=== PATIENT | male | born 1935 | race Caucasian/White ===

== ENCOUNTER 2021-12-13 14:00 | Outpatient (RCR) | payer MEDICARE, OTHER, SELFPAY | END 2022-04-29 15:07 | disposition home or self-care (01) | PROVIDERS: PCP Surgery; Visit Provider Surgery | DX: M54.2 Cervicalgia (principal); Z51.89 Encounter for other specified aftercare | CPT/HCPCS: 97116; 97140; 97162; 97535 ==

== ENCOUNTER 2022-01-16 15:20 | Emergency (ER) | payer MEDICARE, OTHER, SELFPAY ==
[2022-01-16 15:34] VITALS: BP 127/57; PULSE 87; RESP 16; TEMP 36.8; O2SAT 96; BMI 27.9
--- NOTE | 2022-01-16 15:45 | CRLHL7_ITS ---
For Patients: As a result of the Cures Act, medical imaging exams and procedure reports are released immediately into your electronic medical record. You may view this report before your referring provider. If you have questions, please contact your health care provider. INDICATION: RIGHT CALF PAIN, CURRENTLY ON BLOOD THINNERS INDICATION: Calf pain. Currently on blood thinners. TECHNIQUE: Ultrasound venous duplex lower right extremity. Compression venous exam was performed using galvan-scale, color Doppler, and spectral Doppler imaging. COMPARISON: None. FINDINGS: Sonographic imaging demonstrates the right common femoral, deep femoral, superficial femoral, popliteal, posterior tibial and greater saphenous and the contralateral left common femoral veins to be fully compressible with normal color Doppler blood flow. IMPRESSION: No DVT identified in the right lower extremity. Dictated by Augusto Mendez MD @ 01/16/2022 4:39:45 PM Dictated by: Augusto Mendez MD @ 01/16/2022 16:39:54 (Electronically Signed)
--- OUTSIDE RECORDS SUMMARY | 2022-01-16 15:53 | XMS_ITS | Encounter Summary ---
:1935 Author Organization [facility] Address [address] [place] [address] Care Team Providers Name Role Phone Elsewhere, Pcp Primary Care Provider Unavailable Reason for Visit Reason Comments Follow-up Status update after holding the Torsemide dose Encounter Details Date Type Department Care Team Description 10/07/2021 Clinical Department of Zulma Kurtz Follow-up ( Status Communication Cardiovascular Bud Anderson update after Medicine in [phone] holding the [place], [place] (Work) Torsemide dose) [address] [place] [address] Social History Tobacco Use Types Packs/Day Years Used Date Smoking Tobacco: Never Smokeless Tobacco: Never Alcohol Use Standard Drinks/Week Comments No 0 (1 standard drink = 0.6 oz pure alcoho l) Alcohol Habits Answer Date Recorded How often do you have a drink containing alcohol? Never 09/25/2021 How many drinks containing alcohol do you have on a typical Not asked day when you are drinking? How often do you have six or more drinks on one occasion? No t asked Social Isolation Answer Date Recorded In a typical week, how many times do you More than three alex es a week 09/25/2021 talk on the phone with family, friends, or neighbors? How often do you get together with friends Twice a week 09/25/2021 or relatives? How often do you attend presybeterian or More than 4 times per year 09/25/2021 spiritism services? Do you belong to any clubs or Yes 09/25/2021 organizations such as presybeterian groups, unions, fraternal or athletic groups, or school groups? How often do you attend meetings of the More than 4 times pe r year 09/25/2021 clubs or organizations you belong to? Are you now , , , 09/25/2021 , never or living with a partner? Physical Activity Answer Date Recorded On average, how many days per week do you engage in moderate to 0 days 09/25/2021 strenuous exercise (like walking fast, running, jogging, dancing, swimming, biking, or other activities that cause a light or heavy sweat)? On average, how many minutes do you engage in exercise at th is 0 min 09/25/2021 level? Stress Answer Date Recorded Do you feel stress - tense, restless, nervous, or anxious, R ather much 09/25/2021 or unable to sleep at night because your mind is troubled all the time - these days? Financial Resource Strain Answer Date Recorded How hard is it for you to pay for the very basics like Not v erica hard 09/25/2021 food, housing, medical care, and heating? Intimate Partner Violence Answer Date Recorded Within the last year, have you been afraid of your partner o r No 09/25/2021 ex-partner? Within the last year, have you been humiliated or emotionall y No 09/25/2021 abused in other ways by your partner or ex-partner? Within the last year, have you been kicked, hit, slapped, or No 09/25/2021 otherwise physically hurt by your partner or ex-partner? Within the last year, have you been raped or forced to have any No 09/25/2021 kind of sexual activity by your partner or ex-partner? Food Insecurity Answer Date Recorded Within the past 12 months, you worried that your food would Never true 09/25/2021 run out before you got money to buy more. Within the past 12 months, the food you bought just didn't N ever true 09/25/2021 last and you didn't have money to get more. Transportation Needs Answer Date Recorded In the past 12 months, has lack of transportation kept you f rom No 09/25/2021 medical appointments or from getting medications? In the past 12 months, has lack of transportation kept you f rom No 09/25/2021 meetings, work, or getting things needed for daily living? Housing Stability Answer Date Recorded In the last 12 months, was there a time when you were not ab le No 09/25/2021 to pay the mortgage or rent on time? In the last 12 months, how many places have you lived? 1 09/25/2021 In the last 12 months, was there a time when you did not hav e a No 09/25/[address] or slept in a alf (including now)? Education Answer Date Recorded What is the highest level of school Bachelor's degree (e.g., BA, AB, 05/16/2019 you have completed or the highest BS) degree you have received? Sex Assigned at Date Recorded Male 08/14/2017 2:01 PM CDT documented as of this encounter Miscellaneous Notes Telephone Encounter - Zulma Kurtz R.N. - 10/08/2021 11:46 AM CDT Pt contacted and recommendation relayed Addendum Note - Zulma Kurtz R.N. - 10/08/2021 11:46 AM CDT Addended by: ZULMA KURTZ on: 10/08/2021 11:46 AM Modules accepted: Orders Telephone Encounter - Zulma Kurtz R.N. - 10/08/2021 11:28 AM CDT SUBJECTIVE CHIEF COMPLAINT / REASON FOR CALL Follow-up (Status update after holding the Torsemide dose) Information Discussed Mr and Mrs Franz were contacted to relay Dr. Romelia Chavarria's recommendation regarding the Torsemide dose. The recommendation to make the Torsemide as needed and when to take it 3 lbs /24 hours or 5 lbs /one week was reviewed. The medication list will be updated to reflect this change. PLAN Disposition/Recommendation: Patient verbalized an understanding of the plan of care and will contactus in the interim should questions or problems arise. Information/Education: patient/caller able to teach back Caller agreeable to plan of care: yes The following references were used: provider Sae Chavarria MD Telephone Encounter - Zulma Kurtz R.N. - 10/07/2021 4:08 PM CDT SUBJECTIVE CHIEF COMPLAINT / REASON FOR CALL Follow-up (Status update after holding the Torsemide dose) Information Discussed Spoke with Mr. Nii Franz who was instructed not to take his daily Torsemide, 10 mg, for about a week. He took the last dose on 09/29/21. He reports zero headrushes the stopped the next day and feelsmuch better. Vital signs in the last week: BP: 105/58, 110/61, 115/61, 117/66,118/61, 116/61, 115/62, 121/62 HR: 69, 77, 69, 76,67, 66, 68, 70 bpm Weight has ranged: 179.1 to 180.3 [address] Mrs. Franz does an excellent job at helping Nii manage his diet and fluid intake which keeps his weight very stable in the 179 to 180 pound range. PLAN The patient was advised to continue holding the Torsemide dose until Dr. Romelia Chavarria is able to see this message and send a recommendation. The patient will be contacted with the provider's recommendation. Disposition/Recommendation: notified provider and awaiting recommendations Information/Education: patient/caller able to teach back Caller agreeable to plan of care: yes The following references were used: nursing clinical judgement and provider Sae Chavarria MD documented in this encounter Plan of Treatment Not on filedocumented as of this encounter Visit Diagnoses Not on filedocumented in this encounter Care Teams Science Liaison Relationship Specialty Start Date End Date Elsewhere, Pcp PCP - General Internal Medicine 05/29/19 documented as of this encounter
--- OUTSIDE RECORDS SUMMARY | 2022-01-16 15:53 | XMS_ITS | Clinical Summary ---
:[address] [facility] Address [address] [place] [address] Care Team Providers Name Role Phone Elsewhere, Pcp Primary Care Provider Unavailable Source Comments Patient records contain information from all sites at [facility]. For routine questions regarding patient records, call [phone] during business hours, M-F 8:00 AM - 5:00 PM Central Time. Record requests for emergency care only can be directed to [phone] at any time.[facility] Allergies Active Allergy Reactions Severity Noted Date Comments Codeine Other (see comments), High 06/09/2016 vaso-v agal episode Shortness of breath Fentanyl Nausea Only, Other (see Low 10/11/2011 Slig ht nausea after eye comments) surgery and men neeta status changes. Midazolam Other (see comments) Low 04/12/2018 Memory loss Medications Medication Sig Dispensed Refills Start Date End Date Status loratadine (CLARITIN) Take 1 tablet by 0 09/30/2013 Active 10 mg tablet mouth daily as needed for allergies. pantoprazole Take 1 tablet by 0 08/08/2016 Active (PROTONIX) 40 mg EC mouth 2 (two) tablet times a day. One tablet 30 minutes prior to morning and evening meals vit Take 1 tablet by 0 03/10/2015 Ac tive C/E/Zn/coppr/lutein/ze mouth 2 (two) axan (PRESERVISION times a day. AREDS 2 ORAL) simvastatin (ZOCOR) 20 Take 1 tablet by 0 04/09/2013 Active mg tablet mouth daily. tamsulosin (FLOMAX) Take 0.4 mg by 0 12/14/2016 Active 0.4 mg 24 hr capsule mouth daily. melatonin 3 mg tablet Take 3 mg by mouth 0 Active at bedtime. peg 400-propylene Administer 1 drop 0 12/31/2013 Active glycol (SYSTANE) into both eyes 4 0.4-0.3 % ophthalmic (four) times a day solution as needed. fluticasone (FLONASE) Administer 1 spray 0 8 Active 50 mcg/actuation nasal into each nostril spray daily as needed for rhinitis. venlafaxine XR Take 150 mg by 0 10/31/2017 Active (EFFEXOR-XR) 150 mg 24 mouth daily with hr capsule breakfast. miscellaneous medical CPAP machine for 0 04/11/2019 Active supply misc home use at pressure: 4-12 cm/H2O, Heated humidifier x 1, Humidifier chamber x 1, nasal pillow mask with pillow cushion x 1, Heated tubing x 1, Headgear x 1, Filters: Disposable x 1pk & Reusable x 1pk, Length of Need: 99 months, Frequency of use: Daily levothyroxine Take 1 tablet (100 0 05/29/2019 Active (SYNTHROID, mcg total) by LEVOTHROID) 100 mcg mouth every tablet morning. apixaban (ELIQUIS) 5 Take 1 tablet (5 30 tablet 2 06/26/2019 Active mg tablet mg total) by mouth 2 (two) times a day. Additional Information Patient taking differently: 2.5 mg oral 2 times daily, Reported on 09/28/2021 loperamide (IMODIUM A-D) 2 Take 4 mg by mouth. Take 4 0 07/08/2019 Active mg capsule mg by mouth with 1st loose stool, then 2nd with each subsequent loose stool. Max of 16 mg in 24 hours. Take every other day. acetaminophen (TYLENOL) 500 Take 1,000 mg by mouth as 0 07/08/2019 Active mg tablet needed. Carafate 100 mg/mL TAKE 2 TEASPOONSFUL (10 ML) 900 mL 11 08/2020 Active suspension THREE TIMES A DAY AFTER MEALS Additional Information Patient taking differently: As needed, Reported on 09/28/2021 cyanocobalamin (VITAMIN Take 1,000 mcg by 0 Active B12) 1,000 mcg tablet mouth daily. Entresto 97-103 mg per TAKE 1 TABLET TWICE 180 tablet 3 2021 Active tablet A DAY famotidine (PEPCID) 40 mg Take 40 mg by mouth 0 04/28 Active tablet daily. metoprolol succinate Take 1 tablet (50 mg 180 tablet 3 022 07/06/2022 Active (TOPROL-XL) 50 mg 24 hr total) by mouth 2 tablet (two) times a day. Do not crush or chew. diclofenac sodium APPLY 2 GRAMS 0 08/06/2021 Active (VOLTAREN) 1 % gel TOPICALLY TO THE AFFECTED AREA FOUR TIMES DAILY torsemide (DEMADEX) 10 mg Take 1 tablet (10 mg 90 tablet 3 Active tablet total) by mouth as needed (take a dose if you have gain 3 lbs /24 hours or 5 lbs /1 week). Active Problems Patient Care Coordination Note Formatting of this note is different fro m the original. Interdisciplinary plan of care: Work together to start Entresto and incr ease it to the target dose identified by the provider. Improve heart failure self management th rough education including use of a sick day plan when appropriate. ? ? Follow a low sodium diet 2,000 mg or less per day ? ? Weigh daily ? ? Increase awareness of symptoms indicating worsening heart failure and/or fluid retention ? ? Optimize medications Entresto, spironolactone, Toprol XL as ordered by prescriber ? ? Contact RN healthcare administrative assistant for sudden weight gain or worsening symptoms ? ? 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 They have a mind of their own. 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 Stable. Was on iron but was stopped as this did not help. 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 Polyp Colon 05/18/2011 Overview: Overview: Colonoscopy 04/2011 polyp,Colonoscopy in 5 years Colonoscopy 02/2018 polyps, normal colon biopsies, repeat in 3 years depending upon health Dysfunction Erectile 05/09/2011 Varicose Vein Lower Extremity 05/09/2011 PreDiabetes 12/29/2009 Restless Leg Syndrome 12/29/2009 Hyperlipidemia Mixed 05/29/2009 Rhinitis Allergic 05/29/2009 Hypothyroidism 11/12/2006 Immunizations Name Administration Dates Next Due DT, Pediatric 09/13/1991 H1N1 All Forms 03/23/2009 H1N1 Inj 03/23/2009 HZV (ZOSTAVAX) 01/17/2011 Influenza (IM) Preservative Free 12/15/2009 Influenza Split 11/26/2012 Influenza TIV (IM) 11/27/2018, 12/06/2012, 12/23/2011, 12/15/2009, 12/02/2008, 01/06/2004 Influenza, Seasonal, Injectable 12/06/2012, 12/23/2011, 0910/2008, 01/06/2004 Influenza, Unspecified 11/27/2018, 12/28/2015 PCV13 10/17/2014 PPSV23 09/19/2018, 12/25/2000 RZV (SHINGRIX) 10/16/2018, 08/13/2018 Td (Adult), adsorbed 11/08/2002 Tdap 01/31/2013, 12/31/2012 influenza high dose (65 years or 11/17/2017, 11/14/2016, 05/2015, older) (PF) 12/03/2014, 12/02/2014, 11/26/2012, 11/28/2010 Family History Medical History Relation Name Comments Colon cancer Brother Sher Leonard Dementia Brother Sher Leonard FTD Breast cancer Daughter 1 Regine Jasmine Colon polyps Daughter 1 Regine Kenroy Breast cancer Daughter 2 Isis Shravan Migraines Daughter 2 Isis Shravan Coronary artery disease Father Paul Leonard Stroke Maternal Grandfather [place] Diabetes Maternal Grandmother Megan Soto Breast cancer Mother Qi Leonard Depression Mother Qi Leonard Diabetes Mother Qi Leonard Diabetes Mother's Sister Ludy Delcid Coronary artery disease Paternal Grandfather Sher leonard Ovarian cancer Paternal Grandmother Georgette Leonard Other cancer Sister Mirtha Castillo Colorectal Rectal cancer Sister Mirtha Castillo Relation Name Status Comments Brother Sher Leonard Daughter 1 Regine Jasmine Daughter 2 Isis Shravan Father Paul Leonard Maternal Grandfather [place] Maternal Grandmother Megan [place]oto Mother Qi Leonard Mother's Sister Ludy Delcid Paternal Grandfather Sher leonard Paternal Grandmother Georgette Leonard Sister Mirtha Castillo Social History Tobacco Use Types Packs/Day Years Used Date Smoking Tobacco: Never Smokeless Tobacco: Never Tobacco Cessation: Counseling Given: No Alcohol Use Standard Drinks/Week Comments No 0 [...] or relatives? How often do you attend temple or More than 4 times per year 09/25/2021 restorationist services? Do you belong to any clubs or Yes 09/25/2021 organizations such as temple groups, unions, fraternal or athletic groups, or [...] place to sleep or slept in a prison (including now)? Education Answer Date Recorded What is the highest level of school Bachelor's degree (e.g., BA, AB, 05/16/2019 you have completed or the highest BS) degree you have received? Sex Assigned at Date Recorded Male 08/14/2017 2:01 PM CDT Last Filed Vital Signs Vital Sign Reading Time Taken Comments Blood Pressure 125/66 09/29/2021 12:59 PM CDT Pulse 79 09/29/2021 12:59 PM CDT Temperature 36.4 ??C (97.5 ??F) 05/29/2019 3:56 AM CHIEF METEOROLOGIST Respiratory Rate 14 05/29/2019 7:00 AM CHIEF METEOROLOGIST Oxygen Saturation 94% 05/29/2019 4:00 AM CHIEF METEOROLOGIST Inhaled Oxygen Concentration - - Weight 84.2 kg (185 lb 10 oz) 09/29/2021 12:59 PM CDT Height 167.7 cm (5' 6.02) 09/29/2021 12:59 PM CDT Body Mass Index 29.94 09/29/2021 12:59 PM CDT Plan of Treatment Health Maintenance Due Date Last Done Comments CT Colonography 1935 Cologuard 1935 Colonoscopy 05/09/2016 05/09/2011 (Performed elsewhere) Colorectal Cancer Surveillance 05/09/2016 Depression Screening (Annual 03/27/2021 PHQ-2) Fall Risk Screen (Annual) 03/27/2021 Creatinine Level 09/29/2022 09/29/2021, 07/06/2021, 04/06/2021, Additional history exists Fasting Glucose for Diabetes 09/29/2022 09/29/2021, 022, Screening 04/06/2021, Additional history exists Potassium Level 09/29/2022 09/29/2021, 07/06/2021, 04/06/2021, Additional history exists Sodium Level 09/29/2022 09/29/2021, 07/06/2021, 04/06/2021, Additional history exists DTaP,Tdap,and Td Vaccines (5 - Td 01/31/2023 01/31/2013, , or Tdap) 11/08/2002, Additional history exists Pneumococcal vaccine (65+ years) Completed 09/19/2018, , 12/25/2000 Zoster Vaccines Completed 10/16/2018, 08/13/2018, 01/17/2011 COVID-19 Vaccine Completed 12/03/2021, 06/26/2021, 12/22/2020, Additional history exists Influenza Vaccine Completed 12/03/2021, 11/09/2020, 11/09/2020, Additional history exists Medical Devices Implanted Type Area Log Hooker Device Shelf Model / Identifier Expiration Date Ser ial / Lot Ocular Lens Ocular Lens Right: Eye Insurance Payer Benefit Plan Subscriber ID Effective Phone Address Typ e / Group Dates MEDICARE MEDICARE A [id number] 2000-Prese [address] Medicare [place] [facility] [place] [address] FOR FOR [id number] 2017-Prese [phone] [address] Indemnity LIFE LIFE [address] [place] [address] [phone] (Home) [place] [address] Advance Directives For more information, please contact: [phone] Documents on File Type Date Recorded 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 See document viewer. Latest Code Status on File Code Status Date Activated Date Inactivated Comments Full Code 05/26/2019 9:33 PM 05/29/2019 5:55 PM Question Answer Comments Full Code: Discussed Care Teams Wallpaper Installer Relationship Specialty Start Date End Date Elsewhere, Pcp PCP - General Internal Medicine 05/29/19
--- OUTSIDE RECORDS SUMMARY | 2022-01-16 15:53 | XMS_ITS | Encounter Summary ---
:1935 Author Organization [facility] Address [address] [place] [id number] Care Team Providers Name Role Phone Elsewhere, Pcp Primary Care Provider Unavailable Encounter Details Date Type Department Care Team Description 09/29/2021 Hospital Encounter Department of Chago Acosta Atrial (HCC); Laboratory Medicine Bryan Cortes Cardiomyopathy Dilated (HCC) and Pathology, [address] [place] [address], in [facility] [address] [place] [phone] [place] [address] (Work) [place], [place] [phone] [phone] (Fax) [phone] Social History Tobacco Use Types Packs/Day Years [...] many times do you More than three aelx es a week 09/25/2021 talk on the phone with family, friends, or neighbors? How often do you get together with friends Twice a week 09/25/2021 or relatives? How often do you attend hinduism or More than 4 times per year 09/25/2021 orthodox services? Do you belong to any clubs or Yes 09/25/2021 organizations such as hinduism groups, unions, fraternal or athletic groups, or [...] place to sleep or slept in a snf (including now)? Education Answer Date Recorded What is the highest level of school Bachelor's degree (e.g., BA, AB, 05/16/2019 you have completed or the highest BS) degree you have received? Sex Assigned at Date Recorded Male 08/14/2017 2:01 PM CDT documented as of this encounter Medications at Time of Discharge Medication Sig Dispensed Refills Start Date End Date acetaminophen (TYLENOL) Take 1,000 mg by 0 2019 500 mg tablet mouth as needed. apixaban (ELIQUIS) 5 mg Take 1 tablet (5 mg 30 tablet 2 03/2019 tablet total) by mouth 2 (two) times a day. Carafate 100 mg/mL TAKE 2 TEASPOONSFUL 900 mL 11 09/30/19 21 suspension (10 ML) THREE TIMES A DAY AFTER MEALS cyanocobalamin (VITAMIN Take 1,000 mcg by 0 B12) 1,000 mcg tablet mouth daily. diclofenac sodium APPLY 2 GRAMS 0 08/06/2021 (VOLTAREN) 1 % gel TOPICALLY TO THE AFFECTED AREA FOUR TIMES DAILY Entresto 97-103 mg per TAKE 1 TABLET TWICE A 180 tablet 3 tablet DAY famotidine (PEPCID) 40 Take 40 mg by mouth 0 04/28 mg tablet daily. fluticasone (FLONASE) Administer 1 spray 0 2017 50 mcg/actuation nasal into each nostril spray daily as needed for rhinitis. levothyroxine Take 1 tablet (100 0 05/29/2019 (SYNTHROID, LEVOTHROID) mcg total) by mouth 100 mcg tablet every morning. loperamide (IMODIUM Take 4 mg by mouth. 0 020 A-D) 2 mg capsule Take 4 mg by mouth with 1st loose stool, then 2nd with each subsequent loose stool. Max of 16 mg in 24 hours. Take every other day. loratadine (CLARITIN) Take 1 tablet by 0 10/01/19 14 10 mg tablet mouth daily as needed for allergies. melatonin 3 mg tablet Take 3 mg by mouth at 0 bedtime. metoprolol succinate Take 1 tablet (50 mg 180 tablet 3 07/0607/06/2022 (TOPROL-XL) 50 mg 24 hr total) by mouth 2 tablet (two) times a day. Do not crush or chew. miscellaneous medical CPAP machine for home 0 supply misc use at pressure: 4-12 cm/H2O, Heated humidifier x 1, Humidifier chamber x 1, nasal pillow mask with pillow cushion x 1, Heated tubing x 1, Headgear x 1, Filters: Disposable x 1pk & Reusable x 1pk, Length of Need: 99 months, Frequency of use: Daily pantoprazole (PROTONIX) Take 1 tablet by 0 2016 40 mg EC tablet mouth 2 (two) times a day. One tablet 30 minutes prior to morning and evening meals peg 400-propylene Administer 1 drop 0 12/31/2013 glycol (SYSTANE) into both eyes 4 0.4-0.3 % ophthalmic (four) times a day as solution needed. simvastatin (ZOCOR) 20 Take 1 tablet by 0 014 mg tablet mouth daily. tamsulosin (FLOMAX) 0.4 Take 0.4 mg by mouth 0 mg 24 hr capsule daily. venlafaxine XR Take 150 mg by mouth 0 10/31/2017 (EFFEXOR-XR) 150 mg 24 daily with breakfast. hr capsule vit Take 1 tablet by 0 03/10/2015 C/E/Zn/coppr/lutein/benja mouth 2 (two) times a joe (PRESERVISION AREDS day. 2 ORAL) torsemide (DEMADEX) 10 Take 1 tablet (10 mg 60 tablet 3 10/08/2021 mg tablet total) by mouth every other day. Weigh yourself daily. Take an extra 10 mg if you gain 2 lbs in 1 day or 5 lbs in 1 week documented as of this encounter Plan of Treatment Not on filedocumented as of this encounter Procedures Procedure Name Priority Date/Time Associated Diagnosis Comme nts THYROID FUNCTION Routine 09/29/2021 12:03 PM Flutter Atr ial (HCC) Results for this CASCADE, S CDT Cardiomyopathy procedure are in Dilated (HCC) the results section. CBC WITH Routine 09/29/2021 12:03 PM Flutter Atri al ([facility]) Results for this DIFFERENTIAL, B CDT Cardiomyopathy procedure are in Dilated (HCC) the results section. BASIC METABOLIC Routine 09/29/2021 12:03 PM Flutter Atri al (HCC) Results for this PANEL, S/P CDT Cardiomyopathy procedure are in Dilated (HCC) the results section. documented in this encounter Results Thyroid Function [place] (09/29/2021 12:03 PM CDT) P athologist Signature TSH, Sensitive 4.0 0.3 - 4.2 09/29/2021 DTL mIU/L 1:21 PM CDT Specimen Anatomical Collection Method Collection Time Receive d Time (Source) Location / / Volume Laterality Blood (Blood, 09/29/2021 12:03 09/29/2021 Venous) PM CDT 12:42 PM CDT Chago Acosta M.D. LAB BLOOD ADD-ON Performing Organization Address City/State/ZIP Code Phon e Number [facility] - [address] [place], [place] [address] [facility] [place] [address] Laboratories-[facility] [address] [facility] (ABNORMAL) CBC with Differential, Blood (09/29/2021 12:03 PM CDT) Patholo gist Method Time Signature Hemoglobin 10.7 (L) 13.2 - 09/29/2021 DTL 16.6 g/dL 1:16 PM CDT Hematocrit 34.9 (L) 38.3 - 09/29/2021 DTL 48.6 % 1:16 PM CDT Erythrocytes 3.73 (L) 4.35 - 09/29/2021 DTL 5.65 1:16 PM CDT x10(12)/L MCV 93.6 78.2 - 09/29/2021 DTL 97.9 fL 1:16 PM CDT RBC Distrib Width 13.2 11.8 - 09/29/2021 DTL 14.5 % 1:16 PM CDT Platelet Count 291 135 - 317 09/29/2021 DTL x10(9)/L 1:16 PM CDT Leukocytes 6.9 3.4 - 9.6 09/29/2021 DTL x10(9)/L 1:16 PM CDT Neutrophils 4.81 1.56 - 09/29/2021 DTL 6.45 1:16 PM CDT x10(9)/L Lymphocytes 1.13 0.95 - 09/29/2021 DTL 3.07 1:16 PM CDT x10(9)/L Monocytes 0.75 0.26 - 09/29/2021 DTL 0.81 1:16 PM CDT x10(9)/L Eosinophils 0.13 0.03 - 09/29/2021 DTL 0.48 1:16 PM CDT x10(9)/L Basophils 0.03 0.01 - 09/29/2021 DTL 0.08 1:16 PM CDT x10(9)/L Specimen Anatomical Collection Method Collection Time Receive d Time (Source) Location / / Volume Laterality Blood (Blood, 09/29/2021 12:03 09/29/2021 Venous) PM CDT 12:22 PM CDT Chago Acosta M.D. LAB BLOOD ADD-ON Performing Organization Address City/State/ZIP Code Phon e Number [facility] - [address] [place] [phone] [facility] [place] [address] [facility] [address] [facility] (ABNORMAL) Basic Metabolic Panel (09/29/2021 12:03 PM CDT) Analysis Performed At Patho logist Time Signature Potassium, S 4.7 3.6 - 5.2 09/29/2021 DTL mmol/L 1:21 PM CDT Sodium, S 140 135 - 145 09/29/2021 DTL mmol/L 1:21 PM CDT Chloride, S 103 98 - 107 09/29/2021 DTL mmol/L 1:21 PM CDT Bicarbonate, S 27 22 - 29 09/29/2021 DTL mmol/L 1:21 PM CDT Anion Gap 10 7 - 15 09/29/2021 DTL 1:21 PM CDT BUN (Blood Urea 27 (H) 8 - 24 09/29/2021 DTL Nitrogen), S mg/dL 1:21 PM CDT Creatinine 1.48 (H) 0.74 - 09/29/2021 DTL 1.35 mg/dL 1:21 PM CDT eGFR-Non 42 (L) >=60 09/29/2021 DTL Black/ mL/min/BSA 1:21 PM CDT Monegasque Comment: ----ADDITIONAL INFORMATION---- Estimated GFR calculated using the 2009 CKD_EPI creatinine equation. eGFR-Black/ 49 (L) >=60 mL/min/BSA 2021 1:21 PM CDT DTL Comment: ----ADDITIONAL INFORMATION---- Estimated GFR calculated using the 2009 CKD_EPI creatinine equation. Calcium, Total, S 9.4 8.8 - 10.2 mg/dL 09/29/2021 1:21 PM CDT DTL Glucose, S 103 70 - 140 mg/dL 09/29/2021 1:21 PM CDT D TL Specimen Anatomical Collection Method Collection Time Receive d Time (Source) Location / / Volume Laterality Blood (Blood, 09/29/2021 12:03 09/29/2021 Venous) PM CDT 12:42 PM CDT Chago Acosta M.D. LAB BLOOD ADD-ON Performing Organization Address City/State/ZIP Code Phon e Number [facility] - [address] [place], [place] [address] [facility] [place] [address] [facility] [address] documented in this encounter Visit Diagnoses Diagnosis Flutter Atrial (HCC) Cardiomyopathy Dilated (HCC) documented in this encounter Care Teams Eyeglass Cutter Relationship Specialty Start Date End Date Elsewhere, Pcp PCP - General Internal Medicine 05/29/19 documented as of this encounter
--- OUTSIDE RECORDS SUMMARY | 2022-01-16 15:53 | XMS_ITS | Clinical Summary ---
:1935 Author Organization [facility] [place] [address] Care Team Providers Name Role Phone Valentino Thomas MD Primary Care Provider Allergies Active Allergy Reactions Severity Noted Date Comments Codeine Other - Describe In 11/17/2015 Was unab le to walk Comment Field Other reaction (s): Other (see comm ents) vaso-vagal epis ode Fentanyl Nausea Only 10/11/2011 Slight nausea a fter eye surgery and mental status changes. Slight nausea a fter eye surgery and mental status changes. Unlisted Allergen 11/10/2006 seasonal (Include Detail In allergies -head and Comments) nasal congestio n Midazolam Sedation 10/11/2011 Other reaction( s): Other (see comm ents) Memory loss Medications Medication Sig Dispensed Refills Start Date End Date Status artificial tears, Place 1 Drop into 0.1 mL 0 12/31/2013 Active peg 400-propylene both eyes every 2 glycol, (SYSTANE) hours if needed for 0.4-0.3 % drop Dry Eyes. ophthalmic melatonin 3 mg 0 Activ e tablet vit Take 1 capsule by 0 06/06/2019 A ctive C,Y-Jt-dwaag-lutein- mouth 2 times zeaxan capsule daily. acetaminophen Take 2 tablets by 0 07/08/2019 Active (TYLENOL EXTRA mouth 3 times daily STRGTH) 500 mg if needed. Max tablet acetaminophen dose: 4000mg in 24 hrs. loperamide (IMODIUM) Take 4mg by mouth with 1st l oose stool, then 2mg with each subsequent loose stool. Max 16 mg in 24 hrs 48 capsule 1 07/08/2019 Active 2 mg capsule Take every other day fluticasone (50 mcg USE 1 SPRAY IN EACH 48 g 0 02/20/2020 Active per actuation) nasal NOSTRIL DAILY solution (FLONASE)Indications : Allergic rhinitis, unspecified seasonality, unspecified trigger ENTRESTO 97 MG-103 0 04/29/2020 Active MG TABLET 97-103 mg tablet CPAPIndications: JESSE CPAP machine for 1 Each 9 11/25/2020 Active (obstructive sleep home use at apnea) pressure 10cmw, nasal mask x1/3month with nasal pillows x 2/mo levothyroxine Take 1 Tablet (100 90 Tablet 3 06/04/2021 Active (SYNTHROID) 100 mcg mcg) by mouth once tabletIndications: daily. Best if Acquired taken on empty hypothyroidism stomach. cyanocobalamin Take 1 Tablet 90 Tablet 3 06/04/2021 Active (Vitamin B-12) 1,000 (1,000 mcg) by mcg mouth once daily. tabletIndications: B12 deficiency famotidine (PEPCID) Take 1 Tablet (40 90 tablet. 3 06/04/2021 Active 40 mg mg) by mouth once tabletIndications: daily. 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 Dysthymia simvastatin (ZOCOR) Take 1 Tablet (20 90 Tablet 3 06/04/2021 Active 20 mg mg) by mouth once tabletIndications: daily. 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 3 08/07/19 Active 0.4 mg mg) by mouth once capsuleIndications: daily after a meal. Enlarged prostate metoprolol succinate Take 1 Tablet (50 180 Tablet 3 08/06/2021 Active (TOPROL XL) 50 mg mg) by mouth 2 sustained-release times daily. tabletIndications: Systolic heart failure, unspecified HF chronicity (HC) torsemide (DEMADEX) One tablet by mouth 45 Tablet 3 08/06/2021 Active 10 mg every third or tabletIndications: fourth day Systolic heart failure, unspecified HF chronicity (HC) apixaban (ELIQUIS) 5 Take 0.5 Tablets 180 tablet. 3 08/06/2021 Active mg (2.5 mg) by mouth 2 tabletIndications: times daily. Atrial flutter, unspecified type (HC) diclofenac topical Apply 2 g topically 100 g 0 08/06/2021 Active (VOLTAREN) 1 % to affected area(s) gelIndications: Neck 4 times daily. pain on right side sucralfate Take 10 mL three 414 mL 3 11/07/2021 A ctive (Carafate) 100 mg/mL times daily after suspensionIndication meals as needed for s: Vicente's stomach discomfort. 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 They have a mind of their own. Benign prostatic hyperplasia without lower urinary tra ct symptoms 12/31/2015 Anemia 05/02/2014 Overview: Chronically 12-13 since at least 2009, p robably longer. Stable. Was on iron but was stopped as this did not help. JESSE 01/12/2015 AHI- 40 04/14/2014 Knee pain, right 09/23/2013 Meningioma 08/22/2013 Overview: Monitored at [facility], not removed Esophageal cancer 04/04/2013 Overview: EGD 03/2013 Vicente's with small esophage al cancer, refer to [facility] Colon polyp 05/18/2011 Overview: Colonoscopy 04/2011 polyp,Colonoscopy in 5 years Colonoscopy 02/2018 polyps, normal colon biopsies, repeat in 3 years depending upon health Erectile dysfunction 05/09/2011 Asymptomatic varicose veins 05/09/2011 Restless leg syndrome 12/29/2009 Prediabetes 12/29/2009 Allergic rhinitis, cause unspecified 05/29/2009 Mixed hyperlipidemia 05/29/2009 Unspecified hypothyroidism 11/12/2006 Dysthymic disorder Resolved Problems Problem Noted Date Resolved Date Controlled type 2 diabetes mellitus without complication, 01/24/2018 without long-term current use of insulin Overweight (BMI 25.0-29.9) 09/23/2013 10/17/2014 Parkinson disease 09/23/2013 07/23/2015 Intracranial meningioma 04/11/2013 08/06/2021 JESSE (obstructive sleep apnea) 03/25/2013 05/02/2014 Shoulder pain, left 12/30/2011 06/22/2012 Obesity, unspecified 10/11/2011 09/23/2013 BMI 32.0-32.9,adult 07/25/2011 10/11/2011 Unspecified anemia 12/29/2009 05/02/2014 Psychosexual dysfunction with inhibited sexual excitement 05/09/2011 Dysthymic disorder 11/22/2006 07/28/2008 Other and unspecified hyperlipidemia Encounters Date Type Specialty Care Team Description 11/06/2021 Refill Valentino Thomas MD Refi ll Request (sucralfate (Carafate) 100 mg/mL suspension) from Last 3 Months Immunizations Name Administration Dates Next Due COVID-19 vaccine ([facility] 05/30/2020, 05/09/2020 30mcg/0.3mL) PF, V DT (Age < 7 years) 09/13/1991 Influenza A (H1N1), Inactivated (Age 1203/23/2009 >=3 Years) Influenza Virus, Unspecified 12/28/2015, 12/15/2009 Influenza, High-dose Inactivated 11/17/2017, 11/14/2016, 11/2014, 12/02/2014, 11/28/2010 Influenza, High-dose Quadrivalent 11/09/2020, 11/16/2019 Inactivated Influenza, IIV3 (Age >=3 years) 12/06/2012, 12/23/2011, 11/26, 12/02/2008, 01/06/2004 Influenza, Inactivated AIIV4 (Age 65+ 11/09/2020, 11/16/2019 Years) Preserv Free Influenza, Inactivated IIV3 (Age 65+ 11/27/2018 Years) Preserv Free Pneumococcal Poly,23-Valent 09/19/2018, 12/25/2000 (Pneumovax) Pneumococcal conj 13-Valent (Prevnar 10/17/2014 13) Td (Age >=7 Years) 11/08/2002 Tdap 01/31/2013 Zoster (Shingrix-RZV, recombinant) 10/16/2018, 08/13/2018 Zoster (Zostavax-ZVL, live) 01/17/2011 Family History Medical History Relation Name Comments Cancer-colon Brother 2 colon cancer 69 Cancer-breast Daughter 1 Cancer-breast Daughter 2 Other Father d79, heart Cancer-breast Maternal Aunt Stroke Maternal Grandfather Cancer-breast Mother Other Mother [id number] unknown canc er, ? colon Heart attack Paternal Grandfather Relation Name Status Comments Brother 1 Alive Brother 2 Daughter 1 Daughter 2 Father Maternal Aunt Maternal Grandfather Mother Paternal Grandfather Sister Alive Social History Tobacco Use Types Packs/Day Years Used Date Never Smoker Smokeless Tobacco: Never Used Tobacco Cessation: Counseling Given: Yes Alcohol Use Standard Drinks/Week Comments No 0 (1 standard drink = 0.6 oz pure alcoho l) Sex Assigned at Date Recorded Male 10/30/2019 2:52 PM CDT Obstetrics History Last Filed Vital Signs Vital Sign Reading Time Taken Comments Blood Pressure 85/45 08/06/2021 1:24 PM CDT Pulse 76 08/06/2021 1:24 PM CDT Temperature 36.7 ??C (98 ??F) 07/15/2021 4:34 PM CDT Respiratory Rate 18 11/16/2017 4:01 PM CDT Oxygen Saturation 97% 08/06/2021 1:24 PM CDT Inhaled Oxygen Concentration - - Weight 86.4 kg (190 lb 8 oz) 08/06/2021 1:24 PM CDT Height 168.2 cm (5' 6.22) 08/06/2021 1:24 PM CDT Body Mass Index 30.54 08/06/2021 1:24 PM CDT Plan of Treatment Upcoming Encounters Date Type Specialty Care Team Description 02/08/2022 Office Visit Valentino Thomas MD [address] [place], [place] [address] (Wo rk) Health Maintenance Due Date Last Done Comments COVID-19 vaccine series (5 - 08/21/2021 06/26/2021, 021, Booster for Pfizer series) 05/30/2020, Additiona l history exists Influenza for age 65+ 11/25/2021 11/09/2020, 11/09/2020, 11/16/2019, Additional history exists BMI (ht and wt on same day) for 08/06/2022 08/06/2021, 06/26, age 18+ 06/04/2021, Additional history exists Medicare Wellness for age 65+ 08/06/2022 08/06/2021, 2020, 05/24/2018, Additional history exists Depression screening for age 12+ 09/06/2022 09/06/2021, , 08/06/2021, Additional history exists Tetanus booster 01/31/2023 01/31/2013, 11/08/2002 Tdap Completed 01/31/2013 Pneumococcal series for age 65+ Completed 09/19/2018, 09/25, 12/25/2000 Zoster (shingles) series for age Completed 10/16/2018, , 50+ 01/17/2011 Results Not on filefrom Last 3 Months Insurance Payer Benefit Plan / Subscriber ID Effective Dates Phone Addre ss Type Group MEDICARE PART B MEDICARE PART B [id number] 2000-Present ATTN: CLAIMS - HB USE ONLY HB ONLY [address] [place] [address] MEDICARE - PB MEDICARE PB [id number] 2000-Present ATT N: CLAIMS USE ONLY ONLY [address] [place] [address] FOR [id number] 2014-Prese [address] [place] [address] Advance Directives Documents on File Type Date Recorded Patient P D Driver Explanati on Healthcare Directive 06/13/2014 12:10 PM ROSA TRUJILLO, 06/08/2014 Care Teams Supervisor Front Relationship Specialty Start Date End Date Valentino Thomas MD PCP - General Family Practice 01/18/[address] [place] [address]
--- OUTSIDE RECORDS SUMMARY | 2022-01-16 15:54 | XMS_ITS | Encounter Summary ---
:1935 Author Organization [facility] Address [address] [place] [address] Care Team Providers Name Role Phone Elsewhere, Pcp Primary Care Provider Unavailable Reason for Referral Outpatient (Routine) - Closed Specialty Diagnoses / Procedures Referred By Contact Refer red To Contact Diagnoses Regurgitation Aortic [facility] Procedures Echo Transthoracic (TTE) Kam Adams, M.S. [address] [place] [address] Referral ID Status Reason Start Date Expiration Date Visits Requ ested Visits Authorized [id number] Closed 12/02/2020 12/02/2021 1 1 Reason for Visit Outpatient (Routine) - Closed Specialty Diagnoses / Procedures Referred By Contact Refer red To Contact Diagnoses Regurgitation Aortic [facility] Procedures Echo Transthoracic (TTE) Barbara AdamsM., M.S. [address] [place] [address] Referral ID Status Reason Start Date Expiration Date Visits Requ ested Visits Authorized [id number] Closed 12/02/2020 12/02/2021 1 1 Encounter Details Date Type Department Care Team Description 12/09/2020 Hospital Encounter Department of Abou Regurgit ation Aortic Cardiovascular Diseases Aura, in [facility] lizett Quevedo F, [address] C[address] [place] [phone] 200 [place] [address] Social History Tobacco Use Types Packs/Day Years [...] or relatives? How often do you attend adventist or More than 4 times per year 09/25/2021 scientology services? Do you belong to any clubs or Yes 09/25/2021 organizations such as adventist groups, unions, fraternal or athletic groups, or [...] minutes do you engage in exercise at is 0 min 09/25/2021 level? Stress Answer [...] place to sleep or slept in a correction (including now)? Education Answer Date Recorded What [...] 0 B12) 1,000 mcg tablet mouth daily. fluticasone (FLONASE) Administer 1 spray 0 [...] 3 mg by mouth at 0 bedtime. miscellaneous medical CPAP machine for home 0 supply [facility] use at pressure: 4-12 cm/H2O, Heated humidifier [...] a joe (PRESERVISION AREDS day. 2 ORAL) ferrous sulfate 220 mg Take 220 mg by mouth 0 07/06/2021 (44 mg iron)/5 mL daily. elixir metoprolol succinate Take 1.5 tablets (75 270 tablet 3 07/1307/06/2021 (TOPROL-XL) 50 mg 24 hr mg total) by mouth 2 tablet (two) times a day. Do not crush or chew. sacubitriL-valsartan Take 1 tablet by 180 tablet 3 1 06/10/2021 (ENTRESTO) 97-103 mg mouth 2 (two) times a per tablet day. torsemide (DEMADEX) 10 Take 1 tablet (10 [...] Name Priority Date/Time Associated Diagnosis Comme nts (TTE) 2D ECHO Routine 12/09/2020 12:33 Regurgitation Aortic Re sults for this DOPPLER COLOR PM CDT procedure are in the results section. documented in this encounter Results (TTE) 2D ECHO DOPPLER COLOR (12/09/2020 12:33 PM CDT) [facility] Method Time Signature Ejection Fraction 38 MC CV EIMS Sinus of Valsalva 45 MC CV EIMS Sinotubular Junction 36 MC CV EIM S Proximal Ascending 44 MC CV EIMS Aorta Mid-Ascending Aorta 45 MC CV EIMS LV Mass Index 124 MC CV EIMS LV End-Diastolic 61 MC CV EIMS Diameter LV End-Systolic 49 MC CV EIMS Diameter MV E Velocity 0.5 MC CV EIMS MV A Velocity 0.9 MC CV EIMS MV E/A 0.56 MC CV EIMS MV e' Velocity 0.04 MC CV EIMS Medial MV e' Velocity 0.05 MC CV EIMS Lateral MV E/e' Medial 12.5 MC CV EIMS MV E/e' Lateral 10.0 MC CV EIMS Left ventricular 51 MC CV EIMS stroke volume index Cardiac Output 5.98 MC CV EIMS Cardiac Index 2.93 MC CV EIMS LV Interventricular 10 MC CV EIMS Septal Wall Thickness LV Posterior Wall 10 MC CV EIMS Thickness LV Relative Wall 33 MC CV EIMS Thickness Tricuspid Annular S? 0.14 MC CV EIMS TR Vmax 2.30 MC CV EIMS RA Pressure 5 MC CV EIMS RV Systolic Pressure 26 MC CV EIM S AV mean gradient 6 MC CV EIMS Aortic valve area 3.02 MC CV EIMS Aortic Valve 0.67 MC CV EIMS Dimensionless Index AV regurgitant 37 MC CV EIMS volume LA Volume Index 36 MC CV EIMS Anatomical Region Laterality Modality Echocardiography Specimen (Source) Anatomical Collection Method Collection Time Re ceived Time Location / / Volume Laterality 12/09/2020 10:09 AM CDT Impressions 12/09/2020 12:25 PM CDT Last full echocardiogram performed 05/27/2019. ??Echocardiogram performed per left ventricular function protocol for aortic regurgitati on assessment. ??LEFT VENTRICLE: ??Severely enlarged left ventricular chamber size. ??Abnormal lef t ventricular geometry with mild- moderate eccentric left ventricular hypertrophy. ??Left ventricu lar mass index by 2D 124 g/m^2. ??Calculated 3-D volumetric left ventricular ejection fra ction 38 %. ??Moderate generalized left ventricular hypokinesis with regional variability. ? ?Abnormal ventricular septal motion due to conduction. Grade 1/3 left ventricular diastolic dys function, consistent with low to normal left ventricular filling pressure at rest. ?? RIGHT VENTRICLE: ??Normal right ventricular chamber size. Normal right ventricular systolic funct ion. ??Estimated right ventricular systolic pressure 26 mmHg (systolic blood pressure 142 mmHg). ??ATRIA: ??Mildly enlarged left atrial size. ??Left atrial volume index 36 ml/m^2. ??Normal right atrial size by visual estimate. ??CARDIAC VALVES: Trileaflet aortic valve. ??Sclerotic aor tic valve. ??Moderate aortic valve regurgitation. ??Aortic regurgitation ERO (PISA) 0.17 cm^2. ??Ao rtic regurgitant volume (PISA) 37 ml. ??Thickened mitral valve. ??Trivial mitral valve regurgitat ion. ??Normal tricuspid valve. ??Trivial tricuspid valve regurgitation. ??OTHER ECHO FINDINGS: ?? Normal inferior vena cava size with normal inspiratory collapse (>50%). ??Mildly enlarged mid a scending aorta diameter (diameter 45 mm at mid level). Upper limit of normal for this patient i s 44 mm. ??Mildly enlarged sinus of Valsalva diameter (diameter 45 mm). ??Upper limit of teofilo l for this patient is 44 mm. ??Suboptimal suprasternal notch view. ??Lipomatous atrial septum. ??Redundant atrial septal flap. ??No atrial level shunt by color flow imaging. ??No intracardiac ma ss or thrombus, but the left atrial appendage cannot be visualized adequately with transthoracic echo to exclude thrombus in this location. ??No pericardial effusion. For the complete report, see the [facility] Documents. Narrative 12/09/2020 12:25 PM CDT For the complete report, see the [facility] Documents. Final Impressions 1. Moderate aortic valve regurgitation. ??Sclerotic aortic valve. 2. Severely enlarged left ventricular ch batool size, moderate generalized hypokinesis (with abnormal septal motion due to conduction ), calculated 3-D volumetric ejection fraction 38 %. 3. Grade 1/3 left ventricular diastolic dysfunction, consistent with low to normal left ventricular filling pressure at rest. 4. Normal right ventricular chamber size , normal systolic function, estimated right ventricular systolic pressure 26 mmHg (systolic bloo d pressure 142 mmHg). 5. Mildly enlarged mid ascending aorta d iameter (diameter 45 mm at mid level). 6. Mildly enlarged sinus of Valsalva alesia meter (diameter 45 mm). 7. No pericardial effusion. 8. Compared to the report of 11/05/2020 no significant change has occurred. Side by side comparison of images performed. Procedure Note Chago Dorsey M.D. - 12/09/2020Format ting of this note might be different from the original. For the complete report, see the [facility] Documents. Final Impressions 1. Moderate aortic valve regurgitation. Sclerotic aortic valve. 2. Severely enlarged left ventricular ch batool size, moderate generalized hypokinesis (with abnormal septal motion due to conduction ), calculated 3-D volumetric ejection fraction 38 %. 3. Grade 1/3 left ventricular diastolic dysfunction, consistent with low to normal left ventricular filling pressure at rest. 4. Normal right ventricular chamber size , normal systolic function, estimated right ventricular systolic pressure 26 mmHg (systolic bloo d pressure 142 mmHg). 5. Mildly enlarged mid ascending aorta d iameter (diameter 45 mm at mid level). 6. Mildly enlarged sinus of Valsalva alesia meter (diameter 45 mm). 7. No pericardial effusion. 8. Compared to the report of 11/05/2020 no significant change has occurred. Side by side comparison of images performed. Findings Last full echocardiogram performed 05/26. Echocardiogram performed per left ventricular function protocol for aortic regurgitati on assessment. LEFT VENTRICLE: Severely enlarged left ventricular chamber size. Abnormal left ventricular geometry with mild-moderate eccentric left ventricular hypertrophy. Left ventricula r mass index by 2D 124 g/m^2. Calculated 3-D volumetric left ventricular ejection fra ction 38 %. Moderate generalized left ventricular hypokinesis with regional variability. A bnormal ventricular septal motion due to conduction. Grade 1/3 left ventricular diastolic dys function, consistent with low to normal left ventricular filling pressure at rest. RI GHT VENTRICLE: Normal right ventricular chamber size. Normal right ventricular systolic funct ion. Estimated right ventricular systolic pressure 26 mmHg (systolic blood pressure 142 mmHg). ATRIA: Mildly enlarged left atrial size. Left atrial volume index 36 ml/m^2. Normal ri ght atrial size by visual estimate. CARDIAC VALVES: Trileaflet aortic valve. Sclerotic aorti c valve. Moderate aortic valve regurgitation. Aortic regurgitation ERO (PISA) 0.17 cm^2. Aort ic regurgitant volume (PISA) 37 ml. Thickened mitral valve. Trivial mitral valve regurgitatio n. Normal tricuspid valve. Trivial tricuspid valve regurgitation. OTHER ECHO FINDINGS: Norm al inferior vena cava size with normal inspiratory collapse (>50%). Mildly enlarged mid asc ending aorta diameter (diameter 45 mm at mid level). Upper limit of normal for this patient i s 44 mm. Mildly enlarged sinus of Valsalva diameter (diameter 45 mm). Upper limit of normal for this patient is 44 mm. Suboptimal suprasternal notch view. Lipomatous atrial septum. Re dundant atrial septal flap. No atrial level shunt by color flow imaging. No intracardiac mass or thrombus, but the left atrial appendage cannot be visualized adequately with transthoracic echo to exclude thrombus in this location. No pericardial effusion. For the complete report, see the [facility] Documents. Sae Amy Romelia Chavarria M.D., C.Sebastian., M.S. CV ECHO PROCEDU RES documented in this encounter Visit Diagnoses Diagnosis Regurgitation Aortic documented in this encounter Care Teams Cardiology Consultants Relationship Specialty Start Date End Date Elsewhere, Pcp PCP - General Internal Medicine 05/29/19 documented as of this encounter
--- OUTSIDE RECORDS SUMMARY | 2022-01-16 15:54 | XMS_ITS | Encounter Summary ---
:1935 Author Organization [facility] Address [address] [place] [address] Care Team Providers Name Role Phone Elsewhere, Pcp Primary Care Provider Unavailable Reason for Referral Outpatient (Routine) - Closed Specialty Diagnoses / Procedures Referred By Contact Refer red To Contact Diagnoses Flutter Atrial (HCC) Cardiomyopathy Dilated (HCC) Chago Acosta M.D. 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 Do you belong to any clubs or Yes 09/25/2021 organizations such as temple groups, unions, fra[employer]ula or athletic groups, or school groups? How [...] place to sleep or slept in a assisted (including now)? Education Answer Date Recorded What is the highest level of school Bachelor's degree (e.g., BA, AB, 05/16/2019 you have completed or the highest BS) degree you have received? Sex Assigned at Date Recorded Male 08/14/2017 2:01 PM CDT documented as of this encounter Plan of Treatment Not on filedocumented as of this encounter Results ECG 12 Lead (09/29/2021 12:35 PM CDT) P athologist Signature Ventricular Rate 75 BPM MUSE ECG/Min MI Interval 170 ms MUSE QRSD Interval 166 ms MUSE QT Interval 444 ms MUSE QTC Interval 495 ms MUSE P [place] 48 degrees MUSE R [place] 43 degrees MUSE T Wave [place] 240 degrees MUSE Specimen Anatomical Collection Method Collection Time Receive d Time (Source) Location / / Volume Laterality 09/29/2021 12:35 09/29/2021 3:59 PM CDT PM CDT Impressions MUSE - 09/29/2021 12:42 PM CDT Normal sinus rhythm Premature atrial complexes singly and pa ired Left bundle branch block with secondary ST-T abnormalities When compared with ECG of 06-JUL-2021 11 :15, Premature atrial complexes are now prese nt MI interval has decreased T wave inversion more evident in Inferio r leads Revised Report Narrative This result has an attachment that is no t available. Procedure Note Mal Can M.D. - 09/29/2021Formatt ing of this note might be different from the original. IMPRESSION: Normal sinus rhythm Premature atrial complexes singly and pa ired Left bundle branch block with secondary ST-T abnormalities When compared with ECG of 06-JUL-2021 11 :15, Premature atrial complexes are now prese nt MI interval has decreased T wave inversion more evident in Inferio r leads Revised Report Chago Aocsta M.D. ECG ORDERABLES Performing Organization Address City/State/ZIP Code Phon e Number MUSE MUSE NA Thyroid Function [place] (09/29/2021 12:03 PM CDT) athologist Signature TSH, Sensitive 4.0 0.3 - 4.2 09/29/2021 DTL mIU/L 1:21 PM CDT Specimen Anatomical Collection Method Collection Time Receive d Time (Source) Location / / Volume Laterality Blood (Blood, 09/29/2021 12:03 09/29/2021 Venous) PM CDT 12:42 PM CDT Chago Acosta M.D. LAB BLOOD ADD-ON Performing Organization Address City/State/ZIP Code Phon e Number [facility] - [address] [place], [place] [address] [facility] [place] [address] [facility] 200 [facility] (ABNORMAL) CBC with Differential, Blood (09/29/2021 12:03 [...] Organization Address City/State/ZIP Code Phon e Number [facility] - [address] [place], [place] [address] [facility] [address] [facility] 200 [facility] (ABNORMAL) Basic Metabolic Panel (09/29/2021 12:03 PM [...] 09/29/2021 DTL [place]/ mL/min/BSA 1:21 PM CDT [place] Comment: ----ADDITIONAL INFORMATION---- Estimated GFR calculated using [...] Organization Address City/State/ZIP Code Phon e Number [facility] - [address] [place], [place] [address] [place] [address] [facility] [address] documented in this encounter Visit Diagnoses Diagnosis Flutter Atrial (HCC) - Primary Cardiomyopathy Dilated (HCC) documented in this encounter Care Teams Radiologic Therapist Relationship Specialty Start Date End Date Elsewhere, Pcp PCP - General Internal Medicine 05/29/19 documented as of this encounter
--- OUTSIDE RECORDS SUMMARY | 2022-01-16 15:54 | XMS_ITS | Encounter Summary ---
:1935 Author Organization [facility] Address [address] [place] [address] Care Team Providers Name Role Phone Elsewhere, Pcp Primary Care Provider Unavailable Encounter Details Date Type Department Care Team Description 12/16/2020 Documentation Department of Cardiovascular BarreraShakira Jr., Medicine in [facility] [address] [place] [address] [place] [phone] (Wo rk) Social History Tobacco Use Types Packs/Day Years [...] or relatives? How often do you attend restoration or More than 4 times per year 09/25/2021 hoahaoism services? Do you belong to any clubs or Yes 09/25/2021 organizations such as restoration groups, unions, fraternal or athletic groups, or [...] PM CDT documented as of this encounter Progress Notes Abisai Barrera Jr., M.D. - 12/16/2020 10:13 AM CDT Please see previous note. documented in this encounter Plan of Treatment Not on filedocumented as of this encounter Visit Diagnoses Not on filedocumented in this encounter Care Teams Can Reconditioner Relationship Specialty Start Date End Date Elsewhere, Pcp PCP - General Internal Medicine 05/29/19 documented as of this encounter
--- OUTSIDE RECORDS SUMMARY | 2022-01-16 15:54 | XMS_ITS | Encounter Summary ---
:1935 Author Organization [facility] Address [address] [place] [id number] Care Team Providers Name Role Phone Elsewhere, Pcp Primary Care Provider Unavailable Reason for Visit Outpatient (Routine) - Closed Specialty Diagnoses / Referred By Contact Referred To Contact Procedures Cardiovascular Diseases / Diagnoses Cardiomyopathy Dilated (HCC) Bundle Branch Block [facility] Cardiovascular Disease Sae Reyes M.D., CZahida., M.S. [address] [place] [phone] Referral ID Status Reason Start Date Expiration Date Visits Requ ested Visits Authorized [id number] Closed 07/06/2021 07/06/2022 1 1 Encounter Details Date Type Department Care Team Description 09/29/2021 Comprehensive Visit Department of Dave, Flutter Atrial (HCC) (Primary Dx); Cardiovascular Chago Cortes, Cardiomyopath y Dilated (HCC); Medicine in M.D. Bundle Branch Block Left [place], [place] [address] [facility] [address] [place] [phone] Social History Tobacco Use Types Packs/Day Years [...] or relatives? How often do you attend religious or More than 4 times per year 09/25/2021 evangelical services? Do you belong to any clubs or Yes 09/25/2021 organizations such as religious groups, unions, fraternal or athletic groups, or [...] PM CDT documented as of this encounter Last Filed Vital Signs Vital Sign Reading Time Taken Comments Blood Pressure 125/66 09/29/2021 12:59 PM CDT Pulse 79 09/29/2021 12:59 PM CDT Temperature - - Respiratory Rate - - Oxygen Saturation - - Inhaled Oxygen Concentration - - Weight 84.2 kg (185 lb 10 oz) 09/29/2021 12:59 PM CDT Height 167.7 cm (5' 6.02) 09/29/2021 12:59 PM CDT Body Mass Index 29.94 09/29/2021 12:59 PM CDT documented in this encounter Consult Notes Chago Acosta M.D. - 09/29/2021 1:00 PM CDT OUTPATIENT ELECTROPHYSIOLOGY CONSULT SUBJECTIVE CHIEF COMPLAINT / REASON FOR VISIT ? SALES REPRESENTATIVE RURAL POWER implant candidacy. HISTORY OF PRESENT ILLNESS Mr. Franz is an 86 years old man referred from Dr. Da Silva for consideration of SALES REPRESENTATIVE RURAL POWER-P to complement his CHF treatment as GDMT has been maximized and there is very little BP left to work with. He has DCM with CKD III, moderate AR and LBBB. METO and Entresto have been given. TTE in November was 38% and is now 45% on echo; it has been suggested another modality could be used to assess EF. He is NYHA III. The ECG shows LBBB with QRSD 166 ms with ME 170 ms. He is to have a Holter in October at [facility]. Patient Active Problem List Diagnosis Meningioma Brain (HCC) Gastroesophageal Reflux Disease NOS Dysplasia Esophagus Dysthymic disorder Malignant Neoplasm Of Esophagus (HCC) Apnea Sleep Obstructive Other Secondary Parkinsonism (HCC) PreDiabetes Malignant Neoplasm Of Bladder (HCC) Anemia Benign Neoplasm Of Meninges Unspecified (HCC) Dysfunction Erectile History Of Falling Hyperlipidemia Mixed Hyperreflexia Hypothyroidism Nodule Prostate Polyp Colon Pain Knee Right Restless Leg Syndrome Rhinitis Allergic Varicose Vein Lower Extremity Flutter Atrial (HCC) Cardiomyopathy Dilated (HCC) Acute Systolic (Congestive) Heart Failure (HCC) Past Medical History: Diagnosis Date Anemia pt states that iron levels normally low Anxiety Generalized Disorder 2010 Apnea Sleep Obstructive Vicente's Esophagus BenignProstatic Hyperplasia Localized 5 yrs. ago Cancer In Situ Bladder Cataract 5 yrs. ago Constipation Depressive Disorder 2010 Diarrhea Dysfunction Thyroid Gastroesophageal Reflux Disease NOS Heart Failure NOS 05/16/2019 Hyperlipidemia Hypothyroidism Malignant Neoplasm Of Colon Adenocarcinoma (HCC) Malignant Neoplasm Of Esophagus (HCC) Meningioma Brain (HCC) Osteopenia 2014 Other Specified Health Status 2013 Parkinsonism HC 2014 Meningioma HC Parkinson Disease (HCC) Parkinson Disease (HCC) Polyp Colon Shortness Of Breath Sleep Apnea ST Elevation Myocardial Infarction Of Unspecified Site (HCC) 05/16/2019 Ulcer Peptic Past Surgical History: Procedure Laterality Date APPENDECTOMY CATARACT EXTRACTION CATH ANGIOGRAM N/A 05/28/2019 Procedure: Coronary Angiography; Surgeon: Rosalba Crowe M.D.; Location: [facility] CATH ANGIOGRAM N/A 05/28/2019 Procedure: Left Heart Catheterization; Surgeon: Rosalba Crowe M.D.; Location: [facility] CATHETERIZATION BLADDER N/A 04/12/2018 Procedure: CATHETERIZATION BLADDER; Surgeon: Virgil Francisco M.D.; Location: [place] [address] OR CYSTOSCOPY WITH TRANSURETHRAL RESECTION LESION BLADDER N/A 04/12/2018 Procedure: CYSTOSCOPY, TRANSURETHRAL RESECTION LESION BLADDER// PARALYSIS, PYRIDIUM.; Surgeon: Virgil Francisco M.D.; Location: [place] [address] OR SINUS SURGERY 1996 TONSILLECTOMY TONSILLECTOMY Allergies Allergen Reactions Codeine Other (see comments) and Shortness of breath vaso-vagal episode Fentanyl Nausea Only and Other (see comments) Slight nausea after eye surgery and mental status changes. Midazolam Other (see comments) Memory loss Current Medications: acetaminophen (TYLENOL) 500 mg tablet, Take 1,000 mg by mouth as needed. apixaban (ELIQUIS) 5 mg tablet, Take 1 tablet (5 mg total) by mouth 2 (two) times a day. (Patient taking differently: Take 2.5 mg by mouth 2 (two) times a day.) Carafate 100 mg/mL suspension, TAKE 2 TEASPOONSFUL (10 ML) THREE TIMES A DAY AFTER MEALS (Patient taking differently: as needed.) cyanocobalamin (VITAMIN B12) 1,000 mcg tablet, Take 1,000 mcg by mouth daily. diclofenac sodium (VOLTAREN) 1 % gel, APPLY 2 GRAMS TOPICALLY TO THE AFFECTED AREA FOUR TIMES DAILY Entresto 97-103 mg per tablet, TAKE 1 TABLET TWICE A DAY famotidine (PEPCID) 40 mg tablet, Take 40 mg by mouth daily. fluticasone (FLONASE) 50 mcg/actuation nasal spray, Administer 1 spray into each nostril daily as needed for rhinitis. levothyroxine (SYNTHROID, LEVOTHROID) 100 mcg tablet, Take 1 tablet (100 mcg total) by mouth every morning. loperamide (IMODIUM A-D) 2 mg capsule, Take 4 mg by mouth. Take 4 mg by mouth with 1st loose stool,then 2nd with each subsequent loose stool. Max of 16 mg in 24 hours. Take every other day. loratadine (CLARITIN) 10 mg tablet, Take 1 tablet by mouth daily as needed for allergies. melatonin 3 mg tablet, Take 3 mg by mouth at bedtime. metoprolol succinate (TOPROL-XL) 50 mg 24 hr tablet, Take 1 tablet (50 mg total) by mouth 2 (two) times a day. Do not crush or chew. miscellaneous medical supply [facility], CPAP machine for home use at pressure: 4-12 cm/H2O, Heated humidifier x 1, Humidifier chamber x 1, nasal pillow mask with pillow cushion x 1, Heated tubing x 1, Headgear x 1, Filters: Disposable x 1pk & Reusable x 1pk, Length of Need: 99 months, Frequency of use: Daily pantoprazole (PROTONIX) 40 mg EC tablet, Take 1 tablet by mouth 2 (two) times a day. One tablet 30 minutes prior to morning and evening meals peg 400-propylene glycol (SYSTANE) 0.4-0.3 % ophthalmic solution, Administer 1 drop into both eyes 4 (four) times a day as needed. simvastatin (ZOCOR) 20 mg tablet, Take 1 tablet by mouth daily. tamsulosin (FLOMAX) 0.4 mg 24 hr capsule, Take 0.4 mg by mouth daily. torsemide (DEMADEX) 10 mg tablet, Take 1 tablet (10 mg total) by mouth as needed (take a dose if you have gain 3 lbs /24 hours or 5 lbs /1 week). venlafaxine XR (EFFEXOR-XR) 150 mg 24 hr capsule, Take 150 mg by mouth daily with breakfast. vit C/E/Zn/coppr/lutein/zeaxan (PRESERVISION AREDS 2 ORAL), Take 1 tablet by mouth 2 (two) times a day. OBJECTIVE VITALS BP 125/66 (BP Location: Left arm, Patient Position: Sitting, Cuff Size: Regular) Pulse 79 Ht 167.7 cm Wt 84.2 kg BMI 29.94 kg/m?? PHYSICAL EXAMINATION General: NAD. DIAGNOSTIC REVIEW All labs and diagnostic studies were reviewed. Hb 10.7; WBC 6,900; PLTs 291 K; K 4.7; Creat 1.48. BNP 878. ASSESSMENT / PLAN #1 Cardiomyopathy Dilated (HCC) #2 Bundle Branch Block Left #3 Flutter Atrial (HCC) The patient would be a candidate for SALES REPRESENTATIVE RURAL POWER-P; however with the EF in the 40s after Entresto he may notmeet criteria. He will have his Holter in October. I would suggest another EF assessment, likely by MUGA and if < 36% then proceed. I will let Dr. Romelia Chavarria know my thoughts. Discussed. Questions answered. Cahgo Acosta M.D. documented in this encounter Plan of Treatment Not on filedocumented as of this encounter Visit Diagnoses Diagnosis Flutter Atrial (HCC) - Primary Cardiomyopathy Dilated (HCC) Bundle Branch Block Left documented in this encounter Care Teams Train Dispatcher Relationship Specialty Start Date End Date Elsewhere, Pcp PCP - General Internal Medicine 05/29/19 documented as of this encounter
--- OUTSIDE RECORDS SUMMARY | 2022-01-16 15:54 | XMS_ITS | Encounter Summary ---
:1935 Author Organization [facility] Address [address] [place] [address] Care Team Providers Name Role Phone Elsewhere, Pcp Primary Care Provider Unavailable Reason for Visit Reason Comments Triage Internal CV / Device consult Encounter Details Date Type Department Care Team Description 07/06/2021 Clinical Department of Supervisor Vacuum Metalizing Triage (Online Media Buyer al CV Communication Cardiovascular , Bryan Mondragon / Device ruddy magaña) Medicine in [place], [place] [address] [place] [phone] Social History Tobacco Use Types Packs/Day Years [...] or relatives? How often do you attend jain or More than 4 times per year 09/25/2021 faith services? Do you belong to any clubs or Yes 09/25/2021 organizations such as jain groups, unions, fraternal or athletic groups, or [...] place to sleep or slept in a intermediate (including now)? Education Answer Date Recorded What is the highest level of school Bachelor's degree (e.g., BA, AB, 05/16/2019 you have completed or the highest BS) degree you have received? Sex Assigned at Date Recorded Male 08/14/2017 2:01 PM CDT documented as of this encounter Miscellaneous Notes Telephone Encounter - Mary Carmen Stewart - 07/07/2021 10:47 AM CDT Scheduled Telephone Encounter - Tiffanie Mosley R.N. - 07/07/2021 7:38 AM CDT Images from the original note were not included. [facility] Heart Rhythm Services' Nurse Chart Review: REFERRING PROVIDER: Dr. Romelia Chavarria INDICATION: Device consult/ DATA MANAGEMENT ASSOCIATE for left bundle SYMPTOMS & DURATION: Consult from Dr. Romelia Chavarria 07/06/21: intolerant of spironolactone and hemodynamics/symptoms preclude the use of SGLT2 inhibitors. He endorses NYHA class III symptoms. Denies any orthopnea, PND, lower extremity edema. He is on as needed torsemide. BRIEF HISTORY: H&P Dr. Barrera 12/16/20 The most recent ECG is from November 04 of this year. I interpreted to show sinus rhythm at 67 beats per minute a slight sinus arrhythmia, first-degree AV delay, left bundle branch block, and a QTC of 500 milliseconds I reviewed the report of the transthoracic echocardiogram of December 09, 2020. It describes moderate aortic regurgitation and a sclerotic aortic valve with severe left ventricular enlargement and moderate generalized hypokinesis with abnormal septal motion due to conduction (left bundle branch block). The ejection fraction is 38% (this is in the presence of some aortic insufficiency). There is onlygrade 1/3 diastolic dysfunction consistent with normal filling pressure. Right ventricular chamber size is normal and the right ventricular pressure is normal at 26 mm of mercury. There is mild enlargement of the mid ascending aorta with a 45 mm diameter and there is mild enlargement of the sinus of Valsalva with a 45 mm diameter. There is no effusion. There is a lipomatous atrial septum and redundant atrial septal flap but no interatrial shunt. There is no intracardiac mass or thrombus. When compared with the study of November 05, 2020 from an outside echocardiogram there has been no significant change. The left ventricular diameters are 49 mm in systole and 61 mm in diastole CARDIAC TESTING COMPLETED: ECG 07/07/21 TTE 12/09/20 CXR- 07/06/21 Labs: 07/06/21 HRS TESTING NEEDED: Repeat TTE, ECG, labs Telephone Encounter - Anyi Gamez - 07/06/2021 4:06 PM CDT Other ?? Goal or summary: Device Consult ?? Dr. Romelia Chavarria order documented in this encounter Plan of Treatment Not on filedocumented as of this encounter Visit Diagnoses Not on filedocumented in this encounter Care Teams Tape Editor Relationship Specialty Start Date End Date Elsewhere, Pcp PCP - General Internal Medicine 05/29/19 documented as of this encounter
--- OUTSIDE RECORDS SUMMARY | 2022-01-16 15:54 | XMS_ITS | Encounter Summary ---
:1935 Author Organization [facility] Address [address] [place] [id number] Care Team Providers Name Role Phone Elsewhere, Pcp Primary Care Provider Unavailable Reason for Referral Outpatient (Routine) - Closed Specialty Diagnoses / Referred By Contact Referred To Contact Procedures Cardiovascular Diseases / Diagnoses Regurgitation Aortic Romelia Chavarria [facility] Cardiovascular Disease Sae Reyes M.D., Kam, M.S. [address] [place] [phone] Referral ID Status Reason Start Date Expiration Date Visits Requ ested Visits Authorized [id number] Closed 12/02/2020 12/02/2021 1 1 utpatient (Routine) - Closed Specialty Diagnoses / Procedures Referred By Contact Refer red To Contact Diagnoses Regurgitation Aortic Sae Espinal [facility] Procedures Echo Transthoracic (TTE) Bryan, BarbaraM., M.S. [address] [place] [phone] Referral ID Status Reason Start Date Expiration Date Visits Requ ested Visits Authorized [id number] Closed 12/02/2020 12/02/2021 1 1 Encounter Details Date Type Department Care Team Description 12/02/2020 Orders Only Department of Abou Regurgitation Aortic Cardiovascular Medicine Aura (Amira Duff) in [facility] lizett Reyes M.D., [address] [facility] [place] [phone] [facility] [phone] [place] [phone] Social History Tobacco Use Types Packs/Day Years [...] or relatives? How often do you attend cheondoism or More than 4 times per year 09/25/2021 adventist services? Do you belong to any clubs or Yes 09/25/2021 organizations such as cheondoism groups, unions, fraternal or athletic groups, or [...] place to sleep or slept in a halfway (including now)? Education Answer Date Recorded What is the highest level of school Bachelor's degree (e.g., BA, AB, 05/16/2019 you have completed or the highest BS) degree you have received? Sex Assigned at Date Recorded Male 08/14/2017 2:01 PM CDT documented as of this encounter Plan of Treatment Scheduled Referrals Name Type Priority Associated Diagnoses [facility] Disease Outpatient Routine Regurgitation Aort ic Expected: - Valvular heart Referral 12/02/2020 disease (VHD) consult (Appro ximate), (clinic) Expires: 12/03/2023 documented as of this encounter Results (TTE) 2D ECHO DOPPLER COLOR (12/09/2020 12:33 PM CDT) [facility] Method Time Signature Ejection Fraction 38 [...] effusion. For the complete report, see the [employer] Documents. Narrative 12/09/2020 12:25 PM CDT For the complete report, see the [employer] Documents. Final Impressions 1. Moderate aortic valve [...] original. For the complete report, see the [employer] Documents. Final Impressions 1. Moderate aortic valve [...] report, see the [employer] Documents. Sae Chavarria M.D., C.M., M.S. CV ECHO PROCEDU RES documented in this encounter Visit Diagnoses Diagnosis Regurgitation Aortic - Primary Regurgitation Aortic documented in this encounter Care Teams Rotary Soil Stabilizer Relationship Specialty Start Date End Date Elsewhere, Pcp PCP - General Internal Medicine 05/29/19 documented as of this encounter
--- OUTSIDE RECORDS SUMMARY | 2022-01-16 15:54 | XMS_ITS | Encounter Summary ---
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 How often do you attend buddhist or More than 4 times per year 09/25/2021 worship services? Do you belong to any clubs or Yes 09/25/2021 organizations such as buddhist groups, unions, fraternal or athletic groups, or [...] on filedocumented as of this encounter Results DX Chest AP or PA and Lateral 2 Views (12/09/2020 9:33 AM CDT) Anatomical Region Laterality Modality Chest, Thoracic RST LOS, Thoracic ARZ LOS, Thoracic N/A Digital Radiography FLA LOS Specimen (Source) Anatomical Collection Method Collection Time Re ceived Time Location / / Volume Laterality 12/09/2020 10:44 AM CDT Impressions 12/09/2020 10:49 AM CDT Comparison with outside chest radiograph from 05/26/2019. Tiny pleural effusions have resolved. Similar gas-filled loop of bowel beneath the left hemidiaphragm with mild elevation o f the left hemidiaphragm. Mild atelectasis in the adjacent left lower l mando. Improved atelectasis in the right lung base. Similar borderline enlarged c ardiac silhouette. Atherosclerotic aortic calcification. Patulous esophagus . Thoracic curvature. Narrative 12/09/2020 10:49 AM CDT EXAM: ??DX CHEST AP OR PA AND LATERAL 2 VIEWS Procedure Note Laura Mackenzie M.D. - 12/09/2020Format ting of this note might be different from the original. EXAM: DX CHEST AP OR PA AND LATERAL 2 EWS IMPRESSION: Comparison with outside chest radiograph from 05/26/2019. Tiny pleural effusions have resolved. Similar gas-filled loop of bowel beneath the left hemidiaphragm with mild elevation o f the left hemidiaphragm. Mild atelectasis in the adjacent left lower l mando. Improved atelectasis in the right lung base. Similar borderline enlarged c ardiac silhouette. Atherosclerotic aortic calcification. Patulous esophagus . Thoracic curvature. Abisai Barrera Jr., M.D. IMG DIAGNOSTIC IMAGING PROCE DURES (ABNORMAL) NT-Pro B-Type Natriuretic Peptide (BNP) (12/09/2020 8:56 AM CDT) athologist Signature NT-Pro BNP 591 (H) <=138 pg/mL 12/09/2020 DTL 10:09 AM CDT Comment: NT-proBNP values less than 300 pg/mL hav e a 99% negative predictive value for excluding acute congestive heart dustin lure. A cutoff of 1200 pg/mL for patients with an eGFR<60 yields a diagno stic sensitivity and specificity of 89% and 72% for acute congestive heart f ailure. ??A diagnostic NT-proBNP cutoff of 1800 pg/mL has been suggested in adults over 75 years of age in the absence of renal failure. Specimen Anatomical Collection Method Collection Time Receive d Time (Source) Location / / Volume Laterality Blood (Blood, 12/09/2020 8:56 AM 12/10/19 9:32 Venous) CDT AM CDT Abisai Barrera Jr., M.D. LAB BLOOD ADD-ON Performing Organization Address City/State/ZIP Code Phon e Number [facility] - [address] [place] [address] [address] [facility] [place] [address] Laboratories-[facility] 200 [facility] Lipid Panel (12/09/2020 8:56 AM CDT) athologist Signature Cholesterol, 187 mg/dL 12/09/2020 DTL Total 10:28 AM CDT Comment: ----REFERENCE VALUE---- Desirable: < 200 Borderline high: 200 - 239 High: > or = 240 Triglycerides 104 mg/dL 12/09/2020 10:28 AM CDT DT L Comment: ----REFERENCE VALUE---- Normal: <150 Borderline high: 150-199 High: 200-499 Very high: > or =500 Cholesterol, HDL, S 61 >=40 mg/dL 12/09/2020 10:28 AM CDT DTL Calculated LDL 105 mg/dL 12/09/2020 10:28 AM CDT D TL Comment: ----REFERENCE VALUE---- Desirable: <100 mg/dL Above Desirable: 100-129 mg/dL Borderline High: 130-159 mg/dL High: 160-189 mg/dL Very High: >=190 mg/dL Cholesterol, Non-HDL, Calculated 126 mg/dL 021 10:28 AM CDT DTL Comment: ----REFERENCE VALUE---- Desirable: <130 Above Desirable: 130-159 Borderline high: 160-189 High: 190-219 Very high: > or =220 Specimen Anatomical Collection Method Collection Time Receive d Time (Source) Location / / Volume Laterality Blood (Blood, 12/09/2020 8:56 AM 12/10/19 21 9:37 Venous) CDT AM CDT Abisai Barrera Jr., M.D. LAB BLOOD ADD-ON Performing Organization Address City/State/ZIP Code Phon e Number [facility] - [address] [place], [place] [address] [facility] [place] [address] Laboratories-[facility] 200 [facility] (ABNORMAL) CBC with Differential, Blood (12/09/2020 8:56 AM CDT) [facility] gist Method Time Signature Hemoglobin 10.7 (L) 13.2 - 12/09/2020 DTL 16.6 g/dL 9:48 AM CDT Hematocrit 34.3 (L) 38.3 - 12/09/2020 DTL 48.6 % 9:48 AM CDT Erythrocytes 3.78 (L) 4.35 - 12/09/2020 DTL 5.65 9:48 AM CDT x10(12)/L MCV 90.7 78.2 - 12/09/2020 DTL 97.9 fL 9:48 AM CDT RBC Distrib Width 13.6 11.8 - 12/09/2020 DTL 14.5 % 9:48 AM CDT Platelet Count 222 135 - 317 12/09/2020 DTL x10(9)/L 9:48 AM CDT Leukocytes 6.5 3.4 - 9.6 12/09/2020 DTL x10(9)/L 9:48 AM CDT Neutrophils 3.95 1.56 - 12/09/2020 DTL 6.45 9:48 AM CDT x10(9)/L Lymphocytes 1.51 0.95 - 12/09/2020 DTL 3.07 9:48 AM CDT x10(9)/L Monocytes 0.76 0.26 - 12/09/2020 DTL 0.81 9:48 AM CDT x10(9)/L Eosinophils 0.20 0.03 - 12/09/2020 DTL 0.48 9:48 AM CDT x10(9)/L Basophils 0.03 0.01 - 12/09/2020 DTL 0.08 9:48 AM CDT x10(9)/L Specimen Anatomical Collection Method Collection Time Receive d Time (Source) Location / / Volume Laterality Blood (Blood, 12/09/2020 8:56 AM 12/10/19 21 9:28 Venous) CDT AM CDT Abisai Barrera Jr., M.D. LAB BLOOD ADD-ON Performing Organization Address City/[facility] Phon e Number [facility] - [address] (ABNORMAL) S-TSH (Thyroid-Stimulating Hormone - Sensitive) (12/09/2020 8:56 AM CDT) P athologist Signature TSH, Sensitive 5.7 (H) 0.3 - 4.2 12/09/2020 DTL mIU/L 10:28 AM CDT Specimen Anatomical Collection Method Collection Time Receive d Time (Source) Location / / Volume Laterality Blood (Blood, 12/09/2020 8:56 AM 12/10/19 21 9:37 Venous) CDT AM CDT Abisai Barrera Jr., M.D. LAB BLOOD ADD-ON Performing Organization Address [facility] Phon e Number [facility] - [address] (ABNORMAL) Prothrombin Time (PT) (12/09/2020 8:56 AM CDT) Patholo gist Method Time Signature Prothrombin 13.8 (H) 9.4 - 12.5 12/09/2020 DTL Time, P sec 9:55 AM CDT INR 1.2 0.9 - 1.1 12/09/2020 DTL 9:55 AM CDT Comment: ----ADDITIONAL INFORMATION---- Standard intensity warfarin therapeutic range: 2.0 to 3.0 ?? High intensity warfarin therapeutic rang e: 2.5 to 3.5 Specimen Anatomical Collection Method Collection Time Receive d Time (Source) Location / / Volume Laterality Blood (Blood, 12/09/2020 8:56 AM 12/10/19 21 9:28 Venous) CDT AM CDT Abisai Barrera Jr., M.D. LAB BLOOD ADD-ON Performing Organization Address City/[facility] Phon e Number [facility] - [address] [place] [address] Sodium (12/09/2020 8:56 AM CDT) P athologist Signature Sodium, S 141 135 - 145 12/09/2020 DTL mmol/L 10:09 AM CDT Specimen Anatomical Collection Method Collection Time Receive d Time (Source) Location / / Volume Laterality Blood (Blood, 12/09/2020 8:56 AM 12/10/19 21 9:32 Venous) CDT AM CDT Abisai Barrera Jr., M.D. LAB BLOOD ADD-ON Performing Organization Address City/[facility] Phon e Number [facility] - [address] [place], [place] [id number] [place] [address] Potassium (12/09/2020 8:56 AM CDT) P athologist Signature Potassium, S 4.2 3.6 - 5.2 12/09/2020 DTL mmol/L 10:09 AM CDT Specimen Anatomical Collection Method Collection Time Receive d Time (Source) Location / / Volume Laterality Blood (Blood, 12/09/2020 8:56 AM 12/10/19 9:32 Venous) CDT AM CDT Abisai Barrera Jr., M.D. LAB BLOOD ADD-ON Performing Organization Address City/[facility] Phon e Number [facility] - [address] [place], [place] [address] [facility] [place] [address] Laboratories-[address] (ABNORMAL) Glucose, Fasting (12/09/2020 8:56 AM CDT) P athologist Signature Glucose, P 111 (H) 70 - 100 12/09/2020 DTL mg/dL 9:43 AM CDT Last Intake 15 hr 12/09/2020 DTL 9:27 AM CDT Specimen Anatomical Collection Method Collection Time Receive d Time (Source) Location / / Volume Laterality Blood (Blood, 12/09/2020 8:56 AM 12/10/19 9:27 Venous) CDT AM CDT Abisai Barrera Jr., M.D. LAB BLOOD NON ADD-ON Performing Organization Address City/[facility] Code Phon e Number [facility] - [address] [place] [address] Laboratories-[address] (ABNORMAL) Creatinine with Estimated GFR (12/09/2020 8:56 AM CDT) Analysis Performed At Patho logist Time Signature Creatinine 1.74 (H) 0.74 - 12/09/2020 DTL 1.35 mg/dL 10:28 AM CDT eGFR-Non 35 (L) >=60 12/09/2020 DTL Black/ mL/min/BSA 10:28 AM CDT Burmese Comment: ----ADDITIONAL INFORMATION---- Estimated GFR calculated using the 2009 CKD_EPI creatinine equation. eGFR-Black/ 40 (L) >=60 mL/min/BSA 2020 10:28 AM CDT DTL Comment: ----ADDITIONAL INFORMATION---- Estimated GFR calculated using the 2009 CKD_EPI creatinine equation. Specimen Anatomical Collection Method Collection Time Receive d Time (Source) Location / / Volume Laterality Blood (Blood, 12/09/2020 8:56 AM 12/10/19 9:37 Venous) CDT AM CDT Abisai Barrera Jr., M.D. LAB BLOOD ADD-ON Performing Organization Address City/[facility]/ZIP Code Phon e Number [facility] - [address] Albumin (12/09/2020 8:56 AM CDT) P athologist Signature Albumin, S 4.3 3.5 - 5.0 12/09/2020 DTL g/dL 10:09 AM CDT Specimen Anatomical Collection Method Collection Time Receive d Time (Source) Location / / Volume Laterality Blood (Blood, 12/09/2020 8:56 AM 12/10/19 9:32 Venous) CDT AM CDT Abisai Barrera Jr., M.D. LAB BLOOD ADD-ON Performing Organization Address [facility] Phon e Number [facility] - [address] documented in this encounter Visit Diagnoses Diagnosis Regurgitation Mitral - Primary Regurgitation Mitral documented in this encounter Care Teams Government Affairs Specialist Relationship Specialty Start Date End Date Elsewhere, Pcp PCP - General Internal Medicine 05/29/19 documented as of this encounter
--- OUTSIDE RECORDS SUMMARY | 2022-01-16 15:54 | XMS_ITS | Encounter Summary ---
:1935 Author Organization [facility] Address [address] [place] [address] Care Team Providers Name Role Phone Elsewhere, Pcp Primary Care Provider Unavailable Encounter Details Date Type Department Care Team Description 07/06/2021 Hospital Encounter Department of Abou Sindy chavezthy Dilated Radiology, [place], in Sae Reyes M.D., Kam Ramirez, M.S. [place] [address] [facility] [address] [place] [phone] Social History Tobacco Use Types Packs/Day Years [...] or relatives? How often do you attend sabianism or More than 4 times per year 09/25/2021 nondenominational services? Do you belong to any clubs or Yes 09/25/2021 organizations such as sabianism groups, unions, fraternal or athletic groups, or [...] place to sleep or slept in a detention (including now)? Education Answer Date Recorded What [...] 0 B12) 1,000 mcg tablet mouth daily. Entresto [...] (ZOCOR) 20 Take 1 tablet by 0 04/09/ 014 mg tablet mouth daily. tamsulosin (FLOMAX) [...] Name Priority Date/Time Associated Diagnosis Comme nts DX CHEST AP OR RAD - Routine 07/06/2021 1:08 Cardiomyopathy Results for PA AND LATERAL 2 (most inpatients PM CDT Dilated (HCC) this p rocedure VIEWS and all are in the outpatients) results section. documented in this encounter Results DX Chest AP or PA and Lateral 2 Views (07/06/2021 1:08 PM CDT) Anatomical Region Laterality Modality Chest, Thoracic RST LOS, Thoracic ARZ LOS, Thoracic N/A Digital Radiography FLA LOS Specimen (Source) Anatomical Collection Method Collection Time Re ceived Time Location / / Volume Laterality 07/06/2021 1:24 PM CDT Impressions 07/06/2021 1:26 PM CDT Indentation left hemidiaphragm with gaseous distention of colon and stomach. This is increased slightly from prior study of 0 12/09/2020. Mild basilar atelectasis or scarring. Borderline enlarged cardiac silhouette. Calcified a aamir. Degenerative changes thoracic spine. Narrative 07/06/2021 1:26 PM CDT EXAM: ??DX CHEST AP OR PA AND LATERAL 2 VIEWS Procedure Note Virgil Brown M.D., Ph.D. - 07/06/2021 EXAM: DX CHEST AP OR PA AND LATERAL 2 EWS IMPRESSION: Indentation left hemidiaphragm with gase ous distention of colon and stomach. This is increased slightly from prior study of 0 12/09/2020. Mild basilar atelectasis or scarring. Borderline enlarged cardiac silhouette. Calcified a aamir. Degenerative changes thoracic spine. Sae Chavarria M.D., C.M., M.S. IMG DIAGNOSTIC IMAGING PROCEDURES documented in this encounter Visit Diagnoses Diagnosis Cardiomyopathy Dilated (HCC) documented in this encounter Care Teams Yeast Stacker Relationship Specialty Start Date End Date Elsewhere, Pcp PCP - General Internal Medicine 05/29/19 documented as of this encounter
--- OUTSIDE RECORDS SUMMARY | 2022-01-16 15:54 | XMS_ITS | Encounter Summary ---
:1935 Author Organization [facility] Address [address] [place] [address] Care Team Providers Name Role Phone Elsewhere, Pcp Primary Care Provider Unavailable Encounter Details Date Type Department Care Team Description 07/06/2021 Hospital Encounter Department of Abou Sindy opathy Dilated Laboratory Medicine [place], ([facility]) and Pathology, Sae Reyes M.D., [place], in [place], [facility], [address] [place], [place] [address] [place] [phone] [place], [place] [phone] (Work) [phone] Social History Tobacco Use Types Packs/Day Years [...] More than 4 times per year 09/25/2021 episcopal services? Do you belong to any clubs [...] place to sleep or slept in a senior living (including now)? Education Answer Date Recorded What [...] Name Priority Date/Time Associated Diagnosis Comme nts NT-PRO B-TYPE Routine 07/06/2021 9:35 Cardiomyopathy Results f or this NATRIURETIC PEPTIDE AM CDT Dilated (HCC) procedu re are in (BNP), S the results section. CBC WITH DIFFERENTIAL, Routine 07/06/2021 9:35 Cardiomyopathy Results for this B AM CDT Dilated (HCC) procedure are in the results section. BUN (BLOOD UREA Routine 07/06/2021 9:35 Cardiomyopathy Results for this NITROGEN), S/P AM CDT Dilated (HCC) procedure ar e in the results section. ASPARTATE Routine 07/06/2021 9:35 Cardiomyopathy Results fo r this AMINOTRANSFERASE (AST), AM CDT Dilated (HCC) pro cedure are in S/P the results section. SODIUM, S/P Routine 07/06/2021 9:35 Cardiomyopathy Results fo r this AM CDT Dilated (HCC) procedure are in the results section. POTASSIUM, S/P Routine 07/06/2021 9:35 Cardiomyopathy Results for this AM CDT Dilated (HCC) procedure are in the results section. GLUCOSE, FASTING, S/P Routine 07/06/2021 9:35 Cardiomyopathy R esults for this AM CDT Dilated (HCC) procedure are in the results section. BICARBONATE, B/S/P Routine 07/06/2021 9:35 Cardiomyopathy Resu lts for this AM CDT Dilated (HCC) procedure are in the results section. LIPID PANEL, S Routine 07/06/2021 9:34 Cardiomyopathy Results for this AM CDT Dilated (HCC) procedure are in the results section. THYROID-STIMULATING Routine 07/06/2021 9:34 Cardiomyopathy Res ults for this HORMONE-SENSITIVE AM CDT Dilated (HCC) procedure are in (S-TSH) the results section. CREATININE WITH EGFR, Routine 07/06/2021 9:34 Cardiomyopathy R esults for this S/P AM CDT Dilated (HCC) procedure are in the results section. documented in this encounter Results (ABNORMAL) NT-Pro B-Type Natriuretic Peptide (BNP) (07/06/2021 9:35 AM CDT) P athologist Signature NT-Pro BNP 878 (H) <=138 pg/mL 07/06/2021 DTL 10:49 AM CDT Comment: NT-proBNP values less than [...] Location / / Volume Laterality Blood (Blood, 07/06/2021 9:35 AM 07/07/19 22 Venous) CDT 10:17 AM CDT Sae Chavarria M.D., [place], M.S. LAB BLOOD ADD-O N Performing Organization Address City/[facility] Phon e Number [facility] 200 [place], [place] [address] [place] [id number] [place] [address] Potassium (07/06/2021 9:35 AM CDT) P athologist Signature Potassium, S 4.8 3.6 - 5.2 07/06/2021 DTL mmol/L 10:49 AM CDT Specimen Anatomical Collection Method Collection Time Receive d Time (Source) Location / / Volume Laterality Blood (Blood, 07/06/2021 9:35 AM 07/07/19 22 Venous) CDT 10:17 AM CDT Sae Chavarria M.D., BarbaraM., M.S. LAB BLOOD ADD-O N Performing Organization Address [facility] Phon e Number [facility] 200 [place], [place] [address] [place] [phone] Bicarbonate (07/06/2021 9:35 AM CDT) P athologist Signature Bicarbonate, S 26 22 - 29 07/06/2021 DTL mmol/L 10:49 AM CDT Specimen Anatomical Collection Method Collection Time Receive d Time (Source) Location / / Volume Laterality Blood (Blood, 07/06/2021 9:35 AM 07/07/19 22 Venous) CDT 10:17 AM CDT Sae Chavarria M.D., BarbaraM., M.S. LAB BLOOD ADD-O N Performing Organization Address City/[facility]/ZIP Code Phon e Number [facility] - 200 [place], [place] [address] [facility] [place] [address] Laboratories-[facility] [address] [facility] (ABNORMAL) CBC with Differential, Blood (07/06/2021 9:35 AM CDT) [facility] Method Time Signature Hemoglobin 11.2 (L) 13.2 - 07/06/2021 DTL 16.6 g/dL 10:10 AM CDT Hematocrit 36.0 (L) 38.3 - 07/06/2021 DTL 48.6 % 10:10 AM CDT Erythrocytes 3.88 (L) 4.35 - 07/06/2021 DTL 5.65 10:10 AM CDT x10(12)/L MCV 92.8 78.2 - 07/06/2021 DTL 97.9 fL 10:10 AM CDT RBC Distrib Width 14.0 11.8 - 07/06/2021 DTL 14.5 % 10:10 AM CDT Platelet Count 234 135 - 317 07/06/2021 DTL x10(9)/L 10:10 AM CDT Leukocytes 7.5 3.4 - 9.6 07/06/2021 DTL x10(9)/L 10:10 AM CDT Neutrophils 5.32 1.56 - 07/06/2021 DTL 6.45 10:10 AM CDT x10(9)/L Lymphocytes 1.20 0.95 - 07/06/2021 DTL 3.07 10:10 AM CDT x10(9)/L Monocytes 0.75 0.26 - 07/06/2021 DTL 0.81 10:10 AM CDT x10(9)/L Eosinophils 0.20 0.03 - 07/06/2021 DTL 0.48 10:10 AM CDT x10(9)/L Basophils 0.06 0.01 - 07/06/2021 DTL 0.08 10:10 AM CDT x10(9)/L Specimen Anatomical Collection Method Collection Time Receive d Time (Source) Location / / Volume Laterality Blood (Blood, 07/06/2021 9:35 AM 07/07/19 22 Venous) CDT 10:00 AM CDT Sae Chavarria M.D., [place], M.S. LAB BLOOD ADD-O N Performing Organization Address [facility] Phon e Number [facility] - [address] (ABNORMAL) BUN (Blood Urea Nitrogen) (07/06/2021 9:35 AM CDT) P athologist Signature BUN (Blood Urea 33 (H) 8 - 24 07/06/2021 DTL Nitrogen), S mg/dL 10:49 AM CDT Specimen Anatomical Collection Method Collection Time Receive d Time (Source) Location / / Volume Laterality Blood (Blood, 07/06/2021 9:35 AM 07/07/19 22 Venous) CDT 10:17 AM CDT Sae Amy Romelia Chavarria M.D., [place], M.S. LAB BLOOD ADD-O N Performing Organization Address [facility] Phon e Number [facility] - [address] AST (Aspartate Aminotransferase) (07/06/2021 9:35 AM CDT) Patholo gist Method Time Signature Aspartate 16 8 - 48 07/06/2021 DTL Aminotransferase U/L 10:49 AM CDT (AST), S Specimen Anatomical Collection Method Collection Time Receive d Time (Source) Location / / Volume Laterality Blood (Blood, 07/06/2021 9:35 AM 07/07/19 22 Venous) CDT 10:17 AM CDT Sae Chavarria M.D., Asael., M.S. LAB BLOOD ADD-O N Performing Organization Address City/[facility] Phon e Number [facility] - [address] Glucose, Fasting (07/06/2021 9:35 AM CDT) P athologist Signature Glucose, P 99 70 - 100 07/06/2021 DTL mg/dL 10:34 AM CDT Last Intake 15 hr 07/06/2021 DTL 10:17 AM CDT Comment: REVISED RESULTS Specimen Anatomical Collection Method Collection Time Receive d Time (Source) Location / / Volume Laterality Blood (Blood, 07/06/2021 9:35 AM 07/07/19 Venous) CDT 10:17 AM CDT Sae Chavarria M.D., [place], M.S. LAB BLOOD NON A DD-ON Performing Organization Address City/[facility] Phon e Number [facility] - 200 [place], [place] [address] [place] [address] [place] [address] [address] Sodium (07/06/2021 9:35 AM CDT) athologist Signature Sodium, S 140 135 - 145 07/06/2021 DTL mmol/L 10:49 AM CDT Specimen Anatomical Collection Method Collection Time Receive d Time (Source) Location / / Volume Laterality Blood (Blood, 07/06/2021 9:35 AM 07/07/19 Venous) CDT 10:17 AM CDT Sae Chavarria M.D., BarbaraM., M.S. LAB BLOOD ADD-O N Performing Organization Address [facility] [email or web address]] Code Phon e Number [facility] - 200 [place], [place] [address] [place] [address] [place], [place] [phone] [place] [address] (ABNORMAL) S-TSH (Thyroid-Stimulating Hormone - Sensitive) (07/06/2021 9:34 AM CDT) P athologist Signature TSH, Sensitive 4.4 (H) 0.3 - 4.2 07/06/2021 DTL mIU/L 10:47 AM CDT Specimen Anatomical Collection Method Collection Time Receive d Time (Source) Location / / Volume Laterality Blood (Blood, 07/06/2021 9:34 AM 07/07/19 Venous) CDT 10:17 AM CDT Sae Chavarria M.D., Asael., M.S. LAB BLOOD ADD-O N Performing Organization Address City/[facility]/ZIP Code Phon e Number [facility] - [address] [place], [place] [address] [facility] [place] [place] [address] Laboratories-[address] Lipid Panel (07/06/2021 9:34 AM CDT) P athologist Signature Cholesterol, 191 mg/dL 07/06/2021 DTL Total 10:47 AM CDT Comment: ----REFERENCE VALUE---- Desirable: < 200 Borderline high: 200 - 239 High: > or = 240 Triglycerides 99 mg/dL 07/06/2021 10:47 AM CDT DT L Comment: ----REFERENCE VALUE---- Normal: <150 Borderline high: 150-199 High: 200-499 Very high: > or =500 Cholesterol, HDL, S 61 >=40 mg/dL 07/06/2021 10:47 AM CDT DTL Calculated LDL 110 mg/dL 07/06/2021 10:47 AM CDT D TL Comment: ----REFERENCE VALUE---- Desirable: <100 mg/dL Above Desirable: 100-129 mg/dL Borderline High: 130-159 mg/dL High: 160-189 mg/dL Very High: >=190 mg/dL Cholesterol, Non-HDL, Calculated 130 mg/dL 022 10:47 AM CDT DTL Comment: ----REFERENCE VALUE---- Desirable: <130 Above Desirable: 130-159 Borderline high: 160-189 High: 190-219 Very high: > or =220 Specimen Anatomical Collection Method Collection Time Receive d Time (Source) Location / / Volume Laterality Blood (Blood, 07/06/2021 9:34 AM 07/07/19 22 Venous) CDT 10:17 AM CDT Sae Chavarria M.D., C.M., M.S. LAB BLOOD ADD-O N Performing Organization Address City/[facility] Phon e Number [facility] - 200 [place], [place] [address] [address] [facility] [place] [address] [address] (ABNORMAL) Creatinine with Estimated GFR (07/06/2021 9:34 AM CDT) Analysis Performed At Patho logist Time Signature Creatinine 1.70 (H) 0.74 - 07/06/2021 DTL 1.35 mg/dL 10:47 AM CDT eGFR-Non 36 (L) >=60 07/06/2021 DTL Black/ mL/min/BSA 10:47 AM CDT [place] Comment: ----ADDITIONAL INFORMATION---- Estimated GFR calculated using the 2009 CKD_EPI creatinine equation. eGFR-Black/ 41 (L) >=60 mL/min/BSA 2021 10:47 AM CDT DTL Comment: ----ADDITIONAL INFORMATION---- Estimated GFR calculated using the 2009 CKD_EPI creatinine equation. Specimen Anatomical Collection Method Collection Time Receive d Time (Source) Location / / Volume Laterality Blood (Blood, 07/06/2021 9:34 AM 07/07/19 22 Venous) CDT 10:17 AM CDT Sae Chavarria M.D., C.M., M.S. LAB BLOOD ADD-O N Performing Organization Address City/State/ZIP Code Phon e Number [facility] - [address] [place], [place] [address] [facility] [place] [address] Laboratories-[facility] [address] documented in this encounter Visit Diagnoses Diagnosis Cardiomyopathy Dilated (HCC) documented in this encounter Care Teams Teacher Private Relationship Specialty Start Date End Date Elsewhere, Pcp PCP - General Internal Medicine 05/29/19 documented as of this encounter
--- OUTSIDE RECORDS SUMMARY | 2022-01-16 15:54 | XMS_ITS | Encounter Summary ---
:1935 Author Organization [facility] Address [address] [place] [address] Care Team Providers Name Role Phone Elsewhere, Pcp Primary Care Provider Unavailable Reason for Visit Reason Comments Med Refill Encounter Details Date Type Department Care Team Description 06/09/2021 Refill Department of Cardiovascular Johnu Aidee diez, Sae Med Refill Medicine in [place], [place] Bryan Reyes, C.M., M.S. [address] [place] [address] [address] [place] [address] [place], [place] [phone] (Wo rk) Social History Tobacco Use Types [...] or relatives? How often do you attend orthodoxy or More than 4 times per year 09/25/2021 church services? Do you belong to any clubs or Yes 09/25/2021 organizations such as orthodoxy groups, unions, fraternal or athletic groups, or [...] on filedocumented in this encounter Care Teams Film Library Clerk Relationship Specialty Start Date End Date Elsewhere, Pcp PCP - General Internal Medicine 05/29/19 documented as of this encounter
--- OUTSIDE RECORDS SUMMARY | 2022-01-16 15:54 | XMS_ITS | Encounter Summary ---
:1935 Author Organization [facility] Address [address] [place] [address] Care Team Providers Name Role Phone Elsewhere, Pcp Primary Care Provider Unavailable Reason for Referral Outpatient (Routine) - Closed Specialty Diagnoses / Procedures Referred By Contact Refer red To Contact Diagnoses Cardiomyopathy Dilated (HCC) Bundle Branch Block Left [facility]ae [facility] Procedures Echo Transthoracic (TTE) Kam Adams, M.S. [address] [place] [phone] Referral ID Status Reason Start Date Expiration Date Visits Requ ested Visits Authorized [id number] Closed 07/06/2021 07/06/2022 1 1 Reason for Visit Outpatient (Routine) - Closed Specialty Diagnoses / Procedures Referred By Contact Refer red To Contact Diagnoses Cardiomyopathy Dilated (HCC) Bundle Branch Block Left [facility]ae [facility] Procedures Echo Transthoracic (TTE) Asael Adams., M.S. [address] [place] [phone] Referral ID Status Reason Start Date Expiration Date Visits Requ ested Visits Authorized [id number] Closed 07/06/2021 07/06/2022 1 1 Encounter Details Date Type Department Care Team Description 09/29/2021 Hospital Encounter Department of Abou Cardiomy opathy Dilated (HCC); Cardiovascular Ezzeddine, Bundle Branch Block Left [facility] M[facility] CDomen[facility], [address] [facility].[place], [place] [address] [phone] [place] [phone] Social History Tobacco Use Types Packs/Day Years [...] or relatives? How often do you attend evangelical or More than 4 times per year 09/25/2021 yazidism services? Do you belong to any clubs or Yes 09/25/2021 organizations such as evangelical groups, unions, fraternal or athletic groups, or [...] pay for the very basics like Not adriana maldonado hard 09/25/2021 food, housing, medical care, and [...] place to sleep or slept in a longterm (including now)? Education Answer Date Recorded What [...] medical CPAP machine for home 0 supply mis use at pressure: 4-12 cm/H2O, Heated humidifier [...] Diagnosis Comme nts (TTE) 2D ECHO Routine 09/29/2021 11:48 Cardiomyopathy Dilated Results for this DOPPLER COLOR AM CDT (HCC) procedure are in Bundle Branch Block the resu lts Left section. documented in this encounter Results (TTE) 2D ECHO DOPPLER COLOR (09/29/2021 11:48 AM CDT) P athologist Signature Ejection 45 MC CV EIMS Fraction Sinus of 45 MC CV EIMS Valsalva Proximal 45 MC CV EIMS Ascending Aorta Mid-Ascending 45 MC CV EIMS Aorta LV 62 MC CV EIMS End-Diastolic Diameter MV E Velocity 0.40 MC CV EIMS MV A Velocity 0.90 MC CV EIMS MV E/A 0.44 MC CV EIMS MV e' Velocity 0.04 MC CV EIMS Medial MV e' Velocity 0.06 MC CV EIMS Lateral MV E/e' Medial 10 MC CV EIMS MV E/e' Lateral 6.70 MC CV EIMS Tricuspid 0.17 MC CV EIMS Annular S? TR Vmax 2.60 MC CV EIMS RA Pressure 5 MC CV EIMS RV Systolic 32 MC CV EIMS Pressure Estimated 10 MC CV EIMS diastolic pulmonary artery pressure AV mean 2 MC CV EIMS gradient LA Volume Index 44 MC CV EIMS Aortic Valve 1.10 MC CV EIMS Systolic Peak Velocity Anatomical Region Laterality Modality Echocardiography Specimen (Source) Anatomical Collection Method Collection Time Re ceived Time Location / / Volume Laterality 09/29/2021 10:22 AM CDT Impressions 09/29/2021 1:00 PM CDT Last full echocardiogram performed 05/27/2019. Echocardiogram performed per left ventricular function protocol for aortic regurgitation assessment. LEFT VENTRICLE:Enlarged left ventricular chamber size. Left ventricular volumes were performed but not reported based on event sales representative's judgment. Estimated left ventricular ejection fraction 45%. Abnormal ventricular septal motion due to conduction. Normal left ventricular filling pressure . RIGHT VENTRICLE:Normal right ventricular chamber size. Normal right ventricular systolic function. Estimated right ventricular systolic pressure 32 mmHg (right atrial pressure of 5 mmHg). ATRIA:Moderately enlarged left atrial si ze. Left atrial volume index 44 ml/m2. Normal right atrial size. CARDIAC VALVES:Trileaflet aortic valve. Sclerotic aortic valve. Eccentric aortic valve regurgitant jet. Moderate aortic valve regurgitation. Thickened mitral valve. Redundant mitral valve chordae. Trivial mitral valve regurgitation. Normal tricuspid valve. Trivial tricuspid valve regurgita tion. OTHER ECHO FINDINGS:Normal inferior vena cava size with normal inspiratory collapse (>50%). Enlarged sinus of Valsalva diameter of 45 mm. Upper limit of normal of the sinus of Valsalva for age, sex a nd BSA is 43 mm. Enlarged mid ascending aorta diameter of 45 mm. Upper limit of normal of the m id ascending aorta, for age, sex and BSA is 44 mm. Lipomatous atrial septum. Redundant atrial septum. No ??pericardial effusion. No intracardiac mass or thrombus, but the left atrial appendage cannot be visualized adequately with transthoracic echo to ex clude thrombus in this location. For the complete report, see the Order-L evel Documents. Narrative 09/29/2021 1:00 PM CDT For the complete report, see the Order-Level Documents. Final Impressions 1. Quantitation of the left ventricular size and ejection fraction does not lend itself to echocardiographic measures. ??There is significant ventricular asynchrony and apical/ apical septal wall motion abnormalities rendering linear measurements inaccurate. ??Biplane measurements were done multiple times and the results were not reproducible. ??The biplane measurements excludes the long axis imaging plane which is affected by the asynchrony to the greatest degree. ??The heart did not fit into the sector for echo 3D volume assessment. ?? For ejection fraction decision making for PRIMING MIXTURE CARRIER, suggest alternative technique. 2. Moderate aortic valve regurgitation. 3. Enlarged left ventricular chamber siz e ??, estimated ejection fraction 45%. 4. Normal left ventricular filling press ure. 5. Normal right ventricular chamber size , normal systolic function, estimated right ventricular systolic pressure 32 mmHg (right atrial pressure of 5 mmHg). 6. Enlarged aortic root and ascending ao rta, see Aorta Graphics. ??Trileaflet sclerotic aortic valve, moderate eccentric regurgitation. 7. Compared to the report of 12/09/2020 no significant change has occurred. Side by side comparison of images performed. I am not confident that the 3-D software tracked all of the myocardial ruby on the last study and suspect it under- reported the ejection fraction. Procedure Note Killian Olivares M.D. - 09/29/2021Formatt ing of this note might be different from the original. For the complete report, see the Order-L evel Documents. Final Impressions 1. Quantitation of the left ventricular size and ejection fraction does not lend itself to echocardiographic measures. There is significant ventricular asynchrony and apical/ apical septal wall motion abnormalities rendering linear measurements inaccurate . Biplane measurements were done multiple times and the results were not reproducible. The biplane measurements excludes the long axis imaging plane which is affected by the asynchrony to the greatest degree. The h eart did not fit into the sector for echo 3D volume assessment. For ejection fraction decision making for PRIMING MIXTURE CARRIER, suggest alternative technique. 2. Moderate aortic valve regurgitation. 3. Enlarged left ventricular chamber siz e , estimated ejection fraction 45%. 4. Normal left ventricular filling press ure. 5. Normal right ventricular chamber size , normal systolic function, estimated right ventricular systolic pressure 32 mmHg (right atrial pressure of 5 mmHg). 6. Enlarged aortic root and ascending ao rta, see Aorta Graphics. Trileaflet sclerotic aortic valve, moderate eccentric regurgitation. 7. Compared to the report of 12/09/2020 no significant change has occurred. Side by side comparison of images performed. I am not confident that the 3-D software tracked all of the myocardial ruby on the last study and suspect it under-reported the ejection fraction. Findings Last full echocardiogram performed 05/26. Echocardiogram performed per left ventricular function protocol for aortic regurgitation assessment. LEFT VENTRICLE:Enlarged left ventricular chamber size. Left ventricular volumes were performed but not reported based on event sales representative's judgment. Estimated left ventricular ejection fraction 45%. Abnormal ventricular septal motion due to conduction. Normal left ventricular filling pressure. RIGHT VENTRICLE:Normal right ventricular chamber size. Normal right ventricular systolic function. Estimated right ventricular systolic pressure 32 mmHg (right atrial pressure of 5 mmHg). ATRIA:Moderately enlarged left atrial si ze. Left atrial volume index 44 ml/m2. Normal right atrial size. CARDIAC VALVES:Trileaflet aortic valve. Sclerotic aortic valve. Eccentric aortic valve regurgitant jet. Moderate aortic valve regurgitation. Thickened mitral valve. Redundant mitral valve chordae. Trivial mitral valve regurgitation. Normal tricuspid va lve. Trivial tricuspid valve regurgitation. OTHER ECHO FINDINGS:Normal inferior vena cava size with normal inspiratory collapse (>50%). Enlarged sinus of Valsalva diameter of 45 mm. Upper limit of normal of the sinus of Valsalva for age, sex and BSA is 43 mm. Enlarged mid ascending aorta diameter of 45 mm. U pper limit of normal of the mid ascending aorta, for age, sex and BSA is 44 mm. Lipomatous atrial septum. Redundant atrial septum. No pericardial effusion. No intracardiac mass or thrombus, but the left atrial appendage cannot be visualized adequately with transthoracic echo to exclude thrombus in this location. For the complete report, see the Order-L evel Documents. Sae Chavarria M.D., C.M., M.S. CV ECHO PROCEDU RES documented in this encounter Visit Diagnoses Diagnosis Cardiomyopathy Dilated (HCC) Bundle Branch Block Left documented in this encounter Care Teams Financial Planning Adviser Relationship Specialty Start Date End Date Elsewhere, Pcp PCP - General Internal Medicine 05/29/19 documented as of this encounter
--- OUTSIDE RECORDS SUMMARY | 2022-01-16 15:54 | XMS_ITS | Encounter Summary ---
:1935 Author Organization [facility] Address [address] [place] [address] Care Team Providers Name Role Phone Elsewhere, Pcp Primary Care Provider Unavailable Encounter Details Date Type Department Care Team Description 12/09/2020 Hospital Encounter Department of Abisai Barrera Mitral Radiology, Best Daugherty M.D. Building, in [address] [place] [id number] [place], [place] [phone] (Work) [phone] Social History Tobacco Use Types Packs/Day Years [...] or relatives? How often do you attend tenriism or More than 4 times per year 09/25/2021 baptist services? Do you belong to any clubs or Yes 09/25/2021 organizations such as tenriism groups, unions, fraternal or athletic groups, or [...] medical CP[place] machine for home 0 [place] [facility] [place] at pressure: 4-12 cm/H2O, Heated humidifier [...] DX CHEST AP OR RAD - Routine 12/09/2020 9:33 Regurgitation Mitral R esults for this PA AND LATERAL 2 (most inpatients AM CDT procedu re are in VIEWS and all the results outpatients) section. documented in this encounter Results DX [...] Barrera Jr., M.D. IMG DIAGNOSTIC IMAGING PROCE KALLI documented in this encounter Visit Diagnoses Diagnosis Regurgitation Mitral documented in this encounter Care Teams Corsage Maker Relationship Specialty Start Date End Date Elsewhere, Pcp PCP - General Internal Medicine 05/29/19 documented as of this encounter
--- OUTSIDE RECORDS SUMMARY | 2022-01-16 15:54 | XMS_ITS | Encounter Summary ---
:1935 Author Organization [facility] Address [address] [place] [address] Care Team Providers Name Role Phone Elsewhere, Pcp Primary Care Provider Unavailable Reason for Visit Reason Comments Extreme nose bleed Encounter Details Date Type Department Care Team Description 07/01/2021 [facility] Communication Cardiovascular [facility], Medicine in [place], [place] Bryan, C.M., [address] [place], [place] 200 [facility] [address] [place] [id number] Social History Tobacco Use Types Packs/Day Years [...] or relatives? How often do you attend religion or More than 4 times per year 09/25/2021 church services? Do you belong to any clubs or Yes 09/25/2021 organizations such as religion groups, unions, fraternal or athletic groups, or [...] place to sleep or slept in a skilled nursing (including now)? Education Answer Date Recorded What is the highest level of school Bachelor's degree (e.g., BA, AB, 05/16/2019 you have completed or the highest BS) degree you have received? Sex Assigned at Date Recorded Male 08/14/2017 2:01 PM CDT documented as of this encounter Miscellaneous Notes Telephone Encounter - Pauline Aguila R.N. - 07/02/2021 9:39 AM CDT PLAN The following information was provided: RN called , Shira, to relay provider recommendations. They will hold the Eliquis until appointment with Dr. Sae Da Silva on 07/06. Information/Education: patient/caller able to teach back The following references were used: nursing clinical judgement and provider Dr. Sae Da Silva Telephone Encounter - Chinyere Nascimento - 07/01/2021 10:33 AM CDT SUBJECTIVE CHIEF COMPLAINT / REASON FOR CALL Extreme nose bleed Name of caller/relationship to the patient: Shira Franz, patient's . Patient expects communication via portal: No Phone number: [phone] Request topic and what needs to be addressed? Symptoms ?? Goal or summary: Patient had an extremely heavy nosebleed last Monday, June 27. Local provider has suggested that the patient's Eliquis dose be lowered or stopped. Patient is seeking the advice of Dr. Romelia Chavarria. Please call to discuss. ? Recent change/new symptom/duration: Patient developed severe nosebleed on Monday. Because he was unable to get the nosebleed to stop, he presented to his local ED. A Rhino Rocket was placed in his nose for three days (ED doctor said that patient would not have been able to stop the nosebleed on hisown). Patient presented to local clinic yesterday, June 30, and had the Rhino Rocket removed. A Rothsay AF Assessment was completed; the results revealed that it would possibly be safe for the patientto stop Eliquis (minimal risk for blood clot; reduce potential for serious blood loss due to bleed).Patient has skipped a total of 4 Eliquis doses in the past 4 days. At this point, patient has not sweta en the Eliquis dose today. ? Additional comments: Patient is very concerned that he will continue to have severe nosebleeds ifhe stays on the Eliquis. documented in this encounter Plan of Treatment Not on filedocumented as of this encounter Visit Diagnoses Not on filedocumented in this encounter Care Teams Legal Summer Intern Relationship Specialty Start Date End Date Elsewhere, Pcp PCP - General Internal Medicine 05/29/19 documented as of this encounter
--- OUTSIDE RECORDS SUMMARY | 2022-01-16 15:54 | XMS_ITS | Encounter Summary ---
:1935 Author Organization [facility] Address [address] [place] [address] Care Team Providers Name Role Phone Elsewhere, Pcp Primary Care Provider Unavailable Reason for Visit Reason Comments Pre-visit Intake Encounter Details Date Type Department Care Team Description 09/28/2021 Clinical Communication Visit Review in Pr e-visit Intake [place], [place] 200 [place], [place] [id number] Social History Tobacco Use Types Packs/Day Years [...] or relatives? How often do you attend muslim or More than 4 times per year 09/25/2021 alevism services? Do you belong to any clubs or Yes 09/25/2021 organizations such as muslim groups, unions, fraternal or athletic groups, or [...] on filedocumented in this encounter Care Teams Assembler Bicycle Relationship Specialty Start Date End Date Elsewhere, Pcp PCP - General Internal Medicine 05/29/19 documented as of this encounter
--- OUTSIDE RECORDS SUMMARY | 2022-01-16 15:54 | XMS_ITS | Encounter Summary ---
:1935 Author Organization [facility] Address [address] [place] [address] Care Team Providers Name Role Phone Elsewhere, Pcp Primary Care Provider Unavailable Reason for Visit Outpatient (Routine) - Closed Specialty Diagnoses / Referred By Contact Referred To Contact Procedures Cardiovascular Diseases / Diagnoses [facility]itation [facility] Sae Reyes M.D., CDomenica, M.S. [address] [place] [phone] Referral ID Status Reason Start Date Expiration Date Visits Requ ested Visits Authorized [id number] Closed 12/02/2020 12/02/2021 1 1 Encounter Details Date Type Department Care Team Description 12/16/2020 Comprehensive Visit Department of Abisai Barrera yowiley Dilated (HCC) (Primary Dx); Cardiovascular Monica Daugherty M.D. Regurgitation Aortic; Medicine in [address] [place] [address] [facility] [place]; [facility] Malignant Neoplasm Of Esophagus (HCC); [address] [place] [address], Malignant Neoplasm Of Bladde r (HCC); [facility] Hypothyroidism ; [id number] Anemia; [phone] Apnea Sleep Obs tructive (Work) Social History Tobacco Use Types Packs/Day Years [...] or relatives? How often do you attend buddhism or More than 4 times per year 09/25/2021 islam services? Do you belong to any clubs or Yes 09/25/2021 organizations such as buddhism groups, unions, fraternal or athletic groups, or [...] Sign Reading Time Taken Comments Blood Pressure 111/47 12/16/2020 9:40 AM CDT Pulse 59 12/16/2020 9:40 AM CDT Temperature - - Respiratory Rate - - Oxygen Saturation - - Inhaled Oxygen Concentration - - Weight - - Height - - Body Mass Index - - documented in this encounter H&P Notes Abisai Barrera Jr., M.D. - 12/16/2020 10:00 AM CDT REFERRAL SOURCE Sae Chavarria, Bettina MORRIS CHIEF COMPLAINT / REASON FOR VISIT Dilated cardiomyopathy, aortic valve disease HISTORY OF PRESENT ILLNESS Mr. Frnaz is now 85 years of age. He is here with his and daughter. I reviewed the previous extensive notes from his heart failure consultations. He has been followed for a dilated cardiomyopathy of unknown cause. He has clean health habits and does not use alcohol or stimulants. It is possible he has had prolonged atrial fibrillation at rapid rate or atrial flutter rapid rate as part of the cause. He is being treated appropriately now in his ejection fraction has improved. There is there is a discrepancy regarding the interpretation of previous echocardiograms but the most recent one suggest that he does not have thickened ruby and that there is no evidence of an infiltrative cardiomyopathy. His coronary disease is felt to be noncontributory. The last echocardiogram here suggest some aortic insufficiency and stenosis. On review this does notappear to be major. If he does not over exert he does fairly well. He can walk at a fairly slow pace although he is somewhat short of breath according the family members. There is no major history of fainting although he has had low blood pressure in the past which has improved. Laboratory data are reviewed from December 09, 2020. I gave him a copy. Values include hemoglobin 10.7, MCV 90.7 FL, white count 6, 500, platelet count 222, 000, INR 1.2, sodium 141, potassium 4.2, creatinine 1.74, glucose 111, NT proBNP 591, cholesterol 187, HDL 61, LDL 105, triglycerides 104 and sensitive TSH 5.7. I reviewed the PA and lateral chest x-ray images from December 09, 2020, and showed them to him. The overall CT ratio is about 0.55. The pulmonary veins and pulmonary arteries are both prominent. The left diaphragm is elevated by both the stomach contents and a large colonic loop. There is kyphosis of the spine. The radiologist reports that the prior tiny pleural effusions have resolved. The most recent ECG is from November 04 of this year. I interpreted to show sinus rhythm at 67 beats per minute a slight sinus arrhythmia, first-degree AV delay, left bundle branch block, and a QTC of 500 milliseconds. I reviewed the report of the transthoracic [...] in systole and 61 mm in diastole The following portions of the patient's history were reviewed and updated as appropriate: allergies,current medications, family history, medical history, social history, surgical history, psychiatric history, substance abuse history, problem list, labs, diagnostics tests.. I also reviewed pertinent clinical notes in the electronic health record. REVIEW OF SYSTEMS Patient provided responses to questionnaire: Constitutional: Positive for fatigue. Respiratory: Positive for dyspnea and sleep disturbances due to breathing. Gastrointestinal: Positive for heartburn. Genitourinary: Positive for incontinence, urgency and frequent urination. Hematologic: Positive for bruises or bleeds easily. Musculoskeletal: Positive for back pain. Neurological: Positive for light-headedness, excessive daytime sleepiness and loss of balance or tendency to fall easily. Psychiatric/Behavioral: Positive for excessive daytime sleepiness/tiredness, stop breathing, choking, or gasping while asleep, little interest or pleasure in doing things over past two weeks and feeling down, depressed, or hopeless over past two weeks. All other systems reviewed and are negative. The following systems were negative: Skin, Eyes, ENT, CV MEDICATIONS Current Medications: ??? acetaminophen (TYLENOL) 500 mg tablet, Take 1,000 mg by mouth as needed. ??? apixaban (ELIQUIS) 5 mg tablet, Take 1 tablet (5 mg total) by mouth 2 (two) times a day. ??? Carafate 100 mg/mL suspension, TAKE 2 TEASPOONSFUL (10 ML) THREE TIMES A DAY AFTER MEALS (Patient taking differently: as needed. ) ??? cyanocobalamin (vitamin B-12) 1,000 mcg tablet, Take 1,000 mcg by mouth daily. ??? ferrous sulfate 220 mg (44 mg iron)/5 mL elixir, Take 220 mg by mouth daily. ??? fluticasone (FLONASE) 50 mcg/actuation nasal spray, Administer 1 spray into each nostril daily as needed for rhinitis. ??? levothyroxine (SYNTHROID, LEVOTHROID) 100 mcg tablet, Take 1 tablet (100 mcg total) by mouth every morning. ??? loperamide (IMODIUM A-D) 2 mg capsule, Take 4 mg by mouth. Take 4 mg by mouth with 1st loose stool, then 2nd with each subsequent loose stool. Max of 16 mg in 24 hours. Take every other day. ??? loratadine (CLARITIN) 10 mg tablet, Take 1 tablet by mouth daily as needed for allergies. ??? melatonin 3 mg tablet, Take 3 mg by mouth at bedtime. ??? metoprolol succinate (TOPROL-XL) 50 mg 24 hr tablet, Take 1.5 tablets (75 mg total) by mouth 2 (two) times a day. Do not crush or chew. ??? miscellaneous medical [place] [facility] [place] CPAP machine for home use at pressure: 4- 12 cm/H2O, Heated humidifier x 1, Humidifier chamber x 1, nasal pillow mask with pillow cushion x 1, Heated tubing x 1, Headgear x 1, Filters: Disposable x 1pk & Reusable x 1pk, Length of Need: 99 months, Frequency of use: Daily ??? pantoprazole (PROTONIX) 40 mg EC tablet, Take 1 tablet by mouth 2 (two) times a day. One tablet 30 minutes prior to morning and evening meals ??? peg 400-propylene glycol (SYSTANE, PROPYLENE GLYCOL,) 0.4-0.3 % ophthalmic solution, Administer 1 drop into both eyes 4 (four) times a day as needed. ??? sacubitriL-valsartan (ENTRESTO) 97-103 mg per tablet, Take 1 tablet by mouth 2 (two) times a day. ??? simvastatin (ZOCOR) 20 mg tablet, Take 1 tablet by mouth daily. ??? tamsulosin (FLOMAX) 0.4 mg 24 hr capsule, Take 0.4 mg by mouth daily. ??? torsemide (DEMADEX) 10 mg tablet, Take 1 tablet (10 mg total) by mouth every other day. Weigh yourself daily. Take an extra 10 mg if you gain 2 lbs in 1 day or 5 lbs in 1 week (Patient taking differently: Take 10 mg by mouth as directed. Weigh yourself daily. Take an extra 10 mg if you gain 2 lbs in 1 day or 5 lbs in 1 week ) ??? venlafaxine XR (EFFEXOR-XR) 150 mg 24 hr capsule, Take 150 mg by mouth daily with breakfast. ??? vit C/E/Zn/coppr/lutein/zeaxan (PRESERVISION AREDS 2 ORAL), Take 1 tablet by mouth 2 (two) timesa day. VITALS Blood Pressure: 111/47 Pulse 50 beats per minute, regular Height 179 cm Weight 84.8 kg BMI 26.47 PHYSICAL EXAMINATION General: Appears deconditioned. He is a bit forgetful. He does require mild assistance to get up anddown from the examination table. He answers questions appropriately.. Alert and articulate. Skin: No cyanosis, icterus, pallor, ecchymoses or petechiae. No stasis dermatitis or ulceration. Vessels: Carotid contour normal. The carotids are not bounding or tardus.. No carotid or subclavian bruits. Jugular venous pressure normal. No abnormal venous waves. Hepatojugular reflux negative on liver compression. Heart: Regular rhythm. The heart is not overactive. Mitral 1st sound normal. Aortic and pulmonic closure sounds normal. I do not appreciate paradoxic splitting of the 2nd sound with inspiration. No 3rdor 4th sound. No click from aortic valve or mitral valve. No rub, ectopy, dyskinesis, abnormal lift, vibration or rapid filling wave. There is no significant murmur. I hear nothing for aortic insufficiency or aortic stenosis. Lungs: Clear to auscultation and percussion. No dyspnea. Abdomen: No liver tenderness or swelling. No abdominal aortic aneurysm. Extremities: Ankle edema minimal trace only. This is not significant. No phlebitis. Eyes: No xanthelasma, icterus or conjunctivitis. ENT: Hearing and balance are satisfactory. Musculoskeletal:Normal musculature, gait and coordination. No atrophy. Psychiatry: Cheerful and not depressed. ASSESSMENT / PLAN #1 Dilated cardiomyopathy #2 Chronic left bundle branch block #3 Trivial aortic insufficiency By clinical examination this is not significant. I do not believe this will need to be followed intensively. #4 Chronic left ventricular congestive failure He is on very appropriate medication and is doing relatively well. He avoids stimulants. He does nothave evidence of congestive failure due to any ischemic problem. It is possible he had tachycardia related cardiomyopathy in the past. #5 Sleep apnea #6 Thyroid deficiency He takes thyroid replacement medication appropriately. I believe his current dose is appropriate forhis condition. The sensitive TSH is borderline upper limit. #7 Deconditioning He may be in the frail category. He is at fall risk. He has a cane. What to do? I do not believe he needs to have any further cardiac evaluation at this time. The increased pulmonary artery markings suggest a possible atrial septal defect or anomalous pulmonary venous return but this is not apparent by echocardiography. If there is a question in the future, he might benefit from my congenital echocardiogram. The increased pulmonary venous markings are consistent withhis congestive cardiomyopathy. I do not believe he would have anything done structurally even if he were to have a partial anomalous pulmonary venous return. He tells me he has had his two COVID vaccination shots. Because he is a senior person and is deconditioned he should not be exposed to patients who might be caring COVID. It is well-known that on vaccinated people may be asymptomatic in still carry the virus to others. Abisai Barrera Jr., M.D. 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
--- OUTSIDE RECORDS SUMMARY | 2022-01-16 15:54 | XMS_ITS | Encounter Summary ---
:1935 Author Organization [facility] Address [address] [place] [address] Care Team Providers Name Role Phone Elsewhere, Pcp Primary Care Provider Unavailable Encounter Details Date Type Department Care Team Description 03/15/2021 Clinical Communication Department of [facility] Cardiovascular Medicine [facility] in [facility] lizett Reyes M.D., [address] [place] [address] [place] [phone] [place] [address] [place] [phone] Social History Tobacco Use Types Packs/Day Years [...] place to sleep or slept in a long-term (including now)? Education Answer Date Recorded What is the highest level of school Bachelor's degree (e.g., BA, AB, 05/16/2019 you have completed or the highest BS) degree you have received? Sex Assigned at Date Recorded Male 08/14/2017 2:01 PM CDT documented as of this encounter Miscellaneous Notes Telephone Encounter - Mary Rodriguez - 03/15/2021 2:[address] Romelia Chavarria, Mr. Franz is scheduled to see you on 05/11. I sent you HF est panel for testing. Thank you, Mary AN TEACHER documented in this encounter Plan of Treatment Not on filedocumented as of this encounter Visit Diagnoses Not on filedocumented in this encounter Care Teams Interior Paneler Relationship Specialty Start Date End Date Elsewhere, Pcp PCP - General Internal Medicine 05/29/19 documented as of this encounter
--- OUTSIDE RECORDS SUMMARY | 2022-01-16 15:54 | XMS_ITS | Encounter Summary ---
:1935 Author Organization [facility] Address [address] [place] [address] Care Team Providers Name Role Phone Elsewhere, Pcp Primary Care Provider Unavailable Reason for Visit Reason Onset Date Comments Internal Referral 12/04/2020 Encounter Details Date Type Department Care Team Description 12/04/2020 Clinical Department of Damon Fisher Refer ral Communication Cardiovascular Seema Cortes, Medicine in [facility] [address] [place] [address] [address] [place] [phone] Social History Tobacco Use Types Packs/Day Years [...] or relatives? How often do you attend islam or More than 4 times per year 09/25/2021 confucianism services? Do you belong to any clubs or Yes 09/25/2021 organizations such as islam groups, unions, fraternal or athletic groups, or [...] place to sleep or slept in a mcc (including now)? Education Answer Date Recorded What is the highest level of school Bachelor's degree (e.g., BA, AB, 05/16/2019 you have completed or the highest BS) degree you have received? Sex Assigned at Date Recorded Male 08/14/2017 2:01 PM CDT documented as of this encounter Miscellaneous Notes Telephone Encounter - Seema Fisher R.N. - 12/04/2020 9:31 AM CDT CV Valve Clinic pet handler REFERRAL SOURCE: Sae Espinal M.D., C.M., M.S. Physician CVD Congestive Heart Failure CHIEF COMPLAINT / REASON FOR VISIT Regurgitation Aortic HISTORY OF PRESENT ILLNESS This is pleasant 85-year-old gentleman with a history of nonischemic dilated cardiomyopathy, known to Dr. Hickey and Dr. Hooper. Please refer to their notes for full details of his history. ?? Reportedly, coronary angiography showed 30% disease, EF, and A-Fib. RVR was in the 20% range. Enrolled in the Heart Failure Clinic remotely after a virtual consultation with Dr. Hickey and Dr. Hooper initiated on guideline-directed medical therapy. He is currently on Entresto 97-103 mg twice daily, metoprolol succinate 25 mg twice daily. Did not tolerate Aldactone with renal insufficiency. He anabel torsemide 10 mg on Mondays, Wednesdays, and Fridays. He does complete most of his testing up in [place] at the [facility], and an echocardiogram obtained late September showed improvement in his ejection fraction to the 30% range and reported normalization of the left ventricle, although comment is made of severe increased wall thickness of 15 to 22 mm that was not previously commented upon. In fact, his echo from 2019 here shows wall thickness of 10 to 11 mm. His NT-proBNP drawn there showed improvement from 4000 back in June of 2020 during A-Fib RVR down to 600 range. He does have CKD stage 3 with a creatinine in the 1.6 range with an element of prerenal insufficiency. ?? From a symptom standpoint today he feels wobbly and does admit orthostatic lightheadedness. Blood pressures typically run in the 100s to 124 systolic over 50s to 60s, however, yesterday was in the 90s systolic and today is 89/46 mmHg. His pulse is in the 50s to 60s. His tells me that he has not been keeping enough oral intake and does not drink well. He has also had some anemia that is being worked up by local Hematology and is currently being iron supplemented. He also has a history of Vicente's esophagus, and there have been plans for an upper endoscopy that were deferred due to his cardiac condition. ?? Symptomatically, he endorses NYHA class II to III, at most, symptoms. No orthopnea, PND, or lower extremity edema. No palpitations, presyncope, or joel syncope; only orthostatic lightheadedness. Review of outside echocardiogram does not show findings concerning for amyloidosis and ventricular ruby are not particularly thick. He may have significant Aortic Insufficiency however. I will requestour on echo be performed here to better assess that and have it formally reviewed in the valve clinic. PAST MEDICAL HISTORY AND SURGICAL HISTORY (EMR UPDATED) Past Medical History: Diagnosis Date ??? Anemia pt states that iron levels normally low ??? Anxiety Generalized Disorder 2009 ??? Apnea Sleep Obstructive ??? Vicente's Esophagus ??? BenignProstatic Hyperplasia Localized 5 yrs. ago ??? Cancer In Situ Bladder ??? Cataract 5 yrs. ago ??? Constipation ??? Depressive Disorder 2009 ??? Diarrhea ??? Dysfunction Thyroid ??? Gastroesophageal Reflux Disease NOS ??? Heart Failure NOS 05/16/2019 ??? Hyperlipidemia ??? Hypothyroidism ??? Malignant Neoplasm Of Colon Adenocarcinoma (HCC) ??? Malignant Neoplasm Of Esophagus (HCC) ??? Meningioma Brain (HCC) ??? Osteopenia 2013 ??? Other Specified Health Status 2013 Parkinsonism HC 2013 Meningioma HC ??? Parkinson Disease (HCC) ??? Parkinson Disease (HCC) ??? Polyp Colon ??? Shortness Of Breath ??? Sleep Apnea ??? ST Elevation Myocardial Infarction Of Unspecified Site (HCC) 05/16/2019 ??? Ulcer Peptic Past Surgical History: Procedure Laterality Date ??? APPENDECTOMY ??? CATARACT EXTRACTION ??? CATH ANGIOGRAM N/A 05/28/2019 Procedure: Coronary Angiography; Surgeon: Rosalba Crowe M.D.; Location: [facility] ??? CATH ANGIOGRAM N/A 05/28/2019 Procedure: Left Heart Catheterization; Surgeon: Rosalba Crowe M.D.; Location: [facility] ??? CATHETERIZATION BLADDER N/A 04/12/2018 Procedure: CATHETERIZATION BLADDER; Surgeon: Virgil Francisco M.D.; Location: [facility] OR ??? CYSTOSCOPY WITH TRANSURETHRAL RESECTION LESION BLADDER N/A 04/12/2018 Procedure: CYSTOSCOPY, TRANSURETHRAL RESECTION LESION BLADDER// PARALYSIS, PYRIDIUM.; Surgeon: Virgil Francisco M.D.; Location: [facility] OR ??? SINUS SURGERY 1996 ??? TONSILLECTOMY ??? TONSILLECTOMY MEDICATIONS Current Outpatient Medications: ??? acetaminophen (TYLENOL) 500 mg tablet, Take 1,000 mg by mouth as needed. , Disp: , Rfl: ??? apixaban (ELIQUIS) 5 mg tablet, Take 1 tablet (5 mg total) by mouth 2 (two) times a day., Disp: 30 tablet, Rfl: 2 ??? Carafate 100 mg/mL suspension, TAKE 2 TEASPOONSFUL (10 ML) THREE TIMES A DAY AFTER MEALS (Patient taking differently: as needed. ), Disp: 900 mL, Rfl: 11 ??? cyanocobalamin (vitamin B-12) 1,000 mcg tablet, Take 1,000 mcg by mouth daily., Disp: , Rfl: ??? ferrous sulfate 220 mg (44 mg iron)/5 mL elixir, Take 220 mg by mouth daily., Disp: , Rfl: ??? fluticasone (FLONASE) 50 mcg/actuation nasal spray, Administer 1 spray into each nostril daily as needed for rhinitis. , Disp: , Rfl: ??? levothyroxine (SYNTHROID, LEVOTHROID) 100 mcg tablet, Take 1 tablet (100 mcg total) by mouth every morning., Disp: , Rfl: ??? loperamide (IMODIUM A-D) 2 mg capsule, Take 4 mg by mouth. Take 4 mg by mouth with 1st loose stool, then 2nd with each subsequent loose stool. Max of 16 mg in 24 hours. Take every other day., Disp:, Rfl: ??? loratadine (CLARITIN) 10 mg tablet, Take 1 tablet by mouth daily as needed for allergies. , Disp: , Rfl: ??? melatonin 3 mg tablet, Take 3 mg by mouth at bedtime., Disp: , Rfl: ??? metoprolol succinate (TOPROL-XL) 50 mg 24 hr tablet, Take 1.5 tablets (75 mg total) by mouth 2 (two) times a day. Do not crush or chew., Disp: 270 tablet, Rfl: 3 ??? miscellaneous medical supply [facility] [place] CP[place] machine for home use at pressure: 4- 12 cm/H2O, Heated humidifier x 1, Humidifier chamber x 1, nasal pillow mask with pillow cushion x 1, Heated tubing x 1, Headgear x 1, Filters: Disposable x 1pk & Reusable x 1pk, Length of Need: 99 months, Frequency of use: Daily, Disp: , Rfl: ??? pantoprazole (PROTONIX) 40 mg EC tablet, Take 1 tablet by mouth 2 (two) times a day. One tablet 30 minutes prior to morning and evening meals, Disp: , Rfl: ??? peg 400-propylene glycol (SYSTANE, PROPYLENE GLYCOL,) 0.4-0.3 % ophthalmic solution, Administer 1 drop into both eyes 4 (four) times a day as needed. , Disp: , Rfl: ??? sacubitriL-valsartan (ENTRESTO) 97-103 mg per tablet, Take 1 tablet by mouth 2 (two) times a day., Disp: 180 tablet, Rfl: 3 ??? simvastatin (ZOCOR) 20 mg tablet, Take 1 tablet by mouth daily., Disp: , Rfl: ??? tamsulosin (FLOMAX) 0.4 mg 24 hr capsule, Take 0.4 mg by mouth daily. , Disp: , Rfl: ??? torsemide (DEMADEX) 10 mg tablet, Take 1 tablet (10 mg total) by mouth every other day. Weigh yourself daily. Take an extra 10 mg if you gain 2 lbs in 1 day or 5 lbs in 1 week, Disp: 60 tablet, Rfl: 3 ??? venlafaxine XR (EFFEXOR-XR) 150 mg 24 hr capsule, Take 150 mg by mouth daily with breakfast. , Disp: , Rfl: ??? vit C/E/Zn/coppr/lutein/zeaxan (PRESERVISION AREDS 2 ORAL), Take 1 tablet by mouth 2 (two) timesa day. , Disp: , Rfl: IMAGING DIAGNOSTIC REVIEW Transesophageal Echocardiogram 11/05/2020 Final Impressions 1. Outside echo performed at [facility] on 10/16/2020. 2. Severely enlarged left ventricular chamber size. Calculated EF 36%. 3. Regional wall motion abnormalities were present (see wall motion graphics). 4. Normal right ventricular chamber size and systolic function. Estimated RVSP 28 mmHg. 5. Calcified aortic valve with at least mild stenosis and at least moderate-severe regurgitation. 6. Enlarged mid ascending aorta diameter (diameter 45 mm at mid level). 7. Normal inferior vena cava size with normal inspiratory collapse (>50%). 8. No pericardial effusion. RECOMMENDATIONS TO APPOINTMENT OFFICE Regular Valve testing / Consult documented in this encounter Plan of Treatment Not on filedocumented as of this encounter Visit Diagnoses Not on filedocumented in this encounter Care Teams Track Announcer Relationship Specialty Start Date End Date Elsewhere, Pcp PCP - General Internal Medicine 05/29/19 documented as of this encounter
--- OUTSIDE RECORDS SUMMARY | 2022-01-16 15:54 | XMS_ITS | Encounter Summary ---
:1935 Author Organization [facility] Address [address] [place] [address] Care Team Providers Name Role Phone Elsewhere, Pcp Primary Care Provider Unavailable Reason for Referral Outpatient (Routine) - Closed Specialty Diagnoses / Referred By Contact Referred To Contact Procedures Cardiovascular Diseases / Diagnoses Cardiomyopathy Dilated (HCC) Bundle Branch [facility] Disease Sae Reyes M.D., Kam, M.S. [address] [place] [phone] Referral ID Status Reason Start Date Expiration Date Visits Requ ested Visits Authorized [id number] Closed 07/06/2021 07/06/2022 1 1 utpatient (Routine) - Closed Specialty Diagnoses / Procedures Referred By Contact Refer red To Contact Diagnoses Cardiomyopathy Dilated (HCC) Bundle Branch Block Left Sae Espinal [facility] Procedures Echo Transthoracic (TTE) Asael Adams., M.S. [address] [place] [phone] Referral ID Status Reason Start Date Expiration Date Visits Requ ested Visits Authorized [id number] Closed 07/06/2021 07/06/2022 1 1 Reason for Visit Outpatient (Routine) - Closed Specialty Diagnoses / Procedures Referred By Contact Refer red To Contact Cardiovascular Disease Sae Espinal [facility] Mirta Reyes M.D., CDomenica, M.S. [address] [place] [address] Referral ID Status Reason Start Date Expiration Date Visits Requ ested Visits Authorized [id number] Closed 11/04/2020 11/04/2021 1 1 Encounter Details Date Type Department Care Team Description 07/06/2021 Office Visit Department of Romelia Cardiomyopathy Dilated (HCC) (Primary Dx); Cardiovascular Medicine Raquel Chavarria [facility] Block Left in [facility] Sae Reyes M.D., [address] [facility] [place] [address] [phone] [place] [address] [place] [address] Social History Tobacco Use Types [...] or relatives? How often do you attend taoism or More than 4 times per year 09/25/2021 jehovah's witness services? Do you belong to any clubs or Yes 09/25/2021 organizations such as taoism groups, unions, fraternal or athletic groups, or [...] place to sleep or slept in a half-way (including now)? Education Answer Date Recorded What is the highest level of school Bachelor's degree (e.g., BA, AB, 05/16/2019 you have completed or the highest BS) degree you have received? Sex Assigned at Date Recorded Male 08/14/2017 2:01 PM CDT documented as of this encounter Last Filed Vital Signs Vital Sign Reading Time Taken Comments Blood Pressure 124/71 07/06/2021 2:54 PM CDT Pulse 78 07/06/2021 2:54 PM CDT Temperature - - Respiratory Rate - - Oxygen Saturation - - Inhaled Oxygen Concentration - - Weight 86.4 kg (190 lb 5.9 oz) 07/06/2021 2:54 PM CDT Height 166.7 cm (5' 5.63) 07/06/2021 2:54 PM CDT Body Mass Index 31.07 07/06/2021 2:54 PM CDT documented in this encounter Progress Notes Sae Espinal M.D., C.M., M.S. - 07/06/2021 3:00 PM CDT SUBJECTIVE HISTORY OF PRESENT ILLNESS Mr. Franz is a very pleasant 86-year-old gentleman very well known to me with a history of nonischemic dilated cardiomyopathy, atrial arrhythmias, CKD stage 3, left bundle branch block, and moderate aortic insufficiency. He is on maximally tolerated medical therapy with maximal dose Entresto, metoprolol succinate 50 mg b.i.d., intolerant of spironolactone and hemodynamics/symptoms preclude the use of SGLT2 inhibitors. He endorses NYHA class III symptoms. Denies any orthopnea, PND, lower extremity edema. He is on as needed torsemide. OBJECTIVE PHYSICAL EXAMINATION BP 124/71 (BP Location: Right arm, Patient Position: Sitting, Cuff Size: Regular) Pulse 78 Ht 166.7 cm Wt 86.4 kg BMI 31.07 kg/m?? Lungs: Clear. Heart: PMI displaced laterally. Regular. Normal 1st and 2nd. No diastolic murmur. Abdomen: Soft. Extremities: No edema and warm. 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 Franz today. His recent episode of epistaxis was while he was on 5 mg b.i.d. of apixaban at the age of 86 with a creatinine of 1.7. I have asked him to cut down his apixaban to 2.5 mg twice daily. Not much room to go with advancement of guideline-directed medical therapy, unfortunately, due to his symptoms/hemodynamics. As such, I have recommended that he be seen by our Device Group for consideration of PRECISION AGRICULTURE SPECIALIST therapy given his left bundle. Appreciate their input in this regard. Otherwise, I will plan to see him back in 6 months' time in followup. An LVEF-onlyecho is to be ordered prior to the device consult. It was a pleasure being involved in the patient's care. Sae Chavarria M.D., C.M., M.S. documented in this encounter Plan of Treatment Scheduled Referrals Name Type Priority Associated Diagnoses Order S [facility] Cardiovascular Disease Outpatient Routine Cardiomyopathy Exp ected: - Device consult Referral Dilated (HCC) 07/06/2021 (clinic) Bundle Branch Block (Approxi mate), Left Expires: 10/05/2022 documented as of this encounter Results (TTE) [...] were performed but not reported based on per diem interpreter's judgment. Estimated left ventricular ejection fraction 45%. [...] For the complete report, see the [employer] Documents. Narrative 09/29/2021 1:00 PM CDT For [...] ?? For ejection fraction decision making for PRECISION AGRICULTURE SPECIALIST, suggest alternative technique. 2. Moderate aortic valve [...] assessment. For ejection fraction decision making for PRECISION AGRICULTURE SPECIALIST, suggest alternative technique. 2. Moderate aortic valve [...] were performed but not reported based on per diem interpreter's judgment. Estimated left ventricular ejection fraction 45%. [...] the Order-L [employer] Documents. Sae Chavarria M.D., C.MCarey, M.S. CV ECHO PROCEDU RES documented in this encounter Visit Diagnoses Diagnosis Cardiomyopathy Dilated (HCC) - Primary Bundle Branch Block Left Cardiomyopathy Dilated (HCC) Bundle Branch Block Left documented in this encounter Care Teams Portfolio Accountant Relationship Specialty Start Date End Date Elsewhere, Pcp PCP - General Internal Medicine 05/29/19 documented as of this encounter
--- OUTSIDE RECORDS SUMMARY | 2022-01-16 15:54 | XMS_ITS | Encounter Summary ---
:1935 Author Organization [facility] Address [address] [place] [address] Care Team Providers Name Role Phone Elsewhere, Pcp Primary Care Provider Unavailable Reason for Referral Outpatient (Routine) - Closed Specialty Diagnoses / Procedures Referred By Contact Refer red To Contact Diagnoses [facility]omy[facility]) [facility] Procedures ECG 12 Lead Kam Adams, M.S. [address] [place] [phone] Referral ID Status Reason Start Date Expiration Date Visits Requ ested Visits Authorized [id number] Closed 03/15/2021 03/15/2022 1 1 IVING ASSOCIATE Encounter Details Date Type Department Care Team Description 03/15/2021 Orders Only Department of Romelia Cardiomyopathy Dilated Cardiovascular Medicine Aura, (HCC ) (Primary Dx) in [facility] Sae Reyes M.D., [address] [facility] CDomenica, M.S. [place], [place] [phone] [place] [address] [place] [address] Social History Tobacco Use Types [...] or relatives? How often do you attend mormonism or More than 4 times per year 09/25/2021 orthodoxy services? Do you belong to any clubs or Yes 09/25/2021 organizations such as mormonism groups, unions, fraternal or athletic groups, or [...] place to sleep or slept in a fci (including now)? Education Answer Date Recorded What [...] Degenerative changes thoracic spine. Sae Chavarria M.D., C.Yareli, M.S. IMG DIAGNOSTIC IMAGING PROCEDURES ECG 12 Lead (07/06/2021 11:15 AM CDT) P athologist Signature Ventricular Rate 71 BPM MUSE ECG/Min IA Interval 220 ms MUSE QRSD Interval 174 ms MUSE QT Interval 454 ms MUSE QTC Interval 493 ms MUSE P [place] 62 degrees MUSE R [place] 12 degrees MUSE T Wave [place] 162 degrees MUSE Specimen Anatomical Collection Method Collection Time Receive d Time (Source) Location / / Volume Laterality 07/06/2021 11:15 07/06/2021 AM CDT 11:17 AM CDT Impressions MUSE - 07/06/2021 11:17 AM CDT Sinus rhythm with sinus arrhythmia with 1st degree A-V block Left bundle branch block with secondary ST-T abnormalities When compared with ECG of 04-NOV-2020 13 :33, No significant change was found Reviewed by LUBNA Mcguire Narrative This result has an attachment that is no t available. Procedure Note Abisai Barrera Jr., M.D. - 07/06/2021For matting of this note might be different from the original. IMPRESSION: Sinus rhythm with sinus arrhythmia with 1st degree A-V block Left bundle branch block with secondary ST-T abnormalities When compared with ECG of 04-NOV-2020 13 :33, No significant change was found Reviewed by LUBNA Mcguire Sae Chavarria M.D., Kam, M.S. ECG ORDERABLES Performing Organization Address City/State/ZIP Code Phon e Number MICHAEL RODRIGUEZ NA (ABNORMAL) NT-Pro B-Type Natriuretic Peptide (BNP) (07/06/2021 [...] LAB BLOOD ADD-O N Performing Organization Address City/[facility] Phon e Number [facility] - [address] [address] Laboratories-[facility] [address] [facility] Potassium (07/06/2021 9:35 AM CDT) athologist Signature Potassium, S 4.8 3.6 - 5.2 07/06/2021 DTL mmol/L 10:49 AM CDT Specimen Anatomical Collection Method Collection Time Receive d Time (Source) Location / / Volume Laterality Blood (Blood, 07/06/2021 9:35 AM 07/07/19 22 Venous) CDT 10:17 AM CDT Sae Chavarria M.D., BarbaraM., M.S. LAB BLOOD ADD-O N Performing Organization Address City/[facility]/ZIP Code Phon e Number [facility] - [address] [address] Laboratories-[facility] 200 [facility] Bicarbonate (07/06/2021 9:35 AM CDT) P athologist [...] City/State/ZIP Code Phon e Number [facility] - [address] [place] [address] 05 [place] [address] Laboratories-[address] (ABNORMAL) CBC with Differential, Blood (07/06/2021 9:35 AM CDT) Patholo gist Method Time Signature Hemoglobin 11.2 (L) 13.2 [...] LAB BLOOD ADD-O N Performing Organization Address [facility] Phon e Number [facility] [address] (ABNORMAL) BUN (Blood Urea Nitrogen) (07/06/2021 [...] LAB BLOOD ADD-O N Performing Organization Address City/[facility] Phon e Number [facility] 200 [place], [place] [address] [place] [address] AST (Aspartate Aminotransferase) (07/06/2021 9:35 AM CDT) [...] City/State/ZIP Code Phon e Number [facility] - [address] [place] [address] [facility] [address] Glucose, Fasting (07/06/2021 9:35 AM CDT) [...] BLOOD NON A DD-ON Performing Organization Address City/[facility] Phon e Number [facility] - [address] Sodium (07/06/2021 9:35 AM CDT) athologist Signature Sodium, S 140 135 - 145 07/06/2021 DTL mmol/L 10:49 AM CDT Specimen Anatomical Collection Method Collection Time Receive d Time (Source) Location / / Volume Laterality Blood (Blood, 07/06/2021 9:35 AM 07/07/19 22 Venous) CDT 10:17 AM CDT Sae Chavarria M.D., Kam, M.S. LAB BLOOD ADD-O N Performing Organization Address City/[facility]/ZIP [facility] Phon e Number [facility] - [address] [place], [place] [address] [facility] [place] [address] [facility] [address] (ABNORMAL) S-TSH (Thyroid-Stimulating Hormone - Sensitive) (07/06/2021 9:34 AM CDT) athologist Signature TSH, Sensitive 4.4 (H) 0.3 - 4.2 07/06/2021 DTL mIU/L 10:47 AM CDT Specimen Anatomical Collection Method Collection Time Receive d Time (Source) Location / / Volume Laterality Blood (Blood, 07/06/2021 9:34 AM 07/07/19 22 Venous) CDT 10:17 AM CDT Sae Chavarria M.D., C.M., M.S. LAB BLOOD ADD-O N Performing Organization Address City/State/ZIP Code Phon e Number [facility] - [address] [place] [address] [facility] [place] [address] Laboratories-[address] Lipid Panel (07/06/2021 9:34 AM CDT) athologist Signature Cholesterol, 191 mg/dL 07/06/2021 DTL [...] LAB BLOOD ADD-O N Performing Organization Address [facility] Phon e Number [facility] - [address] (ABNORMAL) Creatinine with Estimated GFR (07/06/2021 9:34 AM CDT) Analysis Performed At [facility] Time Signature Creatinine 1.70 (H) 0.74 - 07/06/2021 DTL 1.35 mg/dL 10:47 AM CDT eGFR-Non 36 (L) >=60 07/06/2021 DTL Black/ mL/min/BSA 10:47 AM CDT German Comment: ----ADDITIONAL INFORMATION---- Estimated GFR calculated using [...] LAB BLOOD ADD-O N Performing Organization Address [facility] Phon e Number [facility] - [address] documented in this encounter Visit Diagnoses Diagnosis Cardiomyopathy Dilated (HCC) - Primary Cardiomyopathy Dilated (HCC) documented in this encounter Care Teams Dry Box Tender Relationship Specialty Start Date End Date Elsewhere, Pcp PCP - General Internal Medicine 05/29/19 documented as of this encounter
--- OUTSIDE RECORDS SUMMARY | 2022-01-16 15:54 | XMS_ITS | Encounter Summary ---
:1935 Author Organization [facility] Address [address] [place] [address] Care Team Providers Name Role Phone Elsewhere, Pcp Primary Care Provider Unavailable Reason for Visit Outpatient (Routine) - Closed Specialty Diagnoses / Procedures Referred By Contact Refer red To Contact Hematology Diagnoses Gammopathy Monoclonal Johnu Sae Chavarria, [facility] Procedures Hematology - Monoclonal Gammopathy (MGUS)/ Multiple Myeloma/Amyloidosis eConsult Bryan, CZahida., M.S. [address] [place] [phone] Referral ID Status Reason Start Date Expiration Date Visits Requ ested Visits Authorized [id number] Closed 12/08/2020 12/08/2021 1 1 Encounter Details Date Type Department Care Team Description 12/15/2020 Internal E-Consult Division of Diana Vivar Gammop athy Hematology in M.D. [place], [place] [address] [place] [address] [place] [phone] Social History Tobacco Use Types Packs/Day Years [...] or relatives? How often do you attend christian or More than 4 times per year 09/25/2021 confucianism services? Do you belong to any clubs or Yes 09/25/2021 organizations such as christian groups, unions, fraternal or athletic groups, or [...] PM CDT documented as of this encounter Consult Notes Diana Vivar M.D. - 12/16/2020 11:30 AM CDT SUBJECTIVE Ordering Physician: Sae Chavarria M.D., C.M., M.S. The patient was not personally interviewed or examined. The history and examination findings are based on the clinical documentation provided and/or discussed with a physician or provider who had personally interviewed and examined the patient. Time spent: Five minutes or more of medical review. Chief Complaint / Reason for Visit A consult was placed regarding Nii Franz, a 85 y.o. male. 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 History of Present Illness This is an 85-year-old male who is being worked up in Cardiology for dilated cardiomyopathy. His ejection fraction is 38%. 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 The Mproteins are too small to measure. [place] free light chain 1.88; lambda 2.91; kappa/lambda free lightchain ratio 0.6460. Other labs of note include: Hemoglobin 10.7 with MCV 90.7, platelets and white count are normal. Creatinine 1.74. Looking back, the hemoglobin dropped from 11.9-10.7 over the same interval that the creatinine fermín from 1.20 to 1.74. The following portions of the patient's history were reviewed and updated as appropriate: allergies, current medications, family history, medical history, social history, surgical history and problem list. OBJECTIVE ASSESSMENT / PLAN #1 Gammopathy Biclonal The M protein is tiny and is unlikely to be associated with multiple myeloma, Waldenstrom's macroglobulinemia or another hematologic malignancy. It is difficult to rule out amyloidosis. In reading [facility] Cardiology notes, I get the impression that suspicion of cardiac amyloidosis is low and they areawaiting the echo images before they decide if they want to pursue further workup to rule out amyloid. A fat aspirate would probably be reasonable. At this juncture, I do not think he needs a bone marrow biopsy unless further workup increases there index of suspicion for amyloidosis. #2 Anemia He had some mild anemia at baseline that has worsened over the last 6 months. Over the same timeframe his creatinine has increased significantly. This is almost certainly anemia of renal insufficiency.However would be reasonable to check ferritin, B12 and a peripheral smear to ensure that we are not missing any other cause. This is unlikely to be related to his small monoclonal protein. documented in this encounter Plan of Treatment Not on filedocumented as of this encounter Visit Diagnoses Diagnosis Gammopathy Monoclonal documented in this encounter Care Teams Plant Changer Relationship Specialty Start Date End Date Elsewhere, Pcp PCP - General Internal Medicine 05/29/19 documented as of this encounter
--- OUTSIDE RECORDS SUMMARY | 2022-01-16 15:55 | XMS_ITS | Encounter Summary ---
:1935 Author Organization [facility] Address [address] [place] [address] Care Team Providers Name Role Phone Elsewhere, Pcp Primary Care Provider Unavailable Reason for Visit Reason Comments Med Refill Encounter Details Date Type Department Care Team Description 02/19/2020 Refill Department of Cardiovascular Min er, Brittny Andreson R.N. Med Refill Medicine in [place], (Work ) [place] [address] [place] [phone] Social History Tobacco Use Types Packs/Day [...] or relatives? How often do you attend zoroastrianism or More than 4 times per year 09/25/2021 caodaism services? Do you belong to any clubs or Yes 09/25/2021 organizations such as zoroastrianism groups, unions, fraternal or athletic groups, or school groups? How often do you attend meetings of the More than 4 times fausto olivares year 09/25/2021 clubs or organizations you belong [...] place to sleep or slept in a [place] [facility] [place] (including now)? Education Answer Date Recorded What [...] on filedocumented in this encounter Care Teams Screw Cutter Relationship Specialty Start Date End Date Elsewhere, Pcp PCP - General Internal Medicine 05/29/19 documented as of this encounter
--- OUTSIDE RECORDS SUMMARY | 2022-01-16 15:55 | XMS_ITS | Encounter Summary ---
:1935 Author Organization [facility] Address [address] [place] [address] Care Team Providers Name Role Phone Elsewhere, Pcp Primary Care Provider Unavailable Reason for Visit Reason Comments Question about labs Phone Contact Encounter Details Date Type Department Care Team Description 06/16/2020 Clinical Daria Pedraza on about Communication Center for teresa Faria; Phone Transplantation and M.D. Contact Clinical Regeneration [address] [facility] in [facility] [phone] [place] [address] [place], [place] (Work) [phone] Social History Tobacco Use Types Packs/Day Years [...] or relatives? How often do you attend sabianist or More than 4 times per year 09/25/2021 voodoo services? Do you belong to any clubs or Yes 09/25/2021 organizations such as sabianist groups, unions, fraternal or athletic groups, or [...] this encounter Miscellaneous Notes Telephone Encounter - Brittny Barrett R.N. - 06/16/2020 4:30 PM CDT SUBJECTIVE CHIEF COMPLAINT / REASON FOR CALL Question about labs and Phone Contact Information Discussed and Mrs. Franz were contacted. It appears when Mr. Franz went into the [facility] labs on Monday, 06/15, he had other labs drawn and they did not realize he hadn't had the [facility] labs collected. They are calling to inform the nurse of that issue. A lab order was re-faxed to [facility],and Mr. Franz will go in on 06/17 to have labs collected. They were reminded that [facility] will not have results most likely for 24 hours after the labs were drawn. PLAN Patient advised he is able to have labs drawn on 06/17. Next phone call: 06/18/20 Disposition/Recommendation: recommended continue engagement in self-management activities Information/Education: patient/caller able to teach back Caller agreeable to plan of care: yes The following references were used: nursing clinical judgement Telephone Encounter - Araceli Armenta - 06/16/2020 1:41 PM CDT SUBJECTIVE CHIEF COMPLAINT / REASON FOR CALL Question about labs Name of caller/relationship to the patient: - Shira Patient expects communication via portal: No. Phone number: [phone] Request topic and what needs to be addressed? Mrs. Franz would like to discuss labs with Zarina Barrett. She is having trouble accessing them on the [employer] site. documented in this encounter Plan of Treatment Not on filedocumented as of this encounter Visit Diagnoses Not on filedocumented in this encounter Care Teams Assistant Produce Manager Relationship Specialty Start Date End Date Elsewhere, Pcp PCP - General Internal Medicine 05/29/19 documented as of this encounter
--- OUTSIDE RECORDS SUMMARY | 2022-01-16 15:55 | XMS_ITS | Encounter Summary ---
:1935 Author Organization [facility] Address [address] [place] [address] Care Team Providers Name Role Phone Elsewhere, Pcp Primary Care Provider Unavailable Reason for Visit Reason Comments Care Coordination Medication Titration Encounter Details Date Type Department Care Team Description 04/14/2020 Patient Outreach Department of Zulma Kurtz [facility] Co ordination Cardiovascular C, R.NCarey (Medication Medicine in [place], Titra tion ) [place] (Work) [address] [place] [phone] Social History Tobacco Use Types Packs/Day Years [...] or relatives? How often do you attend mandaen or More than 4 times per year 09/25/2021 congregation services? Do you belong to any clubs or Yes 09/25/2021 organizations such as mandaen groups, unions, fraternal or athletic groups, or [...] place to sleep or slept in a jail (including now)? Education Answer Date Recorded What is the highest level of school Bachelor's degree (e.g., BA, AB, 05/16/2019 you have completed or the highest BS) degree you have received? Sex Assigned at Date Recorded Male 08/14/2017 2:01 PM CDT documented as of this encounter Progress Notes Zulma Kurtz R.N. - 04/14/2020 10:06 AM CST CHIEF COMPLAINT / REASON FOR CALL Care Coordination (Medication Titration ) INFORMATION DISCUSSED Mr and Mrs Nii Franz contacted today for Heart Failure Medication Titration. Provider: Paul Car MD Patient is currently taking Entresto at 49-51 mg twice a day. Vital signs reviewed. BP: 131/58, 102/55, HR: 55-60 bpm Weight: 180 pounds Current lab testing completed at [facility] in [place], [place] on 04/13/20 Results: sodium 137; potassium 4.4, creatinine 1.37, BUN 20. Previous lab testing completed at [facility] in [place], [place] on 03/16/20 Results: sodium 139; potassium 4.4, creatinine 1.35, BUN 17. Previous lab testing completed at [place], [place] on 02/04/20 Results: sodium 142; potassium 4.6, creatinine 1.34, BUN 25. Current symptoms reported by patient include None. Mr. Franz reports he is feeling better since increasing the dose of Entresto to the current dose. Based on reported patient vital signs and patient symptoms, recommend patient does titrate medication(s) per protocol. Patient is willing to implement recommended plan. Heart Failure Medication Titration Plan Patient instructed to continue Entresto at 73-77 mg, (one 24-26 mg tab and one 49-51 mg tab) twice aday. Pharmacy not updated with medication dosing change. Next Lab Due 04/28/20 Next Call Due 04/29/20 Disposition/Recommendation: protocol orders and recommended continue engagement in self-management activities Education: patient/caller able to teach back Caller agreeable to plan of care: yes The following references were used: Nursing clinical judgement, [facility] Protocols-Heart Failure Medication Titration Order Set ([id number]) and Heart Failure: Medication Dosing Adjustment Protocol Reference Document, ([id number]). /[employer] documented in this encounter Miscellaneous Notes Addendum Note - Zulma Kurtz, R.N. - 04/14/2020 10:06 AM GM/[employer] Addended by: ZULMA KURTZ on: 04/14/2020 02:28 PM Modules accepted: Orders, SmartSet /[employer] documented in this encounter Plan of Treatment Not on filedocumented as of this encounter Visit Diagnoses Not on filedocumented in this encounter Care Teams Fisher Gill Net Relationship Specialty Start Date End Date Elsewhere, Pcp PCP - General Internal Medicine 05/29/19 documented as of this encounter
--- OUTSIDE RECORDS SUMMARY | 2022-01-16 15:55 | XMS_ITS | Encounter Summary ---
:1935 Author Organization [facility] Address [address] [place] [address] Care Team Providers Name Role Phone Elsewhere, Pcp Primary Care Provider Unavailable Reason for Visit Reason Comments Care Coordination Medication titration Encounter Details Date Type Department Care Team Description 03/31/2020 Patient Outreach Department of Brittny Barrett [facility] Co ordination Cardiovascular C, R.NCarey (Medication Medicine in [place], titra tion ) [place] (Work) [address] [place] [phone] Social History Tobacco Use Types Packs/Day Years [...] or relatives? How often do you attend hoahaoism or More than 4 times per year 09/25/2021 sikh services? Do you belong to any clubs or Yes 09/25/2021 organizations such as hoahaoism groups, unions, fraternal or athletic groups, or [...] documented as of this encounter Progress Notes Brittny Barrett R.N. - 03/31/2020 10:41 AM CST CHIEF COMPLAINT / REASON FOR CALL Care Coordination (Medication titration ) INFORMATION DISCUSSED Mr and Mrs Nii Franz contacted today for Heart Failure Medication Titration. Provider: Paul Car MD Patient is currently taking Entresto at 24-26 mg twice a day. Vital signs reviewed. BP: 123/62, 79/40 HR: 55-67 bpm Weight: 179.9 pounds Current lab testing completed at [facility] in [place], [place] on 03/16/20 Results: sodium 139; potassium 4.4, creatinine 1.35, BUN 17. Previous lab testing completed at [facility] in [place], [place] on 02/04/20 Results: sodium 142; potassium 4.6, creatinine 1.34, BUN 25. Current symptoms reported by patient include Dizziness with quick position changes. Mr. Franz was instructed to make position changes slowly. Based on reported patient vital signs and patient symptoms, recommend patient does titrate medication(s) per protocol. Patient is willing to implement recommended plan. Heart Failure Medication Titration Plan Patient instructed to continue Entresto at 49-51 mg, (two 24-26 mg tabs) twice a day. Pharmacy updated with medication dosing change. Next Lab Due 04/14/20 Next Call Due 04/15/20 Disposition/Recommendation: protocol orders and recommended continue engagement in self-management activities Education: patient/caller able to teach back Caller agreeable to plan of care: yes The following references were used: Nursing clinical judgement, [facility] Protocols-Heart Failure Medication Titration Order Set ([id number]) and Heart Failure: Medication Dosing Adjustment Protocol Reference Document, ([id number]). L EQUIPMENT MECHANIC documented in this encounter Plan of Treatment Not on filedocumented as of this encounter Visit Diagnoses Not on filedocumented in this encounter Care Teams Value Analysis Coordinator Relationship Specialty Start Date End Date Elsewhere, Pcp PCP - General Internal Medicine 05/29/19 documented as of this encounter
--- OUTSIDE RECORDS SUMMARY | 2022-01-16 15:55 | XMS_ITS | Encounter Summary ---
:[address] [facility] Address [address] [place] [address] Care Team Providers Name Role Phone Elsewhere, Pcp Primary Care Provider Unavailable Reason for Visit Reason Comments Medication Titration spironolactone lab surveilla nce Encounter Details Date Type Department Care Team Description 06/11/2020 Patient Outreach Department of Brittny Barrett ion Cardiovascular C, R.N. Titration Medicine in [place], (spir onolactone lab [place] ([facility]) surveillance) [address] [place] [address] Social History Tobacco Use Types Packs/Day Years [...] or relatives? How often do you attend oriental orthodox or More than 4 times per year 09/25/2021 faith services? Do you belong to any clubs or Yes 09/25/2021 organizations such as oriental orthodox groups, unions, fraternal or athletic groups, or [...] place to sleep or slept in a [facility] (including now)? Education Answer Date Recorded What is the highest level of school Bachelor's degree (e.g., BA, AB, 05/16/2019 you have completed or the highest BS) degree you have received? Sex Assigned at Date Recorded Male 08/14/2017 2:01 PM CDT documented as of this encounter Progress Notes Brittny Barrett R.N. - 06/11/2020 3:06 PM CDT CHIEF COMPLAINT / REASON FOR CALL Medication Titration (spironolactone lab surveillance) INFORMATION DISCUSSED Mr and Mrs Nii rFanz contacted today for Heart Failure spironolactone lab surveillance. Provider: Paul Car MD Patient is currently taking 12.5 mg spironolactone once a day. Vital signs reviewed. BP: 130/57 HR: 57 bpm Weight: 181 pounds Current lab testing completed at [facility] in [place], [place] on 06/09/20 Results: sodium 141; potassium 4.4, creatinine 1.64, BUN 25. It is noted that the creatinine result bumped up greater than 20% and a provider will be contacted for a recommendation. Previous lab testing completed on 05/20/20 Results: sodium 141; potassium 4.4, creatinine 1.31, BUN 23. Previous lab testing completed on 04/28/20 Results: sodium 139; potassium 4.1, creatinine 1.34, BUN 23. Previous lab testing completed on 04/13/20 Results: sodium 137; potassium 4.4, creatinine 1.37, BUN 20. Previous lab testing completed on 03/16/20 Results: sodium 139; potassium 4.4, creatinine 1.35, BUN 17. Previous lab testing completed on 02/04/20 Results: sodium 142; potassium 4.6, creatinine 1.34, BUN 25. Current symptoms reported by patient include None. Based on reported patient vital signs and patient symptoms, recommend patient does not titrate medication(s) per protocol. Patient is willing to implement recommended plan. Heart Failure Medication Titration Plan Sae Chavarria MD was contacted in the absence of Dr. Hickey, Patient instructed to hold the dose of spironolactone, effective 06/12/20.and repeat labs early next week Pharmacy previously updated with medication dosing change. Next Lab Due 06/15/20 Next Call Due 06/16/20 Disposition/Recommendation: protocol orders and recommended continue engagement in self-management activities Education: patient/caller able to teach back Caller agreeable to plan of care: yes The following references were used: Nursing clinical judgement, [facility] Protocols-Heart Failure Medication Titration Order Set ([id number]) and Heart Failure: Medication Dosing Adjustment Protocol Reference Document, ([id number]). documented in this encounter Plan of Treatment Not on filedocumented as of this encounter Visit Diagnoses Not on filedocumented in this encounter Care Teams Debt Management Counselor Relationship Specialty Start Date End Date Elsewhere, Pcp PCP - General Internal Medicine 05/29/19 documented as of this encounter
--- OUTSIDE RECORDS SUMMARY | 2022-01-16 15:55 | XMS_ITS | Encounter Summary ---
:1935 Author Organization [facility] Address [address] [place] [address] Care Team Providers Name Role Phone Elsewhere, Pcp Primary Care Provider Unavailable Encounter Details Date Type Department Care Team Description 11/04/2020 Hospital Encounter Department of [place]ou Cardiomy opathy Dilated (HCC); Laboratory Medicine [place], Flutter Atrial (HCC) and Pathology, Sae Reyes M.D., [place], in [place], [place], [address] [place], [place] [address] [place] [phone] [place], [place] [phone] (Work) [phone] Social History Tobacco Use Types Packs/Day Years [...] or relatives? How often do you attend shinto or More than 4 times per year 09/25/2021 denominational services? Do you belong to any clubs or Yes 09/25/2021 organizations such as shinto groups, unions, fraternal or athletic groups, or [...] Name Priority Date/Time Associated Diagnosis Comme nts MONOCLONAL Routine 11/04/2020 12:55 Cardiomyopathy Dilated R esults for this GAMMOPATHY PM CDT (HCC) procedure are in DIAGNOSTIC, S Flutter Atrial (HCC) the re sults section. TROPONIN T, 5TH Routine 11/04/2020 12:55 Cardiomyopathy Dilate d Results for this GEN, P PM CDT (HCC) procedure are in Flutter Atrial (HCC) the res ults section. documented in this encounter Results (ABNORMAL) Troponin T, 5th Generation (11/04/2020 12:55 PM CDT) P athologist Signature Troponin T, 5th 16 (H) <=15 ng/L 11/04/2020 DTL gen 3:34 PM CDT Specimen Anatomical Collection Method Collection Time Receive d Time (Source) Location / / Volume Laterality Blood (Blood, 11/04/2020 12:55 11/04/2020 2:13 Venous) PM CDT PM CDT Sae Chavarria M.D., C.M., M.S. LAB BLOOD ADD-O N Performing Organization Address City/State/ZIP Code Phon e Number [facility] - [address] [place], [place] [address] [facility] [place] [place] [address] Laboratories-[facility] [address] (ABNORMAL) Monoclonal Gammopathy Diagnostic (11/04/2020 12:55 PM CDT) Patholo gist Method Time Signature Therapeutic No 11/05/2020 [facility] Antibody 6:09 AM CDT Administered? Total Protein, 6.0 (L) 6.3 - 7.9 11/05/2020 [facility] S g/dL 7:25 AM CDT [place] Free 1.88 0.3300 - 11/04/2020 [facility] Light Chain, S 1.94 mg/dL 7:22 PM CDT Lambda Free 2.91 (H) 0.5700 - 11/04/2020 [facility] Light Chain, S 2.63 mg/dL 7:22 PM CDT [place]/Lambda 0.6460 0.2600 - 11/04/2020 [facility] FLC Ratio 1.65 7:22 PM CDT Albumin 3.2 (L) 3.4 - 4.7 11/05/2020 [facility] g/dL 4:32 PM CDT Alpha-1 0.2 0.1 - 0.3 11/05/2020 [facility] Globulin g/dL 4:32 PM CDT Alpha-2 0.9 0.6 - 1.0 11/05/2020 [facility] Globulin g/dL 4:32 PM CDT Beta-Globulin 0.8 0.7 - 1.2 11/05/2020 [facility] g/dL 4:32 PM CDT Gamma-Globulin 0.9 0.6 - 1.6 11/05/2020 [facility] g/dL 4:32 PM CDT A/G Ratio 1.15 11/05/2020 [facility] 4:32 PM CDT Impression 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 [facility] 4:32 PM CDT See Isotype. Flag, Positive (A) Negative 11/06/2020 [facility] M-protein 3:59 PM CDT Isotype M-protein Biclonal 11/06/2020 [facility] Isotype Gammopathy 3:59 PM CDT MALDI-TOF MS (small monoclonal IgG lambda plus small monoclonal IgM lambda). ~Suggest repeat testing in 6-12 months if clinically indicated. Comment: ----ADDITIONAL INFORMATION---- The submitted sample was assayed by five separate immunopurifications for IgG, IgA, IgM, kappa and lambda. ??The r esult reflects the findings of either no monoclonal protein detected or those monoclonal immunoglobulins that were detected. This test was developed and its performa nce characteristics determined by [facility] in a manner consistent with CLIA requirements. This test has not been cleared or approved by the [place] d and Drug Administration. Specimen Anatomical Collection Method Collection Time Receive d Time (Source) Location / / Volume Laterality Blood (Blood, 11/04/2020 12:55 11/04/2020 6:08 Venous) PM CDT PM CDT Narrative [facility] - 11/06/2020 3:59 PM CDT Specimen Information: Specimen ID: [id number] Specimen Type: Blood Specimen Collection Start Date: 11/05/19 12:55 PM Specimen Received Date: 11/04/2020 ??6:0 8 PM Specimen ID: [id number] Specimen Type: Blood Specimen Collection Start Date: 11/05/19 12:55 PM Specimen Received Date: 11/05/2020 ??6:0 9 AM Sae Chavarria M.D., C.M., M.S. LAB BLOOD ADD-O N Performing Organization Address City/State/ZIP Code Phon e Number [facility] [address] [place] [address] SUPPORT CENTER [facility] [place] [address] Laboratory Medicine and Pathology [address] [place] documented in this encounter Visit Diagnoses Diagnosis Cardiomyopathy Dilated (HCC) Flutter Atrial (HCC) documented in this encounter Care Teams Human Geography Instructor Relationship Specialty Start Date End Date Elsewhere, Pcp PCP - General Internal Medicine 05/29/19 documented as of this encounter
--- OUTSIDE RECORDS SUMMARY | 2022-01-16 15:55 | XMS_ITS | Encounter Summary ---
:1935 Author Organization [facility] Address [address] [place] [address] Care Team Providers Name Role Phone Elsewhere, Pcp Primary Care Provider Unavailable Encounter Details Date Type Department Care Team Description 02/18/2020 Orders Only Pharmacy Prior Auth Roslyn Burris I. [phone] Social History Tobacco Use Types Packs/Day Years [...] or relatives? How often do you attend confucianist or More than 4 times per year 09/25/2021 christianity services? Do you belong to any clubs or Yes 09/25/2021 organizations such as confucianist groups, unions, fraternal or athletic groups, or [...] on filedocumented in this encounter Care Teams Carbide Die Maker Relationship Specialty Start Date End Date Elsewhere, Pcp PCP - General Internal Medicine 05/29/19 documented as of this encounter
--- OUTSIDE RECORDS SUMMARY | 2022-01-16 15:55 | XMS_ITS | Encounter Summary ---
:1935 Author Organization [facility] Address [address] [place] [address] Care Team Providers Name Role Phone Elsewhere, Pcp Primary Care Provider Unavailable Encounter Details Date Type Department Care Team Description 02/17/2020 Orders Only Pharmacy Prior Auth RO Elsewhere, Pcp [phone] Social History Tobacco Use Types Packs/Day Years [...] or relatives? How often do you attend rastafari or More than 4 times per year 09/25/2021 anglican services? Do you belong to any clubs or Yes 09/25/2021 organizations such as rastafari groups, unions, fraternal or athletic groups, or [...] on filedocumented in this encounter Care Teams Foreign Broadcast Specialist Relationship Specialty Start Date End Date Elsewhere, Pcp PCP - General Internal Medicine 05/29/19 documented as of this encounter
--- OUTSIDE RECORDS SUMMARY | 2022-01-16 15:55 | XMS_ITS | Encounter Summary ---
:1935 Author Organization [facility] Address [address] [place] [address] Care Team Providers Name Role Phone Elsewhere, Pcp Primary Care Provider Unavailable Reason for Visit Reason Comments Med Management Encounter Details Date Type Department Care Team Description 02/12/2020 Documentation Department of Cardiovascular Aby Hooper, Med Management Medicine in [facility] [address] [place] [phone] Social History Tobacco Use Types Packs/Day [...] or relatives? How often do you attend baptist or More than 4 times per year 09/25/2021 catholic services? Do you belong to any clubs or Yes 09/25/2021 organizations such as baptist groups, unions, fraternal or athletic groups, or [...] place to sleep or slept in a nursing home (including now)? Education Answer Date Recorded What is the highest level of school Bachelor's degree (e.g., BA, AB, 05/16/2019 you have completed or the highest BS) degree you have received? Sex Assigned at Date Recorded Male 08/14/2017 2:01 PM CDT documented as of this encounter Progress Notes Bia Hooper M.B.B.S. - 02/12/2020 8:34 AM CST Heart Failure Medication Titration Orders Heart Failure Medication Titration Orders To be managed by: Nurse via protocol BP Titration Parameter: Less than 200/110 and greater than 80/40 mmHg HR Titration Parameter: Greater than or equal to 50 beats/minute 1st Medication to Titrate Type of Medication: Neprilysin Inhibitor/ARB Neprilysin Inhibitor / ARB: Sacrubitril/Valsartan (Entresto) Neprilysin Inhibitor/ARB (Entresto) Starting Dose: 24-26 mg PO twice daily Titrate/Increase Dose by: 24-26 mg PO twice daily every 2 weeks Neprilysin Inhibitor/ARB (Entresto) Target Dose: 97-103 mg PO twice daily Neprilysin Inhibitor/ARB (Entresto) Labs to Monitor: Sodium, Potassium, Creatinine and BUN Neprilysin Inhibitor/ARB (Entresto) # of days to order after initiation or change in medication dosin week 2nd Medication to Titrate Type of Medication: Aldosterone Antagonists Aldosterone Inhibitors: Spironolactone (Aldactone) Aldosterone Inhibitor (Aldactone/Inspra) Starting Dose: 25 mg PO daily Titrate/Increase dose by: 12.5 mg PO daily in 2 weeks Aldosterone Inhibitor (Aldactone/Inspra) Target Dose: 50 mg PO daily 3rd Medication to Titrate Type of Medication: Beta Blockers Beta Yulisa: Metoprolol succinate (Toprol XL) Metoprolol Succinate (Toprol XL) Starting Dose: Other 150 Titrate/Increase dose by: 12.5 mg PO daily in 2 weeks, then 25 mg PO daily every 2 weeks Metoprolol Succinate (Toprol XL) Target Dose: 200 mg PO daily Metoprolol Succinate (Toprol XL) Labs to Monitor: None NICAL ENGINEER documented in this encounter Plan of Treatment Not on filedocumented as of this encounter Visit Diagnoses Not on filedocumented in this encounter Care Teams [employer] Teacher Relationship Specialty Start Date End Date Elsewhere, Pcp PCP - General Internal Medicine 05/29/19 documented as of this encounter
--- OUTSIDE RECORDS SUMMARY | 2022-01-16 15:55 | XMS_ITS | Encounter Summary ---
:1935 Author Organization [facility] Address [address] [place] [address] Care Team Providers Name Role Phone Elsewhere, Pcp Primary Care Provider Unavailable Encounter Details Date Type Department Care Team Description 02/12/2020 Episode Changes Department of Highland HolidayBrittny, Cardiovascular Medicine in [place], [place] [address] [place] [phone] Social History Tobacco Use Types Packs/Day [...] place to sleep or slept in a care home (including now)? Education Answer Date Recorded [...] on filedocumented in this encounter Care Teams Computer Support Technician Relationship Specialty Start Date End Date Elsewhere, Pcp PCP - General Internal Medicine 05/29/19 documented as of this encounter
--- OUTSIDE RECORDS SUMMARY | 2022-01-16 15:55 | XMS_ITS | Encounter Summary ---
:1935 Author Organization [facility] Address [address] [place] [address] Care Team Providers Name Role Phone Elsewhere, Pcp Primary Care Provider Unavailable Reason for Visit Reason Comments Medication Titration Toprol XL Encounter Details Date Type Department Care Team Description 06/25/2020 Patient Outreach Department of Brittny Barrett ion Cardiovascular C, R.N. Titration (Toprol Medicine in [place], XL) [place] ([facility]) [address] [place] [address] Social History Tobacco Use Types Packs/Day Years [...] or relatives? How often do you attend anglican or More than 4 times per year 09/25/2021 temple services? Do you belong to any clubs or Yes 09/25/2021 organizations such as anglican groups, unions, fraternal or athletic groups, or [...] encounter Progress Notes Brittny Barrett R.N. - 06/25/2020 2:39 PM CDT CHIEF COMPLAINT / REASON FOR CALL Medication Titration (Toprol XL) INFORMATION DISCUSSED Mr and Mrs Nii Franz contacted today for Heart Failure Medication Titration with spironolactone. Provider: Paul Car MD Patient is not currently taking spironolactone and taking Toprol XL at 75 mg, twice a day. Vital signs reviewed. BP: 121/59, 122/63, 114/60 HR: 61, 54 bpm Weight: 181 pounds Lab testing completed at [facility] in [place], [place] on 06/17/2020 - Results: sodium 139; potassium 4.1, creatinine 1.55, BUN 28. As previously noted, the patients creatinine came down after stopping the spironolactone, but it is not back to baseline. Current symptoms reported by patient include Dizziness or orthostatic hypotension, the sensation clears after several seconds. The patient finds the sensation tolerable. Based on reported patient vital signs and patient symptoms, recommend patient does titrate medication(s) per protocol. Patient is willing to implement recommended plan. Heart Failure Medication Titration Plan Patient instructed to increase Toprol XL to 175 mg, effective this evening. The patient takes the Toprol XL as a twice a day medication. He will continue taking Toprol XL at 75 mg in the AM and 100 mg in the PM. Pharmacy updated with medication dosing change. Next Lab Due No labs with this medication Next Call Due 07/10/20 Disposition/Recommendation: protocol orders and recommended continue engagement in self-management activities Education: patient/caller able to teach back Caller agreeable to plan of care: yes The following references were used: Nursing clinical judgement, [facility] Protocols-Heart Failure Medication Titration Order Set ([id number]) and Heart Failure: Medication Dosing Adjustment Protocol Reference Document, ([id number]). documented in this encounter Plan of Treatment Not on filedocumented as of this encounter Visit Diagnoses Not on filedocumented in this encounter Care Teams Lugger Relationship Specialty Start Date End Date Elsewhere, Pcp PCP - General Internal Medicine 05/29/19 documented as of this encounter
--- OUTSIDE RECORDS SUMMARY | 2022-01-16 15:55 | XMS_ITS | Encounter Summary ---
:1935 Author Organization [facility] Address [address] [place] [address] Care Team Providers Name Role Phone Elsewhere, Pcp Primary Care Provider Unavailable Reason for Visit Reason Comments Care Coordination Lab Monitoring 06/17 labs completed Medication Titration Spironolactone Encounter Details Date Type Department Care Team Description 06/18/2020 Patient Outreach Department of Louisa Ahumada Coor dination; Cardiovascular Medicine M, RCareyNCarey Lab Monitoring in [facility] lizett [phone] (06/[address] (Work) completed); [place], [place] Medication [id number] Titration [phone] (Spironolactone ) Social History Tobacco Use Types Packs/Day Years [...] or relatives? How often do you attend amish or More than 4 times per year 09/25/2021 evangelical services? Do you belong to any clubs or Yes 09/25/2021 organizations such as amish groups, unions, fraternal or athletic groups, or [...] place to sleep or slept in a custodial (including now)? Education Answer Date Recorded What is the highest level of school Bachelor's degree (e.g., BA, AB, 05/16/2019 you have completed or the highest BS) degree you have received? Sex Assigned at Date Recorded Male 08/14/2017 2:01 PM CDT documented as of this encounter Progress Notes Louisa Ahumada R.N. - 06/18/2020 2:53 PM CDT CHIEF COMPLAINT / REASON FOR CALL Care Coordination, Lab Monitoring (06/17 labs completed), and Medication Titration (Spironolactone) INFORMATION DISCUSSED Nii Paul Franz contacted today for Heart Failure Medication Titration. Provider: Paul Hickey M.D. Patient is currently taking no spironolactone since -- 06/12, stopped due to rise in creatinine Vital signs reviewed. 06/12 to 06/18- Blood pressure: high: 125/66 Low 100/56 Pulse: range: 55-58 bpm Weight: 181 pounds Lab testing completed at [facility] in [place], [place] on 06/17/2020 - Results: sodium 139; potassium 4.1, creatinine 1.55, BUN 28. Compared to prior results on 06/09/20 - sodium 141; potassium 4.4, creatinine 1.64, BUN 25. Creatinine has improved, but has not returned to baseline 1.31-1.37 range that was maintained duringEntresto titration. ?? Current symptoms reported by patient include Orthostatic hypotension - tolerable at this time. Lightheadedness upon arising was present on target dose Entresto, but worsened when he started spironolactone. He feels the amount of lightheadedness present now is improved off of spironolactone and feels it is tolerable. Heart Failure Medication Titration Plan Patient instructed to continue all medications at current doses. Remain off of spironolactone at this time. Reviewed the plan of care for titration of metoprolol succinate and verified his current dosing is 75 mg twice daily. Mr. Franz has been on this amount since fall 2019. Reviewed the purpose of metoprolol succinate and the slow dose increase process to Next Call Due: 06/24/2020 Disposition/Recommendation: notified provider and awaiting recommendations and recommended continue engagement in self-management activities Education: patient/caller able to teach back Caller agreeable to plan of care: yes The following references were used: Nursing clinical judgement, [facility] Protocols-Heart Failure Medication Titration Order Set ([id number]) and Heart Failure: Medication Dosing Adjustment Protocol Reference Document, ([id number]). Louisa Ahumada R.N. - 06/18/2020 2:53 PM CDT Medication Management ?? Goal or summary: Review labs and obtain approval for below plan in the absence of Paul Hickey M.D. ?? Medication/dose: Spironolactone 12.5 mg daily was stopped due to significant rise in Creatinine. Last dose was 06/11. ?? Recent change: Labs repeated 06/17: Results: sodium 139; potassium 4.1, creatinine 1.55, BUN 28. Compared to prior results on 06/09/20 - sodium 141; potassium 4.4, creatinine 1.64, BUN 25. Creatinine has improved, but has not returned to baseline 1.31- 1.37 range that was maintained during Entresto titration. ? New symptom: He feels better, specifically feels less orthostatic lightheadedness off of spironolactone, no new issues present. ?? Additional comments: Recommend he remains off of spironolactone. Discussed moving forward with Toprol XL titration and he would like to visit with his primary care provider on Monday prior to makingmore changes. Then follow up by phone with Zarina next week to discuss next steps. >> Agree or anything different you would advise doing at this time? Christopher Santiago M.D. - 06/18/2020 2:53 PM CDT I agree with holding the aldactone for now Thanks documented in this encounter Plan of Treatment Not on filedocumented as of this encounter Visit Diagnoses Not on filedocumented in this encounter Care Teams Water Gas Operator Relationship Specialty Start Date End Date Elsewhere, Pcp PCP - General Internal Medicine 05/29/19 documented as of this encounter
--- OUTSIDE RECORDS SUMMARY | 2022-01-16 15:55 | XMS_ITS | Encounter Summary ---
:1935 Author Organization [facility] Address [address] [place] [address] Care Team Providers Name Role Phone Elsewhere, Pcp Primary Care Provider Unavailable Reason for Visit Reason Comments Med Titration Call Encounter Details Date Type Department Care Team Description 04/29/2020 Clinical Orlando Guzman, Med Ti tration Call Communication Center for Petey Faria Clinical Regeneration [address] [facility] in [facility] [phone] [address] [facility] [phone] [place], [place] (Work) [phone] Social History Tobacco Use [...] or relatives? How often do you attend uatsdin or More than 4 times per year 09/25/2021 hindu services? Do you belong to any clubs or Yes 09/25/2021 organizations such as uatsdin groups, unions, fraternal or athletic groups, or [...] Telephone Encounter - Brittny Barrett R.N. - 04/29/2020 9:20 AM CST Patient contacted ANESTHESIA NURSE Telephone Encounter - Araceli Armenta - 04/29/2020 8:41 AM CST Mr. Franz calls for his usual med titration call with Zarina Barrett. Please call him back at [phone]. Thanks! ANESTHESIA NURSE documented in this encounter Plan of Treatment Not on filedocumented as of this encounter Visit Diagnoses Not on filedocumented in this encounter Care Teams Graduation Coach Relationship Specialty Start Date End Date Elsewhere, Pcp PCP - General Internal Medicine 05/29/19 documented as of this encounter
--- OUTSIDE RECORDS SUMMARY | 2022-01-16 15:55 | XMS_ITS | Encounter Summary ---
:1935 Author Organization [facility] Address [address] [place] [address] Care Team Providers Name Role Phone Elsewhere, Pcp Primary Care Provider Unavailable Reason for Referral Outpatient (Routine) - Closed Specialty Diagnoses / Procedures Referred By Contact Refer red To Contact Diagnoses Cardiomyopathy Dilated (HCC) Flutter Atrial (HCC) Sae [facility] Procedures [place] Outside Study Review Kam Adams, M.S. [address] [place] [address] Referral ID Status Reason Start Date Expiration Date Visits Requ ested Visits Authorized [id number] Closed 11/04/2020 11/04/2021 1 1 Reason for Visit Outpatient (Routine) - Closed Specialty Diagnoses / Procedures Referred By Contact Refer red To Contact Diagnoses Cardiomyopathy Dilated (HCC) Flutter Atrial (HCC) [facility] Procedures [place] Outside Study Review Asael Adams., M.S. [address] [place] [phone] Referral ID Status Reason Start Date Expiration Date Visits Requ ested Visits Authorized [id number] Closed 11/04/2020 11/04/2021 1 1 Encounter Details Date Type Department Care Team Description 11/05/2020 Hospital Encounter Department of Abou Cardiomy opathy Dilated (HCC); Cardiovascular Ezzeddine, Flutter Atria l (HCC) Diseases in [facility] Rosmery Adams C.M., [address] [facility] [place], [place] [address] [address] [place] [address] Social History Tobacco Use Types [...] More than 4 times per year 09/25/2021 protestant services? Do you belong to any clubs [...] Name Priority Date/Time Associated Diagnosis Comme nts ECHO OUTSIDE STUDY Routine 11/05/2020 2:11 PM Cardiomyopathy D ilated Results for this REVIEW CDT (HCC) procedure are in Flutter Atrial (HCC) the res ults section. documented in this encounter Results [place] Outside Study Review (11/05/2020 2:11 PM CDT) Analysis Performed At Patho logist Time Signature Ejection Fraction 36 MC CV EIMS Mid-Ascending 45 MC CV EIMS Aorta Wall Motion Score 2.44 MC CV EIMS Index LV End-Diastolic 57 MC CV EIMS Diameter LV End-Systolic 47 MC CV EIMS Diameter LV End-Diastolic 254 MC CV EIMS Volume LV End-Systolic 162 MC CV EIMS Volume MV E Velocity 0.6 MC CV EIMS MV A Velocity 0.9 MC CV EIMS MV E/A 0.67 MC CV EIMS MV e' Velocity 0.06 MC CV EIMS Medial MV E/e' Medial 10.0 MC CV EIMS Left ventricular 61 MC CV EIMS stroke volume index Cardiac Output 6.70 MC CV EIMS Cardiac Index 3.38 MC CV EIM[facility] TR Vmax 2.38 MC CV EIM[facility] RA Pressure 5 MC CV EIMS RV Systolic 28 MC CV EIMS Pressure AV mean gradient 8 MC CV EIM[facility] Aortic valve area 2.59 MC CV EIMS Aortic Valve 0.53 MC CV EIMS Dimensionless Index WMSI At Rest 2.44 MC CV EIMS WMSI At Peak 2.44 MC CV EIMS Stress Anatomical Region Laterality Modality Echocardiography Specimen (Source) Anatomical Collection Method Collection Time Re ceived Time Location / / Volume Laterality 11/05/2020 2:11 PM CDT Impressions 11/05/2020 5:09 PM CDT Outside echo interpretation from images dated: 16-OCT-2020. ??LEFT VENTRICLE: ??Severely enlarged left ventricular chamber size. ??Calcula radha 2-D biplane volumetric left ventricular ejection fraction 36 %. ??Regional wall motion ab normalities were present (see wall motion graphics). Acute ventriculo-aortic angle with flow acceleration across the basal septum. ??RIGHT VENTRICLE: Normal right ventricular chamber size. ??Normal right ventricular systolic function. ??Estimated right ventricular systolic pressure 28 m mHg (systolic blood pressure 94 mmHg). ??ATRIA: Enlarged left atrial size by visual irena mate. ??Normal right atrial size. ??CARDIAC VALVES: Indeterminate number of cusps of the aor tic valve. ??Calcified aortic valve. ??Aortic valve stenosis is present, at least mild. ??Mo derate-severe aortic valve regurgitation at least. Thickened mitral valve. ??Restricted ant erior leaflet opening due to aortic regurgitation jet. Trivial mitral valve regurgitation. ??Th ickened pulmonary valve. ??Mild-moderate pulmonary valve regurgitation. ??Thickened tricuspid dotty ve. ??Mild tricuspid valve regurgitation. ??OTHER ECHO FINDINGS: ??Normal inferior vena cava si ze with normal inspiratory collapse (>50%). ??Enlarged mid ascending aorta diameter (diameter 4 5 mm at mid level). ??No pericardial effusion. For the complete report, see the Order-L evel Documents. Narrative 11/05/2020 5:09 PM CDT For the complete report, see the [employer] Documents. Final Impressions 1. Outside echo performed at [facility] on 10/16/2020. 2. Severely enlarged left ventricular ch batool size. ??Calculated EF 36%. 3. Regional wall motion abnormalities we re present (see wall motion graphics). 4. Normal right ventricular chamber size and systolic function. Estimated RVSP 28 mmHg. 5. Calcified aortic valve with at least mild stenosis and at least moderate-severe regurgitation. 6. Enlarged mid ascending aorta diameter (diameter 45 mm at mid level). 7. Normal inferior vena cava size with n ormal inspiratory collapse (>50%). 8. No pericardial effusion. Procedure Note Jaja Cotton M.B.B.S., Ph.D. - 02/2021 For the complete report, see the [employer] Documents. Final Impressions 1. Outside echo performed at [facility] on 10/16/2020. 2. Severely enlarged left ventricular ch batool size. Calculated EF 36%. 3. Regional wall motion abnormalities we re present (see wall motion graphics). 4. Normal right ventricular chamber size and systolic function. Estimated RVSP 28 mmHg. 5. Calcified aortic valve with at least mild stenosis and at least moderate-severe regurgitation. 6. Enlarged mid ascending aorta diameter (diameter 45 mm at mid level). 7. Normal inferior vena cava size with n ormal inspiratory collapse (>50%). 8. No pericardial effusion. Findings Outside echo interpretation from images dated: 16-OCT-2020. LEFT VENTRICLE: Severely enlarged left ventricular chamber size. Calculate d 2-D biplane volumetric left ventricular ejection fraction 36 %. Regional wall motion abno rmalities were present (see wall motion graphics). Acute ventriculo-aortic angle with flow acceleration across the basal septum. RIGHT VENTRICLE: Normal right ventricular chamber size. Normal right ventricular systolic function. Estimated right ventricular systolic pressure 28 m mHg (systolic blood pressure 94 mmHg). ATRIA: Enlarged left atrial size by visual irena mate. Normal right atrial size. CARDIAC VALVES: Indeterminate number of cusps of the aor tic valve. Calcified aortic valve. Aortic valve stenosis is present, at least mild. Mode rate-severe aortic valve regurgitation at least. Thickened mitral valve. Restricted anter ior leaflet opening due to aortic regurgitation jet. Trivial mitral valve regurgitation. Thic kened pulmonary valve. Mild-moderate pulmonary valve regurgitation. Thickened tricuspid valve . Mild tricuspid valve regurgitation. OTHER ECHO FINDINGS: Normal inferior vena cava size with normal inspiratory collapse (>50%). Enlarged mid ascending aorta diameter (diameter 4 5 mm at mid level). No pericardial effusion. For the complete report, see the Order-L evel Documents. Sae Reyes Romelia Chavarria M.D., C.M., M.S. CV ECHO PROCEDU RES documented in this encounter Visit Diagnoses Diagnosis Cardiomyopathy Dilated (HCC) Flutter Atrial (HCC) documented in this encounter Care Teams Butcher All Round Relationship Specialty Start Date End Date Elsewhere, Pcp PCP - General Internal Medicine 05/29/19 documented as of this encounter
--- OUTSIDE RECORDS SUMMARY | 2022-01-16 15:55 | XMS_ITS | Encounter Summary ---
:1935 Author Organization [facility] Address [address] [place] [address] Care Team Providers Name Role Phone Elsewhere, Pcp Primary Care Provider Unavailable Reason for Visit Reason Comments Care Coordination Education on medication titr ation Encounter Details Date Type Department Care Team Description 02/13/2020 Patient Outreach Department of Zulma Kurtz Care Co ordination Cardiovascular C, R.NCarey (Education on Medicine in [place], medic ation titration [place] ([facility]) ) [address] [place] [phone] Social History Tobacco Use Types Packs/Day Years [...] or relatives? How often do you attend confucianism or More than 4 times per year 09/25/2021 pentecostal services? Do you belong to any clubs or Yes 09/25/2021 organizations such as confucianism groups, unions, fraternal or athletic groups, or [...] encounter Progress Notes Zulma Kurtz R.N. - 02/13/2020 11:01 AM CST HISTORY OF PRESENT ILLNESS Patient seen at the request of Paul Hickey MD to set up RN Care Coordination for Education on heart failure medication titration process in care coordination. Prescriber has completed the Heart Failure Medication Titration Order Set ([id number]). ASSESSMENT / PLAN Patient has not participated in a medication titration program before. Nii Miller Maria M was provided the option to enroll in care coordination. Consent for care coordination services was obtained. Advised a monthly bill will be submitted to the patient's insurance company and only one provider cansubmit a bill for their care. Encouraged them to reach out to the RN foster care worker or the financial counseling contact center for questions or concerns regarding this service. Provided brochure Cardiovascular Diseases Care Coordination [id number]. Reviewed with patient the need for daily heart failure self-care measures: Daily weights, required vital sign monitoring, symptom reporting, and when to call health care provider. Reviewed the purpose of Entresto, Spironolactone and Toprol XL and recommended dose adjustments. Possible side effects of medication and guidelines for when to contact the office were discussed. Required lab testing will be completed at [facility] , , Attn Lab Patient will obtain labs on: Two weeks after starting Entresto First Call Due: the next day after labs were drawn or once the results are available Teaching methods included printed material and discussion. Resources provided: Heart Failure Self Care Plan [id number], Cardiovascular Diseases Care Coordination [phone] RN contact information provided to patient. Opportunity for questions provided and all questions answered. Patient verbalized an understanding of the plan of care and will contact us in the interim should questions or problems arise. Evaluation of learning: able to demonstrate teach-back. IVIST MILITARY HISTORY documented in this encounter Miscellaneous Notes Addendum Note - Zulma Kurtz R.N. - 02/13/2020 11:01 AM ARCHIVIST MILITARY HISTORY Addended by: ZULMA KURTZ on: 02/14/2020 11:37 AM Modules accepted: Orders IVIST MILITARY HISTORY documented in this encounter Plan of Treatment Not on filedocumented as of this encounter Visit Diagnoses Diagnosis Cardiomyopathy Dilated (HCC) documented in this encounter Care Teams Boil Off Machine Operator Cloth Relationship Specialty Start Date End Date Elsewhere, Pcp PCP - General Internal Medicine 05/29/19 documented as of this encounter
--- OUTSIDE RECORDS SUMMARY | 2022-01-16 15:55 | XMS_ITS | Encounter Summary ---
:1935 Author Organization [facility] Address [address] [place] [address] Care Team Providers Name Role Phone Elsewhere, Pcp Primary Care Provider Unavailable Encounter Details Date Type Department Care Team Description 10/21/2020 Orders Only Department of Dina Maria trial ([facility]) Cardiovascular Medicine L, R.N. (Primary Dx) in [facility] [phone] 200 [facility] [place] ([place]) [place] [phone] Social History Tobacco Use Types Packs/Day [...] or relatives? How often do you attend yarsanism or More than 4 times per year 09/25/2021 jainism services? Do you belong to any clubs or Yes 09/25/2021 organizations such as yarsanism groups, unions, fraternal or athletic groups, or [...] place to sleep or slept in a chcf (including now)? Education Answer Date Recorded What is the highest level of school Bachelor's degree (e.g., BA, AB, 05/16/2019 you have completed or the highest BS) degree you have received? Sex Assigned at Date Recorded Male 08/14/2017 2:01 PM CDT documented as of this encounter Plan of Treatment Not on filedocumented as of this encounter Visit Diagnoses Diagnosis Flutter Atrial (HCC) - Primary documented in this encounter Care Teams Bus Escort Relationship Specialty Start Date End Date Elsewhere, Pcp PCP - General Internal Medicine 05/29/19 documented as of this encounter
--- OUTSIDE RECORDS SUMMARY | 2022-01-16 15:55 | XMS_ITS | Encounter Summary ---
:1935 Author Organization [facility] Address [address] [place] [address] Care Team Providers Name Role Phone Elsewhere, Pcp Primary Care Provider Unavailable Reason for Visit Reason Comments Medication Question Encounter Details Date Type Department Care Team Description 02/17/2020 Clinical Department of Brittny Barrett Medication Communication Cardiovascular C, R.N. Question Medicine in [phone] [place], [place] (Work) [address] [place] [phone] Social History Tobacco Use Types Packs/Day Years [...] or relatives? How often do you attend voodoo or More than 4 times per year 09/25/2021 scientologist services? Do you belong to any clubs or Yes 09/25/2021 organizations such as voodoo groups, unions, fraternal or athletic groups, or [...] Telephone Encounter - Brittny Barrett R.N. - 02/19/2020 10:27 AM SEAMSTRESS FITTER Patient's , Shira contacted. She was advised that [place] has received notification yesterday from [employer] that a PA was necessary for Entresto and that a separate area ([facility]) will work through it as soon as they can. Mr and Mrs Franz were asked to call the [facility] Clinic once they received the medication in the mail and Mr. Franz should continue taking the lisinopril in the interim. STRESS FITTER Telephone Encounter - Corin Crain - 02/17/2020 11:17 AM CST [place], Patient's Shira called stating that [employer] needs a coverage review for his Entresto.I asked for a phone or fax number, but she said you would know where to fax the information to. If you have any questions, they can be reached at [phone]. Corin Mahajan STRESS FITTER documented in this encounter Plan of Treatment Not on filedocumented as of this encounter Visit Diagnoses Not on filedocumented in this encounter Care Teams Neon Tube Bender Relationship Specialty Start Date End Date Elsewhere, Pcp PCP - General Internal Medicine 05/29/19 documented as of this encounter
--- OUTSIDE RECORDS SUMMARY | 2022-01-16 15:55 | XMS_ITS | Encounter Summary ---
:1935 Author Organization [facility] Address [address] [place] [address] Care Team Providers Name Role Phone Elsewhere, Pcp Primary Care Provider Unavailable Reason for Visit Reason Comments Esophageal Medication Question Encounter Details Date Type Department Care Team Description 10/01/2020 Clinical Division of Edy, Esophageal; Communication Gastroenterology in [place], [place] SENIOR MICROSOFT CONSULTANT, Question [address] [facility] [place], [place] [address] [phone] [place] [phone] Social History Tobacco Use Types Packs/Day Years [...] or relatives? How often do you attend worship or More than 4 times per year 09/25/2021 christian services? Do you belong to any clubs or Yes 09/25/2021 organizations such as worship groups, unions, fraternal or athletic groups, or [...] place to sleep or slept in a penitentiary (including now)? Education Answer Date Recorded What [...] on filedocumented in this encounter Care Teams Forest Economics Professor Relationship Specialty Start Date End Date Elsewhere, Pcp PCP - General Internal Medicine 05/29/19 documented as of this encounter
--- OUTSIDE RECORDS SUMMARY | 2022-01-16 15:55 | XMS_ITS | Encounter Summary ---
:1935 Author Organization [facility] Address [address] [place] [address] Care Team Providers Name Role Phone Elsewhere, Pcp Primary Care Provider Unavailable Reason for Visit Reason Comments Medication Titration Entresto Encounter Details Date Type Department Care Team Description 05/21/2020 Patient Outreach Department of Brittny Barrett ion Cardiovascular C, R.N. Titration Medicine in [place], (Entr esto) [place] (Work) [address] [place] [phone] Social History Tobacco Use Types Packs/Day Years [...] or relatives? How often do you attend alevism or More than 4 times per year 09/25/2021 religion services? Do you belong to any clubs or Yes 09/25/2021 organizations such as alevism groups, unions, fraternal or athletic groups, or [...] place to sleep or slept in a mcfp (including now)? Education Answer Date Recorded What is the highest level of school Bachelor's degree (e.g., BA, AB, 05/16/2019 you have completed or the highest BS) degree you have received? Sex Assigned at Date Recorded Male 08/14/2017 2:01 PM CDT documented as of this encounter Progress Notes Brittny Barrett R.N. - 05/21/2020 3:27 PM CST CHIEF COMPLAINT / REASON FOR CALL Medication Titration (Entresto) INFORMATION DISCUSSED Mr and Mrs Nii Miller Maria M contacted today for Heart Failure Medication Titration. Provider: Paul Car MD Patient is currently taking Entresto at 97-103 mg twice a day. Vital signs reviewed. BP: 134/61, 103/57, 129/62 HR: 53-68 bpm Weight: 182 pounds Current lab testing completed at [facility] in [place], [place] on 05/20/20 Results: sodium 141; potassium 4.4, [...] Plan Patient instructed to continue Entresto at 97-103 mg, twice a day and begin taking spironolactone at25 mg once a day. The patient gets his medications through a mail order pharmacy and they will call me once he receives the medication in the mail Pharmacy updated with medication dosing change. Next Lab Due TBD Next Call Due TBD Disposition/Recommendation: protocol orders and recommended continue engagement in self-management activities Education: patient/caller able to teach back Caller agreeable to plan of care: yes The following references were used: Nursing clinical judgement, [facility] Protocols-Heart Failure Medication Titration Order Set ([id number]) and Heart Failure: Medication Dosing Adjustment Protocol Reference Document, ([id number]). E SALES SPECIALIST documented in this encounter Plan of Treatment Not on filedocumented as of this encounter Visit Diagnoses Not on filedocumented in this encounter Care Teams Quality Internship Relationship Specialty Start Date End Date Elsewhere, Pcp PCP - General Internal Medicine 05/29/19 documented as of this encounter
--- OUTSIDE RECORDS SUMMARY | 2022-01-16 15:55 | XMS_ITS | Encounter Summary ---
:1935 Author Organization [facility] Address [address] [place] [address] Care Team Providers Name Role Phone Elsewhere, Pcp Primary Care Provider Unavailable Reason for Visit Reason Comments HF med titration Encounter Details Date Type Department Care Team Description 02/14/2020 Clinical Department of Brittny Barrett HF med titr ation Communication Cardiovascular C, R.N. Medicine in [phone] [place], [place] (Work) [address] [place] [phone] Social History Tobacco Use Types Packs/Day Years [...] or relatives? How often do you attend jewish or More than 4 times per year 09/25/2021 latter-day services? Do you belong to any clubs or Yes 09/25/2021 organizations such as jewish groups, unions, fraternal or athletic groups, or [...] Telephone Encounter - Brittny Barrett R.N. - 02/14/2020 10:58 AM CUSTOMER SERVICE SALES ASSOCIATE Patient contacted OMER SERVICE SALES ASSOCIATE Telephone Encounter - Chinyere Nascimento - 02/14/2020 9:12 AM CST Call received from Shira Franz ([phone]) regarding her . She said they had received a phone call and an email from you yesterday about a need to change/titrate medications for HF. Nii is a patient of Dr. Hickey. She mentioned that she thought this meeting may take 45-60 minutes. OMER SERVICE SALES ASSOCIATE documented in this encounter Plan of Treatment Not on filedocumented as of this encounter Visit Diagnoses Not on filedocumented in this encounter Care Teams Campground Manager Relationship Specialty Start Date End Date Elsewhere, Pcp PCP - General Internal Medicine 05/29/19 documented as of this encounter
--- OUTSIDE RECORDS SUMMARY | 2022-01-16 15:55 | XMS_ITS | Encounter Summary ---
:[address] [facility] Address [address] [place] [address] Care Team Providers Name Role Phone Elsewhere, Pcp Primary Care Provider Unavailable Encounter Details Date Type Department Care Team Description 10/19/2020 Clinical Communication Department of [facility] Cardiovascular Medicine [facility] in [facility] lizett Reyes M.D., [address] [place] [address] [place] [phone] [phone] [place] [address] [place] [phone] Social History Tobacco Use Types [...] More than 4 times per year 09/25/2021 holiness services? Do you belong to any clubs [...] this encounter Miscellaneous Notes Telephone Encounter - Malathi Lenz R.N. - 10/22/2020 10:19 AM CDT [facility] as patient will have this done locally. Addendum Note - Malathi Lenz RIsidra. - 10/22/2020 10:13 AM CDT Addended by: MALATHI LENZ on: 10/22/2020 10:13 AM Modules accepted: Orders Telephone Encounter - Jefferson Noel - 10/22/2020 9:23 AM CDT I received this earlier yesterday AM. If you sent orders, no worries. Thank you! Telephone Encounter - Dina Maria R.N. - 10/21/2020 4:22 PM CDT I sent new orders this morning. Did you get something again? Telephone Encounter - Jefferson Noel - 10/21/2020 2:46 PM CDT I received faxed orders from the our appt. office for this patient. These orders need to be done as outside orders and apparently the patient is going to have these drawn at [facility]. All orders are listed below. Labs AST (Aspartate Aminotransferase) Bicarbonate BUN (Blood Urea Nitrogen) CBC with Differential, Blood Creatinine with Estimated GFR Glucose, Fasting Lipid Panel NT-Pro B-Type Natriuretic Peptide (BNP) Potassium S-TSH (Thyroid-Stimulating Hormone - Sensitive) Sodium Other Orders ECG 12 Lead Once ordered as outside orders, I certainly can fax them if you can share the fax number. Thank you, Jefferson (for Chinyere) Telephone Encounter - Mary Rodriguez - 10/19/2020 11:[address] Romelia Chavarria, Mr. Franz is scheduled with you on 11/04. He usually sees Dr. Hickey, but unfortunately his first available isn't until November and the is concerned about Nii's health. He recently had anecho done on 10/16 locally at [facility]. I sent you lab orders and ecg, please let me know if anything additional is needed. Thank you, Mary documented in this encounter Plan of Treatment Not on filedocumented as of this encounter Visit Diagnoses Diagnosis Cardiomyopathy Dilated (HCC) - Primary documented in this encounter Care Teams Bank Compliance Officer Relationship Specialty Start Date End Date Elsewhere, Pcp PCP - General Internal Medicine 05/29/19 documented as of this encounter
--- OUTSIDE RECORDS SUMMARY | 2022-01-16 15:55 | XMS_ITS | Encounter Summary ---
:1935 Author Organization [facility] Address [address] [place] [address] Care Team Providers Name Role Phone Elsewhere, Pcp Primary Care Provider Unavailable Reason for Visit Reason Comments Care Coordination Medication titration Encounter Details Date Type Department Care Team Description 04/29/2020 Patient Outreach Department of Brittny Barrett [facility] Co ordination Cardiovascular C, R.NCarey (Medication Medicine in [place], titra tion ) [place] (Work) [address] [place] [phone] Social History Tobacco Use Types Packs/Day Years [...] or relatives? How often do you attend methodist or More than 4 times per year 09/25/2021 shinto services? Do you belong to any clubs or Yes 09/25/2021 organizations such as methodist groups, unions, fraternal or athletic groups, or [...] place to sleep or slept in a long term (including now)? Education Answer Date Recorded What is the highest level of school Bachelor's degree (e.g., BA, AB, 05/16/2019 you have completed or the highest BS) degree you have received? Sex Assigned at Date Recorded Male 08/14/2017 2:01 PM CDT documented as of this encounter Progress Notes Brittny Barrett R.N. - 04/29/2020 9:22 AM CST CHIEF COMPLAINT / REASON FOR CALL No chief complaint on file. INFORMATION DISCUSSED Mr and Mrs Nii Franz contacted today for Heart Failure Medication Titration. Provider: Paul Car MD Patient is currently taking Entresto at 73-77 mg twice a day. Vital signs reviewed. BP: 136/63, 88/46 HR: 55-66 bpm Weight: 181.8 pounds Current lab testing completed at [facility] in [place], [place] on 04/28/20 Results: sodium 139; potassium 4.1, creatinine 1.34, BUN 23. Previous lab testing completed at [facility] in [place], [place] on 04/13/20 Results: sodium 137; potassium 4.4, creatinine 1.37, BUN 20. Previous lab testing completed at [facility] in [place], [place] on 03/16/20 Results: sodium 139; potassium 4.4, creatinine 1.35, BUN 17. Previous lab testing completed at [facility] in [place], [place] on 02/04/20 Results: sodium 142; potassium 4.6, creatinine 1.34, BUN 25. Current symptoms reported by patient include None. We discussed the fact his weight has slowly increased from mid-170's to his current weight today. Mr and Mrs. Franz do a good job of tracking his daily fluid and sodium intake. Mr. Franz admits he has a sweet tooth and does not do much aerobic exercise to burn off calories. He offered that he could walk a path through his house to increase his exercise. Based on reported patient vital signs and patient symptoms, recommend patient does titrate medication(s) per protocol. Patient is willing to implement recommended plan. Heart Failure Medication Titration Plan Patient instructed to increase Entresto to 97-103 mg, (two 49-51 mg tabs) twice a day effective 05/04/20. Pharmacy updated with medication dosing change. Next Lab Due 05/20/20 Next Call Due 05/21 or 05/22/20 Disposition/Recommendation: protocol orders and recommended continue engagement in self-management activities Education: patient/caller able to teach back Caller agreeable to plan of care: yes The following references were used: Nursing clinical judgement, [facility] Protocols-Heart Failure Medication Titration Order Set ([id number]) and Heart Failure: Medication Dosing Adjustment Protocol Reference Document, ([id number]). BED STITCHER documented in this encounter Plan of Treatment Not on filedocumented as of this encounter Visit Diagnoses Not on filedocumented in this encounter Care Teams Marketing Account Executive Relationship Specialty Start Date End Date Elsewhere, Pcp PCP - General Internal Medicine 05/29/19 documented as of this encounter
--- OUTSIDE RECORDS SUMMARY | 2022-01-16 15:55 | XMS_ITS | Encounter Summary ---
:1935 Author Organization [facility] Address [address] [place] [address] Care Team Providers Name Role Phone Elsewhere, Pcp Primary Care Provider Unavailable Encounter Details Date Type Department Care Team Description 11/04/2020 Hospital Encounter Department of [place] Cardiomy opathy Dilated (HCC); Laboratory Medicine [place], Flutter Atrial (HCC) and Pathology, Sae Reyes M.D., [place], in [place], M.S. [place], [address] [place], [place] [address] [place] [phone] [place], [place] [phone] (Work) [phone] Social History Tobacco Use Types Packs/Day Years [...] Priority Date/Time Associated Diagnosis Comme nts MONOCLONAL PROTEIN Routine 11/04/2020 1:06 PM Cardiomyopathy D ilated Results for this STUDY, RANDOM, U CDT (HCC) procedure are in Flutter Atrial (HCC) the res ults section. documented in this encounter Results Monoclonal Protein Study, Random, Urine (11/04/2020 1:06 PM CDT) [facility] Method Time Signature Protein, Total, 8 mg/dL 11/04/2020 [facility] Random, U 2:50 PM CDT Albumin, mg/dL 1.6 mg/dL 11/10/2020 [facility] 7:07 AM CDT Alpha-1 globulin, 1.3 mg/dL 11/10/2020 [facility] mg/dL 7:07 AM CDT Alpha-2 globulin, 1.1 mg/dL 11/10/2020 [facility] mg/dL 7:07 AM CDT Beta globulin, 1.4 mg/dL 11/10/2020 [facility] mg/dL 7:07 AM CDT Gamma globulin, 2.5 mg/dL 11/10/2020 [facility] mg/dL 7:07 AM CDT A/G Ratio 0.25 11/10/2020 [facility] 7:07 AM CDT Impression All fractions present, no apparent M-spike. 11/10/2020 [facility] 7:07 AM CDT See Immunofixation. Immunofixation Negative Negative 11/10/2020 [facility] Flag, Random, U 2:30 PM CDT Immunofixation, No monoclonal 11/10/2020 [facility] Random, U protein 2:30 PM CDT detected. Comment: ----ADDITIONAL INFORMATION---- This test has been modified from the man ufacturer's instructions. Its performance characteristics were determi joshua by [facility] in a manner consistent with CLIA requirements. This test has not been cleared or approved by the U.S. Food and Drug Administration . Specimen Anatomical Collection Method Collection Time Receive d Time (Source) Location / / Volume Laterality Urine (Urine, 11/04/2020 1:06 PM 11/05/19 21 1:36 Clean Catch) CDT PM CDT Sae F Romelia Chavarria M.D., C.M., M.S. LAB URINE ORDER EHSAN Performing Organization Address City/State/ZIP Code Phon e Number [facility] [address] [place], [place] [address] [place] [address] [facility] [address] [facility] [place] [address] Laboratory Medicine and Pathology [address] [place] documented in this encounter Visit Diagnoses Diagnosis Cardiomyopathy Dilated (HCC) Flutter Atrial (HCC) documented in this encounter Care Teams Flame Brazing Machine Operator Relationship Specialty Start Date End Date Elsewhere, Pcp PCP - General Internal Medicine 05/29/19 documented as of this encounter
--- OUTSIDE RECORDS SUMMARY | 2022-01-16 15:55 | XMS_ITS | Encounter Summary ---
:1935 Author Organization [facility] Address [address] [place] [phone] Care Team Providers Name Role Phone Elsewhere, Pcp Primary Care Provider Unavailable Reason for Visit Reason Comments Symptom Assessment Encounter Details Date Type Department Care Team Description 11/25/2020 Clinical Department of Louisa Ahumada Communication Cardiovascular M, R.N. Medicine in [phone] [place], [place] (Work) [address] [place] [phone] Social History Tobacco Use Types Packs/Day Years [...] or relatives? How often do you attend hindu or More than 4 times per year 09/25/2021 scientology services? Do you belong to any clubs or Yes 09/25/2021 organizations such as hindu groups, unions, fraternal or athletic groups, or [...] this encounter Miscellaneous Notes Telephone Encounter - Louisa Ahumada R.N. - 12/02/2020 10:54 AM CDT SUBJECTIVE CHIEF COMPLAINT / REASON FOR CALL Symptom Assessment INFORMATION DISCUSSED RN collaborated with provider and the recommendations from Sae Chavarria M.D. were provided to the patient. PLAN RN advised the wall thickness was not concerning and does not require further investigation at this time. Advised there is a valve in the heart that seems to be leaking and Dr. Quevedo has recommended a visit with the valve experts. Schedulers will contact them to make these arrangements. Disposition/Recommendation: recommended continue engagement in self-management activities Education: patient/caller able to teach back Caller agreeable to plan of care: yes The following references were used: nursing clinical judgement Telephone Encounter - Louisa Ahumada R.N. - 11/25/2020 3:40 PM CDT SUBJECTIVE CHIEF COMPLAINT / REASON FOR CALL Symptom Assessment Information Discussed RN contacted Mrs. Franz who reports the torsemide 10 mg on Monday, Monday and Fridays has been working well for them. He now has flexibility with when to take the diuretic dosing. He has not had a5 pounds weight gain in quite some time. He has not experienced a 3 pounds weight gain over night either. Mr. Franz has some trouble with taking in enough fluid. His sodium intake is on track and they target intake of 48-54 ounces of fluid daily. Blood pressure: Highest for October 120/67 Lowest for October was the reading measured in the office Another low measured at an appointment 93/58 Pulse: 50-69 bpm consistently. One reading of 72 bpm was the outlier. Today 11/25- 119/61; 53 bpm They have successfully metered out medications throughout the day to follow the various dosing directions. Mrs. Franz notes he gets droopy sometimes and his lips turn a little blue. They check the blood pressure again when this occurs. They have not checked oxygen level due to limitations of equipment with his Raynaud's disease. She gives him a dish of ice cream which seems to help as this is both fluid and a calorie boost. PLAN RN will share the update with Sae Chavarria M.D. The echocardiogram was being over read here and RN awaits a report from the prescriber about this todetermine next steps in follow up care. Disposition/Recommendation: notified provider and awaiting recommendations and recommended continue engagement in self-management activities Information/Education: patient/caller able to teach back Caller agreeable to plan of care: yes The following references were used: nursing clinical judgement documented in this encounter Plan of Treatment Not on filedocumented as of this encounter Visit Diagnoses Not on filedocumented in this encounter Care Teams Biochemistry Technician Relationship Specialty Start Date End Date Elsewhere, Pcp PCP - General Internal Medicine 05/29/19 documented as of this encounter
--- OUTSIDE RECORDS SUMMARY | 2022-01-16 15:55 | XMS_ITS | Encounter Summary ---
:1935 Author Organization [facility] Address [address] [place] [address] Care Team Providers Name Role Phone Elsewhere, Pcp Primary Care Provider Unavailable Reason for Visit Reason Comments Medication Titration Toprol XL Encounter Details Date Type Department Care Team Description 07/10/2020 Patient Outreach Department of Brittny Barrett ion Cardiovascular C, R.N. Titration (Toprol Medicine in [place], XL) [place] ([facility]) [address] [place] [phone] Social History Tobacco Use Types Packs/Day Years [...] More than 4 times per year 09/25/2021 uatsdin services? Do you belong to any clubs [...] encounter Progress Notes Brittny Barrett R.N. - 07/10/2020 3:53 PM CDT CHIEF COMPLAINT / REASON FOR CALL Medication Titration (Toprol XL) INFORMATION DISCUSSED Mr and Mrs Nii Franz contacted today for Heart Failure Medication Titration regarding Toprol XL Provider: Paul Car MD Patient is taking Toprol XL at 75 mg in the AM and 100 mg in PM, for daily total of 175 mg Vital signs reviewed. BP: 118/58, 128/57, 71/42 HR: ranged 53 -70 bpm Weight: 184 pounds Current symptoms reported by patient include Dizziness or sensations of orthostatic hypotension, thesensation clears after a brief period. The patient finds the sensation intolerable and would like todecrease the Toprol XL dose. Based on reported patient vital signs and patient symptoms, recommend patient does not titrate medication(s) per protocol. Patient is willing to implement recommended plan. Heart Failure Medication Titration Plan Patient instructed to decrease Toprol XL to 150 mg, daily. The patient takes the Toprol XL as a twice a day medication. He will resume taking Toprol XL at 75 mg twice a day. The patient and his wish to keep the dose of Toprol at 150 mg daily. Pharmacy updated with medication dosing change. Next Call Due No further phone calls are necessary. Disposition/Recommendation: protocol orders and recommended continue engagement in self-management activities Education: patient/caller able to teach back Caller agreeable to plan of care: yes The following references were used: Nursing clinical judgement, [facility] Protocols-Heart Failure Medication Titration Order Set ([id number]) and Heart Failure: Medication Dosing Adjustment Protocol Reference Document, ([id number]). documented in this encounter Plan of Treatment Not on filedocumented as of this encounter Visit Diagnoses Not on filedocumented in this encounter Care Teams Catalyst Plant Supervisor Relationship Specialty Start Date End Date Elsewhere, Pcp PCP - General Internal Medicine 05/29/19 documented as of this encounter
--- OUTSIDE RECORDS SUMMARY | 2022-01-16 15:55 | XMS_ITS | Encounter Summary ---
:1935 Author Organization [facility] Address [address] [place] [address] Care Team Providers Name Role Phone Elsewhere, Pcp Primary Care Provider Unavailable Reason for Visit Reason Comments Care Coordination Medication titration Encounter Details Date Type Department Care Team Description 02/28/2020 Patient Outreach Department of Brittny Barrett [facility] Co ordination Cardiovascular C, R.NCarey (Medication Medicine in [place], titra tion ) [place] (Work) [address] [place] [phone] Social History Tobacco Use Types Packs/Day Years [...] or relatives? How often do you attend gnosticist or More than 4 times per year 09/25/2021 latter day services? Do you belong to any clubs or Yes 09/25/2021 organizations such as gnosticist groups, unions, fraternal or athletic groups, or [...] encounter Progress Notes Brittny Barrett R.N. - 02/28/2020 11:50 AM CST CHIEF COMPLAINT / REASON FOR CALL Care Coordination (Medication titration ) INFORMATION DISCUSSED Mr and Mrs Nii Franz called today for Heart Failure Medication Titration. Provider: Paul Car MD Patient is currently taking Lisinopril at 10 mg once a day. Vital signs reviewed. BP: 133/63, 146/65, 96/57 HR:56-59 bpm Weight: 176.4 pounds Lab testing completed at [facility] in [place], [place] on 02/04/20 Results: sodium 142; potassium 4.6, creatinine 1.34, BUN 25. Current symptoms reported by patient include None Based on reported patient vital signs and patient symptoms, recommend patient does titrate medication(s) per protocol. Patient is willing to implement recommended plan. Heart Failure Medication Titration Plan Patient instructed to take last dose of Lisinopril today, 02/28/20. On Monday, 03/02 begin taking Entresto at 24-26 mg, twice a day. Pharmacy updated with medication dosing change. Next Lab Due 03/16/20 Next Call Due 03/17 or 03/18/20 Disposition/Recommendation: protocol orders and recommended continue engagement in self-management activities Education: patient/caller able to teach back Caller agreeable to plan of care: yes The following references were used: Nursing clinical judgement, [facility] Protocols-Heart Failure Medication Titration Order Set ([id number]) and Heart Failure: Medication Dosing Adjustment Protocol Reference Document, ([id number]). NIGHT CAREGIVER documented in this encounter Plan of Treatment Not on filedocumented as of this encounter Visit Diagnoses Diagnosis Cardiomyopathy Dilated (HCC) - Primary documented in this encounter Care Teams Car Installations Supervisor Relationship Specialty Start Date End Date Elsewhere, Pcp PCP - General Internal Medicine 05/29/19 documented as of this encounter
--- OUTSIDE RECORDS SUMMARY | 2022-01-16 15:55 | XMS_ITS | Encounter Summary ---
:1935 Author Organization [facility] Address [address] [place] [address] Care Team Providers Name Role Phone Elsewhere, Pcp Primary Care Provider Unavailable Reason for Visit Reason Comments Med Refill Encounter Details Date Type Department Care Team Description 09/27/2020 Refill Division of Gastroenterology in Alyx Villafana Med Refill [place], [place] EAR NOSE AND THROAT SPECIALIST, C.N.P. [address] [facility] [address] [place] [phone] [place], [place] [phone] (Wo rk) Social History Tobacco Use Types [...] or relatives? How often do you attend druze or More than 4 times per year 09/25/2021 mormonism services? Do you belong to any clubs or Yes 09/25/2021 organizations such as druze groups, unions, fraternal or athletic groups, or [...] on filedocumented in this encounter Care Teams Stave Cutting Supervisor Relationship Specialty Start Date End Date Elsewhere, Pcp PCP - General Internal Medicine 05/29/19 documented as of this encounter
--- OUTSIDE RECORDS SUMMARY | 2022-01-16 15:55 | XMS_ITS | Encounter Summary ---
:1935 Author Organization [facility] Address [address] [place] [address] Care Team Providers Name Role Phone Elsewhere, Pcp Primary Care Provider Unavailable Reason for Visit Reason Comments Medication Titration Spironolactone Encounter Details Date Type Department Care Team Description 06/02/2020 Patient Outreach Department of Brittny Barrett ion Cardiovascular C, R.N. Titration Medicine in [place], (Spir onolactone) [place] (Work) [address] [place] [phone] Social History Tobacco Use Types Packs/Day Years [...] or relatives? How often do you attend mu-ism or More than 4 times per year 09/25/2021 shinto services? Do you belong to any clubs or Yes 09/25/2021 organizations such as mu-ism groups, unions, fraternal or athletic groups, or [...] encounter Progress Notes Brittny Barrett R.N. - 06/02/2020 11:23 AM CST CHIEF COMPLAINT / REASON FOR CALL Medication Titration (Spironolactone) INFORMATION DISCUSSED Mr and Mrs Nii Franz contacted today for Heart Failure Medication Titration with spironolactone. Provider: Paul Car MD Patient is not currently taking spironolactone. Vital signs reviewed. BP: 123/60 HR: 66 bpm Weight: 181.5 pounds Current lab testing completed at [facility] in [place], [place] on 05/20/20 Results: sodium 141; potassium [...] twice a day and begin taking spironolactone at12.5 mg once a day, effective 06/03/20. Pharmacy previously updated with medication dosing change. Next Lab Due 06/09/20 Next Call Due 06/10/20 Disposition/Recommendation: protocol orders and recommended continue engagement in self-management activities Education: patient/caller able to teach back Caller agreeable to plan of care: yes The following references were used: Nursing clinical judgement, [facility] Protocols-Heart Failure Medication Titration Order Set ([id number]) and Heart Failure: Medication Dosing Adjustment Protocol Reference Document, ([id number]). GER ADVANCED documented in this encounter Plan of Treatment Not on filedocumented as of this encounter Visit Diagnoses Diagnosis Cardiomyopathy Dilated (HCC) - Primary documented in this encounter Care Teams Bursar Relationship Specialty Start Date End Date Elsewhere, Pcp PCP - General Internal Medicine 05/29/19 documented as of this encounter
--- OUTSIDE RECORDS SUMMARY | 2022-01-16 15:55 | XMS_ITS | Encounter Summary ---
:1935 Author Organization [facility] Address [address] [place] [address] Care Team Providers Name Role Phone Elsewhere, Pcp Primary Care Provider Unavailable Encounter Details Date Type Department Care Team Description 10/19/2020 Orders Only Department of Abou Cardiomyopathy Dilated Cardiovascular Medicine [place] ([facility] ) (Primary Dx) in [facility] lizett Reyes M.D., [address] [facility] [place] [phone] [place] [address] [place] [phone] Social History Tobacco Use Types Packs/Day Years [...] or relatives? How often do you attend jainism or More than 4 times per year 09/25/2021 yarsani services? Do you belong to any clubs or Yes 09/25/2021 organizations such as jainism groups, unions, fraternal or athletic groups, or [...] Primary documented in this encounter Care Teams Forensic Sergeant Relationship Specialty Start Date End Date Elsewhere, Pcp PCP - General Internal Medicine 05/29/19 documented as of this encounter
--- OUTSIDE RECORDS SUMMARY | 2022-01-16 15:55 | XMS_ITS | Encounter Summary ---
:1935 Author Organization [facility] Address [address] [place] [address] Care Team Providers Name Role Phone Elsewhere, Pcp Primary Care Provider Unavailable Reason for Visit Reason Comments Care Coordination medication titration Encounter Details Date Type Department Care Team Description 03/17/2020 Patient Outreach Department of Brittny Barrett [facility] Co ordination Cardiovascular C, R.NCarey (medication Medicine in [place], titra tion) [place] (Work) [address] [place] [phone] Social History Tobacco Use Types Packs/Day Years [...] More than 4 times per year 09/25/2021 presybeterian services? Do you belong to any clubs [...] encounter Progress Notes Brittny Barrett R.N. - 03/17/2020 2:18 PM CST CHIEF COMPLAINT / REASON FOR CALL Care Coordination (medication titration) INFORMATION DISCUSSED Mr and Mrs Nii Franz contacted today for Heart Failure Medication Titration. Provider: Paul Car MD Patient is currently taking Entresto at 24-26 mg twice a day. Vital signs reviewed. BP: 112/56, 122/63, 96/47 HR:55-67 bpm Weight: 175.9 pounds Current lab testing completed at [facility] in [place], [place] on 03/16/20 Results: sodium 139; potassium 4.4, creatinine 1.35, BUN 17. Previous lab testing completed at [facility] in [place], [place] on 02/04/20 Results: sodium 142; potassium 4.6, creatinine 1.34, BUN 25. Current symptoms reported by patient include Dizziness with quick position changes. Mr. Franz seemed hesitant to increase the Entresto dose and was interested in staying at the current Entresto dose for another 2 weeks. Based on reported patient vital signs and patient symptoms, recommend patient does not titrate medication(s) per protocol. Patient is willing to implement recommended plan. Heart Failure Medication Titration Plan Patient instructed to continue Entresto at 24-26 mg, twice a day. Pharmacy previously updated with medication dosing change. Next Lab Due No labs are necessary since there is no dose change Next Call Due 03/31/20 Disposition/Recommendation: protocol orders and recommended continue engagement in self-management activities Education: patient/caller able to teach back Caller agreeable to plan of care: yes The following references were used: Nursing clinical judgement, [facility] Protocols-Heart Failure Medication Titration Order Set ([id number]) and Heart Failure: Medication Dosing Adjustment Protocol Reference Document, ([id number]). CELL TECHNICIAN documented in this encounter Plan of Treatment Not on filedocumented as of this encounter Visit Diagnoses Not on filedocumented in this encounter Care Teams Md Do Resident Urgent Care Relationship Specialty Start Date End Date Elsewhere, Pcp PCP - General Internal Medicine 05/29/19 documented as of this encounter
--- OUTSIDE RECORDS SUMMARY | 2022-01-16 15:55 | XMS_ITS | Encounter Summary ---
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 [address] [place] [phone] Referral ID Status Reason Start Date Expiration Date Visits Requ ested Visits Authorized [id number] Closed 12/08/2020 12/08/2021 1 1 utpatient (Routine) - Closed Specialty Diagnoses / Procedures Referred By Contact Refer red To Contact Cardiovascular Disease Sae Espinal [facility] Bryan Reyes, C.Sebastian., M.S. [address] [place] [phone] Referral ID Status Reason Start Date Expiration Date Visits Requ ested Visits Authorized [id number] Closed 11/04/2020 11/04/2021 1 1 utpatient (Routine) - Closed Specialty Diagnoses / Procedures Referred By Contact Refer red To Contact Diagnoses Cardiomyopathy Dilated (HCC) Flutter [facility]CC) [facility] Outside Study Review Kam Adams, M.S. [address] [place] [address] Referral ID Status Reason Start Date Expiration Date Visits Requ ested Visits Authorized [id number] Closed 11/04/2020 11/04/2021 1 1 utpatient (Routine) - Closed Specialty Diagnoses / Procedures Referred By Contact Refer red To Contact Diagnoses Cardiomyopathy Dilated (HCC) Flutter Atrial [facility]HCC) [facility] ECG 12 Lead Kam Adams, M.S. [address] [place], [place] [address] Referral ID Status Reason Start Date Expiration Date Visits Requ ested Visits Authorized [id number] Closed 11/04/2020 11/04/2021 1 1 Reason for Visit Appointment Request (Routine) - Closed Specialty Diagnoses / Procedures Referred By Contact Refer red To Contact Cardiovascular Disease Referral ID Status Reason Start Date Expiration Date Visits Requ ested Visits Authorized [id number] Closed 10/19/2020 10/19/2021 1 1 Encounter Details Date Type Department Care Team Description 11/04/2020 Office Visit Department of [place] Cardiomyopathy Dilated (HCC) (Primary Dx); Cardiovascular Medicine [address] Atrial (HCC); in [facility] Sae Reyes M.D., Gammopathy Monoclonal [address] [facility] Kam, [place].S. [place], [place] [phone] [phone] [place] [address] [place] [address] Social History Tobacco Use Types Packs/Day Years [...] or relatives? How often do you attend synagogue or More than 4 times per year 09/25/2021 church services? Do you belong to any clubs or Yes 09/25/2021 organizations such as synagogue groups, unions, fraternal or athletic groups, or [...] place to sleep or slept in a fdc (including now)? Education Answer Date Recorded What is the highest level of school Bachelor's degree (e.g., BA, AB, 05/16/2019 you have completed or the highest BS) degree you have received? Sex Assigned at Date Recorded Male 08/14/2017 2:01 PM CDT documented as of this encounter Last Filed Vital Signs Vital Sign Reading Time Taken Comments Blood Pressure 89/46 11/04/2020 11:16 AM CDT Pulse 66 11/04/2020 11:16 AM CDT Temperature - - Respiratory Rate - - Oxygen Saturation - - Inhaled Oxygen Concentration - - Weight 84.8 kg (186 lb 15.2 oz) 11/04/2020 11:16 AM CDT Height 171.7 cm (5' 7.6) 11/04/2020 11:16 AM CDT Body Mass Index 28.76 11/04/2020 11:16 AM CDT documented in this encounter Progress Notes Sae Espinal M.D., C.Yareli, M.S. - 11/04/2020 11:30 AM CDT SUBJECTIVE HISTORY OF PRESENT ILLNESS This is pleasant 85-year-old gentleman with a history of nonischemic dilated cardiomyopathy, known to Dr. Hickey and Dr. Hooper. Please refer to their notes for full details of his history. Reportedly, coronary angiography showed 30% disease, EF, [...] complete most of his testing up in [place] at the [facility], and an echocardiogram obtained late September showed [...] range with an element of prerenal insufficiency. From a symptom standpoint today he feels [...] were deferred due to his cardiac condition. Symptomatically, he endorses NYHA class II to III, at most, symptoms. No orthopnea, PND, or lower extremity edema. No palpitations, presyncope, or joel syncope; only orthostatic lightheadedness. No [facility] testing is available for my review today. OBJECTIVE PHYSICAL EXAMINATION BP (!) 89/46 (BP Location: Left arm, Patient Position: Sitting) Pulse 66 Ht 171.7 cm Wt 84.8 kg BMI 28.76 kg/m?? General: He is in no acute distress. Frail-appearing, pale. Heart: PMI not able to be palpated. Normal 1st and 2nd, regular. No murmurs could be auscultated. Lungs: Clear. Abdomen: Soft. Extremities: Show no edema. 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 Unfortunately, I do not have any echo images to review, and as such, have requested that his echo images be downloaded to our system for formal review by our colleagues here to comment on the LVEF and whether it has improved compared to his previous echo with us here in 2020. Further, I would like commentary on the increased wall thickness that was commented upon in the interpretation of the outside echo. I did offer the patient to have an MRI donehere. However, he is rather claustrophobic and transportation is an issue, and as such, this has been deferred. In the meantime, I will order some blood work here to include a troponin T, SMOGA, and urine monoclonal protein test as well as an ECG as we do not have 1 on file and he was reportedly said to have a left bundle branch block previously. With regard to current management, I have asked him to cut back his torsemide from 10 mg on Monday, Monday, Monday to every 3rd or 4th day or even in the future on an as-needed basis for weight gainof 3 pounds or more in 24 hours or 5 pounds or more in a week. I have also encouraged oral intake. Magaly also asked Louisa Ahumada to reach out to the patient next week to assess symptoms and blood pressure. If he remains wobbly and hypotensive, then we may need to deescalate the Entresto dosage. However, for now, continue as. Finally, with regard to followup, pending the results of the interpretation of the echo, we may decide upon more workup for cardiac amyloidosis. However, for now, hold off. I also shared with the patient that in the future there is a good chance that he will need to be seen with our nurse practitioners due to pent-up demand for MD slots. He and his appreciate this. All questions to the best of my ability. Sae Chavarria M.D., C.M., M.S. 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 ~Suggest repeat testing in 6-12 months if clinically indicated. Will obtain an e-consult with our dysproteinemia team to ensure nothing further needs to be done for now. Review of outside echocardiogram does not show findings concerning for amyloidosis and ventricular ruby are not particularly thick. He may have significant Aortic Insufficiency however. I will requestour on echo be performed here to better assess that and have it formally reviewed in the valve clinic. documented in this encounter Plan of Treatment Scheduled Referrals Name Type Priority Associated Order Schedule Diagnoses Cardiovascular Disease Outpatient Referral Routine Expected: office visit (clinic) 2020 (Approximate), Expires: 11/05/2023 documented as of this encounter Results Echo Outside Study Review (11/05/2020 2:11 PM CDT) [facility] Time Signature Ejection Fraction 36 MC CV [...] effusion. For the complete report, see the [employer] Documents. Narrative 11/05/2020 5:09 PM CDT For the complete report, see the [employer] Documents. Final Impressions 1. Outside echo performed at [facility] on 10/16/2020. 2. Severely enlarged left ventricular [...] 02/2021 For the complete report, see the [employer] Documents. Final Impressions 1. Outside echo performed at [facility] on 10/16/2020. 2. Severely enlarged left ventricular [...] the [employer] Documents. Sae Chavarria M.D., Kam, M.S. CV ECHO PROCEDU RES ECG 12 Lead (11/04/2020 1:33 PM CDT) P athologist Signature Ventricular Rate 67 BPM MUSE ECG/Min AK Interval 212 ms MUSE QRSD Interval 180 ms MUSE QT Interval 474 ms MUSE QTC Interval 500 ms MUSE P [place] 57 degrees MUSE R [place] 20 degrees MUSE T Wave [place] 167 degrees MUSE Specimen Anatomical Collection Method Collection Time Receive d Time (Source) Location / / Volume Laterality 11/04/2020 1:33 PM 1:42 CDT PM CDT Impressions MUSE - 11/04/2020 1:42 PM CDT Sinus rhythm with sinus arrhythmia with 1st degree A-V block Left bundle branch block with secondary ST-T abnormalities Prolonged QT When compared with ECG of 26-MAY-2019 21 :14, Vent. rate has decreased BY ??57 BPM AK interval has increased Reviewed by LUBNA Winters Narrative This result has an attachment that is no t available. Procedure Note Hayden Ruvalcaba M.D. - 11/04/2020Fo rmatting of this note might be different from the original. IMPRESSION: Sinus rhythm with sinus arrhythmia with 1st degree A-V block Left bundle branch block with secondary ST-T abnormalities Prolonged QT When compared with ECG of 26-MAY-2019 21 :14, Vent. rate has decreased BY 57 BPM AK interval has increased Reviewed by LUBNA Winters Sae Chavarria M.D., Kam, M.S. ECG ORDERABLES Performing Organization Address City/State/ZIP Code Phon e Number MUSE MUSE NA Monoclonal Protein Study, Random, Urine (11/04/2020 1:06 PM CDT) [facility] Method Time Signature Protein, Total, 8 [...] CDT See Immunofixation. Immunofixation Negative Negative 11/10/2020 SDS Flag, Random, U 2:30 PM CDT Immunofixation, No monoclonal 11/10/2020 [facility] Random, U protein 2:30 PM CDT detected. Comment: ----ADDITIONAL INFORMATION---- This test has been modified from the man ufacturer's instructions. Its performance characteristics were determi joshua by [facility] in a manner consistent with CLIA requirements. This test has not been cleared or approved by the U.S. Food and Drug Administration . Specimen Anatomical Collection Method Collection Time Receive d Time (Source) Location / / Volume Laterality Urine (Urine, 11/04/2020 1:06 PM 11/05/19 1:36 Clean Catch) CDT PM CDT Sae Chavarria M.D., C.M., M.S. LAB URINE ORDER EHSAN Performing Organization Address City/State/ZIP Code Phon e Number [facility] [address] [place], [place] [address] [place] [address] [facility] [place] 200 [facility] [place] [address] Laboratory Medicine and Pathology [address] [place] (ABNORMAL) Troponin T, 5th Generation (11/04/2020 12:55 [...] City/State/ZIP Code Phon e Number [facility] - [address] [phone] [facility] [place] [address] Laboratories-[address] (ABNORMAL) Monoclonal Gammopathy Diagnostic (11/04/2020 12:55 PM CDT) Patholo gist Method Time Signature Therapeutic No 11/05/2020 [facility] Antibody 6:09 AM CDT Administered? Total Protein, 6.0 (L) 6.3 - 7.9 11/05/2020 [facility] S g/dL 7:25 AM CDT [place] Free 1.88 0.3300 - 11/04/2020 [facility] Light Chain, S 1.94 mg/dL 7:22 PM CDT Lambda Free 2.91 (H) 0.5700 - 11/04/2020 [facility] Light Chain, S 2.63 mg/dL 7:22 PM CDT [place]/Lambda 0.6460 0.2600 - 11/04/2020 [facility] FLC Ratio [...] and its performa nce characteristics determined by [facility] in a manner consistent with CLIA requirements. This test has not been cleared or approved by the U.S. Dewayne d and Drug Administration. Specimen Anatomical Collection Method Collection Time Receive d Time (Source) Location / / Volume Laterality Blood (Blood, 11/04/2020 12:55 11/04/2020 6:08 Venous) PM CDT PM CDT Narrative [facility] R - 11/06/2020 3:59 PM CDT Specimen Information: Specimen ID: [id number] Specimen Type: Blood Specimen Collection Start Date: 11/05/19 12:55 PM Specimen Received Date: 11/04/2020 ??6:0 8 PM Specimen ID: [id number] Specimen Type: Blood Specimen Collection Start Date: 11/05/19 12:55 PM Specimen Received Date: 11/05/2020 ??6:0 9 AM Sae Chavarria M.D., C.M., M.S. LAB BLOOD ADD-O N Performing Organization Address City/State/ZIP Code Phon e Number [facility] [address] [place], [place] [address] [place] [address] [facility] [place] [address] Laboratory Medicine and Pathology [address] [place] documented in this encounter Visit Diagnoses Diagnosis Cardiomyopathy Dilated (HCC) - Primary Flutter Atrial (HCC) Gammopathy Monoclonal Cardiomyopathy Dilated (HCC) Flutter Atrial (HCC) Cardiomyopathy Dilated (HCC) Flutter Atrial (HCC) documented in this encounter Care Teams Traveling Passenger Agent Relationship Specialty Start Date End Date Elsewhere, Pcp PCP - General Internal Medicine 05/29/19 documented as of this encounter
--- OUTSIDE RECORDS SUMMARY | 2022-01-16 15:56 | XMS_ITS | Encounter Summary ---
:1935 Author Organization [facility] Address [address] [place] [address] Care Team Providers Name Role Phone Elsewhere, Pcp Primary Care Provider Unavailable Reason for Visit Reason Comments Med Refill Encounter Details Date Type Department Care Team Description 06/21/2019 Refill Department of Cardiovascular Amy Borrero V., Med Refill Medicine in [place], [place] Bryan, Ph.D. [address] [place] [address] [address] [place] [address] [place], [place] [phone] (Wo rk) Social History Tobacco Use Types [...] or relatives? How often do you attend faith or More than 4 times per year 09/25/2021 zoroastrianism services? Do you belong to any clubs or Yes 09/25/2021 organizations such as faith groups, unions, fraternal or athletic groups, or [...] place to sleep or slept in a retirement (including now)? Education Answer Date Recorded What is the highest level of school Bachelor's degree (e.g., BA, AB, 05/16/2019 you have completed or the highest BS) degree you have received? Sex Assigned at Date Recorded Male 08/14/2017 2:01 PM CDT documented as of this encounter Miscellaneous Notes Telephone Encounter - Adriana Varner - 06/21/2019 9:30 AM CDT Images from the original note were not included. Nurse review: Unable to pend medication to provider; Clarification requests. Name of Medication: Eliquis/Torsemide Strength: 5mg/10mg Last Seen: 06-03-19 documented in this encounter Plan of Treatment Not on filedocumented as of this encounter Visit Diagnoses Not on filedocumented in this encounter Care Teams Fermenting Cellars Receiver Relationship Specialty Start Date End Date Elsewhere, Pcp PCP - General Internal Medicine 05/29/19 documented as of this encounter
--- OUTSIDE RECORDS SUMMARY | 2022-01-16 15:56 | XMS_ITS | Encounter Summary ---
:1935 Author Organization [facility] Address [address] [place] [address] Care Team Providers Name Role Phone Elsewhere, Pcp Primary Care Provider Unavailable Reason for Visit Reason Comments Med Refill Encounter Details Date Type Department Care Team Description 02/08/2020 Refill Department of Cardiovascular Paul Hickey, Med Refill Medicine in [facility] [address] [place] [address] [address] [place] [address] [place] [phone] Social History Tobacco Use Types Packs/Day Years [...] on filedocumented in this encounter Care Teams Catering Attendant Relationship Specialty Start Date End Date Elsewhere, Pcp PCP - General Internal Medicine 05/29/19 documented as of this encounter
--- OUTSIDE RECORDS SUMMARY | 2022-01-16 15:56 | XMS_ITS | Encounter Summary ---
:1935 Author Organization [facility] Address [address] [place] [address] Care Team Providers Name Role Phone Elsewhere, Pcp Primary Care Provider Unavailable Encounter Details Date Type Department Care Team Description 06/03/2019 Orders Only Department of Cardiovascular Aditya Schaeffer Medicine in [place], (Work ) [place] [address] [place] [phone] Social History Tobacco Use Types Packs/Day [...] or relatives? How often do you attend roman catholic or More than 4 times per year 09/25/2021 mandaeism services? Do you belong to any clubs or Yes 09/25/2021 organizations such as roman catholic groups, unions, fraternal or athletic groups, or [...] on filedocumented in this encounter Care Teams Room Service Waiter Relationship Specialty Start Date End Date Elsewhere, Pcp PCP - General Internal Medicine 05/29/19 documented as of this encounter
--- OUTSIDE RECORDS SUMMARY | 2022-01-16 15:56 | XMS_ITS | Encounter Summary ---
:1935 Author Organization [facility] Address [address] [place] [address] Care Team Providers Name Role Phone Elsewhere, Pcp Primary Care Provider Unavailable Reason for Visit Reason Comments Med Refill Encounter Details Date Type Department Care Team Description 06/19/2019 Refill Outpatient Surgery and Sybil Eldridge R.N. Med Refill Procedural Admissions in [place], [place] [address] [place], [place] [phone] Social History Tobacco Use Types Packs/Day Years [...] or relatives? How often do you attend pentecostalism or More than 4 times per year 09/25/2021 latter day services? Do you belong to any clubs or Yes 09/25/2021 organizations such as pentecostalism groups, unions, fraternal or athletic groups, or [...] on filedocumented in this encounter Care Teams Staffing Assistant Relationship Specialty Start Date End Date Elsewhere, Pcp PCP - General Internal Medicine 05/29/19 documented as of this encounter
--- OUTSIDE RECORDS SUMMARY | 2022-01-16 15:56 | XMS_ITS | Encounter Summary ---
:1935 Author Organization [facility] Address [address] [place] [address] Care Team Providers Name Role Phone Elsewhere, Pcp Primary Care Provider Unavailable Reason for Visit Reason Comments Previsit Preparation Encounter Details Date Type Department Care Team Description 08/08/2019 Clinical Orlando Guzman, Previs it Communication Center for Paul Zamudio, Chevy Transplantation and [facility]Julius Clinical Regeneration [address] [facility] in [facility] [phone] [place] [address] [place], [place] (Work) [phone] Social History Tobacco Use [...] More than 4 times per year 09/25/2021 mormon services? Do you belong to any clubs [...] place to sleep or slept in a residential (including now)? Education Answer Date Recorded What is the highest level of school Bachelor's degree (e.g., BA, AB, 05/16/2019 you have completed or the highest BS) degree you have received? Sex Assigned at Date Recorded Male 08/14/2017 2:01 PM CDT documented as of this encounter Miscellaneous Notes Telephone Encounter - Yeni Licona R.N. - 08/08/2019 8:51 AM CDT SUBJECTIVE Summary of Pre-visit Nurse Phone Call CHIEF COMPLAINT / REASON FOR CV VISIT on 08-12-[address] Hickey Follow up Questions patient would like provider to address: Nii has no new symptoms, and his weight has been managed well within the set parameters per his 's report. She also reports his SOB is improved. Information discussed: questions, concerns, allergies, medications Current cardiac symptoms: None Med Rec: done Allergies: Updated Mr. Franz will be contacted for NF2F visit at the currently scheduled time. documented in this encounter Plan of Treatment Not on filedocumented as of this encounter Visit Diagnoses Not on filedocumented in this encounter Care Teams Item Repair Manager Relationship Specialty Start Date End Date Elsewhere, Pcp PCP - General Internal Medicine 05/29/19 documented as of this encounter
--- OUTSIDE RECORDS SUMMARY | 2022-01-16 15:56 | XMS_ITS | Encounter Summary ---
:1935 Author Organization [facility] Address [address] [place] [address] Care Team Providers Name Role Phone Elsewhere, Pcp Primary Care Provider Unavailable Reason for Visit Reason Comments Med Refill Encounter Details Date Type Department Care Team Description 12/06/2019 Refill Department of Cardiovascular Paul Hickey, Med Refill Medicine in [facility] [address] [place] [address] [address] [place] [address] [place] [phone] [phone] Social History Tobacco Use Types Packs/Day Years [...] this encounter Miscellaneous Notes Telephone Encounter - Skye Cruz, RCareyN. - 12/10/2019 10:35 AM CDT See portal message for response. Patient takes 10 mg every other day and prn if weight gain of 2 lbsin one day or 5 lbs in 1 week. Sending 90 day supply with extra tablets. Telephone Encounter - Skye Cruz RCareyN. - 12/06/2019 3:18 PM CDT Portal message to patient for prescription dosage clarification. Telephone Encounter - Adriana Varner - 12/06/2019 9:36 AM CDT Nurse review: Unable to pend medication to provider; Discrepancy. Directions on refill request do not match the current med list. Name of Medication: Torsemide Strength: 10mg Frequency: Sig - Route: Take 1 tablet (10 mg total) by mouth 3 (three) times a week. Weigh yourself daily. Take an extra 10 mg, if you gain 2 lb in 1 day or 5 lb in 1 week. - oral Requesting: Take 1 tablet every other day. Weigh yourself daily. Take an extra 10 mg, if you gain 2 lb in 1 day or 5 lb in 1 week Last Seen: 07-24-19 (Virtual) documented in this encounter Plan of Treatment Not on filedocumented as of this encounter Visit Diagnoses Not on filedocumented in this encounter Care Teams Conference Planner Relationship Specialty Start Date End Date Elsewhere, Pcp PCP - General Internal Medicine 05/29/19 documented as of this encounter
--- OUTSIDE RECORDS SUMMARY | 2022-01-16 15:56 | XMS_ITS | Encounter Summary ---
:1935 Author Organization [facility] Address [address] [place] [address] Care Team Providers Name Role Phone Elsewhere, Pcp Primary Care Provider Unavailable Reason for Referral Outpatient (Routine) - Closed Specialty Diagnoses / Procedures Referred By Contact Refer red To Contact Video Medicine Diagnoses Cardiomyopathy Dilated (HCC) Paul Hickey [place] M.D. 200 [place] [address] Referral ID Status Reason Start Date Expiration Date Visits Requ ested Visits Authorized [id number] Closed 08/12/2019 08/11/2020 1 1 Reason for Visit Outpatient (Routine) - Closed Specialty Diagnoses / Procedures Referred By Contact Refer red To Contact Video Medicine Diagnoses Cardiomyopathy Dilated (HCC) Paul Hickey [place] M.D. 200 [place] [address] Referral ID Status Reason Start Date Expiration Date Visits Requ ested Visits Authorized [id number] Closed 07/24/2019 07/23/2020 1 1 Encounter Details Date Type Department Care Team Description 08/12/2019 Telemedicine Department of [place], Cardiomyopathy Dilated Cardiovascular Medicine Paul Zamudio M.D. (HCC) (Primary Dx) in [facility] [address] [facility] [address] [place] [phone] Social History Tobacco Use Types Packs/Day Years [...] documented as of this encounter Consult Notes Paul Hickey M.D. - 08/12/2019 11:15 AM CDT REFERRING SOURCE Self SUBJECTIVE CHIEF COMPLAINT / REASON FOR VISIT Nii Franz is a 84 y.o. male who presents for evaluation of heart failure and dilated cardiomyopathy. HISTORY OF PRESENT ILLNESS I spoke with him by audiovisual connection. His was with him today. He is known to me from our previous conversations. In April of 2019 he was seen by my colleague Dr. Borrero who discovered a new left bundle branch block and reported an ejection fraction of 22% on outside study. He was hospitalized on May 25 for new onset atrial fibrillation with rapid ventricular response. Coronary angiography showed mild CAD with obstructions of 30%. Echocardiography showed an EF of 15-20%, LV end-diastolic diameter 71 mm,and RV systolic pressure estimated at 56. He was started on metoprolol 50 mg and lisinopril 2.5 mg. When seen in subsequent outpatient follow-up his blood pressure was 94/52. we have had several telephone visits and have been making adjustments in medications. Since I last spoke with him on July 23he has generally been feeling better. He had 1 episode of sodium indiscretion that caused his weightto go up about 3 lb. He took an extra dose of 10 mg torsemide and his weight returned to normal baseline. At this point he is about 165.9 lb on his home scale and he is not carrying visible edema. He does not have PND, orthostatic lightheadedness, syncope, or awareness of palpitations. Systolic blood pressures have ranged from 92 to 117. He is walking twice a day for about 10-15 minutes and he does not experienced significant fatigue or dyspnea with this level of activity. ?? REVIEW OF SYSTEMS Negative except as noted. The following portions of the patient's history were reviewed and updated as appropriate: allergies,current medications, family history, medical history, social history, surgical history and problem list. MEDICATIONS Current Medications: ??? acetaminophen (TYLENOL) 500 mg tablet, Take 1,000 mg by mouth 3 (three) times a day. ??? apixaban (ELIQUIS) 5 mg tablet, Take 1 tablet (5 mg total) by mouth 2 (two) times a day. ??? Carafate 100 mg/mL suspension, TAKE 2 TEASPOONFUL (10 ML) THREE TIMES A DAY AFTER MEALS ??? famotidine (PEPCID) 40 mg tablet, Take 1 tablet (40 mg total) by mouth at bedtime. ??? fluticasone (FLONASE) 50 mcg/actuation nasal spray, Administer 1 spray into each nostril daily as needed for rhinitis. ??? levothyroxine (SYNTHROID, LEVOTHROID) 100 mcg tablet, Take 1 tablet (100 mcg total) by mouth every morning. ??? lisinopriL (PRINIVIL,ZESTRIL) 2.5 mg tablet, Take 1 tablet (2.5 mg total) by mouth daily. ??? loperamide (IMODIUM A-D) 2 mg capsule, [...] crush or chew. ??? miscellaneous medical supply [facility], CPAP machine for [...] (four) times a day as needed. ??? simvastatin (ZOCOR) 20 mg tablet, Take [...] day or 5 lb in 1 week. ??? venlafaxine XR (EFFEXOR-XR) 150 mg 24 hr capsule, Take 150 mg by mouth daily with breakfast. ??? vit C/E/Zn/coppr/lutein/zeaxan (PRESERVISION AREDS 2 ORAL), Take 1 tablet by mouth 2 (two) timesa day. No results found for this or any previous visit (from the past 72 hour(s)). See below ASSESSMENT / PLAN #1 Cardiomyopathy Dilated (HCC) From a clinical point of view he is stable, perhaps somewhat better. He has enough blood pressure reserve that I think we can go up from 50 b.i.d. to 75 b.i.d. of Toprol-XL. His most recent laboratory work available on care everywhere shows a BNP of 4021, potassium 4.7, and creatinine 1.3. I would like to make arrangements to have an audiovisual consultation again in about 1 month. I have urged him to continue and to increase his daily exercise. Paul Hickey M.D. documented in this encounter Plan of Treatment Scheduled Referrals Name Type Priority Associated Diagnoses Order S chedule Video anyplace Outpatient Referral Routine Cardiomyopathy Dila radha Expected: visit (HCC) 09/12/2019 (Approximate), Expires: 08/11/2022 documented as of this encounter Visit Diagnoses Diagnosis Cardiomyopathy Dilated (HCC) - Primary documented in this encounter Care Teams Internal Medicine Veterinary Technician Relationship Specialty Start Date End Date Elsewhere, Pcp PCP - General Internal Medicine 05/29/19 documented as of this encounter
--- OUTSIDE RECORDS SUMMARY | 2022-01-16 15:56 | XMS_ITS | Encounter Summary ---
:1935 Author Organization [facility] Address [address] [place] [address] Care Team Providers Name Role Phone Elsewhere, Pcp Primary Care Provider Unavailable Reason for Referral Outpatient (Routine) - Closed Specialty Diagnoses / Procedures Referred By Contact Refer red To Contact Cardiovascular Disease Paul Hickey [facility] Mirta Zamudio M.D. 200 [place] [address] Referral ID Status Reason Start Date Expiration Date Visits Requ ested Visits Authorized [id number] Closed 06/26/2019 06/25/2020 1 1 Reason for Visit Outpatient (Routine) - Closed Specialty Diagnoses / Referred By Contact Referred To Contact Procedures Cardiovascular Diseases / Diagnoses Chronic Systolic (Congestive) Heart Failure (HCC) Louie Borrero [facility] Cardiovascular Disease Byran Weiner, Ph.D. [address] [place] [phone] Referral ID Status Reason Start Date Expiration Date Visits Requ ested Visits Authorized [id number] Closed 06/03/2019 06/02/2020 1 1 Encounter Details Date Type Department Care Team Description 06/26/2019 Virtual Visit Department of [place] Cardiomyopath y Dilated (HCC) (Primary Dx); Cardiovascular Medicine Paul Zamudio M.D. Chronic Systolic (Congestive) Heart Fail ure (HCC); in [facility] public [address] [facility] Acute Systolic (Congestive) Heart Failur e ([facility]); [address] [place], [place] Flutter Atrial ([facility] [place] [phone] Social History Tobacco Use Types Packs/Day Years [...] or relatives? How often do you attend jew or More than 4 times per year 09/25/2021 sabianism services? Do you belong to any clubs or Yes 09/25/2021 organizations such as jew groups, unions, fraternal or athletic groups, or [...] documented as of this encounter Progress Notes Paul Hickey M.D. - 06/26/2019 3:00 PM CDT [id number] PHONE VISIT A phone call care discussion in the setting of the national COVID19 pandemic was completed consistent with [facility] institutional direction. This visit was peformed by telephone call today. Louie Borrero MD . HISTORY OF PRESENT ILLNESS Mr. iNi Franz is a 84 y.o. male who has a history of Vicente's esophagus, obstructive sleep apnea, hypothyroidism, and recently discovered nonischemic dilated cardiomyopathy. In April of 2019 he was seen [...] outpatient follow-up his blood pressure was 94/52. Laboratory studies includeTSH 7.3, T4 1.5, hemoglobin 12.8, potassium 4.1, creatinine 1.1. Since he was last seen he has continued on his medications. He is noticing that he has lightheadedness on standing up. He has been checking blood pressures in the highest systolic is been 117 in the low his systolic has been about 70. His weight has come down by about 7 lb and has leveled off. He doesnot have PND, syncope, awareness of sustained palpitations. He had a Holter monitor performed and the result is not accessible on the electronic medical record; they will try to fax it to me. DIAGNOSTICS I have personally reviewed the patient's available current laboratory, imaging, and other diagnosticstudies. ASSESSMENT / PLAN #1 Chronic Systolic (Congestive) Heart Failure (HCC) See below. #2 Cardiomyopathy Dilated (HCC) He has a nonischemic dilated cardiomyopathy with a new left bundle branch block. I would consider him to have stage C heart failure and NYHA class 3 symptoms. Volume status may be depleted and I have asked him to reduce his torsemide from 10 mg a day to 10 mg every other day. He is already monitoring blood pressure and weight and keeping a 2 L fluid restriction. Is for initial follow-up I would like to speak with him by phone again in about 1 week to check on his symptom status. I would like to see him with a hvvs-dc-rcee visit when that is possible. We need to titrate his medications upward as hisblood pressure allows. We need to consider starting digoxin is and we need to arrange for a cardiomyopathy gene panel to be drawn with genetics consultation. He has a positive family history in his father and, possibly, his grandfather. #3 Acute Systolic (Congestive) Heart Failure (HCC) #4 Flutter Atrial (HCC) Follow-up and testing: See note above. Initial follow-up will be by telephone in 1 week. Subsequent follow-up will be decided at that time. Decision Priority (Choose one): Tier1 -Urgent (as soon as possible) Next visit preference: Phone I spent 40 minutes reviewing records, testing, discussion and follow up. documented in this encounter Plan of Treatment Scheduled Referrals Name Type Priority Associated Order Schedule Diagnoses Cardiovascular Disease Outpatient Referral Routine Ordered: office visit (clinic) 2019 documented as of this encounter Visit Diagnoses Diagnosis Cardiomyopathy Dilated (HCC) - Primary Chronic Systolic (Congestive) Heart Fail ure (HCC) Acute Systolic (Congestive) Heart Failur e (HCC) Flutter Atrial (HCC) documented in this encounter Care Teams Groover And Turner Relationship Specialty Start Date End Date Elsewhere, Pcp PCP - General Internal Medicine 05/29/19 documented as of this encounter
--- OUTSIDE RECORDS SUMMARY | 2022-01-16 15:56 | XMS_ITS | Encounter Summary ---
:1935 Author Organization [facility] Address [address] [place] [address] Care Team Providers Name Role Phone Elsewhere, Pcp Primary Care Provider Unavailable Encounter Details Date Type Department Care Team Description 02/11/2020 Documentation Department of Cardiovascular MariaaTracey M.D., Medicine in [facility] [address] [place] [address] [address] [place] [phone] (Wo rk) Social History Tobacco Use Types [...] or relatives? How often do you attend lutheran or More than 4 times per year 09/25/2021 episcopal services? Do you belong to any clubs or Yes 09/25/2021 organizations such as lutheran groups, unions, fraternal or athletic groups, or [...] documented as of this encounter Progress Notes Tracey Leroy M.D. - 02/11/2020 4:25 PM CST Patient not seen, note created for the purposes of the care coordination order. I have determined this patient is eligible for Complex Chronic Care Management because the patient has two or more chronic conditions expected to last at least 12 months or until the of the patient, and that place the patient at significant risk of , acute exacerbation/decompensation or functional decline. A RN Senior Software Engineer Analytics will discuss details of care coordination with the patient, including cost sharing and documenting patient consent. IN MAKER HAND documented in this encounter Plan of Treatment Not on filedocumented as of this encounter Visit Diagnoses Not on filedocumented in this encounter Care Teams Pattern Cleaner Relationship Specialty Start Date End Date Elsewhere, Pcp PCP - General Internal Medicine 05/29/19 documented as of this encounter
--- OUTSIDE RECORDS SUMMARY | 2022-01-16 15:56 | XMS_ITS | Encounter Summary ---
:1935 Author Organization [facility] Address [address] [place] [address] Care Team Providers Name Role Phone Elsewhere, Pcp Primary Care Provider Unavailable Reason for Visit Outpatient (Routine) - Closed Specialty Diagnoses / Procedures Referred By Contact Refer red To Contact Neurology Diagnoses Meningioma Brain (HCC) Mario Cowan M.D. [facility] [address] [place] [phone] Referral ID Status Reason Start Date Expiration Date Visits Requ ested Visits Authorized [id number] Closed 05/28/2019 05/27/2020 1 1 Encounter Details Date Type Department Care Team Description 07/10/2019 Virtual Visit Department of Christopher Harrison Brain (HCC) Neurology madelyn Rdz M.D. [place], [place] [address] [place] [address] [place] [phone] Social History Tobacco Use Types Packs/Day Years [...] or relatives? How often do you attend baptism or More than 4 times per year 09/25/2021 scientology services? Do you belong to any clubs or Yes 09/25/2021 organizations such as baptism groups, unions, fraSnapchat or athletic groups, or school groups? How [...] documented as of this encounter Progress Notes Christopher Harrison M.D. - 07/10/2019 2:30 PM CDT Neuro-Oncology telephone visit note. This visit took place via telephone from my office to the patient's home. He was in the company of his . The arrangement was necessary due to current COVID-19 restrictions. Chief complaint: Follow-up: 1. Right frontal meningioma 2. Previous concerns regarding minimal parkinsonism, dopamine unresponsive, REM sleep behavior disorder, postural tremor 3. Recent hospital associated confusion History of present illness: I last saw Mr. Franz in June 2015. At that time, I thought that I communicated the need for ongoing surveillance over time, but somehow, patient took the impression that as long as he felt he was doing well he did not need to return. As it turns out, from a neurologic perspective, neither he nor his have felt the need to return. They feel that he has had little by way of decline in his gait or balance or motor function. No worsening tremor. Sleep-related disturbances have declined significantly. Both he and his feel that his sleep apnea has been and is beingadequately addressed. Neither he nor his feel there has been a decline in his cognitive capaciti es. That said, there is no available corroborating history. They do live in a small apartment in a safe setting. Patient continues to have ongoing surveillance with regard to Vicente's esophagus with T1b adenocarcinoma. In addition he has ongoing surveillance regarding intermediate risk bladder cancer diagnosed March 2018. Unfortunately, recently he was also found to have congestive heart failure in the setting of rapid ventricular response atrial fibrillation. Ejection fraction was 15-20%. Medications were appropriately added, others modified. He has had ongoing surveillance with Dr. Hickey and has beenstable since hospital discharge on May 29, 2019. During his recent [facility] hospitalization however he had a period of a few days of hospital associated delirium. Consequently a CT head was performed, his 1st imaging since June of 2015. Interpreting radiologist suggested slight increase in the size of the calcified right frontal meningioma, maximal diameter 4.9 cm. If there was volume increase, difficult to assess with certainty comparing CT to MRI, it was but no more than 2-4 mm. There was no new regional mass effect than there was no progression of associated kelsie lesional changes suggestive of edema/gliosis. Consulting neurology team agreed that there was little clinically significant change, and nothing that represented attribute rondon to in-hospital symptoms. Indeed, per patient and his , in-hospital delirium eventually cleared and he is at baseline. Allowed opportunity to offer additional complaints or concerns. There were none. Is best as I can discern neurologic symptom inventory does not reveal any new concerns. Again, I specifically note that while patient and his are very eloquent, pleasant, well-spoken individuals, I would not be surprised if there is mild ongoing cognitive impairment and I specifically note that there was no corroborating history today. Therefore within these limits, all seems neurologically stable. Given the patient's overall cardiovascular status, and life expectancy given this status, there is no need for further meningioma surveillance. There will likely never be in need for radiotherapy in this patient's life time, and he would never be a surgical candidate under the circumstances as outlined. It appears as if his mild cognitive impairment in concerns regarding mild parkinsonism have not further evolved. Therefore, neurologic and Neuro-Oncology follow-up will be left open ended. I would behappy to see him or speak with them in tele conference for video conference on an as-needed basis. Time: 25 minutes documented in this encounter Plan of Treatment Not on filedocumented as of this encounter Visit Diagnoses Diagnosis Meningioma Brain (HCC) documented in this encounter Care Teams Solar Installation Supervisor Relationship Specialty Start Date End Date Elsewhere, Pcp PCP - General Internal Medicine 05/29/19 documented as of this encounter
--- OUTSIDE RECORDS SUMMARY | 2022-01-16 15:56 | XMS_ITS | Encounter Summary ---
:1935 Author Organization [facility] Address [address] [place] [address] Care Team Providers Name Role Phone Elsewhere, Pcp Primary Care Provider Unavailable Encounter Details Date Type Department Care Team Description 12/12/2019 Orders Only Department of [place], Cardiomyopathy Dilated Cardiovascular Medicine [facility], ([facility] ) (Primary Dx) in [facility] M.B.B.S. [address] [place] [address] Social History Tobacco Use Types Packs/Day [...] Primary documented in this encounter Care Teams Relief Manager Relationship Specialty Start Date End Date Elsewhere, Pcp PCP - General Internal Medicine 05/29/19 documented as of this encounter
--- OUTSIDE RECORDS SUMMARY | 2022-01-16 15:56 | XMS_ITS | Encounter Summary ---
:1935 Author Organization [facility] Address [address] [place] [address] Care Team Providers Name Role Phone Elsewhere, Pcp Primary Care Provider Unavailable Reason for Visit Reason Comments Med Refill Encounter Details Date Type Department Care Team Description 06/18/2019 Refill Department of Cardiovascular Amy Borrero V., Med Refill Medicine in [place], [place] Byran, Ph.D. [address] [place] [address] [address] [place] [address] [place], [place] [phone] (Wo rk) Social History Tobacco Use Types [...] on filedocumented in this encounter Care Teams Sample Maker Original Relationship Specialty Start Date End Date Elsewhere, Pcp PCP - General Internal Medicine 05/29/19 documented as of this encounter
--- OUTSIDE RECORDS SUMMARY | 2022-01-16 15:56 | XMS_ITS | Encounter Summary ---
:1935 Author Organization [facility] Address [address] [place] [address] Care Team Providers Name Role Phone Elsewhere, Pcp Primary Care Provider Unavailable Reason for Visit Reason Comments Appointment Encounter Details Date Type Department Care Team Description 06/17/2019 Clinical Communication [facility], Appointment Center for Paul Zamudio M.D. Transplantation and [address] [place] [address] Clinical [facility] in [place], [place] [address] [place] [address] [place] [address] (Work) [phone] Social History Tobacco Use Types Packs/Day Years [...] or relatives? How often do you attend adventism or More than 4 times per year 09/25/2021 zoroastrian services? Do you belong to any clubs or Yes 09/25/2021 organizations such as adventism groups, unions, fraternal or athletic groups, or [...] this encounter Miscellaneous Notes Telephone Encounter - Luz Caldera, R.N. - 06/17/2019 1:34 PM CDT SUBJECTIVE CHIEF COMPLAINT / REASON FOR CALL Appointment Information Discussed RN contacted patient to convert upcoming appointment to non face to face visit. Patient agreed encounter changed due to COVID19. documented in this encounter Plan of Treatment Not on filedocumented as of this encounter Visit Diagnoses Not on filedocumented in this encounter Care Teams Care Information Associate Relationship Specialty Start Date End Date Elsewhere, Pcp PCP - General Internal Medicine 05/29/19 documented as of this encounter
--- OUTSIDE RECORDS SUMMARY | 2022-01-16 15:56 | XMS_ITS | Encounter Summary ---
:1935 Author Organization [facility] Address [address] [place] [address] Care Team Providers Name Role Phone Elsewhere, Pcp Primary Care Provider Unavailable Encounter Details Date Type Department Care Team Description 12/23/2019 Clinical Communication [facility] of [facility] Cardiovascular Medicine [facility] in [facility] M.B.B.S. [address] [place] [phone] Social History Tobacco Use Types Packs/Day [...] or relatives? How often do you attend yazidi or More than 4 times per year 09/25/2021 yazidism services? Do you belong to any clubs or Yes 09/25/2021 organizations such as yazidi groups, unions, fraternal or athletic groups, or [...] this encounter Miscellaneous Notes Telephone Encounter - Bia Hooper M.B.B.S. - 12/23/2019 6:15 PM CDT Phone call documentation: I called Mr. Franz for status check. He is doing well from the cardiac standpoint and feels more energetic. He recently increased his lisinopril to 5 mg daily from 2,5. He did not report significant dizziness or passing out. I advised that he increases the dose to 7,5 mg for one week and then to 10 mg daily. Will check on BMP early next week. I will not renew his lisinopril prescription anticipating transition to Entresto. Will re-assess his LVEF in 3 months to decide on TAPING FOREMAN-D. 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 His chronic stable heart failure is not a contra-indication especially that is his clinical status and LVEF are improving. Plan was discussed with Cj Luna. Advanced Cardiology/Cardiac Amyloidosis Fellow, PGY-8 Department of Cardiovascular Medicine [facility] Pager: [phone] E-mail: [email or web address] documented in this encounter Plan of Treatment Not on filedocumented as of this encounter Visit Diagnoses Not on filedocumented in this encounter Care Teams Event Services Manager Relationship Specialty Start Date End Date Elsewhere, Pcp PCP - General Internal Medicine 05/29/19 documented as of this encounter
--- OUTSIDE RECORDS SUMMARY | 2022-01-16 15:56 | XMS_ITS | Encounter Summary ---
:1935 Author Organization [facility] Address [address] [place] [address] Care Team Providers Name Role Phone Elsewhere, Pcp Primary Care Provider Unavailable Encounter Details Date Type Department Care Team Description 07/18/2019 Orders Only Department of [facility], Chronic Systol Cardiovascular Medicine Paul Zamudio M.D. (Congestive) Heart in [facility] [place] [address] [facility] Failure (HCC) [address] [place], [place] (Primary Dx) [place] [phone] Social History Tobacco Use Types Packs/Day Years [...] More than 4 times per year 09/25/2021 samaritan services? Do you belong to any clubs [...] as of this encounter Visit Diagnoses Diagnosis Chronic Systolic (Congestive) Heart Fail ure (HCC) - Primary documented in this encounter Care Teams Sewing Machine Operator Semiautomatic Relationship Specialty Start Date End Date Elsewhere, Pcp PCP - General Internal Medicine 05/29/19 documented as of this encounter
--- OUTSIDE RECORDS SUMMARY | 2022-01-16 15:56 | XMS_ITS | Encounter Summary ---
:1935 Author Organization [facility] Address [address] [place] [address] Care Team Providers Name Role Phone Elsewhere, Pcp Primary Care Provider Unavailable Encounter Details Date Type Department Care Team Description 12/11/2019 Ancillary Department of [facility], Cardiomyopathy Dilated Procedure Radiology in Paul Zamudio M.D. ([facility]) [place], [address] [place] [address] [place] [phone] [place], [place] [phone] (Work) Social History Tobacco Use Types Packs/Day [...] or relatives? How often do you attend orthodox or More than 4 times per year 09/25/2021 yarsani services? Do you belong to any clubs or Yes 09/25/2021 organizations such as orthodox groups, unions, fraternal or athletic groups, [...] (HCC) documented in this encounter Care Teams Operator Assistant I Cementing Relationship Specialty Start Date End Date Elsewhere, Pcp PCP - General Internal Medicine 05/29/19 documented as of this encounter
--- OUTSIDE RECORDS SUMMARY | 2022-01-16 15:56 | XMS_ITS | Encounter Summary ---
:1935 Author Organization [facility] [place] Address [address] [place] [address] Care Team Providers Name Role Phone Elsewhere, Pcp Primary Care Provider Unavailable Reason for Referral Outpatient (Routine) - Closed Specialty Diagnoses / Procedures Referred By Contact Refer red To Contact Video Medicine Diagnoses Cardiomyopathy Dilated (HCC) Paul Hickey [place] M.D. 200 [place] [address] Referral ID Status Reason Start Date Expiration Date Visits Requ ested Visits Authorized [id number] Closed 07/24/2019 07/23/2020 1 1 Reason for Visit Outpatient (Routine) - Closed Specialty Diagnoses / Procedures Referred By Contact Refer red To Contact Cardiovascular Disease Paul Hickey M.D. 200 [place] [address] Referral ID Status Reason Start Date Expiration Date Visits Requ ested Visits Authorized [id number] Closed 07/17/2019 07/16/2020 1 1 Encounter Details Date Type Department Care Team Description 07/24/2019 Virtual Visit Department of [place] Cardiomyopath y Dilated (HCC) (Primary Dx); Cardiovascular Medicine Paul Zamudio M.D. Apnea Sleep Obstructive in [facility] [address] [facility] [address] [place] [phone] [phone] Social History Tobacco Use Types Packs/Day Years [...] or relatives? How often do you attend spiritism or More than 4 times per year 09/25/2021 nondenominational services? Do you belong to any clubs or Yes 09/25/2021 organizations such as spiritism groups, unions, fraternal or athletic groups, or [...] encounter Progress Notes Paul Hickey M.D. - 07/24/2019 11:00 AM CDT [id number] PHONE VISIT A phone call care discussion in the setting of the national COVID19 pandemic was completed consistent with [facility] [place] institutional direction. This visit was peformed by telephone call today. I spoke with him and his . HISTORY OF PRESENT ILLNESS Mr. Nii Franz is a 84 y.o. male who well known to me from previous conversations. He has a nonischemic dilated cardiomyopathy, left bundle branch block, and we continue to adjust medications. Since I spoke with him on July 17, 2019 he has been clinically stable. He had 1 episode of increased sodium intake and his blood pressure was 124/54. He took 2 doses of torsemide that day and his weight cameback down to it stable baseline of 165 lb. He has typical blood pressures of about 100 systolic. He has been taking a higher dose of Toprol XL, 25 mg the morning and 50 mg in the evening, and he has tolerated this well. He has no edema and mild orthostatic lightheadedness. He does not have PND, awareness of sustained palpitations, or syncope. He is fairly sedentary, only doing some walking around thehouse. DIAGNOSTICS I have personally reviewed the patient's available current laboratory, imaging, and other diagnosticstudies. Outside laboratories were reviewed. ASSESSMENT / PLAN #1 Cardiomyopathy Dilated (HCC) Based on history his volume status appears to be satisfactory. His laboratory studies on July 21 included sodium 140, potassium 4.7, creatinine 1.3, and N terminal BNP 4021. His creatinine is slightly elevated compared to previous. We will make 2 changes in medications today. I have asked him to decrease his torsemide to 10 mg on Monday. We will go up on metoprolol to 50 mg twice a day. I will arrange for a follow-up in 2 weeks. He would like to do a Zoom video conference appointment. #2 Apnea Sleep Obstructive Follow-up and testin weeks video conference on Zoom. Decision Priority (Choose one): Tier2 -Semi Urgent (soon after ban lifted) Next visit preference: Virtual I spent 25 minutes reviewing records, testing, discussion and follow up. documented in this encounter Plan of Treatment Scheduled Referrals Name Type Priority Associated Diagnoses Order S chedule Video anyplace Outpatient Referral Routine Cardiomyopathy Dila radha Expected: visit (HCC) 08/07/2019 (Approximate), Expires: 07/23/2022 documented as of this encounter Visit Diagnoses Diagnosis Cardiomyopathy Dilated (HCC) - Primary Apnea Sleep Obstructive documented in this encounter Care Teams School Coordinator Relationship Specialty Start Date End Date Elsewhere, Pcp PCP - General Internal Medicine 05/29/19 documented as of this encounter
--- OUTSIDE RECORDS SUMMARY | 2022-01-16 15:56 | XMS_ITS | Encounter Summary ---
:1935 Author Organization [facility] Address [address] [place] [address] Care Team Providers Name Role Phone Elsewhere, Pcp Primary Care Provider Unavailable Reason for Visit Outpatient (Routine) - Closed Specialty Diagnoses / Referred By Referred To Cont act Procedures Contact Gastroenterology and Lisa Snow [facility] Hepatology MARGOT, C.N.P., M.S. [address] [place] [phone] Referral ID Status Reason Start Date Expiration Date Visits Requ ested Visits Authorized [id number] Closed 05/07/2019 05/06/2020 1 1 Encounter Details Date Type Department Care Team Description 01/20/2020 Telemedicine Division of Lisa Snow Vicente's Eso phagus Gastroenterology madelyn Zamudio APRN, (Primary Dx) [place], [place] C.N.P., M.S. [address] [place] [address] [place] [phone] [place], [place] [phone] Social History Tobacco Use Types Packs/Day Years [...] More than 4 times per year 09/25/2021 oriental orthodox services? Do you belong to any clubs or Yes 09/25/2021 organizations such as jewish groups, unions, fraEchoSign or athletic groups, or school groups? How [...] to sleep or slept in a senior care (including now)? Education Answer Date Recorded What is the highest level of school Bachelor's degree (e.g., BA, AB, 05/16/2019 you have completed or the highest BS) degree you have received? Sex Assigned at Date Recorded Male 08/14/2017 2:01 PM CDT documented as of this encounter Progress Notes Lisa Snow, MARGOT, C.N.P., M.S. - 01/20/2020 11:30 AM CDT This is a video visit from [place], [place], to the house of Mr. Franz. 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 Franz and his briefly via video visit this morning. Mrs. Franz indicating, due to Mr. Franz's ongoing cardiac issues, they would like to postpone his upper endoscopy. She feels that he is not strong enough to undergo an upper endoscopy and that she is afraid that something will happen during the sedation process. Mr. Franz is actively working with Cardiology here. I asked that they be in contact with me once there is a plan from cardiology standpoint and once he is more stable, then I will order the upper endoscopy. They are aware there is risk of progression/recurrent cancer here, but his last upper endoscopy with pathology in March of this year showed Vicente's withno dysplasia. We will, therefore, hold off on ordering upper endoscopy until I hear back from Mr. Franz and his . Discussed with Dr. Carranza documented in this encounter Plan of Treatment Not on filedocumented as of this encounter Visit Diagnoses Diagnosis Vicente's Esophagus - Primary documented in this encounter Care Teams Machine Maintenance Supervisor Relationship Specialty Start Date End Date Elsewhere, Pcp PCP - General Internal Medicine 05/29/19 documented as of this encounter
--- OUTSIDE RECORDS SUMMARY | 2022-01-16 15:56 | XMS_ITS | Encounter Summary ---
:1935 Author Organization [facility] Address [address] [place] [address] Care Team Providers Name Role Phone Elsewhere, Pcp Primary Care Provider Unavailable Encounter Details Date Type Department Care Team Description 06/17/2019 Clinical Communication Department of [facility] Cardiovascular Medicine Paul Zamudio M.D. in [facility] [address] [facility] [address] [place] [phone] Social History Tobacco Use Types Packs/Day Years [...] or relatives? How often do you attend anabaptist or More than 4 times per year 09/25/2021 oriental orthodox services? Do you belong to any clubs or Yes 09/25/2021 organizations such as anabaptist groups, unions, fraternal or athletic groups, or [...] this encounter Miscellaneous Notes Telephone Encounter - Magalie Christie R.N. - 06/18/2019 9:31 AM CDT SUBJECTIVE ?? CHIEF COMPLAINT / REASON FOR CALL Appointment Information Discussed RN contacted patient to convert upcoming appointment to non face to face visit. Patient agreed encounter changed due to COVID19. ?? Telephone Encounter - Paul Hickey M.D. - 06/17/2019 11:47 AM CDT On review of the record I believe it is appropriate and indicated that this mrns-pe-mddc visit be converted to a telephone interview. At that time we will decide when a diox-oj-bivj appointment will bearranged. documented in this encounter Plan of Treatment Not on filedocumented as of this encounter Visit Diagnoses Not on filedocumented in this encounter Care Teams Embedded Engineer Relationship Specialty Start Date End Date Elsewhere, Pcp PCP - General Internal Medicine 05/29/19 documented as of this encounter
--- OUTSIDE RECORDS SUMMARY | 2022-01-16 15:56 | XMS_ITS | Encounter Summary ---
:1935 Author Organization [facility] Address [address] [place] [address] Care Team Providers Name Role Phone Elsewhere, Pcp Primary Care Provider Unavailable Encounter Details Date Type Department Care Team Description 12/19/2019 Orders Only Department of Cardiovascular [facility] Medicine in [facility] [address] [place] [phone] Social History Tobacco Use Types Packs/Day [...] or relatives? How often do you attend anabaptism or More than 4 times per year 09/25/2021 sabianism services? Do you belong to any clubs or Yes 09/25/2021 organizations such as anabaptism groups, unions, fraternal or athletic groups, or [...] on filedocumented in this encounter Care Teams Furnace Installer Helper Relationship Specialty Start Date End Date Elsewhere, Pcp PCP - General Internal Medicine 05/29/19 documented as of this encounter
--- OUTSIDE RECORDS SUMMARY | 2022-01-16 15:56 | XMS_ITS | Encounter Summary ---
:1935 Author Organization [facility] Address [address] [place] [address] Care Team Providers Name Role Phone Elsewhere, Pcp Primary Care Provider Unavailable Reason for Visit Reason Comments Needs lab orders faxed to [facility] Encounter Details Date Type Department Care Team Description 07/22/2019 Clinical Orlando Guzman, Needs lab orders Communication Center for Paul Zamudio, faxed to [facility] [address] [place] [address] in [facility] [phone] [place] [address] [place], [place] (Work) [phone] Social History Tobacco Use Types Packs/Day Years [...] More than 4 times per year 09/25/2021 buddhism services? Do you belong to any clubs [...] Miscellaneous Notes Telephone Encounter - Skye Cruz, R.N. - 07/22/2019 1:02 PM CDT RN sent order for labs. Ordered CMP and NT Pro BNP Telephone Encounter - Araceli Armenta - 07/22/2019 12:45 PM CDT HF RN: Kaitlin from [facility] in [place], [place], calls as Mr. Franz called to schedule his lab work as ordered by Dr. Hickey. They do not have lab orders there for this patient. Please fax lab orders to: [phone]. Thank you! Araceli documented in this encounter Plan of Treatment Not on filedocumented as of this encounter Visit Diagnoses Diagnosis Acute Systolic (Congestive) Heart Failur e (HCC) - Primary documented in this encounter Care Teams Ged Tutor Relationship Specialty Start Date End Date Elsewhere, Pcp PCP - General Internal Medicine 05/29/19 documented as of this encounter
--- OUTSIDE RECORDS SUMMARY | 2022-01-16 15:56 | XMS_ITS | Encounter Summary ---
:1935 Author Organization [facility] Address [address] [place] [address] Care Team Providers Name Role Phone Elsewhere, Pcp Primary Care Provider Unavailable Reason for Visit Reason Comments Med Refill Encounter Details Date Type Department Care Team Description 11/04/2019 Refill Department of Cardiovascular Paul Hickey, Med Refill Medicine in [facility] [address] [place] [address] [address] [place] [address] [place] [phone] [phone] Social History Tobacco Use Types Packs/Day Years [...] or relatives? How often do you attend samaritan or More than 4 times per year 09/25/2021 yarsanism services? Do you belong to any clubs or Yes 09/25/2021 organizations such as samaritan groups, unions, fraternal or athletic groups, or [...] on filedocumented in this encounter Care Teams Data Reduction Technician Relationship Specialty Start Date End Date Elsewhere, Pcp PCP - General Internal Medicine 05/29/19 documented as of this encounter
--- OUTSIDE RECORDS SUMMARY | 2022-01-16 15:56 | XMS_ITS | Encounter Summary ---
:1935 Author Organization [facility] Address [address] [place] [address] Care Team Providers Name Role Phone Elsewhere, Pcp Primary Care Provider Unavailable Reason for Visit Reason Comments Med Refill Encounter Details Date Type Department Care Team Description 06/18/2019 Refill Department of Cardiovascular Amy Borrero V., Med Refill Medicine in [place], [place] Bryan, Ph.D. [address] [place] [address] [address] [place] [phone] [place], [place] [phone] (Wo rk) Social History Tobacco Use Types [...] or relatives? How often do you attend latter day or More than 4 times per year 09/25/2021 spiritism services? Do you belong to any clubs or Yes 09/25/2021 organizations such as latter day groups, unions, fraternal or athletic groups, or [...] this encounter Miscellaneous Notes Telephone Encounter - Sybil Eldridge R.N. - 06/19/2019 10:37 AM CDT Refill per refill tab. Telephone Encounter - Viri Martinez - 06/18/2019 2:05 PM CDT Images from the original note were not included. Nurse review: Unable to pend medication to provider; Requested Medication is on A exclusion list. Mail order Pharmacy requesting 90 day supply. Name of Medication: Eliquis Strength: 5mg tablet Frequency: BID Last Seen: 06/03/2019-Dr. Borrero Pharmacy: [facility] - [place], [place] - [facility] documented in this encounter Plan of Treatment Not on filedocumented as of this encounter Visit Diagnoses Not on filedocumented in this encounter Care Teams Data Examination Clerk Relationship Specialty Start Date End Date Elsewhere, Pcp PCP - General Internal Medicine 05/29/19 documented as of this encounter
--- OUTSIDE RECORDS SUMMARY | 2022-01-16 15:56 | XMS_ITS | Encounter Summary ---
:1935 Author Organization [facility] Address [address] [place] [address] Care Team Providers Name Role Phone Elsewhere, Pcp Primary Care Provider Unavailable Reason for Referral Outpatient (Routine) - Closed Specialty Diagnoses / Referred By Contact Referred To Contact Procedures Cardiovascular Diseases / Diagnoses Chronic Systolic (Congestive) Heart Failure (HCC) Louie Borrero [facility] Cardiovascular Disease Bryan Weiner, Ph.D. 200 [place] [address] Referral ID Status Reason Start Date Expiration Date Visits Requ ested Visits Authorized [id number] Closed 06/03/2019 06/02/2020 1 1 Encounter Details Date Type Department Care Team Description 06/03/2019 Office Visit Department of [place], Chronic Systol ic Cardiovascular Medicine Louie Weiner M.D., ( Congestive) Heart in [facility] Ph.D. Failure (HCC) [address] [place] [address] [place] [address] (Primary Dx) [place] [address] [place], [place] [phone] Social History Tobacco Use Types Packs/Day Years [...] 09/25/2021 organizations such as anabaptism groups, unions, fraVega-Chi or athletic groups, or school groups? How [...] CDT documented as of this encounter Consult Louie Gifford M.D., Ph.D. - 06/03/2019 4:30 PM CDT REASON FOR VISIT I am seeing Mr. Franz because of a nonischemic cardiomyopathy. I originally saw Mr. Franz in April of 2019 because a stress test revealed an anterior septal infarction ejection fraction of 22%. As he does not exercise, he was completely asymptomatic and denied orthopnea, dyspnea on exertion other symptoms of heart failure. Our plan at that point was to repeat an echocardiogram and then proceedto an ischemic evaluation if he truly had a reduced ejection fraction. Ten days later, he presented to our emergency room with atrial fibrillation flutter with a rapid ventricular rate. He was rate controlled anticoagulated and subsequent evaluation revealed that he had a nonischemic cardiomyopathy with an ejection fraction of 15-20%. On further detailed questioning, Mr. Franz admits that he has probably knee are class 3 symptoms of heart failure. He gets dyspnea with only walking to the bathroom but denies any dyspnea with activities daily living. He currently is treated with lisinopril 2.5 mg a day metoprolol 50 mg a day and Demadex 10 mg a day and his weight since hospital discharge has decreased from 170-167. He still deniesorthopnea and does not have lower extremity edema and his lungs are clear on exam. PHYSICAL EXAMINATION Blood pressure was 94/52 pulse of 79 VESSELS: No jugular venous distension. No carotid bruits. HEART: Normal rate, normal S1, S2 without murmurs, gallops or bruits LUNGS: Clear to auscultation & tympanic to percussion bilaterally with good inspiratory effort. ABDOMEN: Soft, nontender, and nondistended with active bowel sounds. No hepatomegaly. EXTREMITIES: No pretibial edema. ASSESSMENT / PLAN Mr. Franz has a nonischemic cardiomyopathy with an ejection fraction of 15- 20%. He just initiated therapy for heart failure. He needs to up try take his medications but at a pressure of 94/52 I am hesitant to increase his lisinopril. Both he and his are requesting heart failure teaching and I think that is reasonable to be seen in the Heart failure Clinic for teaching as well as up titration of his medications. I would think that he will eventually require an AICD as I doubt that he will increase his ejection fraction enough to not qualify for this therapy. Louie Borrero M.D., Ph.D. 06/03/2019 documented in this encounter Plan of Treatment Scheduled Referrals Name Type Priority Associated Order Schedule Diagnoses Cardiovascular Disease Outpatient Referral Routine Chronic Sys tolic Expected: - Heart failure consult (Congestive) Hear t 06/03/2019 (clinic) Failure (HCC) (Approximate), Expires: 06/02/2022 documented as of this encounter Visit Diagnoses Diagnosis Chronic Systolic (Congestive) Heart Fail ure (HCC) - Primary documented in this encounter Care Teams Plant Wrapper Relationship Specialty Start Date End Date Elsewhere, Pcp PCP - General Internal Medicine 05/29/19 documented as of this encounter
--- OUTSIDE RECORDS SUMMARY | 2022-01-16 15:56 | XMS_ITS | Encounter Summary ---
:1935 Author Organization [facility] Address [address] [place] [address] Care Team Providers Name Role Phone Elsewhere, Pcp Primary Care Provider Unavailable Reason for Referral Outpatient (Routine) - Closed Specialty Diagnoses / Procedures Referred By Contact Refer red To Contact Cardiovascular Disease Malinda Renteria M.D. [address] [place] [address] Referral ID Status Reason Start Date Expiration Date Visits Requ ested Visits Authorized [id number] Closed 07/17/2019 07/16/2020 1 1 Encounter Details Date Type Department Care Team Description 07/17/2019 Virtual Visit Department of Jimmy Renteria Systoli c (Congestive) Heart Failure (HCC) (Primary Dx); Cardiovascular Medicine Malinda Zamudio M.D. Cardiomyopathy Dilated (HCC); in [facility] tanner rotary drum continuous process [address] [facility] Flutter Atrial (HCC) [address] [place] [phone] Social History Tobacco Use Types Packs/Day Years [...] or relatives? How often do you attend holiness or More than 4 times per year 09/25/2021 adventism services? Do you belong to any clubs or Yes 09/25/2021 organizations such as holiness groups, unions, fraternal or athletic groups, or [...] documented as of this encounter Progress Notes Malinda Renteria M.D. - 07/17/2019 11:30 AM CDT [id number] PHONE VISIT A phone call care discussion in the setting of the national COVID19 pandemic was completed consistent with [facility] institutional direction. This visit was peformed by telephone. I spoke with him and his . HISTORY OF PRESENT ILLNESS Mr. Nii Franz is a 84 y.o. male who is well known to me from previous interactions. He has a nonischemic dilated cardiomyopathy and left bundle branch block, as well as a history of paroxysmal atrial flutter and moderately frequent PVCs. He is being initiated and titrated on medical therapy. Since I last spoke to him on July 04, 2019 he reports that he is sleeping a bit better and feeling a bit better. He continues to take 50 mg of Toprol-XL in the morning. His weight is stable at about 165 lb and he does not have visible edema. His pulse has been in the mid 60s, murmur ranging from 59 to about 71. Systolic blood pressures taken in the morning have ranged from 98 to 118. He has mild orthostatic lightheadedness and he still has dyspnea if he had attempts to walk rapidly. He has not had syncope or awareness of sustained palpitations. He is not having PND. He tries to walk 10 minutes on the daysthat he can go outdoors and he does this at a slow normal pace and feels comfortable without excessive fatigue or dyspnea. DIAGNOSTICS I have personally reviewed the patient's available current laboratory, imaging, and other diagnosticstudies. ASSESSMENT / PLAN #1 Acute Systolic (Congestive) Heart Failure (HCC) #2 Cardiomyopathy Dilated (HCC) His volume status appears to be stable and his symptoms are a little better. I have asked him to increase his dose of Toprol by taking a half pill (25 mg) in the morning and 50 mg in the evening, for atotal of 75 mg daily. I will try to set up her next visit as a [id number]-cp-mjge consultation. #3 Flutter Atrial (HCC) Follow-up and testing: I would like to set up a uyeq-uu-dely visit in the clinic within the next 2-3weeks. At that time we will check electrolytes. Decision Priority (Choose one): Tier1 -Urgent (as soon as possible) Next visit preference: Face to face I spent 30 minutes reviewing records, testing, discussion and follow up. documented in this encounter Miscellaneous Notes Addendum Note - Malinda Renteria M.D. - 07/17/2019 11:30 AM CDT Addended by: MALINDA RENTERIA on: 07/17/2019 12:09 PM Modules accepted: Orders Addendum Note - Malinda Renteria M.D. - 07/17/2019 11:30 AM CDT Addended by: MALINDA RENTERIA on: 07/17/2019 12:12 PM Modules accepted: Orders documented in this encounter Plan of Treatment Scheduled Referrals Name Type Priority Associated Order Schedule Diagnoses Cardiovascular Disease Outpatient Referral Routine Expected: office visit (clinic) 2019 (Approximate), Expires: 07/16/2022 documented as of this encounter Visit Diagnoses Diagnosis Acute Systolic (Congestive) Heart Failur e (HCC) - Primary Cardiomyopathy Dilated (HCC) Flutter Atrial (HCC) documented in this encounter Care Teams Flying Shear Operator Relationship Specialty Start Date End Date Elsewhere, Pcp PCP - General Internal Medicine 05/29/19 documented as of this encounter
--- OUTSIDE RECORDS SUMMARY | 2022-01-16 15:56 | XMS_ITS | Encounter Summary ---
:1935 Author Organization [facility] Address [address] [place] [address] Care Team Providers Name Role Phone Elsewhere, Pcp Primary Care Provider Unavailable Reason for Visit Reason Comments Previsit Preparation Encounter Details Date Type Department Care Team Description 07/16/2019 Clinical Department of Sushil Hikceyisit Communication Cardiovascular Paul Zamudio, Preparation Medicine in [place], [place] [address] [place] [address] [address] [place] [phone] Social History Tobacco Use Types Packs/Day Years [...] More than 4 times per year 09/25/2021 mandaen services? Do you belong to any clubs [...] Telephone Encounter - Magalie Christie R.N. - 07/16/2019 11:36 AM CDT SUBJECTIVE Summary of Pre-visit Nurse Phone Call CHIEF COMPLAINT / REASON FOR CV VISIT on 07/17/2019 Follow up Questions patient would like provider to address: Patient passed phone to , Shira Franz, andgave verbal permission to speak to her regarding patient. and patient would like to discuss theadvice given by Dr. Hickey 2 weeks ago, which has been working well with the patient. Patient was discharged from hospital on May 28, 2019. Patient has been losing weight and has lost 6 pounds after being discharged from hospital to now. Concern and questions of is: Is patient losing too much weight at this point? How to balance lower caloric intake (e.g., sodium) and patient losing weight? Information discussed: Future Appointment Current cardiac symptoms: Fatigue/Altered activity tolerance and shortness of breath on exertion Med Rec: done Allergies: Not updated-No changes in allergies Education: Reason for previsit call Mr. Franz will be contacted for NF2F visit at the currently scheduled time. documented in this encounter Plan of Treatment Not on filedocumented as of this encounter Visit Diagnoses Not on filedocumented in this encounter Care Teams Clerical Office Worker Relationship Specialty Start Date End Date Elsewhere, Pcp PCP - General Internal Medicine 05/29/19 documented as of this encounter
--- OUTSIDE RECORDS SUMMARY | 2022-01-16 15:56 | XMS_ITS | Encounter Summary ---
:1935 Author Organization [facility] Address [address] [place] [address] Care Team Providers Name Role Phone Elsewhere, Pcp Primary Care Provider Unavailable Encounter Details Date Type Department Care Team Description 07/04/2019 Virtual Visit Department of Jimmy Hickey Systoli c (Congestive) Heart Failure (HCC); Cardiovascular Medicine Paul Zamudio M.D. Cardiomyopathy Dilated (HCC); in [facility] [place] [address] [facility] Flutter Atrial (HCC) [address] [place] [phone] Social History Tobacco Use Types Packs/Day Years [...] encounter Progress Notes Paul Hickey M.D. - 07/04/2019 11:30 AM CDT [id number]-FACE PHONE VISIT A phone call care discussion in the setting of the national COVID19 pandemic was completed consistent with [facility] institutional direction. This visit was peformed by telephone call today. I spoke with him and his . HISTORY OF PRESENT ILLNESS Mr. Nii Franz is a 84 y.o. male who is known to be from our telephone visit 1 week ago. For a full history please see my note from June 26, 2019. Has recently been found to have a nonischemic dilated cardiomyopathy with left bundle branch block and ejection fraction about 20%. He has been started on medical therapy. We spoke by telephone today to follow-up on his symptoms from 1 week ago and to see if we could begin to titrate his medications upward. He has been instructed to weigh himself daily,check his blood pressure, and maintain a 2 L fluid restriction. I reviewed the Holter monitor from home and he was in sinus rhythm with 2% PVCs, nonsustained PSVT runs, and rare nonsustained VT. Since a week ago he has decreased his torsemide to every other day and his weight has stabilized at about 163 lbs. He still has some orthostatic lightheadedness, but systolic blood pressures and started to come up to 100-109. No edema or orthopnea, syncope or sustained palpitations. His sleep is much i mproved and he is taking fewer naps. He still has exertional dyspnea on walking from room to room. He notes an occasional dry tickle cough. DIAGNOSTICS I have personally reviewed the patient's available current laboratory, imaging, and other diagnosticstudies. ASSESSMENT / PLAN Encounter Diagnoses Name Primary? Acute Systolic (Congestive) Heart Failure (HCC) ??? Cardiomyopathy Dilated (HCC) ??? Flutter Atrial (HCC) He is stable from a clinical point of view and his intravascular volume seems to be more satisfactory. I would like to check on him again in two weeks before trying to increase his Toprol dose or add digoxin. I will arrange for a phone call visit. Follow-up and testing: See above. Decision Priority (Choose one): Tier1 -Urgent (as soon as possible) Next visit preference: Virtual I spent 30 minutes reviewing records, testing, discussion and follow up. Lisa Hoffmann - 07/04/2019 11:30 AM CDT Called pt and set up NF2F appt 07/16 11:30 2 wk f/u. documented in this encounter Plan of Treatment Not on filedocumented as of this encounter Visit Diagnoses Diagnosis Acute Systolic (Congestive) Heart Failur e (HCC) Cardiomyopathy Dilated (HCC) Flutter Atrial (HCC) documented in this encounter Care Teams Dye Padder Operator Relationship Specialty Start Date End Date Elsewhere, Pcp PCP - General Internal Medicine 05/29/19 documented as of this encounter
--- OUTSIDE RECORDS SUMMARY | 2022-01-16 15:56 | XMS_ITS | Encounter Summary ---
:1935 Author Organization [facility] Address [address] [place] [address] Care Team Providers Name Role Phone Elsewhere, Pcp Primary Care Provider Unavailable Reason for Visit Reason Comments Appointment Christy Patient Encounter Details Date Type Department Care Team Description 06/14/2019 Clinical Communication Department of Digna Harrison Neurology in Christopher Rdz M.D. (Christy Patient) [place], [address] [place], [place] [address] [place] [phone] [place], [place] [phone] (Work) [phone] Social History Tobacco Use Types Packs/Day Years [...] or relatives? How often do you attend latter-day or More than 4 times per year 09/25/2021 hinduism services? Do you belong to any clubs or Yes 09/25/2021 organizations such as latter-day groups, unions, fraternal or athletic groups, or [...] this encounter Miscellaneous Notes Telephone Encounter - Shira Schneider R.N. - 06/18/2019 10:[address] Harrison, Please reschedule a face to face appointment in July or when you are starting to reschedule pt appointments. Thank you!!! Telephone Encounter - Shira Schneider R.N. - 06/18/2019 10:27 AM CDT SUBJECTIVE CHIEF COMPLAINT / REASON FOR CALL Appointment (Christy Patient) Information Discussed Per Dr. Harrison, I called Mrs. Franz with the following information: I compared to the MRI from [facility] back in 2013. This tumor has changed minimally if at all over 6 years. While it may be a factor in cognitive impairment, and perhaps even confusional state while in hospital, it is not the only factor. There is no need for any form of urgent intervention with regard tothe tumor, and with regard to the patient's cognition, this would be a longstanding concern which would make neurological evaluation completely elective, and can be safely deferred. They should not come for the planned appointments this week and should be rescheduled for typf-lr-usxo visit when able. This would not be amenable for a video visit or telephone visit. She very much appreciated the phone call and the information. I provided her the Neurology Appointment number. She will be in contact with them to rescheduled. I wished them both well. She thanked me for the call. PLAN Disposition/Recommendation: as above. Information/Education: patient/caller able to teach back Caller agreeable to plan of care: yes The following references were used: nursing clinical judgment and provider Dr Harrison. Telephone Encounter - Christopher Harrison M.D. - 06/17/2019 11:38 AM CDT I compared to the MRI from [facility] in 2013. This tumor has changed minimally if at all over 6 years. While it may be a factor in cognitive impairment, and perhaps even confusional state while in hospital, it is not the only factor. There is no need for any form of urgent intervention with regard to the tumor, and with regard to the patient's cognition, this would be a longstanding concern which would make neurological evaluation completely elective, and can be safely deferred. They should not comefor the planned appointments this week and should be rescheduled for oicv-oy-htcf visit when able. This would not be amenable for a video visit or telephone visit. Telephone Encounter - Shira Schneider R.N. - 06/17/2019 8:[address] Harrison, Please see Liliana's note below. Would you be able to review the CT scan--it is available in [place]. Please advise on what this 84 year old pt should do for appts. Pt is from [place], [place]. 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 They canceled their upcoming appointment with Dr. Harrison as he was just recently discharged from the hospital, patient still isn't feeling the best, and doesn't want to risk traveling here due to COVID, etc. While in the hospital (here), he did have a CT scan done where it was noted that there was a slight interval increase in size of heavily calcified right frontal parafalcine meningioma'; hence, the appointment w/Dr. Harrison. Mrs. Franz is wondering how to proceed. Should they reschedule. Would Dr. Harrison review and makerecommendations? documented in this encounter Plan of Treatment Not on filedocumented as of this encounter Visit Diagnoses Not on filedocumented in this encounter Care Teams Medical Lab Specialist Relationship Specialty Start Date End Date Elsewhere, Pcp PCP - General Internal Medicine 05/29/19 documented as of this encounter
--- OUTSIDE RECORDS SUMMARY | 2022-01-16 15:56 | XMS_ITS | Encounter Summary ---
:1935 Author Organization [facility] Address [address] [place] [address] Care Team Providers Name Role Phone Elsewhere, Pcp Primary Care Provider Unavailable Reason for Visit Outpatient (Routine) - Closed Specialty Diagnoses / Procedures Referred By Contact Refer red To Contact Video Medicine Diagnoses Cardiomyopathy Dilated (HCC) Paul Hickey [place] Mirta Adams [address] [place] [address] Referral ID Status Reason Start Date Expiration Date Visits Requ ested Visits Authorized [id number] Closed 08/12/2019 08/11/2020 1 1 Encounter Details Date Type Department Care Team Description 10/23/2019 Telemedicine Department of Ru[place]to Cardiomyopathy Dilated Cardiovascular Medicine Paul Zamudio M.D. ([facility]) in [facility] 200 [facility] [address] [place] [phone] [phone] Social History Tobacco Use Types Packs/Day Years [...] or relatives? How often do you attend moravian or More than 4 times per year 09/25/2021 cheondoism services? Do you belong to any clubs or Yes 09/25/2021 organizations such as moravian groups, unions, fraternal or athletic groups, or [...] documented as of this encounter Consult Notes Bia Hooper M.B.B.S. - 10/23/2019 8:00 AM CDT Nii Franz : 1935 Visit Date: 10/23/19 REFERRAL SOURCE Paul Hickey M.D. [address] [place] [phone] Encounter type: Telemedicine visit. CHIEF COMPLAINT / REASON FOR VISIT Follow up on HFrEF HISTORY OF PRESENT ILLNESS Mr. Nii Franz is a 84 y.o. male who is being followed for dilated cardiomyopathy. He had a telemedicine visit with him on 08/12/19, and his Metoprolol dose was increased. He is doing fine overall, he has good functional capacity, able to his all his ADLs with no symptoms. He is able to take one flight of stairs as well comfortably. He denied any shortness of breath or fatigue. He reported some occasional dizziness but not falls. This is not interfering with his daily ac tivities. He is compliant to his medications and to checking his vitals. His blood pressure is in the normal range, and the corey reading is at 126 mmHg systolic. His heart rate is running at an average of 57 bpm. His not being physically active lately, and he think that he probably should walk a little more. Review of systems is negative. Past Medical History: Diagnosis Date ??? Anemia [...] Osteopenia 2013 ??? Other Specified Health Status 2014 Parkinsonism HC 2014 Meningioma HC ??? Parkinson Disease (HCC) ??? [...] SINUS SURGERY 1996 ??? TONSILLECTOMY ??? TONSILLECTOMY Family History Problem Relation Age of Onset ??? Breast cancer Mother ??? Diabetes Mother ??? Depression Mother ??? Breast cancer Daughter ??? Colon polyps Daughter ??? Breast cancer Daughter ??? Migraines Daughter ??? Colon cancer Brother ??? Dementia Brother FTD ??? Ovarian cancer Paternal Grandmother ??? Other cancer Sister Colorectal ??? Coronary artery disease Father ??? Coronary artery disease Paternal Grandfather ??? Stroke Maternal Grandfather ??? Diabetes Mother's Sister ??? Diabetes Maternal Grandmother Social History Tobacco Use Smoking Status Never Smoker Smokeless Tobacco Never Used The following portions of the patient's history were reviewed and updated as appropriate: allergies,current medications, family, medical, social and surgical history, problem list, labs, diagnostics tests. I also reviewed pertinent clinical notes in the electronic health record. REVIEW OF SYSTEMS A comprehensive review of systems was completed; pertinent abnormalities are included in the Historyof Present Illness. MEDICATIONS Current Medications: ??? acetaminophen (TYLENOL) 500 [...] crush or chew. ??? miscellaneous medical supply mis, CPAP machine for home use at pressure: [...] tablet by mouth 2 (two) timesa day. DIAGNOSTIC REVIEW All labs and diagnostic studies were reviewed. ASSESSMENT / PLAN #1 Cardiomyopathy Dilated (HCC) Mr. Franz is a pleasant 84 yo gentleman with dilated cardiomyopathy who has been followed with telemedicine visit lately. He is on small dose of lisinopril, and we increased his Metoprolol dose in 08/13. He looks comfortable with this regimen, with no major side effects. He is also maintaining euvolemic state with his diuretic regimen. We would like to repeat TTE to check on any improvement in his EF and LV size on this current regimen, as well would like to check electrolytes and NT-ProBNP. He will do thoses tests locally. We encouraged him to be a little more physically active, with walking every day or other day. We are not making any changes at this point. We will be happy to meet with him audiovisually within one month. Cj Walker. Advanced Cardiology/Cardiac Amyloidosis Fellow, PGY-8 Department of Cardiovascular Medicine [facility] Pager: [phone] E-mail: [email or web address] Associated attestation - Paul Hickey M.D. - 10/24/2019 10:14 AM CDT I spoke with him and his over the phone and reviewed the issues with Dr. Hooper. I agree with his assessment and plan. He is tolerating his medications well at this point. Hopefully will be able to see him yyeh-da-ymso in the coming months to make further adjustments. We will also want to reassess his ventricular function. documented in this encounter Plan of Treatment Not on filedocumented as of this encounter Visit Diagnoses Diagnosis Cardiomyopathy Dilated (HCC) documented in this encounter Care Teams Parts Runner Relationship Specialty Start Date End Date Elsewhere, Pcp PCP - General Internal Medicine 05/29/19 documented as of this encounter
--- OUTSIDE RECORDS SUMMARY | 2022-01-16 15:56 | XMS_ITS | Encounter Summary ---
:1935 Author Organization [facility] Address [address] [place] [address] Care Team Providers Name Role Phone Elsewhere, Pcp Primary Care Provider Unavailable Encounter Details Date Type Department Care Team Description 12/11/2019 Orders Only Department of [place], Cardiomyopathy Dilated Cardiovascular Medicine [facility], ([facility] ) (Primary Dx) in [facility] M.B.B.S. [address] [place] [address] Social History Tobacco Use Types Packs/Day [...] or relatives? How often do you attend restorationist or More than 4 times per year 09/25/2021 sikhism services? Do you belong to any clubs or Yes 09/25/2021 organizations such as restorationist groups, unions, fraternal or athletic groups, or [...] Primary documented in this encounter Care Teams Belt Conveyor Drier Relationship Specialty Start Date End Date Elsewhere, Pcp PCP - General Internal Medicine 05/29/19 documented as of this encounter
--- OUTSIDE RECORDS SUMMARY | 2022-01-16 15:56 | XMS_ITS | Encounter Summary ---
:1935 Author Organization [facility] Address [address] [place] [address] Care Team Providers Name Role Phone Elsewhere, Pcp Primary Care Provider Unavailable Reason for Visit Reason Comments Appointment Encounter Details Date Type Department Care Team Description 09/30/2019 Clinical Communication Department of Digna Hickey Cardiovascular Medicine Paul Zamudio M.D. in [facility] [address] [facility] [address] [place] [phone] Social History Tobacco Use Types Packs/Day Years [...] More than 4 times per year 09/25/2021 pentecostalism services? Do you belong to any clubs [...] this encounter Miscellaneous Notes Telephone Encounter - Paul Hickey M.D. - 10/09/2019 1:27 PM CDT The amyloid slot would be OK. Telephone Encounter - Xuan Jackson - 09/30/2019 4:[address] Hickey, The patient is calling to schedule the follow up video consult. You dont have much for availability so I wanted to check when you'd be ok to put the patient on or if you'd like me to take the amyloid slot on october 22? They were hoping for earlier but I wanted to check. Thank you! documented in this encounter Plan of Treatment Not on filedocumented as of this encounter Visit Diagnoses Not on filedocumented in this encounter Care Teams Scale Shooter Relationship Specialty Start Date End Date Elsewhere, Pcp PCP - General Internal Medicine 05/29/19 documented as of this encounter
--- OUTSIDE RECORDS SUMMARY | 2022-01-16 15:57 | XMS_ITS | Encounter Summary ---
:1935 Author Organization [facility] Address [address] [place] [address] Care Team Providers Name Role Phone Unavailable Primary Care Provider Unavailable Reason for Referral Outpatient (Routine) - Closed Specialty Diagnoses / Referred By Referred To Cont act Procedures [facility] Barbara FROSTNZak., M.S. [address] [place] [address] Referral ID Status Reason Start Date Expiration Date Visits Requ ested Visits Authorized [id number] Closed 05/07/2019 05/06/2020 1 1 MARKETER Reason for Visit Appointment Request (Routine) - Closed Specialty Diagnoses / Referred By Contact Referred To Procedures Contact Gastroenterology and Hepatology Referral ID Status Reason Start Date Expiration Date Visits Requ ested Visits Authorized [id number] Closed 04/24/2019 04/23/2020 1 1 Encounter Details Date Type Department Care Team Description 05/07/2019 Office Visit Division of [place], Vicente's Esoph ky (Primary Dx); Gastroenterology in Lisa Zamudio, Gastroes ophageal Reflux Disease Without Esophagitis [place], [place] Monica FROST.N.PCarey, [address] [place] [phone] [facility] [phone] [place] [phone] Social History Tobacco Use Types Packs/Day Years [...] More than 4 times per year 09/25/2021 amish services? Do you belong to any clubs [...] or slept in a [facility] (including now)? Sex Assigned at Date Recorded Male 08/14/2017 2:01 PM CDT documented as of this encounter Progress Notes Lisa Snow, MARGOT, C.N.P., M.S. - 05/07/2019 9:10 AM CST Date of visit: 05/07/2019 Supervising physician: Dr. Carranza ?? Reason for visit: phone visit HPI: I spoke with Mr. Nii Franz on the phone today. His endoscopic history is as follows: ?? 03/2013- EGD for anemia, ulcer at 35 cm, biopsy shows adenocarcinoma in a background of Vicente's Referral to [facility] 04/2013- EGD/EUS, BE 30-40 cm, nodularity, EMR, pathology moderately differentiated adenocarcinoma, negative deep margin, no LV I 06/2013- EGD, BE 30-37 cm, nodularity, EMR, pathology moderately differentiated adenocarcinoma, negative deep margin, no LV I 09/2013- EGD, BE 30-37 cm, nodularity, EMR, pathology BE HGD 11/2013- EGD, long segment BE, RFA, pathology BE HGD 03/2014- EGD/EUS, BE 35-40 cm, nodularity, EMR, BE HGD 05/2014- EGD, BE 30-37 cm, nodularity, cryotherapy, pathology BE HGD 06/2014- EGD, BE 31-38 cm, nodularity, cryotherapy, pathology extensive HGD 09/2014- EGD, BE C4-M5, nodularity, EMR, pathology BE HGD 10/2014- EGD, BE C4-M5, nodularity, EMR, pathology BE LGD 02/2015- EGD, BE C4-M5, nodularity, cryotherapy, pathology BE no dysplasia 04/2015- EGD, BE C5-M7, EMR, pathology BE HGD 08/2015- EGD, BE C4-M6, nodularity, EMR, pathology BE LGD 12/2015- EGD, BE C2-M4, EMR, pathology BE HGD 05/2016- EGD, BE 34-37 cm, EMR, pathology BE HGD 11/2016- EGD, BE C1-M3, balloon cryo, pathology BE indefinite for dysplasia 03/2017- EGD, BE C1-M2, balloon cryo, pathology BE indefinite for dysplasia 07/2017- EGD, BE C0-M2, balloon cryo, pathology BE indefinite 11/2017- EGD, BE C0-M1, EMR, pathology well differentiated adenocarcinoma, no LVI, negative margins 02/2018- EGD, Vicente's C 0-M1, spray cryotherapy, biopsy shows Vicente's no dysplasia 09/2018- EGD, Vicente's C 0-M1 treated with APC. Pathology showed specialized Vicente's with focal atypia indefinite for dysplasia. 03/2019- EGD, question residual Vicente's C 0-M1 treated with APC. Biopsy showed specialized Vicente's mucosa no dysplasia. ?? He takes pantoprazole 40 mg twice daily, Pepcid 40 mg at bedtime and Carafate 3 times daily after meals. ? Medical/Surgical history: Hypothyroidism Obstructive sleep apnea Hyperlipidemia Appendectomy Cataract surgery Tonsillectomy Anemia Vicente's esophagus with T1b adenocarcinoma Meningioma Parkinson's disease Colon polyps ?? 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 Never smoker. No alcohol. ?? 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 Carranza on April 24. There was question of residual Vicente's esophagus C 0-M1. Treated with APC. Afterdiscussion with Dr. Carranza we recommend he return in 6 months for repeat upper endoscopy. #2 GERD He should continue Protonix 40 mg twice daily, Carafate after meals and Pepcid 40 mg at bedtime. MARKETER documented in this encounter Plan of Treatment Scheduled Referrals Name Type Priority Associated Order Schedule Diagnoses Gastroenterology and Outpatient Routine Expecte d: Hepatology office visit Referral 10/25 (clinic) (Approximate), Expires: 05/07/2022 documented as of this encounter Visit Diagnoses Diagnosis Vicente's Esophagus - Primary Gastroesophageal Reflux Disease Without Esophagitis documented in this encounter
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
--- OUTSIDE RECORDS SUMMARY | 2022-01-16 15:57 | XMS_ITS | Encounter Summary ---
:1935 Author Organization [facility] Address [address] [place] [address] Care Team Providers Name Role Phone Unavailable Primary Care Provider Unavailable Encounter Details Date Type Department Care Team Description 05/06/2019 Hospital Encounter Department of Dimitris Tyler Malig nant Neoplasm Laboratory Medicine M.DCarey Of Bladder (HCC) and Pathology, [address] [place] [address] in [place], [place] [phone] [place] [address] [place], [place] (Work) [phone] Social History Tobacco Use Types Packs/Day Years [...] More than 4 times per year 09/25/2021 rastafari services? Do you belong to any clubs [...] or slept in a [facility] (including now)? Sex Assigned at Date Recorded Male 08/14/2017 2:01 PM CDT documented as of this encounter Medications at Time of Discharge Medication Sig Dispensed Refills Start Date End Date fluticasone (FLONASE) 50 Administer 1 spray 0 mcg/actuation nasal into each nostril spray daily as needed for rhinitis. loratadine (CLARITIN) 10 Take 1 tablet by 0 09/30 mg tablet mouth daily as needed for [...] morning and evening meals peg 400-propylene glycol Administer 1 drop 0 /0 09/2013 (SYSTANE) 0.4-0.3 % into both eyes 4 ophthalmic solution (four) times a day as needed. simvastatin (ZOCOR) 20 Take 1 tablet by 0 014 mg tablet mouth daily. tamsulosin (FLOMAX) 0.4 Take 0.4 mg by mouth 0 mg 24 hr capsule daily. venlafaxine XR Take 150 mg by mouth 0 10/31/2017 (EFFEXOR-XR) 150 mg 24 daily with breakfast. hr capsule vit Take 1 tablet by 0 03/10/2015 C/E/Zn/coppr/lutein/zeax mouth 2 (two) times a an (PRESERVISION AREDS 2 day. ORAL) acetaminophen (TYLENOL) Take 1 tablet by 0 201307/09/2019 325 mg tablet mouth as needed. 1 or 2 325mg prn/ or 1 or 2 500mg prn for pain. Carafate 100 mg/mL TAKE 2 TEASPOONFUL 900 mL 12 0 09/29/2020 suspension (10 ML) THREE TIMES A DAY AFTER MEALS fluticasone (VERAMYST) Administer 1 spray 0 09/2905/27/2019 27.5 mcg/actuation nasal into affected spray nostril(s) daily as needed for rhinitis. levothyroxine Take 1 tablet by 0 09/30/201305/28 (SYNTHROID, LEVOTHROID) mouth every morning. 100 mcg tablet 137 mcg documented as of this encounter Plan of Treatment Not on filedocumented as of this encounter Procedures Procedure Name Priority Date/Time Associated Diagnosis Comme nts CYTOLOGY NON-HERITAGE CONSULTANT Routine 05/23/2019 9:10 AM Malignant Neoplasm Results for this (SCHEDULED) SALES SUPPORT COORDINATOR Of Bladder (HCC) procedure a re in the results section. documented in this encounter Results Cytology Non-HERITAGE CONSULTANT (Scheduled) (05/23/2019 9:10 AM SALES SUPPORT COORDINATOR) Component Value Ref Test Analysis Performed At [facility] gist Range Method Time Signature 05/27/2019 DTL 1:54 PM SALES SUPPORT COORDINATOR Participated in Baljit Kenny 05/27/2019 DTL the Interpretation Bryan-Patholog 1:54 PM SALES SUPPORT COORDINATOR y Fellow Report Warren Bowen M.D. [phone] 05/27/2019 D TL electronically I verify that I have examined all relevant slides/ma terials 1:54 PM SALES SUPPORT COORDINATOR signed by for the specimen(s) and rendered or confirmed the diagnosis. Gross Description Received 80 05/27/2019 DTL cc of yellow 1:54 PM SALES SUPPORT COORDINATOR fluid in 70% ethanol. Source A. Urine, 05/27/2019 DTL voided 1:54 PM SALES SUPPORT COORDINATOR Interpretation A. Urine, voided (ThinPrep): Negative for High-Grade 05/27/2019 DTL Urothelial Carcinoma. 1:54 PM SALES SUPPORT COORDINATOR Specimen Anatomical Collection Method Collection Time Receive d Time (Source) Location / / Volume Laterality Varies 05/23/2019 9:10 AM 0 SALES SUPPORT COORDINATOR 11:54 AM SALES SUPPORT COORDINATOR Narrative This result has an attachment that is no t available. Resulting Agency Comment Mailed In Specimen Dimitris Tyler M.D. LAB SURG PATH ORDERABLES Performing Organization Address City/State/ZIP Code Phon e Number [facility] - [address] [place], [place] [address] [facility] [place] [address] [facility] [address] documented in this encounter Visit Diagnoses Diagnosis Malignant Neoplasm Of Bladder (HCC) documented in this encounter
--- OUTSIDE RECORDS SUMMARY | 2022-01-16 15:57 | XMS_ITS | Encounter Summary ---
:1935 Author Organization [facility] Address [address] [place] [address] Care Team Providers Name Role Phone Unavailable Primary Care Provider Unavailable Reason for Referral Outpatient (Routine) - Closed Specialty Diagnoses / Procedures Referred By Contact Refer red To Contact Cardiovascular Diseases / Diagnoses Abnormal Stress Test ST Elevation Myocardial Infarction Of Unspecified Site (HCC) [facility] Justo FROST, M.S . [address] [place] [phone] Referral ID Status Reason Start Date Expiration Date Visits Requ ested Visits Authorized [id number] Closed 05/16/2019 05/15/2020 1 1 RIALS HANDLING COORDINATOR Encounter Details Date Type Department Care Team Description 05/16/2019 Orders Only Division of Lisa Snow Abnormal Stre ss Test (Primary Dx); Gastroenterology in MARGOT Zamudio, ST Ragan tion Myocardial Infarction Of Unspecified Site (HCC) [place], [place] Yehuda., M.S. [address] [facility] [address] [place] [phone] [place], [place] [phone] Social History Tobacco Use Types Packs/Day Years [...] Associated Order Schedule Diagnoses Cardiovascular Disease Outpatient Routine Abnormal Stress Ex pected: - General cardiology Referral Test 05/16/2019 consult (clinic) ST Elevation (Approximat e), Myocardial Expires: Infarction Of 05/16/2022 Unspecified Site (HCC) documented as of this encounter Visit Diagnoses Diagnosis Abnormal Stress Test - Primary ST Elevation Myocardial Infarction Of Un specified Site (HCC) documented in this encounter
--- OUTSIDE RECORDS SUMMARY | 2022-01-16 15:57 | XMS_ITS | Encounter Summary ---
:1935 Author Organization [facility] Address [address] [place] [id number] Care Team Providers Name Role Phone Elsewhere, Pcp Primary Care Provider Unavailable Encounter Details Date Type Department Care Team Description 05/26/2019 - Hospital [facility] Marybel Herbert M.B.B.S. [address] [place] [phone] Atrial Fibrillation (HCC) (Primary Dx); 05/29/2019 Encounter Hospital, Guillermina Eagle M.D. [address] [place] [phone] [facility] [address] [place] [phone] [facility], Fourth Floor [address] [place] [address] Social History Tobacco Use Types Packs/Day [...] Sign Reading Time Taken Comments Blood Pressure 102/72 05/29/2019 3:56 AM COVER MAKING MACHINE OPERATOR Pulse 79 05/29/2019 4:00 AM COVER MAKING MACHINE OPERATOR Temperature 36.4 ??C (97.5 ??F) 05/29/2019 3:56 AM COVER MAKING MACHINE OPERATOR Respiratory Rate 14 05/29/2019 7:00 AM COVER MAKING MACHINE OPERATOR Oxygen Saturation 94% 05/29/2019 4:00 AM COVER MAKING MACHINE OPERATOR Inhaled Oxygen Concentration - - Weight 77.6 kg (171 lb 1.2 oz) 05/29/2019 3:53 AM COVER MAKING MACHINE OPERATOR Height 179 cm (5' 10.47) 05/26/2019 8:30 PM COVER MAKING MACHINE OPERATOR Body Mass Index 24.22 05/26/2019 8:30 PM COVER MAKING MACHINE OPERATOR documented in this encounter Discharge Summaries Tracey Castro APRN, C.N.P. - 05/29/2019 2:28 PM CST [facility] DISCHARGE SUMMARY DATE OF ADMISSION: 05/26/2019 DATE OF DISCHARGE: 05/29/19 Discharge Provider: Marybel Herbert M.B.B.SCarey Discharge Provider Team: T [facility] PRINCIPAL DIAGNOSIS Flutter Atrial (HCC) DISMISSAL DIAGNOSES Acute systolic congestive heart failure, EF 15-20% Paroxysmal atrial tachycardia/flutter with RVR, [id number] Mild coronary artery atherosclerosis Dilated cardiomyopathy, nonischemic Right frontal parafalcine meningioma Left bundle branch block, first noted 04/24/19 GERD, on pantoprazole 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 - Diuretic initiated, titrate as indicated. - Titrate heart failure medications to maximum tolerated dose. - Reassess EF 3 months after medication titrate complete to assess for need for ICD. RESTRICTIONS: For 24 hours postprocedure, no lifting anything greater than 5 lbs, avoid strenuous activities. Do not soak the affected hand or arm for 3 days. FOLLOW-UP APPOINTMENTS Future Appointments Date Time Provider Department Center 06/03/2019 10:30 AM RM PROC [facility] 01 [facility] Spec 06/03/2019 4:30 PM Louie Borrero M.D., Ph.D. [facility] Spec HOSPITAL COURSE Admission Weight: 80.8 kg Dismissal Weight: 77.6 kg BMI: Body mass index is 24.22 kg/m??. Mr. Franz is an 84-year-old gentleman who presented to his local ED due to palpitations and shortness of breath, found to be in atrial flutter with rapid ventricular response. Past medical history significant for Vicente's esophagus, hypothyroidism, and obstructive sleep apnea. He had no known priorcardiac history until a recent diagnosis of a new left bundle branch block noted on ECG during procedure prompting nuclear stress test. Findings showed a medium size infarction involving the mid and apical anterior and anterior septal ruby and apex. There was no evidence of reversible myocardial ischemia. He had severe left ventricular enlargement with an estimated ejection fraction of 22%. He was admitted to the Heart rhythm Service for further management of new onset atrial flutter with rapid ventricular response. ?? Mr. Franz is a somewhat poor historian and has some difficulty remembering recent details. But, hereported noting intermittent pounding sensation in his chest for 2-3 days that worsened the evening of admission. This was accompanied by some dizziness and lightheadedness, especially with standing. He has not had falls or syncope. He denied any associated chest pain or pressure. In the ED, he was reportedly in atrial flutter with rapid rates. He was given IV diltiazem and briefly had conversion to normal sinus rhythm per outside report with rates in the 90s; however, he then returned to rapid atrial flutter. Diltiazem drip was continued. IV heparin initiated and he was transfered to [facility] for further treatment. ?? Transthoracic echocardiogram revealed severely enlarged left ventricle, ejection fraction 15-20%, severe generalized left ventricular hypokinesis, moderately reduced right ventricular systolic function, RVSP 56 mmHg, mild-moderate aortic valve regurgitation, mild tricuspid valve regurgitation, severely enlarged inferior vena cava size with reduced inspiratory collapse (<50%), and small pericardialeffusion. Coronary angiogram revealed mild coronary artery atherosclerosis/non-ischemic cardiomyopathy. 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 No intervention was required. He was diuresed with IV Lasix and transitioned to oral torsemide. Metoprolol tartrate initiated for heart rate control. This was transitioned to metoprolol succinate at discharge. Low dose lisinopril was also added. Anticoagulation was transitioned from heparin to apixaban following his procedure. Heart failure guideline directed medical therapy should continue to be up titrated in the outpatient setting to maximum tolerated. CT Head was completed due to increased confusion and agitation. This showed a slight interval increase in the calcified right front parafalcine meningioma with associated edema. Findings were discussedwith the Neurology consulting team. Impression was that his confusion and agitation seemed consistent with delirium in the setting of his underlying cognitive dysfunction as the meningioma did not appear significantly different in their opinion and the confusion had been waxing and waning with no focal deficits and no seizure activity noted. Recommended minimizing interruptions as much as we are able, as well as maximizing sleep with trial of melatonin. Neurology offered to assist with setting up outpatient follow-up with Dr. Harrison. TEST RESULTS PENDING AT DISCHARGE: none DISCHARGE DISPOSITION: Home or Self Care [1] CONDITION ON DISCHARGE: Stable. PRIMARY PROVIDER Patient Care Team: Valentino Thomas M.D. as External Primary Care Physician (Family Medicine) Primary Care Providers: Elsewhere, Pcp (General) [address] [facility] [address] Primary Care Provider Phone Number: None Primary Care Provider Fax Number: None R MAKING MACHINE OPERATOR documented in this encounter Discharge Instructions Discharge InstructionsWen Brambila - 05/29/2019 10:11 AM CST You were discharged from the [facility]. Please identify this service name if you call with questions after hospitalization. R MAKING MACHINE OPERATOR AttachmentsThe following attachments cannot be sent through Care Everywhere. Apixaban (By mouth) ([place] Ze[place])Lisinopril (By mouth) ([place])Metoprolol (By mouth) ([place])Torsemide (By mouth) ([place])documented in this encounter Medications at Time of Discharge Medication Sig Dispensed Refills Start Date End Date fluticasone (FLONASE) 50 Administer 1 spray 0 mcg/actuation nasal into each nostril spray daily as needed for rhinitis. levothyroxine Take 1 tablet (100 0 05/29/2019 (SYNTHROID, LEVOTHROID) mcg total) by mouth 100 mcg tablet every morning. loratadine (CLARITIN) 10 Take 1 tablet by [...] peg 400-propylene glycol Administer 1 drop 0 09/2013 (SYSTANE) 0.4-0.3 % into both eyes [...] a an (PRESERVISION AREDS 2 day. ORAL) famotidine (PEPCID) 40 Take 1 tablet (40 mg 90 tablet 3 01/202005/06/2020 mg tablet total) by mouth at bedtime. acetaminophen (TYLENOL) Take 1 tablet by 0 201307/09/2019 325 mg tablet mouth as needed. 1 or 2 325mg prn/ or 1 or 2 500mg prn for pain. apixaban (ELIQUIS) 5 mg Take 1 tablet (5 mg 60 tablet 2 06/201906/19/2019 tablet total) by mouth 2 (two) times a day. Carafate 100 mg/mL TAKE 2 TEASPOONFUL 900 mL 12 0 09/29/2020 suspension (10 ML) THREE TIMES A DAY AFTER MEALS lisinopriL Take 1 tablet (2.5 mg 30 tablet 2 05/30/2019 (PRINIVIL,ZESTRIL) 2.5 total) by mouth mg tablet daily. metoprolol succinate Take 1 tablet (50 mg 30 tablet 2 05/2906/18/2019 (TOPROL-XL) 50 mg 24 hr total) by mouth tablet daily. Do not crush or chew. torsemide (DEMADEX) 10 Take 1 tablet (10 mg 30 tablet 2 06/201906/26/2019 mg tablet total) by mouth daily. Weigh yourself daily. Take an extra 10 mg, if you gain 2 lb in 1 day or 5 lb in 1 week. venlafaxine (EFFEXOR) 0 05/26/2019 37.5 mg tablet documented as of this encounter Progress Notes Marybel Herbert M.B.B.S. - 05/29/2019 12:26 PM CST [facility] SUPERVISORY NOTE SUBJECTIVE Mr. Franz has no acute complaints this morning. He states that he feels better than he has in recent weeks. Yesterday, he underwent a CT scan of the head given his confusion. This demonstrated a frontal lobe meningioma. This was reviewed by Neurology who felt his confusion was most likely associated with delirium and no specific therapy was required from the meningioma aspect at this moment in time. He willfollow up as an outpatient. Later in the day, he went for coronary angiography which demonstrated no significant coronary arterydisease. He did have a distal LAD myocardial bridge. This would not explain his cardiomyopathy. His mental state has been stable. From a heart rhythm perspective, he has maintained sinus rhythm for much longer periods than previous. He has tolerated the initiation of metoprolol and lisinopril. Inaddition, he is anticoagulated with apixaban given his history of atrial flutter PHYSICAL EXAM BP 102/72 (BP Location: Left arm;Upper, Patient Position: Sitting) Pulse 79 Temp 36.4 ??C (Oral) Resp 14 Ht 179 cm Wt 77.6 kg SpO2 94% BMI 24.22 kg/m?? General: Comfortable at rest. Mood is pleasant. Mild confusion noted. PLAN 1. Atrial flutter/tachycardia 2. Newly identified cardiomyopathy, nonischemic etiology, ejection fraction 22% 3. Abnormal stress test with anterior wall infarction A. Myocardial bridge distal LAD, but no significant disease 4. Left bundle branch block 5. Gastroesophageal reflux disease 6. Vicente's esophagus 7. Esophageal adenocarcinoma, under observation 8. Hyperlipidemia 9. Hypothyroidism 10. Obstructive sleep apnea 11. History of meningioma Mr. Franz is doing well. He has no significant complaints. I think he is ready for hospital discharge. He will continue up titration of his medical therapy. Metoprolol tartrate can be transitioned tometoprolol succinate. He has follow-up with Dr. Borrero in 5 days time. Further up titration of his medical therapy can be made following this. In addition, he will likely benefit from being seen in the Heart failure Clinic. We discussed the importance of salt and fluid restriction. We discussed the importance of daily weights at the same time in the same state to assess for any fluid accumulation. We reviewed the idea of taking extra diuretic if 2 lb in 1 day or 5 lb in 1 week are gained. His heart rhythm is significantly improved. This supports the notion that his tachycardia was likelyrelated to his cardiomyopathy than the other way around. However, if he continues to have heart rhythm issues moving forward than specific therapy directed at this can be attempted. Remainder as per Ms. Tracey Castro, MARGOT, PROCUREMENT COORDINATOR. Summary of recommendations: 1. Up titration of GDMT as outpatient 2. Continue anticoagulation 3. Discharge today Electronically signed by: Cj Rodriguez. 05/29/19 12:26 PM COVER MAKING MACHINE OPERATOR R MAKING MACHINE OPERATOR Yasmine Randle R.R.T., L.R.T. - 05/28/2019 10:58 PM CST Non-Invasive Support: BPAP/CPAP Interface: Nasal prongs Patient on CPAP Autoset 4-12 cm H20 for the night. R MAKING MACHINE OPERATOR Marybel Herbert M.B.B.S. - 05/28/2019 1:17 PM CST [facility] SUPERVISORY NOTE SUBJECTIVE Mr. Franz has no acute complaints this morning. Yesterday, he went for coronary angiography but had some confusion. This was therefore aborted. At the time of my visit after that, he was back to his usual state. Overnight, he had further delirium. He did have intermittent sleep. His who was with him confirms the baseline change. There is no focal neurological deficit otherwise. He has remained hemodynamically stable with intermittent (likely) atrial tachycardia. He has tolerated the initiation of metoprolol. He has been on IV heparin. PHYSICAL EXAM BP 95/76 (BP Location: Left arm, Patient Position: Sitting) Pulse 80 Temp 36.5 ??C (Oral) Resp(!) 25 Ht 179 cm Wt 77.2 kg SpO2 96% BMI 24.09 kg/m?? General: Comfortable at rest. Mood is pleasant. Mild confusion noted. JVP mildly elevated. PLAN 1. Atrial flutter/tachycardia 2. Newly identified cardiomyopathy, unclear etiology, ejection fraction 22% 3. Abnormal stress test with anterior wall infarction 4. Left bundle branch block 5. Gastroesophageal reflux disease 6. Vicente's esophagus 7. Esophageal adenocarcinoma, under observation 8. Hyperlipidemia 9. Hypothyroidism 10. Obstructive sleep apnea 11. History of meningioma We will proceed with a CT scan given his confusion. He does have a known meningioma which is under observation. We will likely require neurology input for further assessment. We will try and optimize sleep protocol. In addition, we would like to proceed with coronary angiography if possible to delineate the etiology of his cardiomyopathy. He will continue on IV heparin for the time being. Transition to oral anticoagulation will be made following this pending the results given his history of atrial flutter. We will add lisinopril given his cardiomyopathy. His medications will be up titrated. Given his elevated JVP, we will gently diurese. Remainder as per Ms. Aguilar. Summary of recommendations: 1. CT head plus or minus neurology consultation 2. Coronary angiography 3. Lisinopril. Electronically signed by: Cj Rodriguez. 05/28/19 1:21 PM COVER MAKING MACHINE OPERATOR R MAKING MACHINE OPERATOR Jennie Aguilar P.A.-C., M.S. - 05/28/2019 9:34 AM CST [facility] CARDIOLOGY INPATIENT PROGRESS NOTE SUBJECTIVE Mr. Franz was seen and examined on morning rounds. He reports he slept okay, however was interrupted every 2 hours overnight when nursing staff was in his room. Patient quite upset by this and somewhat agitated. He seemed confused as to where he is at and not understanding why nursing staff was in his room. Per nursing report, patient was often attempting to get out of bed overnight to void, and was setting off the bed alarm, therefore they were required to be in his room for safety to prevent falls and turn off the bed alarm. TELEMETRY Sinus rhythm with runs of atrial tachycardia/atrial flutter. INTAKE/OUTPUT Past 24 hours: Intake/Output Summary (Last 24 hours) at 05/28/2019 0934 Last data filed at 05/28/2019 0300 Gross per 24 hour Intake 256.65 ml Output -- Net 256.65 ml Admission Weight: 80.8 kg Today's weight: 77.2 kg Body mass index is 24.09 kg/m??. VITAL SIGNS Temperature: [36.5 ??C-36.9 ??C] 36.5 ??C Heart Rate: [68-126] 108 Resp Rate: [7-26] 14 Blood Pressure: (99-123)/(55-91) 103/77 SpO2: [93 %-96 %] 96 % Weight: [77.2 kg] 77.2 kg BMI (Calculated): [24.1 kg/m??] 24.1 kg/m?? Pulse Rate: [60-124] 122 PHYSICAL EXAMINATION General: Agitated, upset Heart: Regular rhythm with rapid rates. No murmur. JVP elevated. Lungs: Clear to auscultation bilaterally and throughout. On room air. No cough. Abdomen: Soft, non-distended, non-tender to palpation throughout. Positive bowel sounds. Extremities: Mild peripheral edema, positive peripheral pulses. DIAGNOSTICS I personally reviewed all radiology and labs from the past 24 hrs. Hemoglobin 12.8, WBCs 6.3, Platelets 210, Sodium 142, Potassium 4.1, Creatinine 1.08, BUN 14, Glucose 99, Heparin Anti-Xa 0.47. 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 Franz is a 84 year old male admitted to the Heart Rhythm service on 05/26/2019 due to new onset atrial flutter with rapid ventricular response. Diltiazem infusion, which was started in the local ED was not continued as rates were 90s-low 100s on admission and he has been asymptomatic. He was instead initiated on metoprolol tartrate. Echocardiogram was obtained yesterday which showed an estimated EF of 15-20%, severely enlarged LV, severe generalized LV hypokinesis (best preserved segments are:basal, lateral, posterior and inferior), moderately reduced RV systolic function (preserved at base), estimated RVSP 56 mmHg, mild-moderate AVR, mild TR, severely enlarged IVC with reduced inspiratory collapse and a small pericardial effusion. We had planned to proceed with coronary angiogram with possible intervention, however due to increased confusion after patient got to the lab, this was not done. I assessed patient when he had gotten back to his room last evening and he was back at his baseline, with no focal neuro deficits. This morning however, patient is more confused and quite agitated. He was apparently up often overnight and set off the bed alarm every couple of hours with attempting to get out of bed on his own. PLAN: --CT head due to increased confusion/agitation this morning --Urinalysis --Coronary angiogram with possible intervention pending; was not completed yesterday afternoon due to his confusion --Continue IV Heparin for anticoagulation for now; will likely transition to warfarin or DOAC after angiogram --Continue metoprolol tartrate 25 mg BID which was started on admission; uptitrate as needed for heart rate control; continue atorvastatin 40 mg QD --Add lisinopril 2.5 mg daily --Continue gentle diuresis with 20 mg IV Lasix this morning; reassess fluid status later today; weight is down 2.3 kg from yesterday (Is & Os inaccurate as patient refusing to save urine for charting) --I have spoke with GI regarding his routine surveillance EGDs, with next due in October 2019, and they would be comfortable delaying that if he does need a coronary stent and require Plavix therapy. They would require no Plavix for 7 days and INR of <1.5 --We have also spoken with Urology regarding the patient's routine surveillance cystoscopies, next one scheduled for 06/02, and they would require Plavix to be held for at least 5 days and INR <1.3.This could also be delayed if patient does require a coronary stent. VTE: IV Heparin GI: Pantoprazole Code Status: Full Code Disposition: Home - self care Jennie Aguilar P.A.-C., M.S. 05/28/19 T [facility] ADDENDUM: CT Head was completed showing a slight interval increase in the calcified right front parafalcine meningioma with associated edema. I spoke with the Neurology consulting team and asked them to review the scans as well as the patient's history. Impression was that his confusion and agitation seemed consistent with delirium in the setting of his underlying cognitive dysfunction as the meningioma did not appear significantly different in their opinion and the confusion has been waxing and waning with no focal deficits and no seizure activity noted. Recommended minimizing interruptions as much as we are able, maximizing sleep, avoidance of Haldol as he may be sensitive to that medication. Wewould be ok to trial melatonin for sleep and possibly low dose Seroquel if symptoms persist. IV or IM olanzapine may be a 2nd line option if patient were to become very agitating and unsafe. Also suggested checking free T4 as TSH was elevated on admission. Neurology is happy to come see the patient and evaluate further if continued concern or changes in symptoms noted. They also suggested outpatient follow-up with Dr. Harrison may be warranted if the patient/spouse are interested. ADDENDUM: 1650 Angiogram was completed and showed mild coronary artery atherosclerosis/non- ischemic CMP. 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 No intervention was required. Our plan is to continue to treat HF with goal direc radha medical therapy and rate control with uptitration of metoprolol tartrate as tolerated, with transition to metoprolol succinate at discharge. We will increase the metoprolol tartrate to 37.5 mg thisevening. We will also continue to gently diurese. Will transition to apixaban for anticoagulation. Nadiya Rosas R.R.T. - 05/27/2019 11:38 PM CST The patient is refusing pap at this time. The RN is aware. Jennie Lopez P.A.-C., M.S. - 05/27/2019 9:37 AM CST [facility] CARDIOLOGY INPATIENT PROGRESS NOTE SUBJECTIVE Mr. Franz was seen and examined on morning rounds. He denies any chest discomfort, palpitations orshortness of breath at this time. He mentions poor sleep overnight, otherwise no complaints. TELEMETRY Atrial tachycardia/atrial flutter. INTAKE/OUTPUT Past 24 hours: Intake/Output Summary (Last 24 hours) at 05/27/2019 0937 Last data filed at 05/27/2019 0400 Gross per 24 hour Intake 52.22 ml Output 100 ml Net -47.78 ml Admission Weight: 80.8 kg Today's weight: 79.5 kg Body mass index is 24.81 kg/m??. VITAL SIGNS Temperature: [36.4 ??C-36.9 ??C] 36.9 ??C Heart Rate: [79-130] 106 Resp Rate: [10-25] 17 Blood Pressure: (108-126)/(72-86) 126/86 SpO2: [91 %-96 %] 91 % Height: [179 cm] 179 cm Weight: [79.5 kg-80.8 kg] 79.5 kg BSA (Calculated - sq m): [2 sq meters] 2 sq meters BMI (Calculated): [24.8 kg/m??-25.2 kg/m??] 24.8 kg/m?? Pulse Rate: [92-121] 112 PHYSICAL EXAMINATION General: Alert and oriented, in no apparent distress. Heart: Regular rhythm with rapid rates. No murmur. Lungs: Clear to auscultation bilaterally and throughout. On room air. No cough. Abdomen: Soft, non-distended, non-tender to palpation throughout. Positive bowel sounds. Extremities: Mild peripheral edema, positive peripheral pulses. DIAGNOSTICS I personally reviewed all radiology and labs from the past 24 hrs. Hemoglobin 11.6, WBCs 5.1, Platelets 167, Sodium 138, Potassium 4.2, Creatinine 0.99, BUN 17, Glucose 116, Heparin Anti-Xa 0.19. 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, under surveillance #8 Hyperlipidemia #9 Hypothyroidism #10 Obstructive sleep apnea #11 Mild cognitive impairment #12 History of urothelia carcinoma, under surveillance PLAN: --Transthoracic echocardiogram to assess current cardiac function due to recently noted drop in EF to 22% on outside nuclear stress test --Coronary angiogram with possible intervention if obstructive lesions noted --Continue IV Heparin for anticoagulation for now; will likely transition to warfarin or DOAC --Continue metoprolol tartrate 25 mg BID which was started on admission; uptitrate as needed for heart rate control; continue atorvastatin 40 mg QD --We will plan to gently diurese following procedures today --We will not proceed with cardioversion as patient appears to be going in and out of sinus and atrial tachycardia/atrial flutter, therefore cardioversion not likely to be effective in maintaining sinus rhythm --I have spoke with GI regarding his routine surveillance EGDs, with next due in October 2019, and they would be comfortable delaying that if he does need a coronary stent and require Plavix therapy. They would require no Plavix for 7 days and INR of <1.5 --We have also spoken with Urology regarding the patient's routine surveillance cystoscopies, next one scheduled for 06/02, and they would require Plavix to be held for at least 5 days and INR <1.3.This could also be delayed if patient does require a coronary stent. VTE: IV Heparin GI: Pantoprazole Code Status: Full Code Disposition: Home - self care Jennie Aguilar P.A.-C., M.S. 05/27/19 [facility] R MAKING MACHINE OPERATOR documented in this encounter H&P Notes Marybel Herbert M.B.B.S. - 05/27/2019 12:35 PM CST SUPERVISORY NOTE I met, interviewed, and examined Mr. Franz with the team of medical residents and nurse practitioners. I agree with the history of present illness, past medical, surgical, social and family histories, as well as allergies, medications and review of systems as documented. I have also reviewed the pert inent test results. I agree with the physical examination, assessment, and plan as documented by Dr. Funes and Ms. Aguilar in addition to what I have documented below. HISTORY OF PRESENT ILLNESS This is an 84-year-old gentleman with history of Vicente's esophagus, hyperlipidemia, hypothyroidismand obstructive sleep apnea. He was recently identified to have new left bundle branch block following which stress testing demonstrated findings suggestive of prior myocardial infarction involving the anterior/anteroseptal left ventricle. Ejection fraction was 22%. He was evaluated by Dr. Borrero in the outpatient arena with plans made to confirm his reduced ejection fraction is testing was performed externally. However, he was readmitted yesterday with palpitations and occasional chest discomfort including theleft arm that was associated with lightheadedness. He has not had any syncope or near syncope. In the emergency department, he was felt to be in an atrial flutter with a ventricular response of 150 beats per minute. He was given intravenous diltiazem and had conversion to sinus rhythm. Since that time, he has had episodes of intermittent tachycardia (atrial tachycardia versus flutter) interspersed with sinus rhythm. In view of this, he was transferred to us for further management. At the time of my visit this morning, he had no significant complaints. He was resting comfortably. He denied any chest discomfort, palpitations, lightheadedness/presyncope, orthopnea or paroxysmal nocturnal dyspnea. PHYSICAL EXAMINATION BP 126/86 Pulse (!) 112 Temp 36.9 ??C (Oral) Resp 17 Ht 179 cm Wt 79.5 kg SpO2 91% BMI24.81 kg/m?? General: Patient is comfortable at rest. Mood is appropriate. HEENT: No conjunctival pallor or significant scleral icterus. Vessels: Regular pulse, occasionally tachycardic. No radial-radial delay. Normal capillary refill time. No digital clubbing. JVP is mildly elevated at 45??. Waveform appears normal. Heart: Diminished apical impulse. Normal S1 and S2. No added sounds. No murmurs. No pericardial rub. Lungs: Percussion note is resonant. Good air entry bilaterally. No wheezing. No crackles. Abdomen: Soft and nontender. Extremities: No lower extremity edema. PERTINENT INVESTIGATIONS Hemoglobin 12.0, platelets 187, white count 5.2. Creatinine 0.99. NT proBNP 7127. TSH 7.3. ECG from yesterday at 9:14 p.m. demonstrates likely atrial tachycardia versus atrial flutter (flutter wave buried within the terminal phase of the QRS) at a rate of 125 beats per minute. Left bundle branch block morphology is noted. T- wave inversions noted in the inferolateral leads, different to prior ECG. ASSESSMENT 1. Atrial flutter/tachycardia 2. Newly identified cardiomyopathy, unclear etiology, ejection fraction 22% 3. Abnormal stress test with anterior wall infarction 4. Left bundle branch block 5. Gastroesophageal reflux disease 6. Vicente's esophagus 7. Esophageal adenocarcinoma, under observation 8. Hyperlipidemia 9. Hypothyroidism 10. Obstructive sleep apnea PLAN The etiology of Mr. Franz's cardiomyopathy has yet to be determined. We will proceed with a TTE. Isuspect this will confirm his cardiomyopathy. Following this, we will proceed with coronary angiography to delineate coronary anatomy. His rhythm appears to be consistent with atrial tachycardia/flutter. Given the intermittent nature, there is no indication for cardioversion. We will initiate guideline driven medical therapy which will include beta blockers, Manuelito inhibition, continue statin therapy and reassess. We will continue IV heparin for the time being and will transition him to oral anticoagulation following his coronary angiogram should we proceed. Prior to this, however, we will liaise with our GI colleagues to ensure that there is no contraindication given his esophageal adenocarcinoma. If he continues to have paroxysmal tachycardia despite optimal therapy then we can consider antiarrhythmic therapy versus catheter ablation. The patient was in agreement with the plan noted above. All questions were answered and he expressedunderstanding. Remainder as per Dr. Funes and Ms. Aguilar Summary of recommendations: 1. TTE, likely followed by coronary angiogram 2. Guideline driven medical therapy for heart failure 3. Continue IV heparin for now. Transition to oral anticoagulation after angiogram Cj Rodriguez. 05/27/2019 R MAKING MACHINE OPERATOR Alfonso Jackson M.D. - 05/26/2019 10:00 PM CST SUBJECTIVE CHIEF COMPLAINT Patient is a 84 y.o. male who presents with atrial fibrillation/flutter with rapid ventricular rate HISTORY OF PRESENT ILLNESS Mr. Franz is a pleasant 84-year-old gentleman with PMH of Vicente's esophagus, hypothyroidism, andobstructive sleep apnea who had no known prior cardiac history until a recent diagnosis of a new left bundle branch block with findings indicative of likely prior myocardial infarction involving the mid apical anterior and anteroseptal wall with what I would presume to be an ischemic cardiomyopathy with an ejection fraction of 22%. He is admitted here this evening to the Heart rhythm Service for further management of new onset atrial fibrillation/flutter with rapid ventricular response. Mr. Franz is a somewhat poor historian and has some difficulty remembering recent details, but from what he tells me, he has been noting an intermittent pounding sensation in his chest over the past 2-3 days that worsened this evening. This has been accompanied by some dizziness and lightheadedness, especially with standing. He has not had falls or syncope. This evening, he had an increasing sensation of pounding in his chest along with shortness of breath, prompting his to take him to the local ED. He denied any associated chest pain or pressure. In the ED, he was reportedly in atrial flutter with rapid rates. He was given IV diltiazem and briefly had conversion to normal sinus rhythm per outside report with rates in the 90s; however, he then returned to rapid atrial flutter. Diltiazem drip was continued. Dr. Herbert with the [facility] service here was called, who recommended IV heparin and transfer here for possible cardioversion in the morning. Here, Mr. Franz has rates varying from the 90s to 120s. He feels much improved since initial presentation, and no longer notes any palpitations. He denies chest pain/pressure, dyspnea, orthopnea, PND, or lower extremity edema. Regarding recent cardiac history, he had been undergoing EGD here at [facility] to monitor his Vicente's esophagus on 04/24/19 when he was incidentally noted to have new left bundle branch block on ECG. This led to workup at home which included Nuclear stress testing. This showed a medium size infarction involving the mid and apical anterior and anterior septal ruby and apex. There was no evidence of reversible myocardial ischemia. He had severe left ventricular enlargement with an estimated ejection fraction of 22%. This prompted cardiology referral here at [facility], and he saw Dr. Louie Borrero on 05/17/19. Dr. Borrero recommended transthoracic echo for confirmation of cardiomyopathy (currently not scheduled until 06/03/19) and recommended holding on any medical therapy or further workup until this wascompleted. No testing was completed at the time of his visit. The patient is a never smoker. Risk factors for CAD include dyslipidemia (on simvastatin currently). REVIEW OF SYSTEMS A complete review of systems was performed and was found to be negative except as otherwise noted per HPI. OBJECTIVE VITAL SIGNS Temperature: 36.9 ??C Heart Rate: 122 Resp Rate: 25 Blood Pressure: 108/72 SpO2: 96 % Height: 179 cm Weight: 80.8 kg BMI (Calculated): 25.2 kg/m?? PHYSICAL EXAM General: Patient is a pleasant well-appearing male who appears his stated age and is in no acute distress. Eyes: Anicteric sclera. Vessels: Jugular venous pressure appears within normal limits. Radial dorsalis pedis pulses are intact bilaterally. Heart: Distant heart sounds. Normal S1, S2. Tachycardic with occasional irregularity. No murmurs, gallops, or rubs appreciated. Lungs: Clear to auscultation bilaterally with good inspiratory effort. No wheezes, rales, or rhonchinoted. Abdomen: Soft, nontender. Nondistended. Extremities: Warm, well perfused. No cyanosis, clubbing, or lower extremity edema noted. Mental: Patient is alert and oriented x3 with appropriate mood and affect, although he notably has some difficulty remembering recent events that occurred today, but after further questioning and discussion, was eventually able to recall the day's events. DIAGNOSTICS I have reviewed relevant laboratory, imaging, and other diagnostics as applicable to this admission. ASSESSMENT / PLAN Mr. Franz is an 84 year old man with recently diagnosed new left bundle branch block leading to outside stress evaluation showing likely mid apical anterior/anteroseptal myocardial infarction with evidence of severe left ventricular enlargement and a reduced ejection fraction to 22%, who is now admit radha from the [place] ED with atrial fibrillation/flutter with rapid ventricular response. 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 He has not received any further doses of diltiazem since leaving the outside hospital. His initial ECG from [place] appears consistent with a likely atrial flutter with a rate of nearly 150 bpm. Rates slowed with initial diltiazem dosing. Here, rates have varied between 80s-90s up to 120. He has been vary stable and essentially asymptomatic since arrival here. I will plan the following: PLAN: - Initiate therapeutic heparin, moderate intensity, given [id number] of 4; he will need oral anticoagulation prior to discharge; the patient is opposed to warfarin, so would likely be Eliquis - Possible cardioversion was initially discussed with Dr. Herbert, and I will keep the patient NPO fornow; however, as he continuously appears to convert between sinus rhythm and a supraventricular rhythm on his own here, I don't think a cardioversion will successfully keep him in sinus rhythm without antiarrhythmic therapy, most likely with amiodarone; I will leave this for discussion with the HRS team tomorrow and will hold off on initiating any antiarrhythmic therapy tonight - He will likely need ELIZABETH, whether we plan to cardiovert electrically or chemically; I will hold on ordering this for now, but will discuss with HRS team in the AM; of note he has listed allergy/reaction of significant confusion/memory loss to both fentanyl and versed and typically has EGDs done undergeneral anesthesia - Given that his rates are ranging between 80/90 to 120 with stable vitals and no symptoms, I will hold off on restarting the IV diltiazem drip he was receiving outside; however, given that I anticipate he will need beta-joao therapy regardless, both possibly for chronic rate control and his heart f ailure, I will start oral metoprolol tartrate tonight to see how he responds to this (which can be converted to succinate prior to discharge) - Once rate/rhythm control achieved, would pursue transthoracic echo for further workup of his cardiomyopathy, as had been planned outpatient - Will eventually need ischemic workup given newly diagnosed dilated cardiomyopathy, possibly with angiogram, either while inpatient currently or later on as outpatient #6 Dyslipidemia - home simvastatin 20 mg - will switch to high intensity with atorvastatin 40 mg daily, given likelycoronary disease given evidence of recent NM - lipid panel here on admission shows LDL at 74 - goal would be <70 #7 Hypothyroidism - continue home levothyroxine (of note, patient tells me his current dose is 100 mcg daily, recentlylowered, although the listed dose in our chart had been 137 mcg daily) - TSH is 7.3 #8 BPH #9 History of bladder cancer March 2018 - continue Flomax (of note, patient tells me dose is 0.4 mg daily, recently lowered from 0.8 daily as had been listed in chart) #9 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 - 05/29/2019 2:50 PM CST Shift Goals: Clinical Goals for the Shift: Patient will remain free from falls overnight Identify possible barriers to meeting goals/advancing plan of care: End of Shift Summary: met. Patient was stable to discharge R MAKING MACHINE OPERATOR Hammad Zambrano R.N. - 05/29/2019 5:54 AM CST Shift Goals: Clinical Goals for the Shift: Patient will remain free from falls overnight Identify possible barriers to meeting goals/advancing plan of care: Recent A-Fib RVR End of Shift Summary: Patient A&O to person only, no c/o pain, no PRN medication required. Rhythm SR - ST LBBB on telemetry, VSS. Patient slept well throughout the night after receiving 6mg Melatonin. No significant change in condition. Patient voiding. Patient on room air. Was call light appropriate overnight, no chair or bed alarms were set off. Please see flow sheets and assessments for details. R MAKING MACHINE OPERATOR documented in this encounter Miscellaneous Notes Hospital Course - Tracey Castro APRN, C.NCareyP. - 05/27/2019 5:06 PM COVER MAKING MACHINE OPERATOR Mr. Franz is an 84-year-old gentleman who presented to his local ED due to palpitations and shortness of breath, found to be in atrial flutter with rapid ventricular response. Past medical history significant for Vicente's esophagus, hypothyroidism, and obstructive sleep apnea. He had no known priorcardiac history until a recent diagnosis of a new left bundle branch block noted on ECG during procedure prompting nuclear stress test. Findings showed a medium size infarction involving the mid and apical anterior and anterior septal ruby and apex. There was no evidence of reversible myocardial ischemia. He had severe left ventricular enlargement with an estimated ejection fraction of 22%. He was admitted to the Heart rhythm Service for further management of new onset atrial flutter with rapid ventricular response. ?? Mr. Franz is a somewhat poor historian and has some difficulty remembering recent details. But, hereported noting intermittent pounding sensation in his chest for 2-3 days that worsened the evening of admission. This was accompanied by some dizziness and lightheadedness, especially with standing. He has not had falls or syncope. He denied any associated chest pain or pressure. In the ED, he was reportedly in atrial flutter with rapid rates. He was given IV diltiazem and briefly had conversion to normal sinus rhythm per outside report with rates in the 90s; however, he then returned to rapid atrial flutter. Diltiazem drip was continued. IV heparin initiated and he was transfered to [facility] for further treatment. ?? Transthoracic echocardiogram revealed severely enlarged left ventricle, ejection fraction 15-20%, severe generalized left ventricular hypokinesis, moderately reduced right ventricular systolic function, RVSP 56 mmHg, mild-moderate aortic valve regurgitation, mild tricuspid valve regurgitation, severely enlarged inferior vena cava size with reduced inspiratory collapse (<50%), and small pericardialeffusion. Coronary angiogram revealed mild coronary artery atherosclerosis/non-ischemic cardiomyopathy. 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 No intervention was required. He was diuresed with IV Lasix and transitioned to oral torsemide. Metoprolol tartrate initiated for heart rate control. This was transitioned to metoprolol succinate at discharge. Low dose lisinopril was also added. Anticoagulation was transitioned from heparin to apixaban following his procedure. Heart failure guideline directed medical therapy should continue to be up titrated in the outpatient setting to maximum tolerated. CT Head was completed due to increased confusion and agitation. This showed a slight interval increase in the calcified right front parafalcine meningioma with associated edema. Findings were discussedwith the Neurology consulting team. Impression was that his confusion and agitation seemed consistent with delirium in the setting of his underlying cognitive dysfunction as the meningioma did not appear significantly different in their opinion and the confusion had been waxing and waning with no focal deficits and no seizure activity noted. Recommended minimizing interruptions as much as we are able, as well as maximizing sleep with trial of melatonin. Neurology offered to assist with setting up outpatient follow-up with Dr. Harrison. R MAKING MACHINE OPERATOR documented in this encounter Plan of Treatment Scheduled Orders Name Type Priority Associated Diagnoses Order S chedule Cardiac Catheterization Cardiac Cath Routine Cardiomyopathy On ce for 1 Ischemic Occurrences starting 05/27/2019 unti l 05/27/2019 documented as of this encounter Procedures Procedure Name Priority Date/Time Associated Comments Diagnosis CBC WITHOUT Routine 05/29/2019 6:35 Results for DIFFERENTIAL, B AM COVER MAKING MACHINE OPERATOR this procedu re are in the results section. T3 Routine 05/29/2019 6:35 Results for (TRIIODOTHYRONINE), AM COVER MAKING MACHINE OPERATOR this pro cedure FREE, S are in the results section. T4 (THYROXINE), FREE, Routine 05/29/2019 6:35 Res ults for S AM COVER MAKING MACHINE OPERATOR this procedure are in the results section. BASIC METABOLIC Routine 05/29/2019 6:35 Results f or PANEL, S/P AM COVER MAKING MACHINE OPERATOR this procedure are in the results section. CARDIAC Routine 05/28/2019 4:04 Cardiomyopathy Results fo r CATHETERIZATION PM COVER MAKING MACHINE OPERATOR Ischemic this procedu re are in the results section. CARDIAC Routine 05/28/2019 4:04 Cardiomyopathy Results fo r CATHETERIZATION PM COVER MAKING MACHINE OPERATOR Ischemic this procedu re are in the results section. CT HEAD WITHOUT IV RAD - Routine 05/28/2019 Results for CONTRAST (most inpatients 10:52 AM COVER MAKING MACHINE OPERATOR this proced ure and all are in the outpatients) results section. HEPARIN LEVEL ANTI-XA Routine 05/28/2019 9:37 Res ults for ASSAY, P AM COVER MAKING MACHINE OPERATOR this procedure are in the results section. CBC WITHOUT Routine 05/28/2019 9:37 Results for DIFFERENTIAL, B AM COVER MAKING MACHINE OPERATOR this procedu re are in the results section. BASIC METABOLIC Routine 05/28/2019 9:37 Results f or PANEL, S/P AM COVER MAKING MACHINE OPERATOR this procedure are in the results section. ADULT OXYGEN THERAPY Routine 05/28/2019 8:01 AM COVER MAKING MACHINE OPERATOR ADULT OXYGEN THERAPY Routine 05/27/2019 8:01 PM COVER MAKING MACHINE OPERATOR HEPARIN LEVEL ANTI-XA Timed 05/27/2019 6:48 Res ults for ASSAY, P PM COVER MAKING MACHINE OPERATOR this procedure are in the results section. (TTE) 2D ECHO DOPPLER Routine 05/27/2019 3:55 Res ults for COLOR AND CONTRAST PM COVER MAKING MACHINE OPERATOR this proc edure are in the results section. HEPARIN LEVEL ANTI-XA Timed 05/27/2019 Result s for ASSAY, P 11:55 AM COVER MAKING MACHINE OPERATOR this procedure are in the results section. ADULT OXYGEN THERAPY Routine 05/27/2019 8:01 AM COVER MAKING MACHINE OPERATOR HEPARIN LEVEL ANTI-XA Timed 05/27/2019 4:51 Res ults for ASSAY, P AM COVER MAKING MACHINE OPERATOR this procedure are in the results section. CBC WITHOUT Routine 05/27/2019 4:51 Results for DIFFERENTIAL, B AM COVER MAKING MACHINE OPERATOR this procedu re are in the results section. CALCIUM, TOT, S/P Routine 05/27/2019 4:51 Results for AM COVER MAKING MACHINE OPERATOR this procedure are in the results section. LIPID PANEL, S STAT 05/26/2019 Results for 10:22 PM COVER MAKING MACHINE OPERATOR this procedure are in the results section. NT-PRO B-TYPE STAT 05/26/2019 Results for NATRIURETIC PEPTIDE 10:22 PM COVER MAKING MACHINE OPERATOR this pro cedure (BNP), S are in the results section. ACTIVATED PARTIAL STAT 05/26/2019 Results fo r THROMBOPLASTIN TIME 10:22 PM COVER MAKING MACHINE OPERATOR this pro cedure (APTT), P are in the results section. CBC WITH STAT 05/26/2019 Results for DIFFERENTIAL, B 10:22 PM COVER MAKING MACHINE OPERATOR this procedu re are in the results section. THYROID-STIMULATING STAT 05/26/2019 Results for HORMONE-SENSITIVE 10:22 PM COVER MAKING MACHINE OPERATOR this proce dure (S-TSH) are in the results section. PHOSPHORUS STAT 05/26/2019 Results for (INORGANIC), S 10:22 PM COVER MAKING MACHINE OPERATOR this procedur e are in the results section. MAGNESIUM, S STAT 05/26/2019 Results for 10:22 PM COVER MAKING MACHINE OPERATOR this procedure are in the results section. BASIC METABOLIC STAT 05/26/2019 Results for PANEL, S/P 10:22 PM COVER MAKING MACHINE OPERATOR this procedure are in the results section. ADULT OXYGEN THERAPY Routine 05/26/2019 9:33 PM COVER MAKING MACHINE OPERATOR ADULT OXYGEN THERAPY Routine 05/26/2019 9:33 PM COVER MAKING MACHINE OPERATOR ECG Routine 05/26/2019 9:14 Results for PM COVER MAKING MACHINE OPERATOR this procedure are in the results section. documented in this encounter Results (ABNORMAL) CBC without Differential (05/29/2019 6:35 AM COVER MAKING MACHINE OPERATOR) [facility] Method Time Signature Hemoglobin 11.9 (L) 13.2 - 05/29/2019 DTL 16.6 g/dL 7:46 AM COVER MAKING MACHINE OPERATOR Hematocrit 36.9 (L) 38.3 - 05/29/2019 DTL 48.6 % 7:46 AM COVER MAKING MACHINE OPERATOR Erythrocytes 4.15 (L) 4.35 - 05/29/2019 DTL 5.65 7:46 AM COVER MAKING MACHINE OPERATOR x10(12)/L MCV 88.9 78.2 - 05/29/2019 DTL 97.9 fL 7:46 AM COVER MAKING MACHINE OPERATOR RBC Distrib Width 13.6 11.8 - 05/29/2019 DTL 14.5 % 7:46 AM COVER MAKING MACHINE OPERATOR Platelet Count 190 135 - 317 05/29/2019 DTL x10(9)/L 7:46 AM COVER MAKING MACHINE OPERATOR Leukocytes 6.8 3.4 - 9.6 05/29/2019 DTL x10(9)/L 7:46 AM COVER MAKING MACHINE OPERATOR Specimen Anatomical Collection Method Collection Time Receive d Time (Source) Location / / Volume Laterality Blood (Blood, 05/29/2019 6:35 AM 05/29/19 7:32 Venous) COVER MAKING MACHINE OPERATOR AM COVER MAKING MACHINE OPERATOR Jennie Aguilar P.A.-C., M.S. LAB BLOOD ADD-ON Performing Organization Address City/State/ZIP Code Phon e Number [facility] - [address] [place] [address] [facility] [place] [address] [facility] [address] [facility] (ABNORMAL) Basic Metabolic Panel (05/29/2019 6:35 AM COVER MAKING MACHINE OPERATOR) athologist Signature Potassium, S 3.8 3.6 - 5.2 05/29/2019 DTL mmol/L 8:46 AM COVER MAKING MACHINE OPERATOR Sodium, S 143 135 - 145 05/29/2019 DTL mmol/L 8:46 AM COVER MAKING MACHINE OPERATOR Chloride, S 104 98 - 107 05/29/2019 DTL mmol/L 8:46 AM COVER MAKING MACHINE OPERATOR Bicarbonate, S 26 22 - 29 05/29/2019 DTL mmol/L 8:46 AM COVER MAKING MACHINE OPERATOR Anion Gap 13 7 - 15 05/29/2019 DTL 8:46 AM COVER MAKING MACHINE OPERATOR BUN (Blood Urea 16 8 - 24 05/29/2019 DTL Nitrogen), S mg/dL 8:46 AM COVER MAKING MACHINE OPERATOR Creatinine 1.20 0.74 - 05/29/2019 DTL 1.35 mg/dL 8:46 AM COVER MAKING MACHINE OPERATOR eGFR-Non 55 (L) >=60 05/29/2019 DTL Black/ mL/min/BSA 8:46 AM COVER MAKING MACHINE OPERATOR Ugandan Comment: ----ADDITIONAL INFORMATION---- Estimated GFR calculated using the 2009 CKD_EPI creatinine equation. eGFR-Black/ 64 >=60 mL/min/BSA 2019 8:46 AM COVER MAKING MACHINE OPERATOR DTL Comment: ----ADDITIONAL INFORMATION---- Estimated GFR calculated using the 2009 CKD_EPI creatinine equation. Calcium, Total, S 8.3 (L) 8.8 - 10.2 mg/dL 05/29/2019 8:46 AM COVER MAKING MACHINE OPERATOR DTL Glucose, S 91 70 - 140 mg/dL 05/29/2019 8:46 AM COVER MAKING MACHINE OPERATOR D TL Specimen Anatomical Collection Method Collection Time Receive d Time (Source) Location / / Volume Laterality Blood (Blood, 05/29/2019 6:35 AM 05/29/19 8:14 Venous) COVER MAKING MACHINE OPERATOR AM COVER MAKING MACHINE OPERATOR Jennie Aguilar P.A.-C., M.S. LAB BLOOD ADD-ON Performing Organization Address City/State/ZIP Code Phon e Number [facility] - [address] [place], [place] [address] [place] [address] [facility] [address] (ABNORMAL) T3 (Triiodothyronine), Free (05/29/2019 6:35 AM COVER MAKING MACHINE OPERATOR) athologist Signature T3 2.2 (L) 2.8 - 4.4 05/29/2019 [facility] (Triiodothyron pg/mL 11:13 AM COVER MAKING MACHINE OPERATOR ine), Free, S Specimen Anatomical Collection Method Collection Time Receive d Time (Source) Location / / Volume Laterality Blood (Blood, 05/29/2019 6:35 AM 05/29/19 20 Venous) COVER MAKING MACHINE OPERATOR 10:13 AM COVER MAKING MACHINE OPERATOR Jennie Aguilar P.A.-C., M.S. LAB BLOOD ADD-ON Performing Organization Address City/[facility]/ZIP Code Phon e Number [facility] [address] [place], [place] [address] [facility] [place] [address] Laboratory Medicine and Pathology [address] [place] T4 (Thyroxine), Free (05/29/2019 6:35 AM COVER MAKING MACHINE OPERATOR) athologist Signature T4 (Thyroxine), 1.5 0.9 - 1.7 05/29/2019 [facility] Free, S ng/dL 8:46 AM COVER MAKING MACHINE OPERATOR Specimen Anatomical Collection Method Collection Time Receive d Time (Source) Location / / Volume Laterality Blood (Blood, 05/29/2019 6:35 AM 05/29/19 8:14 Venous) COVER MAKING MACHINE OPERATOR AM COVER MAKING MACHINE OPERATOR Jennie Aguilar P.A.-C., M.SCarey LAB BLOOD ADD-ON Performing Organization Address City/State/ZIP Code Phon e Number [facility] - [address] [place], [place] [address] [place] [address] [facility] [address] CORONARY ANGIOGRAPHY, LEFT HEART CATHETERIZATION (05/28/2019 4:04 PM COVER MAKING MACHINE OPERATOR) Anatomical Region Laterality Modality X-Ray Angiography Specimen (Source) Anatomical Collection Method Collection Time Re ceived Time Location / / Volume Laterality 05/28/2019 3:32 PM COVER MAKING MACHINE OPERATOR Narrative 05/28/2019 4:10 PM COVER MAKING MACHINE OPERATOR For the complete report, see the [employer] Documents. PROCEDURE TYPES 1. ??CORONARY ANGIOGRAPHY 2. ??HEART CATHETERIZATION - LEFT FINAL DIAGNOSIS 1. ??Mild coronary artery atherosclerosi s 2. ??Non-ischemic CMP. PRE-PROCEDURE DIAGNOSIS 1. ??Cardiomyopathy Ischemic HEMODYNAMICS SUMMARY Normal systemic aortic pressure. Moderately elevated left ventricular end -diastolic pressure. ?? CORONARY DIAGNOSTIC SUMMARY Coronary artery dominance is right. Norm al left main coronary. The middle left anterior descending perry ry is 30% obstructed by a discrete lesion. The distal left anterior descending perry ry is 30% obstructed by a discrete lesion. The distal circumflex artery is 30% obst ructed by a discrete lesion. The middle right coronary artery is 30% obstructed by a discrete lesion. Intramyocardial brdge in distal LAD near apex causing 99-100% transient occlusion during systole without stenosis during diastole. RADIATION DOSE DATA Procedure cumulative skin dose (mGy): 37 7.36 Procedure cumulative dose area product ( Gy-cm2): 23.20 Fluoro Time (Min): 6.82 CONTRAST DOSE DATA IOHEXOL 350 MG IODINE/ML INTRAVENOUS VENITA UTION: 50mL For the complete report, see the [employer] Documents. Procedure Note Rosalba Crowe M.D. - 05/28/2019Format ting of this note might be different from the original. For the complete report, see the [employer] Documents. PROCEDURE TYPES 1. CORONARY ANGIOGRAPHY 2. HEART CATHETERIZATION - LEFT FINAL DIAGNOSIS 1. Mild coronary artery atherosclerosis 2. Non-ischemic CMP. PRE-PROCEDURE DIAGNOSIS 1. Cardiomyopathy Ischemic HEMODYNAMICS SUMMARY Normal systemic aortic pressure. Moderately elevated left ventricular end -diastolic pressure. CORONARY DIAGNOSTIC SUMMARY Coronary artery dominance is right. Norm al left main coronary. The middle left anterior descending perry ry is 30% obstructed by a discrete lesion. The distal left anterior descending perry ry is 30% obstructed by a discrete lesion. The distal circumflex artery is 30% obst ructed by a discrete lesion. The middle right coronary artery is 30% obstructed by a discrete lesion. Intramyocardial brdge in distal LAD near apex causing 99-100% transient occlusion during systole without stenosis during diastole. RADIATION DOSE DATA Procedure cumulative skin dose (mGy): 37 7.36 Procedure cumulative dose area product ( Gy-cm2): 23.20 Fluoro Time (Min): 6.82 CONTRAST DOSE DATA IOHEXOL 350 MG IODINE/ML INTRAVENOUS VENITA UTION: 50mL For the complete report, see the [employer] Documents. Jennie Aguilar P.A.-C., M.S. CV CARDIAC CATH PROCE DURES CT Head without IV Contrast (05/28/2019 10:52 AM COVER MAKING MACHINE OPERATOR) Anatomical Region Laterality Modality Head, Neuroradiology RST LOS, N/A Computed T omography, Computed Neuroradiology ARZ LOS, Neuroradiology T omography [facility] Specimen (Source) Anatomical Collection Method Collection Time Re ceived Time Location / / Volume Laterality 05/28/2019 10:47 AM COVER MAKING MACHINE OPERATOR Impressions 05/28/2019 11:13 AM COVER MAKING MACHINE OPERATOR Slight interval increase in size of heavily calcified right frontal parafalcine meningioma. Otherwise, simil ar extent of associated right frontal lobe mass effect, with attenuation the f rontal horn of the right lateral ventricle as well as associated vasogeni c edema. Narrative 05/28/2019 11:13 AM COVER MAKING MACHINE OPERATOR EXAM: CT HEAD WITHOUT IV CONTRAST COMPARISON: MR dated 07/12/2015 FINDINGS: Redemonstration of right anter ior parafalcine frontal region heavily calcified meningioma with right frontal lobe mass effect and similar extent of associated right frontal lobe vasogenic edema, within the limitations of intermodality comparisons. No midline sh ift. Stable minimal attenuation the frontal horn of the right lateral ventri tamiko. Meningioma grossly measures approximately 4.0 x 4.0 x 4.9 cm in grea test transverse, AP, and craniocaudal dimensions respectively, previously glenys sly 3.6 x 3.6 x 4.7 cm, overall slightly increased in size. Age commensurate brai n parenchymal volume loss. Chronic microvascular angiopathic change. There is otherwise preserved galvan-white matter differentiation without CT evidence for acute infarct or hemorrhage. Mild volume loss the cerebellar vermis and hemispher es. Brainstem and cerebellum otherwise intact. Paranasal sinuses without significant di sease. Mastoid air cells and middle ear cavities clear. Procedure Note Bobby Moody M.D. - 05/28/2019Form atting of this note might be different from the original. EXAM: CT HEAD WITHOUT IV CONTRAST COMPARISON: MR dated 07/12/2015 FINDINGS: Redemonstration of right anter ior parafalcine frontal region heavily calcified meningioma with right frontal lobe mass effect and similar extent of associated right frontal lobe vasogenic edema, within the limitations of intermodality comparisons. No midline sh ift. Stable minimal attenuation the frontal horn of the right lateral ventri tamiko. Meningioma grossly measures approximately 4.0 x 4.0 x 4.9 cm in grea test transverse, AP, and craniocaudal dimensions respectively, previously glenys sly 3.6 x 3.6 x 4.7 cm, overall slightly increased in size. Age commensurate brai n parenchymal volume loss. Chronic microvascular angiopathic change. There is otherwise preserved galvan-white matter differentiation without CT evidence for acute infarct or hemorrhage. Mild volume loss the cerebellar vermis and hemispher es. Brainstem and cerebellum otherwise intact. Paranasal sinuses without significant di sease. Mastoid air cells and middle ear cavities clear. IMPRESSION: Slight interval increase in size of heav gabbie calcified right frontal parafalcine meningioma. Otherwise, simil ar extent of associated right frontal lobe mass effect, with attenuation the f rontal horn of the right lateral ventricle as well as associated vasogeni c edema. Jennie Aguilar P.A.-C., M.S. IMG CT PROCEDURES Heparin Anti-Xa Assay (05/28/2019 9:37 AM COVER MAKING MACHINE OPERATOR) P athologist Signature Heparin 0.47 IU/mL 05/28/2019 DTL Anti-Xa, P 10:19 AM COVER MAKING MACHINE OPERATOR Comment: UFH therapeutic range: ?? 0.30-0.70 IU/mL LMWH therapeutic range: 0.50-1.00 IU/mL 0.50-1.00 IU/mL for twice daily dosing ? ? 1.00-2.00 IU/mL for once daily dosing (sample obtained 4-6 hours following sub cutaneous injection) LMWH prophylactic range:0.10-0.30 IU/mL ----ADDITIONAL INFORMATION---- Heparin Anti-Xa is used to measure hepar in concentrations in patients receiving low molecular weig ht heparin (LMWH) or unfractionated heparin (UFH). Specimen Anatomical Collection Method Collection Time Receive d Time (Source) Location / / Volume Laterality Blood (Blood, 05/28/2019 9:37 AM 05/28/19 20 Venous) COVER MAKING MACHINE OPERATOR 10:04 AM COVER MAKING MACHINE OPERATOR Jennie Aguilar P.A.-C., M.SCarey LAB BLOOD NON ADD-ON Performing Organization Address City/State/ZIP Code Phon e Number [facility] - [address] [place], [place] [address] [facility] [place] [address] [facility] [address] (ABNORMAL) Basic Metabolic Panel (05/28/2019 9:37 AM COVER MAKING MACHINE OPERATOR) P athologist Signature Potassium, S 4.1 3.6 - 5.2 05/28/2019 DTL mmol/L 11:18 AM COVER MAKING MACHINE OPERATOR Sodium, S 142 135 - 145 05/28/2019 DTL mmol/L 11:18 AM COVER MAKING MACHINE OPERATOR Chloride, S 105 98 - 107 05/28/2019 DTL mmol/L 11:18 AM COVER MAKING MACHINE OPERATOR Bicarbonate, S 26 22 - 29 05/28/2019 DTL mmol/L 11:18 AM COVER MAKING MACHINE OPERATOR Anion Gap 11 7 - 15 05/28/2019 DTL 11:18 AM COVER MAKING MACHINE OPERATOR BUN (Blood Urea 14 8 - 24 05/28/2019 DTL Nitrogen), S mg/dL 11:18 AM COVER MAKING MACHINE OPERATOR Creatinine 1.08 0.74 - 05/28/2019 DTL 1.35 mg/dL 11:18 AM COVER MAKING MACHINE OPERATOR eGFR-Non 63 >=60 05/28/2019 DTL Black/ mL/min/BSA 11:18 AM COVER MAKING MACHINE OPERATOR Ug[place]an Comment: ----ADDITIONAL INFORMATION---- Estimated GFR calculated using the 2009 CKD_EPI creatinine equation. eGFR-Black/ 72 >=60 mL/min/BSA 2019 11:18 AM COVER MAKING MACHINE OPERATOR DTL Comment: ----ADDITIONAL INFORMATION---- Estimated GFR calculated using the 2009 CKD_EPI creatinine equation. Calcium, Total, S 8.7 (L) 8.8 - 10.2 mg/dL 05/28/2019 11:1 8 AM COVER MAKING MACHINE OPERATOR DTL Glucose, S 99 70 - 140 mg/dL 05/28/2019 11:18 AM COVER MAKING MACHINE OPERATOR DTL Specimen Anatomical Collection Method Collection Time Receive d Time (Source) Location / / Volume Laterality Blood (Blood, 05/28/2019 9:37 AM 05/28/19 Venous) COVER MAKING MACHINE OPERATOR 10:57 AM COVER MAKING MACHINE OPERATOR Jennie Aguilar P.A.-C., M.S. LAB BLOOD ADD-ON Performing Organization Address City/[facility] Phon e Number [facility] - [address] (ABNORMAL) CBC without Differential (05/28/2019 9:37 AM COVER MAKING MACHINE OPERATOR) Patholo gist Method Time Signature Hemoglobin 12.8 (L) 13.2 - 05/28/2019 DTL 16.6 g/dL 10:11 AM COVER MAKING MACHINE OPERATOR Hematocrit 40.3 38.3 - 05/28/2019 DTL 48.6 % 10:11 AM COVER MAKING MACHINE OPERATOR Erythrocytes 4.52 4.35 - 05/28/2019 DTL 5.65 10:11 AM COVER MAKING MACHINE OPERATOR x10(12)/L MCV 89.2 78.2 - 05/28/2019 DTL 97.9 fL 10:11 AM COVER MAKING MACHINE OPERATOR RBC Distrib Width 13.5 11.8 - 05/28/2019 DTL 14.5 % 10:11 AM COVER MAKING MACHINE OPERATOR Platelet Count 210 135 - 317 05/28/2019 DTL x10(9)/L 10:11 AM COVER MAKING MACHINE OPERATOR Leukocytes 6.3 3.4 - 9.6 05/28/2019 DTL x10(9)/L 10:11 AM COVER MAKING MACHINE OPERATOR Specimen Anatomical Collection Method Collection Time Receive d Time (Source) Location / / Volume Laterality Blood (Blood, 05/28/2019 9:37 AM 05/28/19 20 Venous) COVER MAKING MACHINE OPERATOR 10:03 AM COVER MAKING MACHINE OPERATOR Alfonso Jackson M.D. LAB BLOOD ADD-ON Performing Organization Address City/[facility] Phon e Number [facility] - [address] Heparin Anti-Xa Assay (05/27/2019 6:48 PM COVER MAKING MACHINE OPERATOR) P athologist Signature Heparin 0.41 IU/mL 05/27/2019 DTL Anti-Xa, P 7:42 PM COVER MAKING MACHINE OPERATOR Comment: UFH therapeutic range: ?? 0.30-0.70 IU/mL LMWH therapeutic range: 0.50-1.00 IU/mL 0.50-1.00 IU/mL for twice daily dosing ? ? 1.00-2.00 IU/mL for once daily dosing (sample obtained 4-6 hours following sub cutaneous injection) LMWH prophylactic range:0.10-0.30 IU/mL ----ADDITIONAL INFORMATION---- Heparin Anti-Xa is used to measure hepar in concentrations in patients receiving low molecular weig ht heparin (LMWH) or unfractionated heparin (UFH). Specimen Anatomical Collection Method Collection Time Receive d Time (Source) Location / / Volume Laterality Blood (Blood, 05/27/2019 6:48 PM 05/27/19 20 7:23 Venous) COVER MAKING MACHINE OPERATOR PM COVER MAKING MACHINE OPERATOR Jennie Aguilar P.A.-C., M.S. LAB BLOOD NON ADD-ON Performing Organization Address City/State/ZIP Code Phon e Number [facility] - [address] [place], [place] [address] [facility] [place] [address] [facility] 200 [facility] (TTE) 2D ECHO DOPPLER COLOR AND CONTRAST (05/27/2019 3:55 PM COVER MAKING MACHINE OPERATOR) [facility] gist Method Time Signature Ejection Fraction 15 MC CV EIMS LV Mass Index 199 MC CV EIMS LV End-Diastolic 71 MC CV EIMS Diameter LV End-Diastolic 342 MC CV EIMS Volume LV End-Systolic 252 MC CV EIMS Volume Left ventricular 32 MC CV EIMS stroke volume index Cardiac Output 7.45 MC CV EIMS Cardiac Index 3.76 MC CV EIMS LV Interventricular 12 MC CV EIMS Septal Wall Thickness LV Posterior Wall 11 MC CV EIMS Thickness LV Relative Wall 31 MC CV EIMS Thickness TAPSE 17 MC CV EIMS Tricuspid Annular S? 0.09 MC CV EIMS TR Vmax 3.00 MC CV EIMS RA Pressure 20 MC CV EIMS RV Systolic Pressure 56 MC CV EIM S Aortic valve area 4.90 MC CV EIMS Aortic Valve 0.92 MC CV EIMS Dimensionless Index LA Volume Index 42 MC CV EIMS Anatomical Region Laterality Modality Echocardiography Specimen (Source) Anatomical Collection Method Collection Time Re ceived Time Location / / Volume Laterality 05/27/2019 1:57 PM COVER MAKING MACHINE OPERATOR Impressions 05/27/2019 3:57 PM COVER MAKING MACHINE OPERATOR Intravenous Lumason ultrasound enhancement agent was administered to enhance endocardial border definition. ??LEFT VENTRICLE: ??Severely enlarged left ventricular chamber size. ??Normal left ventricular wall thickness. ??Severe gen eralized left ventricular hypokinesis. ??Indeterminate left ventricular diastolic function grad e. ??RIGHT VENTRICLE: ??Normal right ventricular chamber size. ??Moderately reduced right ventric ular systolic function. ??Estimated right ventricular systolic pressure 56 mmHg (systolic bloo d pressure 126 mmHg). ??ATRIA: ??Moderately enlarged left atrial size. ??Left atrial volume index 42 ml/m^2. ??Right atrial size. ??CARDIAC VALVES: Trileaflet aortic valve. ??Sclerotic aor tic valve. ??Mild-moderate aortic valve regurgitation. Thickened mitral valve. ??Trivial mitral valve regurgitation. ??Pulmonary valve not well visualized. ??Normal pulmonary valve sys tolic velocity. ??Trivial pulmonary valve regurgitation. Normal tricuspid valve. ??Mild tricuspid valve regurgitation. ??OTHER ECHO FINDINGS: ??Severely enlarged inferior vena cava size with re duced inspiratory collapse (<50%). ??Ascending aorta not well visualized. ??No abdominal aortic a neurysm. ??Normal abdominal aorta Doppler flow pattern. No atrial level shunt by color flow imag ing. ??No intracardiac mass or thrombus, but the left atrial appendage cannot be visualized ad equately with transthoracic echo to exclude thrombus in this location. ??Small pericardial effus ion. For the complete report, see the [employer] Documents. Narrative 05/27/2019 3:57 PM COVER MAKING MACHINE OPERATOR For the complete report, see the [employer] Documents. Final Impressions 1. Severely enlarged left ventricular ch batool size. 2. Estimated left ventricular ejection f raction range 15 % - 20 %. 3. Severe generalized left ventricular h ypokinesis. ??Best preserved segments are basal lateral, posterior and inferior- 4. Moderately reduced right ventricular systolic function. ??Preserved at the base but hypo mid and apex. 5. Estimated right ventricular systolic pressure 56 mmHg (systolic blood pressure 126 mmHg). 6. Mild-moderate aortic valve regurgitat ion. 7. Mild tricuspid valve regurgitation. 8. Severely enlarged inferior vena cava size with reduced inspiratory collapse (<50%). 9. Small pericardial effusion. ??Mostly inferior to the RV, mild RA invagination in early systole. Procedure Note Ramana Vazquez M.D. - 05/27/2019F ormatting of this note might be different from the original. For the complete report, see the [employer] Documents. Final Impressions 1. Severely enlarged left ventricular ch batool size. 2. Estimated left ventricular ejection f raction range 15 % - 20 %. 3. Severe generalized left ventricular h ypokinesis. Best preserved segments are basal lateral, posterior and inferior- 4. Moderately reduced right ventricular systolic function. Preserved at the base but hypo mid and apex. 5. Estimated right ventricular systolic pressure 56 mmHg (systolic blood pressure 126 mmHg). 6. Mild-moderate aortic valve regurgitat ion. 7. Mild tricuspid valve regurgitation. 8. Severely enlarged inferior vena cava size with reduced inspiratory collapse (<50%). 9. Small pericardial effusion. Mostly in ferior to the RV, mild RA invagination in early systole. Findings Intravenous Lumason ultrasound enhanceme nt agent was administered to enhance endocardial border definition. LEFT VENTRICLE: Severely enl arged left ventricular chamber size. Normal left ventricular wall thickness. Severe gener alized left ventricular hypokinesis. Indeterminate left ventricular diastolic function grad e. RIGHT VENTRICLE: Normal right ventricular chamber size. Moderately reduced right ventricul ar systolic function. Estimated right ventricular systolic pressure 56 mmHg (systolic bloo d pressure 126 mmHg). ATRIA: Moderately enlarged left atrial size. Left atrial volume index 42 ml/m^2. Right atrial size. CARDIAC VALVES: Trileaflet aortic valve. Sclerotic aorti c valve. Mild-moderate aortic valve regurgitation. Thickened mitral valve. Trivial mitral v alve regurgitation. Pulmonary valve not well visualized. Normal pulmonary valve systo lic velocity. Trivial pulmonary valve regurgitation. Normal tricuspid valve. Mild tricuspid v alve regurgitation. OTHER ECHO FINDINGS: Severely enlarged inferior vena cava size with re duced inspiratory collapse (<50%). Ascending aorta not well visualized. No abdominal aortic ane urysm. Normal abdominal aorta Doppler flow pattern. No atrial level shunt by color flow imag ing. No intracardiac mass or thrombus, but the left atrial appendage cannot be visualized ad equately with transthoracic echo to exclude thrombus in this location. Small pericardial effusio n. For the complete report, see the [employer] Documents. Jennie Aguilar P.A.-C. MCareyS. CV ECHO PROCEDURES Heparin Anti-Xa Assay (05/27/2019 11:55 AM COVER MAKING MACHINE OPERATOR) athologist Signature Heparin 0.49 IU/mL 05/27/2019 DTL Anti-Xa, P 1:33 PM COVER MAKING MACHINE OPERATOR Comment: UFH therapeutic range: ?? 0.30-0.70 IU/mL LMWH therapeutic range: 0.50-1.00 IU/mL 0.50-1.00 IU/mL for twice daily dosing ? ? 1.00-2.00 IU/mL for once daily dosing (sample obtained 4-6 hours following sub cutaneous injection) LMWH prophylactic range:0.10-0.30 IU/mL ----ADDITIONAL INFORMATION---- Heparin Anti-Xa is used to measure hepar in concentrations in patients receiving low molecular weig ht heparin (LMWH) or unfractionated heparin (UFH). Specimen Anatomical Collection Method Collection Time Receive d Time (Source) Location / / Volume Laterality Blood (Blood, 05/27/2019 11:55 05/27/2019 Venous) AM COVER MAKING MACHINE OPERATOR 12:23 PM COVER MAKING MACHINE OPERATOR Marybel Liz LAB BLOOD NON ADD-ON Performing Organization Address City/State/ZIP Code Phon e Number [facility] - [address] [place], [place] [address] [place] [address] [facility] [address] Heparin Anti-Xa Assay (05/27/2019 4:51 AM COVER MAKING MACHINE OPERATOR) athologist Signature Heparin 0.19 IU/mL 05/27/2019 DTL Anti-Xa, P 5:30 AM COVER MAKING MACHINE OPERATOR Comment: UFH therapeutic range: ?? 0.30-0.70 IU/mL LMWH therapeutic range: 0.50-1.00 IU/mL 0.50-1.00 IU/mL for twice daily dosing ? ? 1.00-2.00 IU/mL for once daily dosing (sample obtained 4-6 hours following sub cutaneous injection) LMWH prophylactic range:0.10-0.30 IU/mL ----ADDITIONAL INFORMATION---- Heparin Anti-Xa is used to measure hepar in concentrations in patients receiving low molecular weig ht heparin (LMWH) or unfractionated heparin (UFH). Specimen Anatomical Collection Method Collection Time Receive d Time (Source) Location / / Volume Laterality Blood (Blood, 05/27/2019 4:51 AM 05/27/19 5:13 Venous) COVER MAKING MACHINE OPERATOR AM COVER MAKING MACHINE OPERATOR Marybel Liz LAB BLOOD NON ADD-ON Performing Organization Address City/[facility] Phon e Number [facility] - [address] [place], [place] [address] [place] [address] DTL [place] [address] (ABNORMAL) CBC without Differential (05/27/2019 4:51 AM COVER MAKING MACHINE OPERATOR) [facility] gist Method Time Signature Hemoglobin 11.6 (L) 13.2 - 05/27/2019 DTL 16.6 g/dL 5:21 AM COVER MAKING MACHINE OPERATOR Hematocrit 36.5 (L) 38.3 - 05/27/2019 DTL 48.6 % 5:21 AM COVER MAKING MACHINE OPERATOR Erythrocytes 4.03 (L) 4.35 - 05/27/2019 DTL 5.65 5:21 AM COVER MAKING MACHINE OPERATOR x10(12)/L MCV 90.6 78.2 - 05/27/2019 DTL 97.9 fL 5:21 AM COVER MAKING MACHINE OPERATOR RBC Distrib Width 14.0 11.8 - 05/27/2019 DTL 14.5 % 5:21 AM COVER MAKING MACHINE OPERATOR Platelet Count 167 135 - 317 05/27/2019 DTL x10(9)/L 5:21 AM COVER MAKING MACHINE OPERATOR Leukocytes 5.1 3.4 - 9.6 05/27/2019 DTL x10(9)/L 5:21 AM COVER MAKING MACHINE OPERATOR Specimen Anatomical Collection Method Collection Time Receive d Time (Source) Location / / Volume Laterality Blood (Blood, 05/27/2019 4:51 AM 05/27/19 5:13 Venous) COVER MAKING MACHINE OPERATOR AM COVER MAKING MACHINE OPERATOR Alfonso Jackson M.D. LAB BLOOD ADD-ON Performing Organization Address City/[facility] Phon e Number [facility] - [address] [place] [id number] 05 [facility] [place] [address] [place] [address] (ABNORMAL) Calcium, Total (05/27/2019 4:51 AM COVER MAKING MACHINE OPERATOR) athologist Signature Calcium, 8.5 (L) 8.8 - 10.2 05/27/2019 DTL Total, S mg/dL 5:50 AM COVER MAKING MACHINE OPERATOR Specimen Anatomical Collection Method Collection Time Receive d Time (Source) Location / / Volume Laterality Blood (Blood, 05/27/2019 4:51 AM 05/27/19 5:34 Venous) COVER MAKING MACHINE OPERATOR AM COVER MAKING MACHINE OPERATOR Alfonso Jackson M.D. LAB BLOOD ADD-ON Performing Organization Address City/[facility] Phon e Number [facility] - [address] [place], [place] [address] [facility] [place] [address] Laboratories-[address] (ABNORMAL) APTT (Activated Partial Thromboplastin Time) (05/26/2019 10:22 PM COVER MAKING MACHINE OPERATOR) athologist [facility] Activated 38 (H) 25 - 37 05/26/2019 [facility] Partial sec 10:39 PM COVER MAKING MACHINE OPERATOR Thrombopl Time, P Specimen Anatomical Collection Method Collection Time Receive d Time (Source) Location / / Volume Laterality Blood (Blood, 05/26/2019 10:22 05/26/2019 Venous) PM COVER MAKING MACHINE OPERATOR 10:29 PM COVER MAKING MACHINE OPERATOR Alfonso Jackson M.D. LAB BLOOD ADD-ON Performing Organization Address City/[facility] Phon e Number [facility] - [address] [place], [place] [address] [facility] [place] [address] Laboratories-[address] Lipid Panel (05/26/2019 10:22 PM COVER MAKING MACHINE OPERATOR) athologist Signature Cholesterol, 138 mg/dL 05/26/2019 DTL Total 11:17 PM COVER MAKING MACHINE OPERATOR Comment: ----REFERENCE VALUE---- Desirable: < 200 Borderline high: 200 - 239 High: > or = 240 Triglycerides 60 mg/dL 05/26/2019 11:17 PM COVER MAKING MACHINE OPERATOR DT L Comment: ----REFERENCE VALUE---- Normal: <150 Borderline high: 150-199 High: 200-499 Very high: > or =500 Cholesterol, HDL, S 52 >=40 mg/dL 05/26/2019 11:17 PM COVER MAKING MACHINE OPERATOR DTL Calculated LDL 74 mg/dL 05/26/2019 11:17 PM COVER MAKING MACHINE OPERATOR D TL Comment: ----REFERENCE VALUE---- Desirable: <100 Above Desirable: 100-129 Borderline high: 130-159 High: 160-189 Very high: > or =190 Cholesterol, Non-HDL, Calculated 86 mg/dL 020 11:17 PM COVER MAKING MACHINE OPERATOR DTL Comment: ----REFERENCE VALUE---- Desirable: <130 Above Desirable: 130-159 Borderline high: 160-189 High: 190-219 Very high: > or =220 Specimen Anatomical Collection Method Collection Time Receive d Time (Source) Location / / Volume Laterality Blood (Blood, 05/26/2019 10:22 05/26/2019 Venous) PM COVER MAKING MACHINE OPERATOR 10:39 PM COVER MAKING MACHINE OPERATOR Alfonso Jackson M.D. LAB BLOOD ADD-ON Performing Organization Address City/[facility] Phon e Number [facility] - [address] (ABNORMAL) S-TSH (Thyroid-Stimulating Hormone - Sensitive) (05/26/2019 10:22 PM COVER MAKING MACHINE OPERATOR) athologist Signature TSH, Sensitive 7.3 (H) 0.3 - 4.2 05/26/2019 DTL mIU/L 11:17 PM COVER MAKING MACHINE OPERATOR Specimen Anatomical Collection Method Collection Time Receive d Time (Source) Location / / Volume Laterality Blood (Blood, 05/26/2019 10:22 05/26/2019 Venous) PM COVER MAKING MACHINE OPERATOR 10:39 PM COVER MAKING MACHINE OPERATOR Alfonso Jackson M.D. LAB BLOOD ADD-ON Performing Organization Address City/State/ZIP Code Phon e Number [facility] - [address] [place], [place] [address] [place] [id number] [place] [address] [facility] (ABNORMAL) NT-Pro B-Type Natriuretic Peptide (BNP) (05/26/2019 10:22 PM COVER MAKING MACHINE OPERATOR) P athologist Signature NT-Pro BNP 7127 (H) <=138 pg/mL 05/26/2019 DTL 11:17 PM COVER MAKING MACHINE OPERATOR Comment: NT-proBNP values less than 300 pg/mL hav e a 99% negative predictive value for excluding acute congestive heart dustin cortes. A cutoff of 1200 pg/mL for patients [...] Location / / Volume Laterality Blood (Blood, 05/26/2019 10:22 05/26/2019 Venous) PM COVER MAKING MACHINE OPERATOR 10:39 PM COVER MAKING MACHINE OPERATOR Alfonso Jackson M.D. LAB BLOOD ADD-ON Performing Organization Address City/[facility] Phon e Number [facility] - [address] Phosphorus Inorganic (05/26/2019 10:22 PM COVER MAKING MACHINE OPERATOR) P athologist Signature Phosphorus 3.5 2.5 - 4.5 05/26/2019 DTL (Inorganic), S mg/dL 11:17 PM COVER MAKING MACHINE OPERATOR Specimen Anatomical Collection Method Collection Time Receive d Time (Source) Location / / Volume Laterality Blood (Blood, 05/26/2019 10:22 05/26/2019 Venous) PM COVER MAKING MACHINE OPERATOR 10:39 PM COVER MAKING MACHINE OPERATOR Alfonso Jackson M.D. LAB BLOOD ADD-ON Performing Organization Address City/[facility] Phon e Number [facility] - [address] (ABNORMAL) CBC with Differential, Blood (05/26/2019 10:22 PM COVER MAKING MACHINE OPERATOR) Patholo gist Method Time Signature Hemoglobin 12.0 (L) 13.2 - 05/26/2019 STMA 16.6 g/dL 10:31 PM COVER MAKING MACHINE OPERATOR Hematocrit 37.1 (L) 38.3 - 05/26/2019 STMA 48.6 % 10:31 PM COVER MAKING MACHINE OPERATOR Erythrocytes 4.17 (L) 4.35 - 05/26/2019 STMA 5.65 10:31 PM COVER MAKING MACHINE OPERATOR x10(12)/L MCV 89.0 78.2 - 05/26/2019 STMA 97.9 fL 10:31 PM COVER MAKING MACHINE OPERATOR RBC Distrib Width 13.9 11.8 - 05/26/2019 STMA 14.5 % 10:31 PM COVER MAKING MACHINE OPERATOR Platelet Count 187 135 - 317 05/26/2019 STMA x10(9)/L 10:31 PM COVER MAKING MACHINE OPERATOR Leukocytes 5.2 3.4 - 9.6 05/26/2019 STMA x10(9)/L 10:31 PM COVER MAKING MACHINE OPERATOR Neutrophils 3.04 1.56 - 05/26/2019 STMA 6.45 10:31 PM COVER MAKING MACHINE OPERATOR x10(9)/L Lymphocytes 1.51 0.95 - 05/26/2019 STMA 3.07 10:31 PM COVER MAKING MACHINE OPERATOR x10(9)/L Monocytes 0.47 0.26 - 05/26/2019 STMA 0.81 10:31 PM COVER MAKING MACHINE OPERATOR x10(9)/L Eosinophils 0.13 0.03 - 05/26/2019 STMA 0.48 10:31 PM COVER MAKING MACHINE OPERATOR x10(9)/L Basophils 0.04 0.01 - 05/26/2019 STMA 0.08 10:31 PM COVER MAKING MACHINE OPERATOR x10(9)/L Specimen Anatomical Collection Method Collection Time Receive d Time (Source) Location / / Volume Laterality Blood (Blood, 05/26/2019 10:22 05/26/2019 Venous) PM COVER MAKING MACHINE OPERATOR 10:29 PM COVER MAKING MACHINE OPERATOR Alfonso Jackson M.D. LAB BLOOD ADD-ON Performing Organization Address City/[facility] Phon e Number [facility] - [address] [place] [address] Magnesium (05/26/2019 10:22 PM COVER MAKING MACHINE OPERATOR) P athologist Signature Magnesium, S 2.2 1.7 - 2.3 05/26/2019 DTL mg/dL 11:17 PM COVER MAKING MACHINE OPERATOR Specimen Anatomical Collection Method Collection Time Receive d Time (Source) Location / / Volume Laterality Blood (Blood, 05/26/2019 10:22 05/26/2019 Venous) PM COVER MAKING MACHINE OPERATOR 10:39 PM COVER MAKING MACHINE OPERATOR Alfonso Jackson M.D. LAB BLOOD ADD-ON Performing Organization Address City/[facility] Phon e Number [facility] - [address] D[address] Basic Metabolic Panel (05/26/2019 10:22 PM COVER MAKING MACHINE OPERATOR) athologist Signature Potassium, P 4.2 3.6 - 5.2 05/26/2019 STMA mmol/L 10:46 PM COVER MAKING MACHINE OPERATOR Sodium, P 138 135 - 145 05/26/2019 STMA mmol/L 10:46 PM COVER MAKING MACHINE OPERATOR Chloride, P 103 98 - 107 05/26/2019 STMA mmol/L 10:46 PM COVER MAKING MACHINE OPERATOR Bicarbonate, P 24 22 - 29 05/26/2019 STMA mmol/L 10:46 PM COVER MAKING MACHINE OPERATOR Anion Gap, P 11 7 - 15 05/26/2019 STMA 10:46 PM COVER MAKING MACHINE OPERATOR BUN (Blood Urea 17 8 - 24 05/26/2019 STMA Nitrogen), P mg/dL 10:46 PM COVER MAKING MACHINE OPERATOR Creatinine 0.99 0.74 - 05/26/2019 STMA 1.35 mg/dL 10:46 PM COVER MAKING MACHINE OPERATOR eGFR-Black/Afric 81 >=60 05/26/2019 STMA an [place]and[place] mL/min/BSA 10:46 PM COVER MAKING MACHINE OPERATOR Comment: ----ADDITIONAL INFORMATION---- Estimated GFR calculated using the 2009 CKD_EPI creatinine equation. eGFR Non-Black/ 70 >=60 mL/min/BSA 05/26/2019 10:46 PM COVER MAKING MACHINE OPERATOR STMA Comment: ----ADDITIONAL INFORMATION---- Estimated GFR calculated using the 2009 CKD_EPI creatinine equation. Calcium, Total, P 8.8 8.8 - 10.2 mg/dL 05/26/2019 10:4 6 PM COVER MAKING MACHINE OPERATOR STMA Glucose, P 116 70 - 140 mg/dL 05/26/2019 10:46 PM COVER MAKING MACHINE OPERATOR STMA Specimen Anatomical Collection Method Collection Time Receive d Time (Source) Location / / Volume Laterality Blood (Blood, 05/26/2019 10:22 05/26/2019 Venous) PM COVER MAKING MACHINE OPERATOR 10:29 PM COVER MAKING MACHINE OPERATOR Alfonso Jackson M.D. LAB BLOOD ADD-ON Performing Organization Address City/State/ZIP Code Phon e Number [address] [address] [place] [address] [facility] 200 [facility] ECG 12 Lead (05/26/2019 9:14 PM COVER MAKING MACHINE OPERATOR) athologist Signature Ventricular Rate 124 BPM MUSE ECG/Min [place] Interval 136 ms MUSE QRSD Interval 150 ms MUSE QT Interval 412 ms MUSE QTC Interval 591 ms MUSE R [place] 48 degrees MUSE T Wave [place] -179 degrees MUSE Specimen Anatomical Collection Method Collection Time Receive d Time (Source) Location / / Volume Laterality 05/26/2019 9:14 PM 0 9:23 COVER MAKING MACHINE OPERATOR PM COVER MAKING MACHINE OPERATOR Impressions MUSE - 05/26/2019 9:23 PM COVER MAKING MACHINE OPERATOR Sinus tachycardia Left bundle branch block T wave abnormality, consider inferolater al ischemia When compared with ECG of 24-APR-2019 15 :01, Significant changes have occurred Reviewed by LUBNA Rudd Narrative This result has an attachment that is no t available. Procedure Note Espinoza Chandler M.D. - 05/26/2019Formatti ng of this note might be different from the original. IMPRESSION: Sinus tachycardia Left bundle branch block T wave abnormality, consider inferolater al ischemia When compared with ECG of 24-APR-2019 15 :01, Significant changes have occurred Reviewed by LUBNA Rudd Alfonso Jackson M.D. ECG ORDERABLES Performing Organization Address City/State/ZIP Code Phon e Number MUSE MUSE NA documented in this encounter Visit Diagnoses Diagnosis Flutter Atrial (HCC) - Primary Atrial Fibrillation Unspecified Cardiomyopathy Ischemic Cardiomyopathy Dilated (HCC) Apnea Sleep Obstructive Hypothyroidism Hyperlipidemia Mixed Meningioma Brain (HCC) Gastroesophageal Reflux Disease NOS Acute Systolic (Congestive) Heart Failur e (HCC) Cardiomyopathy Ischemic documented in this encounter Admitting Diagnoses Diagnosis Cardiomyopathy Ischemic documented in this encounter Administered Medications Inactive Administered Medications - up to 3 most recent administrations Medication Order MAR Action Action Date Dose Rate Site apixaban tablet 5 mg (ELIQUIS) Given 05/29/2019 8:24 AM COVER MAKING MACHINE OPERATOR 5 mg 5 mg, oral, 2 times daily, First dose on Mon05/28/19 at 2100, Drug Monitoring Program: Pharmacist to adjust medication dosing based on indication and drug clearance factors. Given 05/28/2019 8:36 PM COVER MAKING MACHINE OPERATOR 5 mg aspirin chewable tablet 324 mg Given 05/27/2019 4:20 PM COVER MAKING MACHINE OPERATOR 324 mg 324 mg, oral, Once, On Mon05/27/19 at 1630, For 1 dose, Preprocedure (CV) aspirin chewable tablet 324 mg Given 05/28/2019 2:31 PM COVER MAKING MACHINE OPERATOR 324 mg 324 mg, oral, Once, On Mon05/28/19 at 1445, For 1 dose, Preprocedure (CV) atorvastatin tablet 40 mg (LIPITOR) Given 05/29/2019 8:23 AM COVER MAKING MACHINE OPERATOR 40 mg 40 mg, oral, Daily, First dose on Mon05/27/19 at 0900 Given 05/28/2019 9:08 AM COVER MAKING MACHINE OPERATOR 40 mg Given 05/27/2019 9:59 AM COVER MAKING MACHINE OPERATOR 40 mg docusate sodium capsule 100 mg (COLACE) 100 mg, oral, 2 times daily PRN, constip ation, Starting on Mon05/26/19 at 2112, Do NOT crush or chew. famotidine tablet 40 mg (PEPCID) Given 05/28/2019 8:36 PM COVER MAKING MACHINE OPERATOR 40 mg 40 mg, oral, Daily at bedtime, First dose on Mon05/27/19 at 2100, For 347 days, Drug Monitoring Program: Pharmacist to adjust medication dosing based on indication and drug clearance factors. Given 05/27/2019 8:42 PM COVER MAKING MACHINE OPERATOR 40 mg furosemide injection 20 mg (LASIX) Given 05/27/2019 6:51 PM COVER MAKING MACHINE OPERATOR 20 mg 20 mg, intravenous, Once, On Mon05/27/19 at 1815, For 1 dose, Adults: Doses less than 120 mg: IV push over 20 mg/minute. Doses 120 mg or greater: IVPB at 4 mg/minute. Peds/Neonates: Doses less than 120 mg over 0.5 mg/kg/minute. Doses 120 mg or greater: IVPB at 4 mg/minute. furosemide injection 20 mg (LASIX) Given 05/28/2019 11:39 AM COVER MAKING MACHINE OPERATOR 20 mg 20 mg, intravenous, Once, On Mon05/28/19 at 0915, For 1 dose, Adults: Doses less than 120 mg: IV push over 20 mg/minute. Doses 120 mg or greater: IVPB at 4 mg/minute. Peds/Neonates: Doses less than 120 mg over 0.5 mg/kg/minute. Doses 120 mg or greater: IVPB at 4 mg/minute. furosemide injection 20 mg (LASIX) Given 05/29/2019 6:45 AM COVER MAKING MACHINE OPERATOR 20 mg 20 mg, intravenous, Once, On Mon05/29/19 at 0600, For 1 dose, Adults: Doses less than 120 mg: IV push over 20 mg/minute. Doses 120 mg or greater: IVPB at 4 mg/minute. Peds/Neonates: Doses less than 120 mg over 0.5 mg/kg/minute. Doses 120 mg or greater: IVPB at 4 mg/minute. heparin (porcine) 1,000 unit/mL Given 05/27/2019 6:08 AM COVER MAKING MACHINE OPERATOR 2,4 00 Units injection 2,400 Units 2,400 Units (rounded from 2,424 Units = 30 Units/kg ? 80.8 kg Dosing weight), intravenous, As needed, antiXa 0.1-0.19, Starting on [place] 05/26/19 at 2205, Intensity type: Moderate, Anti-Xa < 0.1: Loading Dose (Units/kg): 60, Anti-Xa 0.1-0.19: Loading Dose (Units/kg): 30, Anti-Xa > 0.19: Loading Dose (Units/kg): No Loading Dose heparin (porcine) 100 Rate/Dose Verify 05/28/2019 3:00 13.985 Units /kg/hr 11.3 mL/hr Units/mL in D5W 250 AM COVER MAKING MACHINE OPERATOR mL infusion 0-40 Units/kg/hr ? 80.8 kg Dosing weight (0-32.32 mL/hr), intravenous, Continuous, Starting on [place] 05/26/19 at 2215, Premix ba,000 Units in 250 mL, Intensity type: Moderate, Starting Dose (units/kg/hr): 12, Anti-Xa < 0.1: Adjust Dose (Units/kg/hr) by: 4, Anti-Xa < 0.1: Loading Dose (Units/kg): 60, Anti-Xa < 0.1: Repeat anti-Xa: 6 hours, Anti-Xa 0.1-0.19: Adjust Dose (Units/kg/hr) by: 2, Anti-Xa 0.1-0.19: Loading Dose (Units/kg): 30, Anti-Xa 0.1-0.19: Repeat anti-Xa: 6 hours, Anti-Xa 0.2-0.5: Adjust Dose (Units/kg/hr) by: 0, Anti-Xa 0.2-0.5: Repeat anti-Xa: 6 hours. If two consecutive therapeutic result, re-check next AM., Anti-Xa > 0.19: Loading Dose (Units/kg): No Loading Dose, Anti-Xa 0.51-0.6: Adjust Dose (Units/kg/hr) by: -1, Anti-Xa 0.51-0.6: Repeat anti-Xa: 6 hours, Anti-Xa 0.61-0.9: Hold Infusion: Stop infusion for 1 hour, Anti-Xa 0.61-0.9: Adjust Dose (Units/kg/hr) by: -2, Anti-Xa 0.61-0.9: Repeat anti-Xa: 6 hours after Heparin resumed, Anti-Xa >= 0.91: Hold Infusion: Stop infusion for 2 hours, Anti-Xa >= 0.91: Adjust Dose (Units/kg/hr) by: -4, Anti-Xa >= 0.91: Repeat anti-Xa: 6 hours after Heparin resumed Rate/Dose Verify 05/27/2019 11:43 PM COVER MAKING MACHINE OPERATOR 13.985 Units/kg/hr 11.3 mL /hr Rate/Dose Verify 05/27/2019 11:00 PM COVER MAKING MACHINE OPERATOR 13.985 Units/kg/hr 11.3 mL /hr levothyroxine tablet 100 mcg (SYNTHROID, Given 05/29/2019 6:45 A M COVER MAKING MACHINE OPERATOR 100 mcg LEVOTHROID) 100 mcg, oral, Daily before breakfast, First dose on Mon05/27/19 at 0700 Given 05/28/2019 9:08 AM COVER MAKING MACHINE OPERATOR 100 mcg Given 05/27/2019 6:08 AM COVER MAKING MACHINE OPERATOR 100 mcg lisinopriL tablet 2.5 mg (PRINIVIL,ZESTR IL) Given 05/29/2019 8:23 AM COVER MAKING MACHINE OPERATOR 2.5 mg 2.5 mg, oral, Daily, First dose on Mon05/28/19 at 0915 Given 05/28/2019 11:38 AM COVER MAKING MACHINE OPERATOR 2.5 mg loperamide liquid 2 mg (IMODIUM A-D) Given 05/27/2019 9:32 PM COVER MAKING MACHINE OPERATOR 2 mg 2 mg, oral, 3 times daily PRN, diarrhea, Starting on Mon05/27/19 at 0425 loratadine tablet 10 mg (CLARITIN) Given 05/29/2019 8:24 AM COVER MAKING MACHINE OPERATOR 10 mg 10 mg, oral, Daily, First dose on Mon05/27/19 at 0900 Given 05/28/2019 9:08 AM COVER MAKING MACHINE OPERATOR 10 mg Given 05/27/2019 9:59 AM COVER MAKING MACHINE OPERATOR 10 mg melatonin tablet 3 mg Given 05/27/2019 10:49 PM COVER MAKING MACHINE OPERATOR 3 mg 3 mg, oral, Daily at bedtime, First dose on 05/26/19 at 2145 Given 05/26/2019 10:37 PM COVER MAKING MACHINE OPERATOR 3 mg melatonin tablet 6 mg Given 05/28/2019 8:36 PM COVER MAKING MACHINE OPERATOR 6 mg 6 mg, oral, Daily at bedtime, First dose (after last modification) on Mon05/28/19 at 2100 metoprolol succinate 24 hr tablet 50 mg (TOPROL-XL) 50 mg, oral, Daily, First dose on 08/13 at 0900, Do NOT crush or chew. Tablet may be split on score if needed. metoprolol tartrate tablet 25 mg (LOPRES SOR) Given 05/29/2019 8:24 AM COVER MAKING MACHINE OPERATOR 25 mg 25 mg, oral, 2 times daily, First dose on 05/26/19 at 2215, For 7 doses, HOLD for SBP < 100 mmHg or HR < 60 BPM Given 05/28/2019 8:36 PM COVER MAKING MACHINE OPERATOR 25 mg Given 05/28/2019 9:08 AM COVER MAKING MACHINE OPERATOR [address] tablet 40 mg (PROTONIX) Given 05/29/2019 8:24 AM COVER MAKING MACHINE OPERATOR 40 mg 40 mg, oral, 2 times daily, First dose on Mon05/27/19 at 0900, Swallow whole. Do NOT crush, chew, or split tablet. Given 05/28/2019 8:36 PM COVER MAKING MACHINE OPERATOR 40 mg Given 05/28/2019 9:09 AM COVER MAKING MACHINE OPERATOR 40 mg potassium chloride ER tablet 40 mEq Given 05/29/2019 3:00 PM COVER MAKING MACHINE OPERATOR 40 mEq (KLORCON/K-TAB) 40 mEq, oral, Once, On Mon05/29/19 at 1430, For 1 dose, Swallow whole. Do NOT crush, chew, or split tablet. pravastatin tablet 40 mg (PRAVACHOL) Given 05/26/2019 10:37 PM COVER MAKING MACHINE OPERATOR 40 mg 40 mg, oral, Daily at bedtime, First dose on 05/26/19 at 2145, pravastatin 40 mg oral daily was interchanged for simvastatin 20 mg oral daily sodium chloride 0.9 % injection 10 mL 10 mL, intravenous, As needed, line care, Starting on 05/26/19 at 2112, Peripheral Intravenous Catheter and Rapid Infusion Cat heter, prior to blood sampling, post blood transfusion or post blood samplin g sodium chloride 0.9 % injection 3 mL 3 mL, intravenous, As needed, line care, Starting on Mon05/26/19 at 2112, Prior to and following infusion and between multi ple consecutive infusions: sodium chloride 0.9 % injection sodium chloride 0.9 % injection 3 mL Given 05/29/2019 8:30 AM COVER MAKING MACHINE OPERATOR 3 mL 3 mL, intravenous, Every 12 hours scheduled, First dose on Mon05/27/19 at 0900, Peripheral Intravenous Catheter and Rapid Infusion Catheter, when no infusion to maintain patency Given 05/28/2019 8:30 PM COVER MAKING MACHINE OPERATOR 3 mL Given 05/28/2019 9:10 AM COVER MAKING MACHINE OPERATOR 3 mL sucralfate suspension 1 g (CARAFATE) Given 05/29/2019 8:24 AM COVER MAKING MACHINE OPERATOR 1 g 1 g, oral, 3 times daily after meals, First dose on Mon05/27/19 at 0900 Given 05/28/2019 8:01 PM COVER MAKING MACHINE OPERATOR 1 g Given 05/27/2019 7:15 PM COVER MAKING MACHINE OPERATOR 1 g sulfur hexafluoride microspheres injection Given 05/27/2019 3:47 PM COVER MAKING MACHINE OPERATOR 2 mL (LUMASON) intravenous, As needed, contrast, Starting on Mon05/27/19 at 1529, See protocol. Reconstitute each 25 mg vial with 5 mL NS. tamsulosin 24 hr capsule 0.4 mg (FLOMAX) Given 05/28/2019 8:36 PM COVER MAKING MACHINE OPERATOR 0.4 mg 0.4 mg, oral, Daily at bedtime, First dose on Mon05/26/19 at 2145, Swallow whole. Do NOT crush, chew or open capsule. Given 05/27/2019 8:42 PM COVER MAKING MACHINE OPERATOR 0.4 mg Given 05/26/2019 10:37 PM COVER MAKING MACHINE OPERATOR 0.4 mg venlafaxine XR 24 hr capsule 150 mg Given 05/29/2019 8:24 AM COVER MAKING MACHINE OPERATOR 150 mg (EFFEXOR-XR) 150 mg, oral, Daily with breakfast, First dose (after last modification) on Mon05/28/19 at 0800, Swallow whole. Do NOT crush, chew or open capsule. Given 05/28/2019 9:08 AM COVER MAKING MACHINE OPERATOR 150 mg venlafaxine XR 24 hr capsule 187.5 mg Given 05/27/2019 9:[address] 187.5 mg (EFFEXOR-XR) 187.5 mg, oral, Daily with breakfast, First dose on Mon05/27/19 at 0800, Swallow whole. Do NOT crush, chew or open capsule. vit C,G-Zd-qkwgq-lutein-zeaxan per capsule Given 05/28 8:24 AM COVER MAKING MACHINE OPERATOR 1 capsule 1 capsule (AREDS 2) 1 capsule, oral, Daily, First dose on Mon05/27/19 at 0900 Given 05/28/2019 9:08 AM COVER MAKING MACHINE OPERATOR 1 capsule Given 05/27/2019 9:59 AM COVER MAKING MACHINE OPERATOR 1 capsule documented in this encounter Active and Recently Administered Medications Times are shown in COVER MAKING MACHINE OPERATOR. Scheduled Medication Order 05/27/2019 05/28/2019 05/29/2019 apixaban tablet 5 mg (ELIQUIS) 2035 (Given - Pro vider: Hammad Zambrano R.N.) 0824 (Given - Provider: Gaudencio Jenkins RTanisha) 5 mg, oral, 2 times daily, First dose on Mon05/28/19 at 2100, Drug Monitoring Program: Pharmacist to adjust medication dosing based on indication and drug clearance factors. aspirin chewable tablet 324 mg (COMPLETED) 1620 (Given - Provider: Hernandez Gray RTanisha, CCRN) 324 mg, oral, Once, Mon05/27/19 at 1630, For 1 dose, Preprocedure (CV) aspirin chewable tablet 324 mg (COMPLETED) 1431 (Given - Provider: Mavis Sage RCareyNCarey) 324 mg, oral, Once, Mon05/28/19 at 1445, For 1 dose, Preprocedure (CV) atorvastatin tablet 40 mg (LIPITOR) 0959 (Given - Prov ider: Gaudencio Jenkins RIsidra.)1606 (MAY Hold - Provider: Transfer Provider, Automatic - Reason: Patient not available)1825 (MAY Unhold - Provider: Transfer Provider, Automatic) 0908 (Given - Provider: Yael Prather RCareyNCarey)1415 (MAY Hold - Provider: Transfer Provider, Automatic - Reason: Patient not available)1657 (MAY Unhold - Provider: Transfer Provider, Automatic) 0823 (Given - Provider: Gaudencio arellano R.NCarey) 40 mg, oral, Daily, First dose on Mon05/27/19 at 0900 famotidine tablet 40 mg (PEPCID) 1606 (MAY Hold - Prov ider: Transfer Provider, Automatic - Reason: Patient not available)182 (MAY Unhold - Provider: Transfer Provider, Automatic)2041 (Given - Provider: Carla Romero RTanisha) 1415 (MAY Hold - Provider: Transfer Provider, Automatic - Reason: Patient not available)165 (MAY Unhold - Provider: Transfer Provider, Automatic)2035 (Given - Provider: Hammad Zambrano R.N.) 40 mg, oral, Daily at bedtime, First dos e on Mon05/27/19 at 2100, For 347 days, Drug Monitoring Program: Pharmacist to adjust medication dosing based on indication and drug clearance factors. furosemide injection 20 mg (LASIX) (COMPLETED) 1850 (G iven - Provider: Gaudencio Jenkins RTanisha) 20 mg, intravenous, Once, Mon05/27/19 at 1815, For 1 dose, Adults: Doses less than 120 mg: IV push over 20 mg/minute. Doses 120 mg or greater: IVPB at 4 mg/minute. Peds/Neonates: Doses less than 120 mg o kartik 0.5 mg/kg/minute. Doses 120 mg or greater: IVPB at 4 mg/zora te. furosemide injection 20 mg (LASIX) (COMPLETED) 113 (Given - Provider: Yael Prather RTanisha) 20 mg, intravenous, Once, Mon05/28/19 at 0915, For 1 dose, Adults: Doses less than 120 mg: IV push over 20 mg/minute. Doses 120 mg or greater: IVPB at 4 mg/minute. Peds/Neonates: Doses less than 120 mg o kartik 0.5 mg/kg/minute. Doses 120 mg or greater: IVPB at 4 mg/zora te. furosemide injection 20 mg (LASIX) (COMPLETED) 644 (Given - Provider: Hammad Zambrano RCareyNCarey) 20 mg, intravenous, Once, Mon05/29/19 at 0600, For 1 dose, Adults: Doses less than 120 mg: IV push over 20 mg/minute. Doses 120 mg or greater: IVPB at 4 mg/minute. Peds/Neonates: Doses less than 120 mg o kartik 0.5 mg/kg/minute. Doses 120 mg or greater: IVPB at 4 mg/zora te. levothyroxine tablet 100 mcg (SYNTHROID, LEVOTHROID) 0 608 (Given - Provider: Donna Horta R.N.)1606 ([facility] Hold - Provider: Transfer Provider, Automatic - Reason: Patient not available)1825 ([facility] Unhold - Provider: Transfer Provider, Automatic) 0908 (Given - Provider: Yael paris, R.N.)1415 ([facility] Hold - Provider: Transfer Provider, Automatic - Reason: Patient not available)1657 ([facility] Unhold - Provider: Transfer Provider, Automatic) 0645 (Given - Provider: Hammad Zambrano R.N.) 100 mcg, oral, Daily before breakfast, First dose on Mon05/27/19 at 0700 lisinopriL tablet 2.5 mg (PRINIVIL,ZESTRIL) 1138 (Given - Provider: Yael Prather R.N.)1415 ([facility] Hold - Provider: Transfer Provider, Automatic - Reason: Patient not available)1657 ([facility] Unhold - Provider: Transfer Provider, Automatic) 0823 (Given - Provider: Gaudencio arellano R.NCarey) 2.5 mg, oral, Daily, First dose on Mon05/28/19 at 0915 loratadine tablet 10 mg (CLARITIN) 0959 (Given - Provi bakari: Gaudencio Jenkins RCareyNCarey)1606 ([facility] Hold - Provider: Transfer Provider, Automatic - Reason: Patient not available)1825 ([facility] Unhold - Provider: Transfer Provider, Automatic) 0908 (Given - Provider: Yael Prather R.N.)1415 ([facility] Hold - Provider: Transfer Provider, Automatic - Reason: Patient not available)1657 ([facility] Unhold - Provider: Transfer Provider, Automatic) 0824 (Given - Provider: Gaudencio arellano R.NCarey) 10 mg, oral, Daily, First dose on Mon05/27/19 at 0900 melatonin tablet 3 mg (CANCELED) 1606 ([facility] Hold - Prov ider: Transfer Provider, Automatic - Reason: Patient not available)1825 ([facility] Unhold - Provider: Transfer Provider, Automatic)2249 (Given - Provider: Carla Romero RCareyNCarey - Comment: Pt refused med earlier) 1415 ([facility] Hold - Provider: Transfer Prov ider, Automatic - Reason: Patient not available)1657 ([facility] Unhold - Provider: Transfer Provider, Automatic) 3 mg, oral, Daily at bedtime, First dose on 05/26/19 at 2145 melatonin tablet 6 mg 2035 (Given - Provider: Irvin Zambrano RTanisha) 6 mg, oral, Daily at bedtime, First dose (after last modification) on 05/28/19 at 2100 metoprolol succinate 24 hr tablet 50 mg (TOPROL-XL) 50 mg, oral, Daily, First dose on Loly 05/30/19 at 0900, Do NOT crush or chew. Tablet may be split on score if needed. metoprolol tartrate tablet 25 mg (LOPRESSOR) 0959 (Giv en - Provider: Gaudencio Jenkins R.N.)160 ([facility] Hold - Provider: Transfer Provider, Automatic - Reason: Patient not available)1824 ([facility] Unhold - Provider: Transfer Provider, Automatic)2041 (Given - Provider: Carla Romero R.N.) 0908 (Given - Provider: Yael Prather RTanisha)141 ([facility] Hold - Provider: Transfer Provider, Automatic - Reason: Patient not available)1656 ([facility] Unhold - Provider: Transfer Provider, Automatic)2035 (Given - Provider: Hammad Zambrano R.N.) 0824 (Given - Provider: Gaudencio Jenkins RTanisha) 25 mg, oral, 2 times daily, First dose o n 05/26/19 at 2215, For 7 doses, HOLD for SBP < 100 mmHg or HR < [address] tablet 40 mg (PROTONIX) 0959 (Given - Provider: Gaudencio Jenkins R.N.)1606 ([facility] Hold - Provider: Transfer Provider, Automatic - Reason: Patient not available)182 ([facility] Unhold - Provider: Transfer Provider, Automatic)2041 (Given - Provider: Carla Romero R.N.) 0909 (Given - Provider: Yael Prather R.N.)1415 ([facility] Hold - Provider: Transfer Provider, Automatic - Reason: Patient not available)1656 ([facility] Unhold - Provider: Transfer Provider, Automatic)2035 (Given - Provider: Hammad Zambrano R.N.) 0824 (Given - Provider: Gaudencio Jenkins RTanisha) 40 mg, oral, 2 times daily, First dose o n Mon05/27/19 at 0900, Swallow whole. Do NOT crush, chew, or split tablet. potassium chloride ER tablet 40 mEq (KLORCON/K-TAB) (COMPLETED) 1500 (Given - Provider: Gaudencio Jenkins R.N.) 40 mEq, oral, Once, Mon05/29/19 at 1430, For 1 dose, Swallow whole. Do NOT crush, chew, or split tablet. sodium chloride 0.9 % injection 3 mL 1001 (Given - Pro vider: Gaudencio Jenkins R.N.)1606 ([facility] Hold - Provider: Transfer Provider, Automatic - Reason: Patient not available)1825 ([facility] Unhold - Provider: Transfer Provider, Automatic) 0910 (Given - Provider: Yael Prather RCareyNCarey)1415 ([facility] Hold - Provider: Transfer Provider, Automatic - Reason: Patient not available)1657 ([facility] Unhold - Provider: Transfer Provider, Automatic)2030 (Given - Provider: Hammad Zambrano R.N.) 0830 (Given - Provider: Gaudencio Jenkins RCareyNCarey) 3 mL, intravenous, Every 12 hours schedu led, First dose on Mon05/27/19 at 0900, Peripheral Intravenous Catheter and Rapid Infusion Catheter, when no infusion to maintain patency 2042 (Not Given - Provider: Carla mckinley R.NCarey - Reason: Order parameters not met - Comment: PIV currently infusing with Heparin) sucralfate suspension 1 g (CARAFATE) 1003 (Not Given - Provider: Gaudencio Jenkins RCareyN. - Reason: Patient/family refused)1606 ([facility] Hold - Provider: Transfer Provider, Automatic - Reason: Patient not available)1800 (Dose Auto Held - Provider: Transfer Provider, Automatic) 0910 (Not Given - Provider: Yael Prather R.N. - Reason: Patient/family refused - Comment: npo states only takes with foods)1405 (Not Given - Provider: Yael Prather RCareyN. - Reason: Patient/family refused - Comment: pt npo and doesn't want) 0824 (Given - Provider: Gaudencio Jenkins R.N.)1300 (Not Given - Provider: Gaudencio Jenkins R.N. - Reason: Other) 1 g, oral, 3 times daily after meals, First dose on 05/27/19 at 0900 1825 ([facility] Unhold - Provider: Transfer Provider, Automatic)1915 (Given - Provider: Carla Romero R.N. - Comment: Pt finished eating now) 1415 ([facility] Hold - Provider: Transfer Provider, Automatic - Reason: Patient not available)165 ([facility] Unhold - Provider: Transfer Provider, Automatic)2000 (Given - Provider: Hammad Zambrano RCareyNCarey) tamsulosin 24 hr capsule 0.4 mg (FLOMAX) 1606 (MAY Hol d - Provider: Transfer Provider, Automatic - Reason: Patient not available)182 ([facility] Unhold - Provider: Transfer Provider, Automatic)2041 (Given - Provider: Carla Romero R.N.) 1415 ([facility] Hold - Provider: Transfer Provider, Automatic - Reason: Patient not available)165 ([facility] Unhold - Provider: Transfer Provider, Automatic)2035 (Given - Provider: Hammad Zambrano RCareyNCarey) 0.4 mg, oral, Daily at bedtime, First do se on Mon05/26/19 at 2145, Swallow whole. Do NOT crush, chew or open capsule. venlafaxine XR 24 hr capsule 150 mg (EFFEXOR-XR) 0908 (Given - Provider: Yael Prather RCareyNCarey)1415 ([facility] Hold - Provider: Transfer Provider, Automatic - Reason: Patient not available)1657 ([facility] Unhold - Provider: Transfer Provider, Automatic) 0824 (Given - Provider: Gaudencio arellano R.NCarey) 150 mg, oral, Daily with breakfast, Firs t dose (after last modification) on Mon05/28/19 at 0800, Swallow whole. Do NOT crush, chew or open capsule. venlafaxine XR 24 hr capsule 187.5 mg (EFFEXOR-XR) (CA NCELED) 0959 (Given - Provider: Gaudencio Jenkins RTanisha)1606 ([facility] Hold - Provider: Transfer Provider, Automatic - Reason: Patient not available)1825 ([facility] Unhold - Provider: Transfer Provider, Automatic) 187.5 mg, oral, Daily with breakfast, Fi rst dose on Mon05/27/19 at 0800, Swallow whole. Do NOT crush, chew or open capsule. vit C,K-Ek-rrmwq-lutein-zeaxan per capsule 1 capsule ( AREDS 2) 0959 (Given - Provider: Gaudencio Jenkins RCareyNCarey)1606 ([facility] Hold - Provider: Transfer Provider, Automatic - Reason: Patient not available)1825 ([facility] Unhold - Provider: Transfer Provider, Automatic) 0908 (Given - Provider: Yael paris R.NCarey)1415 ([facility] Hold - Provider: Transfer Provider, Automatic - Reason: Patient not available)1657 ([facility] Unhold - Provider: Transfer Provider, Automatic) 0824 (Given - Provider: Gaudencio Jenkins RCareyNCarey) 1 capsule, oral, Daily, First dose on Mon05/27/19 at 0900 Continuous Medication Order 05/27/2019 05/28/2019 05/29/2019 heparin (porcine) 100 Units/mL in D5W 250 mL infusion (CANCELED) 0602 (Rate/Dose Change - Provider: Donna Horta R.N.)2132 (New Bag - Provider: Carla Romero R.N.)2300 (Rate/Dose Verify - Provider: Carla Romero R.N.)2343 (Rate/Dose Verify - Provider: Krysta Gregg R.N.) 0300 (Rate/Dose Verify - Provider: Krysta Gregg R.N.) 0-40 Units/kg/hr ? 80.8 kg Dosing weight (0-32.32 mL/hr), intravenous, at 0-32.32 mL/hr, Continuous, Starting 05/26/19 at 2215, Premix ba,000 Units in 250 mL, Intensity type: Moderate, Starting Dose (units/kg/hr): 12, Anti-Xa < 0.1: A djust Dose (Units/kg/hr) by: 4, Anti-Xa < 0.1: Loading Dose (Units/kg): 60, Anti-Xa < 0.1: Repeat anti-Xa: 6 hours, Anti-Xa 0.1-0.19: Adjust Dose (Units/ kg/hr) by: 2, Anti-Xa 0.1-0.19: Loading Dose (Units/kg): 30, Anti-Xa 0.1-0.19: Repeat anti-Xa: 6 hours, Anti-Xa 0.2-0.5: Adjust Dose (Units/kg/hr) by: 0, Anti- Xa 0.2-0.5: Repeat anti-Xa: 6 hours. If two consecutive therapeutic result, re-chec k next AM., Anti-Xa > 0.19: Loading Dose (Units/kg): No Loading Dose, Anti-Xa 0.51-0.6: Adjust Dose (Units/kg/hr) by: -1, Anti-Xa 0.51-0.6: Repeat anti-Xa: 6 h ours, Anti-Xa 0.61-0.9: Hold Infusion: S top infusion for 1 hour, Anti-Xa 0.61- 0.9: Adjust Dose (Units/kg/hr) by: -2, Anti-Xa 0.61-0.9: Repeat anti-Xa: 6 hours after Heparin resumed, Anti-Xa >= 0.91: Hold Infusion: Stop infusion for 2 hours , Anti-Xa >= 0.91: Adjust Dose (Units/kg/hr) by: -4, Anti-Xa >= 0.91: Repeat anti-Xa: 6 hours after Heparin resumed PRN Medication Order 05/27/2019 05/28/2019 05/29/2019 docusate sodium capsule 100 mg (COLACE) 1606 ([facility] Hold - Provider: Transfer Provider, Automatic - Reason: Patient not available)1825 ([facility] Unhold - Provider: Transfer Provider, Automatic) 1415 ([facility] Hold - Provider: Transfer Prov ider, Automatic - Reason: Patient not available)1657 ([facility] Unhold - Provider: Transfer Provider, Automatic) 100 mg, oral, 2 times daily PRN, constip ation, Starting 05/26/19 at 2112, Do NOT crush or chew. heparin (porcine) 1,000 unit/mL injection 2,400 Units (CANCELED) 0608 (Given - Provider: Donna Horta R.N.) 2,400 Units (rounded from 2,424 Units = 30 Units/kg ? 80.8 kg Dosing weight), intravenous, As needed, antiXa 0.1-0.19, Starting 05/26/19 at 2205, Intensity type: Moderate, Anti-Xa < 0.1: Loading D ose (Units/kg): 60, Anti-Xa 0.1-0.19: Lo ading Dose (Units/kg): 30, Anti-Xa > 0.19: Loading Dose (Units/kg): No Loading Dose heparin (porcine) 1,000 unit/mL injection (CANCELED) 1547 (Given - Provider: Espinoza Joyner RCareyNCarey) As needed, Starting 05/28/19 at 1547, Intraprocedure (CV) iohexoL 350 mg iodine/mL solution (OMNIPAQUE) (CANCELED) 1602 (Given - Provider: Cabrera Chavarria M.D.) As needed, Starting 05/28/19 at 1602, Intraprocedure (CV) lidocaine 10 mg/mL (1 %) injection (XYLOCAINE) (CANCELED) 1535 (Given - Provider: Cabrera Chavarria M.D.) As needed, Starting 05/28/19 at 1535, Intraprocedure (CV) loperamide liquid 2 mg (IMODIUM A-D) 1606 ([facility] Hold - Provider: Transfer Provider, Automatic - Reason: Patient not available)1825 ([facility] Unhold - Provider: Transfer Provider, Automatic)2132 (Given - Provider: Carla Romero RCareyN.) 1415 ([facility] Hold - Provider: Transfer Provider, Automatic - Reason: Patient not available)1657 ([facility] Unhold - Provider: Transfer Provider, Automatic) 2 mg, oral, 3 times daily PRN, diarrhea, Starting 05/27/19 at 0425 nitroglycerin in D5W 100 mcg/mL syringe (for intra-arterial use only) (CANCELED) 1542 (Given - Provider: Rosalba Crowe M.D.) As needed, Starting 05/28/19 at 1542, Intraprocedure (CV) polyvinyl alcohol-povidone (PF) ophthalmic solution 1 drop (REFRESH CLASSIC) 1606 ([facility] Hold - Provider: Transfer Provider, Automatic - Reason: Patient not available)1825 ([facility] Unhold - Provider: Transfer Provider, Automatic) 1415 ([facility] Hold - Provider: Transfer Provider, Automatic - Reason: Patient not available)1657 ([facility] Unhold - Provider: Transfer Provider, Automatic) 1 drop, both eyes, 3 times daily PRN, dry eyes, Starting Sun 05/25 at 2138 sodium chloride 0.9 % injection 10 mL 1606 ([facility] Hold - Provider: Transfer Provider, Automatic - Reason: Patient not available)1825 ([facility] Unhold - Provider: Transfer Provider, Automatic) 1415 ([facility] Hold - Provider: Transfer Prov ider, Automatic - Reason: Patient not available)1657 ([facility] Unhold - Provider: Transfer Provider, Automatic) 10 mL, intravenous, As needed, line care , Starting 05/26/19 at 2112, Peripheral Intravenous Catheter and Rapid Infusion Catheter, prior to blood sampling, post blood transfusion or post blood sampling sodium chloride 0.9 % injection 3 mL 1606 ([facility] Hold - Provider: Transfer Provider, Automatic - Reason: Patient not available)1825 ([facility] Unhold - Provider: Transfer Provider, Automatic) 1415 ([facility] Hold - Provider: Transfer Prov ider, Automatic - Reason: Patient not available)1657 ([facility] Unhold - Provider: Transfer Provider, Automatic) 3 mL, intravenous, As needed, line care, Starting 05/26/19 at 2112, Prior to and following infusion and between multiple consecutive infusions: sodium chloride 0.9 % injection sulfur hexafluoride microspheres injection (LUMASON) 1 547 (Given - Provider: Velvet Delarosa R.N., CCRN)1606 ([facility] Hold - Provider: Transfer Provider, Automatic - Reason: Patient not available)1825 ([facility] Unhold - Provider: Transfer Provider, Automatic) 1415 ([facility] Hold - Provider: Transfer Prov ider, Automatic - Reason: Patient not available)1657 ([facility] Unhold - Provider: Transfer Provider, Automatic) intravenous, As needed, contrast, Starti ng Mon 05/27/19 at 1529, See protocol. Reconstitute each 25 mg vial with 5 mL NS. documented in this encounter Care Teams [employer] Worker Relationship Specialty Start Date End Date Elsewhere, Pcp PCP - General Internal Medicine 05/29/19 documented as of this encounter
--- OUTSIDE RECORDS SUMMARY | 2022-01-16 15:57 | XMS_ITS | Encounter Summary ---
:1935 Author Organization [facility] Address [address] [place] [address] Care Team Providers Name Role Phone Unavailable Primary Care Provider Unavailable Encounter Details Date Type Department Care Team Description 05/22/2019 Hospital Encounter Department of Dimitris Tyler Malig nant Neoplasm Laboratory Medicine M.DC[facility]y Of Bladder (HCC) and Pathology, [address] [place] [address] in [place], [place] [phone] [place] [address] [place], [place] (Work) [phone] Social History Tobacco Use Types Packs/Day Years [...] or relatives? How often do you attend protestant or More than 4 times per year 09/25/2021 sikh services? Do you belong to any clubs or Yes 09/25/2021 organizations such as protestant groups, unions, fraternal or athletic groups, or [...] as of this encounter Visit Diagnoses Diagnosis Malignant Neoplasm Of Bladder (HCC) documented in this encounter
--- OUTSIDE RECORDS SUMMARY | 2022-01-16 15:57 | XMS_ITS | Encounter Summary ---
:1935 Author Organization [facility] Address [address] [place] [address] Care Team Providers Name Role Phone Unavailable Primary Care Provider Unavailable Reason for Referral Outpatient (Routine) - Closed Specialty Diagnoses / Procedures Referred By Contact Refer red To Contact Neurology Diagnoses Meningioma Brain (HCC) Mario Cowan M.D. 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 (Primary Dx) [place], [place] [address] [place] [address] [address] [place] [phone] Social History Tobacco Use Types Packs/Day Years [...] Name Type Priority Associated Diagnoses Order [facility] Neurology - Neuro Outpatient Referral Routine Meningioma Brain Expected: Oncology consult (HCC) 05/28/2019 (clinic) (Approximate), Expires: 05/27/2022 documented as of this encounter Visit Diagnoses Diagnosis Meningioma Brain (HCC) - Primary documented in this encounter
--- OUTSIDE RECORDS SUMMARY | 2022-01-16 15:57 | XMS_ITS | Encounter Summary ---
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 [place], [place] [address] [phone] [place] [address] Social History Tobacco Use Types Packs/Day Years [...] on filedocumented in this encounter Care Teams [employer] Research Technician Relationship Specialty Start Date End Date Elsewhere, Pcp PCP - General Internal Medicine 05/29/19 documented as of this encounter
--- OUTSIDE RECORDS SUMMARY | 2022-01-16 15:57 | XMS_ITS | Encounter Summary ---
:1935 Author Organization [facility] Address [address] [place] [address] Care Team Providers Name Role Phone Unavailable Primary Care Provider Unavailable Encounter Details Date Type Department Care Team Description 05/28/2019 Surgery Division of Cardiovascular Dominik Crowe, Coronary Angiography Diseases in [address] [place] [phone] Social History Tobacco Use Types Packs/Day Years [...] or relatives? How often do you attend congregation or More than 4 times per year 09/25/2021 amish services? Do you belong to any clubs or Yes 09/25/2021 organizations such as congregation groups, unions, fraternal or athletic groups, or [...] Sign Reading Time Taken Comments Blood Pressure 111/73 05/28/2019 5:00 PM CUSTOMER SERVICE MANAGER Pulse 78 05/28/2019 5:00 PM CUSTOMER SERVICE MANAGER Temperature 36.8 ??C (98.2 ??F) 05/28/2019 5:00 PM CUSTOMER SERVICE MANAGER Respiratory Rate 18 05/28/2019 5:00 PM CUSTOMER SERVICE MANAGER Oxygen Saturation 98% 05/28/2019 5:00 PM CUSTOMER SERVICE MANAGER Inhaled Oxygen Concentration - - Weight 77.2 kg (170 lb 3.1 oz) 05/28/2019 8:00 AM CUSTOMER SERVICE MANAGER Height 179 cm (5' 10.47) 05/26/2019 8:30 PM CUSTOMER SERVICE MANAGER Body Mass Index 24.22 05/26/2019 8:30 PM CUSTOMER SERVICE MANAGER documented in this encounter Discharge Summaries Tracey Castro APRN, C.N.P. - 05/29/2019 2:28 PM CST CARDIOLOGY HOSPITAL DISCHARGE SUMMARY DATE OF ADMISSION: 05/26/2019 DATE OF DISCHARGE: 05/29/19 Discharge Provider: Marybel Herbert M.B.BCareySCarey Discharge Provider Team: T [facility] PRINCIPAL DIAGNOSIS Flutter Atrial (HCC) DISMISSAL DIAGNOSES Acute systolic congestive heart failure, EF 15-20% Paroxysmal atrial tachycardia/flutter with RVR, [id number] Mild coronary artery atherosclerosis Dilated cardiomyopathy, nonischemic [...] heparin initiated and he was transfered to [facility] for further treatment. ?? Transthoracic echocardiogram revealed [...] Care Providers: Elsewhere, Pcp (General) [address] [facility] [address] Primary Care Provider Phone Number: None Primary Care Provider Fax Number: None OMER SERVICE MANAGER documented in this encounter Discharge Instructions Discharge InstructionsWen Brambila - 05/29/2019 10:11 AM CST [facility]. Please identify this service name if you call with questions after hospitalization. OMER SERVICE MANAGER AttachmentsThe following attachments cannot be sent through Care Everywhere. Apixaban (By mouth) (Greenlandic)Lisinopril (By mouth) (Greenlandic)Metoprolol (By mouth) (Greenlandic)Torsemide (By mouth) (Greenlandic)documented in this encounter Medications at Time of [...] of this encounter Progress Notes Marybel Herbert M.B.BCareyS. - 05/29/2019 12:26 PM CST HEART RHYTHM [...] can be attempted. Remainder as per Ms. Traecy Castro, MARGOT, MEMBERSHIP MANAGER. Summary of recommendations: 1. Up titration of GDMT as outpatient 2. Continue anticoagulation 3. Discharge today Electronically signed by: Shalonda Rodriguez 05/29/19 12:26 PM CUSTOMER SERVICE MANAGER OMER SERVICE MANAGER Yasmine Randle R.RMark, L.R.T. - 05/28/2019 10:58 PM CST Non-Invasive Support: BPAP/CPAP Interface: Nasal prongs Patient on CPAP Autoset 4-12 cm H20 for the night. OMER SERVICE MANAGER Marybel Herbert M.B.B.S. - 05/28/2019 1:17 PM [...] will gently diurese. Remainder as per Ms. Montelongorussel. Summary of recommendations: 1. CT head plus or minus neurology consultation 2. Coronary angiography 3. Lisinopril. Electronically signed by: Cj Rodriguez. 05/28/19 1:21 PM CUSTOMER SERVICE MANAGER OMER SERVICE MANAGER Jennie Aguilar P.A.-C., M.S. - 05/28/2019 9:34 AM CST [facility] CARDIOLOGY INPATIENT PROGRESS NOTE SUBJECTIVE Mr. [...] Paroxysmal atrial tachycardia/flutter with rapid ventricular response, [id number] #3 Mild coronary artery atherosclerosis #4 Dilated [...] self care Jennie Aguilar P.A.-C., M.S. 05/28/19 RST [facility] ADDENDUM: CT Head was completed showing [...] warranted if the patient/spouse are interested. ADDENDUM: [id number] Angiogram was completed and showed mild coronary [...] P.A.-C., M.S. - 05/27/2019 9:37 AM CST [facility] CARDIOLOGY INPATIENT PROGRESS NOTE SUBJECTIVE Mr. [...] atrial tachycardia/flutter with rapid ventricular response #2 [id number] #3 Dilated cardiomyopathy, suspect ischemic, EF 22% [...] self care Jennie Aguilar P.A.-C., M.S. 05/27/19 [facility] OMER SERVICE MANAGER documented in this encounter H&P Notes Marybel [...] now. Transition to oral anticoagulation after angiogram Jonny RodriguezB.S. 05/27/2019 Alfonso Tejeda M.D. - 05/26/2019 10:00 PM CST SUBJECTIVE [...] drip was continued. Dr. Herbert with the [facility] service here was called, who recommended IV heparin and transfer here for possible cardioversion in the morning. Here, Mr. Franz has rates varying from the 90s to 120s. He feels much improved since initial presentation, and no longer notes any palpitations. He denies chest pain/pressure, dyspnea, orthopnea, PND, or lower extremity edema. 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 This prompted cardiology referral here at [place], and he saw Dr. Louie Borrero on [...] who is now admit radha from the [place] ED with atrial fibrillation/flutter with rapid ventricular response. #1 Paroxysmal atrial fibrillation/flutter with rapid ventricular response #2 [id number] #3 Dilated cardiomyopathy, suspect ischemic, EF 22% [...] the outside hospital. His initial ECG from [place] appears consistent with a likely atrial flutter with a rate of nearly 150 bpm. Rates slowed with initial diltiazem dosing. Here, rates have varied between 80s-90s up to 120. He has been vary stable and essentially asymptomatic since arrival here. I will plan the following: PLAN: - Initiate therapeutic heparin, moderate intensity, given [id number] of 4; he will need oral anticoagulation [...] given likelycoronary disease given evidence of recent MA - lipid panel here on admission shows [...] CODE STATUS: FULL CODE; discussed on admission OMER SERVICE MANAGER documented in this encounter Nursing Notes Gaudencio Jenkins RIsidra. - 05/29/2019 2:50 PM CST Shift Goals: Clinical Goals for the Shift: Patient will remain free from falls overnight Identify possible barriers to meeting goals/advancing plan of care: End of Shift Summary: met. Patient was stable to discharge OMER SERVICE MANAGER Hammad Zambrano R.N. - 05/29/2019 5:54 AM [...] see flow sheets and assessments for details. OMER SERVICE MANAGER documented in this encounter Miscellaneous Notes Hospital Course - AnyadavidTracey johnsonMARGOT, Yehuda. - 05/27/2019 5:06 PM CUSTOMER SERVICE MANAGER Mr. Franz is an 84-year-old gentleman who [...] heparin initiated and he was transfered to [facility] for further treatment. ?? Transthoracic echocardiogram revealed [...] setting up outpatient follow-up with Dr. Harrison. OMER SERVICE MANAGER documented in this encounter Plan of Treatment Scheduled Orders Name Type Priority Associated Diagnoses Order S chedule Cardiac Catheterization Cardiac Cath Routine Cardiomyopathy On ce for 1 Ischemic Occurrences starting 05/27/2019 unti l 05/27/2019 documented as of this encounter Procedures Procedure Name Priority Date/Time Associated Comments Diagnosis CBC WITHOUT Routine 05/29/2019 6:35 Results for DIFFERENTIAL, B AM CUSTOMER SERVICE MANAGER this procedu re are in the results section. T3 Routine 05/29/2019 6:35 Results for (TRIIODOTHYRONINE), AM CUSTOMER SERVICE MANAGER this pro cedure FREE, S are in the results section. T4 (THYROXINE), FREE, Routine 05/29/2019 6:35 Res ults for S AM CUSTOMER SERVICE MANAGER this procedure are in the results section. BASIC METABOLIC Routine 05/29/2019 6:35 Results f or PANEL, S/P AM CUSTOMER SERVICE MANAGER this procedure are in the results section. CARDIAC Routine 05/28/2019 4:04 Cardiomyopathy Results fo r CATHETERIZATION PM CUSTOMER SERVICE MANAGER Ischemic this procedu re are in the results section. CARDIAC Routine 05/28/2019 4:04 Cardiomyopathy Results fo r CATHETERIZATION PM CUSTOMER SERVICE MANAGER Ischemic this procedu re are in the results section. CT HEAD WITHOUT IV RAD - Routine 05/28/2019 Results for CONTRAST (most inpatients 10:52 AM CUSTOMER SERVICE MANAGER this proced ure and all are in the outpatients) results section. HEPARIN LEVEL ANTI-XA Routine 05/28/2019 9:37 Res ults for ASSAY, P AM CUSTOMER SERVICE MANAGER this procedure are in the results section. CBC WITHOUT Routine 05/28/2019 9:37 Results for DIFFERENTIAL, B AM CUSTOMER SERVICE MANAGER this procedu re are in the results section. BASIC METABOLIC Routine 05/28/2019 9:37 Results f or PANEL, S/P AM CUSTOMER SERVICE MANAGER this procedure are in the results section. ADULT OXYGEN THERAPY Routine 05/28/2019 8:01 AM CUSTOMER SERVICE MANAGER ADULT OXYGEN THERAPY Routine 05/27/2019 8:01 PM CUSTOMER SERVICE MANAGER HEPARIN LEVEL ANTI-XA Timed 05/27/2019 6:48 Res ults for ASSAY, P PM CUSTOMER SERVICE MANAGER this procedure are in the results section. (TTE) 2D ECHO DOPPLER Routine 05/27/2019 3:55 Res ults for COLOR AND CONTRAST PM CUSTOMER SERVICE MANAGER this proc edure are in the results section. HEPARIN LEVEL ANTI-XA Timed 05/27/2019 Result s for ASSAY, P 11:55 AM CUSTOMER SERVICE MANAGER this procedure are in the results section. ADULT OXYGEN THERAPY Routine 05/27/2019 8:01 AM CUSTOMER SERVICE MANAGER HEPARIN LEVEL ANTI-XA Timed 05/27/2019 4:51 Res ults for ASSAY, P AM CUSTOMER SERVICE MANAGER this procedure are in the results section. CBC WITHOUT Routine 05/27/2019 4:51 Results for DIFFERENTIAL, B AM CUSTOMER SERVICE MANAGER this procedu re are in the results section. CALCIUM, TOT, S/P Routine 05/27/2019 4:51 Results for AM CUSTOMER SERVICE MANAGER this procedure are in the results section. LIPID PANEL, S STAT 05/26/2019 Results for 10:22 PM CUSTOMER SERVICE MANAGER this procedure are in the results section. NT-PRO B-TYPE STAT 05/26/2019 Results for NATRIURETIC PEPTIDE 10:22 PM CUSTOMER SERVICE MANAGER this pro cedure (BNP), S are in the results section. ACTIVATED PARTIAL STAT 05/26/2019 Results fo r THROMBOPLASTIN TIME 10:22 PM CUSTOMER SERVICE MANAGER this pro cedure (APTT), P are in the results section. CBC WITH STAT 05/26/2019 Results for DIFFERENTIAL, B 10:22 PM CUSTOMER SERVICE MANAGER this procedu re are in the results section. THYROID-STIMULATING STAT 05/26/2019 Results for HORMONE-SENSITIVE 10:22 PM CUSTOMER SERVICE MANAGER this proce dure (S-TSH) are in the results section. PHOSPHORUS STAT 05/26/2019 Results for (INORGANIC), S 10:22 PM CUSTOMER SERVICE MANAGER this procedur e are in the results section. MAGNESIUM, S STAT 05/26/2019 Results for 10:22 PM CUSTOMER SERVICE MANAGER this procedure are in the results section. BASIC METABOLIC STAT 05/26/2019 Results for PANEL, S/P 10:22 PM CUSTOMER SERVICE MANAGER this procedure are in the results section. ADULT OXYGEN THERAPY Routine 05/26/2019 9:33 PM CUSTOMER SERVICE MANAGER ADULT OXYGEN THERAPY Routine 05/26/2019 9:33 PM CUSTOMER SERVICE MANAGER ECG Routine 05/26/2019 9:14 Results for PM CUSTOMER SERVICE MANAGER this procedure are in the results section. documented in this encounter Results (ABNORMAL) CBC without Differential (05/29/2019 6:35 AM CUSTOMER SERVICE MANAGER) [facility] gist Method Time Signature Hemoglobin 11.9 (L) 13.2 - 05/29/2019 DTL 16.6 g/dL 7:46 AM CUSTOMER SERVICE MANAGER Hematocrit 36.9 (L) 38.3 - 05/29/2019 DTL 48.6 % 7:46 AM CUSTOMER SERVICE MANAGER Erythrocytes 4.15 (L) 4.35 - 05/29/2019 DTL 5.65 7:46 AM CUSTOMER SERVICE MANAGER x10(12)/L MCV 88.9 78.2 - 05/29/2019 DTL 97.9 fL 7:46 AM CUSTOMER SERVICE MANAGER RBC Distrib Width 13.6 11.8 - 05/29/2019 DTL 14.5 % 7:46 AM CUSTOMER SERVICE MANAGER Platelet Count 190 135 - 317 05/29/2019 DTL x10(9)/L 7:46 AM CUSTOMER SERVICE MANAGER Leukocytes 6.8 3.4 - 9.6 05/29/2019 DTL x10(9)/L 7:46 AM CUSTOMER SERVICE MANAGER Specimen Anatomical Collection Method Collection Time Receive d Time (Source) Location / / Volume Laterality Blood (Blood, 05/29/2019 6:35 AM 05/29/19 7:32 Venous) CUSTOMER SERVICE MANAGER AM CUSTOMER SERVICE MANAGER Jennie Aguilar P.A.-C., M.S. LAB BLOOD ADD-ON Performing Organization Address City/State/ZIP Code Phon e Number [facility] - [address] [place], [place] [address] [facility] [place] [address] [facility] [address] (ABNORMAL) Basic Metabolic Panel (05/29/2019 6:35 AM CUSTOMER SERVICE MANAGER) P athologist Signature Potassium, S 3.8 3.6 - 5.2 05/29/2019 DTL mmol/L 8:46 AM CUSTOMER SERVICE MANAGER Sodium, S 143 135 - 145 05/29/2019 DTL mmol/L 8:46 AM CUSTOMER SERVICE MANAGER Chloride, S 104 98 - 107 05/29/2019 DTL mmol/L 8:46 AM CUSTOMER SERVICE MANAGER Bicarbonate, S 26 22 - 29 05/29/2019 DTL mmol/L 8:46 AM CUSTOMER SERVICE MANAGER Anion Gap 13 7 - 15 05/29/2019 DTL 8:46 AM CUSTOMER SERVICE MANAGER BUN (Blood Urea 16 8 - 24 05/29/2019 DTL Nitrogen), S mg/dL 8:46 AM CUSTOMER SERVICE MANAGER Creatinine 1.20 0.74 - 05/29/2019 DTL 1.35 mg/dL 8:46 AM CUSTOMER SERVICE MANAGER eGFR-Non 55 (L) >=60 05/29/2019 DTL Black/ mL/min/BSA 8:46 AM CUSTOMER SERVICE MANAGER [place] Comment: ----ADDITIONAL INFORMATION---- Estimated GFR calculated using the 2009 CKD_EPI creatinine equation. eGFR-Black/ 64 >=60 mL/min/BSA 2019 8:46 AM CUSTOMER SERVICE MANAGER DTL Comment: ----ADDITIONAL INFORMATION---- Estimated GFR calculated using the 2009 CKD_EPI creatinine equation. Calcium, Total, S 8.3 (L) 8.8 - 10.2 mg/dL 05/29/2019 8:46 AM CUSTOMER SERVICE MANAGER DTL Glucose, S 91 70 - 140 mg/dL 05/29/2019 8:46 AM CUSTOMER SERVICE MANAGER D TL Specimen Anatomical Collection Method Collection Time Receive d Time (Source) Location / / Volume Laterality Blood (Blood, 05/29/2019 6:35 AM 05/29/19 8:14 Venous) CUSTOMER SERVICE MANAGER AM CUSTOMER SERVICE MANAGER Jennie Aguilar P.A.-C., M.S. LAB BLOOD ADD-ON Performing Organization Address City/State/ZIP Code Phon e Number [facility] - [facility] [address] [place], [place] [address] [facility] [place] [address] [facility] [address] [facility] (ABNORMAL) T3 (Triiodothyronine), Free (05/29/2019 6:35 AM CUSTOMER SERVICE MANAGER) P athologist Signature T3 2.2 (L) 2.8 - 4.4 05/29/2019 [facility] (Triiodothyron pg/mL 11:13 AM CUSTOMER SERVICE MANAGER ine), Free, S Specimen Anatomical Collection Method Collection Time Receive d Time (Source) Location / / Volume Laterality Blood (Blood, 05/29/2019 6:35 AM 05/29/19 20 Venous) CUSTOMER SERVICE MANAGER 10:13 AM CUSTOMER SERVICE MANAGER Jennie Aguilar P.A.-C., M.S. LAB BLOOD ADD-ON Performing Organization Address City/[facility]/ZIP Code Phon e Number [facility] [address] [place], [place] [address] [facility] [place] [address] Laboratory Medicine and Pathology [address] [place] T4 (Thyroxine), Free (05/29/2019 6:35 AM CUSTOMER SERVICE MANAGER) athologist Signature T4 (Thyroxine), 1.5 0.9 - 1.7 05/29/2019 [facility] Free, S ng/dL 8:46 AM CUSTOMER SERVICE MANAGER Specimen Anatomical Collection Method Collection Time Receive d Time (Source) Location / / Volume Laterality Blood (Blood, 05/29/2019 6:35 AM 05/29/19 20 8:14 Venous) CUSTOMER SERVICE MANAGER AM CUSTOMER SERVICE MANAGER Jennie Aguliar P.A.-C., M.S. LAB BLOOD ADD-ON Performing Organization Address City/[facility]/ZIP Code Phon e Number [facility] - [address] [place], [place] [address] [place] [address] [facility] [address] CORONARY ANGIOGRAPHY, LEFT HEART CATHETERIZATION (05/28/2019 4:04 PM CUSTOMER SERVICE MANAGER) Anatomical Region Laterality Modality X-Ray Angiography Specimen (Source) Anatomical Collection Method Collection Time Re ceived Time Location / / Volume Laterality 05/28/2019 3:32 PM CUSTOMER SERVICE MANAGER Narrative 05/28/2019 4:10 PM CUSTOMER SERVICE MANAGER For the complete report, see the [employer] Documents. PROCEDURE TYPES 1. ??CORONARY ANGIOGRAPHY 2. [...] 50mL For the complete report, see the [employer] Documents. Procedure Note Rosalba Crowe M.D. - 05/28/2019Format ting of this note might be different from the original. For the complete report, see the [employer] Documents. PROCEDURE TYPES 1. CORONARY ANGIOGRAPHY 2. [...] 50mL For the complete report, see the [employer] Documents. Jennie Aguilar P.A.-C., M.S. CV CARDIAC CATH PROCE KALLI CT Head without IV Contrast (05/28/2019 10:52 AM CUSTOMER SERVICE MANAGER) Anatomical Region Laterality Modality Head, Neuroradiology RST LOS, N/A Computed T omography, Computed Neuroradiology ARZ LOS, Neuroradiology T omography FLA LOS Specimen (Source) Anatomical Collection Method Collection Time Re ceived Time Location / / Volume Laterality 05/28/2019 10:47 AM CUSTOMER SERVICE MANAGER Impressions 05/28/2019 11:13 AM CUSTOMER SERVICE MANAGER Slight interval increase in size of heavily calcified right frontal parafalcine meningioma. Otherwise, simil ar extent of associated right frontal lobe mass effect, with attenuation the f rontal horn of the right lateral ventricle as well as associated vasogeni c edema. Narrative 05/28/2019 11:13 AM CUSTOMER SERVICE MANAGER EXAM: CT HEAD WITHOUT IV CONTRAST COMPARISON: [...] PROCEDURES Heparin Anti-Xa Assay (05/28/2019 9:37 AM CUSTOMER SERVICE MANAGER) P athologist Signature Heparin 0.47 IU/mL 05/28/2019 DTL Anti-Xa, P 10:19 AM CUSTOMER SERVICE MANAGER Comment: UFH therapeutic range: ?? 0.30-0.70 IU/mL [...] (Blood, 05/28/2019 9:37 AM 05/28/19 20 Venous) CUSTOMER SERVICE MANAGER 10:04 AM CUSTOMER SERVICE MANAGER Jennie Aguilar P.A.-C., M.S. LAB BLOOD NON ADD-ON Performing Organization Address City/State/ZIP Code Phon e Number [facility] - [address] [place] [address] (ABNORMAL) Basic Metabolic Panel (05/28/2019 9:37 AM CUSTOMER SERVICE MANAGER) P athologist Signature Potassium, S 4.1 3.6 - 5.2 05/28/2019 DTL mmol/L 11:18 AM CUSTOMER SERVICE MANAGER Sodium, S 142 135 - 145 05/28/2019 DTL mmol/L 11:18 AM CUSTOMER SERVICE MANAGER Chloride, S 105 98 - 107 05/28/2019 DTL mmol/L 11:18 AM CUSTOMER SERVICE MANAGER Bicarbonate, S 26 22 - 29 05/28/2019 DTL mmol/L 11:18 AM CUSTOMER SERVICE MANAGER Anion Gap 11 7 - 15 05/28/2019 DTL 11:18 AM CUSTOMER SERVICE MANAGER BUN (Blood Urea 14 8 - 24 05/28/2019 DTL Nitrogen), S mg/dL 11:18 AM CUSTOMER SERVICE MANAGER Creatinine 1.08 0.74 - 05/28/2019 DTL 1.35 mg/dL 11:18 AM CUSTOMER SERVICE MANAGER eGFR-Non 63 >=60 05/28/2019 DTL Black/ mL/min/BSA 11:18 AM CUSTOMER SERVICE MANAGER [place] Comment: ----ADDITIONAL INFORMATION---- Estimated GFR calculated using the 2009 CKD_EPI creatinine equation. eGFR-Black/ 72 >=60 mL/min/BSA 2019 11:18 AM CUSTOMER SERVICE MANAGER DTL Comment: ----ADDITIONAL INFORMATION---- Estimated GFR calculated using the 2009 CKD_EPI creatinine equation. Calcium, Total, S 8.7 (L) 8.8 - 10.2 mg/dL 05/28/2019 11:1 8 AM CUSTOMER SERVICE MANAGER DTL Glucose, S 99 70 - 140 mg/dL 05/28/2019 11:18 AM CUSTOMER SERVICE MANAGER DTL Specimen Anatomical Collection Method Collection Time Receive d Time (Source) Location / / Volume Laterality Blood (Blood, 05/28/2019 9:37 AM 05/28/19 20 Venous) CUSTOMER SERVICE MANAGER 10:57 AM CUSTOMER SERVICE MANAGER Jennie Aguilar P.A.-C., M.S. LAB BLOOD ADD-ON Performing Organization Address City/State/ZIP Code Phon e Number [place] [address] [address] [facility] [place] [address] [facility] [place] [address] [facility] (ABNORMAL) CBC without Differential (05/28/2019 9:37 AM CUSTOMER SERVICE MANAGER) Patholo gist Method Time Signature Hemoglobin 12.8 (L) 13.2 - 05/28/2019 DTL 16.6 g/dL 10:11 AM CUSTOMER SERVICE MANAGER Hematocrit 40.3 38.3 - 05/28/2019 DTL 48.6 % 10:11 AM CUSTOMER SERVICE MANAGER Erythrocytes 4.52 4.35 - 05/28/2019 DTL 5.65 10:11 AM CUSTOMER SERVICE MANAGER x10(12)/L MCV 89.2 78.2 - 05/28/2019 DTL 97.9 fL 10:11 AM CUSTOMER SERVICE MANAGER RBC Distrib Width 13.5 11.8 - 05/28/2019 DTL 14.5 % 10:11 AM CUSTOMER SERVICE MANAGER Platelet Count 210 135 - 317 05/28/2019 DTL x10(9)/L 10:11 AM CUSTOMER SERVICE MANAGER Leukocytes 6.3 3.4 - 9.6 05/28/2019 DTL x10(9)/L 10:11 AM CUSTOMER SERVICE MANAGER Specimen Anatomical Collection Method Collection Time Receive d Time (Source) Location / / Volume Laterality Blood (Blood, 05/28/2019 9:37 AM 05/28/19 20 Venous) CUSTOMER SERVICE MANAGER 10:03 AM CUSTOMER SERVICE MANAGER Alfonso Jackson M.D. LAB BLOOD ADD-ON Performing Organization Address City/State/ZIP Code Phon e Number [facility] - [address] [place] [address] [place] [address] [facility] [address] [facility] Heparin Anti-Xa Assay (05/27/2019 6:48 PM CUSTOMER SERVICE MANAGER) athologist Signature Heparin 0.41 IU/mL 05/27/2019 DT Anti-Xa, P 7:42 PM CUSTOMER SERVICE MANAGER Comment: UFH therapeutic range: ?? 0.30-0.70 IU/mL [...] 05/27/2019 6:48 PM 05/27/19 20 7:23 Venous) CUSTOMER SERVICE MANAGER PM CUSTOMER SERVICE MANAGER Jennie Aguilar P.A.-C., M.SCarey LAB BLOOD NON ADD-ON Performing Organization Address City/State/ZIP Code Phon e Number [facility] - [address] [place], [place] [address] [facility] [place] [address] [facility] [address] (TTE) 2D ECHO DOPPLER COLOR AND CONTRAST (05/27/2019 3:55 PM CUSTOMER SERVICE MANAGER) [facility] Method Time Signature Ejection Fraction 15 MC [...] / / Volume Laterality 05/27/2019 1:57 PM CUSTOMER SERVICE MANAGER Impressions 05/27/2019 3:57 PM CUSTOMER SERVICE MANAGER Intravenous Lumason ultrasound enhancement agent was administered [...] ion. For the complete report, see the [employer] Documents. Narrative 05/27/2019 3:57 PM CUSTOMER SERVICE MANAGER For the complete report, see the [employer] Documents. Final Impressions 1. Severely enlarged left [...] original. For the complete report, see the [employer] Documents. Final Impressions 1. Severely enlarged left [...] evel Documents. Jennie Aguilar P.A.-C., M.S. CV ECHO PROCEDURES Heparin Anti-Xa Assay (05/27/2019 11:55 AM CUSTOMER SERVICE MANAGER) P athologist Signature Heparin 0.49 IU/mL 05/27/2019 DTL Anti-Xa, P 1:33 PM CUSTOMER SERVICE MANAGER Comment: UFH therapeutic range: ?? 0.30-0.70 IU/mL [...] Blood (Blood, 05/27/2019 11:55 05/27/2019 Venous) AM CUSTOMER SERVICE MANAGER 12:23 PM CUSTOMER SERVICE MANAGER Marybel FullerB.S. LAB BLOOD NON ADD-ON Performing Organization Address City/[facility] Phon e Number [facility] - [address] [place], [place] [address] [place] [address] [facility] [address] [facility] Heparin Anti-Xa Assay (05/27/2019 4:51 AM CUSTOMER SERVICE MANAGER) P athologist Signature Heparin 0.19 IU/mL 05/27/2019 DTL Anti-Xa, P 5:30 AM CUSTOMER SERVICE MANAGER Comment: UFH therapeutic range: ?? 0.30-0.70 IU/mL [...] (Blood, 05/27/2019 4:51 AM 05/27/19 5:13 Venous) CUSTOMER SERVICE MANAGER AM CUSTOMER SERVICE MANAGER Marybel FullerB.S. LAB BLOOD NON ADD-ON Performing Organization Address City/State/ZIP Code Phon e Number [facility] - [address] [place] [address] (ABNORMAL) CBC without Differential (05/27/2019 4:51 AM CUSTOMER SERVICE MANAGER) Patholo gist Method Time Signature Hemoglobin 11.6 (L) 13.2 - 05/27/2019 DTL 16.6 g/dL 5:21 AM CUSTOMER SERVICE MANAGER Hematocrit 36.5 (L) 38.3 - 05/27/2019 DTL 48.6 % 5:21 AM CUSTOMER SERVICE MANAGER Erythrocytes 4.03 (L) 4.35 - 05/27/2019 DTL 5.65 5:21 AM CUSTOMER SERVICE MANAGER x10(12)/L MCV 90.6 78.2 - 05/27/2019 DTL 97.9 fL 5:21 AM CUSTOMER SERVICE MANAGER RBC Distrib Width 14.0 11.8 - 05/27/2019 DTL 14.5 % 5:21 AM CUSTOMER SERVICE MANAGER Platelet Count 167 135 - 317 05/27/2019 DTL x10(9)/L 5:21 AM CUSTOMER SERVICE MANAGER Leukocytes 5.1 3.4 - 9.6 05/27/2019 DTL x10(9)/L 5:21 AM CUSTOMER SERVICE MANAGER Specimen Anatomical Collection Method Collection Time Receive d Time (Source) Location / / Volume Laterality Blood (Blood, 05/27/2019 4:51 AM 05/27/19 20 5:13 Venous) CUSTOMER SERVICE MANAGER AM CUSTOMER SERVICE MANAGER Alfonso Jackson M.D. LAB BLOOD ADD-ON Performing Organization Address City/State/ZIP [facility] Phon e Number [facility] - [address] [place] [address] (ABNORMAL) Calcium, Total (05/27/2019 4:51 AM CUSTOMER SERVICE MANAGER) P athologist Signature Calcium, 8.5 (L) 8.8 - 10.2 05/27/2019 DTL Total, S mg/dL 5:50 AM CUSTOMER SERVICE MANAGER Specimen Anatomical Collection Method Collection Time Receive d Time (Source) Location / / Volume Laterality Blood (Blood, 05/27/2019 4:51 AM 05/27/19 20 5:34 Venous) CUSTOMER SERVICE MANAGER AM CUSTOMER SERVICE MANAGER Alfonso D Beachey M.D. LAB BLOOD ADD-ON Performing Organization Address City/[facility] Phon e Number [facility] - [address] DTL [address] (ABNORMAL) APTT (Activated Partial Thromboplastin Time) (05/26/2019 10:22 PM CUSTOMER SERVICE MANAGER) athologist Signature Activated 38 (H) 25 - 37 05/26/2019 [facility] Partial sec 10:39 PM CUSTOMER SERVICE MANAGER Thrombopl Time, P Specimen Anatomical Collection Method Collection Time Receive d Time (Source) Location / / Volume Laterality Blood (Blood, 05/26/2019 10:22 05/26/2019 Venous) PM CUSTOMER SERVICE MANAGER 10:29 PM CUSTOMER SERVICE MANAGER Alfonso Jackson M.D. LAB BLOOD ADD-ON Performing Organization Address [facility] Phon e Number [facility] - [address] Lipid Panel (05/26/2019 10:22 PM CUSTOMER SERVICE MANAGER) athologist Signature Cholesterol, 138 mg/dL 05/26/2019 DTL Total 11:17 PM CUSTOMER SERVICE MANAGER Comment: ----REFERENCE VALUE---- Desirable: < 200 Borderline high: 200 - 239 High: > or = 240 Triglycerides 60 mg/dL 05/26/2019 11:17 PM CUSTOMER SERVICE MANAGER DT L Comment: ----REFERENCE VALUE---- Normal: <150 Borderline high: 150-199 High: 200-499 Very high: > or =500 Cholesterol, HDL, S 52 >=40 mg/dL 05/26/2019 11:17 PM CUSTOMER SERVICE MANAGER DTL Calculated LDL 74 mg/dL 05/26/2019 11:17 PM CUSTOMER SERVICE MANAGER D TL Comment: ----REFERENCE VALUE---- Desirable: <100 Above Desirable: 100-129 Borderline high: 130-159 High: 160-189 Very high: > or =190 Cholesterol, Non-HDL, Calculated 86 mg/dL 020 11:17 PM CUSTOMER SERVICE MANAGER DTL Comment: ----REFERENCE VALUE---- Desirable: <130 Above Desirable: 130-159 Borderline high: 160-189 High: 190-219 Very high: > or =220 Specimen Anatomical Collection Method Collection Time Receive d Time (Source) Location / / Volume Laterality Blood (Blood, 05/26/2019 10:22 05/26/2019 Venous) PM CUSTOMER SERVICE MANAGER 10:39 PM CUSTOMER SERVICE MANAGER Alfonso Jackson M.D. LAB BLOOD ADD-ON Performing Organization Address City/[facility] Phon e Number [facility] - [address] [place], [place] [address] [place] [address] [facility] [address] [facility] (ABNORMAL) S-TSH (Thyroid-Stimulating Hormone - Sensitive) (05/26/2019 10:22 PM CUSTOMER SERVICE MANAGER) P athologist Signature TSH, Sensitive 7.3 (H) 0.3 - 4.2 05/26/2019 DTL mIU/L 11:17 PM CUSTOMER SERVICE MANAGER Specimen Anatomical Collection Method Collection Time Receive d Time (Source) Location / / Volume Laterality Blood (Blood, 05/26/2019 10:22 05/26/2019 Venous) PM CUSTOMER SERVICE MANAGER 10:39 PM CUSTOMER SERVICE MANAGER Alfonso Jackson M.D. LAB BLOOD ADD-ON Performing Organization Address City/[facility] Phon e Number [facility] - [address] [place], [place] [address] [place] [address] [address] (ABNORMAL) NT-Pro B-Type Natriuretic Peptide (BNP) (05/26/2019 10:22 PM CUSTOMER SERVICE MANAGER) P athologist Signature NT-Pro BNP 7127 (H) <=138 pg/mL 05/26/2019 DTL 11:17 PM CUSTOMER SERVICE MANAGER Comment: NT-proBNP values less than 300 pg/mL [...] Blood (Blood, 05/26/2019 10:22 05/26/2019 Venous) PM CUSTOMER SERVICE MANAGER 10:39 PM CUSTOMER SERVICE MANAGER Alfonso Jackson M.D. LAB BLOOD ADD-ON Performing Organization Address City/[facility] Phon e Number [facility] - [address] [place] [address] Phosphorus Inorganic (05/26/2019 10:22 PM CUSTOMER SERVICE MANAGER) P athologist Signature Phosphorus 3.5 2.5 - 4.5 05/26/2019 DT (Inorganic), S mg/dL 11:17 PM CUSTOMER SERVICE MANAGER Specimen Anatomical Collection Method Collection Time Receive d Time (Source) Location / / Volume Laterality Blood (Blood, 05/26/2019 10:22 05/26/2019 Venous) PM CUSTOMER SERVICE MANAGER 10:39 PM CUSTOMER SERVICE MANAGER Alfonso Jackson M.D. LAB BLOOD ADD-ON Performing Organization Address [facility] Phon e Number [facility] - [address] [place] [address] (ABNORMAL) CBC with Differential, Blood (05/26/2019 10:22 PM CUSTOMER SERVICE MANAGER) Patholo gist Method Time Signature Hemoglobin 12.0 (L) 13.2 - 05/26/2019 STMA 16.6 g/dL 10:31 PM CUSTOMER SERVICE MANAGER Hematocrit 37.1 (L) 38.3 - 05/26/2019 STMA 48.6 % 10:31 PM CUSTOMER SERVICE MANAGER Erythrocytes 4.17 (L) 4.35 - 05/26/2019 STMA 5.65 10:31 PM CUSTOMER SERVICE MANAGER x10(12)/L MCV 89.0 78.2 - 05/26/2019 STMA 97.9 fL 10:31 PM CUSTOMER SERVICE MANAGER RBC Distrib Width 13.9 11.8 - 05/26/2019 STMA 14.5 % 10:31 PM CUSTOMER SERVICE MANAGER Platelet Count 187 135 - 317 05/26/2019 STMA x10(9)/L 10:31 PM CUSTOMER SERVICE MANAGER Leukocytes 5.2 3.4 - 9.6 05/26/2019 STMA x10(9)/L 10:31 PM CUSTOMER SERVICE MANAGER Neutrophils 3.04 1.56 - 05/26/2019 STMA 6.45 10:31 PM CUSTOMER SERVICE MANAGER x10(9)/L Lymphocytes 1.51 0.95 - 05/26/2019 STMA 3.07 10:31 PM CUSTOMER SERVICE MANAGER x10(9)/L Monocytes 0.47 0.26 - 05/26/2019 STMA 0.81 10:31 PM CUSTOMER SERVICE MANAGER x10(9)/L Eosinophils 0.13 0.03 - 05/26/2019 STMA 0.48 10:31 PM CUSTOMER SERVICE MANAGER x10(9)/L Basophils 0.04 0.01 - 05/26/2019 STMA 0.08 10:31 PM CUSTOMER SERVICE MANAGER x10(9)/L Specimen Anatomical Collection Method Collection Time Receive d Time (Source) Location / / Volume Laterality Blood (Blood, 05/26/2019 10:22 05/26/2019 Venous) PM CUSTOMER SERVICE MANAGER 10:29 PM CUSTOMER SERVICE MANAGER Alfonso Jackson M.D. LAB BLOOD ADD-ON Performing Organization Address City/[facility] Phon e Number [facility] - [address] [place] [address] Magnesium (05/26/2019 10:22 PM CUSTOMER SERVICE MANAGER) athologist Signature Magnesium, S 2.2 1.7 - 2.3 05/26/2019 DTL mg/dL 11:17 PM CUSTOMER SERVICE MANAGER Specimen Anatomical Collection Method Collection Time Receive d Time (Source) Location / / Volume Laterality Blood (Blood, 05/26/2019 10:22 05/26/2019 Venous) PM CUSTOMER SERVICE MANAGER 10:39 PM CUSTOMER SERVICE MANAGER Alfonso Jackson M.D. LAB BLOOD ADD-ON Performing Organization Address City/State/[facility] Phon e Number [facility] - [address] [place] [address] [address] [facility] DTL [address] Basic Metabolic Panel (05/26/2019 10:22 PM CUSTOMER SERVICE MANAGER) athologist Signature Potassium, P 4.2 3.6 - 5.2 05/26/2019 STMA mmol/L 10:46 PM CUSTOMER SERVICE MANAGER Sodium, P 138 135 - 145 05/26/2019 STMA mmol/L 10:46 PM CUSTOMER SERVICE MANAGER Chloride, P 103 98 - 107 05/26/2019 STMA mmol/L 10:46 PM CUSTOMER SERVICE MANAGER Bicarbonate, P 24 22 - 29 05/26/2019 STMA mmol/L 10:46 PM CUSTOMER SERVICE MANAGER Anion Gap, P 11 7 - 15 05/26/2019 STMA 10:46 PM CUSTOMER SERVICE MANAGER BUN (Blood Urea 17 8 - 24 05/26/2019 STMA Nitrogen), P mg/dL 10:46 PM CUSTOMER SERVICE MANAGER Creatinine 0.99 0.74 - 05/26/2019 STMA 1.35 mg/dL 10:46 PM CUSTOMER SERVICE MANAGER eGFR-Black/Afric 81 >=60 05/26/2019 STMA an [place] mL/min/BSA 10:46 PM CUSTOMER SERVICE MANAGER Comment: ----ADDITIONAL INFORMATION---- Estimated GFR calculated using the 2009 CKD_EPI creatinine equation. eGFR Non-Black/ 70 >=60 mL/min/BSA 05/26/2019 10:46 PM CUSTOMER SERVICE MANAGER STMA Comment: ----ADDITIONAL INFORMATION---- Estimated GFR calculated using the 2009 CKD_EPI creatinine equation. Calcium, Total, P 8.8 8.8 - 10.2 mg/dL 05/26/2019 10:4 6 PM CUSTOMER SERVICE MANAGER STMA Glucose, P 116 70 - 140 mg/dL 05/26/2019 10:46 PM CUSTOMER SERVICE MANAGER STMA Specimen Anatomical Collection Method Collection Time Receive d Time (Source) Location / / Volume Laterality Blood (Blood, 05/26/2019 10:22 05/26/2019 Venous) PM CUSTOMER SERVICE MANAGER 10:29 PM CUSTOMER SERVICE MANAGER Alfonso Jackson M.D. LAB BLOOD ADD-ON Performing Organization Address City/State/ZIP Code Phon e Number [facility] - [address] [place] [address] [address] [place] [address] [facility] 200 [facility] ECG 12 Lead (05/26/2019 9:14 PM CUSTOMER SERVICE MANAGER) P athologist Signature Ventricular Rate 124 BPM MUSE ECG/Min OH Interval 136 ms MUSE QRSD Interval 150 ms MUSE QT Interval 412 ms MUSE QTC Interval 591 ms MUSE R Marshall 48 degrees MUSE T Wave Marshall -179 degrees MUSE Specimen Anatomical Collection Method Collection Time Receive d Time (Source) Location / / Volume Laterality 05/26/2019 9:14 PM 0 9:23 CUSTOMER SERVICE MANAGER PM CUSTOMER SERVICE MANAGER Impressions MUSE - 05/26/2019 9:23 PM CUSTOMER SERVICE MANAGER Sinus tachycardia Left bundle branch block T [...] Primary Atrial Fibrillation Unspecified Cardiomyopathy Ischemic Cardiomyopathy Ischemic Apnea Sleep Obstructive Hypothyroidism Hyperlipidemia Mixed Meningioma [...] 5 mg (ELIQUIS) Given 05/29/2019 8:24 AM CUSTOMER SERVICE MANAGER 5 mg 5 mg, oral, 2 times daily, First dose on Mon05/28/19 at 2100, Drug Monitoring Program: Pharmacist to adjust medication dosing based on indication and drug clearance factors. Given 05/28/2019 8:36 PM CUSTOMER SERVICE MANAGER 5 mg atorvastatin tablet 40 mg (LIPITOR) Given 05/29/2019 8:23 AM CUSTOMER SERVICE MANAGER 40 mg 40 mg, oral, Daily, First dose on Mon05/27/19 at 0900 Given 05/28/2019 9:08 AM CUSTOMER SERVICE MANAGER 40 mg Given 05/27/2019 9:59 AM CUSTOMER SERVICE MANAGER 40 mg docusate sodium capsule 100 mg (COLACE) 100 mg, oral, 2 times daily PRN, constip ation, Starting on Mon05/26/19 at 2112, Do NOT crush or chew. famotidine tablet 40 mg (PEPCID) Given 05/28/2019 8:36 PM CUSTOMER SERVICE MANAGER 40 mg 40 mg, oral, Daily at bedtime, First dose on Mon05/27/19 at 2100, For 347 days, Drug Monitoring Program: Pharmacist to adjust medication dosing based on indication and drug clearance factors. Given 05/27/2019 8:42 PM CUSTOMER SERVICE MANAGER 40 mg heparin (porcine) 1,000 unit/mL Given 05/28/2019 3:47 PM CUSTOMER SERVICE MANAGER 5,0 00 Units injection As needed, Starting on Mon05/28/19 at 1547, Intraprocedure (CV) iohexoL 350 mg iodine/mL solution (OMNIP AQUE) Given 05/28/2019 4:02 PM CUSTOMER SERVICE MANAGER 50 mL As needed, Starting on Mon05/28/19 at 1602, Intraprocedure (CV) levothyroxine tablet 100 mcg (SYNTHROID, Given 05/29/2019 6:45 A M CUSTOMER SERVICE MANAGER 100 mcg LEVOTHROID) 100 mcg, oral, Daily before breakfast, First dose on Mon05/27/19 at 0700 Given 05/28/2019 9:08 AM CUSTOMER SERVICE MANAGER 100 mcg Given 05/27/2019 6:08 AM CUSTOMER SERVICE MANAGER 100 mcg lidocaine 10 mg/mL (1 %) injection Given 05/28/2019 3:35 PM CUSTOMER SERVICE MANAGER 2 mL Right Wrist (XYLOCAINE) As needed, Starting on Mon05/28/19 at 1535, Intraprocedure (CV) lisinopriL tablet 2.5 mg (PRINIVIL,ZESTR IL) Given 05/29/2019 8:23 AM CUSTOMER SERVICE MANAGER 2.5 mg 2.5 mg, oral, Daily, First dose on Mon05/28/19 at 0915 Given 05/28/2019 11:38 AM CUSTOMER SERVICE MANAGER 2.5 mg loperamide liquid 2 mg (IMODIUM A-D) Given 05/27/2019 9:32 PM CUSTOMER SERVICE MANAGER 2 mg 2 mg, oral, 3 times daily PRN, diarrhea, Starting on Mon05/27/19 at 0425 loratadine tablet 10 mg (CLARITIN) Given 05/29/2019 8:24 AM CUSTOMER SERVICE MANAGER 10 mg 10 mg, oral, Daily, First dose on Mon05/27/19 at 0900 Given 05/28/2019 9:08 AM CUSTOMER SERVICE MANAGER 10 mg Given 05/27/2019 9:59 AM CUSTOMER SERVICE MANAGER 10 mg melatonin tablet 6 mg Given 05/28/2019 8:36 PM CUSTOMER SERVICE MANAGER 6 mg 6 mg, oral, Daily at bedtime, First dose (after last modification) on Mon05/28/19 at 2100 metoprolol succinate 24 hr tablet 50 mg (TOPROL-XL) 50 mg, oral, Daily, First dose on 08/13 at 0900, Do NOT crush or chew. Tablet may be split on score if needed. metoprolol tartrate tablet 25 mg (LOPRES SOR) Given 05/29/2019 8:24 AM CUSTOMER SERVICE MANAGER 25 mg 25 mg, oral, 2 times daily, First dose on Mon05/26/19 at 2215, For 7 doses, HOLD for SBP < 100 mmHg or HR < 60 BPM Given 05/28/2019 8:36 PM CUSTOMER SERVICE MANAGER 25 mg Given 05/28/2019 9:08 AM CUSTOMER SERVICE MANAGER 25 mg nitroglycerin in D5W 100 mcg/mL syringe (for Given 05/2019 3:42 PM CUSTOMER SERVICE MANAGER 200 mcg intra-arterial use only) As needed, Starting on Mon05/28/19 at 1542, Intraprocedure (CV) pantoprazole DR tablet 40 mg (PROTONIX) Given 05/29/2019 8:24 AM CUSTOMER SERVICE MANAGER 40 mg 40 mg, oral, 2 times daily, First dose on Mon05/27/19 at 0900, Swallow whole. Do NOT crush, chew, or split tablet. Given 05/28/2019 8:36 PM CUSTOMER SERVICE MANAGER 40 mg Given 05/28/2019 9:09 AM CUSTOMER SERVICE MANAGER 40 mg sodium chloride 0.9 % injection 10 mL 10 mL, intravenous, As needed, line care, Starting on Mon05/26/19 at 2112, Peripheral Intravenous Catheter and Rapid [...] injection 3 mL Given 05/29/2019 8:30 AM CUSTOMER SERVICE MANAGER 3 mL 3 mL, intravenous, Every 12 hours scheduled, First dose on Mon05/27/19 at 0900, Peripheral Intravenous Catheter and Rapid Infusion Catheter, when no infusion to maintain patency Given 05/28/2019 8:30 PM CUSTOMER SERVICE MANAGER 3 mL Given 05/28/2019 9:10 AM CUSTOMER SERVICE MANAGER 3 mL sucralfate suspension 1 g (CARAFATE) Given 05/29/2019 8:24 AM CUSTOMER SERVICE MANAGER 1 g 1 g, oral, 3 times daily after meals, First dose on Mon05/27/19 at 0900 Given 05/28/2019 8:01 PM CUSTOMER SERVICE MANAGER 1 g Given 05/27/2019 7:15 PM CUSTOMER SERVICE MANAGER 1 g sulfur hexafluoride microspheres injection Given 05/27/2019 3:47 PM CUSTOMER SERVICE MANAGER 2 mL (LUMASON) intravenous, As needed, contrast, Starting on Mon05/27/19 at 1529, See protocol. Reconstitute each 25 mg vial with 5 mL NS. tamsulosin 24 hr capsule 0.4 mg (FLOMAX) Given 05/28/2019 8:36 PM CUSTOMER SERVICE MANAGER 0.4 mg 0.4 mg, oral, Daily at bedtime, First dose on Mon05/26/19 at 2145, Swallow whole. Do NOT crush, chew or open capsule. Given 05/27/2019 8:42 PM CUSTOMER SERVICE MANAGER 0.4 mg Given 05/26/2019 10:37 PM CUSTOMER SERVICE MANAGER 0.4 mg venlafaxine XR 24 hr capsule 150 mg Given 05/29/2019 8:24 AM CUSTOMER SERVICE MANAGER 150 mg (EFFEXOR-XR) 150 mg, oral, Daily with breakfast, First dose (after last modification) on Mon05/28/19 at 0800, Swallow whole. Do NOT crush, chew or open capsule. Given 05/28/2019 9:08 AM CUSTOMER SERVICE MANAGER 150 mg vit C,J-Si-ndguq-lutein-zeaxan per capsule Given 05/28 8:24 AM CUSTOMER SERVICE MANAGER 1 capsule 1 capsule (AREDS 2) 1 capsule, oral, Daily, First dose on Mon05/27/19 at 0900 Given 05/28/2019 9:08 AM CUSTOMER SERVICE MANAGER 1 capsule Given 05/27/2019 9:59 AM CUSTOMER SERVICE MANAGER 1 capsule documented in this encounter Active and Recently Administered Medications Times are shown in CUSTOMER SERVICE MANAGER. Scheduled Medication Order 05/27/2019 05/28/2019 05/29/2019 apixaban tablet 5 mg (ELIQUIS) 2035 (Given - Pro vider: Hammad Zambrano, R.N.) 0824 (Given - Provider: Gaudencio Jenkins R.N.) 5 mg, oral, 2 times daily, First dose on Mon05/28/19 at 2100, Drug Monitoring Program: Pharmacist to adjust medication dosing based on indication and drug clearance factors. aspirin chewable tablet 324 mg (COMPLETED) 1620 (Given - Provider: Hernandez Gray R.N., CCRN) 324 mg, oral, Once, Mon05/27/19 at 1630, For 1 dose, Preprocedure (CV) aspirin chewable tablet 324 mg (COMPLETED) 1431 (Given - Provider: Mavis Sage R.N.) 324 mg, oral, Once, Mon05/28/19 at 1445, For 1 dose, Preprocedure (CV) atorvastatin tablet 40 mg (LIPITOR) 0959 (Given - Prov ider: Gaudencio Jenkins R.N.)1606 ([facility] Hold - Provider: Transfer Provider, Automatic - Reason: Patient not available)1825 ([facility] Unhold - Provider: Transfer Provider, Automatic) 0908 (Given - Provider: Yael Prather R.N.)1415 ([facility] Hold - Provider: Transfer Provider, Automatic - Reason: Patient not available)1657 ([facility] Unhold - Provider: Transfer Provider, Automatic) 0823 (Given - Provider: Gaudencio arellano R.NCarey) 40 mg, oral, Daily, First dose on Mon05/27/19 at 0900 famotidine tablet 40 mg (PEPCID) 1606 ([facility] Hold - Prov ider: Transfer Provider, Automatic - Reason: Patient not available)1825 ([facility] Unhold - Provider: Transfer Provider, Automatic)2042 (Given - Provider: Carla Romero R.N.) 1415 ([facility] Hold - Provider: Transfer Provider, Automatic - Reason: Patient not available)1657 ([facility] Unhold - Provider: Transfer Provider, Automatic)203 (Given - Provider: Hammad Zambrano R.N.) 40 mg, oral, Daily at bedtime, First dos e on Mon05/27/19 at 2100, For 347 days, Drug Monitoring Program: Pharmacist to adjust medication dosing based on indication and drug clearance factors. furosemide injection 20 mg (LASIX) (COMPLETED) 1850 (G iven - Provider: Gaudencio Jenkins R.NCarey) 20 mg, intravenous, Once, Mon05/27/19 at 1815, For 1 dose, Adults: Doses less than 120 mg: IV push over 20 mg/minute. Doses 120 mg or greater: IVPB at 4 mg/minute. Peds/Neonates: Doses less than 120 mg o kartik 0.5 mg/kg/minute. Doses 120 mg or greater: IVPB at 4 mg/zora te. furosemide injection 20 mg (LASIX) (COMPLETED) 113 (Given - Provider: Yael Prather RCareyNCarey) 20 mg, intravenous, Once, Mon05/28/19 at 0915, For 1 dose, Adults: Doses less than 120 mg: IV push over 20 mg/minute. Doses 120 mg or greater: IVPB at 4 mg/minute. Peds/Neonates: Doses less than 120 mg o kartik 0.5 mg/kg/minute. Doses 120 mg or greater: IVPB at 4 mg/zora te. furosemide injection 20 mg (LASIX) (COMPLETED) 0645 (Given - Provider: Hammad Zambrano RTanisha) 20 mg, intravenous, Once, Mon05/29/19 at 0600, For 1 dose, Adults: Doses less than 120 mg: IV push over 20 mg/minute. Doses 120 mg or greater: IVPB at 4 mg/minute. Peds/Neonates: Doses less than 120 mg o kartik 0.5 mg/kg/minute. Doses 120 mg or greater: IVPB at 4 mg/zora te. levothyroxine tablet 100 mcg (SYNTHROID, LEVOTHROID) 0 608 (Given - Provider: Donna Horta RCareyNCarey)1606 ([facility] Hold - Provider: Transfer Provider, Automatic - Reason: Patient not available)1825 ([facility] Unhold - Provider: Transfer Provider, Automatic) 0908 (Given - Provider: Yael paris R.N.)1415 ([facility] Hold - Provider: Transfer Provider, Automatic - Reason: Patient not available)1657 ([facility] Unhold - Provider: Transfer Provider, Automatic) 0645 (Given - Provider: Hammad Zambrano RTanisha) 100 mcg, oral, Daily before breakfast, First dose on Mon05/27/19 at 0700 lisinopriL tablet 2.5 mg (PRINIVIL,ZESTRIL) 1138 (Given - Provider: Yael Prather RTanisha)1415 ([facility] Hold - Provider: Transfer Provider, Automatic - Reason: Patient not available)1657 ([facility] Unhold - Provider: Transfer Provider, Automatic) 0823 (Given - Provider: Gaudencio arellano R.NCarey) 2.5 mg, oral, Daily, First dose on Mon05/28/19 at 0915 loratadine tablet 10 mg (CLARITIN) 0959 (Given - Provi bakari: Gaudencio Jenkins RCareyN.)1606 ([facility] Hold - Provider: Transfer Provider, Automatic - Reason: Patient not available)1825 ([facility] Unhold - Provider: Transfer Provider, Automatic) 0908 (Given - Provider: Yael Prather R.N.)1415 ([facility] Hold - Provider: Transfer Provider, Automatic - Reason: Patient not available)165 ([facility] Unhold - Provider: Transfer Provider, Automatic) 0824 (Given - Provider: Gaudencio arellano R.NCarey) 10 mg, oral, Daily, First dose on 05/27/19 at 0900 melatonin tablet 3 mg (CANCELED) 1606 ([facility] Hold - Prov ider: Transfer Provider, Automatic - Reason: Patient not available)182 ([facility] Unhold - Provider: Transfer Provider, Automatic)224 (Given - Provider: Carla Romero R.N. - Comment: Pt refused med earlier) 141 ([facility] Hold - Provider: Transfer Prov ider, Automatic - Reason: Patient not available)165 ([facility] Unhold - Provider: Transfer Provider, Automatic) 3 mg, oral, Daily at bedtime, First dose on 05/26/19 at 2145 melatonin tablet 6 mg 2035 (Given - Provider: Irvin Zambrano R.NCarey) 6 mg, oral, Daily at bedtime, First dose (after last modification) on Tu05/28/19 at 2100 metoprolol succinate 24 hr tablet 50 mg (TOPROL-XL) 50 mg, oral, Daily, First dose on Loly 05/30/19 at 0900, Do NOT crush or chew. Tablet may be split on score if needed. metoprolol tartrate tablet 25 mg (LOPRESSOR) 0959 (Giv en - Provider: Gaudencio Jenkins RTanisha)1606 ([facility] Hold - Provider: Transfer Provider, Automatic - Reason: Patient not available)1825 ([facility] Unhold - Provider: Transfer Provider, Automatic)204 (Given - Provider: Carla Romero RTanisha) 0908 (Given - Provider: Yael Prather RCareyNCarey)1415 ([facility] Hold - Provider: Transfer Provider, Automatic - Reason: Patient not available)165 ([facility] Unhold - Provider: Transfer Provider, Automatic)203 (Given - Provider: Hammad Zambrano R.N.) 0824 (Given - Provider: Gaudencio Jenkins R.N.) 25 mg, oral, 2 times daily, First dose o n 05/26/19 at 2215, For 7 doses, HOLD for SBP < 100 mmHg or HR < [address] tablet 40 mg (PROTONIX) 0959 (Given - Provider: Gaudencio Jenkins R.N.)1606 ([facility] Hold - Provider: Transfer Provider, Automatic - Reason: Patient not available)1825 ([facility] Unhold - Provider: Transfer Provider, Automatic)2041 (Given - Provider: Carla Romero R.N.) 0909 (Given - Provider: Yael Prather R.N.)1415 ([facility] Hold - Provider: Transfer Provider, Automatic - Reason: Patient not available)165 ([facility] Unhold - Provider: Transfer Provider, Automatic)2035 (Given - Provider: Hammad Zambrano R.N.) 0824 (Given - Provider: Gaudencio Jenkins R.N.) 40 mg, oral, 2 times daily, First dose o n 05/27/19 at 0900, Swallow whole. Do NOT crush, chew, or split tablet. potassium chloride ER tablet 40 mEq (KLORCON/K-TAB) (COMPLETED) 1500 (Given - Provider: Gaudencio Jenkins R.N.) 40 mEq, oral, Once, 05/29/19 at 1430, For 1 dose, Swallow whole. Do NOT crush, chew, or split tablet. sodium chloride 0.9 % injection 3 mL 1001 (Given - Pro vider: Gaudencio Jenkins R.N.)1606 ([facility] Hold - Provider: Transfer Provider, Automatic - Reason: Patient not available)1825 ([facility] Unhold - Provider: Transfer Provider, Automatic) 0910 (Given - Provider: Yael Prather RCareyNCarey)1415 ([facility] Hold - Provider: Transfer Provider, Automatic - Reason: Patient not available)165 ([facility] [facility] - Provider: Transfer Provider, Automatic)2030 (Given - Provider: Hammad Zambrano R.N.) 0830 (Given - Provider: Gaudencio Jenkins R.N.) 3 mL, intravenous, Every 12 hours schedu led, First dose on 05/27/19 at 0900, Peripheral Intravenous Catheter and Rapid Infusion Catheter, when no infusion to maintain patency 2042 (Not Given - Provider: Carla mckinley R.N. - Reason: Order parameters not met - Comment: PIV currently infusing with Heparin) sucralfate suspension 1 g (CARAFATE) 1003 (Not Given - Provider: Gaudencio Jenkins R.N. - Reason: Patient/family refused)1606 (MAR Hold - Provider: Transfer Provider, Automatic - Reason: Patient not available)1800 (Dose Auto Held - Provider: Transfer Provider, Automatic) 0910 (Not Given - Provider: Yael Prather RCareyNCarey - Reason: Patient/family refused - Comment: npo states only takes with foods)1405 (Not Given - Provider: Yael Prather R.NCarey - Reason: Patient/family refused - Comment: pt npo and doesn't want) 0824 (Given - Provider: Gaudencio Jenkins RTanisha)1300 (Not Given - Provider: Gaudencio Jenkins R.N. - Reason: Other) 1 g, oral, 3 times daily after meals, First dose on Mo n 05/27/19 at 0900 1825 ([facility] - Provider: Transfer Provider, Automatic)1915 (Given - Provider: Carla Romero R.N. - Comment: Pt finished eating now) 141 (MA[facility] Hold - Provider: Transfer Provider, Automatic - Reason: Patient not available)1656 ([facility] - Provider: Transfer Provider, Automatic)2000 (Given - Provider: Hammad Zambrano R.N.) tamsulosin 24 hr capsule 0.4 mg (FLOMAX) 1606 ([facility]Y Hol d - Provider: Transfer Provider, Automatic - Reason: Patient not available)1825 ([facility] - Provider: Transfer Provider, Automatic)204 (Given - Provider: Carla Romero R.N.) 1415 ([facility] Hold - Provider: Transfer Provider, Automatic - Reason: Patient not available)165 ([facility] - Provider: Transfer Provider, Automatic)2035 (Given - Provider: Hammad Zambrano RCareyNCarey) 0.4 mg, oral, Daily at bedtime, First do se on 3/1/20 at 2145, Swallow whole. Do NOT crush, chew or open capsule. venlafaxine XR 24 hr capsule 150 mg (EFFEXOR-XR) 0908 (Given - Provider: Yael Prather RCareyNCarey)1415 (MAR Hold - Provider: Transfer Provider, Automatic - Reason: Patient not available)1657 ([facility] - Provider: Transfer Provider, Automatic) 0824 (Given - Provider: Gaudencio arellano R.NCarey) 150 mg, oral, Daily with breakfast, Firs t dose (after last modification) on Mon05/28/19 at 0800, Swallow whole. Do NOT crush, chew or open capsule. venlafaxine XR 24 hr capsule 187.5 mg (EFFEXOR-XR) (CA NCELED) 0959 (Given - Provider: Gaudencio Jenkins R.N.)1606 ([facility] Hold - Provider: Transfer Provider, Automatic - Reason: Patient not available)1825 ([facility] - Provider: Transfer Provider, Automatic) 187.5 mg, oral, Daily with breakfast, Fi rst dose on Mon05/27/19 at 0800, Swallow whole. Do NOT crush, chew or open capsule. vit C,V-Lm-wfwxb-lutein-zeaxan per capsule 1 capsule ( AREDS 2) 0959 (Given - Provider: Gaudencio Jenkins RIsidra.)1606 ([facility] Hold - Provider: Transfer Provider, Automatic - Reason: Patient not available)1825 ([facility] - Provider: Transfer Provider, Automatic) 0908 (Given - Provider: Yael paris, R.N.)1415 ([facility] Hold - Provider: Transfer Provider, Automatic - Reason: Patient not available)1657 ([facility] - Provider: Transfer Provider, Automatic) 0824 (Given - Provider: Gaudencio Jenkins RCareyNCarey) 1 capsule, oral, Daily, First dose on Mon05/27/19 at 0900 Continuous Medication Order 05/27/2019 05/28/2019 05/29/2019 heparin (porcine) 100 Units/mL in D5W 250 mL infusion (CANCELED) 0602 (Rate/Dose Change - Provider: Donna Horta RTanisha)2132 (New Bag - Provider: Carla Romero R.N.)2300 [...] docusate sodium capsule 100 mg (COLACE) 1606 ([facility] Hold - Provider: Transfer Provider, Automatic - Reason: Patient not available)1825 ([facility] - Provider: Transfer Provider, Automatic) 1415 ([facility] Hold - Provider: Transfer Prov ider, Automatic - Reason: Patient not available)1657 ([facility] - Provider: Transfer Provider, Automatic) 100 mg, oral, 2 times daily PRN, constip ation, Starting 05/26/19 at 2112, Do NOT crush or chew. heparin (porcine) 1,000 unit/mL injection 2,400 Units (CANCELED) 0608 (Given - Provider: Donna Horta RCareyN.) 2,400 Units (rounded from 2,424 Units = 30 Units/kg ? 80.8 kg Dosing weight), intravenous, As needed, antiXa 0.1-0.19, Starting 05/26/19 at 2205, Intensity type: Moderate, Anti-Xa < 0.1: Loading D ose (Units/kg): 60, Anti-Xa 0.1-0.19: Lo ading Dose (Units/kg): 30, Anti-Xa > 0.19: Loading Dose (Units/kg): No Loading Dose heparin (porcine) 1,000 unit/mL injection (CANCELED) 1547 (Given - Provider: Espinoza Joyner, R.N.) As needed, Starting 05/28/19 at 1547, Intraprocedure (CV) iohexoL 350 mg iodine/mL solution (OMNIPAQUE) (CANCELED) 1602 (Given - Provider: Cabrera Chavarria M.D.) As needed, Starting 05/28/19 at 1602, Intraprocedure (CV) lidocaine 10 mg/mL (1 %) injection (XYLOCAINE) (CANCELED) 1535 (Given - Provider: Cabrera Chavarria M.D.) As needed, Starting 05/28/19 at 1535, Intraprocedure (CV) loperamide liquid 2 mg (IMODIUM A-D) 1606 ([facility] Hold - Provider: Transfer Provider, Automatic - Reason: Patient not available)1825 ([facility] - Provider: Transfer Provider, Automatic)2132 (Given - Provider: Carla Romero R.N.) 1415 ([facility] Hold - Provider: Transfer Provider, Automatic - Reason: Patient not available)1657 ([facility] - Provider: Transfer Provider, Automatic) 2 mg, oral, 3 times daily PRN, diarrhea, Starting 05/27/19 at 0425 nitroglycerin in D5W 100 mcg/mL syringe (for intra-arterial use only) (CANCELED) 1542 (Given - Provider: Rosalba Crowe M.D.) As needed, Starting 05/28/19 at 1542, Intraprocedure (CV) polyvinyl alcohol-povidone (PF) ophthalmic solution 1 drop (REFRESH CLASSIC) 1606 ([facility] Hold - Provider: Transfer Provider, Automatic - Reason: Patient not available)1825 ([facility] - Provider: Transfer Provider, Automatic) 1415 ([facility] Hold - Provider: Transfer Provider, Automatic - Reason: Patient not available)1657 ([facility] - Provider: Transfer Provider, Automatic) 1 drop, both eyes, 3 times daily PRN, dry eyes, Starting Sun 05/25 at 2138 sodium chloride 0.9 % injection 10 mL 1606 ([facility] Hold - Provider: Transfer Provider, Automatic - Reason: Patient not available)1825 ([facility] - Provider: Transfer Provider, Automatic) 1415 ([facility] Hold - Provider: Transfer Prov ider, Automatic - Reason: Patient not available)1657 ([facility] - Provider: Transfer Provider, Automatic) 10 mL, intravenous, As needed, line care , Starting 05/26/19 at 2112, Peripheral Intravenous Catheter and Rapid Infusion Catheter, prior to blood sampling, post blood transfusion or post blood sampling sodium chloride 0.9 % injection 3 mL 1606 ([facility] Hold - Provider: Transfer Provider, Automatic - Reason: Patient not available)1825 ([facility] - Provider: Transfer Provider, Automatic) 1415 ([facility] Hold - Provider: Transfer Prov ider, Automatic - Reason: Patient not available)1657 ([facility] - Provider: Transfer Provider, Automatic) 3 mL, intravenous, As needed, line care, Starting 05/26/19 at 2112, Prior to and following infusion and between multiple consecutive infusions: sodium chloride 0.9 % injection sulfur hexafluoride microspheres injection (LUMASON) 1 547 (Given - Provider: Velvet Delarosa R.N., CCRN)1606 ([facility] Hold - Provider: Transfer Provider, Automatic - Reason: Patient not available)1825 ([facility] - Provider: Transfer Provider, Automatic) 1415 ([facility] Hold - Provider: Transfer Prov ider, Automatic - Reason: Patient not available)1657 ([facility] - Provider: Transfer Provider, Automatic) intravenous, As needed, contrast, Starti ng Mon 05/27/19 at 1529, See protocol. Reconstitute each 25 mg vial with 5 mL NS. documented in this encounter
--- OUTSIDE RECORDS SUMMARY | 2022-01-16 15:57 | XMS_ITS | Encounter Summary ---
:1935 Author Organization [facility] Address [address] [place] [address] Care Team Providers Name Role Phone Unavailable Primary Care Provider Unavailable Encounter Details Date Type Department Care Team Description 05/27/2019 Surgery Division of Cardiovascular Dominik Crowe, Not Performed Diseases in Bryan Ramirez Procedure Aborted [place] [address] [address] [facility] [address] [place] [id number] [phone] Social History Tobacco Use Types Packs/Day Years [...] More than 4 times per year 09/25/2021 confucianist services? Do you belong to any clubs [...] Sign Reading Time Taken Comments Blood Pressure 119/82 05/27/2019 4:16 PM DIRECTOR WORK Pulse 82 05/27/2019 4:19 PM DIRECTOR WORK Temperature 36.9 ??C (98.4 ??F) 05/26/2019 8:30 PM DIRECTOR WORK Respiratory Rate 19 05/27/2019 2:00 PM DIRECTOR WORK Oxygen Saturation 95% 05/27/2019 4:19 PM DIRECTOR WORK Inhaled Oxygen Concentration - - Weight 79.5 kg (175 lb 4.3 oz) 05/27/2019 6:15 AM DIRECTOR WORK Height 179 cm (5' 10.47) 05/26/2019 8:30 PM DIRECTOR WORK Body Mass Index 24.22 05/26/2019 8:30 PM DIRECTOR WORK documented in this encounter Discharge Summaries Tracey Castro APRN, C.N.P. - 05/29/2019 2:28 PM CST [facility] DISCHARGE SUMMARY DATE OF ADMISSION: 05/26/2019 DATE OF DISCHARGE: 05/29/19 Discharge Provider: Marybel Herbert M.B.B.SCarey Discharge Provider Team: RST [facility] PRINCIPAL DIAGNOSIS Flutter Atrial (HCC) DISMISSAL DIAGNOSES Acute systolic congestive heart failure, EF 15-20% Paroxysmal atrial tachycardia/flutter with RVR, [id number] Mild coronary artery atherosclerosis Dilated cardiomyopathy, nonischemic [...] he was transfered to [facility] for further treatment. ?? Transthoracic echocardiogram revealed [...] Primary Care Providers: Elsewhere, Pcp (General) [address] [place] [id number] Primary Care Provider Phone Number: None Primary Care Provider Fax Number: None CTOR WORK documented in this encounter Discharge Instructions Discharge InstructionsWen Brambila - 05/29/2019 10:11 AM CST You were discharged from the [facility] Service. Please identify this service name if you call with questions after hospitalization. CTOR WORK AttachmentsThe following attachments cannot be sent through Care Everywhere. Apixaban (By mouth) (Venezuelan)Lisinopril (By mouth) (Venezuelan)Metoprolol (By mouth) (Venezuelan)Torsemide (By mouth) (Venezuelan)documented in this encounter Medications at Time of [...] peg 400-propylene glycol Administer 1 drop 0 /09/2013 (SYSTANE) 0.4-0.3 % into both eyes 4 [...] branch block 5. Gastroesophageal reflux disease 6. Vciente's esophagus 7. Esophageal adenocarcinoma, under observation 8. [...] be attempted. Remainder as per Ms. Tracey Castro APRN, GEOSPATIAL INFORMATION SCIENTIST. Summary of recommendations: 1. Up titration of GDMT as outpatient 2. Continue anticoagulation 3. Discharge today Electronically signed by: Shalonda Rodriguez 05/29/19 12:26 PM DIRECTOR WORK CTOR WORK Yasmine Randle R.R.T., L.R.T. - 05/28/2019 10:58 PM CST Non-Invasive Support: BPAP/CPAP Interface: Nasal prongs Patient on CPAP Autoset 4-12 cm H20 for the night. CTOR WORK Marybel Herbert M.B.B.S. - 05/28/2019 1:17 PM [...] we will gently diurese. Remainder as per Carey Reseefinesserussel. Summary of recommendations: 1. CT head plus or minus neurology consultation 2. Coronary angiography 3. Lisinopril. Electronically signed by: Shalonda Rodriguez 05/28/19 1:21 PM DIRECTOR WORK CTOR WORK Jennie Aguilar P.A.-C., M.S. - 05/28/2019 9:34 AM CST [facility] CARDIOLOGY INPATIENT PROGRESS NOTE SUBJECTIVE Mr. Franz [...] Paroxysmal atrial tachycardia/flutter with rapid ventricular response, [id number] #3 Mild coronary artery atherosclerosis #4 Dilated [...] P.A.-C., M.S. 05/28/19 RST [facility] ADDENDUM: CT Head was completed showing [...] transition to apixaban for anticoagulation. Nadiya Rosas R.RCherie. - 05/27/2019 11:38 PM CST The patient is refusing pap at this time. The RN is aware. Jennie Lopez P.A.-C., M.S. - 05/27/2019 9:37 AM CST [facility] CARDIOLOGY INPATIENT PROGRESS NOTE SUBJECTIVE Mr. [...] atrial tachycardia/flutter with rapid ventricular response #2 [id number] #3 Dilated cardiomyopathy, suspect ischemic, EF 22% [...] self care Jennie Aguilar P.A.-C., M.S. 05/27/19 [facility] CTOR WORK documented in this encounter H&P Notes Marybel [...] he had been undergoing EGD here at [place] to monitor his Vicente's esophagus on 04/24/19 [...] 22%. This prompted cardiology referral here at [place], and he saw Dr. Louie Borrero on [...] who is now admit radha from the [place] ED with atrial fibrillation/flutter with rapid ventricular response. #1 Paroxysmal atrial fibrillation/flutter with rapid ventricular response #2 [id number] #3 Dilated cardiomyopathy, suspect ischemic, EF 22% [...] the outside hospital. His initial ECG from [place] appears consistent with a likely atrial flutter with a rate of nearly 150 bpm. Rates slowed with initial diltiazem dosing. Here, rates have varied between 80s-90s up to 120. He has been vary stable and essentially asymptomatic since arrival here. I will plan the following: PLAN: - Initiate therapeutic heparin, moderate intensity, given [id number] of 4; he will need oral anticoagulation [...] given likelycoronary disease given evidence of recent SC - lipid panel here on admission shows [...] CODE STATUS: FULL CODE; discussed on admission CTOR WORK documented in this encounter Nursing Notes Gaudencio Jenkins RCareyN. - 05/29/2019 2:50 PM CST Shift Goals: Clinical Goals for the Shift: Patient will remain free from falls overnight Identify possible barriers to meeting goals/advancing plan of care: End of Shift Summary: met. Patient was stable to discharge CTOR WORK Hammad Zambrano R.N. - 05/29/2019 5:54 AM [...] see flow sheets and assessments for details. CTOR WORK documented in this encounter Miscellaneous Notes Hospital Course - WvchepedavidTracey johnson ACCOUNTING CONSULTANTJusto Hendrickson - 05/27/2019 5:06 PM DIRECTOR WORK Mr. Franz is an 84-year-old gentleman who [...] he was transfered to [facility] for further treatment. ?? Transthoracic echocardiogram revealed [...] setting up outpatient follow-up with Dr. Harrison. CTOR WORK documented in this encounter Plan of Treatment Scheduled Orders Name Type Priority Associated Diagnoses Order S chedule Cardiac Catheterization Cardiac Cath Routine Cardiomyopathy On ce for 1 Ischemic Occurrences starting 05/27/2019 unti l 05/27/2019 documented as of this encounter Procedures Procedure Name Priority Date/Time Associated Comments Diagnosis CBC WITHOUT Routine 05/29/2019 6:35 Results for DIFFERENTIAL, B AM DIRECTOR WORK this procedu re are in the results section. T3 Routine 05/29/2019 6:35 Results for (TRIIODOTHYRONINE), AM DIRECTOR WORK this pro cedure FREE, S are in the results section. T4 (THYROXINE), FREE, Routine 05/29/2019 6:35 Res ults for S AM DIRECTOR WORK this procedure are in the results section. BASIC METABOLIC Routine 05/29/2019 6:35 Results f or PANEL, S/P AM DIRECTOR WORK this procedure are in the results section. CARDIAC Routine 05/28/2019 4:04 Cardiomyopathy Results fo r CATHETERIZATION PM DIRECTOR WORK Ischemic this procedu re are in the results section. CARDIAC Routine 05/28/2019 4:04 Cardiomyopathy Results fo r CATHETERIZATION PM DIRECTOR WORK Ischemic this procedu re are in the results section. CT HEAD WITHOUT IV RAD - Routine 05/28/2019 Results for CONTRAST (most inpatients 10:52 AM DIRECTOR WORK this proced ure and all are in the outpatients) results section. HEPARIN LEVEL ANTI-XA Routine 05/28/2019 9:37 Res ults for ASSAY, P AM DIRECTOR WORK this procedure are in the results section. CBC WITHOUT Routine 05/28/2019 9:37 Results for DIFFERENTIAL, B AM DIRECTOR WORK this procedu re are in the results section. BASIC METABOLIC Routine 05/28/2019 9:37 Results f or PANEL, S/P AM DIRECTOR WORK this procedure are in the results section. ADULT OXYGEN THERAPY Routine 05/28/2019 8:01 AM DIRECTOR WORK ADULT OXYGEN THERAPY Routine 05/27/2019 8:01 PM DIRECTOR WORK HEPARIN LEVEL ANTI-XA Timed 05/27/2019 6:48 Res ults for ASSAY, P PM DIRECTOR WORK this procedure are in the results section. (TTE) 2D ECHO DOPPLER Routine 05/27/2019 3:55 Res ults for COLOR AND CONTRAST PM DIRECTOR WORK this proc edure are in the results section. HEPARIN LEVEL ANTI-XA Timed 05/27/2019 Result s for ASSAY, P 11:55 AM DIRECTOR WORK this procedure are in the results section. ADULT OXYGEN THERAPY Routine 05/27/2019 8:01 AM DIRECTOR WORK HEPARIN LEVEL ANTI-XA Timed 05/27/2019 4:51 Res ults for ASSAY, P AM DIRECTOR WORK this procedure are in the results section. CBC WITHOUT Routine 05/27/2019 4:51 Results for DIFFERENTIAL, B AM DIRECTOR WORK this procedu re are in the results section. CALCIUM, TOT, S/P Routine 05/27/2019 4:51 Results for AM DIRECTOR WORK this procedure are in the results section. LIPID PANEL, S STAT 05/26/2019 Results for 10:22 PM DIRECTOR WORK this procedure are in the results section. NT-PRO B-TYPE STAT 05/26/2019 Results for NATRIURETIC PEPTIDE 10:22 PM DIRECTOR WORK this pro cedure (BNP), S are in the results section. ACTIVATED PARTIAL STAT 05/26/2019 Results fo r THROMBOPLASTIN TIME 10:22 PM DIRECTOR WORK this pro cedure (APTT), P are in the results section. CBC WITH STAT 05/26/2019 Results for DIFFERENTIAL, B 10:22 PM DIRECTOR WORK this procedu re are in the results section. THYROID-STIMULATING STAT 05/26/2019 Results for HORMONE-SENSITIVE 10:22 PM DIRECTOR WORK this proce dure (S-TSH) are in the results section. PHOSPHORUS STAT 05/26/2019 Results for (INORGANIC), S 10:22 PM DIRECTOR WORK this procedur e are in the results section. MAGNESIUM, S STAT 05/26/2019 Results for 10:22 PM DIRECTOR WORK this procedure are in the results section. BASIC METABOLIC STAT 05/26/2019 Results for PANEL, S/P 10:22 PM DIRECTOR WORK this procedure are in the results section. ADULT OXYGEN THERAPY Routine 05/26/2019 9:33 PM DIRECTOR WORK ADULT OXYGEN THERAPY Routine 05/26/2019 9:33 PM DIRECTOR WORK ECG Routine 05/26/2019 9:14 Results for PM DIRECTOR WORK this procedure are in the results section. documented in this encounter Results (ABNORMAL) CBC without Differential (05/29/2019 6:35 AM DIRECTOR WORK) [facility] gist Method Time Signature Hemoglobin 11.9 (L) 13.2 - 05/29/2019 DTL 16.6 g/dL 7:46 AM DIRECTOR WORK Hematocrit 36.9 (L) 38.3 - 05/29/2019 DTL 48.6 % 7:46 AM DIRECTOR WORK Erythrocytes 4.15 (L) 4.35 - 05/29/2019 DTL 5.65 7:46 AM DIRECTOR WORK x10(12)/L MCV 88.9 78.2 - 05/29/2019 DTL 97.9 fL 7:46 AM DIRECTOR WORK RBC Distrib Width 13.6 11.8 - 05/29/2019 DTL 14.5 % 7:46 AM DIRECTOR WORK Platelet Count 190 135 - 317 05/29/2019 DTL x10(9)/L 7:46 AM DIRECTOR WORK Leukocytes 6.8 3.4 - 9.6 05/29/2019 DTL x10(9)/L 7:46 AM DIRECTOR WORK Specimen Anatomical Collection Method Collection Time Receive d Time (Source) Location / / Volume Laterality Blood (Blood, 05/29/2019 6:35 AM 05/29/19 20 7:32 Venous) DIRECTOR WORK AM DIRECTOR WORK Jennie Aguilar P.A.-C., M.S. LAB BLOOD ADD-ON Performing Organization Address City/State/ZIP Code Phon e Number [facility] - [address] [place], [place] [address] [facility] [place] [address] Laboratories-[facility] [address] (ABNORMAL) Basic Metabolic Panel (05/29/2019 6:35 AM DIRECTOR WORK) P athologist Signature Potassium, S 3.8 3.6 - 5.2 05/29/2019 DTL mmol/L 8:46 AM DIRECTOR WORK Sodium, S 143 135 - 145 05/29/2019 DTL mmol/L 8:46 AM DIRECTOR WORK Chloride, S 104 98 - 107 05/29/2019 DTL mmol/L 8:46 AM DIRECTOR WORK Bicarbonate, S 26 22 - 29 05/29/2019 DTL mmol/L 8:46 AM DIRECTOR WORK Anion Gap 13 7 - 15 05/29/2019 DTL 8:46 AM DIRECTOR WORK BUN (Blood Urea 16 8 - 24 05/29/2019 DTL Nitrogen), S mg/dL 8:46 AM DIRECTOR WORK Creatinine 1.20 0.74 - 05/29/2019 DTL 1.35 mg/dL 8:46 AM DIRECTOR WORK eGFR-Non 55 (L) >=60 05/29/2019 DTL Black/ mL/min/BSA 8:46 AM DIRECTOR WORK Turkmen Comment: ----ADDITIONAL INFORMATION---- Estimated GFR calculated using the 2009 CKD_EPI creatinine equation. eGFR-Black/ 64 >=60 mL/min/BSA 2019 8:46 AM DIRECTOR WORK DTL Comment: ----ADDITIONAL INFORMATION---- Estimated GFR calculated using the 2009 CKD_EPI creatinine equation. Calcium, Total, S 8.3 (L) 8.8 - 10.2 mg/dL 05/29/2019 8:46 AM DIRECTOR WORK DTL Glucose, S 91 70 - 140 mg/dL 05/29/2019 8:46 AM DIRECTOR WORK D TL Specimen Anatomical Collection Method Collection Time Receive d Time (Source) Location / / Volume Laterality Blood (Blood, 05/29/2019 6:35 AM 05/29/19 8:14 Venous) DIRECTOR WORK AM DIRECTOR WORK Jennie Aguilar P.A.-C., M.S. LAB BLOOD ADD-ON Performing Organization Address City/State/ZIP Code Phon e Number [facility] - [address] [place], [place] [address] [facility] [place] [address] Laboratories-[facility] [address] (ABNORMAL) T3 (Triiodothyronine), Free (05/29/2019 6:35 AM DIRECTOR WORK) P athologist Signature T3 2.2 (L) 2.8 - 4.4 05/29/2019 [facility] (Triiodothyron pg/mL 11:13 AM DIRECTOR WORK ine), Free, S Specimen Anatomical Collection Method Collection Time Receive d Time (Source) Location / / Volume Laterality Blood (Blood, 05/29/2019 6:35 AM 05/29/19 20 Venous) DIRECTOR WORK 10:13 AM DIRECTOR WORK Jennie Aguilar P.A.-C., M.S. LAB BLOOD ADD-ON Performing Organization Address City/[facility]/ZIP Code Phon e Number [facility] [address] [place], [place] [address] [facility] [place] [address] Laboratory Medicine and Pathology [address] [place] T4 (Thyroxine), Free (05/29/2019 6:35 AM DIRECTOR WORK) athologist Signature T4 (Thyroxine), 1.5 0.9 - 1.7 05/29/2019 [facility] Free, S ng/dL 8:46 AM DIRECTOR WORK Specimen Anatomical Collection Method Collection Time Receive d Time (Source) Location / / Volume Laterality Blood (Blood, 05/29/2019 6:35 AM 05/29/19 20 8:14 Venous) DIRECTOR WORK AM DIRECTOR WORK Jennie Aguilar P.A.-C., M.S. LAB BLOOD ADD-ON Performing Organization Address City/[facility]/ZIP Code Phon e Number [facility] - [address] [place], [place] [address] [place] [address] Laboratories-[facility] [address] CORONARY ANGIOGRAPHY, LEFT HEART CATHETERIZATION (05/28/2019 4:04 PM DIRECTOR WORK) Anatomical Region Laterality Modality X-Ray Angiography Specimen (Source) Anatomical Collection Method Collection Time Re ceived Time Location / / Volume Laterality 05/28/2019 3:32 PM DIRECTOR WORK Narrative 05/28/2019 4:10 PM DIRECTOR WORK For the complete report, see the Order-L [...] 50mL For the complete report, see the [place] Documents. Procedure Note Rosalba Crowe M.D. - 05/28/2019Format ting of this note might be different from the original. For the complete report, see the [facility] cell Storage Documents. PROCEDURE TYPES 1. CORONARY ANGIOGRAPHY 2. [...] For the complete report, see the [facility] Documents. Jennie Monica Aguilar P.A.-C., M.S. CV CARDIAC CATH PROCE DURES CT Head without IV Contrast (05/28/2019 10:52 AM DIRECTOR WORK) Anatomical Region Laterality Modality Head, Neuroradiology RST LOS, N/A Computed T omography, Computed Neuroradiology ARZ LOS, Neuroradiology T omography FLA LOS Specimen (Source) Anatomical Collection Method Collection Time Re ceived Time Location / / Volume Laterality 05/28/2019 10:47 AM DIRECTOR WORK Impressions 05/28/2019 11:13 AM DIRECTOR WORK Slight interval increase in size of heavily calcified right frontal parafalcine meningioma. Otherwise, simil ar extent of associated right frontal lobe mass effect, with attenuation the f rontal horn of the right lateral ventricle as well as associated vasogeni c edema. Narrative 05/28/2019 11:13 AM DIRECTOR WORK EXAM: CT HEAD WITHOUT IV CONTRAST COMPARISON: [...] as associated vasogeni c edema. Jennie Aguilar P.A.-C. M.S. IMG CT PROCEDURES Heparin Anti-Xa Assay (05/28/2019 9:37 AM DIRECTOR WORK) P athologist Signature Heparin 0.47 IU/mL 05/28/2019 DTL Anti-Xa, P 10:19 AM DIRECTOR WORK Comment: UFH therapeutic range: ?? 0.30-0.70 IU/mL [...] (Blood, 05/28/2019 9:37 AM 05/28/19 20 Venous) DIRECTOR WORK 10:04 AM DIRECTOR WORK Jennie Aguilar P.A.-C., M.S. LAB BLOOD NON ADD-ON Performing Organization Address City/State/ZIP Code Phon e Number [facility] - [address] [place] [address] Laboratories-[facility] 200 [facility] (ABNORMAL) Basic Metabolic Panel (05/28/2019 9:37 AM DIRECTOR WORK) P athologist Signature Potassium, S 4.1 3.6 - 5.2 05/28/2019 DTL mmol/L 11:18 AM DIRECTOR WORK Sodium, S 142 135 - 145 05/28/2019 DTL mmol/L 11:18 AM DIRECTOR WORK Chloride, S 105 98 - 107 05/28/2019 DTL mmol/L 11:18 AM DIRECTOR WORK Bicarbonate, S 26 22 - 29 05/28/2019 DTL mmol/L 11:18 AM DIRECTOR WORK Anion Gap 11 7 - 15 05/28/2019 DTL 11:18 AM DIRECTOR WORK BUN (Blood Urea 14 8 - 24 05/28/2019 DTL Nitrogen), S mg/dL 11:18 AM DIRECTOR WORK Creatinine 1.08 0.74 - 05/28/2019 DTL 1.35 mg/dL 11:18 AM DIRECTOR WORK eGFR-Non 63 >=60 05/28/2019 DTL Black/ mL/min/BSA 11:18 AM DIRECTOR WORK Turkmen Comment: ----ADDITIONAL INFORMATION---- Estimated GFR calculated using the 2009 CKD_EPI creatinine equation. eGFR-Black/ 72 >=60 mL/min/BSA 2019 11:18 AM DIRECTOR WORK DTL Comment: ----ADDITIONAL INFORMATION---- Estimated GFR calculated using the 2009 CKD_EPI creatinine equation. Calcium, Total, S 8.7 (L) 8.8 - 10.2 mg/dL 05/28/2019 11:1 8 AM DIRECTOR WORK DTL Glucose, S 99 70 - 140 mg/dL 05/28/2019 11:18 AM DIRECTOR WORK DTL Specimen Anatomical Collection Method Collection Time Receive d Time (Source) Location / / Volume Laterality Blood (Blood, 05/28/2019 9:37 AM 05/28/19 20 Venous) DIRECTOR WORK 10:57 AM DIRECTOR WORK Jennie Aguilar P.A.-C., M.S. LAB BLOOD ADD-ON Performing Organization Address City/[facility]/ZIP [facility] Phon e Number [facility] - [address] [address] [place] [address] Laboratories-[facility] 200 [facility] (ABNORMAL) CBC without Differential (05/28/2019 9:37 AM DIRECTOR WORK) Patholo gist Method Time Signature Hemoglobin 12.8 (L) 13.2 - 05/28/2019 DTL 16.6 g/dL 10:11 AM DIRECTOR WORK Hematocrit 40.3 38.3 - 05/28/2019 DTL 48.6 % 10:11 AM DIRECTOR WORK Erythrocytes 4.52 4.35 - 05/28/2019 DTL 5.65 10:11 AM DIRECTOR WORK x10(12)/L MCV 89.2 78.2 - 05/28/2019 DTL 97.9 fL 10:11 AM DIRECTOR WORK RBC Distrib Width 13.5 11.8 - 05/28/2019 DTL 14.5 % 10:11 AM DIRECTOR WORK Platelet Count 210 135 - 317 05/28/2019 DTL x10(9)/L 10:11 AM DIRECTOR WORK Leukocytes 6.3 3.4 - 9.6 05/28/2019 DTL x10(9)/L 10:11 AM DIRECTOR WORK Specimen Anatomical Collection Method Collection Time Receive d Time (Source) Location / / Volume Laterality Blood (Blood, 05/28/2019 9:37 AM 05/28/19 20 Venous) DIRECTOR WORK 10:03 AM DIRECTOR WORK Alfonso Jackson M.D. LAB BLOOD ADD-ON Performing Organization Address City/State/ZIP Code Phon e Number [facility] - [address] [place] [address] [place] [address] [facility] [address] [facility] Heparin Anti-Xa Assay (05/27/2019 6:48 PM DIRECTOR WORK) athologist Signature Heparin 0.41 IU/mL 05/27/2019 DTL Anti-Xa, P 7:42 PM DIRECTOR WORK Comment: UFH therapeutic range: ?? 0.30-0.70 IU/mL [...] 05/27/2019 6:48 PM 05/27/19 20 7:23 Venous) DIRECTOR WORK PM DIRECTOR WORK Jennie Aguilar P.A.-C., M.S. LAB BLOOD NON ADD-ON Performing Organization Address City/State/ZIP Code Phon e Number [facility] - [address] [place], [place] [address] [facility] [place] [address] Laboratories-[facility] 200 [facility] (TTE) 2D ECHO DOPPLER COLOR AND CONTRAST (05/27/2019 3:55 PM DIRECTOR WORK) [facility] gist Method Time Signature Ejection Fraction [...] / / Volume Laterality 05/27/2019 1:57 PM DIRECTOR WORK Impressions 05/27/2019 3:57 PM DIRECTOR WORK Intravenous Lumason ultrasound enhancement agent was administered [...] ion. For the complete report, see the Blood cell Storage Documents. Narrative 05/27/2019 3:57 PM DIRECTOR WORK For the complete report, see the [facility] cell Storage Documents. Final Impressions 1. Severely enlarged left [...] original. For the complete report, see the Blood cell Storage Documents. Final Impressions 1. Severely enlarged left [...] PROCEDURES Heparin Anti-Xa Assay (05/27/2019 11:55 AM DIRECTOR WORK) P athologist Signature Heparin 0.49 IU/mL 05/27/2019 DTL Anti-Xa, P 1:33 PM DIRECTOR WORK Comment: UFH therapeutic range: ?? 0.30-0.70 IU/mL [...] Blood (Blood, 05/27/2019 11:55 05/27/2019 Venous) AM DIRECTOR WORK 12:23 PM DIRECTOR WORK Marybel HernandezSCarey LAB BLOOD NON ADD-ON Performing Organization Address City/[facility] Phon e Number [facility] - [address] [place], [place] [address] [place] [address] Laboratories-[facility] 200 [facility] Heparin Anti-Xa Assay (05/27/2019 4:51 AM DIRECTOR WORK) P athologist Signature Heparin 0.19 IU/mL 05/27/2019 DT Anti-Xa, P 5:30 AM DIRECTOR WORK Comment: UFH therapeutic range: ?? 0.30-0.70 IU/mL [...] (Blood, 05/27/2019 4:51 AM 05/27/19 5:13 Venous) DIRECTOR WORK AM DIRECTOR WORK Marybel HernandezSCarey LAB BLOOD NON ADD-ON Performing Organization Address City/State/ZIP Code Phon e Number [facility] - [address] (ABNORMAL) CBC without Differential (05/27/2019 4:51 AM DIRECTOR WORK) Patholo gist Method Time Signature Hemoglobin 11.6 (L) 13.2 - 05/27/2019 DTL 16.6 g/dL 5:21 AM DIRECTOR WORK Hematocrit 36.5 (L) 38.3 - 05/27/2019 DTL 48.6 % 5:21 AM DIRECTOR WORK Erythrocytes 4.03 (L) 4.35 - 05/27/2019 DTL 5.65 5:21 AM DIRECTOR WORK x10(12)/L MCV 90.6 78.2 - 05/27/2019 DTL 97.9 fL 5:21 AM DIRECTOR WORK RBC Distrib Width 14.0 11.8 - 05/27/2019 DTL 14.5 % 5:21 AM DIRECTOR WORK Platelet Count 167 135 - 317 05/27/2019 DTL x10(9)/L 5:21 AM DIRECTOR WORK Leukocytes 5.1 3.4 - 9.6 05/27/2019 DTL x10(9)/L 5:21 AM DIRECTOR WORK Specimen Anatomical Collection Method Collection Time Receive d Time (Source) Location / / Volume Laterality Blood (Blood, 05/27/2019 4:51 AM 05/27/19 5:13 Venous) DIRECTOR WORK AM DIRECTOR WORK Alfonso Jackson M.D. LAB BLOOD ADD-ON Performing Organization Address City/[facility] Phon e Number [facility] - [address] [place] [address] (ABNORMAL) Calcium, Total (05/27/2019 4:51 AM DIRECTOR WORK) P athologist Signature Calcium, 8.5 (L) 8.8 - 10.2 05/27/2019 DTL Total, S mg/dL 5:50 AM DIRECTOR WORK Specimen Anatomical Collection Method Collection Time Receive d Time (Source) Location / / Volume Laterality Blood (Blood, 05/27/2019 4:51 AM 05/27/19 5:34 Venous) DIRECTOR WORK AM DIRECTOR WORK Alfonso Jackson M.D. LAB BLOOD ADD-ON Performing Organization Address City/[facility] Phon e Number [facility] - [address] D[place] [address] (ABNORMAL) APTT (Activated Partial Thromboplastin Time) (05/26/2019 10:22 PM DIRECTOR WORK) athologist Signature Activated 38 (H) 25 - 37 05/26/2019 [facility] Partial sec 10:39 PM DIRECTOR WORK Thrombopl Time, P Specimen Anatomical Collection Method Collection Time Receive d Time (Source) Location / / Volume Laterality Blood (Blood, 05/26/2019 10:22 05/26/2019 Venous) PM DIRECTOR WORK 10:29 PM DIRECTOR WORK Alfonso Jackson M.D. LAB BLOOD ADD-ON Performing Organization Address [facility] Phon e Number [facility] - [address] Lipid Panel (05/26/2019 10:22 PM DIRECTOR WORK) athologist Signature Cholesterol, 138 mg/dL 05/26/2019 DTL Total 11:17 PM DIRECTOR WORK Comment: ----REFERENCE VALUE---- Desirable: < 200 Borderline high: 200 - 239 High: > or = 240 Triglycerides 60 mg/dL 05/26/2019 11:17 PM DIRECTOR WORK DT L Comment: ----REFERENCE VALUE---- Normal: <150 Borderline high: 150-199 High: 200-499 Very high: > or =500 Cholesterol, HDL, S 52 >=40 mg/dL 05/26/2019 11:17 PM DIRECTOR WORK DTL Calculated LDL 74 mg/dL 05/26/2019 11:17 PM DIRECTOR WORK D TL Comment: ----REFERENCE VALUE---- Desirable: <100 Above Desirable: 100-129 Borderline high: 130-159 High: 160-189 Very high: > or =190 Cholesterol, Non-HDL, Calculated 86 mg/dL 020 11:17 PM DIRECTOR WORK DTL Comment: ----REFERENCE VALUE---- Desirable: <130 Above Desirable: 130-159 Borderline high: 160-189 High: 190-219 Very high: > or =220 Specimen Anatomical Collection Method Collection Time Receive d Time (Source) Location / / Volume Laterality Blood (Blood, 05/26/2019 10:22 05/26/2019 Venous) PM DIRECTOR WORK 10:39 PM DIRECTOR WORK Alfonso Jackson M.D. LAB BLOOD ADD-ON Performing Organization Address City/[facility] Phon e Number [facility] - [address] [place], [place] [address] [facility] [place] [address] Laboratories-[facility] [address] (ABNORMAL) S-TSH (Thyroid-Stimulating Hormone - Sensitive) (05/26/2019 10:22 PM DIRECTOR WORK) P athologist Signature TSH, Sensitive 7.3 (H) 0.3 - 4.2 05/26/2019 DTL mIU/L 11:17 PM DIRECTOR WORK Specimen Anatomical Collection Method Collection Time Receive d Time (Source) Location / / Volume Laterality Blood (Blood, 05/26/2019 10:22 05/26/2019 Venous) PM DIRECTOR WORK 10:39 PM DIRECTOR WORK Alfonso Jackson M.D. LAB BLOOD ADD-ON Performing Organization Address City/[facility] Phon e Number [facility] - [address] [place], [place] [address] [place] [address] Laboratories-[address] (ABNORMAL) NT-Pro B-Type Natriuretic Peptide (BNP) (05/26/2019 10:22 PM DIRECTOR WORK) P athologist Signature NT-Pro BNP 7127 (H) <=138 pg/mL 05/26/2019 DTL 11:17 PM DIRECTOR WORK Comment: NT-proBNP values less than 300 pg/mL [...] Blood (Blood, 05/26/2019 10:22 05/26/2019 Venous) PM DIRECTOR WORK 10:39 PM DIRECTOR WORK Alfonso Jackson M.D. LAB BLOOD ADD-ON Performing Organization Address City/[facility]/ZIP Code Phon e Number [facility] - [address] [place] [address] Phosphorus Inorganic (05/26/2019 10:22 PM DIRECTOR WORK) P athologist Signature Phosphorus 3.5 2.5 - 4.5 05/26/2019 DTL (Inorganic), S mg/dL 11:17 PM DIRECTOR WORK Specimen Anatomical Collection Method Collection Time Receive d Time (Source) Location / / Volume Laterality Blood (Blood, 05/26/2019 10:22 05/26/2019 Venous) PM DIRECTOR WORK 10:39 PM DIRECTOR WORK Alfonso Jackson M.D. LAB BLOOD ADD-ON Performing Organization Address [facility] Phon e Number [facility] - [address] [place] [address] (ABNORMAL) CBC with Differential, Blood (05/26/2019 10:22 PM DIRECTOR WORK) Patholo gist Method Time Signature Hemoglobin 12.0 (L) 13.2 - 05/26/2019 [facility] 16.6 g/dL 10:31 PM DIRECTOR WORK Hematocrit 37.1 (L) 38.3 - 05/26/2019 [facility] 48.6 % 10:31 PM DIRECTOR WORK Erythrocytes 4.17 (L) 4.35 - 05/26/2019 [facility] 5.65 10:31 PM DIRECTOR WORK x10(12)/L MCV 89.0 78.2 - 05/26/2019 [facility] 97.9 fL 10:31 PM DIRECTOR WORK RBC Distrib Width 13.9 11.8 - 05/26/2019 [facility] 14.5 % 10:31 PM DIRECTOR WORK Platelet Count 187 135 - 317 05/26/2019 [facility] x10(9)/L 10:31 PM DIRECTOR WORK Leukocytes 5.2 3.4 - 9.6 05/26/2019 [facility] x10(9)/L 10:31 PM DIRECTOR WORK Neutrophils 3.04 1.56 - 05/26/2019 [facility] 6.45 10:31 PM DIRECTOR WORK x10(9)/L Lymphocytes 1.51 0.95 - 05/26/2019 [facility] 3.07 10:31 PM DIRECTOR WORK x10(9)/L Monocytes 0.47 0.26 - 05/26/2019 [facility] 0.81 10:31 PM DIRECTOR WORK x10(9)/L Eosinophils 0.13 0.03 - 05/26/2019 [facility] 0.48 10:31 PM DIRECTOR WORK x10(9)/L Basophils 0.04 0.01 - 05/26/2019 [facility] 0.08 10:31 PM DIRECTOR WORK x10(9)/L Specimen Anatomical Collection Method Collection Time Receive d Time (Source) Location / / Volume Laterality Blood (Blood, 05/26/2019 10:22 05/26/2019 Venous) PM DIRECTOR WORK 10:29 PM DIRECTOR WORK Alfonso Jackson M.D. LAB BLOOD ADD-ON Performing Organization Address City/[facility] Phon e Number [facility] - [address] [facility] [address] Magnesium (05/26/2019 10:22 PM DIRECTOR WORK) athologist Signature Magnesium, S 2.2 1.7 - 2.3 05/26/2019 DTL mg/dL 11:17 PM DIRECTOR WORK Specimen Anatomical Collection Method Collection Time Receive d Time (Source) Location / / Volume Laterality Blood (Blood, 05/26/2019 10:22 05/26/2019 Venous) PM DIRECTOR WORK 10:39 PM DIRECTOR WORK Alfonso Jackson M.D. LAB BLOOD ADD-ON Performing Organization Address City/State/[facility] Phon e Number [facility] - [address] [place] [address] Basic Metabolic Panel (05/26/2019 10:22 PM DIRECTOR WORK) athologist Signature Potassium, P 4.2 3.6 - 5.2 05/26/2019 [facility] mmol/L 10:46 PM DIRECTOR WORK Sodium, P 138 135 - 145 05/26/2019 [facility] mmol/L 10:46 PM DIRECTOR WORK Chloride, P 103 98 - 107 05/26/2019 [facility] mmol/L 10:46 PM DIRECTOR WORK Bicarbonate, P 24 22 - 29 05/26/2019 [facility] mmol/L 10:46 PM DIRECTOR WORK Anion Gap, P 11 7 - 15 05/26/2019 [facility] 10:46 PM DIRECTOR WORK BUN (Blood Urea 17 8 - 24 05/26/2019 [facility] Nitrogen), P mg/dL 10:46 PM DIRECTOR WORK Creatinine 0.99 0.74 - 05/26/2019 [facility] 1.35 mg/dL 10:46 PM DIRECTOR WORK eGFR-Black/Afric 81 >=60 05/26/2019 [facility] an Turkmen mL/min/BSA 10:46 PM DIRECTOR WORK Comment: ----ADDITIONAL INFORMATION---- Estimated GFR calculated using the 2009 CKD_EPI creatinine equation. eGFR Non-Black/ 70 >=60 mL/min/BSA 05/26/2019 10:46 PM DIRECTOR WORK [facility] Comment: ----ADDITIONAL INFORMATION---- Estimated GFR calculated using the 2009 CKD_EPI creatinine equation. Calcium, Total, P 8.8 8.8 - 10.2 mg/dL 05/26/2019 10:4 6 PM DIRECTOR WORK [facility] Glucose, P 116 70 - 140 mg/dL 05/26/2019 10:46 PM DIRECTOR WORK [facility] Specimen Anatomical Collection Method Collection Time Receive d Time (Source) Location / / Volume Laterality Blood (Blood, 05/26/2019 10:22 05/26/2019 Venous) PM DIRECTOR WORK 10:29 PM DIRECTOR WORK Alfonso Jackson M.D. LAB BLOOD ADD-ON Performing Organization Address City/State/ZIP Code Phon e Number [facility] - 200 [place], [place] [address] [place] [address] Laboratories-[facility] 200 [facility] ECG 12 Lead (05/26/2019 9:14 PM DIRECTOR WORK) P athologist Signature Ventricular Rate 124 BPM MUSE ECG/Min IA Interval 136 ms MUSE QRSD Interval 150 ms MUSE QT Interval 412 ms MUSE QTC Interval 591 ms MUSE R [place] 48 degrees MUSE T Wave [place] -179 degrees MUSE Specimen Anatomical Collection Method Collection Time Receive d Time (Source) Location / / Volume Laterality 05/26/2019 9:14 PM 0 9:23 DIRECTOR WORK PM DIRECTOR WORK Impressions MUSE - 05/26/2019 9:23 PM DIRECTOR WORK Sinus tachycardia Left bundle branch block T wave abnormality, consider inferolater al ischemia When compared with ECG of 24-APR-2019 15 :01, Significant changes have occurred Reviewed by LUBNA Rudd Narrative This result has an attachment that is no t available. Procedure Note Espinoza Chandler M.D. - 05/26/2019Formatti osvaldo of this note might be different from the original. IMPRESSION: Sinus tachycardia Left bundle branch block T wave abnormality, consider inferolater al ischemia When compared with ECG of 24-APR-2019 15 :01, Significant changes have occurred Reviewed by LUBNA Rudd Alfonso Jackson M.D. ECG ORDERABLES Performing Organization Address City/State/ZIP Code Phon e Number MUSE MUSE NA documented in this encounter Visit Diagnoses Diagnosis Atrial Fibrillation Unspecified Cardiomyopathy Ischemic Atrial Fibrillation Unspecified Cardiomyopathy Ischemic Cardiomyopathy Ischemic Cardiomyopathy Ischemic documented in this encounter Admitting Diagnoses Diagnosis Cardiomyopathy Ischemic documented in this encounter Administered Medications Inactive Administered Medications - up to 3 most recent administrations Medication Order MAR Action Action Date Dose Rate Site apixaban tablet 5 mg (ELIQUIS) Given 05/29/2019 8:24 AM DIRECTOR WORK 5 mg 5 mg, oral, 2 times daily, First dose on Mon05/28/19 at 2100, Drug Monitoring Program: Pharmacist to adjust medication dosing based on indication and drug clearance factors. Given 05/28/2019 8:36 PM DIRECTOR WORK 5 mg atorvastatin tablet 40 mg (LIPITOR) Given 05/29/2019 8:23 AM DIRECTOR WORK 40 mg 40 mg, oral, Daily, First dose on Mon05/27/19 at 0900 Given 05/28/2019 9:08 AM DIRECTOR WORK 40 mg Given 05/27/2019 9:59 AM DIRECTOR WORK 40 mg docusate sodium capsule 100 mg (COLACE) 100 mg, oral, 2 times daily PRN, constip ation, Starting on 05/26/19 at 2112, Do NOT crush or chew. famotidine tablet 40 mg (PEPCID) Given 05/28/2019 8:36 PM DIRECTOR WORK 40 mg 40 mg, oral, Daily at bedtime, First dose on Mon05/27/19 at 2100, For 347 days, Drug Monitoring Program: Pharmacist to adjust medication dosing based on indication and drug clearance factors. Given 05/27/2019 8:42 PM DIRECTOR WORK 40 mg levothyroxine tablet 100 mcg (SYNTHROID, Given 05/29/2019 6:45 A M DIRECTOR WORK 100 mcg LEVOTHROID) 100 mcg, oral, Daily before breakfast, First dose on Mon05/27/19 at 0700 Given 05/28/2019 9:08 AM DIRECTOR WORK 100 mcg Given 05/27/2019 6:08 AM DIRECTOR WORK 100 mcg lisinopriL tablet 2.5 mg (PRINIVIL,ZESTR IL) Given 05/29/2019 8:23 AM DIRECTOR WORK 2.5 mg 2.5 mg, oral, Daily, First dose on Mon05/28/19 at 0915 Given 05/28/2019 11:38 AM DIRECTOR WORK 2.5 mg loperamide liquid 2 mg (IMODIUM A-D) Given 05/27/2019 9:32 PM DIRECTOR WORK 2 mg 2 mg, oral, 3 times daily PRN, diarrhea, Starting on Mon05/27/19 at 0425 loratadine tablet 10 mg (CLARITIN) Given 05/29/2019 8:24 AM DIRECTOR WORK 10 mg 10 mg, oral, Daily, First dose on Mon05/27/19 at 0900 Given 05/28/2019 9:08 AM DIRECTOR WORK 10 mg Given 05/27/2019 9:59 AM DIRECTOR WORK 10 mg melatonin tablet 6 mg Given 05/28/2019 8:36 PM DIRECTOR WORK 6 mg 6 mg, oral, Daily at bedtime, First dose (after last modification) on Mon05/28/19 at 2100 metoprolol succinate 24 hr tablet 50 mg (TOPROL-XL) 50 mg, oral, Daily, First dose on 08/13 at 0900, Do NOT crush or chew. Tablet may be split on score if needed. metoprolol tartrate tablet 25 mg (LOPRES SOR) Given 05/29/2019 8:24 AM DIRECTOR WORK 25 mg 25 mg, oral, 2 times daily, First dose on Mon05/26/19 at 2215, For 7 doses, HOLD for SBP < 100 mmHg or HR < 60 BPM Given 05/28/2019 8:36 PM DIRECTOR WORK 25 mg Given 05/28/2019 9:08 AM DIRECTOR WORK [address] tablet 40 mg (PROTONIX) Given 05/29/2019 8:24 AM DIRECTOR WORK 40 mg 40 mg, oral, 2 times daily, First dose on Mon05/27/19 at 0900, Swallow whole. Do NOT crush, chew, or split tablet. Given 05/28/2019 8:36 PM DIRECTOR WORK 40 mg Given 05/28/2019 9:09 AM DIRECTOR WORK 40 mg sodium chloride 0.9 % injection [...] injection 3 mL Given 05/29/2019 8:30 AM DIRECTOR WORK 3 mL 3 mL, intravenous, Every 12 hours scheduled, First dose on Mon05/27/19 at 0900, Peripheral Intravenous Catheter and Rapid Infusion Catheter, when no infusion to maintain patency Given 05/28/2019 8:30 PM DIRECTOR WORK 3 mL Given 05/28/2019 9:10 AM DIRECTOR WORK 3 mL sucralfate suspension 1 g (CARAFATE) Given 05/29/2019 8:24 AM DIRECTOR WORK 1 g 1 g, oral, 3 times daily after meals, First dose on Mon05/27/19 at 0900 Given 05/28/2019 8:01 PM DIRECTOR WORK 1 g Given 05/27/2019 7:15 PM DIRECTOR WORK 1 g sulfur hexafluoride microspheres injection Given 05/27/2019 3:47 PM DIRECTOR WORK 2 mL (LUMASON) intravenous, As needed, contrast, Starting on Mon05/27/19 at 1529, See protocol. Reconstitute each 25 mg vial with 5 mL NS. tamsulosin 24 hr capsule 0.4 mg (FLOMAX) Given 05/28/2019 8:36 PM DIRECTOR WORK 0.4 mg 0.4 mg, oral, Daily at bedtime, First dose on Mon05/26/19 at 2145, Swallow whole. Do NOT crush, chew or open capsule. Given 05/27/2019 8:42 PM DIRECTOR WORK 0.4 mg Given 05/26/2019 10:37 PM DIRECTOR WORK 0.4 mg venlafaxine XR 24 hr capsule 150 mg Given 05/29/2019 8:24 AM DIRECTOR WORK 150 mg (EFFEXOR-XR) 150 mg, oral, Daily with breakfast, First dose (after last modification) on Mon05/28/19 at 0800, Swallow whole. Do NOT crush, chew or open capsule. Given 05/28/2019 9:08 AM DIRECTOR WORK 150 mg vit C,V-Hv-tpgmk-lutein-zeaxan per capsule Given 05/28 8:24 AM DIRECTOR WORK 1 capsule 1 capsule (AREDS 2) 1 capsule, oral, Daily, First dose on Mon05/27/19 at 0900 Given 05/28/2019 9:08 AM DIRECTOR WORK 1 capsule Given 05/27/2019 9:59 AM DIRECTOR WORK 1 capsule documented in this encounter Active and Recently Administered Medications Times are shown in DIRECTOR WORK. Scheduled Medication Order 05/27/2019 05/28/2019 05/29/2019 apixaban [...] (Given - Prov ider: Gaudencio Jenkins RIsidra.)1606 (MAR Hold - Provider: Transfer Provider, Automatic - Reason: Patient not available)1825 (MAY Unhold - Provider: Transfer Provider, Automatic) 0908 (Given - Provider: Yael Prather RCareyNCarey)1415 (MAY Hold - Provider: Transfer Provider, Automatic - Reason: Patient not available)1657 (MAR Unhold - Provider: Transfer Provider, Automatic) 0823 (Given - Provider: Gaudencio arellano R.NCarey) 40 mg, oral, Daily, First dose on Mon05/27/19 at 0900 famotidine tablet 40 mg (PEPCID) 1606 (MAR Hold - Prov ider: Transfer Provider, Automatic - Reason: Patient not available)1825 (MAY Unhold - Provider: Transfer Provider, Automatic)2041 (Given - Provider: Carla Romero RCareyNCarey) 1415 (MAY Hold - Provider: Transfer Provider, Automatic - Reason: Patient not available)165 ([facility] Unhold - Provider: Transfer Provider, Automatic)2035 (Given - Provider: Hammad Zambrano RCareyNCarey) 40 mg, oral, Daily at bedtime, First dos e on Mon05/27/19 at 2100, For 347 days, Drug Monitoring Program: Pharmacist to adjust medication dosing based on indication and drug clearance factors. furosemide injection 20 mg (LASIX) (COMPLETED) 1850 (G iven - Provider: Gaudencio Jenkins RCareyNCarey) 20 mg, intravenous, Once, Mon05/27/19 at 1815, [...] (Given - Provider: Donna Horta R.N.)1606 ([facility] Hold - Provider: Transfer Provider, Automatic - Reason: Patient not available)1825 ([facility] Unhold - Provider: Transfer Provider, Automatic) 0908 (Given - Provider: Yael paris, R.N.)1415 ([facility] Hold - Provider: Transfer Provider, Automatic - Reason: Patient not available)1657 ([facility] Unhold - Provider: Transfer Provider, Automatic) 0645 (Given - Provider: Hammad Zambrano R.N.) 100 mcg, oral, Daily before breakfast, First dose on Mon05/27/19 at 0700 lisinopriL tablet 2.5 mg (PRINIVIL,ZESTRIL) 1138 (Given - Provider: Yael Prather R.N.)1415 ([facility] Hold - Provider: Transfer Provider, Automatic - Reason: Patient not available)1657 ([facility] Unhold - Provider: Transfer Provider, Automatic) 0823 (Given - Provider: Gaudnecio arellano R.NCarey) 2.5 mg, oral, Daily, First dose on Mon05/28/19 at 0915 loratadine tablet 10 mg (CLARITIN) 0959 (Given - Provi bakari: Gaudencio Jenkins RCareyNCarey)1606 ([facility] Hold - Provider: Transfer Provider, Automatic - Reason: Patient not available)1825 ([facility] Unhold - Provider: Transfer Provider, Automatic) 0908 (Given - Provider: Yael Prather RCareyN.)1415 ([facility] Hold - Provider: Transfer Provider, Automatic - Reason: Patient not available)1657 ([facility] Unhold - Provider: Transfer Provider, Automatic) 0824 (Given - Provider: Gaudencio arellano R.NCarey) 10 mg, oral, Daily, First dose on Mon05/27/19 at 0900 melatonin tablet 3 mg (CANCELED) 1606 ([facility] Hold - Prov ider: Transfer Provider, Automatic - Reason: Patient not available)1825 ([facility] Unhold - Provider: Transfer Provider, Automatic)2249 (Given - Provider: Carla Romero RCareyNCarey - Comment: Pt refused med earlier) 1415 ([facility] Hold - Provider: Transfer Prov ider, Automatic - Reason: Patient not available)1657 ([facility] Unhold - Provider: Transfer Provider, Automatic) 3 mg, oral, Daily at bedtime, First dose on 05/26/19 at 2145 melatonin tablet 6 mg 2035 (Given - Provider: Irvin Zambrano RCareyNCarey) 6 mg, oral, Daily at bedtime, First dose (after last modification) on 05/28/19 at 2100 metoprolol succinate 24 hr tablet 50 mg (TOPROL-XL) 50 mg, oral, Daily, First dose on Loly 05/30/19 at 0900, Do NOT crush or chew. Tablet may be split on score if needed. metoprolol tartrate tablet 25 mg (LOPRESSOR) 0959 (Giv en - Provider: Gaudencio Jenkins R.N.)160 ([facility] Hold - Provider: Transfer Provider, Automatic - Reason: Patient not available)1824 ([facility] Unhold - Provider: Transfer Provider, Automatic)2041 (Given - Provider: Carla Romero R.N.) 0908 (Given - Provider: Yael Prather RCareyNCarey)141 ([facility] Hold - Provider: Transfer Provider, Automatic - Reason: Patient not available)1656 ([facility] Unhold - Provider: Transfer Provider, Automatic)2035 (Given - Provider: Hammad Zambrano RIsidra.) 0824 (Given - Provider: Gaudencio Jenkins RCareyNCarey) 25 mg, oral, 2 times daily, First dose o n 05/26/19 at 2215, For 7 doses, HOLD for SBP < 100 mmHg or HR < [address] tablet 40 mg (PROTONIX) 0959 (Given - Provider: Gaudencio Jenkins R.N.)1606 ([facility] Hold - Provider: Transfer Provider, Automatic - Reason: Patient not available)182 ([facility] Unhold - Provider: Transfer Provider, Automatic)2041 (Given - Provider: Carla Romero R.N.) 0909 (Given - Provider: Yael Prather RTanisha)141 ([facility] Hold - Provider: Transfer Provider, Automatic - Reason: Patient not available)165 ([facility] Unhold - Provider: Transfer Provider, Automatic)2035 (Given - Provider: Hammad Zambrano R.N.) 0824 (Given - Provider: Gaudencio Jenkins R.N.) 40 mg, oral, 2 times daily, First dose o n Mon05/27/19 at 0900, Swallow whole. Do NOT crush, chew, or split tablet. potassium chloride ER tablet 40 mEq (KLORCON/K-TAB) (COMPLETED) 1500 (Given - Provider: Genesis CyrNCarey) 40 mEq, oral, Once, Mon05/29/19 at 1430, [...] 2042 (Not Given - Provider: Carla mckinley RCareyNCarey - Reason: Order parameters not met - Comment: PIV currently infusing with Heparin) sucralfate suspension 1 g (CARAFATE) 1003 (Not Given - Provider: Gaudencio Jenkins RIsidra. - Reason: Patient/family refused)1606 (MAR Hold - Provider: Transfer Provider, Automatic - Reason: Patient not available)1800 (Dose Auto Held - Provider: Transfer Provider, Automatic) 0910 (Not Given - Provider: Yael Prather RCareyN. - Reason: Patient/family refused - Comment: npo states only takes with foods)1405 (Not Given - Provider: Yael Prather RCareyNCarey - Reason: Patient/family refused - Comment: pt npo and doesn't want) 0824 (Given - Provider: Gaudencio Jenkins RCareyN.)1300 (Not Given - Provider: Gaudencio Jenkins RTanisha - Reason: Other) 1 g, oral, 3 times daily after meals, First dose on 05/27/19 at 0900 1825 ([facility] Unhold - Provider: Transfer Provider, Automatic)1915 (Given - Provider: Carla Romero R.N. - Comment: Pt finished eating now) 1415 ([facility] Hold - Provider: Transfer Provider, Automatic - Reason: Patient not available)165 ([facility] Unhold - Provider: Transfer Provider, Automatic)2000 (Given - Provider: Hammad Zambrano R.N.) tamsulosin 24 hr capsule 0.4 mg (FLOMAX) 1606 (MAY Hol d - Provider: Transfer Provider, Automatic - Reason: Patient not available)182 ([facility] Unhold - Provider: Transfer Provider, Automatic)2041 (Given - Provider: Carla Romero R.N.) 1415 ([facility] Hold - Provider: Transfer Provider, Automatic - Reason: Patient not available)165 ([facility] Unhold - Provider: Transfer Provider, Automatic)2035 (Given - Provider: Hammad Zambrano R.N.) 0.4 mg, oral, Daily at bedtime, First do se on Mon05/26/19 at 2145, Swallow whole. Do NOT crush, chew or open capsule. venlafaxine XR 24 hr capsule 150 mg (EFFEXOR-XR) 0908 (Given - Provider: Yael Prather RCareyNCarey)1415 ([facility] Hold - Provider: Transfer Provider, Automatic - Reason: Patient not available)1657 ([facility] Unhold - Provider: Transfer Provider, Automatic) 0824 (Given - Provider: Gaudencio arellano R.NCarey) 150 mg, oral, Daily with breakfast, Firs t dose (after last modification) on Mon05/28/19 at 0800, Swallow whole. Do NOT crush, chew or open capsule. venlafaxine XR 24 hr capsule 187.5 mg (EFFEXOR-XR) (CA NCELED) 0959 (Given - Provider: Gaudencio Jenkins RCareyNCarey)1606 ([facility] Hold - Provider: Transfer Provider, Automatic - Reason: Patient not available)1825 ([facility] Unhold - Provider: Transfer Provider, Automatic) 187.5 mg, oral, Daily with breakfast, Fi rst dose on Mon05/27/19 at 0800, Swallow whole. Do NOT crush, chew or open capsule. vit C,E-Ay-tvgbb-lutein-zeaxan per capsule 1 capsule ( AREDS 2) 0959 (Given - Provider: Gaudencio Jenkins RCareyNCarey)1606 ([facility] Hold - Provider: Transfer Provider, Automatic - Reason: Patient not available)1825 ([facility] Unhold - Provider: Transfer Provider, Automatic) 0908 (Given - Provider: Yael paris RCareyNCarey)1415 (MAY Hold - Provider: Transfer Provider, Automatic - Reason: Patient not available)1657 ([facility] Unhold - Provider: Transfer Provider, [...] sodium capsule 100 mg (COLACE) 1606 ([facility] Hold - Provider: Transfer Provider, Automatic - Reason: Patient not available)1825 ([facility] Unhold - Provider: Transfer Provider, Automatic) 1415 ([facility] Hold - Provider: Transfer Prov ider, Automatic - Reason: Patient not available)1657 ([facility] Unhold - Provider: Transfer Provider, [...] liquid 2 mg (IMODIUM A-D) 1606 ([facility] Hold - Provider: Transfer Provider, Automatic - Reason: Patient not available)1825 ([facility] Unhold - Provider: Transfer Provider, Automatic)2132 (Given - Provider: Carla Romero R.N.) 1415 ([facility] Hold - Provider: Transfer Provider, Automatic - Reason: Patient not available)1657 ([facility] Unhold - Provider: Transfer Provider, Automatic) 2 mg, oral, 3 times daily PRN, diarrhea, Starting 05/27/19 at 0425 nitroglycerin in D5W 100 mcg/mL syringe (for intra-arterial use only) (CANCELED) 1542 (Given - Provider: Rosalba Crowe M.D.) As needed, Starting 05/28/19 at 1542, Intraprocedure (CV) polyvinyl alcohol-povidone (PF) ophthalmic solution 1 drop (REFRESH CLASSIC) 1606 ([facility] Hold - Provider: Transfer Provider, Automatic - Reason: Patient not available)1825 ([facility] Unhold - Provider: Transfer Provider, Automatic) 1415 ([facility] Hold - Provider: Transfer Provider, Automatic - Reason: Patient not available)1657 ([facility] Unhold - Provider: Transfer Provider, Automatic) 1 drop, both eyes, 3 times daily PRN, dry eyes, Starting Sun 05/25 at 2138 sodium chloride 0.9 % injection 10 mL 1606 ([facility] Hold - Provider: Transfer Provider, Automatic - Reason: Patient not available)1825 ([facility] Unhold - Provider: Transfer Provider, Automatic) 1415 ([facility] Hold - Provider: Transfer Prov ider, Automatic - Reason: Patient not available)1657 ([facility] Unhold - Provider: Transfer Provider, Automatic) 10 mL, intravenous, As needed, line care , Starting 05/26/19 at 2112, Peripheral Intravenous Catheter and Rapid Infusion Catheter, prior to blood sampling, post blood transfusion or post blood sampling sodium chloride 0.9 % injection 3 mL 1606 ([facility] Hold - Provider: Transfer Provider, Automatic - Reason: Patient not available)1825 ([facility] Unhold - Provider: Transfer Provider, Automatic) 1415 ([facility] Hold - Provider: Transfer Prov ider, Automatic - Reason: Patient not available)1657 ([facility] Unhold - Provider: Transfer Provider, Automatic) 3 mL, intravenous, As needed, line care, Starting 05/26/19 at 2112, Prior to and following infusion and between multiple consecutive infusions: sodium chloride 0.9 % injection sulfur hexafluoride microspheres injection (LUMASON) 1 547 (Given - Provider: Velvet Delarosa R.N., CCRN)1606 ([facility] Hold - Provider: Transfer Provider, Automatic - Reason: Patient not available)1825 ([facility] Unhold - Provider: Transfer Provider, Automatic) 1415 ([facility] Hold - Provider: Transfer Prov ider, Automatic - Reason: Patient not available)1657 ([facility] Unhold - Provider: Transfer Provider, Automatic) intravenous, As needed, contrast, Starti ng Mon 05/27/19 at 1529, See protocol. Reconstitute each 25 mg vial with 5 mL NS. documented in this encounter
--- OUTSIDE RECORDS SUMMARY | 2022-01-16 15:58 | XMS_ITS | Encounter Summary ---
:1935 Author Organization [facility] Address [address] [place] [address] Care Team Providers Name Role Phone Unavailable Primary Care Provider Unavailable Encounter Details Date Type Department Care Team Description 10/08/2018 Hospital Encounter Department of Dimitris Tyler Malig nant Neoplasm Laboratory Medicine M.DCarey Of Bladder (HCC) and Pathology, [address] [place] [address] in [place], [place] [address] [place] [address] [place], [place] (Work) [phone] Social History Tobacco Use Types Packs/Day Years [...] or slept in a mcc (including now)? Sex Assigned at Date Recorded [...] 3 mg by mouth at 0 bedtime. pantoprazole (PROTONIX) Take 1 tablet by 0 [...] 1 or 2 500mg prn for pain. calcium carb/vit Take 1 tablet by 0 07/21/2015 D3/minerals (CALCIUM mouth daily. CARBONATE-VIT D3-MIN ORAL) CARAFATE 100 mg/mL TAKE 10 ML (2 900 mL 02/09/2018 suspension TEASPOONSFUL) THREE TIMES A DAY AFTER MEALS fluticasone (VERAMYST) Administer 1 spray 0 09/2905/27/2019 27.5 mcg/actuation nasal into affected spray nostril(s) daily as needed for rhinitis. levothyroxine Take 1 tablet by 0 09/30/201305/28 (SYNTHROID, LEVOTHROID) mouth every morning. 100 mcg tablet 137 mcg lidocaine (XYLOCAINE) 2 Insert into the 30 mL 0 019 10/22/2018 % gel urethra 4 (four) times a day. omega-3 fatty acids-fish Take 1 capsule by 0 08/2504/24/2019 oil (FISH OIL) 300-1,000 mouth daily. mg capsule raNITIdine (ZANTAC) 300 Take 1 tablet by 0 201404/24/2019 mg tablet mouth at bedtime. Take one tablet every night at bedtime. Take a 3-day drug holiday every month. trospium (SANCTURA) 20 Take 1 tablet (20 mg 10 tablet 0 10/22/2018 mg tablet total) by mouth 2 (two) times a day as needed (bladder spasms). Do not take within 24 hrs of catheter removal documented as of this encounter Plan of Treatment Not on filedocumented as of this encounter Procedures Procedure Name Priority Date/Time Associated Diagnosis Comme nts CYTOLOGY NON-AUTOMATIC MOUNTER Routine 10/25/2018 4:00 AM Malignant Neoplasm Results for this (SCHEDULED) CDT Of Bladder (HCC) procedure a re in the results section. documented in this encounter Results Cytology Non-AUTOMATIC MOUNTER (Scheduled) (10/25/2018 4:00 AM CDT) Component Value Ref Test Analysis Performed At [facility] [employer] Range Method Time Signature Gross Description Received 80 10/30/2018 cc of yellow 10:15 AM fluid in 70% CDT ethanol. Source A. Urine, 10/30/2018 voided 10:15 AM CDT Report Alethea Alatorre M.D. 10/30/2018 electronically I verify that I have examined all relevant slides/ma terials 10:15 AM signed by for the specimen(s) and rendered or confirmed the diagnosis. CDT 10/30/2018 10:15 AM CDT Interpretation A. Urine, voided (ThinPrep): Negative for High-Grade 10/30/2018 Urothelial Carcinoma. 10:15 AM Scanty cellularity. CDT Specimen Anatomical Collection Method Collection Time Receive d Time (Source) Location / / Volume Laterality Varies 10/25/2018 4:00 AM 9 CDT 12:33 PM CDT Narrative This result has an attachment that is no t available. Resulting Agency Comment Mailed In Specimen Dimitris Tyler M.D. LAB SURG PATH ORDERABLES Performing Organization Address City/State/ZIP Code Phon e Number [facility] - 200 [place], [place] [address] [facility] [place] documented in this encounter Visit Diagnoses Diagnosis Malignant Neoplasm Of Bladder (HCC) documented in this encounter
--- OUTSIDE RECORDS SUMMARY | 2022-01-16 15:58 | XMS_ITS | Encounter Summary ---
:1935 Author Organization [facility] Address [address] [place] [address] Care Team Providers Name Role Phone Unavailable Primary Care Provider Unavailable Encounter Details Date Type Department Care Team Description 06/26/2018 Hospital Encounter Department of Guillermina Simons Maligna nt Neoplasm Of Laboratory Medicine M.DCarey Bladder (HCC) and Pathology, [place], [place] [address] [place] [address] Social History Tobacco Use Types Packs/Day Years [...] or relatives? How often do you attend judaism or More than 4 times per year 09/25/2021 adventist services? Do you belong to any clubs or Yes 09/25/2021 organizations such as judaism groups, unions, fraternal or athletic groups, or [...] slept in a senior living (including now)? Sex Assigned at Date Recorded [...] mg/mL TAKE 10 ML (2 900 mL 11 02/09/2018 suspension TEASPOONSFUL) THREE TIMES A DAY [...] Priority Date/Time Associated Diagnosis Comme nts CYTOLOGY NON-HAND SOLE SEWER Routine 07/10/2018 7:00 AM Malignant Neoplasm Results for this (SCHEDULED) CDT Of Bladder (HCC) procedure a re in the results section. documented in this encounter Results Cytology Non-HAND SOLE SEWER (Scheduled) (07/10/2018 7:00 AM CDT) Component Value Ref Test Analysis Performed At [facility] gist Range Method Time Signature Gross Description Received 70 07/12/2018 [facility] IC cc of yellow 5:06 PM CDT LABORATORIES - fluid in 70% [facility] ethanol. CAMPUS Participated in [employer] 07/12/2018 [facility] the Radha, 5:06 PM CDT LABORATORIES - Interpretation M.DCarey-Patholog [facility] [place] [facility] Source A. Urine, 07/12/2018 [facility] voided 5:06 PM CDT LABORATORIES - [facility] Report Warren Bowen M.D. [phone] 07/12/2018 [facility] electronically I verify that I have examined all relevant slides/ma terials 5:06 PM CDT LABORATORIES - signed by for the specimen(s) and rendered or confirmed the diagnosi s. [facility] 07/12/2018 [facility] 5:06 PM CDT LABORATORIES - [facility] Interpretation A. Urine, voided (ThinPrep): Negative for High-Grade 07/12/2018 [facility] Urothelial Carcinoma. 5:06 PM CDT [facility] - [facility] Specimen Anatomical Collection Method Collection Time Receive d Time (Source) Location / / Volume Laterality Varies (Urine, 07/10/2018 7:00 AM 019 Voided) CDT 10:57 AM CDT Narrative This result has an attachment that is no t available. Resulting Agency Comment Mailed In Specimen Guillermina Simons M.D. LAB SURG PATH ORDERABLES Performing Organization Address City/State/ZIP Code Phon e Number [facility] - 200 [place], [place] [address] [facility] documented in this encounter Visit Diagnoses Diagnosis Malignant Neoplasm Of Bladder (HCC) documented in this encounter
--- OUTSIDE RECORDS SUMMARY | 2022-01-16 15:58 | XMS_ITS | Encounter Summary ---
:1935 Author Organization [facility] Address [address] [place] [address] Care Team Providers Name Role Phone Unavailable Primary Care Provider Unavailable Encounter Details Date Type Department Care Team Description 09/06/2018 Clinical Communication Department of Urology Oj Tyler in [place] [address] [place] [address] [phone] Social History Tobacco Use Types Packs/Day Years [...] or slept in a long-term (including now)? Sex Assigned at Date Recorded Male 08/14/2017 2:01 PM CDT documented as of this encounter Plan of Treatment Not on filedocumented as of this encounter Results Cytology Non-WILDLIFE BIOLOGIST (Scheduled) (10/25/2018 4:00 AM CDT) Component Value Ref Test Analysis Performed At [facility] gist Range Method Time Signature Gross Description [...] Organization Address City/State/ZIP Code Phon e Number [facility] - [address] [place], [place] [address] [facility] documented in this encounter Visit Diagnoses Diagnosis Malignant Neoplasm Of Bladder (HCC) - Pr imary documented in this encounter
--- OUTSIDE RECORDS SUMMARY | 2022-01-16 15:58 | XMS_ITS | Encounter Summary ---
:1935 Author Organization [facility] Address [address] [place] [address] Care Team Providers Name Role Phone Unavailable Primary Care Provider Unavailable Encounter Details Date Type Department Care Team Description 04/19/2018 Orders Only Department of Urology Guillermina Velasquez Malig nant Neoplasm Of in [facility] lizett Adams Bladder (HCC) (Primary [address] [facility] [place] [address] Social History Tobacco Use Types Packs/Day Years [...] or slept in a correction (including now)? Sex Assigned at Date Recorded Male 08/14/2017 2:01 PM CDT documented as of this encounter Plan of Treatment Not on filedocumented as of this encounter Results DE CYSTOURETHROSCOPY (08/09/2018 1:30 PM CDT) Specimen (Source) Anatomical Location Collection Method / Collectio n Time Received Time / Laterality Volume Narrative Danyell De Paz M.D. - 08/09/2018 1:3 0 PM CDT Danyell De Paz M.D. ? 08/09/2018 ??6:52 PM Cystoscopy (specific provider) Date/Time: 08/09/2018 6:47 PM Performed by: DANYELL DE PAZ Authorized by: GUILLERMINA VELASQUEZ Additional procedures performed: cystosc opy ?? Consent: ??Consent obtained: ??Verbal ??Consent given by: ??Patient ??The benefits, risks and alternatives to the procedure and the potential need for sedation or anesthesia as well as the names, roles, and responsibilities of healthcare team memb ers performing significant interventional tasks were discussed with the patient and/or decision maker.: yes ?The benefits, risks and alternatives to the possible need for blood products were discussed with the patient and/or decision maker.: ??Not addressed [place] protocol: ??All relevant documentation and testin g were reviewed and available. All required blood products, implants, devic es and/or special equipment were made available as applicable. The pre-pr ocedure verification was conducted, the correct site was marked i f required, and the procedural time out was conducted prior to performi ng the procedure and confirmed in a procedural pause.: yes ?? Pre-procedure details: ??Procedure purpose: ??Diagnostic ??Appropriate hand hygiene, gown, cap, mask, protective eyewear, sterile gloves, skin preparation, sterile drape, and strict aseptic technique were utilized as applicable for the procedure .: yes ?Site preparation: ??Povidone-iodine Sedation/Anesthesia (see MAR for exact d osages): ??Anesthesia method: ??None Procedure details: ??Imaging obtained: ??no Anterior urethra: ??Normal: yes ?? Posterior urethra: ??Normal: yes ?? Prostate: ??Characteristics: ??Hyperplasia - bilo bar Sphincter: ??Characteristics: ??Coapting Ureters: ??Characteristics: ??Effluxing clear ur ine ??Effluxing clear urine - side: ??Bilat eral Bladder: ??Normal: yes ?Quality of urine: ??Clear ??Residual upon entry: ??Small Retroflex view: ??Normal: yes ?Impression: ??Negative cystoscopy and no evidence of recurrent disease Post-procedure details: ??Procedure completed successfully: yes ?Complications: no apparent complicati ons ?? Comments: ?? 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 Intermediate risk per AUA non muscle inv asive bladder cancer guidelines. Been asymptomatic without gross hematuri a since resection. ??Urine cytology negative. Plan for recheck in three months with cy stoscopy. ??Will need rechecks every 3 to 6 months for the two years af ter initial resection. Guillermina Velasquez M.D. UROLOGY ORDERABLES Cytology Non-SILVER DESIGNER (Scheduled) (07/10/2018 7:00 AM CDT) Component Value Ref Test Analysis Performed At [facility] gist Range Method Time Signature Gross Description Received 70 07/12/2018 [facility] IC cc of yellow 5:06 PM CDT LABORATORIES - fluid in 70% [facility] ethanol. CAMPUS Participated in [employer] 07/12/2018 [facility] the Radha, 5:06 PM CDT LABORATORIES - Interpretation Bryan-Patholog [facility] y Resident CAMPUS Source A. Urine, 07/12/2018 [facility] voided 5:06 PM CDT LABORATORIES - [facility] Report Warren Bowen M.D. [phone] 07/12/2018 [facility] electronically I verify that I have examined all relevant slides/ma terials 5:06 PM CDT LABORATORIES - signed by for the specimen(s) and rendered or confirmed the diagnosi s. [facility] 07/12/2018 [facility] 5:06 PM CDT LABORATORIES - [facility] Interpretation A. Urine, voided (ThinPrep): Negative for High-Grade 07/12/2018 [facility] Urothelial Carcinoma. 5:06 PM CDT [facility] Specimen Anatomical Collection Method Collection Time Receive d Time (Source) Location / / Volume Laterality Varies (Urine, 07/10/2018 7:00 AM 019 Voided) CDT 10:57 AM CDT Narrative This result has an attachment that is no t available. Resulting Agency Comment Mailed In Specimen Guillermina Velasquez M.D. LAB SURG PATH ORDERABLES Performing Organization Address City/State/ZIP Code Phon e Number [facility] - [address] [place], [place] [address] [facility] documented in this encounter Visit Diagnoses Diagnosis Malignant Neoplasm Of Bladder (HCC) - Pr imary Malignant Neoplasm Of Bladder (HCC) documented in this encounter
--- OUTSIDE RECORDS SUMMARY | 2022-01-16 15:58 | XMS_ITS | Encounter Summary ---
:1935 Author Organization [facility] Address [address] [place] [address] Care Team Providers Name Role Phone Unavailable Primary Care Provider Unavailable Encounter Details Date Type Department Care Team Description 11/13/2018 Ancillary Procedure Department of Urology Social History Tobacco Use Types Packs/Day Years [...] or slept in a snf (including now)? Sex Assigned at Date Recorded Male 08/14/2017 2:01 PM CDT documented as of this encounter Plan of Treatment Not on filedocumented as of this encounter Procedures Procedure Name Priority Date/Time Associated Diagnosis Comme nts UROLOGY IMAGE EXAM Routine 11/13/2018 12:35 PM Re sults for this CDT procedure are i n the results section. documented in this encounter Results URO CYSTOSCOPY (SPECIFIC PROVIDER)-Urology Image Exam (11/13/2018 12:35 PM CDT) Specimen (Source) Anatomical Collection Method Collection Time Re ceived Time Location / / Volume Laterality 11/13/2018 12:33 PM CDT Narrative [facility] - 11/13/2018 1:56 PM CDT This order has been created and auto-finalized to support the import of images acquired without order. The clini milvia documentation to support these images can be found on the encounter hunter t produced images. Provider Not In System IMG NON RAD IMAGING PROCEDUR ES Performing Organization Address City/State/ZIP Code Phon e Number [facility] NA documented in this encounter Visit Diagnoses Not on filedocumented in this encounter
--- OUTSIDE RECORDS SUMMARY | 2022-01-16 15:58 | XMS_ITS | Encounter Summary ---
:1935 Author Organization [facility] Address [address] [place] [address] Care Team Providers Name Role Phone Unavailable Primary Care Provider Unavailable Encounter Details Date Type Department Care Team Description 07/24/2018 Clinical Communication Department [place] [address] [place] [phone] Social History Tobacco Use Types Packs/Day Years [...] or relatives? How often do you attend episcopal or More than 4 times per year 09/25/2021 jew services? Do you belong to any clubs or Yes 09/25/2021 organizations such as episcopal groups, unions, fraternal or athletic groups, or [...] slept in a nursing home (including now)? Sex Assigned at Date Recorded Male 08/14/2017 2:01 PM CDT documented as of this encounter Miscellaneous Notes Telephone Encounter - Zenia Wheat - 07/24/2018 1:03 PM CDT Patient's called back, let her know you can resolve. Telephone Encounter - Roslyn Rico - 07/24/2018 11:35 AM CDT Lm for pt please rely to pt and does not need to repeat urine cytology please inform pt. Thank you. Telephone Encounter - Roslyn Rico - 07/24/2018 10:49 AM CDT Pt and Shira called pt was scheduled to see Jayson on July 26 due to family emergency pt had toreschedule to August 09. Pt completed urine cytoloy on 07/10 and and pt wants to know if pt needs to repeat urine cytology or is the collection date for 07/10 okay? Please review and advise, thank you. documented in this encounter Plan of Treatment Not on filedocumented as of this encounter Visit Diagnoses Not on filedocumented in this encounter
--- OUTSIDE RECORDS SUMMARY | 2022-01-16 15:58 | XMS_ITS | Encounter Summary ---
:1935 Author Organization [facility] Address [address] [place] [address] Care Team Providers Name Role Phone Unavailable Primary Care Provider Unavailable Reason for Visit Reason Comments Med Refill Encounter Details Date Type Department Care Team Description 04/08/2019 Refill Division of Gastroenterology in Alyx Villafana Med Refill [place], [place] AWAKE OVERNIGHT MONITOR, C.N.P. [address] [place] [address] [address] [place] [address] [place], [place] [phone] (Wo rk) Social History Tobacco Use Types [...] or slept in a alf (including now)? Sex Assigned at Date Recorded Male 08/14/2017 2:01 PM CDT documented as of this encounter Plan of Treatment Not on filedocumented as of this encounter Visit Diagnoses Not on filedocumented in this encounter
--- OUTSIDE RECORDS SUMMARY | 2022-01-16 15:58 | XMS_ITS | Encounter Summary ---
:1935 Author Organization [facility] Address [address] [place] [address] Care Team Providers Name Role Phone Unavailable Primary Care Provider Unavailable Reason for Visit Reason Comments Esophageal Encounter Details Date Type Department Care Team Description 04/29/2019 Clinical Communication Division of Lisa Snow Gastroenterology in [place], [place] C.N.P., M.S. [address] [place] [address] [place] [phone] [place], [place] [phone] Social History Tobacco Use Types Packs/Day Years [...] place to sleep or slept in a fpc (including now)? Sex Assigned at Date Recorded Male 08/14/2017 2:01 PM CDT documented as of this encounter Miscellaneous Notes Telephone Encounter - Amanda Lucas R.N. - 04/29/2019 1:38 PM CST SUBJECTIVE CHIEF COMPLAINT / REASON FOR CALL Esophageal Test Result Information: Name of test result(s): ECG Test result information provided: abnormal ECG Ordered by: Alyx Villafana APRN [facility] Date performed: 04-24-2019 Disposition/Recommendation: self-care appropriate at this time, patient encouraged to call back withquestions, patient has an appointment with his primary provider to follow up with this abnormal testand compare the results with past tests. 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
--- OUTSIDE RECORDS SUMMARY | 2022-01-16 15:58 | XMS_ITS | Encounter Summary ---
:1935 Author Organization [facility] Address [address] [place] [address] Care Team Providers Name Role Phone Unavailable Primary Care Provider Unavailable Encounter Details Date Type Department Care Team Description 04/12/2018 Orders Only Department of Urology in Sera Morse R.N. [place], [place] [address] [place] [address] [place] [phone] Social History Tobacco Use Types Packs/Day Years [...] or relatives? How often do you attend jehovah's witness or More than 4 times per year 09/25/2021 mu-ism services? Do you belong to any clubs or Yes 09/25/2021 organizations such as jehovah's witness groups, unions, fraternal or athletic groups, or school groups? How often do you attend meetings of the More than 4 times pe year 09/25/2021 clubs or organizations you belong [...]
--- OUTSIDE RECORDS SUMMARY | 2022-01-16 15:58 | XMS_ITS | Encounter Summary ---
:1935 Author Organization [facility] Address [address] [place] [address] Care Team Providers Name Role Phone Unavailable Primary Care Provider Unavailable Encounter Details Date Type Department Care Team Description 11/04/2018 Orders Only Division of Alyx Villafana Cancer Esop ariana Primary Personal History (Primary Dx); Gastroenterology in A, COUNT TEAM MEMBER, C.N .P. Vicente's Esophagus [place], [place] [address] [facility] [address] [place] [phone] Social History Tobacco Use Types Packs/Day Years [...] or slept in a fci (including now)? Sex Assigned at Date Recorded Male 08/14/2017 2:01 PM CDT documented as of this encounter Plan of Treatment Not on filedocumented as of this encounter Visit Diagnoses Diagnosis Cancer Esophagus Primary Personal Histor y - Primary Vicente's Esophagus documented in this encounter
--- OUTSIDE RECORDS SUMMARY | 2022-01-16 15:58 | XMS_ITS | Encounter Summary ---
:[address] [facility] Address [address] [place] [address] Care Team Providers Name Role Phone Unavailable Primary Care Provider Unavailable Encounter Details Date Type Department Care Team Description 10/22/2018 Anesthesia Event Division of [facility] in [place], IMMIGRATION JUDGE, CRN A [place], [place] [address] [place] [address] [address] [place] [phone] Anesthesia Record Procedure Summary Procedure Name Responsible Anesthesia Start Anesthesia Stop Time Anesthesiologist Time EGD Jean-Pierre Lawton APRN, 10/22/18 1447 1513 (ESOPHAGEALGASTRODU CELL BIOLOGY SCIENTIST ODENOSCOPY) Events Date Time Event Comment 10/22/2018 1446 In Room 1447 An Start Machine/Equipmen t Checked Infection Precautions Foll owed Procedure/Site Verified NPO Sta tus Verified Supine Standard ASA Mon itors Applied 1452 Turnover to Proceduralist 1454 Proc Start 1505 Proc Fin 1505 Turnover to ANE Staff 1507 an stop data 1508 Out of Room 1513 An End I completed my h andoff to the receiving staff during [facility] we 1. Identified the patient 2. Ident ified the responsible provider 3. Revi ewed the pertinent medical history 4. Discu ssed the surgical course 5. Reviewed intra-o p anesthesia management and issues during an esthesia 6. Set expectations for post-procedure period 7. Allowed opportun ity for questions and acknowledgement of understanding. Name Total lidocaine 2% (mg) injection 100 mg propofol 10 mg/mL injection 50 mg propofol 10 mg/mL infusion 230.73 mg ondansetron PF 4 mg/2 mL injection 4 mg lactated ringers 300 mL Agents No agents on file. Blood No blood administrations on file. Lines, Drains, and Airways Type Details Placement Removal Indwelling Urinary Placement Date: 04/12/18 0901 by 10/22/18 152 5 by Catheter 04/12/18; Placement Anabell Kaur Thompson, Nichole Time: 09; Inserted Bud Zamudio, Guilherme.Tee, R.N. by: Robin Maddox M.D.; Type: Double-lumen; Size: 18 Fr.; Balloon Size: 5 mL (10 ml in balloon); Urine Returned: Yes (pink/clear ); Removal Date: 10/22/18; Removal Time: 1525 Peripheral IV Placement Date: 10/22/18 1425 by 10/22/18 1552 b y 10/22/18; Placement Lia Rodriguez Thompson, Nichole Time: 142; Catheter Bud Rogers, M.S.Tee, R.N. Size: 20 G; Orientation: Right; Location: Hand; Site Prep: Alcohol; Technique: Anatomical landmarks; Inserted by: tee polanco RN; Insertion Attempts: 1; Removal Date: 10/22/18; Removal Time: 1552 documented in this encounter Social History Tobacco Use Types Packs/Day Years [...] or slept in a fdc (including now)? Sex Assigned at Date Recorded Male 08/14/2017 2:01 PM CDT documented as of this encounter OR Notes Anesthesia Postprocedure Evaluation - Jean-Pierre Lawton APRN, CRNA - 10/22/2018 3:14 PM CDT Patient: Nii Franz Procedure Summary Date: 10/22/18 Room / Location: Division of Gastroenterology in [place], [place] Anesthesia Start: 1447 Anesthesia Stop: 1513 Procedure: EGD (ESOPHAGEALGASTRODUODENOSCOPY) Diagnosis: Vicente's Esophagus Cancer Esophagus Primary Personal History Vicente's Esophagus Cancer Esophagus Primary Personal History Scheduled Providers: Jean-Pierre Lawton APRN, CRNA Responsible Provider: Jean-Pierre Lawton APRN, CRNA Anesthesia Type: MAC ASA Status: 3 Anesthesia Type: MAC Last vitals Vitals Value Taken Time BP 156/69 10/22/2018 2:25 PM Temp 36.4 ??C 10/22/2018 3:12 PM Pulse 67 10/22/2018 3:13 PM Resp 13 10/22/2018 3:13 PM SpO2 97 % 10/22/2018 3:13 PM Vitals shown include unvalidated device data. Please reference Vitals flowsheet for most recent vital signs. Anesthesia Post Evaluation Patient Disposition: dismissal Cardiovascular status: hemodynamics (HR & BP) acceptable Respiratory status: patent airway with spontaneous effort Temperature: normothermic Oxygen requirements: room air Level of consciousness: awake Pain score: pain adequately controlled and/or at baseline Post Op nausea/vomiting: none Hydration status: euvolemic Anesthesia Preprocedure Evaluation - Jean-Pierre Lawton APRN, CRNA - 10/22/2018 3:13 PM CDT Preprocedure Anesthesia & H&P Assessment Procedure Summary Anesthesia Start Date/Time: 10/22/18 1447 Scheduled providers: Jean-Pierre Lawton APRN, CRNA Procedure: EGD (ESOPHAGEALGASTRODUODENOSCOPY) 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 Present illnessand pre-op diagnosis were confirmed. The planned surgery / procedure was verified with the patient /legal guardian. The patient's general health condition remains unchanged PROBLEM LIST Relevant Problems NEURO (+) Parkinson Disease (HCC) ONC (+) Malignant Neoplasm Of Bladder (HCC) (+) Malignant Neoplasm Of Esophagus (HCC) Other (+) Apnea Sleep Obstructive (+) Vicente's Esophagus (+) Dysplasia Esophagus OBJECTIVE PHYSICAL EXAMINATION Airway (HEENT) Mallampati: II TM Distance: >3 FB Neck ROM: Full Mouth Opening: >3 cm Upper Lip Bite Test Class: I Cardiovascular Rhythm: Regular Rate: Normal Cardiovascular Assessment: cardiovascular normal Functional Capacity: >4 METS Pulmonary Pulmonary Assessment: Clear General / Constitutional Constitutional Assessment: Normal General State of Health:: healthy appearing and calm Neurological Neurologic Assessment:??alert Dental Dental Assessment: dentition intact ASSESSMENT / PLAN ANESTHESIA PLAN ASA: 3 Anesthesia Plan: MAC Patient seen and allergies reviewed, anesthesia plan and risks discussed directly with patient /legal guardian or through an drywall worker.. Risks/Benefits/Alternatives of Blood transfusion discussed with patient / legal guardian, including an opportunity to ask questions and/or decline some or all transfusion therapies. The patient / legalguardian consented to the use of all blood products, as deemed medically necessary Approval to Proceed: approved for anesthesia documented in this encounter Plan of Treatment Not on filedocumented as of this encounter Visit Diagnoses Not on filedocumented in this encounter Administered Medications Inactive Administered Medications - up to 3 most recent administrations Medication Order MAR Action Action Date Dose Rate Site lactated ringers New Bag 10/22/2018 2:46 PM CDT 20 mL/hr, intravenous, Continuous, Starting on Mon10/22/18 at 1445, Following bolus, infuse for the duration of the procedure and recovery phase lidocaine (PF) (cardiac) injection Given 10/22/2018 2:51 PM CDT 100 mg intravenous, As needed, Starting on Mon10/22/18 at 1451, Anesthesia Intra-op ondansetron (PF) injection (ZOFRAN) Given 10/22/2018 2:46 PM CDT 4 mg intravenous, As needed, Starting on Mon10/22/18 at 1446, Anesthesia Intra-op propofol 10 mg/mL infusion New Bag 10/22/2018 2:51 125 mcg/kg/min 62.9 mL/hr (DIPRIVAN) PM CDT intravenous, Continuous Infusion: Per Instructions PRN, Starting on Mon10/22/18 at 1451, Anesthesia Intra-op propofol injection (DIPRIVAN) Given 10/22/2018 2:52 PM CDT 50 mg intravenous, As needed, Starting on Mon10/22/18 at 1452, Anesthesia Intra-op documented in this encounter
--- OUTSIDE RECORDS SUMMARY | 2022-01-16 15:58 | XMS_ITS | Encounter Summary ---
:1935 Author Organization [facility] Address [address] [place] [address] Care Team Providers Name Role Phone Unavailable Primary Care Provider Unavailable Encounter Details Date Type Department Care Team Description 04/19/2018 Clinical Communication Department of Urology Virgil Francisco in Herb Ramirez M.D. [address] [place] [phone] Social History Tobacco Use Types Packs/Day Years [...] slept in a long term (including now)? Sex Assigned at Date Recorded Male 08/14/2017 2:01 PM CDT documented as of this encounter Miscellaneous Notes Telephone Encounter - Rupali Seth - 04/19/2018 3:08 PM CST Please call. ERS COMPENSATION CONSULTANT documented in this encounter Plan of Treatment Not on filedocumented as of this encounter Visit Diagnoses Not on filedocumented in this encounter
--- OUTSIDE RECORDS SUMMARY | 2022-01-16 15:58 | XMS_ITS | Encounter Summary ---
:1935 Author Organization [facility] Address [address] [place] [address] Care Team Providers Name Role Phone Unavailable Primary Care Provider Unavailable Encounter Details Date Type Department Care Team Description 11/13/2018 Procedure visit Department of Urology Dimitris Tyler, Malignant Neoplasm Of in Bryan Ramirez Bladder (HCC) [place] 200 [facility] [address] [place] [phone] Social History Tobacco Use Types Packs/Day Years [...] More than 4 times per year 09/25/2021 yazidi services? Do you belong to any clubs [...] PM CDT documented as of this encounter Procedure Notes Virgil Choi M.D. - 11/13/2018 1:30 PM CDTAssociated Order(s): Cystoscopy (specific provider) Pre-Procedure Diagnose(s): Malignant Neoplasm Of Bladder (HCC) Post-Procedure Diagnose(s): Malignant Neoplasm Of Bladder (HCC) Cystoscopy (specific provider) Date/Time: 11/13/2018 1:57 PM Performed by: Virgil Choi M.D. Authorized by: Dimitris Tyler M.D. Additional procedures performed: cystoscopy PROCEDURE DETAILS Imaging obtained: no Anterior Urethra unremarkable. Sphincter coapted appropriately. Prostate demonstrated trilobar hypertrophy with significant intravesical protrusion. Reeder cystoscopy demonstrated no lesions masses or foreign objects within the bladder. Bilateral ureteral orifices noted orthotopic position. Retroflexed view unremarkable. Cytology negative Patient has intermediate risk bladder cancer diagnosed March 2018. He will be due to return in sixmonths with repeat cysto cytology and CT urogram CONSENT Consent obtained: verbal Consent given by: patient The benefits, risks and alternatives to the procedure and the potential need for sedation or anesthesia as well as the names, roles, and responsibilities of healthcare team members performing significant interventional tasks were discussed with the patient and/or decision maker. UNIVERSAL PROTOCOL All relevant documentation and testing were reviewed and available. All required blood products, implants, devices and or special equipment were made available as applicable. Pre-procedure verificationwas conducted and the correct site was marked if required. A fire risk assessment was done as applicable. The procedural time-out was conducted prior to performing the procedure and confirmed in a procedural pause. PRE PROCEDURE DETAILS Procedure purpose: Diagnostic Appropriate hand hygiene, gown, cap, mask, protective eyewear, sterile gloves, skin preparation, sterile drape, and strict aseptic technique were utilized as applicable for the procedure.: yes Site preparation: Povidone-iodine SEDATION / ANESTHESIA Anesthesia method: none POST PROCEDURE DETAILS Procedure completed successfully: yes Complications: no apparent complications documented in this encounter Plan of Treatment Scheduled Orders Name Type Priority Associated Diagnoses Order S chedule Dipstick, POCT, Point of Care Routine Malignant Neoplasm Of Or dered: 11/13/2018 Urine (nursing, Testing-Docked Bladder (HCC) interfaced) Device documented as of this encounter Procedures Procedure Name Priority Date/Time Associated Comments Diagnosis URO CYSTOSCOPY Routine 11/13/2018 1:30 PM Malignant Neoplasm R esults for this (SPECIFIC PROVIDER) CDT Of Bladder (HCC) proc edure are in the results section. [place] URINALYSIS AUTO Routine 11/13/2018 1:18 PM Res ults for this WO MICRO CDT procedure are i n the results section. documented in this encounter Results Cystoscopy (specific provider) (11/13/2018 1:30 PM CDT) Specimen (Source) Anatomical Location Collection Method / Collectio n Time Received Time / Laterality Volume Narrative Virgil Choi M.D. - 11/13/2018 1:30 PM CDT Virgil Choi M.D. ? 11/13/2018 ??1:57 PM Cystoscopy (specific provider) Date/Time: 11/13/2018 1:57 PM Performed by: Virgil Choi M.D. Authorized by: Dimitris Tyler M.D. Additional procedures performed: cystosc opy ?? PROCEDURE DETAILS Imaging obtained: ??no Anterior Urethra unremarkable. ??Sphinct er coapted appropriately. Prostate demonstrated trilobar hypertrophy with s ignificant intravesical protrusion. ??Reeder cystoscopy demonstrate d no lesions masses or foreign objects within the bladder. Bilateral ur eteral orifices noted orthotopic position. ??Retroflexed view unremarkabl e. Cytology negative Patient has intermediate risk bladder ca ncer diagnosed March 2018. ??He will be due to return in six months with repeat cysto cytology and CT urogram CONSENT Consent obtained: verbal Consent given by: patient The benefits, risks and alternatives to the procedure and the potential need for sedation or anesthesia as well as the names, roles, and responsibilities of healthcare team memb ers performing significant interventional tasks were discussed with the patient and/or decision maker. UNIVERSAL PROTOCOL All relevant documentation and testing w ere reviewed and available. All required blood products, implants, devic es and or special equipment were made available as applicable. Pre-proced ure verification was conducted and the correct site was marked if required. A fire risk assessment was done as applicable. The procedural time-out w as conducted prior to performing the procedure and confirmed in a procedu ral pause. PRE PROCEDURE DETAILS Procedure purpose: ??Diagnostic Appropriate hand hygiene, gown, cap, mas k, protective eyewear, sterile gloves, skin preparation, sterile drape, and strict aseptic technique were utilized as applicable for the procedure .: yes ?? Site preparation: ??Povidone-iodine SEDATION / ANESTHESIA Anesthesia method: none POST PROCEDURE DETAILS Procedure completed successfully: yes ?? Complications: no apparent complications ?? Dimitris Tyler M.D. UROLOGY ORDERABLES Dipstick, POCT, Urine (11/13/2018 1:18 PM CDT) [facility] gist Method Time Signature Glucose, POCT, Negative Negative 11/13/2018 U 1:19 PM CDT Ketone, POCT, Negative Negative 11/13/2018 U 1:19 PM CDT Specific 1.010 1.001 - 11/13/2018 [place], POCT, 1.035 1:19 PM CDT U Blood, POCT, U Negative Negative 11/13/2018 1:19 PM CDT pH, POCT, 6.5 5.0 - 8.0 11/13/2018 Urine 1:19 PM CDT Protein, POCT, Negative Negative 11/13/2018 U 1:19 PM CDT Nitrites, Negative Negative 11/13/2018 POCT, U 1:19 PM CDT Leukocytes, Negative Negative 11/13/2018 POCT, U 1:19 PM CDT Specimen Anatomical Collection Method Collection Time Receive d Time (Source) Location / / Volume Laterality Urine 11/13/2018 1:18 PM 9 1:19 CDT PM CDT Unknown Provider LAB POCT ORDERABLES - DEVICE Performing Organization Address City/State/ZIP Code Phon e Number [facility] [place] [facility] [address] [place] [address] documented in this encounter Visit Diagnoses Diagnosis Malignant Neoplasm Of Bladder (HCC) documented in this encounter
--- OUTSIDE RECORDS SUMMARY | 2022-01-16 15:58 | XMS_ITS | Encounter Summary ---
:1935 Author Organization [facility] Address [address] [place] [address] Care Team Providers Name Role Phone Unavailable Primary Care Provider Unavailable Encounter Details Date Type Department Care Team Description 12/03/2018 Clinical Communication Department of Urology Oj Tyler in [place] Julius [address] [place] [phone] Social History Tobacco Use Types Packs/Day Years [...] More than 4 times per year 09/25/2021 jain services? Do you belong to any clubs [...] place to sleep or slept in a group home (including now)? Sex Assigned at Date Recorded Male 08/14/2017 2:01 PM CDT documented as of this encounter Plan of Treatment Not on filedocumented as of this encounter Results Cytology Non-CATERING SALES MANAGER (Scheduled) (05/23/2019 9:10 AM PULP MILL OPERATOR) Component Value Ref Test Analysis Performed At [facility] gist Range Method Time Signature 05/27/2019 DTL 1:54 PM PULP MILL OPERATOR Participated in Baljit Kenny 05/27/2019 DTL the Interpretation Bryan-Patholog 1:54 PM PULP MILL OPERATOR y Fellow Report Warren Bowen M.D. [phone] 05/27/2019 D TL electronically I verify that I have examined all relevant slides/ma terials 1:54 PM PULP MILL OPERATOR signed by for the specimen(s) and rendered or confirmed the diagnosis. Gross Description Received 80 05/27/2019 DTL cc of yellow 1:54 PM PULP MILL OPERATOR fluid in 70% ethanol. Source A. Urine, 05/27/2019 DTL voided 1:54 PM PULP MILL OPERATOR Interpretation A. Urine, voided (ThinPrep): Negative for High-Grade 05/27/2019 DTL Urothelial Carcinoma. 1:54 PM PULP MILL OPERATOR Specimen Anatomical Collection Method Collection Time Receive d Time (Source) Location / / Volume Laterality Varies 05/23/2019 9:10 AM 0 PULP MILL OPERATOR 11:54 AM PULP MILL OPERATOR Narrative This result has an attachment that is no t available. Resulting Agency Comment Mailed In Specimen Dimitris Tyler M.D. LAB SURG PATH ORDERABLES Performing Organization Address City/State/ZIP Code Phon e Number [facility] - [address] [place], [place] [address] [facility] [place] [address] [facility] [address] documented in this encounter Visit Diagnoses Diagnosis Malignant Neoplasm Of Bladder (HCC) - Pr imary documented in this encounter
--- OUTSIDE RECORDS SUMMARY | 2022-01-16 15:58 | XMS_ITS | Encounter Summary ---
:1935 Author Organization [facility] Address [address] [place] [address] Care Team Providers Name Role Phone Unavailable Primary Care Provider Unavailable Encounter Details Date Type Department Care Team Description 04/12/2018 Ancillary Procedure Department of Urology Social History [...] or slept in a retirement (including now)? Sex Assigned at Date Recorded Male 08/14/2017 2:01 PM CDT documented as of this encounter Plan of Treatment Not on filedocumented as of this encounter Procedures Procedure Name Priority Date/Time Associated Diagnosis Comme nts UROLOGY IMAGE EXAM Routine 04/12/2018 9:05 AM Res ults for this AMUSEMENT OR RECREATION CARD CHECKER procedure are i n the results section. documented in this encounter Results UROLOGY IMAGE EXAM (04/12/2018 9:05 AM AMUSEMENT OR RECREATION CARD CHECKER) Specimen (Source) Anatomical Collection Method Collection Time Re ceived Time Location / / Volume Laterality 04/12/2018 10:11 AM AMUSEMENT OR RECREATION CARD CHECKER Narrative [facility] - 04/12/2018 9:05 AM AMUSEMENT OR RECREATION CARD CHECKER This order has been created and auto-finalized [...]
--- OUTSIDE RECORDS SUMMARY | 2022-01-16 15:58 | XMS_ITS | Encounter Summary ---
:1935 Author Organization [facility] Address [address] [place] [address] Care Team Providers Name Role Phone Unavailable Primary Care Provider Unavailable Encounter Details Date Type Department Care Team Description 10/22/2018 Hospital Division of Alyx Villafana APRN, C.N.P. [address] [place] [address] Vicente's Esophagus; Encounter Gastroenterology in Jean-Pierre Lawton APRN, TOURIST ESCORT [address] [place] [phone] Cancer Esophagus Primary Personal Histor y [place], [place] [address] [place], [place] [address] Social History Tobacco Use Types Packs/Day [...] or relatives? How often do you attend yarsani or More than 4 times per year 09/25/2021 congregation services? Do you belong to any clubs or Yes 09/25/2021 organizations such as yarsani groups, unions, fraternal or athletic groups, or [...] Sign Reading Time Taken Comments Blood Pressure 162/78 10/22/2018 3:35 PM CDT Pulse 66 10/22/2018 3:35 PM CDT Temperature 36.4 ??C (97.5 ??F) 10/22/2018 3:12 PM CDT Respiratory Rate 15 10/22/2018 3:35 PM CDT Oxygen Saturation 96% 10/22/2018 3:35 PM CDT Inhaled Oxygen Concentration - - Weight 83.9 kg (185 lb) 10/22/2018 2:21 PM CDT Height 175.3 cm (5' 9) 10/22/2018 2:21 PM CDT Body Mass Index 27.32 10/22/2018 2:21 PM CDT documented in this encounter Medications at Time of [...] peg 400-propylene glycol Administer 1 drop 0 10/0 09/2013 (SYSTANE) 0.4-0.3 % into both eyes [...] every morning. 100 mcg tablet 137 mcg omega-3 fatty acids-fish Take 1 capsule by 0 08/2504/24/2019 oil (FISH OIL) 300-1,000 mouth daily. mg capsule raNITIdine (ZANTAC) 300 Take 1 tablet by 0 201404/24/2019 mg tablet mouth at bedtime. Take one tablet every night at bedtime. Take a 3-day drug holiday every month. documented as of this encounter Plan of Treatment Not on filedocumented as of this encounter Procedures Procedure Name Priority Date/Time Associated Diagnosis Comme nts SURGICAL PATHOLOGY Routine 10/22/2018 2:57 PM Res ults for this CDT procedure are i n the results section. UPPER GI ENDOSCOPY Routine 10/22/2018 2:28 PM Vicente's Esophagus Results for this CDT Cancer Esophagus procedure a re in Primary Personal the results History section. EGD Routine 10/22/2018 2:28 PM Vicente's Eso phagus (ESOPHAGEALGASTRODU CDT Cancer Esophagus ODENOSCOPY) Primary Personal History documented in this encounter Results Surgical Pathology (10/22/2018 2:57 PM CDT) Component Value Ref Test Analysis Performed Pathologis t Range Method Time At Signature Gross Description A: ?? Received in formalin labeled with the patie nt's name, 10/23/2018 medical record number, and esophagus-gastroesophageal 2:40 PM junction T cardia are five pale lawrence-pink irregular soft CDT tissues, ranging from 0.4-0.6 cm in greatest dimension. Specimens are submitted en toto in cassette A1. ??Grossed by AT. B: ?? Received in formalin labeled with the patient's name, medical record number, and esophagus-distal esophagus are six pale lawrence-pink irregular soft tissues, ranging from 0.1-0.5 cm in greatest dimension. Specimens are submitted en toto in cassette B1. ??Grossed by AT. Participated in Jordan Norris, 10/23/2018 the Bryan, Ph.D. 2:40 PM Interpretation CDT Report Rika Petit.B.S. [phone] 10/23/2018 electronically I verify that I have examined all relevant slides/ma terials 2:40 PM signed by for the specimen(s) and rendered or confirmed the diagnosis. CDT Seen in consultation with Blanca Collins M.D., Ph.D. [phone] 10/23/2018 2:40 PM CDT Interpretation FINAL DIAGNOSIS 10/23/2018 A. Esophagus, Gastroesophageal Junction\Cardia, endoscopic 2:40 PM biopsy: ??Specialized Vicente's mucosa. ??Focal epithelial CDT atypia, indefinite for dysplasia. B. Esophagus, Distal Esophagus, endoscopic biopsy: ??Focal specialized Vicente's mucosa. ??Marked active inflammation with focal epithelial atypia, favor reactive. Specimen (Source) Anatomical Collection Method Collection Time Re ceived Time Location / / Volume Laterality Biopsy 10/22/2018 2:57 PM (Esophagus) CDT Biopsy 10/22/2018 2:57 PM (Esophagus) CDT Narrative This result has an attachment that is no t available. Darrell Carranza M.D. LAB SURG PATH ORDERABLES Performing Organization Address City/State/ZIP Code Phon e Number [facility] - [address] [place], [place] [address] [facility] Upper GI Endoscopy (10/22/2018 2:28 PM CDT) Specimen (Source) Anatomical Collection Method Collection Time Re ceived Time Location / / Volume Laterality 10/22/2018 2:28 PM CDT Impressions [facility] - 10/22/2018 3:12 PM CDT Post-op Diagnoses: ? 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 Biopsied. ? Treated with argon plasma coagula tion (APC). ? - 3 cm hiatal hernia. Narrative [facility] - 10/22/2018 3:12 PM CDT Reymundo 6 GI GI Patient Name: Nii Franz Date of : 1935 Age: 83 Gender: Male Procedure Date: 10/22/2018 Procedure: ? Upper GI endoscopy Providers: ? Darrell Carranza MD Referring Provider: ?Alyx Villafana Pre-op Diagnoses: ?Vicente's h igh grade dysplasia, Follow-up of ? pre vious ablation treatment of Vicente's esophagus, ? 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 - The patient will be observed po st-procedure, until all discharge ? criteria are met. ? - Await pathology results. Findings: ? Esophagogastric landmarks were id entified: the Z-line was found at 37 ? cm, the gastroesophageal junction was found at 38 cm and the site of ? hiatal narrowing was found at 41 cm from the incisors. ? The esophagus and gastroesophagea l junction were examined with white ? light and narrow band imaging (NB I) from a forward view and retroflexed ? position. There were esophageal m ucosal changes classified as Vicente's ? stage C0-M1 per Wakefield criteria. These changes involved the mucosa at ? the upper extent of the gastric f olds (38 cm from the incisors) ? extending to the Z-line (37 cm fr om the incisors). No visible ? abnormalities were present. Mucos a was biopsied with a cold jumbo ? forceps for histology in a target ed manner at intervals of 2 cm in the ? lower third of the esophagus and at the gastroesophageal junction. A ? total of 2 specimen bottles were sent to pathology. Estimated blood ? loss: none. Coagulation for tissu e destruction using argon plasma at 1 ? liter/minute and 60 louis was suc cessful. ? A 3 cm hiatal hernia was present. ? The examined duodenum was normal. Procedural Details: ? The patient was seen, evaluated, history reviewed, airway and heart-lung ? exams were performed by licensed provider and were satisfactory for ? planned level of sedation care. ? The risks, benefits and alternati ves for the procedure and sedation were ? discussed and informed consent wa s obtained. A procedural pause was ? conducted in the presence of assi sting personnel to verify the correct ? patient identity and procedure to be performed. Throughout the ? procedure, the patient's blood pr essure, pulse, and oxygen saturations ? were monitored continuously. The Gastroscope was introduced under direct ? vision through the mouth, and adv anced to the second part of duodenum. ? The upper GI endoscopy was accomp lished without difficulty. The patient ? tolerated the procedure well. Complications: ? No immedia te complications. Sedation: ? Anesthesia was administered by an anesthesia professional. The following ? parameters were monitored: oxygen saturation, heart rate, blood ? pressure, respiratory rate, EKG, adequacy of pulmonary ventilation, and ? response to care. Attending Participation: I personally pe rformed the entire procedure. Darrell Carranza MD 10/22/2018 3:12:21 PM This report has been signed electronical ly. Number of Addenda: 0 Alyx Villafana APRN CCareyNCareyPCarey GI PROCEDURE ORDERABLES Performing Organization Address City/State/ZIP Code Phon e Number [facility] NA documented in this encounter Visit Diagnoses Diagnosis Vicente's Esophagus Cancer Esophagus Primary Personal Histor y documented in this encounter Administered Medications Inactive Administered Medications - up to 3 most recent administrations Medication Order MAR Action Action Date Dose Rate Site lactated ringers New Bag 10/22/2018 2:46 PM CDT 20 mL/hr, intravenous, Continuous, Starting on Mon10/22/18 at 1445, Following bolus, infuse for the duration of the procedure and recovery phase sodium chloride 0.9 % injection 10 mL 10 mL, intravenous, As needed, line care, Starting on Mon10/22/18 at 1428, Peripheral Intravenous Catheter and Rapid Infusion Cat heter, prior to blood sampling, post blood transfusion or post blood samplin g sodium chloride 0.9 % injection 10 mL 10 mL, intravenous, As needed, line care, Starting on Mon10/22/18 at 1433, Peripheral Intravenous Catheter and Rapid Infusion Cat heter, prior to blood sampling, post blood transfusion or post blood samplin g sodium chloride 0.9 % injection 3 mL 3 mL, intravenous, As needed, line care, Starting on Mon10/22/18 at 1433, Prior to and following infusion and between multi ple consecutive infusions: sodium chloride 0.9 % injection sodium chloride 0.9 % injection 3 mL 3 mL, intravenous, Every 12 hours scheduled, First dos e on Mon10/22/18 at 2100, Peripheral Intravenous Catheter and Rapi d Infusion Catheter, when no infusion to maintain patency documented in this encounter Active and Recently Administered Medications Times are shown in CDT. Scheduled Medication Order 10/20/2018 10/21/2018 10/22/2018 lactated Ringer's bolus 500 mL 1 445 (Due) 500 mL, intravenous, at 1,000 mL/hr, Adm inister over 30 Minutes, Once, Mon10/22/18 at 1445, For 1 dose, Follow with 20 ml/hr infusion for the duration of the procedure and recovery phase sodium chloride 0.9 % injection 3 mL 3 mL, intravenous, Every 12 hours schedu led, First dose on Mon10/22/18 at 2100, Peripheral Intravenous Catheter and Rapid Infusion Catheter, when no infusion to maintain patency Continuous Medication Order 10/20/2018 10/21/2018 10/22/2018 lactated ringers 1446 (New Bag - Provider: Jean-Pierre Lawton APRN, TOURIST ESCORT)1456 (Anesthesia Volume Adjustment - Provider: Jean-Pierre Lawton APRN, DANIEL)1547 (Stopped - Provider: Ken Schwartz, R.N.) 20 mL/hr, intravenous, at 20 mL/hr, Cont inuous, Starting Mon10/22/18 at 1445, Following bolus, infuse for the duration of the procedure and recovery phase PRN Medication Order 10/20/2018 10/21/2018 10/22/2018 sodium chloride 0.9 % injection 10 mL 10 mL, intravenous, As needed, line care , Starting Mon10/22/18 at 1428, Peripheral Intravenous Catheter and Rapid Infusion Catheter, prior to blood sampling, post blood transfusion or post blood sampling sodium chloride 0.9 % injection 10 mL 10 mL, intravenous, As needed, line care , Starting Mon10/22/18 at 1433, Peripheral Intravenous Catheter and Rapid Infusion Catheter, prior to blood sampling, post blood transfusion or post blood sampling sodium chloride 0.9 % injection 3 mL 3 mL, intravenous, As needed, line care, Starting Mon10/22/18 at 1433, Prior to and following infusion and between multiple consecutive infusions: sodium chloride 0.9 % injection documented in this encounter
--- OUTSIDE RECORDS SUMMARY | 2022-01-16 15:58 | XMS_ITS | Encounter Summary ---
:1935 Author Organization [facility] Address [address] [place] [address] Care Team Providers Name Role Phone Unavailable Primary Care Provider Unavailable Encounter Details Date Type Department Care Team Description 04/24/2019 Ancillary Procedure Department of Gastroenterology Social History Tobacco Use Types Packs/Day Years [...] More than 4 times per year 09/25/2021 taoist services? Do you belong to any clubs [...] Procedure Name Priority Date/Time Associated Comments Diagnosis GASTROENTEROLOGY IMAGE Routine 04/24/2019 1:45 Re sults for this EXAM PM [facility] procedure are i n the results section. documented in this encounter Results Upper GI endoscopy-Gastroenterology Image Exam (04/24/2019 1:45 PM [facility]) Specimen (Source) Anatomical Collection Method Collection Time Re ceived Time Location / / Volume Laterality 04/24/2019 1:41 PM [facility] Narrative [facility] - 04/24/2019 3:02 PM [facility] This order has been created and auto-finalized [...]
--- OUTSIDE RECORDS SUMMARY | 2022-01-16 15:58 | XMS_ITS | Encounter Summary ---
:1935 Author Organization [facility] Address [address] [place] [address] Care Team Providers Name Role Phone Unavailable Primary Care Provider Unavailable Encounter Details Date Type Department Care Team Description 04/24/2019 Anesthesia Event Division of Laurel Fernando, GLOBAL COMPENSATION ANALYST, AUTO BRAKE TECHNICIAN [address] [place] [phone] Gastroenterology in [facility] Amanda Elizabeth, GLOBAL COMPENSATION ANALYST, AUTO BRAKE TECHNICIAN [address] [place] [phone] [place], [place] [address] [place] [address] Anesthesia Record Procedure Summary Procedure Name Responsible Anesthesia Start Anesthesia Stop Time Anesthesiologist Time EGD Darnell Fernando, GLOBAL COMPENSATION ANALYST, 04/24/19 1357 1440 (ESOPHAGEALGASTRODU AUTO BRAKE TECHNICIAN ODENOSCOPY) Events Date Time Event Comment 04/24/2019 1350 1357 An Start Machine/Equipmen t Checked Infection Precautions Foll owed Procedure/Site Verified NPO Sta tus Verified Supine Standard ASA Mon itors Applied 1357 In Room 1400 Turnover to Proceduralist 1412 Proc Start 1431 Proc Fin 1435 Turnover to ANE Staff 1438 Out of Room 1438 an stop data 1440 An End I completed my h andoff to the receiving staff during i ch we 1. Identified the patient 2. Ident ified the responsible provider 3. Revi ewed the pertinent medical history 4. Discu ssed the surgical course 5. Reviewed intra-o p anesthesia management and issues during an esthesia 6. Set expectations for post-procedure period 7. Allowed opportun ity for questions and acknowledgement of understanding. Name Total lidocaine 2% (mg) injection 60 mg propofol 10 mg/mL infusion 245.41 mg ondansetron PF 4 mg/2 mL injection 4 mg Lactated Ringers Free Drip 300 mL Agents No agents on file. Blood No blood administrations on file. Lines, Drains, and Airways Type Details Placement Removal Peripheral IV Placement Date: 04/24/19; 04/24/19 1256 by 04/24 1558 by Placement Time: 1256; Stacie Enriquez, Bethany leyva, Priscila Cortes, R.N. Catheter Size: 20 G; R.N. Orientation: Right; Location: Hand; Site Prep: Alcohol; Technique: Anatomical landmarks; Inserted by: stacie; Insertion Attempts: 1; Removal Date: 04/24/19; Removal Time: 1558 documented in this encounter Social History Tobacco [...] More than 4 times per year 09/25/2021 judaism services? Do you belong to any clubs [...] encounter OR Notes Anesthesia Postprocedure Evaluation - Darnell Fernando APRN, CRNA - 04/24/2019 2:43 PM CST Patient: Nii Franz Procedure Summary Date: 04/24/19 Room / Location: Division of Gastroenterology in [place], [place] Anesthesia Start: 1357 Anesthesia Stop: 1440 Procedure: EGD (ESOPHAGEALGASTRODUODENOSCOPY) Diagnosis: Cancer Esophagus Primary Personal History Vicente's Esophagus Cancer Esophagus Primary Personal History Vicente's Esophagus Scheduled Providers: Darrell Carranza M.D. Responsible Provider: Darnell Fernando APRN, CRNA Anesthesia Type: MAC ASA Status: 3 Anesthesia Type: MAC Last vitals Vitals Value Taken Time BP Temp Pulse Resp 18 04/24/2019 2:42 PM SpO2 97 % 04/24/2019 2:41 PM Vitals shown include unvalidated device data. Please reference Vitals flowsheet for most recent vital signs. Anesthesia Post Evaluation Patient Disposition: dismissal Cardiovascular status: hemodynamics (HR & BP) acceptable Respiratory status: patent airway with spontaneous effort Temperature: normothermic Oxygen requirements: room air Level of consciousness: awake Pain score: pain adequately controlled and/or at baseline Post Op nausea/vomiting: none Hydration status: euvolemic 400 DEVELOPER Anesthesia Preprocedure Evaluation - Amanda Orlando APRN, CRNA - 04/24/2019 1:35 PM CST Preprocedure Anesthesia & H&P Assessment Procedure Summary Date/Time: 04/24/19 1300 Scheduled providers: Roslyn Waddell APRN, CRNA Procedure: EGD (ESOPHAGEALGASTRODUODENOSCOPY) Diagnosis: Cancer Esophagus Primary Personal History [Z85.01] Vicente's Esophagus [K22.70] Cancer Esophagus Primary Personal History [Z85.01] Vicente's Esophagus [K22.70] Location: Division of Gastroenterology in [place], [place] Pertinent components of the patient's history including current problem list, medical history, surgical history, family history, social history, medications and allergies were reviewed. Present illnessand pre-op diagnosis were confirmed. The planned surgery / procedure was verified with the patient /legal guardian. The patient's general health condition remains unchanged PROBLEM LIST Relevant Problems ENDO (+) Hypothyroidism NEURO (+) Other Secondary Parkinsonism (HCC) GENETICS (+) Hyperlipidemia Mixed GI (+) Gastroesophageal Reflux Disease NOS HEME (+) Anemia ONC (+) Malignant Neoplasm Of Bladder (HCC) (+) Malignant Neoplasm Of Esophagus (HCC) Other (+) Pain Knee Right (+) Restless Leg Syndrome (+) Varicose Vein Lower Extremity OBJECTIVE PHYSICAL EXAMINATION Airway (HEENT) Mallampati: II [...] with patient /legal guardian or through an programming manager. Risks/Benefits/Alternatives of Blood transfusion discussed with patient / legal guardian, including an opportunity to ask questions and/or decline some or all transfusion therapies. The patient / legalguardian consented to the use of all blood products, as deemed medically necessary Approval to Proceed: approved for anesthesia 400 DEVELOPER documented in this encounter Plan of Treatment Not on filedocumented as of this encounter Visit Diagnoses Not on filedocumented in this encounter Administered Medications Inactive Administered Medications - up to 3 most recent administrations Medication Order MAR Action Action Date Dose Rate Site lactated ringers New Bag 04/24/2019 1:57 PM AS400 DEVELOPER intravenous, Continuous Infusion: Per Instructions PRN, Starting on Mon04/24/19 at 1357, Anesthesia Intra-op lidocaine (PF) (cardiac) injection Given 04/24/2019 2:05 PM AS400 DEVELOPER 60 mg intravenous, As needed, Starting on Mon04/24/19 at 1405, Anesthesia Intra-op ondansetron (PF) injection (ZOFRAN) Given 04/24/2019 2:05 PM AS400 DEVELOPER 4 mg intravenous, As needed, Starting on Mon04/24/19 at 1405, Anesthesia Intra-op propofol 10 mg/mL infusion Rate/Dose 04/24/2019 2:22 100 mcg/kg/min 50.3 mL/hr (DIPRIVAN) Change PM AS400 DEVELOPER intravenous, Continuous Infusion: Per Instructions PRN, Starting on Mon04/24/19 at 1405, Anesthesia Intra-op New Bag 04/24/2019 2:05 PM AS400 DEVELOPER 125 mcg/kg/min 62.9 mL/hr documented in this encounter
--- OUTSIDE RECORDS SUMMARY | 2022-01-16 15:58 | XMS_ITS | Encounter Summary ---
:1935 Author Organization [facility] Address [address] [place] [address] Care Team Providers Name Role Phone Unavailable Primary Care Provider Unavailable Encounter Details Date Type Department Care Team Description 08/09/2018 Ancillary Procedure Department of Urology Social History [...] More than 4 times per year 09/25/2021 restoration services? Do you belong to any clubs [...] or slept in a penitentiary (including now)? Sex Assigned at Date Recorded Male 08/14/2017 2:01 PM CDT documented as of this encounter Plan of Treatment Not on filedocumented as of this encounter Procedures Procedure Name Priority Date/Time Associated Diagnosis Comme nts UROLOGY IMAGE EXAM Routine 08/09/2018 10:10 AM Re sults for this CDT procedure are i n the results section. documented in this encounter Results URO CYSTOSCOPY (SPECIFIC PROVIDER)-Urology Image Exam (08/09/2018 10:10 AM CDT) Specimen (Source) Anatomical Collection Method Collection Time Re ceived Time Location / / Volume Laterality 08/09/2018 10:08 AM CDT Narrative [facility] - 08/09/2018 1:45 PM CDT This order has been created [...]
--- OUTSIDE RECORDS SUMMARY | 2022-01-16 15:58 | XMS_ITS | Encounter Summary ---
:1935 Author Organization [facility] Address [address] [place] [address] Care Team Providers Name Role Phone Unavailable Primary Care Provider Unavailable Encounter Details Date Type Department Care Team Description 08/17/2018 Clinical Communication Department of Urology [place] in [place] [address] [place] [phone] Social History Tobacco Use Types Packs/Day Years [...] on filedocumented as of this encounter Results Cystoscopy (specific provider) (11/13/2018 1:30 PM CDT) Specimen (Source) Anatomical Location Collection Method / Collectio n Time Received Time / Laterality Volume Narrative Virgil Choi M.D. - 11/13/2018 1:30 PM CDT Virgil Choi M.D. ? 11/13/2018 ??1:57 PM Cystoscopy (specific provider) Date/Time: 11/13/2018 1:57 PM Performed by: Virgil Choi M.D. Authorized by: Dimitris Tylre M.D. Additional procedures performed: cystosc opy ?? [...] complications ?? Dimitris Tyler M.D. UROLOGY ORDERABLES documented in this encounter Visit Diagnoses Diagnosis Malignant Neoplasm Of Bladder (HCC) - Pr imary Malignant Neoplasm Of Bladder (HCC) documented in this encounter
--- OUTSIDE RECORDS SUMMARY | 2022-01-16 15:58 | XMS_ITS | Encounter Summary ---
:1935 Author Organization [facility] Address [address] [place] [address] Care Team Providers Name Role Phone Unavailable Primary Care Provider Unavailable Encounter Details Date Type Department Care Team Description 06/12/2018 Clinical Communication Division of [facility] in [place], [place] WEB PRODUCTION ARTIST, C.N.P. [address] [facility] [address] [place] [address] [place], [place] [phone] Social History Tobacco Use Types Packs/Day Years [...] More than 4 times per year 09/25/2021 buddhist services? Do you belong to any clubs [...] or slept in a prison (including now)? Sex Assigned at Date Recorded Male 08/14/2017 2:01 PM CDT documented as of this encounter Plan of Treatment Not on filedocumented as of this encounter Visit Diagnoses Not on filedocumented in this encounter
--- OUTSIDE RECORDS SUMMARY | 2022-01-16 15:58 | XMS_ITS | Encounter Summary ---
:1935 Author Organization [facility] Address [address] [place] [address] Care Team Providers Name Role Phone Unavailable Primary Care Provider Unavailable Reason for Visit Reason Onset Date Comments Lidocaine 2% gel 04/12/2018 Encounter Details Date Type Department Care Team Description 04/12/2018 Clinical Communication Department of Anuj Francisco 2% gel Urology in Virgil Estevez M.D. [place], [place] [address] [facility] [address] [place] [phone] Social History Tobacco Use Types Packs/Day Years [...] or slept in a jail (including now)? Sex Assigned at Date Recorded Male 08/14/2017 2:01 PM CDT documented as of this encounter Miscellaneous Notes Telephone Encounter - Rupali Seth - 04/12/2018 12:[address] Maddox--want to give anything else ? A CRITIC Telephone Encounter - Katerin St - 04/12/2018 10:04 AM CST Qi from [facility] in [place] called regarding the prescription for lidocaine 2% gel that Dr. Maddox prescribed to the patient and they also tried another pharmacy in [place] and they do not have it available either so just wanted to let you know. Thanks. A CRITIC documented in this encounter Plan of Treatment Not on filedocumented as of this encounter Visit Diagnoses Not on filedocumented in this encounter
--- OUTSIDE RECORDS SUMMARY | 2022-01-16 15:58 | XMS_ITS | Encounter Summary ---
:1935 Author Organization [facility] Address [address] [place] [id number] Care Team Providers Name Role Phone Unavailable Primary Care Provider Unavailable Encounter Details Date Type Department Care Team Description 10/22/2018 Ancillary Procedure Department of Gastroenterology Social History [...] Date/Time Associated Comments Diagnosis GASTROENTEROLOGY IMAGE Routine 10/22/2018 2:30 Re sults for this EXAM PM CDT procedure are i n the results section. documented in this encounter Results Upper GI endoscopy-Gastroenterology Image Exam (10/22/2018 2:30 PM CDT) Specimen (Source) Anatomical Collection Method Collection Time Re ceived Time Location / / Volume Laterality 10/22/2018 2:28 PM CDT Narrative [facility] - 10/22/2018 3:18 PM CDT This order has been created [...]
--- OUTSIDE RECORDS SUMMARY | 2022-01-16 15:58 | XMS_ITS | Encounter Summary ---
:1935 Author Organization [facility] Address [address] [place] [address] Care Team Providers Name Role Phone Unavailable Primary Care Provider Unavailable Encounter Details Date Type Department Care Team Description 04/19/2018 Orders Only Department of Urology in [place] Tyler M.D. [place], [place] [address] [place] [address] [place] [phone] (Wo rk) Social History Tobacco Use Types [...]
--- OUTSIDE RECORDS SUMMARY | 2022-01-16 15:58 | XMS_ITS | Encounter Summary ---
:1935 Author Organization [facility] Address [address] [place] [address] Care Team Providers Name Role Phone Unavailable Primary Care Provider Unavailable Encounter Details Date Type Department Care Team Description 04/12/2018 Anesthesia Event Outpatient Procedure Zandra Velasco APRN, DIRECTOR CUSTOMER [address] [place] [phone] [place] in [place], Sher Beltran M.D. [address] [place] [phone] [place] [address], [place] [phone] Anesthesia Record Procedure Summary Procedure Name Responsible Anesthesia Start Anesthesia Stop Anesthesiologist Time Time CYSTOSCOPY, Zandra Velasco APRN, 04/12/18 0752 9 0921 TRANSURETHRAL DIRECTOR CUSTOMER RESECTION LESION BLADDER// PARALYSIS, PYRIDIUM. Events Date Time Event Comment 04/12/2018 0749 0752 An Start Machine/Equipmen t Checked Infection Precautions Foll owed Procedure/Site Verified NPO Sta tus Verified Supine Standard ASA Mon itors Applied 0752 In Room 0800 An Induction 0808 An Intubation 0810 Turnover to Proceduralist 0832 Proc Start 0901 Proc Fin 0903 Turnover to ANE Staff 0909 Airway Removal Criteria Met 0909 Extubation/Airway Removed 0915 Out of Room 0915 an stop data 0921 An End I completed my h andoff to the receiving staff during whi ch we 1. Identified the patient 2. Ident ified the responsible provider 3. Revi ewed the pertinent medical history 4. Discussed the surgical course 5. Review ed intra-op anesthesia management and i ssues during anesthesia 6. Set expectati ons for post-procedure period 7. Allowe d opportunity for questions and ac knowledgement of understanding. Name Total lidocaine 2% (mg) injection 100 mg propofol 10 mg/mL 150 mg ondansetron 4 mg/2 mL injection 4 mg sugammadex 100 mg/mL injection 360 mg propofol 10 mg/mL infusion 580.56 mg ceFAZolin injection 2 g (ANCEF) 2 g rocuronium 10 mg/mL injection 60 mg HYDROmorphone PF 2 mg/mL injection 0.5 mg ketorolac 30 mg injection 15 mg lactated ringers 1,400 mL Agents No agents on file. Blood No blood administrations on file. Lines, Drains, and Airways Type Details Placement Removal Peripheral IV Placement Date: 04/12/18 0730 by 04/12/18 1143 b y 04/12/18; Placement Soraida Deluna Markey, Su mmer J, Time: 729; Catheter R.N. R.N. Size: 22 G; Orientation: Right; Location: Hand; Site Prep: Alcohol; Technique: Anatomical landmarks; Inserted by: josue; Insertion Attempts: 1; Removal Date: 04/12/18; Removal Time: 1143 ETT Placement Date: 04/12/18 0808 by 04/12/18 0909 b y 04/12/18; Placement Zandra Velasco Marquardt, Rita A, Time: 08 (created [employer]INA SALES AND SERVICE SUPERVISOR, DIRECTOR CUSTOMER [employer] SERVICE SUPERVISOR, DIRECTOR CUSTOMER via procedure documentation); Mask Ventilation: Oral/Nasal airway needed; Type: Standard ETT; Single Lumen Tube Size: 7 mm; Cuffed: Yes; Location: Oral; Grade View: Grade 3A; Insertion Attempts: 2; Removal Date: 04/12/18; Removal Time: 09 Indwelling Urinary Placement Date: 04/12/18 0901 by 10/22/18 152 5 by Catheter 04/12/18; Placement Anabell Kaur Thompson, Nichole Time: 09; Inserted R.N. J, M.S.N., R.N. by: Robin Maddox M.D.; Type: Double-lumen; Size: 18 Fr.; Balloon Size: 5 mL (10 ml in balloon); Urine Returned: Yes (pink/clear ); Removal Date: 10/22/18; Removal Time: 1524 documented in this encounter Social History Tobacco [...] slept in a care home (including now)? Sex Assigned at Date Recorded Male 08/14/2017 2:01 PM CDT documented as of this encounter OR Notes Anesthesia Postprocedure Evaluation - Zandra Velasco APRN, CRNA - 04/12/2018 9:31 AM CST Patient: Nii Franz Procedure Summary Date: 04/12/18 Room / Location: [address] / [facility] in [place], [place] Anesthesia Start: 751 Anesthesia Stop: 920 Procedures: CYSTOSCOPY, TRANSURETHRAL RESECTION LESION BLADDER// PARALYSIS, PYRIDIUM. 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 Responsible Provider: Zandra Velasco APRN, CRNA Anesthesia Type: general ASA Status: 3 Anesthesia Type: general Last vitals BP 147/67 (04/12/18919) Temp 36.3 ??C (04/12/18919) Pulse (!) 58 (04/12/18919) Resp 14 (04/12/18919) SpO2 93 % (04/12/18919) Anesthesia Post Evaluation Patient Disposition: dismissal Cardiovascular status: hemodynamics (HR & BP) acceptable Respiratory status: patent airway with spontaneous effort Temperature: normothermic Oxygen requirements: room air Level of consciousness: sedated but awakens easily Pain score: pain adequately controlled and/or at baseline Post Op nausea/vomiting: none Hydration status: euvolemic MIXER Anesthesia Procedure Notes - Zandra Velasco APRN, CRNA - 04/12/2018 8:26 AM CSTAssociated Order(s): AIRWAY MANAGEMENT Airway Date/Time: 04/12/2018 8:08 AM Patient location during procedure: OR / Procedure Area Performed by: ZANDRA VELASCO Authorized by: ZANDRA VELASCO Pre procedure details Pre evaluation for airway management: procedure Urgency: elective Preop assessment of probable difficulty: no difficulty anticipated Sedation level: anesthetized Preoxygenation: bag valve mask Procedure details Mask difficulty assessment: oral/nasal airway needed Final airway type: video laryngoscope Laryngeal Manipulation: no Final best view of glottic structures - Cormack/Lehane Score: grade 2A ETT location: oral VL device: glide scope [place] scope blade size: 3 Adult tube size: 7 Adult ETT distance at teeth/gum: 22 Oral tube type: standard ETT Cuffed: yes Number of attempt to successful placement: 1 Airway confirmation: bilateral breath sounds, positive ETCO2 and bilateral chest rise Other previous techniques attempted: direct laryngoscopy; intubation Number of other approaches attempted: 2 Previous direct laryngoscopy: best view of glottic structures: grade 3A Post procedure details Procedure outcome: successful Airway event: no complications Additional Comments ANTERIOR AIRWAY WITH USE OF GONZALEZ 2 AND THEN GONZALEZ 3 BLADES, SWITCHED TO GLIDESCOPE WITH 2A VIEW AND THEN CRICOID PRESSURE TO PLACE ETT, DRY LIPS, UPPER LIP TINY TEASR THAT RESPONDED WELL TO VASELINEAPPLICATION, NO FURTHER BLEEDING. MIXER Anesthesia Preprocedure Evaluation - Sher Beltran M.D. - 04/12/2018 7:47 AM CST Anesthesia Pre-Evaluation Pertinent components of the patient's history including current problem list, medical history, surgical history, family history, social history, medications and allergies were reviewed and updated as appropriate. The patient was examined and the Pre-op diagnosis, planned procedure, and H&P were reviewed and remain unchanged. 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 The use of blood products not discussed [place]; BMI 29; several endoscopy procedures for Vicente's esophagus; modest regurg; JESSE; Parkinson's; allergy (has difficulty awakening) with versed and fentanyl; some type of reaction to codeine in the past; MP 1 several times in the recent past MIXER documented in this encounter Miscellaneous Notes Addendum Note - Sher Beltran M.D. - 04/12/2018 10:13 AM CST Addendum created 04/12/18 1013 by Sher Beltran M.D. Order list changed MIXER documented in this encounter Plan of Treatment Not on filedocumented as of this encounter Procedures Procedure Name Priority Date/Time Associated Comments Diagnosis LDA ANE ENDOTRACHEAL Routine 04/12/2018 8:26 AM R esults for this AIRWAY BRAN MIXER procedure are i n the results section. documented in this encounter Results LDA ANE ENDOTRACHEAL AIRWAY (04/12/2018 8:26 AM BRAN MIXER) Narrative Zandra Velasco APRN, CRNA - 04/12/19 19 8:26 AM BRAN MIXER Zandra Velasco APRN, CRNA ? 04/12/2018 ??8:30 AM Airway Date/Time: 04/12/2018 8:08 AM Patient location during procedure: OR / Procedure Area Performed by: ZANDRA VELASCO Authorized by: ZANDRA VELASCO Pre procedure details ?? Pre evaluation for airway management : procedure ?? Urgency: elective ?? Preop assessment of probable difficu lty: no difficulty anticipated ?? Sedation level: anesthetized ?? Preoxygenation: bag valve mask Procedure details ??Mask difficulty assessment: oral/nasa l airway needed ?? Final airway type: video laryngoscop e Laryngeal Manipulation: no ? Final best view of glottic structure s - Cormack/Lehane Score: grade 2A ?? ETT location: oral ?? VL device: glide scope ?? [place] scope blade size: 3 ?? Adult tube size: 7 ?? Adult ETT distance at teeth/gum: 22 ?? Oral tube type: standard ETT ?? Cuffed: yes ?? Number of attempt to successful plac ement: 1 ?? Airway confirmation: bilateral breat h sounds, positive ETCO2 and bilateral chest rise ?? Other previous techniques attempted: direct laryngoscopy; intubation ?? Number of other approaches attempted : 2 ?? Previous direct laryngoscopy: best v iew of glottic structures: grade 3A Post procedure details ?? Procedure outcome: successful ? Airway event: no complications Additional Comments ANTERIOR AIRWAY WITH USE OF GONZALEZ 2 AND THEN GONZALEZ 3 BLADES, SWITCHED TO GLIDESCOPE WITH 2A VIEW AND THEN CRICOID PRESSURE TO PLACE ETT, DRY LIPS, UPPER LIP TINY TEASR THAT RESPONDED WELL TO VASELINE APPLICATION, NO FURTHER BLEEDING. ?? Procedure Note Zandra Velasco APRN, CRNA - 04/12/19 8:26 AM CST Airway Date/Time: 04/12/2018 8:08 AM Patient location during procedure: OR / Procedure Area Performed by: ZANDRA VELASCO Authorized by: ZANDRA VELASCO Pre procedure details Pre evaluation for airway management: p rocedure Urgency: elective Preop assessment of probable difficulty : no difficulty anticipated Sedation level: anesthetized Preoxygenation: bag valve mask Procedure details Mask difficulty assessment: oral/nasal airway needed Final airway type: video laryngoscope Laryngeal Manipulation: no Final best view of glottic structures - Cormack/Lehane Score: grade 2A ETT location: oral VL device: glide scope [place] scope blade size: 3 Adult tube size: 7 Adult ETT distance at teeth/gum: 22 Oral tube type: standard ETT Cuffed: yes Number of attempt to successful placeme nt: 1 Airway confirmation: bilateral breath s ounds, positive ETCO2 and bilateral chest rise Other previous techniques attempted: di rect laryngoscopy; intubation Number of other approaches attempted: 2 Previous direct laryngoscopy: best view of glottic structures: grade 3A Post procedure details Procedure outcome: successful Airway event: no complications Additional Comments ANTERIOR AIRWAY WITH USE OF GONZALEZ 2 AND THEN GONZALEZ 3 BLADES, SWITCHED TO GLIDESCOPE WITH 2A VIEW AND THEN CRICOID PRESSURE TO PLACE ETT, DRY LIPS, UPPER LIP TINY TEASR THAT RESPONDED WELL TO VASELINE APPLICATION, NO FURTHER BLEEDING. Zandra Velasco APRN, CRNA ANESTHESIA ORDERABLES documented in this encounter Visit Diagnoses Not on filedocumented in this encounter Administered Medications Inactive Administered Medications - up to 3 most recent administrations Medication Order MAR Action Action Date Dose Rate Site ceFAZolin injection 2 g (ANCEF) Given 04/12/2018 8:20 AM BRAN MIXER 2 g 2 g, intravenous, Once, On Loly 04/12/18 at 0700, For 1 dose, Intra-Op, [place] IV push over 3 minutes. Add 5 mL NS to 1 gram vial for a final concentration of 200 mg/mL., Drug Monitoring Program: Pharmacist to adjust medication dosing based on indication and drug clearance factors., Indications: Prophylaxis, surgical HYDROmorphone (PF) injection (DILAUDID) Given 04/12/2018 8:26 AM BRAN MIXER 0.1 mg As needed, severe pain or score 7-10 of 10, Starting on Loly 04/12/18 at 0814, Anesthesia Intra-op Given 04/12/2018 8:14 AM BRAN MIXER 0.4 mg ketorolac injection (TORADOL) Given 04/12/2018 8:34 AM BRAN MIXER 15 mg As needed, moderate pain or score 4-6 of 10, Starting on Loly 04/12/18 at 0834, Anesthesia Intra-op lactated ringers New Bag 04/12/2018 8:42 AM BRAN MIXER 20 mL/hr, intravenous, Continuous, Starting on Loly 04/12/18 at 0800 New Bag 04/12/2018 7:48 AM BRAN MIXER 20 mL/hr 20 mL/hr lidocaine (PF) (cardiac) injection Given 04/12/2018 8:00 AM BRAN MIXER 100 mg intravenous, As needed, Starting on Loly 04/12/18 at 0800, Anesthesia Intra-op ondansetron (PF) injection (ZOFRAN) Given 04/12/2018 8:00 AM BRAN MIXER 4 mg intravenous, As needed, nausea, vomiting, Starting on Loly 04/12/18 at 0800, Anesthesia Intra-op propofol 10 mg/mL infusion Rate/Dose 04/12/2018 8:42 100 mcg/kg/min 53.1 mL/hr (DIPRIVAN) Change AM BRAN MIXER intravenous, Continuous Infusion: Per Instructions PRN, Starting on Loly 04/12/18 at 0800, Anesthesia Intra-op Rate/Dose Change 04/12/2018 8:14 AM BRAN MIXER 110 mcg/kg/min 58.4 mL/hr New Bag 04/12/2018 8:00 AM BRAN MIXER 120 mcg/kg/min 63.7 mL/hr propofol injection (DIPRIVAN) Given 04/12/2018 8:55 AM BRAN MIXER 10 mg intravenous, As needed, Starting on Loly 04/12/18 at 0800, Anesthesia Intra-op Given 04/12/2018 8:00 AM BRAN MIXER 140 mg rocuronium injection (ZEMURON) Given 04/12/2018 8:35 AM BRAN MIXER 10 mg As needed, Starting on Loly 04/12/18 at 0801, Anesthesia Intra-op Given 04/12/2018 8:01 AM BRAN MIXER 50 mg sugammadex injection (BRIDION) Given 04/12/2018 9:01 AM BRAN MIXER 360 mg As needed, Starting on Loly 04/12/18 at 0901, Anesthesia Intra-op documented in this encounter
--- OUTSIDE RECORDS SUMMARY | 2022-01-16 15:58 | XMS_ITS | Encounter Summary ---
:1935 [facility] Address [address] [place] [address] Care Team Providers Name Role Phone Unavailable Primary Care Provider Unavailable Encounter Details Date Type Department Care Team Description 04/24/2019 Hospital Division of [place], Cancer Esophagu s Primary Personal History; Encounter Gastroenterology in [place] A, Vicente' s Esophagus [place], [place] CREATIVE DESIGNER, C.N.P. [address] [facility] [address] [place] [address] [place], [place] [phone] Social History Tobacco Use Types Packs/Day Years [...] or relatives? How often do you attend bahai or More than 4 times per year 09/25/2021 jewish services? Do you belong to any clubs or Yes 09/25/2021 organizations such as bahai groups, unions, fraternal or athletic groups, or [...] or slept in a chcf (including now)? Sex Assigned at Date Recorded Male 08/14/2017 2:01 PM CDT documented as of this encounter Last Filed Vital Signs Vital Sign Reading Time Taken Comments Blood Pressure 122/73 04/24/2019 3:47 PM DIRECTORY CLERK Pulse 72 04/24/2019 3:48 PM DIRECTORY CLERK Temperature 36.8 ??C (98.2 ??F) 04/24/2019 2:46 PM DIRECTORY CLERK Respiratory Rate 22 04/24/2019 3:48 PM DIRECTORY CLERK Oxygen Saturation 96% 04/24/2019 3:48 PM DIRECTORY CLERK Inhaled Oxygen Concentration - - Weight - - Height 170.2 cm (5' 7) 04/24/2019 12:40 PM DIRECTORY CLERK Body Mass Index - - documented in this encounter Medications at Time [...] Name Priority Date/Time Associated Diagnosis Comme nts ECG STAT 04/24/2019 3:01 PM Results f or this DIRECTORY CLERK procedure are i n the results section. SURGICAL PATHOLOGY Routine 04/24/2019 2:18 PM Res ults for this DIRECTORY CLERK procedure are i n the results section. UPPER GI ENDOSCOPY Routine 04/24/2019 1:41 PM Cancer Esophagus Results for this DIRECTORY CLERK Primary Personal procedure a re in History the results Vicente's Esophagus section. EGD Routine 04/24/2019 1:41 PM Cancer Esophagus (ESOPHAGEALGASTRODU DIRECTORY CLERK Primary Personal ODENOSCOPY) History Vicente's Esophagus documented in this encounter Results ECG 12 Lead (04/24/2019 3:01 PM DIRECTORY CLERK) P athologist Signature Ventricular Rate 80 BPM MUSE ECG/Min [place] Interval 198 ms MUSE QRSD Interval 152 ms MUSE QT Interval 454 ms MUSE QTC Interval 523 ms MUSE P [place] 77 degrees MUSE R [place] 20 degrees MUSE T Wave [place] 126 degrees MUSE Specimen Anatomical Collection Method Collection Time Receive d Time (Source) Location / / Volume Laterality 04/24/2019 3:01 PM 0 3:12 DIRECTORY CLERK PM DIRECTORY CLERK Impressions MUSE - 04/24/2019 3:12 PM DIRECTORY CLERK Sinus rhythm Premature atrial complexes Left bundle branch block with secondary ST-T abnormalities Prolonged QT When compared with ECG of 14-MAR-2018 11 :33, Significant changes have occurred Reviewed by LUBNA Phipps Narrative This result has an attachment that is no t available. Procedure Note Steve Clayton M.D. - 04/24/2019Formatt ing of this note might be different from the original. IMPRESSION: Sinus rhythm Premature atrial complexes Left bundle branch block with secondary ST-T abnormalities Prolonged QT When compared with ECG of 14-MAR-2018 11 :33, Significant changes have occurred Reviewed by LUBNA Phipps Darnell Fernando APRN, PUBLIC POLICY MANAGER ECG ORDERABLES Performing Organization Address City/State/ZIP Code Phon e Number MUSE MUSE NA Surgical Pathology (04/24/2019 2:18 PM DIRECTORY CLERK) Component Value Ref Test Analysis Performed Pathologis t Range Method Time At Signature 04/25/2019 DTL 2:45 PM DIRECTORY CLERK Participated in Gunnar Gomez 04/25/2019 DTL the [facility] 2:45 PM Interpretation Resident DIRECTORY CLERK Report Diego Cabrera M.D. [phone] 04/25/2019 DTL electronically I verify that I have examined all relevant slides/ma terials 2:45 PM signed by for the specimen(s) and rendered or confirmed the diagnosis. DIRECTORY CLERK Gross Description A: ??Received in formalin labeled with the patien t's name, 04/25/2019 DTL medical record number, and small bowel-biopsy, second part 2:45 PM duodenum are five pale lawrence-pink irregular soft tissues, DIRECTORY CLERK ranging from 0.4-0.6 cm in greatest dimension. Specimens are submitted en toto in cassette A1. ??Grossed by ARG. B: ??Received in formalin labeled with the patient's name, medical record number, and esophagus-biopsy, gastroesophageal junction (esophagus) are five pale lawrence-pink irregular soft tissues, admixed with minute tissue fragments that may not survive processing, the tissues ranging from 0.3-0.6 cm in greatest dimension. Specimens are submitted en toto in cassette B1. ??Grossed by ARG. C: ??Received in formalin labeled with the patient's name, medical record number, and esophagus-biopsy, lower third esophagus are five pale hpk-lhe-rfcvniaenls irregular soft tissues, admixed with minute tissue fragments that may not survive processing, the tissues ranging from 0.4-0.5 cm in greatest dimension. Specimens are submitted en toto in cassette C1. ??Grossed by ARG. Interpretation FINAL DIAGNOSIS 04/25/2019 DTL A. ??Small bowel, 2nd part, endoscopic biopsy: ??Small bowel 2:45 PM mucosa without diagnostic abnormality. Villi and plasma DIRECTORY CLERK cells are present. No evidence of Whipple's disease, celiac sprue, or Giardia. B. ??Esophagus, gastroesophageal junction, endoscopic biopsy: Columnar mucosa with mild chronic inflammation and rare goblet cells. ??No dysplasia. C. ??Esophagus, lower third, endoscopic biopsy: ??Specialize d Vicente's mucosa with mild active chronic inflammation and occasional Greenfield cells. ??No dysplasia. Specimen (Source) Anatomical Collection Method Collection Time Re ceived Time Location / / Volume Laterality Biopsy (Small 04/24/2019 2:18 PM Bowel) DIRECTORY CLERK Biopsy 04/24/2019 2:23 PM (Esophagus) DIRECTORY CLERK Biopsy 04/24/2019 2:24 PM (Esophagus) DIRECTORY CLERK Narrative This result has an attachment that is no t available. Darrell Carranza M.D. LAB SURG PATH ORDERABLES Performing Organization Address City/State/ZIP Code Phon e Number [facility] - [address] [place], [place] [address] [facility] [place] [address] [facility] [address] Upper GI Endoscopy (04/24/2019 1:41 PM DIRECTORY CLERK) Specimen (Source) Anatomical Collection Method Collection Time Re ceived Time Location / / Volume Laterality 04/24/2019 1:41 PM DIRECTORY CLERK Impressions [employer] - 04/24/2019 2:49 PM DIRECTORY CLERK Post-op Diagnoses: ? - ? 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 Biopsied. ? Treated with APC. ? - 2 cm hiatal hernia. ? - Normal examined duodenum. Biops ied. Narrative [employer] - 04/24/2019 2:49 PM DIRECTORY CLERK Reymundo 6 GI GI Patient Name: Nii Franz Date of : 1935 Age: 84 Gender: Male Procedure Date: 04/24/2019 Procedure: ? Upper GI endoscopy Providers: ? Darrell Carranza MD, Richa Carbone MD Referring Provider: ?Alyx Villafana Pre-op Diagnoses: ?Vicente's h igh grade dysplasia, Follow-up of ? pre vious ablation treatment of Vicente's esophagus, ? 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 - The patient will be observed po st-procedure, until all discharge ? criteria are met. ? - Soft diet for 3 days. ? - Await pathology results. Findings: ? Esophagogastric landmarks were id entified: the Z-line was found at 38 ? cm, the gastroesophageal junction was found at 39 cm and the site of ? hiatal narrowing was found at 41 cm from the incisors. ? The esophagus and gastroesophagea l junction were examined with white ? light and narrow band imaging (NB I) from a forward view and retroflexed ? position. There were esophageal m ucosal changes classified as Vicente's ? stage C0-M1 per Roland criteria. These changes involved the mucosa at ? the upper extent of the gastric f olds (39 cm from the incisors) ? extending to the Z-line (38 cm fr om the incisors). No visible ? abnormalities were present. Salmo n colored mucosa was biopsied in four ? quadrants with a cold jumbo force ps for histology at intervals of 1 cm ? at the GEJ and in the lower third of the esophagus(2 bottles separately) ? Estimated blood loss: none. . ? Coagulation for tissue destructio n using argon plasma at 1 liter/minute ? and 60 louis was successful. ? A 2 cm hiatal hernia was present. ? The [...] personally pe rformed the entire procedure. Darrell Carrazna MD 04/24/2019 2:49:34 PM This report has been signed electronical ly. Richa Carbone MD Number of Addenda: 0 Alyx Villafana APRN, C.N.P. GI PROCEDURE ORDERABLES Performing Organization Address City/State/ZIP Code Phon e Number [employer] NA documented in this encounter Visit Diagnoses Diagnosis Cancer Esophagus Primary Personal Histor y Vicente's Esophagus documented in this encounter
--- OUTSIDE RECORDS SUMMARY | 2022-01-16 15:58 | XMS_ITS | Encounter Summary ---
:1935 Author Organization [facility] Address [address] [place] [address] Care Team Providers Name Role Phone Unavailable Primary Care Provider Unavailable Reason for Visit Reason Onset Date Comments biopsy results 04/18/2018 Encounter Details Date Type Department Care Team Description 04/18/2018 Clinical Communication Department of Dimitris Tyler b iopsy results Urology in [place], [place] [address] [place] [address] [address] [place] [phone] Social History Tobacco Use Types Packs/Day Years [...] this encounter Miscellaneous Notes Telephone Encounter - Dimitris Tyler M.D. - 04/19/2018 10:07 AM CST Called patient regarding his pathology results. Patient has low-grade superficial bladder cancer. This carries excellent prognosis. Patient needs to be followed in 3 months with office cystoscopy and urine cytology. We will continue every 3 month cystoscopy for total of a year and then go to every 6 mo nt for a year. After that, will do annual cystoscopy. T TENDER Telephone Encounter - Mary Ann Mcgee - 04/18/2018 3:20 PM CST Mrs. Franz calls as they have not heard back regarding Nii's pathology results. They have seen them online but would like to know why they have not received a call yet and also what the results mean. She also said that Nii had his catheter removed locally yesterday. She said he was up every hour last night having to void and is wondering if that is normal following catheter removal. T TENDER documented in this encounter Plan of Treatment Not on filedocumented as of this encounter Visit Diagnoses Diagnosis Malignant Neoplasm Of Bladder (HCC) - Pr imary documented in this encounter
--- OUTSIDE RECORDS SUMMARY | 2022-01-16 15:58 | XMS_ITS | Encounter Summary ---
:1935 Author Organization [facility] Address [address] [place] [address] Care Team Providers Name Role Phone Unavailable Primary Care Provider Unavailable Reason for Visit Reason Onset Date Comments ORDER FOR CATH REMOVAL 04/13/2018 Encounter Details Date Type Department Care Team Description 04/13/2018 Clinical Communication Department of RAFAEL Francisco FOR CATH Urology in [place] Estevez M.D. REMOVAL [place], [address] [place] [address] [place] [address] [place], [place] [phone] (Work) [phone] Social History Tobacco Use Types Packs/Day Years [...] this encounter Miscellaneous Notes Telephone Encounter - Jamilah Guerrero - 04/17/2018 8:39 AM CST Order printed and faxed to Dr. Thomas's office at [facility]. LION MANAGER Telephone Encounter - Ida Christiansen - 04/16/2018 12:53 PM CST Order from Dr. Maddox Faxed to: Attn: Lisa/Jordana Thomas's Office FAX [phone] (this is correct FAX) LION MANAGER Telephone Encounter - Jamilah Guerrero - 04/13/2018 2:12 PM CST of patient called. Patient has an indwelling catheter. Dr. Maddox advised cath could be pulled in [place] on Monday. LMD would like an order to pull the cath, the type of scan needed and type of urine test with results to be faxed back to [place]. Order needs to go to [facility] at [phone], attention Dr. Valentino Thomas. Thank you. LION MANAGER documented in this encounter Plan of Treatment Not on filedocumented as of this encounter Visit Diagnoses Diagnosis Tumor Bladder Uncertain Behavior - Prima ry documented in this encounter
--- OUTSIDE RECORDS SUMMARY | 2022-01-16 15:58 | XMS_ITS | Encounter Summary ---
:1935 Author Organization [facility] Address [address] [place] [address] Care Team Providers Name Role Phone Unavailable Primary Care Provider Unavailable Reason for Visit Reason Comments Bladder Cancer Encounter Details Date Type Department Care Team Description 08/09/2018 Procedure visit Department of Urology Guillermina Velasquez M. D. Malignant Neoplasm Of in [place], Dimitris Tyler M.D. [address] [place] [address] Bladder (HCC) [place] [address] [place] [phone] Social History Tobacco Use Types Packs/Day Years [...] or relatives? How often do you attend restorationism or More than 4 times per year 09/25/2021 judaism services? Do you belong to any clubs or Yes 09/25/2021 organizations such as restorationism groups, unions, fraternal or athletic groups, or [...] documented as of this encounter Procedure Notes Danyell De Paz M.D. - 08/09/2018 1:30 PM CDTAssociated Order(s): URO CYSTOSCOPY (SPECIFIC PROVIDER) Pre-Procedure Diagnose(s): Malignant Neoplasm Of Bladder (HCC) Post-Procedure Diagnose(s): Malignant Neoplasm Of Bladder (HCC) Cystoscopy (specific provider) Date/Time: 08/09/2018 6:47 PM Performed by: DANYELL DE PAZ Authorized by: GUILLERMINA VELASQUEZ Additional procedures performed: cystoscopy Consent: Consent obtained: Verbal Consent given by: Patient The benefits, risks and alternatives to the procedure and the potential need for sedation or anesthesia as well as the names, roles, and responsibilities of healthcare team members performing significant interventional tasks were discussed with the patient and/or decision maker.: yes The benefits, risks and alternatives to the possible need for blood products were discussed with the patient and/or decision maker.: Not addressed Boone protocol: All relevant documentation and testing were reviewed and available. All required blood products, implants, devices and/or special equipment were made available as applicable. The pre-procedure verification was conducted, the correct site was marked if required, and the procedural time out was conducted prior to performing the procedure and confirmed in a procedural pause.: yes Pre-procedure details: Procedure purpose: Diagnostic Appropriate hand hygiene, gown, cap, mask, protective eyewear, sterile gloves, skin preparation, sterile drape, and strict aseptic technique were utilized as applicable for the procedure.: yes Site preparation: Povidone-iodine Sedation/Anesthesia (see MAR for exact dosages): Anesthesia method: None Procedure details: Imaging obtained: no Anterior urethra: Normal: yes Posterior urethra: Normal: yes Prostate: Characteristics: Hyperplasia - bilobar Sphincter: Characteristics: Coapting Ureters: Characteristics: Effluxing clear urine Effluxing clear urine - side: Bilateral Bladder: Normal: yes Quality of urine: Clear Residual upon entry: Small Retroflex view: Normal: yes Impression: Negative cystoscopy and no evidence of recurrent disease Post-procedure details: Procedure completed successfully: yes Complications: no apparent complications Comments: Low-grade, multifocal, 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 Intermediate risk per AUA non muscle invasive bladder cancer guidelines. Been asymptomatic without gross hematuria since resection. Urine cytology negative. Plan for recheck in three months with cystoscopy. Will need rechecks every 3 to 6 months for the twoyears after initial resection. documented in this encounter Plan of Treatment Scheduled Orders Name Type Priority Associated Diagnoses Order S chedule Dipstick, POCT, Point of Care Routine Malignant Neoplasm Of Or dered: 08/09/2018 Urine (nursing, Testing-Docked Bladder (HCC) interfaced) Device documented as of this encounter Procedures Procedure Name Priority Date/Time Associated Comments Diagnosis [place] CYSTOURETHROSCOPY Routine 08/09/2018 1:30 Malignant Neoplas m Results for this PM CDT Of Bladder (HCC) procedure a re in the results section. DIPSTICK, POCT, U (DIPC1) Routine 08/09/2018 1:23 Results for this PM CDT procedure are i n the results section. documented in this encounter Results OH CYSTOURETHROSCOPY (08/09/2018 1:30 PM CDT) Specimen (Source) [...] the patient and/or decision maker.: ??Not addressed Boone protocol: ??All relevant documentation and testin g [...] initial resection. Guillermina Velasquez M.D. UROLOGY ORDERABLES (ABNORMAL) Dipstick, POCT, Urine (08/09/2018 1:23 PM CDT) [facility] gist Method Time Signature Glucose, Negative Negative 08/09/2018 POC [facility]A POCT, U 1:25 PM CDT PERFORMING LABS Ketone, POCT, Negative Negative 08/09/2018 POC [place]A U 1:25 PM CDT PERFORMING LABS Specific 1.010 1.001 - 08/09/2018 POC CHANDRA Mcclure, 1.035 1:25 PM CDT PERFORMING POCT, U LABS Blood, POCT, Trace (A) Negative 08/09/2018 POC [place]A U 1:25 PM CDT PERFORMING LABS pH, POCT, 6.5 5.0 - 8.0 08/09/2018 POC [place] Urine 1:25 PM CDT PERFORMING LABS Protein, Negative Negative 08/09/2018 POC [place]A POCT, U 1:25 PM CDT PERFORMING LABS Nitrites, Negative Negative 08/09/2018 POC [place]A POCT, U 1:25 PM CDT PERFORMING LABS Leukocytes, Moderate (A) Negative 08/09/2018 POC [place]AN[place]A POCT, U 1:25 PM CDT PERFORMING LABS Specimen Anatomical Collection Method Collection Time Receive d Time (Source) Location / / Volume Laterality Urine 08/09/2018 1:23 PM 9 1:25 CDT PM CDT Unknown Provider LAB POCT ORDERABLES - DEVICE Performing Organization Address City/State/ZIP Code Phon e Number [facility] PERFORMING LABS [address] [place] [address] documented in this encounter Visit Diagnoses Diagnosis Malignant Neoplasm Of Bladder (HCC) documented in this encounter
--- OUTSIDE RECORDS SUMMARY | 2022-01-16 15:59 | XMS_ITS | Encounter Summary ---
:1935 Author Organization [facility] Address [address] [place] [address] Care Team Providers Name Role Phone Unavailable Primary Care Provider Unavailable Reason for Visit Reason Comments Med Refill Encounter Details Date Type Department Care Team Description 02/09/2018 Refill Division of Gastroenterology in Alyx Villafana Med Refill [place], [place] DIGITAL MARKETING INTERN, C.N.P. [address] [place] [address] [address] [place] [address] [place], [place] [phone] (Wo rk) Social History Tobacco Use Types [...]
--- OUTSIDE RECORDS SUMMARY | 2022-01-16 15:59 | XMS_ITS | Encounter Summary ---
:1935 Author Organization [facility] Address [address] [place] [address] Care Team Providers Name Role Phone Unavailable Primary Care Provider Unavailable Reason for Visit Outpatient (Routine) - Closed Specialty Diagnoses / Referred By Referred To Cont act Procedures Contact Gastroenterology and Alyx Villafana [facility] Hepatology MARGOT Elizabeth, C.N.P. [address] [place] [address] Referral ID Status Reason Start Date Expiration Date Visits Requ ested Visits Authorized [id number] Closed 01/01/2018 01/01/2019 1 1 Encounter Details Date Type Department Care Team Description 03/14/2018 Office Visit Division of Alyx Villafana Vicente's E sophagus (Primary Dx); Gastroenterology in MARGOT Elizabeth, C.N .P. Malignant Neoplasm Of Esophagus (HCC) [place], [place] [address] [place] [address] [address] [place] [phone] [phone] Social History Tobacco Use Types Packs/Day Years [...] 09/25/2021 organizations such as muslim groups, unions, fraPharmacopeia or athletic groups, or school groups? How [...] documented as of this encounter Progress Notes Alyx Villafana, MARGOT, C.N.P. - 03/14/2018 1:00 PM CST Date of visit: 03/14/2018 Supervising physician: Dr. Carranza Reason for visit: HPI: Nii Franz is a very pleasant 82 y.o.male here today for follow up. The endoscopic history is as follows: 03/2013- EGD for anemia, ulcer at 35 cm, biopsy shows adenocarcinoma in a background of Vicente's Referral to [facility] 04/2013- EGD/EUS, BE 30-40 cm, nodularity, EMR, [...] well differentiated adenocarcinoma, no LVI, negative margins His??current anti-reflux regimen is Nexium 40 mg taken twice daily prior to morning and evening meals, 300 mg Zantac at bedtime, and Carafate after meals and at bedtime. ??He has had no hospitalizations or updates to his medical history since his last visit. He had a follow-up PET scan on February 05. There was no metabolically active disease in the esophagus, lungs, or lymph node groups. He did have mucosal thickening in the right urinary bladder as well as prostatic enlargement. Review of Systems: No fevers, chills, diarrhea, constipation, unintended weight loss, anorexia, nausea, vomiting, melena, hematochezia, dysphagia, odynophagia, or abdominal pain. 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 Never smoker. No alcohol. 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 Carranza. Both EGD and EUS were performed. He had a small area of residual Vicente's which was biopsied and treated with spray cryotherapy. EUS showed wall thickening in the lower 3rd of the esophagus which was sampled with fine-needle aspiration. There was no significant lymphadenopathy. I will notify him of biopsy results when those are available. He can plan on returning in three months for follow-up. #2 GERD He should continue on Nexium 40 mg twice daily prior to morning and evening meals, Zantac at bedtime, and Carafate after meals. OGRAPH DESIGNER documented in this encounter Plan of Treatment Not on filedocumented as of this encounter Visit Diagnoses Diagnosis Vicente's Esophagus - Primary Malignant Neoplasm Of Esophagus (HCC) documented in this encounter
--- OUTSIDE RECORDS SUMMARY | 2022-01-16 15:59 | XMS_ITS | Encounter Summary ---
:1935 Author Organization [facility] Address [address] [place] [address] Care Team Providers Name Role Phone Unavailable Primary Care Provider Unavailable Encounter Details Date Type Department Care Team Description 08/16/2017 Orders Only Division of Gastroenterology Frankie Villafana in [facility] lizett FROST, C.N.P. [address] [facility] [address] [place] [address] [place], [place] [phone] (Wo rk) Social History Tobacco Use Types [...] More than 4 times per year 09/25/2021 episcopalian services? Do you belong to any clubs [...] slept in a skilled nursing (including now)? Sex Assigned at Date Recorded Male 08/14/2017 2:01 PM CDT documented as of this encounter Plan of Treatment Not on filedocumented as of this encounter Visit Diagnoses Not on filedocumented in this encounter
--- OUTSIDE RECORDS SUMMARY | 2022-01-16 15:59 | XMS_ITS | Encounter Summary ---
:1935 Author Organization [facility] Address [address] [place] [address] Care Team Providers Name Role Phone Unavailable Primary Care Provider Unavailable Encounter Details Date Type Department Care Team Description 03/14/2018 Ancillary Procedure Department of Gastroenterology Social History [...] More than 4 times per year 09/25/2021 [facility]? Do you belong to any clubs [...] Date/Time Associated Comments Diagnosis GASTROENTEROLOGY IMAGE Routine 03/14/2018 7:55 Re sults for this EXAM AM REPAIRER AND CHECKER procedure are i n the results section. documented in this encounter Results GASTROENTEROLOGY IMAGE EXAM (03/14/2018 7:55 AM REPAIRER AND CHECKER) Specimen (Source) Anatomical Collection Method Collection Time Re ceived Time Location / / Volume Laterality 03/14/2018 7:51 AM REPAIRER AND CHECKER Narrative [facility] - 03/14/2018 10:10 AM REPAIRER AND CHECKER This order has been created and [...]
--- OUTSIDE RECORDS SUMMARY | 2022-01-16 15:59 | XMS_ITS | Encounter Summary ---
:1935 Author Organization [facility] Address [address] [place] [address] Care Team Providers Name Role Phone Unavailable Primary Care Provider Unavailable Encounter Details Date Type Department Care Team Description 12/20/2017 Anesthesia Event Division of Gastroenterology Clara Chen, in [facility] MARGOT, [employer] DES[employer] [address] [place] [address] [address] [place] [address] [place], [place] [phone] Anesthesia Record Procedure Summary Procedure Name Responsible Anesthesia Start Anesthesia Stop Time Anesthesiologist Time EGD Surjit Chen, MARGOT, DANIEL 12/20/17 0958 12/20 1037 (ESOPHAGEALGASTRODU ODENOSCOPY) Events Date Time Event Comment 12/20/2017 0957 In Room 0958 An Start Machine/Equipmen t Checked Infection Precautions Foll owed Procedure/Site Verified NPO Sta tus Verified Supine Standard ASA Mon itors Applied 1000 Turnover to Proceduralist 1005 Proc Start 1034 Proc Fin 1037 Turnover to ANE Staff 1037 an stop data 1037 An End I completed my h andoff to the receiving staff during [facility] we 1. Identified the patient 2. Ident ified the responsible provider 3. Revi ewed the pertinent medical history 4. Discu ssed the surgical course 5. Reviewed intra-o p anesthesia management and issues during an esthesia 6. Set expectations for post-procedure period 7. Allowed opportun ity for questions and acknowledgement of understanding. Name Total propofol 10 mg/mL infusion 318.94 mg propofol 10 mg/mL injection 60 mg lidocaine 2% (mg) injection 60 mg HYDROmorphone 2 mg/mL injection 0.4 mg Lactated Ringers Free Drip 600 mL Agents No agents on file. Blood No blood administrations on file. Lines, Drains, and Airways Type Details Placement Removal Peripheral IV Placement Date: 12/20/17; 12/20/17915 by Kayleigh leyva, 12/20/17 1148 by Placement Time: 915; Bud Rojas Re becca L, Catheter Size: 20 G; R.N. Orientation: Right; Location: Hand; Site Prep: Alcohol; Technique: Anatomical landmarks; Inserted by: Anabell; Insertion Attempts: 1; Removal Date: 12/20/17; Removal Time: 1147 documented in this encounter Social History Tobacco [...] or slept in a assisted (including now)? Sex Assigned at Date Recorded Male 08/14/2017 2:01 PM CDT documented as of this encounter OR Notes Anesthesia Postprocedure Evaluation - Surjit Chen APRN, CRNA - 12/20/2017 10:40 AM CDT Patient: Nii Franz Procedure Summary Date: 12/20/17 Room / Location: Division of Gastroenterology in [place], [place] Anesthesia Start: 957 Anesthesia Stop: 1037 Procedure: EGD (ESOPHAGEALGASTRODUODENOSCOPY) Diagnosis: Vicente's Esophagus Scheduled Providers: Surjit Chen APRN, CRNA Responsible Provider: Surjit Chen APRN, CRNA Anesthesia Type: MAC ASA Status: 2 Anesthesia Type: MAC Last vitals BP (!) 164/63 (12/20/17924) Temp 37 ??C (12/20/17923) Pulse 65 (12/20/17925) Resp 14 (12/20/17925) SpO2 98 % (12/20/17925) Anesthesia Post Evaluation 12/20/2017 10:44 AM Patient Disposition: dismissal Cardiovascular status: hemodynamics (HR & BP) acceptable Respiratory status: patent airway with spontaneous effort Temperature: normothermic Oxygen requirements: room air Level of consciousness: awake Pain score: pain adequately controlled and/or at baseline Post Op nausea/vomiting: none Hydration status: euvolemic Anesthesia Preprocedure Evaluation - Surjit Chen APRN, CRNA - 12/20/2017 9:51 AM CDT Anesthesia Pre-Evaluation Pertinent components of the patient's history including current problem list, medical history, surgical history, family history, social history, medications and allergies were reviewed and updated as appropriate. The patient was examined and the Pre-op diagnosis, planned procedure, and H&P were reviewed and remain unchanged. PROBLEM LIST Relevant Problems ONC (+) Malignant Neoplasm Of Esophagus (HCC) OBJECTIVE PHYSICAL EXAMINATION Airway (HEENT) Mallampati: I TM Distance: >3 FB Neck ROM: Full Cardiovascular Rhythm: Regular Rate: Normal Cardiovascular Assessment: Normal Functional Capacity: >4 METS Pulmonary Pulmonary Assessment: Clear Neurological Normal Dental Normal General / Constitutional Normal ASSESSMENT / PLAN ANESTHESIA PLAN ASA: 2 Anesthesia Plan: MAC Patient seen and allergies reviewed; anesthesia plan and risks discussed directly with patient / legal guardian, or through an x ray tech; patient evaluated and approved for anesthesia / sedation. The use of blood products not discussed documented in this encounter Plan of Treatment Not on filedocumented as of this encounter Visit Diagnoses Not on filedocumented in this encounter Administered Medications Inactive Administered Medications - up to 3 most recent administrations Medication Order MAR Action Action Date Dose Rate Site HYDROmorphone injection Given 12/20/2017 10:11 AM CDT 0.4 mg (DILAUDID) As needed, severe pain or score 7-10 of 10, Starting on Mon12/20/17 at 1011, Anesthesia Intra-op lactated ringers New Bag 12/20/2017 10:30 AM CDT intravenous, Continuous Infusion: Per Instructions PRN, Starting on Mon12/20/17 at 0955, Anesthesia Intra-op New Bag 12/20/2017 9:55 AM CDT lidocaine (PF) (cardiac) injection Given 12/20/2017 9:58 AM CDT 60 mg intravenous, As needed, Starting on Mon12/20/17 at 0958, Anesthesia Intra-op propofol 10 mg/mL infusion Rate/Dose 12/20/2017 120 mcg/kg/min 62.1 mL/hr (DIPRIVAN) Change 10:10 AM CDT intravenous, Continuous Infusion: Per Instructions PRN, Starting on Mon12/20/17 at 0958, Anesthesia Intra-op Rate/Dose Change 12/20/2017 10:00 AM CDT 100 mcg/kg/min 51.7 mL/hr New Bag 12/20/2017 9:58 AM CDT 150 mcg/kg/min 77.6 mL/hr propofol injection (DIPRIVAN) Given 12/20/2017 10:10 AM CDT 20 mg intravenous, As needed, Starting on Mon12/20/17 at 0958, Anesthesia Intra-op Given 12/20/2017 9:58 AM CDT 40 mg documented in this encounter
--- OUTSIDE RECORDS SUMMARY | 2022-01-16 15:59 | XMS_ITS | Encounter Summary ---
:1935 Author Organization [facility] Address [address] [place] [address] Care Team Providers Name Role Phone Unavailable Primary Care Provider Unavailable Reason for Visit Reason Comments Vicente's Esophagus THE PATIENT IS BEING SEEN IN THE ESOPHAGEAL CLINIC. Outpatient (Routine) - Closed Specialty Diagnoses / Referred By Referred To Cont act Procedures Contact Gastroenterology and [facility] Hepatology MARGOT Elizabeth, C.N.P. [address] [place] [address] Referral ID Status Reason Start Date Expiration Date Visits Requ ested Visits Authorized [id number] Closed 08/21/2017 08/21/2018 1 1 Encounter Details Date Type Department Care Team Description 12/20/2017 Office Visit Division of [facility] Es ophagus With High Grade Dysplasia (Primary Dx); Gastroenterology in MARGOT Elizabeth, C.N .P. Cancer Esophagus Primary Personal Histor y [place], [place] [address] [facility] [address] [place] [phone] Social History Tobacco Use Types Packs/Day Years [...] Progress Notes Alyx Villafana, MARGOT, C.N.P. - 12/20/2017 1:40 PM CDT Date of visit: 12/20/2017 Supervising physician: Dr. 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 He has been seen at [facility] since April 2013. ??He underwent his initial endoscopy for the indication of anemia. ??He was noted to have an ulceration which demonstrated moderately differentiated invasive adenocarcinoma in a background of Vicente's with high-grade dysplasia. ??Over the past two years, he has beentreated with endoscopic mucosal resection, radiofrequency ablation, and cryotherapy. ??He continuesdto have nodularity within his Vicente's segment. ??Mucosal resections are becoming more difficult due to underlying scar tissue. ??He started with 10 cm of Vicente's. ??His most recent endoscopy was inMay of 2018. ??At that time, residual Vicente's C0-M2, showing minimal improvement from his last balloon cryotherapy treatment. ??Biopsies were taken, and again the Vicente's was ablated with balloon cryotherapy. Histopathology showed Vicente's, indefinite for dysplasia. His current anti- reflux regimen is Nexium 40 mg taken twice daily prior to morning and evening meals, 300 mg Zantac at bedtime, andCarafate after meals. He discontinued taking Carafate at bedtime because it was causing him insomnia. He has had no hospitalizations or updates to his medical history since his last visit. Review of Systems: No fevers, chills, diarrhea, constipation, unintended weight loss, anorexia, nausea, vomiting, melena, hematochezia, dysphagia, odynophagia, or abdominal pain. Medical/Surgical history: 1. ??Hypothyroidism. 2. ??Obstructive sleep apnea. 3. ??Hyperlipidemia. 4. ??Appendectomy. 5. ??Cataract surgery. 6. ??Tonsillectomy. 7. ??History of anemia. 8. 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 9. ??Colon polyp cancer in situ at age 40. 10. ??Meningioma. 11. ??Parkinson's disease. Social history: Mr. Franz is retired. 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 ??He is a never smoker but was exposed to significant amount of secondhand smoke. ??He denies any alcohol use, and he denies any prior history of recreational drug use. 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 Carranza. He had a small amount of residual Vicente's remaining. Two endoscopic mucosal resections were performed and the remainder was treated with APC. I will notify him of pathology results when thoseare available. We will likely plan on him returning in about four months for endoscopic follow-up. #2 GERD He should continue on Nexium 40 mg twice daily prior to morning and evening meals, Zantac at bedtime, and Carafate after meals. documented in this encounter Plan of Treatment Not on filedocumented as of this encounter Visit Diagnoses Diagnosis Barretts Esophagus With High Grade Dyspl joi - Primary Cancer Esophagus Primary Personal Histor y documented in this encounter
--- OUTSIDE RECORDS SUMMARY | 2022-01-16 15:59 | XMS_ITS | Encounter Summary ---
:1935 Author Organization [facility] Address [address] [place] [address] Care Team Providers Name Role Phone Unavailable Primary Care Provider Unavailable Reason for Visit Reason Comments Cystoscopy Blood in Urine Encounter Details Date Type Department Care Team Description 03/16/2018 Procedure visit Department of Urology in Must[place]ha Mir M.D. [address] [place] [phone] Hematuria [place], [place] Faiza Man, L.P.N. [address] [place] [phone] [place] [phone] Social History Tobacco Use Types Packs/Day [...] or relatives? How often do you attend zoroastrian or More than 4 times per year 09/25/2021 evangelical services? Do you belong to any clubs or Yes 09/25/2021 organizations such as zoroastrian groups, unions, fraternal or athletic groups, or [...] documented as of this encounter Procedure Notes Kelly Nuñez M.D. - 03/16/2018 10:00 AM CSTAssociated Order(s): URO CYSTOSCOPY (GENERAL) Pre-Procedure Diagnose(s): Hematuria Post-Procedure Diagnose(s): Hematuria URO Cystoscopy (general) Date/Time: 03/16/2018 10:17 AM Performed by: KELLY NUÑEZ Authorized by: MERCEDEZ MIR Additional procedures performed: cystoscopy Care team members present: Faiza Man LPN Consent: Consent obtained: Verbal Consent given by: Patient [place] protocol: All relevant documentation and testing were reviewed and available. All required blood products, implants, devices and/or special equipment were made available as applicable. The pre-procedure verification was conducted, the correct site was marked if required, and the procedural time out was conducted prior to performing the procedure and confirmed in a procedural pause.: yes Pre-procedure details: Procedure purpose: Diagnostic Site preparation: Povidone-iodine Sedation/Anesthesia (see MAR for exact dosages): Anesthesia method: None Procedure details: Anterior urethra: Normal: yes Prostate: Characteristics: Hyperplasia - bilobar and median lobe present Sphincter: Characteristics: Coapting Bladder: Normal: no Trabeculation: Moderate Lesions: Tumor lesion (largest) Largest tumor lesion: Character: Papillary Location: Trigone Appearance: Suspicious Cellules: Trigone Stones present: calcification on bladder masses. Capacity: Large Quality of urine: Clear Prostate: Character: Intravesical protrusion Impression: Suspicious mass Urine cytology negative CT urogram for outside hospital demonstrates filling defects along right lateral bladder wall and posterior wall. No apparent filling defects in the bilateral upper tract though the mid ureter bilaterally are incompletely opacified. No evidence of nephrolithiasis bilaterally. No evidence of hydronephrosis bilaterally Flexible cystoscopy performed. This demonstrated an unremarkable anterior urethra. Prostatic urethrademonstrated bilobar hypertrophy. Upon entry into the bladder, the mucosa demonstrated multiple small cellules and moderate trabeculation. Papillary tumor with calcification was seen along the right lat eral bladder wall, posterior bladder wall and right mary beth trigone. Overall area involved approximately 4 cm. Retroflexed view negative for lesions at the bladder neck however did show intravesical protrusion of the prostate with median lobe. Post-procedure details: Procedure completed successfully: yes Complications: no apparent complications Comments: Findings discussed with patient. He will follow up in clinic today for discussion of TUR, possible right ureteral stent placement. MUSEUM AIDE documented in this encounter Plan of Treatment Not on filedocumented as of this encounter Procedures Procedure Name Priority Date/Time Associated Comments Diagnosis [place] CYSTOURETHROSCOPY Routine 03/16/2018 10:00 Hematuria Res ults for this AM ART MUSEUM AIDE procedure are i n the results section. documented in this encounter Results [place] CYSTOURETHROSCOPY (03/16/2018 10:00 AM ART MUSEUM AIDE) Specimen (Source) Anatomical Location Collection Method / Collectio n Time Received Time / Laterality Volume Narrative Kelly Nuñez M.D. - 03/16/2018 10:00 AM ART MUSEUM AIDE Kelly Nuñez M.D. ? 03/16/2018 10:52 AM URO Cystoscopy (general) Date/Time: 03/16/2018 10:17 AM Performed by: KELLY NUÑEZ Authorized by: MERCEDEZ MIR Additional procedures performed: cystosc opy ?? Care team members present: ??Faiza Man LPN Consent: ??Consent obtained: ??Verbal ??Consent given by: ??Patient [place] protocol: ??All relevant documentation and testin g [...] yes ?? Pre-procedure details: ??Procedure purpose: ??Diagnostic ??Site preparation: ??Povidone-iodine Sedation/Anesthesia (see MAR for exact d osages): ??Anesthesia method: ??None Procedure details: Anterior urethra: ??Normal: yes ?? Prostate: ??Characteristics: ??Hyperplasia - bilo bar and median lobe present Sphincter: ??Characteristics: ??Coapting Bladder: ??Normal: no ?Trabeculation: ??Moderate ??Lesions: ??Tumor lesion (largest) Largest tumor lesion: ??Character: ??Papillary ??Location: ??Trigone ??Appearance: ??Suspicious ??Cellules: ??Trigone ??Stones present: calcification on blad bakari masses. ?Capacity: ??Large ??Quality of urine: ??Clear Prostate: ??Character: ??Intravesical protrusion ??Impression: ??Suspicious mass ??Urine cytology negative CT urogram for outside hospital demonstr ates filling defects along right lateral bladder wall and posterior wall. ??No apparent filling defects in the bilateral upper tract though the mid ureter bilaterally are incompletely opacified. ??No evidence of nephrolithiasis bilaterally. ??No evidence of hydronephrosis bilaterally Flexible cystoscopy performed. ??This de monstrated an unremarkable anterior urethra. ??Prostatic urethra demonstrate d bilobar hypertrophy. ??Upon entry into the bladder, the mucosa demonstrate d multiple small cellules and moderate trabeculation. ??Papillary tumo r with calcification was seen along the right lateral bladder wall, posterio r bladder wall and right mary beth trigone. ??Overall area involved approxi mately 4 cm. Retroflexed view negative for lesions at the bladder neck however did show intravesical protrusion of the prostate with median lobe. Post-procedure details: ??Procedure completed successfully: yes ?Complications: no apparent complicati ons ?? Comments: ?? Findings discussed with patient. He will follow up in clinic today for discussion of TUR, possible right ureter al stent placement. Mercedez Mir M.D. UROLOGY ORDERABLES documented in this encounter Visit Diagnoses Diagnosis Hematuria documented in this encounter
--- OUTSIDE RECORDS SUMMARY | 2022-01-16 15:59 | XMS_ITS | Encounter Summary ---
:1935 Author Organization [facility] Address [address] [place] [address] Care Team Providers Name Role Phone Unavailable Primary Care Provider Unavailable Encounter Details Date Type Department Care Team Description 12/20/2017 Hospital Division of Alyx Villafana APRN, C.N.P. [address] [place] [address] Vicente's Encounter Gastroenterology in Surjit Chen, MARGOT, WILDLIFE AND GAME PROTECTOR [address] [place] [id number] Esophagus [place], [place] [address] [place], [place] [phone] Social History Tobacco Use Types Packs/Day [...] Sign Reading Time Taken Comments Blood Pressure 195/159 12/20/2017 11:20 AM CDT Pulse 61 12/20/2017 11:24 AM CDT Temperature 36.7 ??C (98.1 ??F) 12/20/2017 10:42 AM CDT Respiratory Rate 16 12/20/2017 11:24 AM CDT Oxygen Saturation 95% 12/20/2017 11:24 AM CDT Inhaled Oxygen Concentration - - Weight - - Height 175.3 cm (5' 9) 12/20/2017 9:24 AM CDT Body Mass Index - - documented in this encounter Medications at Time of Discharge Medication Sig Dispensed Refills Start Date End Date fluticasone (FLONASE) 50 Administer 1 spray 0 mcg/actuation nasal spray into each nostril daily as needed for rhinitis. loratadine (CLARITIN) 10 Take 1 tablet by 0 09/30 mg tablet mouth daily as needed for allergies. melatonin 3 mg tablet Take 3 mg by mouth 0 at bedtime. pantoprazole (PROTONIX) Take 1 tablet by 0 2016 40 mg EC tablet mouth 2 (two) times a day. One tablet 30 minutes prior to morning and evening meals peg 400-propylene glycol Administer 1 drop 0 09/2013 (SYSTANE) 0.4-0.3 % into both eyes 4 ophthalmic solution (four) times a day as needed. simvastatin (ZOCOR) 20 mg Take 1 tablet by 0 03/27 tablet mouth daily. tamsulosin (FLOMAX) 0.4 Take 0.4 mg by mouth 0 mg 24 hr capsule daily. venlafaxine XR Take 150 mg by mouth 0 10/31/2017 (EFFEXOR-XR) 150 mg 24 hr daily with capsule breakfast. vit Take 1 tablet by 0 03/10/2015 C/E/Zn/coppr/lutein/zeaxa mouth 2 (two) times n (PRESERVISION AREDS 2 a day. ORAL) acetaminophen (TYLENOL) Take 1 tablet by 0 201307/09/2019 325 mg tablet mouth as needed. 1 or 2 325mg prn/ or 1 or 2 500mg prn for pain. calcium carb/vit Take 1 tablet by 0 07/21/2015 D3/minerals (CALCIUM mouth daily. CARBONATE-VIT D3-MIN ORAL) diphenhydrAMINE 12.5 mg/5 Take 15 mL by mouth 480 mL 0 0 12/20/2017 03/14/2018 mL-lidocaine 2%-antacid 3 (three) times a oral rinse day as needed (pain). fluticasone (VERAMYST) Administer 1 spray 0 09/2905/27/2019 27.5 mcg/actuation nasal into affected spray nostril(s) daily as needed for rhinitis. levothyroxine (SYNTHROID, Take 1 tablet by 0 09/201305/29/2019 LEVOTHROID) 100 mcg mouth every morning. tablet 137 mcg lidocaine (lidocaine) 2 % Apply 15 mL to the 100 mL 1 03/14/2018 mucosal solution mouth or throat every 4 (four) hours as needed (pain). Mix 1:1:1 with Maalox and Benadryl, swallow every 4 hours as needed omega-3 fatty acids-fish Take 1 capsule by 0 08/2504/24/2019 oil (FISH OIL) 300-1,000 mouth daily. mg capsule peg 400-propylene glycol 1 drop. 0 12/31/2013 03/14/2018 (SYSTANE) 0.4-0.3 % ophthalmic solution raNITIdine (ZANTAC) 300 Take 1 tablet by 0 201404/24/2019 mg tablet mouth at bedtime. Take one tablet every night at bedtime. Take a 3-day drug holiday every month. sucralfate (CARAFATE) 100 Take 10 mL by mouth 0 0 11/01/2016 02/09/2018 mg/mL suspension 3 (three) times a day. Take 2 teaspoons (10 ML) three times daily after meals. documented as of this encounter Progress Notes Alyx Villafana APRN, C.N.P. - 12/20/2017 11:59 PM CDT Mr. Franz was seen in the Division of Gastroenterology and hepatology on December 20, [address] Carranza. On this occasion upper endoscopy was performed. Findings included residual Vicente's C0-M1 which was resected in two pieces. Histopathology demonstrated Vicente's with high-grade dysplasia in one sample and well-differentiated intramucosal adenocarcinoma in the other. There is no lymphovascular invasion and the margins were negative. #1 Vicente's esophagus with high-grade dysplasia and T1b adenocarcinoma treated endoscopically Given the above findings, a return visit with endoscopy is recommended in eight weeks for PET/CT andendoscopic follow-up. #2 GERD He should continue on Nexium 40 mg twice daily prior to morning and evening meals, Zantac at bedtime, and Carafate after meals. documented in this encounter Plan of Treatment Not on filedocumented as of this encounter Procedures Procedure Name Priority Date/Time Associated Diagnosis Comme nts UPPER GI ENDOSCOPY Routine 12/20/2017 11:02 AM Vicente's Esoph ky Results for this CDT procedure are i n the results section. EGD Routine 12/20/2017 11:02 AM Vicente's Esophagus (ESOPHAGEALGASTRODU CDT ODENOSCOPY) SURGICAL PATHOLOGY Routine 12/20/2017 10:13 AM Re sults for this CDT procedure are i n the results section. documented in this encounter Results Upper GI Endoscopy (12/20/2017 11:02 AM CDT) Specimen (Source) Anatomical Collection Method Collection Time Re ceived Time Location / / Volume Laterality 12/20/2017 11:02 AM CDT Impressions [facility] - 12/20/2017 11:13 AM CDT Post-op Diagnoses: ? - Residual Vicente's esophagus C0 -M1 per Harris criteria. Subtle ? nodularity at 35 cm, removed by c ap EMR X 2, challenging due to ? underlying scarring. EMR edges an d remaining BE segment treated with ? APC. Surveillance biopsies taken. ? - 5 cm hiatal hernia. ? - A few gastric polyps. ? - Mucosal resection was performed . Resection and retrieval were complete. Narrative [facility] - 12/20/2017 11:13 AM CDT Reymundo 6 GI GI Patient Name: Nii Franz Date of : 1935 Age: 82 Gender: Male Procedure Date: 12/20/2017 Procedure: ? Upper GI endoscopy Providers: ? Darrell Carranza MD, Miguelito Kumar MD (Fellow) Referring Provider: ?Alyx Villafana Pre-op Diagnoses: ?Vicente's [...] id entified: the Z-line was found at 35 ? cm, the gastroesophageal junction was found at 36 cm and the site of ? hiatal narrowing was found at 41 cm from the incisors. ? The esophagus and gastroesophagea l junction were examined with white ? light and narrow band imaging (NB I) from a forward view and retroflexed ? position. There were esophageal m ucosal changes classified as Vicente's ? stage C0-M1 per Harris criteria. These changes involved the mucosa at ? the upper extent of the gastric f olds (36 cm from the incisors) ? extending to the Z-line (35 cm fr om the incisors). Nodularity was ? present at 35 cm. Mucosa was biop sied with a cold jumbo forceps for ? histology in a targeted manner at intervals of 2 cm in the lower third ? of the esophagus. One specimen bolivar dewayne was sent to pathology. Estimated ? blood loss: none. Preparations we re made for mucosal resection. 20 mL of ? a 1:20,000 solution of epinephrin e with methylene blue was injected with ? partial lift of the lesion from t he muscularis propria. Cap and snare ? mucosal resection with [place] net r etrieval was performed. Two pieces were ? resected in total. Resection and retrieval were complete. There was no ? bleeding during, and at the end, of the procedure. Coagulation for ? tissue destruction using argon pl asma at 1 liter/minute and 60 louis was ? successful. ? A 5 cm hiatal hernia was present. ? A few 5 mm sessile polyps were fo und in the gastric fundus and in the ? gastric body. ? The examined duodenum was normal. Procedural [...] rformed the entire procedure. Darrell Carranza MD 12/20/2017 11:13:33 AM This report has been signed electronical ly. Number of Addenda: 0 Alyx Villafana APRN CCareyNCareyPCarey GI PROCEDURE ORDERABLES Performing Organization Address City/State/ZIP Code Phon e Number [facility] Surgical Pathology (12/20/2017 10:13 AM CDT) Component Value Ref Test Analysis Performed At [facility] gist Range Method Time Signature Gross Description A: ?? Received in formalin labeled with the patie nt's name, 12/21/2017 [facility] medical record number, and esophagus, 35-36 cm-esophageal 3:58 PM LABORATORIES - mucosal resection is a pale lawrence, previously inked green [facility] polypoid like tissue, measuring 0.6 x 0.5 x 0.4 cm. ??The CAMPUS specimen is inked with blue at the probable resection margin, bisected and submitted entirely in cassette A1. Also received in the same container is a 0.6 x 0.2 x 0.1 cm dark brown soft tissue fragment. The specimen is submitted en toto in cassette A1. Grossed by DEE DEE. B: ?? Received in formalin labeled with the patient's name, medical record number, and esophagus, 35-36 cm-esophageal mucosal resection is a pale lawrence-dark brown, previously inked green polypoid like tissue, measuring 0.7 x 0.6 x 0.4 cm. ??The specimen is inked blue at the probable resection margin, bisected and submitted entirely in cassette B1. Grossed by DEE DEE. C: ?? Received in formalin labeled with the patient's name, medical record number, and esophagus, 35-36 cm-lower third esophagus are seven pale lawrence-pink irregular soft tissues, ranging from 0.2-0.4 cm in greatest dimension. Specimens are submitted en toto in cassette C1. Grossed by DEE DEE. Report Nader Macedo M.D. [phone] 12/21/2017 [facility] electronically I verify that I have examined all relevant slides/ma terials 3:58 PM LABORATORIES - signed by for the specimen(s) and rendered or confirmed the diagnosi s. CDT [facility] 12/21/2017 [facility] 3:58 PM LABORATORIES - CDT [facility] Interpretation FINAL DIAGNOSIS 12/21/2017 [facility] A. Esophagus, 35-36cm, endoscopic mucosal resection: 3:58 PM LABORATORIES - Specialized Vicente's mucosa, high grade dysplasia, CDT [facility] extending to the peripheral margin. CAMPUS B. Esophagus, 35-36cm, endoscopic mucosal resection: Intramucosal well differentiated adenocarcinoma involving muscularis mucosa, arising in specialized Vicente's mucosa with high grade dysplasia. No angiolymphatic invasion. ??The peripheral and deep margins are negative for dysplasia or carcinoma. C. Esophagus, 35-36cm, lower third, endoscopic biopsy: Specialized Vicente's mucosa. No dysplasia. Specimen (Source) Anatomical Collection Method Collection Time Re ceived Time Location / / Volume Laterality Other, Specify in 12/20/2017 10:13 Comments AM CDT (Esophagus) Comment: esophageal mucosal resection Other, Specify in Comments (Esophagus) 10:29 AM CDT Comment: esophageal mucosal resection Biopsy (Esophagus) 12/20/2017 10:33 AM CD T Narrative This result has an attachment that is no t available. Darrell Carranza M.D. LAB SURG PATH ORDERABLES Performing Organization Address City/State/ZIP Code Phon e Number [facility] LABORATORIES - [address] [place], [place] [address] [facility] documented in this encounter Visit Diagnoses Diagnosis Vicente's Esophagus documented in this encounter Administered Medications Inactive Administered Medications - up to 3 most recent administrations Medication Order MAR Action Action Date Dose Rate Site EPINEPHrine injection Given 12/20/2017 10:16 AM CDT 0.5 mg Other (ADRENALIN) Code/trauma/sedation medication, Starting on Mon12/20/17 at 1016 methylene blue 1 % (10 mg/mL) injection Given 12/20/2017 10:18 AM 5 drops Other Code/trauma/sedation medication, Starting CDT on Mon12/20/17 at 1018 documented in this encounter
--- OUTSIDE RECORDS SUMMARY | 2022-01-16 15:59 | XMS_ITS | Encounter Summary ---
:1935 Author Organization [facility] Address [address] [place] [address] Care Team Providers Name Role Phone Unavailable Primary Care Provider Unavailable Encounter Details Date Type Department Care Team Description 03/15/2018 Orders Only Division of Alyx Villafana [place] (Primary Dx); Gastroenterology in A, PHYSICIAN ASSISTANT, C.N .P. Cancer Esophagus Primary Personal Histor y [place], [place] [address] [facility] [address] [place] [phone] Social History Tobacco Use Types Packs/Day Years [...] Visit Diagnoses Diagnosis Vicente's Esophagus - Primary Cancer Esophagus Primary Personal Histor y documented in this encounter
--- OUTSIDE RECORDS SUMMARY | 2022-01-16 15:59 | XMS_ITS | Encounter Summary ---
:1935 Author Organization [facility] Address [address] [place] [address] Care Team Providers Name Role Phone Unavailable Primary Care Provider Unavailable Reason for Visit Reason Onset Date Comments outside urines 04/05/2018 Encounter Details Date Type Department Care Team Description 04/05/2018 Clinical Communication Department of Dimitris Tyler [facility] urines Urology in [place], [place] [address] [place] [address] [address] [place] [phone] Social History Tobacco Use Types Packs/Day Years [...] [facility] [place] [facility] (including now)? Sex Assigned at Date Recorded Male 08/14/2017 2:01 PM CDT documented as of this encounter Miscellaneous Notes Telephone Encounter - Kylie David R.N. - 04/05/2018 10:55 AM TERMINAL GAUGER SUPERVISOR INFORMATION DISCUSSED Per Jodee Garza P.A.-C. ([phone]) recommendations: we have received patient's outside urines. The urine culture had no growth and his urinalysis is clear. He is cleared for his TURBT with Dr. Virgil Francisco ([id number]) on 04/12/18. Patient wanted further details about the TURBT procedure entails. Provided patient with information from [facility] website. PLAN Disposition/Recommendation: self-care appropriate at this time . Education: patient/caller able to teach back Caller agreeable to plan of care: yes The following references were used: website https://www.[facility].org/diseases-conditions/bladder-ca ncer/diagnosis-treatment/[facility]-80806647 and provider Jodee DANIELS INAL GAUGER SUPERVISOR Telephone Encounter - Jodee Garza P.A.-C., M.S. - 04/05/2018 10:40 AM TERMINAL GAUGER SUPERVISOR Please let him know that we received his outside urines. His urine culture had no growth. Urinalysislooks clear. He has good to go for his [facility] procedure scheduled for later this month. INAL GAUGER SUPERVISOR Telephone Encounter - Mary Ann Mcgee - 04/05/2018 9:05 AM CST Received outside urines on Mr. Franz for his upcoming procedure on 04/12. These have been scanned into his chart and you can view them in Document Viewer tab. INAL GAUGER SUPERVISOR documented in this encounter Plan of Treatment Not on filedocumented as of this encounter Visit Diagnoses Not on filedocumented in this encounter
--- OUTSIDE RECORDS SUMMARY | 2022-01-16 15:59 | XMS_ITS | Encounter Summary ---
:[address] [facility] Address [address] [place] [address] Care Team Providers Name Role Phone Unavailable Primary Care Provider Unavailable Encounter Details Date Type Department Care Team Description 03/16/2018 Ancillary Procedure Department of Urology Social History [...] or slept in a halfway (including now)? Sex Assigned at Date Recorded Male 08/14/2017 2:01 PM CDT documented as of this encounter Plan of Treatment Not on filedocumented as of this encounter Procedures Procedure Name Priority Date/Time Associated Diagnosis Comme nts UROLOGY IMAGE EXAM Routine 03/16/2018 7:40 AM Res ults for this BAIL BOND AGENT procedure are i n the results section. documented in this encounter Results UROLOGY IMAGE EXAM (03/16/2018 7:40 AM BAIL BOND AGENT) Specimen (Source) Anatomical Collection Method Collection Time Re ceived Time Location / / Volume Laterality 03/16/2018 7:40 AM BAIL BOND AGENT Narrative [facility] - 03/16/2018 10:35 AM BAIL BOND AGENT This order has been created and auto-finalized [...]
--- OUTSIDE RECORDS SUMMARY | 2022-01-16 15:59 | XMS_ITS | Encounter Summary ---
:1935 Author Organization [facility] Address [address] [place] [address] Care Team Providers Name Role Phone Unavailable Primary Care Provider Unavailable Encounter Details Date Type Department Care Team Description 04/12/2018 Surgery Outpatient Procedure Virgil Francisco TOSCOPY, TRANSURETHRAL Center in Herb Ramirez M.D. RESECTION LESION [place] [address] [facility] BLADDER// PARALYSIS, [address] [place], [place] [phone] Social History Tobacco Use Types Packs/Day Years [...] or relatives? How often do you attend christianity or More than 4 times per year 09/25/2021 sikhism services? Do you belong to any clubs or Yes 09/25/2021 organizations such as christianity groups, unions, fraternal or athletic groups, or [...] Sign Reading Time Taken Comments Blood Pressure 143/73 04/12/2018 7:30 AM STONEMASON APPRENTICE Pulse 74 04/12/2018 7:40 AM STONEMASON APPRENTICE Temperature 36.6 ??C (97.9 ??F) 04/12/2018 7:12 AM STONEMASON APPRENTICE Respiratory Rate 16 04/12/2018 7:40 AM STONEMASON APPRENTICE Oxygen Saturation 94% 04/12/2018 7:40 AM STONEMASON APPRENTICE Inhaled Oxygen Concentration - - Weight - - Height - - Body Mass Index - - documented in this encounter Discharge Instructions AttachmentsThe following attachments cannot be sent through Care Everywhere. Cystoscopy/Bladder Biopsy/Transurethral Resection Bladder Tumor ([place]) Indwelling Catheter Care With Drainage Bag Instructions ([place])documented in this encounter Medications at Time of [...] (ZOCOR) 20 Take 1 tablet by 0 01/14/2 014 mg tablet mouth daily. tamsulosin (FLOMAX) 0.4 Take 0.4 mg by mouth 0 mg 24 hr capsule daily. venlafaxine XR Take 150 mg by mouth 0 10/31/2017 (EFFEXOR-XR) 150 mg 24 daily with breakfast. hr capsule vit Take 1 tablet by 0 03/10/2015 C/E/Zn/coppr/lutein/zeax mouth 2 (two) times a an (PRESERVISION AREDS 2 day. ORAL) sulfamethoxazole-trimeth Take 1 tablet by 6 tablet 0 04/1204/15/2018 oprim (BACTRIM DS) mouth 2 (two) times a 800-160 mg per tablet day for 6 doses. Beginning day prior to catheter removal acetaminophen (TYLENOL) Take 1 tablet by 0 [...] catheter removal documented as of this encounter OR Notes Op Note - Robin Maddox M.D. - 04/12/2018 8:32 AM CST FULL OP NOTE Procedure(s) (LRB): CYSTOSCOPY, TRANSURETHRAL RESECTION LESION BLADDER// PARALYSIS, PYRIDIUM. (N/A) CATHETERIZATION BLADDER (N/A) Surgeon(s) and Role: * Virgil Francisco M.D. - Primary * Robin Maddox M.D. 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 Post-Operative Diagnosis: Same as pre-operative diagnosis Findings: 1. Large 4cm papillary mass on right lateral bladder wall 2. Second, smaller 1.5 cm papillary mass on posterior right bladder wall 3. TURBT of total of 7cm right lateral bladder wall 4. Negative bimanual exam Complications: None Description of Procedure: Patient was brought back to OR 722 in the [facility] and placed under generalanesthesia. He was prepped and draped in dorsal lithotomy position in sterile fashion. A preprocedure pause was performed to verify the patient's identity, procedure, and preprocedure antibiotics. We began with cystourethroscopy, anterior urethra within normal limits, prostatic urethra mildly obstructing. Upon entering the bladder, left and right ureteral orifices were identified in orthotopic position. There was a large approximately 4 cm papillary mass on the right bladder wall lateral to the ureteral orifice. In addition there is a smaller 1.5 cm papillary mass in the posterior right bladder wall. Between these 2 areas and covering a total of about 7 cm was an area of papillary carpeting. We then proceeded to sequentially dilate to 30 Lebanese and placed our continuous flow resectoscope. We thentook multiple swipes of the right bladder wall encompassing the entire area mentioned above. This did not involve the ureteral orifice. Following this we used cautery to achieve good hemostasis. Patient's bladder was emptied, a bimanual exam was performed is negative for clinical T3 or T4 disease and an 18 Lebanese Dorsey catheter was placed. This was irrigated to pink clear. The patient was woken from anesthesia transfer the postop care unit for further monitoring. Specimens ID Type Source Tests Collected by Time A : Right Bladder Wall Tumor Tissue Bladder SURGICAL PATHOLOGY Robin Maddox M.D. 04/12/2018 0836 Drains Indwelling Urinary Catheter Double-lumen 18 Fr. (Active) * No drains in log * Estimated Blood Loss 10 mL Implants * No implants in log * Robin Maddox M.D. EMASON APPRENTICE documented in this encounter Plan of Treatment Not on filedocumented as of this encounter Procedures Procedure Name Priority Date/Time Associated Comments Diagnosis SURGICAL PATHOLOGY Routine 04/12/2018 8:36 Tumor Bladder Resul ts for this AM STONEMASON APPRENTICE Uncertain Behavior procedure are in the results section. CATHETERIZATION BLADDER 04/12/2018 7:37 Tumor Bladder AM STONEMASON APPRENTICE Uncertain Behavior Special Needs Listing: [facility] service. CYSTOSCOPY WITH TRANSURETHRAL 04/12/2018 7:37 AM STONEMASON APPRENTICE T umor Bladder Uncertain RESECTION LESION BLADDER Behavior Special Needs Listing: [place] service. documented in this encounter Results Surgical Pathology (04/12/2018 8:36 AM STONEMASON APPRENTICE) Component Value Ref Test Analysis Performed At [facility] gist Range Method Time Signature Gross Description Received in formalin labeled with the patient's n martin, 04/13/2018 [facility] medical record number, and bladder, right bladder wall 11:02 AM LABORATORIES - tumor are multiple lawrence-pink, rubbery, cauterized tissue [facility] fragments 2.7 x 2.0 x 0.5 cm in aggregate. Specimens are CAMPUS submitted en toto in cassettes A1 and A2. ??Grossed by GAURANG. Participated in Gaudencio Hernandez 04/13/2018 [facility] the [place], 11:02 AM LABORATORIES - Interpretation M.D.-Pathology [facility] Report Paulie Hernandez M.D., Ph.D. 9 [facility] electronically I verify that I have examined all relevant slides/ma terials 11:02 AM LABORATORIES - signed by for the specimen(s) and rendered or confirmed the diagnosi s. [facility] 04/13/2018 [facility] 11:02 AM LABORATORIES - [facility] Interpretation FINAL DIAGNOSIS 04/13/2018 [facility]. 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 ??Muscularis propria is present and not involved. CAMPUS Specimen (Source) Anatomical Collection Method Collection Time Re ceived Time Location / / Volume Laterality Tissue (Bladder) 04/12/2018 8:36 AM STONEMASON APPRENTICE Narrative This result has an attachment that is no t available. Virgil Francisco M.D. LAB SURG PATH ORDERABLES Performing Organization Address City/State/ZIP Code Phon e Number [facility] - [address] [place], [place] [address] [facility] documented in this encounter Visit Diagnoses Diagnosis Tumor Bladder Uncertain Behavior Tumor Bladder Uncertain Behavior documented in this encounter Admitting Diagnoses Diagnosis Tumor Bladder Uncertain Behavior documented in this encounter Administered Medications Inactive Administered Medications - up to 3 most recent administrations Medication Order MAR Action Action Date Dose Rate Site acetaminophen tablet 1,000 mg Given 04/12/2018 7:49 AM STONEMASON APPRENTICE 1,000 mg (TYLENOL) 1,000 mg, oral, Once, On Loly 04/12/18 at 0800, For 1 dose, Pre-Op belladonna alkaloids-opium 16.2-60 mg Given 04/12/2018 9:01 AM STONEMASON APPRENTICE 1 suppository suppository (B&O SUPPRETTS) As needed, Starting on Loly 04/12/18 at 0901, Intra-Op lactated ringers New Bag 04/12/2018 8:42 AM STONEMASON APPRENTICE 20 mL/hr, intravenous, Continuous, Starting on Loly 04/12/18 at 0800 New Bag 04/12/2018 7:48 AM STONEMASON APPRENTICE 20 mL/hr 20 mL/hr lidocaine HCl 2 % topical jelly 1 Given 04/12/2018 10:14 AM STONEMASON APPRENTICE 1 application application (UROJET) 1 application, topical, Once, On Loly 04/12/18 at 1015, For 1 dose oxybutynin tablet 5 mg (DITROPAN) Given 04/12/2018 9:25 AM STONEMASON APPRENTICE 5 mg 5 mg, oral, Once as needed, If patient is not required to void prior to dismissal, Starting on Loyl 04/12/18 at 0923, For 1 dose, PACU & Post-Op phenazopyridine tablet 200 mg (PYRIDIUM) Given 04/12/2018 7:00 AM STONEMASON APPRENTICE 200 mg 200 mg, oral, Once, On Loly 04/12/18 at 0700, For 1 dose, Pre-Op sodium chloride 0.9 % injection 10 mL 10 mL, intravenous, As needed, line care , Starting on Loly 04/12/18 at 0655, Pre-Op, Peripheral Intravenous Catheter and Rapid Infusion Cat heter, prior to blood sampling, post blood transfusion or post blood samplin g sodium chloride 0.9 % injection 3 mL 3 mL, intravenous, As needed, line care, Starting on Loly 04/12/18 at 0655, Pre-Op, Prior to and following infusion and betw een multiple consecutive infusions: sodium chloride 0.9 % injection sodium chloride 0.9 % injection 3 mL 3 mL, intravenous, Every 12 hours scheduled, First dos e on Loly 04/12/18 at 0900, Pre-Op, Peripheral Intravenous Catheter and Rapid Infu sunita Catheter, when no infusion to maintain patency documented in this encounter Active and Recently Administered Medications Times are shown in STONEMASON APPRENTICE. Scheduled Medication Order 04/10/2018 04/11/2018 04/12/2018 acetaminophen tablet 1,000 mg (TYLENOL) (COMPLETED) 0749 (Given - Provider: Soraida Deluna R.N.) 1,000 mg, oral, Once, Loly 04/12/18 at 0800, For 1 dose, Pre-Op ceFAZolin injection 2 g (ANCEF) (COMPLETED) 0820 (Given - Provider: Zandra Velasco APRN, [facility]) 2 g, intravenous, Once, Loly 04/12/18 at 0 700, For 1 dose, Intra-Op, Adminster IV push over 3 minutes. Add 5 mL NS to 1 gram vial for a final concentration of 200 mg/mL., Drug Monitoring Program: Pharmaci st to adjust medication dosing based on indication and drug clearance factors., Indications: Prophylaxis, Surgical lidocaine HCl 2 % topical jelly 1 application (UROJET) (COMPLETE D) 1014 (Given - Provider: Soraida Deluna R.N.) 1 application, topical, Once, Loly 04/12/18 at 1015, For 1 dose phenazopyridine tablet 200 mg (PYRIDIUM) (COMPLETED) 0700 (Given - Provider: Soraida Deluna R.N.) 200 mg, oral, Once, Loly 04/12/18 at 0700, For 1 dose, Pre-Op sodium chloride 0.9 % injection 3 mL 0900 (Due) 3 mL, intravenous, Every 12 hours schedu led, First dose on Loly 04/12/18 at 0900, Pre-Op, Peripheral Intravenous Catheter and Rapid Infusion Catheter, when no infusion to maintain patency Continuous Medication Order 04/10/2018 04/11/2018 04/12/2018 lactated ringers 0748 (New Bag - Provider: Soraida Deluna R.N.)0842 (New Bag - Provider: Zandra Velasco APRN, DANIEL)0904 (Anesthesia Volume Adjustment - Provider: Zandra Velasco APRN, DANIEL)1226 (Stopped - Provider: Soraida Deluna R.N.) 20 mL/hr, intravenous, at 20 mL/hr, Continuous, Starting Loly 03/27 10/12 at 0800 PRN Medication Order 04/10/2018 04/11/2018 04/12/2018 belladonna alkaloids-opium 16.2-60 mg suppository (B&O SUPPRETTS ) (CANCELED) 09 (Given - Provider: Robin Maddox M.D.) As needed, Starting Loly 04/12/18 at 0901, Intra-Op droperidol injection 0.625 mg (INAPSINE) 0.625 mg, intravenous, Every 6 hours PRN , nausea, vomiting, Starting Loly 04/12/18 at 1013, For 48 hours, Total of 3 doses in 24 hour period. RASS must be -2 or higher to administer. Reassess for nausea o r vomiting after at least 10 minutes. If nausea or vomiting persists administer next ordered antiemetic medications (order for antiemetic medication administration ondansetron then droperidol then promethazine). naloxone injection 0.2 mg (NARCAN) 0.2 mg, intravenous, As needed, respirat ory depression, Starting Loly 04/12/18 at 1013, For respiratory rate less than 8 breaths per minute or RASS score of -3, - 4, -5. Apply oxygen to keep oxygen saturations greater than 90% and notify service. ondansetron (PF) injection 4 mg (ZOFRAN) 4 mg, intravenous, Every 6 hours PRN, na usea, vomiting, Starting Loly 04/12/18 at 0923, For 48 hours, PACU & Post-Op, Reassess for nausea or vomiting after at least 10 minutes. If nausea or vomiting p ersists administer next ordered antiemet ic medications (order for antiemetic medication administration ondansetron then droperidol then promethazine). oxybutynin tablet 5 mg (DITROPAN) (COMPLETED) 924 (Given - Provider: Soraida Deluna R.N.) 5 mg, oral, Once as needed, If patient i s not required to void prior to dismissal, Starting Loly 04/12/18 at 0923, For 1 dose, PACU & Post-Op sodium chloride 0.9 % injection 10 mL 10 mL, intravenous, As needed, line care , Starting Loly 04/12/18 at 0655, Pre-Op, Peripheral Intravenous Catheter and Rapid Infusion Catheter, prior to blood sampling, post blood transfusion or post blood sampling sodium chloride 0.9 % injection 3 mL 3 mL, intravenous, As needed, line care, Starting Loly 04/12/18 at 0655, Pre-Op, Prior to and following infusion and between multiple consecutive infusions: sodium chloride 0.9 % injection documented in this encounter
--- OUTSIDE RECORDS SUMMARY | 2022-01-16 15:59 | XMS_ITS | Encounter Summary ---
:1935 Author Organization [facility] Address [address] [place] [address] Care Team Providers Name Role Phone Unavailable Primary Care Provider Unavailable Reason for Referral Outpatient (Routine) - Closed Specialty Diagnoses / Referred By Referred To Cont act Procedures Contact Gastroenterology and [facility]lyx Villaf[facility] Hepatology MARGOT Elizabeth, C.N.PCarey [address] [place] [address] Referral ID Status Reason Start Date Expiration Date Visits Requ ested Visits Authorized [id number] Closed 08/21/2017 08/21/2018 1 1 Scheduling Instructions Day of EGD Encounter Details Date Type Department Care Team Description 08/21/2017 Orders Only Division of [facility] [facility] in MARGOT Elizabeth, C.N .P. 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
--- OUTSIDE RECORDS SUMMARY | 2022-01-16 15:59 | XMS_ITS | Encounter Summary ---
:1935 Author Organization [facility] Address [address] [place] [address] Care Team Providers Name Role Phone Unavailable Primary Care Provider Unavailable Encounter Details Date Type Department Care Team Description 03/16/2018 Documentation Preoperative Evaluation Charline South, [place] in [place], MARGOT, C.N.P ., M.S.N. [place] [address] [place] [address] [address] [place] [phone] (Wo rk) Social History Tobacco Use Types [...] documented as of this encounter Progress Notes Charline South APRN C.N.P., M.S.N. - 03/16/2018 3:12 PM CST I reviewed the EMR (Electronic Medical Record) to ascertain if a PEEWEE (Pre-Op Exam) appointment is needed. The patient has a note dated March 14, 2018 by Derrick Haas APRN, PLAYGROUND EQUIPMENT ERECTOR, DNAP that contains all the pertinent information. Has undergone anesthesia twice in the past 3 months and has had no complications. Based on current health status and information available per EMR, the patient can proceed to the OR (Operating Room) for the planned procedure. If the patient is on anticoagulation or antiplatelet agents, perioperative management is arranged bythe surgical service as indicated. The patient should skip all oral anti-diabetic agents, SANDRO (zsfdrlqxshh-qtwdlvqwel-tjoono) inhibitors, diuretics, ARB's (angiotensin receptor blockers) and tobacco products on the day of the procedure. SERVICER documented in this encounter Plan of Treatment Not on filedocumented as of this encounter Visit Diagnoses Not on filedocumented in this encounter
--- OUTSIDE RECORDS SUMMARY | 2022-01-16 15:59 | XMS_ITS | Encounter Summary ---
:1935 Author Organization [facility] Address [address] [place] [address] Care Team Providers Name Role Phone Unavailable Primary Care Provider Unavailable Encounter Details Date Type Department Care Team Description 12/20/2017 Ancillary Procedure Department of Gastroenterology Social History [...] or relatives? How often do you attend pentecostal or More than 4 times per year 09/25/2021 judaism services? Do you belong to any clubs or Yes 09/25/2021 organizations such as pentecostal groups, unions, fraternal or athletic groups, or [...] Date/Time Associated Comments Diagnosis GASTROENTEROLOGY IMAGE Routine 12/20/2017 11:05 R esults for this EXAM AM CDT procedure are i n the results section. documented in this encounter Results GASTROENTEROLOGY IMAGE EXAM (12/20/2017 11:05 AM CDT) Specimen (Source) Anatomical Collection Method Collection Time Re ceived Time Location / / Volume Laterality 12/20/2017 11:02 AM CDT Narrative [facility] - 12/20/2017 11:16 AM CDT This order has been created and [...]
--- OUTSIDE RECORDS SUMMARY | 2022-01-16 15:59 | XMS_ITS | Encounter Summary ---
:1935 Author Organization [facility] Address [address] [place] [address] Care Team Providers Name Role Phone Unavailable Primary Care Provider Unavailable Reason for Referral Outpatient (Routine) - Closed Specialty Diagnoses / Referred By Referred To Cont act Procedures Contact Gastroenterology and Alyx Villafana [facility] Hepatology MARGOT Elizabeth, C.N.P. [address] [place] [phone] Referral ID Status Reason Start Date Expiration Date Visits Requ ested Visits Authorized [id number] Closed 01/01/2018 01/01/2019 1 1 Scheduling Instructions With MARY, day of EGD Encounter Details Date Type Department Care Team Description 12/29/2017 Clinical Communication Division of [facility] in [place], [place] MARGOT, C.N.P. [address] [place] [address] [place] [phone] [place], [place] [phone] Social History Tobacco Use Types Packs/Day Years [...] or relatives? How often do you attend sikh or More than 4 times per year 09/25/2021 congregational services? Do you belong to any clubs or Yes 09/25/2021 organizations such as sikh groups, unions, fraternal or athletic groups, or [...] of this encounter Plan of Treatment Scheduled Orders Name Type Priority Associated Diagnoses Order S chedule EGD GI Routine Malignant Neoplasm Of Esopha preston Expected: 03/02/2018 (HCC) (Approximate), Expires: 07/02/2018 Scheduled Referrals Name Type Priority Associated Order Schedule Diagnoses Gastroenterology office Outpatient Routine Expe cted: visit (clinic) Referral 03/02/2018 (Approximate), Expires: 01/01/2021 documented as of this encounter Visit Diagnoses Diagnosis 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
--- OUTSIDE RECORDS SUMMARY | 2022-01-16 15:59 | XMS_ITS | Encounter Summary ---
:1935 Author Organization [facility] Address [address] [place] [address] Care Team Providers Name Role Phone Unavailable Primary Care Provider Unavailable Encounter Details Date Type Department Care Team Description 03/13/2018 Hospital Encounter Department of Laboratory TylerDanni, Hematuria Medicine and Pathology, [place] [address] [place], [place] [address] [place] [address] [place] [address] [phone] Social History Tobacco Use Types Packs/Day Years [...] TEASPOONSFUL) THREE TIMES A DAY AFTER MEALS diphenhydrAMINE 12.5 mg/5 Take 15 mL by mouth 480 mL 0 0 12/20/2017 03/14/2018 mL-lidocaine 2%-antacid 3 (three) times a oral rinse day as needed (pain). fluticasone (VERAMYST) Administer 1 spray 0 09/2905/27/2019 27.5 mcg/actuation nasal into affected spray nostril(s) daily as needed for rhinitis. levothyroxine (SYNTHROID, Take 1 tablet by 0 /09/201305/29/2019 LEVOTHROID) 100 mcg mouth every morning. tablet 137 mcg lidocaine (lidocaine) 2 % Apply 15 mL to the 100 mL 1 03/14/2018 mucosal solution mouth or throat every 4 (four) hours as needed (pain). Mix 1:1:1 with Maalox and Benadryl, swallow every 4 hours as needed omega-3 fatty acids-fish Take 1 capsule by 0 06/04/24/2019 oil (FISH OIL) 300-1,000 mouth daily. mg [...] Procedure Name Priority Date/Time Associated Comments Diagnosis MICROSCOPIC MANUAL Routine 03/13/2018 3:54 PM Res ults for this MANAGER MANAGED CARE procedure are i n the results section. URINALYSIS WITH Routine 03/13/2018 3:54 PM Hematuria Result s for this MICROSCOPIC MANAGER MANAGED CARE procedure are i n the results section. BACTERIAL CULTURE, Routine 03/13/2018 3:53 PM Hematuria Res ults for this AEROBIC + SUSC, URINE MANAGER MANAGED CARE proced ure are in the results section. CYTOLOGY NON-GRAPHIC EDITOR Routine 03/13/2018 2:21 PM Hematuria Resul ts for this MANAGER MANAGED CARE procedure are i n the results section. documented in this encounter Results (ABNORMAL) Microscopic Manual (03/13/2018 3:54 PM MANAGER MANAGED CARE) [facility] Method Time Signature Microscopy Abnormal 03/13/2018 [facility] 5:35 PM MANAGER MANAGED CARE LABORATORIES - [facility] RBC 3-10 (A) <3 /hpf 03/13/2018 [facility] 5:35 PM [facility] MA[facility] LAB[facility]ATORIES [facility] Dysmorphic RBC <25 <25 % 03/13/2018 [facility] 5:35 PM [facility] MA[facility] LAB[facility]ATORIES [facility] WBC 1-3 /hpf 03/13/2018 [facility] 5:35 PM [facility] MA[facility] LAB[facility]ATORIES [facility] Comment: ----REFERENCE VALUE---- 1-3 ??(Males) 1-10 (Females) Casts, Hyaline Occas /lpf 03/13/2018 5:35 PM [facility]ATORIES [facility] Crystals Amorphous crystals 03/13/2018 5:35 PM [facility] present MANAGER MANAGED CARE LABORATORIES - [facility] S Specimen Anatomical Collection Method Collection Time Receive d Time (Source) Location / / Volume Laterality Urine 03/13/2018 3:54 PM 8 5:32 MANAGER MANAGED CARE PM MANAGER MANAGED CARE Dimitris Tyler M.D. LAB URINE ORDERABLES Performing Organization Address City/State/ZIP Code Phon e Number [facility]ATORIES - [address] [place] [phone] [facility] (ABNORMAL) Urinalysis with Microscopic (03/13/2018 3:54 PM MANAGER MANAGED CARE) [facility] Method Time Signature Source Midstream 03/13/2018 [facility] 3:54 PM [facility] MA[facility]IES - [facility] Appearance Normal Normal 03/13/2018 [facility] 4:19 PM [facility] LAB[facility]IES [facility] Osmolality, U 770 150 - 1150 03/13/2018 [facility] mOsm/kg 4:56 PM [facility] LAB[facility]ATORIES [facility] pH, U 5.7 4.5 - 8.0 03/13/2018 [facility] 4:56 PM [facility] LAB[facility]ATORIES [facility] Comment: ----ADDITIONAL INFORMATION---- This test was developed and its performa nce characteristics determined by [facility] in a manner co nsistent with CLIA requirements. This test has not bee n cleared or approved by the U.S. Food and Drug Admin istration. Glucose 22 (H) 0 - 15 mg/dL 03/13/2018 4:19 PM [facility] Protein, U 40 (H) <26 mg/dL 03/13/2018 4:19 PM [facility] Comment: ----ADDITIONAL INFORMATION---- On 09/20/2016 the total protein assay me thod changed resulting in approximately a 15% increase in prote in values. Protein/Osmolality 0.52 (H) <0.42 Ratio 03/13/2018 4:56 PM [facility] Comment: ----ADDITIONAL INFORMATION---- On 09/20/2016 the total protein assay me thod changed resulting in approximately a 15% increase in prote in values. Predicted 24 Hr 504 mg/24 h 03/13/2018 4:56 PM [facility] Protein [facility] Predicted Range 160-1589 mg/24 h 03/13/2018 4:56 PM [facility] Hemoglobin, QL Small (A) Negative 03/13/2018 5:35 PM [facility] Comment Micro done on 03/13/2018 5:32 PM [facility] <5 mL [facility] Specimen Anatomical Collection Method Collection Time Receive d Time (Source) Location / / Volume Laterality Urine (Urine, 03/13/2018 3:54 PM 03/13/20 5:32 Voided) MANAGER MANAGED CARE PM MANAGER MANAGED CARE Dimitris Tyler M.D. LAB URINE ORDERABLES Performing Organization Address City/State/ZIP Code Phon e Number [facility] - [address] [place], [place] [address] [facility] Bacterial Culture, Aerobic + Susc, Urine (03/13/2018 3:53 PM MANAGER MANAGED CARE) [facility] gist Method Time Signature Urine Culture No growth 03/15/2018 [facility] after 1 7:15 AM MANAGER MANAGED CARE LABORATORIES - day [facility] . Specimen Anatomical Collection Method Collection Time Receive d Time (Source) Location / / Volume Laterality Urine (Urine, 03/13/2018 3:53 PM 03/13/20 6:09 Midstream) MANAGER MANAGED CARE PM [facility] MA[facility] Comment: Specimen Source Site: Urine Dimitris Tyler M.D. LAB MICROBIOLOGY - GENERAL O RDERABLES Performing Organization Address City/[facility] Phon e Number [facility] - [address] Cytology Non-GRAPHIC EDITOR (03/13/2018 2:21 PM MANAGER MANAGED CARE) Component Value Ref Test Analysis Performed At [facility] gist Range Method Time Signature Gross Description Received 60 03/14/2018 [facility] IC cc of orange 3:17 PM MANAGER MANAGED CARE LABORATORIES - fluid. [facility] Source A. Urine, 03/14/2018 [facility] voided 3:17 PM [facility]NAGER MANAGED CARE LABORATORIES - [facility] Report Warren Lenz M.D. [phone] 03/14/2018 [facility] electronically I verify that I have examined all relevant slides/ma terials 3:17 PM MANAGER MANAGED CARE LABORATORIES - signed by for the specimen(s) and rendered or confirmed the diagnosi s. [facility] 03/14/2018 [facility] 3:17 PM MANAGER MANAGED CARE LABORATORIES - [facility] Interpretation A. Urine, voided (ThinPrep): Negative for High-Grade 03/14/2018 [facility] Urothelial Carcinoma. 3:17 PM MANAGER MANAGED CARE LABORA TORIES - [facility] Specimen Anatomical Collection Method Collection Time Receive d Time (Source) Location / / Volume Laterality Varies 03/13/2018 2:21 PM 8 4:08 MANAGER MANAGED CARE PM MANAGER MANAGED CARE Narrative This result has an attachment that is no t available. Dimitris Tyler M.D. LAB SURG PATH ORDERABLES Performing Organization Address [facility] Phon e Number [facility] - [address] documented in this encounter Visit Diagnoses Diagnosis Hematuria documented in this encounter
--- OUTSIDE RECORDS SUMMARY | 2022-01-16 15:59 | XMS_ITS | Encounter Summary ---
:1935 Author Organization [facility] Address [address] [place] [address] Care Team Providers Name Role Phone Unavailable Primary Care Provider Unavailable Encounter Details Date Type Department Care Team Description 08/16/2017 Anesthesia Event Division of [facility] G[facility] in J, MARGOT, CRN A [place], [place] [address] [facility] [address] [place] [phone] Anesthesia Record Procedure Summary Procedure Name Responsible Anesthesia Start Anesthesia Stop Time Anesthesiologist Time EGD Karl Carlson APRN, 08/16/17 1017 08/16 1103 (ESOPHAGEALGASTRODU SUPERVISOR WINTER ODENOSCOPY) Events Date Time Event Comment 08/16/2017 1015 In Room 1017 An Start Machine/Equipmen t Checked Infection Precautions Foll owed Procedure/Site Verified NPO Sta tus Verified Supine Standard ASA Mon itors Applied 1027 Turnover to Proceduralist 1028 Proc Start 1049 Proc Fin 1051 Turnover to ANE Staff 1052 Out of Room 1057 an stop data 1103 An End I completed my h andoff to the receiving staff during [facility] ch we 1. Identified the patient 2. Ident ified the responsible provider 3. Revi ewed the pertinent medical history 4. Discu ssed the surgical course 5. Reviewed intra-o p anesthesia management and issues during an esthesia 6. Set expectations for post-procedure period 7. Allowed opportun ity for questions and acknowledgement of understanding. Name Total fentanyl injection 50 mcg/mL 25 mcg propofol 10 mg/mL infusion 371.7 mg propofol 10 mg/mL injection 30 mg lidocaine 2% (mg) injection 40 mg glycopyrrolate 0.2 mg/mL injection 0.2 mg acetaminophen 10 mg/mL injection 1,000 mg Lactated Ringers Free Drip 250 mL Agents No agents on file. Blood No blood administrations on file. Lines, Drains, and Airways Type Details Placement Removal Peripheral IV Placement Date: 08/16/17; 08/16/17952 by 08/16 1220 by Placement Time: 952; Orlando Tanner R.N. Linda Johnson, RCareyN. Catheter Size: 20 G; Orientation: Right; Location: Hand; Site Prep: Alcohol; Technique: Anatomical landmarks; Insertion Attempts: 1; Removal Date: 08/16/17; Removal Time: 1219 documented in this encounter Social History Tobacco [...] or slept in a residential (including now)? 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 Scheduled Providers: Karl Carlson APRN, CRNA Responsible Provider: Karl Carlson APRN, CRNA Anesthesia Type: MAC ASA Status: 3 Anesthesia Type: MAC Last vitals BP (!) 169/71 (08/16/17 1000) Temp 36.8 ??C (08/16/17 0951) Pulse 64 (08/16/17 0951) Resp 14 (08/16/17 0951) SpO2 99 % (08/16/17 0951) Anesthesia Post Evaluation 08/16/2017 11:04 AM Patient Disposition: dismissal Cardiovascular status: hemodynamics (HR & BP) acceptable Respiratory status: patent airway with spontaneous effort Temperature: normothermic Oxygen requirements: room air Level of consciousness: awake Pain score: pain adequately controlled and/or at baseline Post Op nausea/vomiting: none Hydration status: euvolemic Anesthesia Postprocedure Evaluation - Karl Carlson APRN, CRNA - 08/16/2017 11:03 AM CDT Patient: Nii rFanz Procedure Summary Date: 08/16/17 Room / Location: Division of Gastroenterology in [place], [place] Anesthesia Start: 1016 Anesthesia Stop: 110 Procedure: EGD (ESOPHAGEALGASTRODUODENOSCOPY) Diagnosis: Other Specified Diseases Of Esophagus Gastroesophageal Reflux Disease Without Esophagitis 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 Scheduled Providers: Karl Carlson APRN, CRNA Responsible Provider: Karl Carlson APRN, CRNA Anesthesia Type: MAC ASA Status: 3 Anesthesia Type: MAC Last vitals BP (!) 169/71 (08/16/17 1000) Temp 36.8 ??C (08/16/17 0951) Pulse 64 (08/16/17 0951) Resp 14 (08/16/17 0951) SpO2 99 % (08/16/17 09) Anesthesia Post Evaluation Anesthesia Preprocedure Evaluation - Karl Carlson APRN, CRNA - 08/16/2017 9:54 AM CDT Anesthesia Pre-Evaluation Pertinent components of the patient's history including current problem list, medical history, surgical history, family history, social history, medications and allergies were reviewed and updated as appropriate. The patient was examined and the Pre-op diagnosis, planned procedure, and H&P were reviewed and remain unchanged. PROBLEM LIST Relevant Problems ONC (+) Malignant Neoplasm Of Esophagus (HCC) Other (+) Apnea Sleep Obstructive (+) Vicente's Esophagus (+) Dysplasia Esophagus (+) Dysthymic disorder (+) Meningioma Brain (HCC) (+) Parkinson Disease (HCC) (+) PreDiabetes OBJECTIVE PHYSICAL EXAMINATION Airway (HEENT) Mallampati: I TM Distance: >3 FB Neck ROM: Full Cardiovascular Rhythm: Regular Rate: Normal Cardiovascular Assessment: Normal Pulmonary Pulmonary Assessment: Clear Neurological Normal Dental Normal General / Constitutional Normal ASSESSMENT / PLAN ANESTHESIA PLAN ASA: 3 Anesthesia Plan: MAC Patient seen and allergies reviewed; anesthesia plan and risks discussed directly with patient / legal guardian, or through an truck jumper; patient evaluated and approved for anesthesia / sedation. Use of blood products discussed with patient who consented to blood products. The use of blood products not discussed documented in this encounter Plan of Treatment Not on filedocumented as of this encounter Visit Diagnoses Not on filedocumented in this encounter Administered Medications Inactive Administered Medications - up to 3 most recent administrations Medication Order MAR Action Action Date Dose Rate Site acetaminophen injection Given 08/16/2017 10:30 AM CDT 1,000 mg (OFIRMEV) Administer over 15 Minutes, As needed, Starting on Mon08/16/17 at 1030, Anesthesia Intra-op fentaNYL injection (SUBLIMAZE) Given 08/16/2017 10:30 AM CDT 25 mcg intravenous, As needed, severe pain or score 7-10 of 10, Starting on Mon08/16/17 at 1030, Anesthesia Intra-op glycopyrrolate injection (ROBINUL) Given 08/16/2017 10:25 AM CDT 0.2 mg As needed, Starting on Mon08/16/17 at 1025, Anesthesia Intra-op lactated ringers New Bag 08/16/2017 10:17 AM CDT intravenous, Continuous Infusion: Per Instructions PRN, Starting on Mon08/16/17 at 1017, Anesthesia Intra-op lidocaine (PF) (cardiac) injection Given 08/16/2017 10:17 AM CDT 40 mg intravenous, As needed, Starting on Mon08/16/17 at 1017, Anesthesia Intra-op propofol 10 mg/mL infusion New Bag 08/16/2017 10:17 150 mcg/kg/min 79.7 mL/hr (DIPRIVAN) AM CDT intravenous, Continuous Infusion: Per Instructions PRN, Starting on Mon08/16/17 at 1017, Anesthesia Intra-op propofol injection (DIPRIVAN) Given 08/16/2017 10:25 AM CDT 10 mg intravenous, As needed, Starting on Mon08/16/17 at 1025, Anesthesia Intra-op Given 08/16/2017 10:21 AM CDT 20 mg documented in this encounter
--- OUTSIDE RECORDS SUMMARY | 2022-01-16 15:59 | XMS_ITS | Encounter Summary ---
:[address] [facility] Address [address] [place] [address] Care Team Providers Name Role Phone Unavailable Primary Care Provider Unavailable Reason for Visit Reason Onset Date Comments QUESTIONS 04/03/2018 Encounter Details Date Type Department Care Team Description 04/03/2018 Clinical Communication Department of Urology Virgil Francisco QUESTIONS in Herb Ramirez M.D. [address] [place] [phone] [phone] Social History Tobacco Use Types Packs/Day Years [...] More than 4 times per year 09/25/2021 mosque services? Do you belong to any clubs [...] or slept in a detention (including now)? Sex Assigned at Date Recorded Male 08/14/2017 2:01 PM CDT documented as of this encounter Miscellaneous Notes Telephone Encounter - Mary Ann Mcgee - 04/04/2018 1:54 PM CST Called and talked to Mrs. Franz. Relayed message about showering and sent the patient the link to the video in an online message. THERAPY SPECIALIST Telephone Encounter - Jodee Garza P.A.-C., M.S. - 04/04/2018 12:29 PM ART THERAPY SPECIALIST I have no idea what video they are talking about, and since I can't see their guide, I can't help with that. We don't have a video that I'm aware of so, I would just disregard this. He doesn't need special soap. He's having an internal biopsy of the bladder. THERAPY SPECIALIST Telephone Encounter - Lilia Calix R.N. - 04/04/2018 10:35 AM ART THERAPY SPECIALIST I am unaware of the video that they are trying to open, the OPC team doesn't make them watch anything. Maybe that is something Tyler service assigned to them? He does not have to use any special soap prior to surgery, a normal shower is fine. THERAPY SPECIALIST Telephone Encounter - Rupali Seth - 04/03/2018 4:28 PM CST Do one of you want to answer this patient's questions or refer back to Dr. Tyler ? I didn't think there was any special soap, but thought you would know better. Thanks. THERAPY SPECIALIST Telephone Encounter - Jamilah Guerrero - 04/03/2018 4:18 PM CST of patient called. Received the OPC appointment guide, but cannot get the video mentioned on page 6 to come up or open. Also, patient knows to shower prior, but is he supposed to use a special soap. Please call [phone] to advise. Thank you. THERAPY SPECIALIST documented in this encounter Plan of Treatment Not on filedocumented as of this encounter Visit Diagnoses Not on filedocumented in this encounter
--- OUTSIDE RECORDS SUMMARY | 2022-01-16 15:59 | XMS_ITS | Encounter Summary ---
:1935 Author Organization [facility] Address [address] [place] [address] Care Team Providers Name Role Phone Unavailable Primary Care Provider Unavailable Encounter Details Date Type Department Care Team Description 03/14/2018 Anesthesia Event Division of Gastroenterology Derrick Haas in [facility] lizett Cortes, MATERIAL DISPOSITION INSPECTOR, VP PATIENT, [address] [place] [address] [address] [place] [address] [place] [address] Anesthesia Record Procedure Summary Procedure Name Responsible Anesthesia Start Anesthesia Stop Time Anesthesiologist Time EGD Derrick Haas, MARGOT, 03/14/18 0758 8 0950 (ESOPHAGEALGASTRODU VP PATIENT, [facility] ODENOSCOPY) Events Date Time Event Comment 03/14/2018 0758 An Start Machine/Equipmen t Checked Infection Precautions Foll owed Procedure/Site Verified NPO Sta tus Verified Supine Standard ASA Mon itors Applied 0758 In Room 0803 Turnover to Proceduralist 0807 Proc Start 0936 Turnover to ANE Staff 0937 Proc Fin 0943 an stop data 0950 An End I completed my h andoff to the receiving staff during [facility] ch we 1. Identified the patient [...] mcg/mL 25 mcg propofol 10 mg/mL infusion 692.18 mg propofol 10 mg/mL injection 100 mg lidocaine 2% (mg) injection 40 mg ondansetron PF 4 mg/2 mL injection 4 mg Lactated Ringers Free Drip 500 mL Agents No agents on file. Blood No blood administrations on file. Lines, Drains, and Airways Type Details Placement Removal Peripheral IV Placement Date: 03/14/18; 03/14/18757 by 03/14 1230 by Placement Time: 757; Derrick Haas APRN, S poelstra, Tara A, Catheter Size: 20 G; AARON SANCHEZ R.NCarey Orientation: Right; Location: Antecubital; Removal Date: 03/14/18; Removal Time: 1229 documented in this encounter Social History Tobacco [...] encounter OR Notes Anesthesia Postprocedure Evaluation - Derrick Haas APRN, CRNA, DNAP - 03/14/2018 9:56 AM CST Patient: Nii Franz Procedure Summary Date: 03/14/18 Room / Location: Division of Gastroenterology in [place], [place] Anesthesia Start: 0758 Anesthesia Stop: 09 Procedures: EGD (ESOPHAGEALGASTRODUODENOSCOPY) ENDOSCOPIC ULTRASOUND (EUS) Diagnosis: Malignant Neoplasm Of Esophagus (HCC) Scheduled Providers: Derrick Haas APRN, CRNA, DNAP Responsible Provider: Derrick Haas APRN, CRNA, DNAP Anesthesia Type: MAC ASA Status: 2 Anesthesia Type: MAC Last vitals BP 107/59 (03/14/18 0948) Temp 36.6 ??C (03/14/18 0733) Pulse 69 (03/14/1848) Resp 14 (03/14/18 0948) SpO2 95 % (03/14/1848) Anesthesia Post Evaluation Patient Disposition: dismissal Cardiovascular status: hemodynamics (HR & BP) acceptable Respiratory status: patent airway with spontaneous effort Temperature: normothermic Oxygen requirements: room air Level of consciousness: sedated but awakens easily Pain score: pain adequately controlled and/or at baseline Post Op nausea/vomiting: none Hydration status: euvolemic INTAKE Anesthesia Preprocedure Evaluation - Derrick Haas APRN, CRNA, DNAP - 03/14/2018 7:56 AM CST Anesthesia Pre-Evaluation Pertinent components of [...] Neck ROM: Full Mouth Opening: >3 cm Cardiovascular Rhythm: Regular Rate: Normal Cardiovascular Assessment: cardiovascular normal Functional Capacity: >4 METS Pulmonary Pulmonary Assessment: Clear Neurological Normal Dental Normal General / Constitutional Normal ASSESSMENT / PLAN ANESTHESIA PLAN ASA: 2 Anesthesia Plan: MAC Patient seen and allergies reviewed; anesthesia plan and risks discussed directly with patient / legal guardian, or through an product sales representative; patient evaluated and approved for anesthesia / sedation. Use of blood products discussed with patient who consented to blood products. INTAKE documented in this encounter Plan of Treatment Not on filedocumented as of this encounter Visit Diagnoses Not on filedocumented in this encounter Administered Medications Inactive Administered Medications - up to 3 most recent administrations Medication Order MAR Action Action Date Dose Rate Site fentaNYL injection (SUBLIMAZE) Given 03/14/2018 8:00 AM RN INTAKE 25 mcg intravenous, As needed, severe pain or score 7-10 of 10, Starting on Mon03/14/18 at 0800, Anesthesia Intra-op lactated ringers New Bag 03/14/2018 9:30 AM RN INTAKE intravenous, Continuous Infusion: Per Instructions PRN, Starting on Mon03/14/18 at 0800, Anesthesia Intra-op New Bag 03/14/2018 8:00 AM RN INTAKE lidocaine (PF) (cardiac) injection Given 03/14/2018 8:00 AM RN INTAKE 40 mg intravenous, As needed, Starting on Mon03/14/18 at 0800, Anesthesia Intra-op ondansetron (PF) injection (ZOFRAN) Given 03/14/2018 8:00 AM RN INTAKE 4 mg intravenous, As needed, nausea, vomiting, Starting on Mon03/14/18 at 0800, Anesthesia Intra-op propofol 10 mg/mL infusion New Bag 03/14/2018 8:00 AM 75 mcg/kg/mi n 37.8 mL/hr (DIPRIVAN) RN INTAKE intravenous, Continuous Infusion: Per Instructions PRN, Starting on Mon03/14/18 at 0800, Anesthesia Intra-op propofol injection (DIPRIVAN) Given 03/14/2018 9:26 AM RN INTAKE 20 mg intravenous, As needed, Starting on Mon03/14/18 at 0800, Anesthesia Intra-op Given 03/14/2018 9:22 AM RN INTAKE 20 mg Given 03/14/2018 9:18 AM RN INTAKE 20 mg documented in this encounter
--- OUTSIDE RECORDS SUMMARY | 2022-01-16 15:59 | XMS_ITS | Encounter Summary ---
:1935 Author Organization [facility] Address [address] [place] [address] Care Team Providers Name Role Phone Unavailable Primary Care Provider Unavailable Encounter Details Date Type Department Care Team Description 03/14/2018 Hospital Division of Alyx Villafana APRN, C.N.P. [address] [place] [phone] Malignant Neoplasm Encounter Gastroenterology in Derrick Haas APRN, ADNIEL, DNAP [address] [place] [phone] Of Esophagus (HCC) [place], [place] [address] [place], [place] [phone] Social History Tobacco Use Types Packs/Day [...] More than 4 times per year 09/25/2021 moravian services? Do you belong to any clubs [...] or slept in a longterm (including now)? Sex Assigned at Date Recorded Male 08/14/2017 2:01 PM CDT documented as of this encounter Last Filed Vital Signs Vital Sign Reading Time Taken Comments Blood Pressure 141/69 03/14/2018 12:20 PM PARI MUTUEL CLERK Pulse 69 03/14/2018 12:20 PM PARI MUTUEL CLERK Temperature 36.4 ??C (97.5 ??F) 03/14/2018 11:07 AM PARI MUTUEL CLERK Respiratory Rate 16 03/14/2018 12:20 PM PARI MUTUEL CLERK Oxygen Saturation 96% 03/14/2018 12:20 PM PARI MUTUEL CLERK Inhaled Oxygen Concentration - - Weight - - Height 175.3 cm (5' 9) 03/14/2018 7:33 AM PARI MUTUEL CLERK Body Mass Index - - documented in this encounter Discharge Instructions Discharge InstructionsIngVelvet siddiqi R.N. - 03/14/2018 9:48 AM PARI MUTUEL CLERK Full liquid 24 then soft diet. Cryo restrictions given No NSAIDs for 2 weeks MUTUEL CLERK AttachmentsThe following attachments cannot be sent through Care Everywhere. Types of Diets (Greenlandic)documented in this encounter Medications at Time [...] every month. documented as of this encounter Progress Notes Alyx Villafana APRN, C.N.P. - 03/15/2018 3:45 PM CST Mr. Franz was seen in the Division of Gastroenterology and hepatology on March 14, [address] Carranza. On this occasion EGD and EUS were performed. Findings included Vicente's C0-S1przzi was biopsied and treated with cryotherapy. The wall of the distal esophagus appeared thickenedand was sampled with fine-needle aspiration. This was negative for malignancy. 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 #2 GERD He should continue on Nexium 40 mg twice daily prior to morning and evening meals, Zantac at bedtime, and Carafate after meals. ?? MUTUEL CLERK documented in this encounter Nursing Notes Pamela Dunn R.N. - 03/14/2018 10:54 AM CST Shortly after patient came back from procedure he was very confused, did not know where he was, and was in A-fib with hr in the 60s-70s. I notified lead anesthesia about the confusion and HR. Anesthesia saw him and decided to order an EKG 12-lead. I spoke with his she said that he usually has a hard time coming out of anesthesia. He also had a colonoscopy with sedation on 02/10/2018 and will be receiving a cystoscopy on 03/16/2018 with sedation. Patient has had a history of mental status changes after receiving fentanyl, which he did get today. MUTUEL CLERK documented in this encounter Plan of Treatment Scheduled Orders Name Type Priority Associated Diagnoses Order S chedule EGD GI Routine Malignant Neoplasm Of Esopha preston Once for 1 Occurrences starting (HCC) 03/14/2018 unti l 03/14/2018 documented as of this encounter Procedures Procedure Name Priority Date/Time Associated Comments Diagnosis ECG STAT 03/14/2018 11:33 AM Results for this PARI MUTUEL CLERK procedure are i n the results section. CYTOLOGY FINE NEEDLE Routine 03/14/2018 8:31 AM R esults for this ASPIRATION (INCLUDES PARI MUTUEL CLERK procedu re are in CORE BIOPSIES the results section. SURGICAL PATHOLOGY Routine 03/14/2018 8:13 AM Res ults for this PARI MUTUEL CLERK procedure are i n the results section. UPPER EUS Routine 03/14/2018 7:51 AM Malignant Neoplasm Res ults for this PARI MUTUEL CLERK Of Esophagus (HCC) procedure are in the results section. ENDOSCOPIC Routine 03/14/2018 7:51 AM Malignant Neoplasm ULTRASOUND (EUS) PARI MUTUEL CLERK Of Esophagus (HCC) documented in this encounter Results ECG 12 Lead (03/14/2018 11:33 AM PARI MUTUEL CLERK) P athologist Signature Ventricular Rate 65 BPM MUSE ECG/Min OR Interval 156 ms MUSE QRSD Interval 106 ms MUSE QT Interval 430 ms MUSE QTC Interval 447 ms MUSE P [place] 47 degrees MUSE R [place] 30 degrees MUSE T Wave [place] 42 degrees MUSE Specimen Anatomical Collection Method Collection Time Receive d Time (Source) Location / / Volume Laterality 03/14/2018 11:33 03/14/2018 AM PARI MUTUEL CLERK 11:37 AM PARI MUTUEL CLERK Impressions MUSE - 03/14/2018 11:37 AM PARI MUTUEL CLERK Normal sinus rhythm Normal ECG When compared with ECG of 23-MAR-2015 09 :47, No significant change was found Narrative This result has an attachment that is no t available. Procedure Note Nishant Tipton M.D. - 03/14/2018Format ting of this note might be different from the original. IMPRESSION: Normal sinus rhythm Normal ECG When compared with ECG of 23-MAR-2015 09 :47, No significant change was found Mary Carmen Zavala APRN, CRNA, D.N.P. ECG ORDERABLES Performing Organization Address City/State/ZIP Code Phon e Number MUSE MUSE NA Cytology Fine Needle Aspiration (including core biopsies) (03/14/2018 8:31 AM PARI MUTUEL CLERK) Component Value Ref Test Analysis Performed At [facility] gist Range Method Time Signature Gross Description Received 6 alcohol-fixed smears, ??2cc of bloo d tinged fluid 03/15/2018 [facility] and tissue. 10:13 AM LABORATORIES - Additionally, received in formalin labeled with the [facility] patient's name, medical record number and esophagus, CAMPUS esophageal wall shark core biopsy at 30 cm multiple pale lawrence-red soft tissue cores and fragments, 1.4 x 0.6 x 0.1 cm in aggregate. Specimens are submitted en toto in cassette A1. Grossed by AV. Crawford in [place] 03/15/2018 [facility] rico Quiros, 10:13 AM LABORATORIES - Interpretation M.D.-Pathology [facility] Source A. Soft Tissue, Esophagus; Wall shark core bx at 38cm, 03/15/2018 [facility] esophagus, fine needle aspiration 10:13 AM LABORATORIES - [facility] Report Warren Lenz M.D. [phone] 03/15/2018 [facility] electronically I verify that I have examined all relevant slides/ma terials 10:13 AM LABORATORIES - signed by for the specimen(s) and rendered or confirmed the diagnosi s. [facility] Seen in consultation with: GIORGIO Medina M.D. [phone] 03/15/2018 [facility] 10:13 AM LABORATORIES - [facility] Interpretation A. Soft Tissue, Esophagus; Wall shark core bx at 38c m, 03/15/2018 [facility] esophagus, fine needle aspiration (smears/cell block/core 10:13 AM LABORATORIES - biopsy): Negative for malignancy. ??Fragments of benign [facility] squamous and foveolar epithelium with chronic active CAMPUS inflammation. Specimen (Source) Anatomical Collection Method Collection Time Re ceived Time Location / / Volume Laterality Aspirate 03/14/2018 8:31 AM (Esophagus) PARI MUTUEL CLERK Comment: Shark core needle used for all, passes 4 and 5 in formalin. Passes 1-3 slides and wash bottle. Narrative This result has an attachment that is no t available. Darrell Carranza M.D. LAB SURG PATH ORDERABLES Performing Organization Address City/State/ZIP Code Phon e Number [facility] LABORATORIES - [address] [place], [place] [address] [facility] Surgical Pathology (03/14/2018 8:13 AM PARI MUTUEL CLERK) Component Value Ref Test Analysis Performed At [facility] gist Range Method Time Signature Gross Description A: ?? Received in formalin labeled with the patie nt's name, 03/15/2018 [facility] medical record number, and esophagus-esophagus, EMR scar 11:09 AM LABORATORIES - at 35 cm are multiple pale htc-atsocyuzkdf-wtxty irregula r [facility] soft tissues, ranging from 0.1-0.7 cm in greatest CAMPUS dimension. Due to the scant nature of the tissue fragments, some or all may not survive processing. Specimens are submitted en toto in cassettes A1-A2, six specimens in each cassette. Grossed by DMR. B: ?? Received in formalin labeled with the patient's name, medical record number, and esophagus-esophagus, 35-36 cm are seven pale lawrence-pink irregular soft tissues, ranging from 0.1-0.6 cm in greatest dimension. Due to the scant nature of the tissue fragments, some or all may not survive processing. Specimens are submitted en toto in cassette B1. Grossed by DMR. Report Tarun Gambino M.D. [phone] 03/15/2018 [facility] electronically I verify that I have examined all relevant slides/ma terials 11:09 AM LABORATORIES - signed by for the specimen(s) and rendered or confirmed the diagnosi s. [facility] 03/15/2018 [facility] 11:09 AM LABORATORIES - [facility] Interpretation FINAL DIAGNOSIS 03/15/2018 [facility] A. Esophagus, scar @ 35cm, endoscopic biopsy: ??Hyperplast ic 11:09 AM LABORATORIES - squamous esophageal mucosa with acute and chronic [facility] inflammation. ??No specialized Vicente's mucosa. ??No CAMPUS dysplasia. B. Esophagus, 35-36cm, endoscopic biopsy: ??Specialized Vicente's mucosa. ??No dysplasia. Specimen (Source) Anatomical Collection Method Collection Time Re ceived Time Location / / Volume Laterality Biopsy 03/14/2018 8:13 AM (Esophagus) PARI MUTUEL CLERK Biopsy 03/14/2018 8:14 AM (Esophagus) PARI MUTUEL CLERK Narrative This result has an attachment that is no t available. Darrell Carranza M.D. LAB SURG PATH ORDERABLES Performing Organization Address City/State/ZIP Code Phon e Number [facility] LABORATORIES - [address] [place], [place] [address] [facility] Upper EUS (03/14/2018 7:51 AM PARI MUTUEL CLERK) Specimen (Source) Anatomical Collection Method Collection Time Re ceived Time Location / / Volume Laterality 03/14/2018 7:51 AM PARI MUTUEL CLERK Impressions [facility] - 03/14/2018 9:59 AM PARI MUTUEL CLERK Post-op Diagnoses: ? - EGD : Short segment residual Ba rrett's esophagusC0-M1 per Yarnell ? criteria. Scars at sites of prior endoscopic resection. Surveillance ? biopsies obtained. Scar and BE se gment ablated with spray cryotherapy ? using liquid nitrogen. 2 sites (2 0 sec each X 3 each site). 4 cm hiatal ? hernia. Normal examined duodenum. ? - EUS : Wall thickening was seen in the lower third of the esophagus ? (7-8 mm) . Fine needle aspiration performed. Shark cores and cytology ? slides obtained. Endosonographic images of the stomach were ? unremarkable. There was no sign o f significant pathology in the examined ? duodenum. There was no evidence o f significant pathology in the left ? lobe of the liver. Endosonographi c images of the left adrenal gland were ? unremarkable. There was no sign o f significant pathology in the entire ? pancreas. There was no sign of si gnificant pathology in the common bile ? duct. Benign appearing subcarinal LNs. Narrative [facility] - 03/14/2018 9:59 AM PARI MUTUEL CLERK Reym[facility] 6 GI GI Patient Name: Nii Franz Date of : 1935 Age: 82 Gender: Male Procedure Date: 03/14/2018 Procedure: ? Upper EU S Providers: ? Darrell Carranza MD Referring Provider: ?Alyx Villafana Pre-op Diagnoses: ?Esophageal adenocarcinoma/Post-endoscopic resection, ? For therapy of Vicente's esophagus, Vicente's high ? gra de dysplasia Recommendation: ? - The patient will be observed po st-procedure, until all discharge ? criteria are met. ? - Await pathology results. Findings: ? Endoscopic Finding : ? Esophagogastric landmarks were id entified: the Z-line was found at 36 ? cm, the gastroesophageal junction was found at 37 cm and the site of ? hiatal narrowing was found at 41 cm from the incisors. ? The esophagus and gastroesophagea l junction were examined with white ? light and narrow band imaging (NB I) from a forward view and retroflexed ? position. There were esophageal m ucosal changes classified as Vicente's ? stage C0-M1 per Yarnell criteria. These changes involved the mucosa at ? the upper extent of the gastric f olds (37 cm from the incisors) ? extending to the Z-line (36 cm fr om the incisors). No visible ? abnormalities were present. Mucos a was biopsied with a cold jumbo ? forceps for histology in a target ed manner and in 4 quadrants at ? intervals of 2 cm in the lower th ird of the esophagus. A total of 2 ? specimen bottles were sent to [facility]. The decision was made to ablate ? with spray cryotherapy. Endoscopi c visualization identified an ablation ? site including the entire visible Vicente's segment that was not ? circumferential. A guidewire was placed in the stomach and the endoscope ? was removed. Ventilation tubing w as inserted over the guidewire, and the ? wire removed. A clear cap was fit radha to the distal tip of the endoscope. ? The endoscope was reinserted and the ablation catheter was inserted via ? the working channel. A total of t wo sites were ablated. Liquid nitrogen ? cryogen was applied for 20 second s after the first appearance of a ? frosting effect. Suction-aided ve ntilation of gases through the ? ventilation tubing continued duri ng therapy and for 20 seconds ? thereafter. The ablated area was allowed to thaw for 60 seconds. ? Ablation was repeated in a likewi se fashion at each site for a total of ? three cycles. No complications we re observed at the conclusion of ? therapy. The ventilation tubing w as removed. The endoscope was ? reinserted and the areas of the e sophagus where Vicente's mucosa had ? been ablated were examined. Areas of Vicente's esophagus were completely ? ablated. ? A 4 cm hiatal hernia was present. ? The examined duodenum was normal. ? Endosonographic Finding : ? Diffuse wall thickening was visua lized endosonographically in the lower ? third of the esophagus. The thick ness of the abnormal layers measured 4 ? mm. The esophageal wall measured up to 8 mm in total thickness. Fine ? needle aspiration for cytology wa s performed. Color Doppler imaging was ? utilized prior to needle puncture to confirm a lack of significant ? vascular structures within the ne edle path. Five passes were made with ? the 22 gauge needle using a trans esophageal approach. Some passes were ? made with a stylet. A preliminary cytologic examination was not ? performed. Final cytology results are pending. ? Endosonographic images of the sto mach were unremarkable. ? There was no sign of significant endosonographic abnormality in the ? examined duodenum. ? There was no sign of significant endosonographic abnormality in the left ? lobe of the liver. ? The region of the celiac plexus a nd celiac ganglia was visualized and ? showed no sign of significant end osonographic abnormality. The vascular ? anatomy of the region was normal. ? There was no sign of significant endosonographic abnormality in the left ? adrenal gland. ? There was no sign of significant endosonographic abnormality in the ? entire pancreas. The pancreatic d uct measured up to 2 mm in diameter. ? There was no sign of significant endosonographic abnormality in the ? common bile duct. The maximum alesia meter of the duct was 3 mm. Procedural Details: ? The patient was seen, [...] oxygen saturations ? were monitored continuously. The Endosonoscope was introduced under ? direct vision through the mouth, and advanced to the second part of ? duodenum. The upper EUS was accom plished without difficulty. The patient ? tolerated the procedure well. Complications: ? No immedia te complications. Sedation: ? Anesthesia was administered by an anesthesia professional. The following ? parameters were monitored: oxygen saturation, heart rate, blood ? pressure, respiratory rate, EKG, adequacy of pulmonary ventilation, and ? response to care. Attending Participation: I personally pe rformed the entire procedure. Darrell Carranza MD 03/14/2018 9:59:07 AM This report has been signed electronical ly. Number of Addenda: 0 Alyx Villafana APRN, C.N.P. GI PROCEDURE ORDERABLES Performing Organization Address City/State/ZIP Code Phon e Number [facility] documented in this encounter Visit Diagnoses Diagnosis Malignant Neoplasm Of Esophagus (HCC) documented in this encounter Administered Medications documented in this encounter Active and Recently Administered Medications Times are shown in PARI MUTUEL CLERK. Continuous Medication Order 03/12/2018 03/13/2018 03/14/2018 lactated ringers 0815 (Due) 20 mL/hr, intravenous, at 20 mL/hr, Cont inuous, Starting Mon03/14/18 at 0815, PACU & Post-Op documented in this encounter
--- OUTSIDE RECORDS SUMMARY | 2022-01-16 15:59 | XMS_ITS | Encounter Summary ---
:[address] [facility] Address [address] [place] [address] Care Team Providers Name Role Phone Unavailable Primary Care Provider Unavailable Encounter Details Date Type Department Care Team Description 03/13/2018 Hospital Encounter Department of Laboratory TylerDanni, Hematuria Medicine and Pathology, [place] [address] [place], [place] [address] [place] [phone] [place] [address] [phone] Social History Tobacco Use Types Packs/Day Years [...] More than 4 times per year 09/25/2021 muslim services? Do you belong to any clubs [...] fatty acids-fish Take 1 capsule by 0 /04/24/2019 oil (FISH OIL) 300-1,000 mouth daily. mg [...] Procedure Name Priority Date/Time Associated Comments Diagnosis CREATININE WITH Routine 03/13/2018 2:25 PM Hematuria Result s for this EGFR, S/P REMOTE RUBY ON RAILS DEVELOPER procedure are i n the results section. documented in this encounter Results Creatinine with Estimated GFR (03/13/2018 2:25 PM REMOTE RUBY ON RAILS DEVELOPER) Analysis Performed At Patho logist Time Signature Creatinine 1.13 0.74 - 03/13/2018 [facility] 1.35 mg/dL 3:25 PM REMOTE RUBY ON RAILS DEVELOPER LABORATORIES [facility] eGFR-Non 60 >=60 03/13/2018 [facility] Black/ mL/min/BSA 3:25 PM REMOTE RUBY ON RAILS DEVELOPER LABORATORIES - [facility] Comment: ----ADDITIONAL INFORMATION---- Estimated GFR calculated using the 2009 CKD_EPI creatinine equation. eGFR-Black/ 70 >=60 mL/min/BSA 03/13/2018 3:25 [facility] Samoan REMOTE RUBY ON RAILS DEVELOPER LABORATORIES [facility] Comment: ----ADDITIONAL INFORMATION---- Estimated GFR calculated using the 2009 CKD_EPI creatinine equation. Specimen Anatomical Collection Method Collection Time Receive d Time (Source) Location / / Volume Laterality Blood (Blood, 03/13/2018 2:25 PM 03/13/20 18 2:46 Venous) REMOTE RUBY ON RAILS DEVELOPER PM REMOTE RUBY ON RAILS DEVELOPER Dimitris Tyler M.D. LAB BLOOD ADD-ON Performing Organization Address City/State/ZIP Code Phon e Number [facility] LABORATORIES - 200 [place], [place] [address] [facility] documented in this encounter Visit Diagnoses Diagnosis Hematuria documented in this encounter
--- OUTSIDE RECORDS SUMMARY | 2022-01-16 15:59 | XMS_ITS | Encounter Summary ---
:1935 Author Organization [facility] Address [address] [place] [address] Care Team Providers Name Role Phone Unavailable Primary Care Provider Unavailable Encounter Details Date Type Department Care Team Description 01/03/2018 Clinical Communication Division of [facility] in [place], [place] VINE FRUIT FARMING SUPERVISOR, C.N.P. [address] [place] [address] [address] [place] [address] [place], [place] [phone] Social History Tobacco Use Types Packs/Day Years [...] or relatives? How often do you attend episcopalian or More than 4 times per year 09/25/2021 judaism services? Do you belong to any clubs or Yes 09/25/2021 organizations such as episcopalian groups, unions, fraternal or athletic groups, or [...]
--- OUTSIDE RECORDS SUMMARY | 2022-01-16 15:59 | XMS_ITS | Encounter Summary ---
:1935 [facility] Address [address] [place] [address] Care Team Providers Name Role Phone Unavailable Primary Care Provider Unavailable Reason for Visit Appointment Request (Routine) - Closed Specialty Diagnoses / Procedures Referred By Contact Refer red To Contact Urology Valentino Thomas M.D . [address] [place] [address] Referral ID Status Reason Start Date Expiration Date Visits Requ ested Visits Authorized [id number] Closed 02/23/2018 02/23/2019 1 1 Encounter Details Date Type Department Care Team Description 03/16/2018 Comprehensive Visit Department of Dimitris Tyler Tumo r Bladder Urology in M.D. Uncertain Behavior [place], [facility] (Primary Dx) [place], [place] [address] [place] [id number] [place], [place] [phone] (Work) [phone] Social History Tobacco Use Types Packs/Day Years [...] or slept in a custodial (including now)? Sex Assigned at Date Recorded Male 08/14/2017 2:01 PM CDT documented as of this encounter H&P Notes Regina Coelho M.D. - 03/16/2018 2:00 PM CST REFERRAL SOURCE The patient is being seen in consultation at the request of Valentino Thomas M.D. [facility], [address] [place] [address] for recommendations regarding No chief complaint on file. HISTORY OF PRESENT ILLNESS Mr. Franz is a pleasant 82 y.o. male who presents today for discussion of gross hematuria. The patient is single episode painless gross hematuria. He was subsequently recommended to undergo evaluation. He returns today discuss the results. 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 However PET-CT was negative following treatment of the vanna recurrence. The the PET-CT did show anenhancing lesion in the kidney. This appears consistent with an angiomyolipoma. There is also PET avidity within the bladder. The patient has some recent urinary urgency and frequency. This is associated with watery diarrhea. At this been going on for approximately the last week. He underwent a colonoscopy recently. He is a nonsmoker. Answers for HPI/ROS submitted by the patient on 03/12/2018 Fatigue: Yes No eye issues: Yes No ENT issues: Yes No heart issues: Yes No respiratory issues: Yes Difficulty swallowing: Yes Heartburn: Yes Constipation: Yes Diarrhea: Yes No muscle/bone issues: Yes No skin issues: Yes Loss of balance or tendency to fall easily: Yes Little interest or pleasure in doing things: Yes Feeling nervous, anxious or on edge: Yes No blood/lymph issues: Yes Frequent urination: Yes Urgency: Yes Incontinence (urine leakage): Yes Sensation that your bladder is not completely emptying after urinating: Yes Lower Urinary Sx: hematuria (+) able to sense full bladder (+) frequency (+) 8 x per day 2 x nightly Presence of pelvic pain: abdominal pain (+) Obstructive Sx: kidney infections or required hospitalization for kidney failure (-) # of UTI's in past year: Not applicable Required catheter: no Incontinence: urge incontinence (+) unintentionally leaks urine (+) leaking occurs during coughing, sneezing or lifting heavy objects (-) experiences a feeling of urgency before leaking (-) Treatments: Treatments taken for urinary symptoms: none AUA symptom score: Total Symptom score: 9 /35 Total Quality of Life score: 6 Urology AUA total: 21 PAST MEDICAL/SURGICAL HISTORY MEDICAL Patient Active Problem List Diagnosis Date Noted ??? 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 Apnea Sleep Obstructive 04/14/2014 ??? Dysplasia Esophagus 12/23/2013 ??? Parkinson Disease (HCC) 07/03/2013 ??? Meningioma Brain (HCC) 04/11/2013 ??? 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 Malignant Neoplasm Of Esophagus (HCC) 04/04/2013 ??? PreDiabetes 12/29/2009 Past Medical History: Diagnosis Date ??? Anemia pt states that iron levels normally low ??? Apnea Sleep Obstructive ??? Vicente's Esophagus ??? Constipation ??? Diarrhea ??? Dysfunction Thyroid ??? Gastroesophageal Reflux Disease NOS ??? Hyperlipidemia ??? Malignant Neoplasm Of Esophagus (HCC) ??? Meningioma Brain (HCC) ??? Parkinson Disease (HCC) ??? Polyp Colon ??? Shortness Of Breath ??? Sleep Apnea ??? Ulcer Peptic SURGICAL Past Surgical History: Procedure Laterality Date ??? APPENDECTOMY ??? CATARACT EXTRACTION ??? TONSILLECTOMY ??? TONSILLECTOMY MEDICATIONS Current Outpatient Prescriptions: ??? acetaminophen (TYLENOL) 325 mg tablet, Take 1 tablet by mouth as needed. 1 or 2 325mg prn/ or 1 or 2 500mg prn for pain., Disp: , Rfl: ??? calcium carb/vit D3/minerals (CALCIUM CARBONATE-VIT D3-MIN ORAL), Take 1 tablet by mouth daily.,Disp: , Rfl: ??? CARAFATE 100 mg/mL suspension, TAKE 10 ML (2 TEASPOONSFUL) THREE TIMES A DAY AFTER MEALS, Disp: 900 mL, Rfl: 11 ??? fluticasone (FLONASE) 50 mcg/actuation nasal spray, , Disp: , Rfl: ??? fluticasone (VERAMYST) 27.5 mcg/actuation nasal spray, Administer 1 spray into affected nostril(s) as needed., Disp: , Rfl: ??? levothyroxine (SYNTHROID, LEVOTHROID) 100 mcg tablet, Take 1 tablet by mouth every morning., Disp: , Rfl: ??? loratadine (CLARITIN) 10 mg tablet, Take 1 tablet by mouth as needed., Disp: , Rfl: ??? melatonin 3 mg tablet, Take 3 mg by mouth at bedtime., Disp: , Rfl: ??? omega-3 fatty acids-fish oil (FISH OIL) 300-1,000 mg capsule, Take 1 capsule by mouth daily., Disp: , Rfl: ??? pantoprazole (PROTONIX) 40 mg EC tablet, Take 1 tablet by mouth 2 (two) times a day. One tablet 30 minutes prior to morning and evening meals, Disp: , Rfl: ??? peg 400-propylene glycol (SYSTANE, PROPYLENE GLYCOL,) 0.4-0.3 % ophthalmic solution, , Disp: , Rfl: ??? raNITIdine (ZANTAC) 300 mg tablet, Take 1 tablet by mouth at bedtime. Take one tablet every night at bedtime. Take a 3-day drug holiday every month., Disp: , Rfl: ??? simvastatin (ZOCOR) 20 mg tablet, Take 1 tablet by mouth daily., Disp: , Rfl: ??? tamsulosin (FLOMAX) 0.4 mg 24 hr capsule, Take 2 capsules by mouth daily., Disp: , Rfl: ??? venlafaxine XR (EFFEXOR-XR) 150 mg 24 hr capsule, , Disp: , Rfl: ??? vit C/E/Zn/coppr/lutein/zeaxan (PRESERVISION AREDS 2 ORAL), Take 1 tablet by mouth daily., Disp:, Rfl: No current facility-administered medications for this visit. ALLERGIES Allergies Allergen Reactions ??? Codeine Other (see comments) vaso-vagal episode ??? Fentanyl Nausea Only Slight nausea after eye surgery and mental status changes. SOCIAL HISTORY Social History Social History ??? Marital status: Spouse name: N/A ??? Number of children: N/A ??? Years of education: N/A Occupational History ??? Not on file. Social History Main Topics ??? Smoking status: Never Smoker ??? Smokeless tobacco: Never Used ??? Alcohol use No ??? Drug use: No ??? Sexual activity: Defer Other Topics Concern ??? Not on file Social History Narrative ??? No narrative on file FAMILY HISTORY No family history on file. SYSTEMS REVIEW Additionally, a complete 10 point review of systems was conducted and was negative except for what was mentioned above in the HPI and/or endorsed on the patient survey. PHYSICAL EXAMINATION There were no vitals taken for this visit. General: NAD Mental status: AAOx3 Psychiatric: appropriate disposition HEENT: NCAT, conjugate gaze Respiratory: non-labored breathing Cardiovascular: RRR, upper extremities warm Abdomen: soft, no CVA tenderness Musculoskeletal: moves all 4 extremities Skin: no visible rashes Neurologic: intake sensation to the upper extremities LABS Lab Results Component Value Date NA 142 03/23/2015 K 4.3 03/23/2015 BUN 16 04/09/2013 HGB 13.1 (L) 03/23/2015 HCT 40.8 03/23/2015 WBC 4.8 03/23/2015 Lab Results Component Value Date/Time CREATININE 1.13 03/13/2018 02:25 PM CREATININE 0.9 03/23/2015 10:39 AM CREATININE 1.0 2014 08:08 AM CREATININE 1.1 04/09/2013 04:28 PM No components found for: SPSA MICROBIOLOGY/CULTURE DATA Microbiology Results (last 30 days) Procedure Component Value - Date/Time Bacterial Culture, Aerobic + Susc, Urine [[id number]] Collected: 03/13/18 1553 Lab Status: Final result Specimen: Urine from Urine, Midstream Updated: 03/15/18 0715 Urine Culture No growth after 1 day of incubation. PATHOLOGY Recent Results (from the past 720 hour(s)) Cytology Non-TREER Status: None Result Value Gross Description Received 60 cc of orange fluid. Source A. Urine, voided Report electronically signed by Warren Lenz M.D. [phone] I verify that I have examined all relevant slides/materials for the specimen(s) and rendered or confirmed the diagnosis. Interpretation A. Urine, voided (ThinPrep): Negative for High-Grade Urothelial Carcinoma. *Note: Due to a large number of results and/or encounters for the requested time period, some results have not been displayed. A complete set of results can be found in Results Review. IMAGING AND TESTS No results found. Cystoscopy: 4cm bladder tumor, right lateral wall CTU: mass on right lateral wall. Prostatomegaly. 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 Franz and his in clinic today. We reviewed the findings from his gross hematuria evaluation. This shows that he has a bladder tumor. We would recommend resection under anesthesia.We discussed the next treatment steps would be dependent on the pathology. Risks of the procedure including bladder perforation, need for catheter drain, possible stent placed, infection, and bleeding were all reviewed. Patient understands the risks and wishes to proceed. Informed consent was signed and witnessed. Next available surgical date was selected for April [address] Francisco in the outpatient surgery center. He will need anesthesia clearance here. We would ask that he had urines obtained locally 1-2 weeks prior to surgery with the results faxed to us so that we can ensure he does not have any infection prior to the procedure. Plan 1. TURBT with possible right stent placement 04/12/[address] Francisco 2. PEEWEE 3. Urines done locally 1-2 weeks prior with results faxed to us CIATE PROGRAMMER ANALYST Dimitris Tyler M.D. - 03/16/2018 2:00 PM CST This is a supervisory note on Mr. Franz. Please refer to Dr. Coelho's note. In summary, Mr. Franz is a 82 y.o. male referred for evaluation of hematuria. Patient was discussed with me. I agree with assessment and plan. CIATE PROGRAMMER ANALYST documented in this encounter Plan of Treatment Not on filedocumented as of this encounter Visit Diagnoses Diagnosis Tumor Bladder Uncertain Behavior - Prima ry documented in this encounter
--- OUTSIDE RECORDS SUMMARY | 2022-01-16 15:59 | XMS_ITS | Encounter Summary ---
:1935 Author Organization [facility] Address [address] [place] [address] Care Team Providers Name Role Phone Unavailable Primary Care Provider Unavailable Encounter Details Date Type Department Care Team Description 02/23/2018 Clinical Communication Department of Urology [place] in [place] [address] [place] [phone] Social History Tobacco Use Types Packs/Day Years [...] or relatives? How often do you attend caodaism or More than 4 times per year 09/25/2021 synagogue services? Do you belong to any clubs or Yes 09/25/2021 organizations such as caodaism groups, unions, fraternal or athletic groups, or [...] on filedocumented as of this encounter Results [place] CYSTOURETHROSCOPY (03/16/2018 10:00 AM [employer] GR[employer]ER MACHINE) Specimen (Source) Anatomical Location Collection Method / Collectio n Time Received Time / Laterality Volume Narrative Kelly Nuñez M.D. - 03/16/2018 10:00 AM [employer] MACHINE Kelly Nuñez M.D. ? 03/16/2018 10:52 AM URO Cystoscopy (general) Date/Time: 03/16/2018 10:17 AM Performed by: KELLY NUÑEZ Authorized by: MERCEDEZ MIR Additional procedures performed: cystosc opy ?? Care team members present: ??Faiza Man LPN Consent: ??Consent obtained: ??Verbal ??Consent given by: ??Patient Rawlings protocol: ??All relevant documentation and testin g [...] stent placement. Mercedez Mir M.D. UROLOGY ORDERABLES (ABNORMAL) Urinalysis with Microscopic (03/13/2018 3:54 PM [employer]ACHINE) [facility] gist Method Time Signature Source Midstream 03/13/2018 [facility] 3:54 PM [employer]ACH[employer] [facility] Appearance Normal Normal 03/13/2018 [facility] 4:19 PM [employer] [facility] Osmolality, U 770 150 - 1150 03/13/2018 [facility] mOsm/kg 4:56 PM [employer] MACHINE [facility] pH, U 5.7 4.5 - 8.0 03/13/2018 [facility] 4:56 PM [employer] [facility] Comment: ----ADDITIONAL INFORMATION---- This test was developed and its performa nce characteristics determined by [facility] in a manner co nsistent with CLIA requirements. This test has not bee n cleared or approved by the U.S. Food and Drug Admin istration. Glucose 22 (H) 0 - 15 mg/dL 03/13/2018 4:19 PM [facility] Protein, U 40 (H) <26 mg/dL 03/13/2018 4:19 PM [facility] Comment: ----ADDITIONAL INFORMATION---- On 09/20/2016 the total protein assay me thod changed resulting in approximately a 15% increase in prote in values. Protein/Osmolality 0.52 (H) <0.42 Ratio 03/13/2018 4:56 PM [facility] Comment: ----ADDITIONAL INFORMATION---- On 09/20/2016 the total protein assay me thod changed resulting in approximately a 15% increase in prote in values. Predicted 24 Hr 504 mg/24 h 03/13/2018 4:56 PM [facility] Protein [facility] Predicted Range 160-1589 mg/24 h 03/13/2018 4:56 PM [facility] Hemoglobin, QL Small (A) Negative 03/13/2018 5:35 PM [facility] Comment Micro done on 03/13/2018 5:[address] [facility] <5 mL [facility] Specimen Anatomical Collection Method Collection Time Receive d Time (Source) Location / / Volume Laterality Urine (Urine, 03/13/2018 3:54 PM 03/13/20 5:32 Voided) [employer]INE PM [employer] Mercedez Mir M.D. LAB URINE ORDERABLES Performing Organization Address City/State/ZIP Code Phon e Number [facility] - [address] [place], [place] [address] [facility] Bacterial Culture, Aerobic + Susc, Urine (03/13/2018 3:53 PM [employer]ACHINE) [facility] gist Method Time Signature Urine Culture No growth 03/15/2018 [facility] after 1 7:15 AM [employer] [facility]IES - day [facility] . Specimen Anatomical Collection Method Collection Time Receive d Time (Source) Location / / Volume Laterality Urine (Urine, 03/13/2018 3:53 PM 12/18/20 18 6:09 Midstream) [employer]ACHINE PM [employer] Comment: Specimen Source Site: Urine Mercedez Mir M.D. LAB MICROBIOLOGY - GENERAL O RDERABLES Performing Organization Address City/[facility] Code Phon e Number [facility] - [address] [place] [phone] [facility] Creatinine with Estimated GFR (03/13/2018 2:25 PM [employer]ACHINE) [facility] Time Signature Creatinine 1.13 0.74 - 03/13/2018 [facility] 1.35 mg/dL 3:25 PM [employer] LAB[facility]ATORIES - [facility] eGFR-Non 60 >=60 03/13/2018 [facility] Black/ mL/min/BSA 3:25 PM [employer] [facility] - [facility] Comment: ----ADDITIONAL INFORMATION---- Estimated GFR calculated using the 2009 CKD_EPI creatinine equation. eGFR-Black/ 70 >=60 mL/min/BSA 03/13/2018 3:25 [facility] [place] PM [employer] [facility] Comment: ----ADDITIONAL INFORMATION---- Estimated GFR calculated using the 2009 CKD_EPI creatinine equation. Specimen Anatomical Collection Method Collection Time Receive d Time (Source) Location / / Volume Laterality Blood (Blood, 03/13/2018 2:25 PM 03/13/20 18 2:46 Venous) [employer] MACHINE PM [employer]ACHINE Mercedez Mir M.D. LAB BLOOD ADD-ON Performing Organization Address [facility] Phon e Number [facility] - [address] [place] [phone] [facility] Cytology Non-LAB INTERN (03/13/2018 2:21 PM [employer]ACHINE) Component Value Ref Test Analysis Performed At [facility] gist Range Method Time Signature Gross Description Received 60 03/14/2018 [facility] cc of orange 3:17 PM [employer] LABORATORIES - [facility]. [facility] Source A. Urine, 03/14/2018 [facility] voided 3:17 PM [employer] [facility] Report Warren Lenz M.D. [phone] 03/14/2018 [facility] electronically I verify that I have examined all relevant slides/ma terials 3:17 PM [employer] - signed by for the specimen(s) and rendered or confirmed the diagnosi s. [facility] 03/14/2018 [facility] 3:17 PM [employer] [facility] - [facility] Interpretation A. Urine, voided (ThinPrep): Negative for High-Grade 03/14/2018 [facility] Urothelial Carcinoma. 3:17 PM [employer] MACHINE [facility] Specimen Anatomical Collection Method Collection Time Receive d Time (Source) Location / / Volume Laterality Varies 03/13/2018 2:21 PM 8 4:08 [employer] MACHINE PM [employer] MACHINE Narrative This result has an attachment that is no t available. Mercedez Mir M.D. LAB SURG PATH ORDERABLES Performing Organization Address City/State/ZIP Code Phon e Number [facility] - [address] [place] [phone] [facility] documented in this encounter Visit Diagnoses Diagnosis Hematuria - Primary Hematuria documented in this encounter
--- OUTSIDE RECORDS SUMMARY | 2022-01-16 15:59 | XMS_ITS | Encounter Summary ---
:1935 Author Organization [facility] Address [address] [place] [address] Care Team Providers Name Role Phone Unavailable Primary Care Provider Unavailable Encounter Details Date Type Department Care Team Description 08/16/2017 Ancillary Procedure Department of Gastroenterology Social History [...] More than 4 times per year 09/25/2021 baptism services? Do you belong to any clubs [...] or slept in a intermediate (including now)? Sex Assigned at Date Recorded Male 08/14/2017 2:01 PM CDT documented as of this encounter Plan of Treatment Not on filedocumented as of this encounter Procedures Procedure Name Priority Date/Time Associated Comments Diagnosis GASTROENTEROLOGY IMAGE Routine 08/16/2017 9:20 Re sults for this EXAM AM CDT procedure are i n the results section. documented in this encounter Results GASTROENTEROLOGY IMAGE EXAM (08/16/2017 9:20 AM CDT) Specimen (Source) Anatomical Collection Method Collection Time Re ceived Time Location / / Volume Laterality 08/16/2017 9:18 AM CDT Narrative [facility] - 08/16/2017 11:05 AM CDT This order has been created [...]
--- OUTSIDE RECORDS SUMMARY | 2022-01-16 16:00 | XMS_ITS | Encounter Summary ---
:1935 Author Organization [facility] Address [address] [place] [address] Care Team Providers Name Role Phone Unavailable Primary Care Provider Unavailable Encounter Details Date Type Department Care Team Description 12/14/2016 Telemedicine Department of Gastroenterology Social History Tobacco Use Types Packs/Day Years Used Date Smoking Tobacco: Never Alcohol Habits Answer Date Recorded How often [...] More than 4 times per year 09/25/2021 druze services? Do you belong to any clubs [...] Date/Time Associated Comments Diagnosis GASTROENTEROLOGY IMAGE Routine 12/14/2016 3:20 Re sults for this EXAM PM CDT procedure are i n the results section. documented in this encounter Results GASTROENTEROLOGY IMAGE EXAM (12/14/2016 3:20 PM CDT) Specimen (Source) Anatomical Collection Method Collection Time Re ceived Time Location / / Volume Laterality 12/14/2016 3:19 PM CDT Narrative [facility] - 12/14/2016 4:34 PM CDT This order has been created [...]
--- OUTSIDE RECORDS SUMMARY | 2022-01-16 16:00 | XMS_ITS | Encounter Summary ---
:1935 Author Organization [facility] Address [address] [place] [address] Care Team Providers Name Role Phone Unavailable Primary Care Provider Unavailable Encounter Details Date Type Department Care Team Description 01/06/2016 Hospital Encounter HX [facility] Regina Scott APRN , C.N.P., N.P., M.S.N., R.N. Social History Tobacco Use Types Packs/Day Years Used Date Smoking Tobacco: Never Assessed Alcohol Habits Answer Date Recorded How often [...] Sig Dispensed Refills Start Date End Date loratadine (CLARITIN) 10 Take 1 tablet by 0 09/30 mg tablet mouth daily as needed for allergies. peg 400-propylene glycol Administer 1 drop 0 09/2013 (SYSTANE) 0.4-0.3 % into both eyes 4 ophthalmic solution (four) times a day as needed. simvastatin (ZOCOR) 20 Take 1 tablet by 0 014 mg tablet mouth daily. vit Take 1 tablet by 0 03/10/2015 C/E/Zn/coppr/lutein/zeax mouth 2 (two) times a an (PRESERVISION AREDS 2 day. ORAL) acetaminophen (TYLENOL) Take 1 tablet by 0 201307/09/2019 325 mg tablet mouth as needed. 1 or 2 325mg prn/ or 1 or 2 500mg prn for pain. calcium carb/vit Take 1 tablet by 0 07/21/2015 D3/minerals (CALCIUM mouth daily. CARBONATE-VIT D3-MIN ORAL) clonazePAM (KlonoPIN) Take 1 tablet by 0 04/09/19 14 08/16/2017 0.5 mg tablet mouth at bedtime. fluticasone (VERAMYST) Administer 1 spray 0 09/2905/27/2019 [...] Take a 3-day drug holiday every month. venlafaxine (EFFEXOR) Take 1 tablet by 0 08/31/19 16 12/19/2017 150 mg 24 hr tablet mouth daily. documented as of this encounter Plan of Treatment Not on filedocumented as of this encounter Procedures Procedure Name Priority Date/Time Associated Diagnosis Comme nts PROSTATE-SPECIFIC Routine 01/06/2016 2:30 PM Resu lts for this AG (PSA) CDT procedure are i n DIAGNOSTIC, S the results section. documented in this encounter Results PSA (Prostate-Specific Antigen), Diagnostic (01/06/2016 2:30 PM CDT) P athologist Signature Prostate-Specif 5.29 <=7.20 NGML POWERCHART ic Ag Comment: Serum markers are not specific for joan bladn and values may vary by method. Biotin has been identified by the michelle prado as a potential interfering substance. Higher concentrations of biotin may be found in multivitamins, hair/nail supplements, and workout supplements. If the result does not match clinical observat ions, repeat testing after patient refrains from the use of supplements for at least 12 hours. Specimen (Source) Anatomical Collection Method Collection Time Re ceived Time Location / / Volume Laterality Blood 01/06/2016 2:30 PM CDT Regina Scott APRN, C.N.P., N.P., M.S.N., R.N. LAB BLOOD ADD-ON Performing Organization Address City/State/ZIP Code Phon e Number POWERCHART documented in this encounter Visit Diagnoses Not on filedocumented in this encounter
--- OUTSIDE RECORDS SUMMARY | 2022-01-16 16:00 | XMS_ITS | Encounter Summary ---
:1935 Author Organization [facility] Address [address] [place] [address] Care Team Providers Name Role Phone Unavailable Primary Care Provider Unavailable Encounter Details Date Type Department Care Team Description 12/23/2013 Hospital Encounter HX RST GIH ESOPHAGUS Radha Villafana, SANDWICH ARTIST, C.N.P. [address] [place] [phone] (Wo rk) Social History Tobacco Use Types [...] for the very basics like Not adriana erica hard 09/25/2021 food, housing, medical care, [...] slept in a senior care (including now)? Sex Assigned at Date Recorded Male 08/14/2017 2:01 PM CDT documented as of this encounter Last Filed Vital Signs Vital Sign Reading Time Taken Comments Blood Pressure 154/99 12/23/2013 9:49 AM CDT Pulse 71 12/23/2013 9:49 AM CDT Temperature - - Respiratory Rate - - Oxygen Saturation - - Inhaled Oxygen Concentration - - Weight - - Height - - Body Mass Index - - documented in this encounter Medications at Time of Discharge Medication Sig Dispensed Refills Start Date End Date loratadine (CLARITIN) 10 Take 1 tablet by 0 09/30 mg tablet mouth daily as needed for allergies. simvastatin (ZOCOR) 20 mg Take 1 tablet by 0 03/27 tablet mouth daily. acetaminophen (TYLENOL) Take 1 tablet by 0 201307/09/2019 325 mg tablet mouth as needed. 1 or 2 325mg prn/ or 1 or 2 500mg prn for pain. clonazePAM (KlonoPIN) 0.5 Take 1 tablet by 0 03/2708/16/2017 mg tablet mouth at bedtime. levothyroxine (SYNTHROID, Take 1 tablet by 0 09/201305/29/2019 LEVOTHROID) 100 mcg tablet mouth every morning. 137 mcg documented as of this encounter Plan of Treatment Not on filedocumented as of this encounter Visit Diagnoses Not on filedocumented in this encounter
--- OUTSIDE RECORDS SUMMARY | 2022-01-16 16:00 | XMS_ITS | Encounter Summary ---
:1935 Author Organization [facility] Address [address] [place] [address] Care Team Providers Name Role Phone Unavailable Primary Care Provider Unavailable Encounter Details Date Type Department Care Team Description 11/19/2014 Hospital Encounter HX NO MAPPING Social History Tobacco Use Types Packs/Day Years [...] by 0 014 mg tablet mouth daily. acetaminophen (TYLENOL) Take 1 tablet by 0 201307/09/2019 325 mg tablet mouth as needed. 1 or 2 325mg prn/ or 1 or 2 500mg prn for pain. clonazePAM (KlonoPIN) Take 1 tablet by 0 [...] 12/31/2013 03/14/2018 (SYSTANE) 0.4-0.3 % ophthalmic solution documented as of this encounter Plan of Treatment Not on filedocumented as of this encounter Visit Diagnoses Not on filedocumented in this encounter
--- OUTSIDE RECORDS SUMMARY | 2022-01-16 16:00 | XMS_ITS | Encounter Summary ---
:1935 Author Organization [facility] Address [address] [place] [address] Care Team Providers Name Role Phone Unavailable Primary Care Provider Unavailable Encounter Details Date Type Department Care Team Description 04/10/2013 Hospital Encounter HX NO MAPPING Provider, Historical Social History Tobacco Use Types Packs/Day Years [...] Sig Dispensed Refills Start Date End Date simvastatin (ZOCOR) 20 mg Take 1 tablet by 0 03/27 tablet mouth daily. clonazePAM (KlonoPIN) 0.5 Take 1 tablet by 0 03/2708/16/2017 mg tablet mouth at bedtime. documented as of this encounter Plan of Treatment Not on filedocumented as of this encounter Visit Diagnoses Not on filedocumented in this encounter
--- OUTSIDE RECORDS SUMMARY | 2022-01-16 16:00 | XMS_ITS | Encounter Summary ---
:1935 Author Organization [facility] Address [address] [place] [address] Care Team Providers Name Role Phone Unavailable Primary Care Provider Unavailable Encounter Details Date Type Department Care Team Description 07/15/2013 Hospital Encounter HX RST GIH ESOPHAGUS Radha Villafana, LEGAL OPERATIONS MANAGER, C.N.P. [address] [place] [phone] (Wo rk) Social History Tobacco Use Types [...] or relatives? How often do you attend denominational or More than 4 times per year 09/25/2021 adventism services? Do you belong to any clubs or Yes 09/25/2021 organizations such as denominational groups, unions, fraternal or athletic groups, or [...]
--- OUTSIDE RECORDS SUMMARY | 2022-01-16 16:00 | XMS_ITS | Encounter Summary ---
:1935 Author Organization [facility] Address [address] [place] [address] Care Team Providers Name Role Phone Unavailable Primary Care Provider Unavailable Encounter Details Date Type Department Care Team Description 01/07/2016 Hospital Encounter HX RST GIH PANCREAS Yeni Smith, MARGOT, C.N.P. [address] [phone] (Wo rk) Social History Tobacco Use Types [...]
--- OUTSIDE RECORDS SUMMARY | 2022-01-16 16:00 | XMS_ITS | Encounter Summary ---
:1935 Author Organization [facility] Address [address] [place] [address] Care Team Providers Name Role Phone Unavailable Primary Care Provider Unavailable Encounter Details Date Type Department Care Team Description 05/26/2014 Hospital Encounter HX NO MAPPING Social History [...] 08/16/2017 0.5 mg tablet mouth at bedtime. levothyroxine Take 1 tablet by 0 09/30/201305/28 (SYNTHROID, LEVOTHROID) mouth every morning. 100 mcg tablet 137 mcg peg 400-propylene glycol 1 drop. 0 12/31/2013 03/14/2018 (SYSTANE) 0.4-0.3 % ophthalmic solution documented as of this encounter Plan of Treatment Not on filedocumented as of this encounter Visit Diagnoses Not on filedocumented in this encounter
--- OUTSIDE RECORDS SUMMARY | 2022-01-16 16:00 | XMS_ITS | Encounter Summary ---
:1935 Author Organization [facility] Address [address] [place] [address] Care Team Providers Name Role Phone Unavailable Primary Care Provider Unavailable Encounter Details Date Type Department Care Team Description 01/06/2016 Hospital Encounter HX [facility] UROLOGY Regina Scott, MARGOT, C.N.P., N.P., M.S.N., R.N. Social History Tobacco [...] or relatives? How often do you attend nondenominational or More than 4 times per year 09/25/2021 moravian services? Do you belong to any clubs or Yes 09/25/2021 organizations such as nondenominational groups, unions, fraternal or athletic groups, or [...] Sign Reading Time Taken Comments Blood Pressure 130/60 01/06/2016 12:57 PM CDT Pulse 68 01/06/2016 12:57 PM CDT Temperature - - Respiratory Rate [...] mouth daily. documented as of this encounter Progress Notes Regina Scott, MARGOT, C.N.P. - 01/06/2016 12:23 PM CDT [id number] Here for elevated PSA of 4.67. He was referred Dr. Yuri Loera of [facility] in [place]. HISTORY OF PRESENT ILLNESS Mr. Franz is a very pleasant 80-year-old male who presents today for the above with his . The patient had his PSA drawn elsewhere at [facility] in [place] and it was 4.67 on 01/01/2016. Thepatient states he has been seeing Dr. Loera for his annual prostate cancer screening exams and his prostate has been mildly enlarged, otherwise benign on exam. He states his PSAs have always been inthe 4 range. We have no records here in urology for Mr. Franz as he has been seen by Dr. Loera.He has been seen in [place], however, and followed closely by GI as 3 years ago he was diagnosed with esophageal cancer. He denies a family history of prostate cancer. He denies unusual bone pain or u nintentional weight loss. He does not have a history of smoking. He denies hematuria and dysuria. Hestates that Dr. Loera had started him on Flomax about a month ago and his BPH symptoms have improved significantly with this. He states their drive from [place] to [place] is about 55 minutes and he usually has to stop twice on the way to urinate. They have an upcoming appointment down there soon and he is hoping the will not have to stop now that he has noticed such an improvement in his symptoms with his Flomax. He states before Flomax he was getting up 3 to 4 times a night and now is either none or occasionally. He does say that his frequency has improved greatly along with the urgency. He will sometimes have a little leakage with urgency but that is only occasionally. He denies hesitancy in starting his stream and incomplete emptying, and he states that his stream is strong. He did fill out an AUA symptom index score questionnaire for us today with a total of 14 in part A, a total of5 in part B with a mixed quality of life. Did a uroflow study with a bladder scan today with a voided volume of 71 mL and a PVR pf 54 mL. Max flow rate was 6.2 mL/seconds, average flow rate was 3.0 mL/second. Patient denies constipation as he will use prune juice and this keeps him regular. He denies n ausea, vomiting,, fever and chills. SYSTEMS REVIEW Negative except as per HPI. PHYSICAL EXAMINATION GENERAL: Alert and oriented male in no acute distress. Pleasant and cooperative. RECTAL: Normal sphincter tone. Prostate mildly enlarged, smooth feeling. No nodules or irregularities palpated. IMPRESSION/REPORT/PLAN 1. Elevated PSA referral. 2. Benign prostatic hypertrophy symptoms, improved with the start of Flomax. PLAN: I had the opportunity of meeting with Mr. Franz and his today and we discussed his issues. According to the lab results from [facility] that he brought with him, his PSA total was 4.67 with a standard range of less than 4.00. Explained to the patient that other labs have different ranges and values. I would like to go ahead and draw a PSA using our lab and see what number we come up with. Also told him that our recommended age range is less than 7.2 for his age. I will call him with those results, which should be by the end of the day today. We did discuss annual prostate cancer screening exams and the fact that we stop doing these with a gentleman of his age due to the fact that he wouldlikely pass from another disease rather than prostate cancer due to the slow growing nature of it. He understands this and agrees with the plan. All of their questions were answered. Forty minutes spent in total, thirty minutes of which was spent in counseling and education. Regina Scott C.N.P./aos Electronically Signed By: REGINA SCOTT APRN, CNP On: 01/08/2016 02:47 PM Modified by and Electronically Signed by: REGINA SCOTT APRN, CNP On: 01/08/2016 02:47 PM [facility] Document Id: [id number] Regina Scott APRN C.N.P. - 01/06/2016 12:00 AM CDT [id number] I just left a message as was requested by the patient on his machine with the results of his PSA today which was 5.29, which is within his recommended age range of less than 7.2. I have recommended to him that based on his benign prostate exam today and this current PSA and given his age that we should stop annual prostate screening exams. We discussed this at this visit today too. Barbara SamNJeronimo/rosalie Electronically Signed By: REGINA SCOTT APRN, CNP On: 01/08/2016 02:36 PM Modified by and Electronically Signed by: REGINA SCOTT APRN, CNP On: 01/08/2016 02:36 PM Source: [facility] MHSDOLBEYNAYESHA Document Id: [id number] documented in this encounter Procedure Notes Kyle Richards L.P.N. - 01/06/2016 1:29 PM CDT Bladder Scan Bladder Scan Entered On: 01/06/2016 13:30 CDT Performed On: 01/06/2016 13:29 CDT by KYLE RICHARDS LPN Bladder Scan Void Prior to Bladder Scan : Yes Bladder Distention : Absent Patient States Need to Void : Yes Position During Bladder Scan : Supine Bladder Scan Volume : 54 mL KYLE RICHARDS LPN - 01/06/2016 13:29 CDT Source: [employer] Document Id: [id number] CDT!7 Kyle Richards L.P.N. - 01/06/2016 1:28 PM CDT Urine Dipstick Urine Dipstick Entered On: 01/06/2016 13:29 CDT Performed On: 01/06/2016 13:28 CDT by KYLE RICHARDS LPN Urine Dipstick UA Color POC : Yellow UA Appear POC : Clear UA Leuk POC : 2+ Moderate UA Nitrite POC : Negative UA Protein POC : Negative UA pH POC : 7.5 UA Blood POC : Trace UA Ketones POC : Negative UA Glucose POC : Negative KYLE RICHARDS LPN - 01/06/2016 13:28 CDT Source: [employer] Document Id: [id number] CDT!11 documented in this encounter Miscellaneous Notes Miscellaneous - Kyle Richards L.P.N. - 01/07/2016 3:56 PM CDT Urology AUA/BPH Symptom Score Urology AUA/BPH Symptom Score Entered On: 01/07/2016 15:58 CDT Performed On: 01/07/2016 15:56 CDT by KYLE RICHARDS LPN Urology AUA/BPH Symptom Score Emptying Bladder After Urinating : Not at all Urinate 2 Hours After Urinating : About half the time Stop/Start Again When Urinating : About half the time Difficult to Postpone Urination : More than half the time Weak Urinary Stream : Less than 1 time in 5 Push/Strain to Begin Urination : Not at all Up to Urinate at Night : 2 times Total Symptom Score : 13 Feel About Urinary Condition : Dissatisfied KYLE RICHARDS LPN - 01/07/2016 15:56 CDT [facility] Document Id: [id number] CDT!11 Miscellaneous - Kyle Richards L.PCareyNCarey - 01/06/2016 12:57 PM CDT Adult Museum Exhibit Designer Intake/History Adult Museum Exhibit Designer Intake/History Entered On: 01/06/2016 13:03 CDT Performed On: 01/06/2016 12:57 CDT by KYLE RICHARDS LPN Intake Chief Complaint : Patient referred to us by Dr. Yuri Loera from [facility] for elevated PSA of 4.67. Patient states that he has had some dribbling, frequency. no hematuria noted per patient. Peripheral Pulse Rate : 68 /min Systolic Blood Pressure : 130 mmHg Diastolic Blood Pressure : 60 mmHg NIBP Mean : 83 mmHg KYLE RICHARDS LPN - 01/06/2016 12:57 CDT General Info Information Given By : Patient Preferred Communication Mode : Verbal Languages : Vietnamese Is Patient Female and 13-50 no hysterectomy : No KYLE RICHARDS LPN - 01/06/2016 12:57 CDT Subjective Pain Symptoms : No KYLE RICHARDS LPN - 01/06/2016 12:57 CDT Dependent Habits Smoking Status : Never smoker Tobacco 2A : No Tobacco Use/Currently Using : No Tobacco Use/Last 30 Days : No Tobacco Use/Last 12 months : No KYLE RICHARDS LPN - 01/06/2016 12:57 CDT [facility] Document Id: [id number] CDT!20 documented in this encounter Plan of Treatment Not on filedocumented as of this encounter Procedures Procedure Name Priority Date/Time Associated Diagnosis Comme nts POCT KETONE, URINE Routine 01/06/2016 1:28 PM Res ults for this CDT procedure are i n the results section. documented in this encounter Results Ketone, Urine, POCT (01/06/2016 1:28 PM CDT) [facility] gist Method Time Signature Color Yellow POWERCHART Appearance Clear POWERCHART Leukocytes, 2+ Moderate POWERCHART POCT, U Nitrites, Negative POWERCHART POCT, U Protein, POCT, Negative POWERCHART U pH, POCT, 7.5 5.0 - 9.0 POWERCHART Urine Blood, POCT, U Trace POWERCHART Ketone, POCT, Negative POWERCHART U Glucose, POCT, Negative POWERCHART U Specimen (Source) Anatomical Collection Method Collection Time Re ceived Time Location / / Volume Laterality 01/06/2016 1:28 PM CDT Regina Scott APRN, C.N.P., N.P., M.S.N., R.N. LAB POCT ORDERABLES-MANUAL Performing Organization Address City/State/ZIP Code Phon e Number POWERCHART documented in this encounter Visit Diagnoses Not on filedocumented in this encounter
--- OUTSIDE RECORDS SUMMARY | 2022-01-16 16:00 | XMS_ITS | Encounter Summary ---
:1935 Author Organization [facility] Address [address] [place] [address] Care Team Providers Name Role Phone Unavailable Primary Care Provider Unavailable Encounter Details Date Type Department Care Team Description 05/07/2013 Hospital Encounter HX NO MAPPING Social History [...]
--- OUTSIDE RECORDS SUMMARY | 2022-01-16 16:00 | XMS_ITS | Encounter Summary ---
:1935 Author Organization [facility] Address [address] [place] [address] Care Team Providers Name Role Phone Unavailable Primary Care Provider Unavailable Encounter Details Date Type Department Care Team Description 06/30/2014 Hospital Encounter HX NO MAPPING Social History [...]
--- OUTSIDE RECORDS SUMMARY | 2022-01-16 16:00 | XMS_ITS | Encounter Summary ---
:1935 Author Organization [facility] Address [address] [place] [address] Care Team Providers Name Role Phone Unavailable Primary Care Provider Unavailable Encounter Details Date Type Department Care Team Description 09/30/2013 Hospital Encounter HX RST GIH ESOPHAGUS Radha Villafana, DIGITAL PHOTOGRAPHER, C.N.P. [address] [place] [phone] (Wo rk) Social History Tobacco Use Types [...]
--- OUTSIDE RECORDS SUMMARY | 2022-01-16 16:00 | XMS_ITS | Encounter Summary ---
:1935 Author Organization [facility] Address [address] [place] [address] Care Team Providers Name Role Phone Unavailable Primary Care Provider Unavailable Encounter Details Date Type Department Care Team Description 05/25/2015 Hospital Encounter HX NO MAPPING Social History [...]
--- OUTSIDE RECORDS SUMMARY | 2022-01-16 16:00 | XMS_ITS | Encounter Summary ---
:1935 Author Organization [facility] Address [address] [place] [address] Care Team Providers Name Role Phone Unavailable Primary Care Provider Unavailable Encounter Details Date Type Department Care Team Description 03/23/2015 Hospital Encounter HX NO MAPPING Social History [...]
--- OUTSIDE RECORDS SUMMARY | 2022-01-16 16:00 | XMS_ITS | Encounter Summary ---
:1935 Author Organization [facility] Address [address] [place] [address] Care Team Providers Name Role Phone Unavailable Primary Care Provider Unavailable Encounter Details Date Type Department Care Team Description 08/31/2015 Hospital Encounter HX RST GIH ESOPHAGUS Radha Villafana, LYE PEEL OPERATOR, C.N.P. [address] [place] [phone] (Wo rk) Social History Tobacco Use Types [...] More than 4 times per year 09/25/2021 bahai services? Do you belong to any clubs [...]
--- OUTSIDE RECORDS SUMMARY | 2022-01-16 16:00 | XMS_ITS | Encounter Summary ---
:1935 Author Organization [facility] Address [address] [place] [address] Care Team Providers Name Role Phone Unavailable Primary Care Provider Unavailable Encounter Details Date Type Department Care Team Description 06/09/2016 Hospital Encounter HX RST GIH ESOPHAGUS Radha Villafana, UNIT CONTROL WORKER, C.N.P. [address] [place] [phone] (Wo rk) Social History Tobacco Use Types [...] 08/16/2017 0.5 mg tablet mouth at bedtime. ferrous sulfate 325 mg Take 1 tablet by 0 017 08/16/2017 (65 mg iron) tablet mouth daily. fluticasone (VERAMYST) Administer 1 spray 0 09/2905/27/2019 [...]
--- OUTSIDE RECORDS SUMMARY | 2022-01-16 16:00 | XMS_ITS | Encounter Summary ---
:1935 Author Organization [facility] Address [address] [place] [address] Care Team Providers Name Role Phone Unavailable Primary Care Provider Unavailable Encounter Details Date Type Department Care Team Description 2014 Hospital Encounter HX NO MAPPING Social History [...]
--- OUTSIDE RECORDS SUMMARY | 2022-01-16 16:00 | XMS_ITS | Encounter Summary ---
:1935 Author Organization [facility] Address [address] [place] [address] Care Team Providers Name Role Phone Unavailable Primary Care Provider Unavailable Encounter Details Date Type Department Care Team Description 07/21/2017 Abstract DATA ABSTRACTION Provider, Historical Social History Tobacco Use Types [...] More than 4 times per year 09/25/2021 yazdanism services? Do you belong to any clubs [...]
--- OUTSIDE RECORDS SUMMARY | 2022-01-16 16:00 | XMS_ITS | Encounter Summary ---
:1935 Author Organization [facility] Address [address] [place] [address] Care Team Providers Name Role Phone Unavailable Primary Care Provider Unavailable Reason for Visit Outpatient (Routine) - Closed Specialty Diagnoses / Referred By Referred To Cont act Procedures Contact Gastroenterology and Alyx Villafana [facility] Hepatology MARGOT Elizabeth, C.N.P. [address] [place] [address] Referral ID Status Reason Start Date Expiration Date Visits Requ ested Visits Authorized [id number] Closed 07/13/2017 01/09/2018 1 1 Encounter Details Date Type Department Care Team Description 08/16/2017 Office Visit Division of Alyx Villafana Vicente's E sonjaagus (Primary Dx); Gastroenterology in MARGOT Elizabeth, C.N .P. Dysplasia Esophagus [place], [place] [address] [place] [address] [place] [phone] Social History Tobacco Use Types Packs/Day Years [...] 09/25/2021 organizations such as sabianism groups, unions, [employer] or athletic groups, or school groups? How [...] Progress Notes Alyx Villafana, MARGOT, C.N.P. - 08/16/2017 3:00 PM CDT Date of visit: 08/16/2017 Supervising physician: Dr. 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 He has been seen at [facility] since April 2013. He underwent his initial endoscopy for the indication of anemia. 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 Over the past two years, he has been treated with endoscopic mucosal resection, radiofrequency ablation, and cryotherapy. He continuesd to havenodularity within his Vicente's segment. Mucosal resections were becoming more difficult due to underlying scar tissue. He started with 10 cm of Vicente's. His most recent endoscopy was in February of 2017. At that time, residual Vicente's C1-M2, showing minimal improvement from his last balloon cryotherapy treatment. Biopsies were taken, and again the Vicente's was ablated with balloon cryotherapy. Histopathology showed Vicente's, indefinite for dysplasia. His current anti-reflux regimen is Nexium 40 mg taken twice daily prior to morning and evening meals, 300 mg Zantac at bedtime, and Carafate after meals. He discontinued taking Carafate at bedtime because it was causing him insomnia. He has hadno hospitalizations or updates to his medical history since his last visit. Review of Systems: No fevers, chills, diarrhea, constipation, unintended weight loss, anorexia, nausea, vomiting, melena, hematochezia, dysphagia, odynophagia, or abdominal pain. Medical/Surgical history: 1. Hypothyroidism. 2. Obstructive sleep apnea. 3. Hyperlipidemia. 4. Appendectomy. 5. Cataract surgery. 6. Tonsillectomy. 7. History of anemia. 8. 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 10. Meningioma. 11. Parkinson's disease. Social history: Mr. Franz is retired. 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 He is a never smoker but was exposed to significant amount of secondhand smoke. He denies any alcohol use, and he denies anyprior history of recreational drug use. 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 Dr. Carranza did see some improvement from his last endoscopy in February after the balloon cryotherapy was used. He still has a 2 cm non circumferential area remaining which was biopsied and treated with balloon cryotherapyagain. I will notify him of histopathology results when those are available. He has been given a prescription for viscous lidocaine to be mixed with Maalox and Benadryl for postprocedure pain control. #3 Gastroesophageal reflux disease He should continue on Nexium 40 mg taken twice daily prior to morning and evening meals, Zantac at bedtime, and Carafate after meals. documented in this encounter Plan of Treatment Not on filedocumented as of this encounter Visit Diagnoses Diagnosis Vicente's Esophagus - Primary Dysplasia Esophagus documented in this encounter
--- OUTSIDE RECORDS SUMMARY | 2022-01-16 16:00 | XMS_ITS | Encounter Summary ---
:1935 Author Organization [facility] Address [address] [place] [address] Care Team Providers Name Role Phone Unavailable Primary Care Provider Unavailable Reason for Referral Outpatient (Routine) - Closed Specialty Diagnoses / Referred By Referred To Cont act Procedures Contact Gastroenterology and Alyx Villafana [facility] Hepatology MARGOT Elizabeth, C.N.P. 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 How often do you attend mormon or More than 4 times per year 09/25/2021 christian services? 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
--- OUTSIDE RECORDS SUMMARY | 2022-01-16 16:00 | XMS_ITS | Encounter Summary ---
:1935 Author Organization [facility] Address [address] [place] [address] Care Team Providers Name Role Phone Unavailable Primary Care Provider Unavailable Encounter Details Date Type Department Care Team Description 12/14/2016 Hospital Encounter HX NO MAPPING Social History [...] mouth daily as needed for allergies. pantoprazole (PROTONIX) Take 1 tablet by 0 [...] mouth 0 mg 24 hr capsule daily. vit Take 1 tablet by 0 [...] morning. 100 mcg tablet 137 mcg lidocaine (lidocaine) 2 15 mL every 4 (four) 0 08/16/2017 % mucosal solution hours as needed. Mix 1:1:1 with Maalox and Benadryl, swallow [...] 3-day drug holiday every month. sucralfate (CARAFATE) Take 10 mL by mouth 3 0 10/201602/09/2018 100 mg/mL suspension (three) times a day. Take 2 teaspoons (10 ML) three times daily after meals. venlafaxine (EFFEXOR) Take 1 tablet by 0 08/31/19 16 12/19/2017 150 mg 24 hr tablet mouth daily. documented as of this encounter Plan of Treatment Not on filedocumented as of this encounter Visit Diagnoses Not on filedocumented in this encounter
--- OUTSIDE RECORDS SUMMARY | 2022-01-16 16:00 | XMS_ITS | Encounter Summary ---
:1935 Author Organization [facility] Address [address] [place] [address] Care Team Providers Name Role Phone Unavailable Primary Care Provider Unavailable Encounter Details Date Type Department Care Team Description 03/22/2017 Hospital Encounter HX NO MAPPING Social History [...]
--- OUTSIDE RECORDS SUMMARY | 2022-01-16 16:00 | XMS_ITS | Encounter Summary ---
:1935 Author Organization [facility] Address [address] [place] [address] Care Team Providers Name Role Phone Unavailable Primary Care Provider Unavailable Encounter Details Date Type Department Care Team Description 03/22/2017 Telemedicine Department of Gastroenterology Social History Tobacco [...] 09/25/2021 organizations such as baptism groups, unions, fraternal or athletic groups, or [...] Date/Time Associated Comments Diagnosis GASTROENTEROLOGY IMAGE Routine 03/22/2017 3:55 Re sults for this EXAM PM PSYCHIATRY PHYSICIAN procedure are i n the results section. documented in this encounter Results GASTROENTEROLOGY IMAGE EXAM (03/22/2017 3:55 PM PSYCHIATRY PHYSICIAN) Specimen (Source) Anatomical Collection Method Collection Time Re ceived Time Location / / Volume Laterality 03/22/2017 3:52 PM PSYCHIATRY PHYSICIAN Narrative [facility] - 03/22/2017 4:41 PM PSYCHIATRY PHYSICIAN This order has been created and auto-finalized [...]
--- OUTSIDE RECORDS SUMMARY | 2022-01-16 16:00 | XMS_ITS | Encounter Summary ---
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 Procedures EGD (EsophagealGastroDuodenoscopy) C.N.P. 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 Procedures EGD (EsophagealGastroDuodenoscopy) C.N.P. [address] [place] [phone] Referral ID Status Reason Start Date Expiration Date Visits Requ ested Visits Authorized [id number] Closed 07/13/2017 01/09/2018 1 1 Encounter Details Date Type Department Care Team Description 08/16/2017 Hospital Division of Alyx Villafana APRN, CCareyN.P. [address] [place] [phone] Other Specified Diseases Of Esophagus; Encounter Gastroenterology in Karl Carlson APRN, [employer] WORK[employer] [address] [place] [phone] Gastroesophageal Reflux Disease Without Esophagitis; [place], [place] Barretts Esophagus Without D ysplasia [address] [place] [address] Social History Tobacco Use Types [...] Sign Reading Time Taken Comments Blood Pressure 172/158 08/16/2017 11:35 AM CDT Pulse 66 08/16/2017 11:43 AM CDT Temperature 36.5 ??C (97.7 ??F) 08/16/2017 11:07 AM CDT Respiratory Rate 14 08/16/2017 11:43 AM CDT Oxygen Saturation 99% 08/16/2017 11:43 AM CDT Inhaled Oxygen Concentration - - Weight 88.5 kg (195 lb) 08/16/2017 9:51 AM CDT Height 175.3 cm (5' 9) 08/16/2017 9:51 AM CDT Body Mass Index 28.8 08/16/2017 9:51 AM CDT documented in this encounter Medications at [...] D3/minerals (CALCIUM mouth daily. CARBONATE-VIT D3-MIN ORAL) fluticasone (VERAMYST) Administer 1 spray 0 09/2905/27/2019 27.5 mcg/actuation nasal into affected spray nostril(s) daily as needed for rhinitis. levothyroxine Take 1 tablet by 0 09/30/201305/28 (SYNTHROID, LEVOTHROID) mouth every morning. 100 mcg tablet 137 mcg lidocaine (lidocaine) 2 Apply 15 mL to the 100 mL 1 07/2603/14/2018 % mucosal solution mouth or throat every 4 [...] Progress Notes Alyx Villafana APRN, C.N.P. - 08/16/2017 11:59 PM CDT Mr. Franz was seen in the Division of Gastroenterology and hepatology on August 16, [address] Carranza. On this occasion upper endoscopy was performed. Findings included residual Vicente's C0-M2 which was biopsied and treated with balloon cryotherapy. Histopathology demonstrated Vicente's, indefinite for dysplasia.. 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 #2 GERD He should continue on Nexium 40 mg twice daily prior to morning and evening meals, Zantac at bedtime, and Carafate after meals. documented in this encounter Plan of Treatment Not on filedocumented as of this encounter Procedures Procedure Name Priority Date/Time Associated Diagnosis Comme nts SURGICAL PATHOLOGY Routine 08/16/2017 10:37 AM Re sults for this CDT procedure are i n the results section. UPPER GI ENDOSCOPY Routine 08/16/2017 9:18 AM Other Specified Results for this CDT Diseases Of procedure are i n Esophagus the results Gastroesophageal section. 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 Specimens are submitted en toto in cassette A1. Grossed by CAT[employer]. Participated in Ann Landis, 08/17/2017 [facility] the D.O.-Patholog 1:21 PM CDT LABORATORIES - Interpretation y Fellow [facility] Report Blanca Collins M.D., Ph.D. [phone] [facility] electronically I verify that I have examined all relevant slides/ma terials 1:21 PM CDT LABORATORIES - signed by for the specimen(s) and rendered or confirmed the diagnosi s. [facility] 08/17/2017 [facility] 1:21 PM CDT LABORATORIES - [facility] Interpretation FINAL DIAGNOSIS 08/17/2017 [facility] A. Esophagus, Lower third, endoscopic biopsy: ??Specialize d 1:21 PM CDT LABORATORIES - Vicente's mucosa. ??Epithelial atypia, indefinite for [facility]. SUSSEX Specimen (Source) Anatomical Collection Method Collection Time Re ceived Time Location / / Volume Laterality Biopsy 08/16/2017 10:37 (Esophagus) AM CDT Narrative This result has an attachment that is no t available. Darrell Carranza M.D. LAB SURG PATH ORDERABLES Performing Organization Address City/State/ZIP Code Phon e Number [facility] LABORATORIES - [address] [place], [place] [address] [facility] Upper GI Endoscopy (08/16/2017 9:18 AM CDT) Specimen (Source) Anatomical Collection Method Collection Time Re ceived Time Location / / Volume Laterality 08/16/2017 9:[address] [facility] 08/16/2017 10:56 AM CDT Post-op Diagnoses: ? - Residual Vicente's stage C0-M2 per [place] criteria. Partial response ? to prior balloon cryotherapy. Bio psied. Ablated with balloon cryotherapy ? using nitrous oxide. Seven treatm ents at 10 sec, 2 treatments at 5 sec. ? - 4 cm hiatal hernia. ? - Normal examined duodenum. [facility]ative [facility] 08/16/2017 10:56 AM CDT Reymundo 6 GI GI Patient Name: Nii Franz Date of : 1935 Age: 82 Gender: Male Procedure Date: 08/16/2017 Procedure: ? Upper GI endoscopy Providers: ? Darrell Carranza MD Referring Provider: ?Alyx Villafana Pre-op Diagnoses: ?Vicente's h igh grade dysplasia, Follow-up of ? pre vious ablation treatment of Vicente's esophagus, ? 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 eso phageal adenocarcinoma Recommendation: ? - The patient will be observed po st-procedure, until all discharge ? criteria are met. ? - Await pathology results. Findings: ? Esophagogastric landmarks were id entified: the Z-line was found at 36 ? cm, the gastroesophageal junction was found at 38 cm and the site of ? hiatal narrowing was found at 42 cm from the incisors. ? The esophagus and gastroesophagea l junction were examined with white ? light and narrow band imaging (NB I) from a forward view and retroflexed ? position. There were esophageal m ucosal changes classified as Vicente's ? stage C0-M2 per [place] criteria. These changes involved the mucosa at [...] in the ? lower third of the esophagus. One specimen bottle was sent to pathology. ? Estimated blood loss: none. The d ecision was made to ablate with nitrous ? oxide balloon cryotherapy. Endosc opic visualization identified an ? ablation site including the entir e visible Vicente's segment that was ? circumferential. The ablation cat heter was inserted through the working ? channel of the endoscope. The fir st ablation area was identified. After ? aligning the spray diffuser with the mucosal target, liquid nitrous ? oxide was applied for 10 seconds. Ablation was repeated in a likewise ? fashion at a total of seven sites . No complications were observed at the ? conclusion of therapy. The endosc ope was reinserted and the areas of the ? esophagus where Vicente's mucosa had been ablated were examined. Reddish ? changes indicative of ablated muc jose were present. ? A 4 cm hiatal hernia was [...] rformed the entire procedure. Darrell Carranza MD 08/16/2017 10:56:36 AM This report has been signed electronical ly. Number of Addenda: 0 Alyx Villafana APRN, C.N.P. 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
--- OUTSIDE RECORDS SUMMARY | 2022-01-16 16:00 | XMS_ITS | Encounter Summary ---
:1935 Author Organization [facility] Address [address] [place] [address] Care Team Providers Name Role Phone Unavailable Primary Care Provider Unavailable Encounter Details Date Type Department Care Team Description 09/29/2014 Hospital Encounter HX RST GIH ESOPHAGUS Radha Villafana, STRAND FORMING MACHINE OPERATOR, C.N.P. [address] [place] [phone] (Wo rk) Social History Tobacco Use Types [...] or relatives? How often do you attend yazidism or More than 4 times per year 09/25/2021 confucianism services? Do you belong to any clubs or Yes 09/25/2021 organizations such as yazidism groups, unions, fraternal or athletic groups, or [...]
--- OUTSIDE RECORDS SUMMARY | 2022-01-16 16:01 | XMS_ITS | Continuity of Care Document ---
:1935 Author Organization [facility] Care Team Providers Name Role Phone [facility] Unavailable Unavailable Medications Combined list of outpatient medications from Department of Defense and Veterans Affairs facilities. Medications provided include 1) outpatient medications from the last 15 months, and 2) patient-reported medications. Medication Details Route Status Patient Prescription Prescription Last Ordering Order Source Instructions Expires Number Dispense Provider Date Date CEPHALEXIN Active [id number] VOTEL, Pharmac (CEPHALEXIN 2 2021 Data MONOHYDRATE Transac ), 500MG, tion CAPSULE, Service ORAL, TEVA Facilit [place], 500 y ea. BOTTLE CEPHALEXIN Active [id number] MELAND, Pharmac (CEPHALEXIN 2 2021 Data MONOHYDRATE Transac ), 500MG, tion CAPSULE, Service ORAL, TEVA Facilit [place], 500 y ea. BOTTLE DICLOFENAC Active [id number] HOFFERT, 08/13 Pharmac SODIUM 2 2021 y Data (diclofenac Transac sodium), 1 tion %, GEL Service (GRAM), Facilit TOPICAL, y CIPLA [employer] 100 g TUBE ELIQUIS Active [id number] HOFFERT,K Pharmac (APIXABAN), 2 YL2021 y Data 5 MG, Transac TABLET, tion ORAL, BMS Service PRIMARYCARE Facilit , 60 ea. y BOTTLE ELIQUIS Active [id number] HOFFERT,K 10/19/ Pharmac (APIXABAN), 2 YL2021 y Data 5 MG, Transac TABLET, tion ORAL, BMS Service PRIMARYCARE Facilit , 60 ea. y BOTTLE ELIQUIS Active [id number] HOFFERT,K Pharmac (APIXABAN), 2 YLE 2021 y Data 5 MG, Transac TABLET, tion ORAL, BMS Service PRIMARYCARE Facilit , 60 ea. y BOTTLE ELIQUIS Active [id number] HOFFERT,K 07/29/ P harmac (APIXABAN), 2 YLE 2021 y Data 5 MG, Transac TABLET, tion ORAL, BMS Service PRIMARYCARE Facilit , 60 ea. y BOTTLE ENTRESTO Active [id number] ABOU 06/11/ Pha rmac (sacubitril 2 EZZEDDINE 2021 y Da ta /valsartan) ,LAVINIA Transac , tion 97MG-103MG, Service TABLET, Facilit ORAL, y NOVARTIS, 60 ea. BOTTLE ENTRESTO Active [id number] ABOU 09/05/ Pha rmac (sacubitril 2 EZZEDDINE 2021 y Da ta /valsartan) ,LAVINIA Transac , tion 97MG-103MG, Service TABLET, Facilit ORAL, y NOVARTIS, 60 ea. BOTTLE ENTRESTO Active [id number] ABOU 11/06/ Pha rmac (sacubitril 2 EZZEDDINE 2021 y Da ta /valsartan) ,LAVINIA Transac , tion 97MG-103MG, Service TABLET, Facilit ORAL, y NOVARTIS, 60 ea. BOTTLE FAMOTIDINE Active [id number] Toni RIVERA 05/25 Pharmac (famotidine 2 YLE 2021 y Data ), 40 MG, Transac TABLET, tion ORAL, Service [employer],, 100 y ea. BOTTLE FAMOTIDINE Active [id number] Toni RIVERA 07/29 / Pharmac (famotidine 2 YLE 2021 y Data ), 40 MG, Transac TABLET, tion ORAL, Service CELLTRION [employer],, 100 y ea. BOTTLE FLUZONE Active [id number] CLIFFORD, 11/15/ Pha rmac HIGH-DOSE 1 2020 y Data QUAD Transac tion (influenza Service virus Facilit vaccine y quadrival split 2020-(65 yr up)/PF), 240MCG/0.7, SYRINGE, INTRAMUSC, SANOFI-PAST EUR, .7 ml SYRINGE LEVOTHYROXI Active [id number] HOFFToni VACA / Pharmac NE SODIUM 2 YLE 2021 y Data (levothyrox Transac ine tion sodium), Service 100 MCG, Facilit TABLET, y ORAL, [employer], 1000 ea. BOTTLE LEVOTHYROXI Active [id number] MIGUEL,K / Pharmac NE SODIUM 2 YL2021 y Data (levothyrox Transac ine tion sodium), Service 100 MCG, Facilit TABLET, y ORAL, [employer], 1000 ea. BOTTLE LEVOTHYROXI Active [id number] MIGUEL,K / Pharmac NE SODIUM 2 YL2021 y Data (levothyrox Transac ine tion sodium), Service 100 MCG, Facilit TABLET, y ORAL, [employer], 1000 ea. BOTTLE LORATADINE Active [id number] MIGUEL,K 05/25 Pharmac (LORATADINE 2 2021 y Ajay a ), 10MG, Transac TABLET, tion ORAL, Service PERRIGO Facilit CO., 300 y ea. BOTTLE METOPROLOL Active [id number] MIGUEL,K 07/26 0/ Pharmac SUCCINATE 2 YL2021 y Data (metoprolol Transac succinate), tion 50 MG, TAB Service ER 24H, Facilit ORAL, [employer], y INC., 1000 ea. BOTTLE METOPROLOL Active [id number] MIGUEL,K 10/25 3/ Pharmac SUCCINATE 2 YL2021 y Data (metoprolol Transac succinate), tion 50 MG, TAB Service ER 24H, Facilit ORAL, [employer], y INC., 1000 ea. BOTTLE METOPROLOL Active [id number] MIGUEL,K 11/29 / Pharmac SUCCINATE 1 YL2020 y Data (metoprolol Transac succinate), tion 50 MG, TAB Service ER 24H, Facilit ORAL, [employer], y INC., 1000 ea. BOTTLE PANTOPRAZOL Active [id number] MIGUEL,K / Pharmac E SODIUM 2 YLEHOFFE 2021 y Data (pantoprazo Transac le sodium), tion 40 MG, Service TABLET DR, Facilit ORAL, [employer], y INC., 1000 ea. BOTTLE PFIZER Active [id number] CLIFFORD, 07/01/ Phar mac COVID (12Y 2 2021 y Data UP) Transac VAC(EUA) tion (COVID-19 Service vac Facilit mRNA,edwige(P y fizer)/PF), 30 MCG/0.3, VIAL, INTRAMUSC, PFIZER MANUFACT, 1.8 ml VIAL PFIZER Active [id number] CLIFFORD, 12/24/ Phar mac COVID-19 1 2020 y Data VACCINE Transac (EUA) tion (COVID-19 Service vaccine, Facilit mRNA, y [id number], LNP-S (Pfizer)/PF ), 30 MCG/0.3, VIAL, INTRAMUSC, P[employer]ER MANUFACT, 1.8 ml VIAL SIMVASTATIN Active [id number] [facility] / Pharmac (simvastati 2 YL2021 y Data n), 20 MG, Transac TABLET, tion ORAL, Service PURACAP Facilit LABORAT, y 1000 ea. BOTTLE SIMVASTATIN Active [id number] [facility] Pharmac (simvastati 2 YL2021 y Data n), 20 MG, Transac TABLET, tion ORAL, Service PURACAP Facilit LABORAT, y 1000 ea. BOTTLE SIMVASTATIN Active [id number] [facility] Pharmac (simvastati 2 2021 y Data n), 20 MG, Transac TABLET, tion ORAL, Service PURACAP Facilit LABORAT, y 1000 ea. BOTTLE SUCRALFATE Active [id number] [facility] 10/25 5 Pharmac (sucralfate 2 2021 y Data ), 1 G/10 Transac ML, ORAL tion SUSP, ORAL, Service PAR PHARM., Facilit 420 ml y BOTTLE TAMSULOSIN Active [id number] [facility] 07/26 0/ Pharmac HCL 2 2021 y Data (tamsulosin Transac HCl), 0.4 tion MG, Service CAPSULE, Facilit ORAL, MAJOR y PHARMACEU, 90 ea. BOTTLE TAMSULOSIN Active [id number] [facility] 07/27 1/ Pharmac HCL 2 YL2021 y Data (tamsulosin Transac HCl), 0.4 tion MG, Service CAPSULE, Facilit ORAL, MAJOR y PHARMACEU, 90 ea. BOTTLE VENLAFAXINE Active [id number] Toni RIVERA 03/ 13/ Pharmac HCL ER 2 YLE 2021 y Data (VENLAFAXIN Transac E HCL), 150 tion MG, CAP ER Service 24H, ORAL, Facilit [employer]KARE, 90 y ea. BOTTLE Immunizations Combined list of available immunizations from the Department of Defense and Veterans Affairs facilities. Immunization Series Date Administered Site Reaction Lot CVX Drug St atus Comments Source Given By Number Code Service Clerk COVID-19, 06/26/ CLIFFORD, Samfind Not COVID-1 9, DoD mRNA, LNP-S, 2021 Manufacturing Given mRNA, PF, 30 [place] LNP-S, mcg/0.3 mL (PFR) PF, 30 dose, mcg/0.3 edwige-sucrose mL dose , edwige-sucr ose COVID-19, 12/22/ DARRIN Samfind Not COVID-1 9, DoD mRNA, LNP-S, 2020 Manufacturing Given mRNA, PF, 30 [place] LNP-S, mcg/0.3 mL (PFR) PF, 30 dose mcg/0.3 mL dose influenza, 11/09/ CLIFFORD, () Not influen za DoD high-dose, 2020 Given , quadrivalent high-do se , quadrival ent influenza, CLIFFORD, () Not influen za DoD high-dose, 2019 Given , quadrivalent high-do se , quadrival ent pneumococcal 09/19/ ANDRY LINDA () Not pneumococ DoD polysaccharid 2018 EMMA Given milvia e PPV23 polysacch aride PPV23 Influenza, 11/17/ [facility], () Not Infl uenza DoD high dose 2015 Given , high seasonal dose seasonal Social History Combined list of available smoking, tobacco, and other social history from Department of Defense andVeterans Affairs facilities. Social History Type Response Date Comment Source This section is an empty social history section. DoD
--- OUTSIDE RECORDS SUMMARY | 2022-01-16 16:05 | XMS_ITS | Encounter Summary ---
:[address] [facility] Address [address] [place] [id number] Care Team Providers Name Role Phone Unavailable Primary Care Provider Unavailable Encounter Details Date Type Department Care Team Description 04/12/2018 Hospital Encounter Outpatient Procedure Bill Francisco [facility] in [place], Yareli Doty Uncertain Behavior [place] [address] [place] [address] [address] [place] [id number] [phone] Social History Tobacco Use Types Packs/Day Years [...] Sign Reading Time Taken Comments Blood Pressure 114/54 04/12/2018 11:15 AM SECURITY COMPLIANCE ENGINEER Pulse 67 04/12/2018 11:30 AM SECURITY COMPLIANCE ENGINEER Temperature 36.3 ??C (97.3 ??F) 04/12/2018 9:20 AM SECURITY COMPLIANCE ENGINEER Respiratory Rate 11 04/12/2018 11:30 AM SECURITY COMPLIANCE ENGINEER Oxygen Saturation 96% 04/12/2018 11:30 AM SECURITY COMPLIANCE ENGINEER Inhaled Oxygen Concentration - - Weight - - Height - - Body Mass Index - - documented in this encounter Discharge Instructions AttachmentsThe following attachments cannot be sent through Care Everywhere. Cystoscopy/Bladder Biopsy/Transurethral Resection Bladder Tumor (Yoruba) Indwelling Catheter Care With Drainage Bag Instructions (Yoruba)documented in this encounter Medications at Time of [...] - Primary * Robin Maddox M.D. - Solution Maker Anesthesia Type: General Pre-Operative Diagnosis: Tumor Bladder, [...] brought back to [place] [facility] in the [facility] and placed under generalanesthesia. [...] then proceeded to sequentially dilate to 30 Amharic and placed our continuous flow resectoscope. We thentook multiple swipes of the right bladder wall encompassing the entire area mentioned above. This did not involve the ureteral orifice. Following this we used cautery to achieve good hemostasis. Patient's bladder was emptied, a bimanual exam was performed is negative for clinical T3 or T4 disease and an 18 Amharic Dorsey catheter was placed. This was irrigated [...] implants in log * Robin Maddox M.D. RITY COMPLIANCE ENGINEER documented in this encounter Plan of Treatment Not on filedocumented as of this encounter Procedures Procedure Name Priority Date/Time Associated Comments Diagnosis SURGICAL PATHOLOGY Routine 04/12/2018 8:36 Tumor Bladder Resul ts for this AM SECURITY COMPLIANCE ENGINEER Uncertain Behavior procedure are in the results section. CATHETERIZATION BLADDER 04/12/2018 7:37 Tumor Bladder AM SECURITY COMPLIANCE ENGINEER Uncertain Behavior Special Needs Listing: Tyler service. CYSTOSCOPY WITH TRANSURETHRAL 04/12/2018 7:37 AM SECURITY COMPLIANCE ENGINEER T umor Bladder Uncertain RESECTION LESION BLADDER Behavior Special Needs Listing: Tyler service. documented in this encounter Results Surgical Pathology (04/12/2018 8:36 AM SECURITY COMPLIANCE ENGINEER) Component Value Ref Test Analysis Performed At [facility] gist Range Method Time Signature Gross Description Received in formalin labeled with the patient's n martin, 04/13/2018 [facility] medical record number, and bladder, right bladder wall 11:02 AM LABORATORIES - tumor are multiple lawrence-pink, rubbery, cauterized tissue [facility] fragments 2.7 x 2.0 x 0.5 cm in aggregate. Specimens are CAMPUS submitted en toto in cassettes A1 and A2. ??Grossed by GAURANG. Participated in Gaudencio Hernandez 04/13/2018 [facility] rico Leonard, 11:02 AM LABORATORIES - Interpretation M.D.-Pathology [facility] Report Paulie Hernandez M.D., Ph.D. 9 [facility] electronically I verify that I have examined all relevant slides/ma terials 11:02 AM LABORATORIES - signed by for the specimen(s) and rendered or confirmed the diagnosi s. [facility] 04/13/2018 [facility] 11:02 AM LABORATORIES - [facility] Interpretation FINAL DIAGNOSIS 04/13/2018 [facility]. 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 ??Muscularis propria is present and not involved. CAMPUS Specimen (Source) Anatomical Collection Method Collection Time Re ceived Time Location / / Volume Laterality Tissue (Bladder) 04/12/2018 8:36 AM SECURITY COMPLIANCE ENGINEER Narrative This result has an attachment that is no t available. Virgil Francisco M.D. LAB SURG PATH ORDERABLES Performing Organization Address City/State/ZIP Code Phon e Number [facility] LABORATORIES - [address] [place], [place] [address] [facility] documented in this encounter Visit Diagnoses Diagnosis Tumor Bladder Uncertain Behavior documented in this encounter Admitting Diagnoses Diagnosis Tumor Bladder Uncertain Behavior documented in this encounter Administered Medications Inactive Administered Medications - up to 3 most recent administrations Medication Order MAR Action Action Date Dose Rate Site acetaminophen tablet 1,000 mg Given 04/12/2018 7:49 AM SECURITY COMPLIANCE ENGINEER 1,000 mg (TYLENOL) 1,000 mg, oral, Once, On Loly 04/12/18 at 0800, For 1 dose, Pre-Op lactated ringers New Bag 04/12/2018 8:42 AM SECURITY COMPLIANCE ENGINEER 20 mL/hr, intravenous, Continuous, Starting on Loly 04/12/18 at 0800 New Bag 04/12/2018 7:48 AM SECURITY COMPLIANCE ENGINEER 20 mL/hr 20 mL/hr lidocaine HCl 2 % topical jelly 1 Given 04/12/2018 10:14 AM SECURITY COMPLIANCE ENGINEER 1 application application (UROJET) 1 application, topical, Once, On Loly 04/12/18 at 1015, For 1 dose oxybutynin tablet 5 mg (DITROPAN) Given 04/12/2018 9:25 AM SECURITY COMPLIANCE ENGINEER 5 mg 5 mg, oral, Once as needed, If patient is not required to void prior to dismissal, Starting on Loly 04/12/18 at 0923, For 1 dose, PACU & Post-Op phenazopyridine tablet 200 mg (PYRIDIUM) Given 04/12/2018 7:00 AM SECURITY COMPLIANCE ENGINEER 200 mg 200 mg, oral, Once, On [...] Recently Administered Medications Times are shown in SECURITY COMPLIANCE ENGINEER. Scheduled Medication Order 04/10/2018 04/11/2018 04/12/2018 acetaminophen tablet 1,000 mg (TYLENOL) (COMPLETED) 0749 (Given - Provider: Soraida Deluna R.N.) 1,000 mg, oral, Once, Loly 04/12/18 at 0800, For 1 dose, Pre-Op ceFAZolin injection 2 g (ANCEF) (COMPLETED) 0820 (Given - Provider: Zandra Velasco APRN, [facility]) 2 g, intravenous, Once, Loly 04/12/18 at [...] D) 1014 (Given - Provider: Soraida Deluna RCareyN.) 1 application, topical, Once, Loly 04/12/18 at 1015, For 1 dose phenazopyridine tablet 200 mg (PYRIDIUM) (COMPLETED) 0700 (Given - Provider: Soraida Deluna RCareyN.) 200 mg, oral, Once, Loly 04/12/18 at [...] Volume Adjustment - Provider: Zandra Velasco APRN, CRNA)1226 (Stopped - Provider: Soraida Deluna R.N.) 20 mL/hr, intravenous, at 20 mL/hr, Continuous, Starting Loly 03/27 10/12 at 0800 PRN Medication Order 04/10/2018 04/11/2018 04/12/2018 belladonna alkaloids-opium 16.2-60 mg suppository (B&O SUPPRETTS ) (CANCELED) 900 (Given - Provider: Robin Maddox M.D.) As [...] promethazine). oxybutynin tablet 5 mg (DITROPAN) (COMPLETED) 09 (Given - Provider: Soraida Deluna R.N.) 5 [...]
--- NOTE | 2022-01-16 16:16 | ED_ITS ---
HPI - General Adult General Chief complaint: Extremity Pain/Injury, Lower Stated complaint: Right leg pain Time Seen by Provider: 01/16/22 15:25 Source: patient and family Limitations: no limitations History of Present Illness HPI narrative: 86-year-old male, with a complex medical history, coming in today concerned about right lower extremity pain. He states that he was standing around yesterday and he felt like he was having her look worse in the right calf. The pain progressively got worse to the point where he was unable to walk on it. He denies any increased swelling. He denies knee or ankle pain on that side. Pain is located in the os the back of the lower leg in the calf area. Nothing seems to make it better or worse. He did take some Tylenol yesterday which did not do too much. He denies any shortness of breath, cough, fever, chills. He denies any changes in his appetite. He denies pain in any other extremity. The patient is on Eliquis 2.5 mg p.o. b.i.d.. 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 Related Data Home Medications Medication Instructions Recorded Confirmed apixaban 5 mg tablet (Eliquis) 5 mg PO Q12H 01/16/22 01/16/22 diclofenac sodium 1 % topical gel 2 g topical Q6H 01/16/22 01/16/22 famotidine 40 mg tablet 40 mg PO DAILY 01/16/22 01/16/22 levothyroxine 100 mcg tablet 100 mcg PO DAILY 01/16/22 01/16/22 loratadine 10 mg tablet 10 mg PO Q24H PRN 01/16/22 01/16/22 metoprolol succinate 50 mg 50 mg PO Q12H 01/16/22 01/16/22 tablet,extended release 24 hr pantoprazole 40 mg tablet,delayed 40 mg PO Q12H 01/16/22 01/16/22 release simvastatin 20 mg tablet 20 mg PO DAILY 01/16/22 01/16/22 sucralfate 100 mg/mL oral 10 ml PO Q6H 01/16/22 01/16/22 suspension tamsulosin 0.4 mg capsule 0.4 mg PO Q24H 01/16/22 01/16/22 torsemide 10 mg tablet 10 mg PO PRN 01/16/22 venlafaxine 150 mg mg PO 01/16/22 capsule,extended release 24 hr Review of Systems Status of ROS: Reports: 10 or more systems reviewed and unremarkable except as noted in History and below [facility] Social History Smoking Status: Never smoker Do you use any of these nicotine containing products: None Second hand tobacco smoke exposure: No How often do you have a drink containing alcohol: never How often do you have six or more drinks on one occasion: Never AUDIT-C Alcohol total score: 0 Non-prescribed substance use: denies use service: No Exam Narrative: Exam Narrative: Well-nourished well-developed patient in no acute distress. Alert and oriented. Answers questions appropriately. Mood and affect are appropriate. Patient speaks in full sentences without needing to catch his breath. He does not appear ill or toxic. HEENT: Normocephalic atraumatic. Pupils are equally round reactive to light. Extraocular muscles are intact. Conjunctivae are moist without any icterus noted. Moist mucous membranes. Neck is supple. Cardiovascular: Heart is regular rate and rhythm S1 and S2 are present without any murmurs. Lungs: Clear to auscultation bilaterally no wheezes rhonchi or rales are appreciated. Patient takes deep breaths without any discomfort. Abdomen: Soft and nontender nondistended with normal bowel sounds. Extremities: Bilateral lower extremities are without pitting edema. Calves have normal circumference without any swelling. He has mild tenderness to palpation of the calf on the right side. There are no skin rashes. He does have some varicose veins present which do not appear to be firm or tender to palpation. He has good DP and PT pulses bilaterally. He has no tenderness to manipulation at the knee or ankle. Skin: Well perfused without any obvious rashes. Const: Vital Signs, click to edit/add: Vital Signs - 24 hr 01/16/22 15:34 Temperature 98.3 F Pulse Rate [Left P ulse Oximeter] 87 Respiratory Rate 16 Blood Pressure [Ri ght Upper Arm] 127/57 L Pulse Oximetry 96 Oxygen Delivery Me thod Room Air Course Course Hospital Course: Ultrasound of the right lower extremity did not show any DVT. We then proceeded with an x-ray of lower extremity to rule out any bony abnormalities, the x-ray was normal as well. Discussed findings with patient and his . Vital Signs Vital signs: Initial Vital Signs Temperature 98.3 F 01/16/22 15:34 Temperature Source Temporal Artery Scan 01/16/22 15:34 Pulse Rate 87 01/16/22 15:34 Pulse Rhythm 01/16/22 15:34 Pulse Strength 3+ Normal 01/16/22 15:34 Respiratory Rate 16 01/16/22 15:34 Blood Pressure 127/57 L 01/16/22 15:34 Blood Pressure Mean 80 01/16/22 15:34 Blood Pressure Position Sitting 01/16/22 15:34 Pulse Oximetry 96 01/16/22 15:34 Oxygen Delivery Method 01/16/22 15:34 Vital Signs Temperature 98.3 F 01/16/22 15:34 Pulse Rate 87 01/16/22 15:34 Respiratory Rate 16 01/16/22 15:34 Blood Pressure 127/57 L 01/16/22 15:34 Pulse Oximetry 96 01/16/22 15:34 Oxygen Delivery Method 01/16/22 15:34 Temperature 98.3 F 01/16/22 15:34 Pulse Rate 87 01/16/22 15:34 Respiratory Rate 16 01/16/22 15:34 Blood Pressure 127/57 L 01/16/22 15:34 Pulse Oximetry 96 01/16/22 15:34 Oxygen Delivery Method 01/16/22 15:34 Medical Decision Making MDM Narrative Medical decision making narrative: 86-year-old male with right lower extremity pain, unclear etiology. Patient will be sent home with some hydrocodone today to take as needed we discussed potential side effects of this medication including constipation drowsiness and increased risk of fall. Follow-up with primary care as needed, return if symptoms are getting worse. Medical Records Medical records reviewed: Yes I reviewed the patient's medical records Imaging Data Venous US: Attestation: I have reviewed the pertinent imaging results. Radiologist's impression: TECHNIQUE: Ultrasound venous duplex lower right extremity. Compression venous exam was performed using galvan-scale, color Doppler, and spectral Doppler imaging. COMPARISON: None. FINDINGS: Sonographic imaging demonstrates the right common femoral, deep femoral, superficial femoral, popliteal, posterior tibial and greater saphenous and the contralateral left common femoral veins to be fully compressible with normal color Doppler blood flow. IMPRESSION: No DVT identified in the right lower extremity. Tib-fib x-ray: Attestation: I have reviewed the pertinent imaging results. My impression: No acute findings Radiologist's impression: FINDINGS: Bones: Alignment is normal. No fractures or bone lesions. Joint spaces: Unremarkable. Soft tissues: Unremarkable. Note that the CRTIS entry indicates a left tib-fib series, and the technologist marker indicates right. I verified with the performing technologist, by telephone, 01/16/2022, 1656 hours, this is a right tibia/fibula series. IMPRESSION: No acute bone abnormality. Discharge Plan Discharge Clinical Impression: Leg pain Patient Disposition: Home, Self-Care Condition: Stable Additional Instructions: Okay to use heat or ice to the area as needed. Okay to take pain medication as needed/as prescribed. Potential side effects of this medication include drowsiness, increased risk of fall and constipation. Medication prescription sent to [facility]. Follow-up with primary care provider this coming week if symptoms are not improving. Prescriptions: No Action metoprolol succinate 50 mg tablet extended release 24 hr 50 mg PO Q12H sucralfate 100 mg/mL suspension 10 ml PO Q6H famotidine 40 mg tablet 40 mg PO DAILY venlafaxine 150 mg capsule,extended release 24hr PO torsemide 10 mg tablet 10 mg PO PRN levothyroxine 100 mcg tablet 100 mcg PO DAILY tamsulosin 0.4 mg capsule 0.4 mg PO Q24H pantoprazole 40 mg tablet,delayed release (DR/EC) 40 mg PO Q12H simvastatin 20 mg tablet 20 mg PO DAILY loratadine 10 mg tablet 10 mg PO Q24H PRN diclofenac sodium 1 % gel 2 g topical Q6H Label Comments: APPLY 2 GRAMS TOPICALLY TO THE AFFECTED AREA FOUR TIMES DAILY Eliquis 5 mg tablet 5 mg PO Q12H Follow Up/Referrals: Valentino Thomas MD [Primary Care Provider] - Stand Alone Forms: [facility] Info Instructions
--- NOTE | 2022-01-16 16:16 | CRLHL7_ITS ---
For Patients: As a result of the Century Cures Act, medical imaging exams and procedure reports are released immediately into your electronic medical record. You may view this report before your referring provider. If you have questions, please contact your health care provider. INDICATION: LEG PAIN INDICATION: Leg pain. TECHNIQUE: Right tibia/fibula, two views. COMPARISON: None FINDINGS: Bones: Alignment is normal. No fractures or bone lesions. Joint spaces: Unremarkable. Soft tissues: Unremarkable. Note that the CRTIS entry indicates a left tib-fib series, and the technologist marker indicates right. I verified with the performing technologist, by telephone, 01/16/2022, 1656 hours, this is a right tibia/fibula series. IMPRESSION: No acute bone abnormality. Dictated by Augusto Mendez MD @ 01/16/2022 4:59:47 PM Dictated by: Augusto Mendez MD @ 01/16/2022 16:59:56 (Electronically Signed)
== END 2022-01-16 17:25 | disposition home or self-care (01) ==
PROVIDERS: Emergency Provider Family Medicine; PCP Surgery
DX: M79.661 Pain in right lower leg (principal)
CPT/HCPCS: 73590; 93971; 99283; 99284

== ENCOUNTER 2022-05-20 21:57 | Outpatient (CLI) | payer MEDICARE, OTHER, SELFPAY | END 2022-05-20 21:58 | disposition home or self-care (01) | LOC: AMB 06-01 08:49 | PROVIDERS: PCP Surgery; Visit Provider Internal Medicine | DX: R51.9 Headache, unspecified (principal) ==

== ENCOUNTER 2023-01-04 05:37 | Outpatient (CLI) | payer MEDICARE, OTHER, SELFPAY | END 2023-01-04 05:38 | disposition home or self-care (01) | LOC: AMB 01-06 09:53 | PROVIDERS: PCP Surgery; Visit Provider Family Medicine | DX: M25.552 Pain in left hip (principal) | CPT/HCPCS: A0425; A0427 ==

== ENCOUNTER 2023-01-04 06:03 | Emergency (ER) | payer MEDICARE, OTHER, SELFPAY ==
--- NOTE | 2023-01-04 06:12 | ED.GENADULT ---
HPI - General Adult General Time Seen by Provider: 06:12 Date Seen: 01/04/23 Chief complaint: Hip Injury/Pain Stated complaint: hip pain Time Seen by Provider: 01/04/23 06:08 Source: patient, EMS, RN notes reviewed and old records reviewed Mode of arrival: EMS Limitations: no limitations History of Present Illness HPI narrative: 87-year-old male who comes in today with left leg pain. Started last night, pain in the posterior left leg. No known injury. Pain is not too bad at rest but when he moves or leg is moved he has more severe pain. Has not taken anything for symptoms. Related Data Home Medications Medication Instructions Recorded Confirmed apixaban 5 mg tablet (Eliquis) 5 mg PO Q12H 01/16/22 01/04/23 diclofenac sodium 1 % topical gel 2 g topical Q6H 01/16/22 01/04/23 famotidine 40 mg tablet 40 mg PO DAILY 01/16/22 01/04/23 loratadine 10 mg tablet 10 mg PO Q24H PRN 01/16/22 01/04/23 metoprolol succinate 50 mg 50 mg PO Q12H 01/16/22 01/04/23 tablet,extended release 24 hr pantoprazole 40 mg tablet,delayed 40 mg PO Q12H 01/16/22 01/04/23 release simvastatin 20 mg tablet 20 mg PO DAILY 01/16/22 01/04/23 sucralfate 100 mg/mL oral 10 ml PO Q6H 01/16/22 01/04/23 suspension tamsulosin 0.4 mg capsule 0.4 mg PO Q24H 01/16/22 01/04/23 torsemide 10 mg tablet 10 mg PO BID PRN 01/16/22 01/04/23 venlafaxine 150 mg 150 mg PO DAILY 01/16/22 01/04/23 capsule,extended release 24 hr levothyroxine 112 mcg tablet 112 mcg PO DAILY 01/04/23 01/04/23 sacubitril 97 mg-valsartan 103 mg 1 tab PO BID 01/04/23 01/04/23 tablet (Entresto) Allergies Allergy/AdvReac Type Severity Reaction Status Date / Time No Known Drug Allergies Allergy Verified 01/04/23 07:10 PFSH PFS Social History Smoking Status: Never smoker Do you use any of these nicotine containing products: None Second hand tobacco smoke exposure: No How often do you have a drink containing alcohol: never How often do you have six or more drinks on one occasion: Never AUDIT-C Alcohol total score: 0 Non-prescribed substance use: denies use service: Yes Exam Narrative: Exam Narrative: General: Well-developed and well-nourished, no acute distress Head: Atraumatic and normocephalic Eyes: Pupils are equal reactive, extraocular motions intact, conjunctiva clear ENT: External nose and ears are normal, posterior pharynx without erythema or exudate Neck: No midline cervical tenderness, full spontaneous range of motion the neck, trachea midline, no adenopathy Heart: Irregular Lungs: Clear to auscultation bilaterally without wheezes or crackles Abdomen: Soft, nontender, nondistended with active bowel sounds Musculoskeletal: Mild left buttock and left posterior lateral thigh tenderness. Pain in the posterior thigh with straight leg raise. Bilateral lower extremity edema which patient says is chronic and unchanged from usual, symmetric. Neurologic: Awake, alert, and oriented x3, no gross focal neurologic deficits, cranial nerves intact as tested Psych: Mood and affect are appropriate Skin: No rashes Const: Vital Signs, click to edit/add: Vital Signs - 24 hr 01/04/23 06:15 01/04/23 07:31 Temperature 98.0 F Pulse Rate [Right Pulse Oximeter] 85 104 H Respiratory Rate 18 20 Blood Pressure [Ri ght Upper Arm] 106/79 112/66 Pulse Oximetry 99 95 Oxygen Delivery Me thod Room Air Room Air Course Course ED Course: Patient seen examined, prior records reviewed. Patient presents today with left leg pain this started last night, no history of trauma. On exam, mild left posterior lateral upper leg pain and left buttock pain. Symptoms seem most consistent with musculoskeletal pain, patient is on blood thinners and so intramuscular hematoma possible as well. Consider lumbar radiculopathy but no back pain, no numbness or tingling in the leg. DVT is unlikely as patient is adequately anticoagulated. Toradol and Flexeril or ordered along with x-ray to evaluate for insufficiency fracture. Reevaluation(s) Time of Reevaluation #1: 07:37 Reevaluation #1: X-ray of the pelvis and femur independently interpreted by me negative for acute findings. Patient recheck, still complaining with pain with movement in the left leg but significantly better range of motion now than prior. Pain seems to be worse with active lowering of the leg the bed. He is able to bend the knee against resistance and extend the knee against resistance with no pain, is able to straight leg raise with some pain but when the hip is passively flexed and the legs lower back to have the bed, if he is actively trying to lower than he has pain. Ultrasound is ordered. Time of Reevaluation #2: 07:57 Reevaluation #2: Sign out to Dr. Quintero. Vital Signs Vital signs: Initial Vital Signs Temperature 98.0 F 01/04/23 06:15 Temperature Source Temporal Artery Scan 01/04/23 06:15 Pulse Rate 85 01/04/23 06:15 Respiratory Rate 18 01/04/23 06:15 Blood Pressure 106/79 01/04/23 06:15 Blood Pressure Mean 88 01/04/23 06:15 Blood Pressure Position Sitting 01/04/23 06:15 Pulse Oximetry 99 01/04/23 06:15 Oxygen Delivery Method Room Air 01/04/23 06:15 Vital Signs Temperature 98.0 F 01/04/23 06:15 Pulse Rate 85 01/04/23 06:15 Respiratory Rate 18 01/04/23 06:15 Blood Pressure 106/79 01/04/23 06:15 Pulse Oximetry 99 01/04/23 06:15 Oxygen Delivery Method Room Air 01/04/23 06:15 Temperature 98.0 F 01/04/23 06:15 Pulse Rate 104 H 01/04/23 07:31 Respiratory Rate 20 01/04/23 07:31 Blood Pressure 112/66 01/04/23 07:31 Pulse Oximetry 95 01/04/23 07:31 Oxygen Delivery Method Room Air 01/04/23 07:31 Discharge Plan Discharge Prescriptions: No Action metoprolol succinate 50 mg tablet extended release 24 hr 50 mg PO Q12H sucralfate 100 mg/mL suspension 10 ml PO Q6H famotidine 40 mg tablet 40 mg PO DAILY venlafaxine 150 mg capsule,extended release 24hr 150 mg PO DAILY torsemide 10 mg tablet 10 mg PO BID PRN tamsulosin 0.4 mg capsule 0.4 mg PO Q24H pantoprazole 40 mg tablet,delayed release (DR/EC) 40 mg PO Q12H simvastatin 20 mg tablet 20 mg PO DAILY loratadine 10 mg tablet 10 mg PO Q24H PRN diclofenac sodium 1 % gel 2 g topical Q6H Patient Comments: APPLY 2 GRAMS TOPICALLY TO THE AFFECTED AREA FOUR TIMES DAILY Eliquis 5 mg tablet 5 mg PO Q12H levothyroxine 112 mcg tablet 112 mcg PO DAILY Entresto 97-103 mg tablet 1 tab PO BID Follow Up/Referrals: Valentino Thomas MD [Primary Care Provider] -
[2023-01-04 06:15] VITALS: BP 106/79; PULSE 85; RESP 18; TEMP 36.7; O2SAT 99; BMI 25.8
--- NOTE | 2023-01-04 06:15 | CRLHL7_ITS ---
For Patients: As a result of the Century Cures Act, medical imaging exams and procedure reports are released immediately into your electronic medical record. You may view this report before your referring provider. If you have questions, please contact your health care provider. INDICATION: Atraumatic pain. COMPARISON: None available. TECHNIQUE: Two views of the left femur. FINDINGS: Alignment is anatomic. No acute fractures identified. No findings of femoral head osteonecrosis. No large knee joint effusion. Left knee medial compartment joint space narrowing and small marginal osteophytes. The bones are diffusely demineralized. IMPRESSION: No displaced fracture. Dictated by Mary Quintero MD @ 01/04/2023 7:59:29 AM (Electronically Signed)
--- NOTE | 2023-01-04 06:15 | CRLHL7_ITS ---
For Patients: As a result of the Century Cures Act, medical imaging exams and procedure reports are released immediately into your electronic medical record. You may view this report before your referring provider. If you have questions, please contact your health care provider. INDICATION: Atraumatic pain. COMPARISON: None available. TECHNIQUE: Single view of the pelvis. FINDINGS: Alignment is anatomic and joint spaces are maintained. No displaced fracture is seen. No widening of the sacroiliac joints or pubic symphysis. No findings to suggest femoral head osteonecrosis. Mild degenerative disc disease and facet arthropathy in the lower lumbar spine. The bones are diffusely demineralized. IMPRESSION: No displaced fracture. Dictated by Mary Quintero MD @ 01/04/2023 7:58:03 AM (Electronically Signed)
[2023-01-04] MEDS: CYCLOBENZAPRINE HCL 10 MG TABLET PO (07:16)
[2023-01-04] MEDS: KETOROLAC 30 MG/ML inj 15 MG IM (07:17)
[2023-01-04 07:31] VITALS: BP 112/66; PULSE 104; RESP 20; O2SAT 95
--- NOTE | 2023-01-04 07:35 | ED.NURSE ---
dr cardoza in to see and examine further.repeats self and some short term memory loss.
--- NOTE | 2023-01-04 07:44 | CRLHL7_ITS ---
For Patients: As a result of the Century Cures Act, medical imaging exams and procedure reports are released immediately into your electronic medical record. You may view this report before your referring provider. If you have questions, please contact your health care provider. INDICATION: Leg pain and swelling. TECHNIQUE: Ultrasound venous duplex lower left extremity. Compression venous exam was performed using galvan-scale, color Doppler, and spectral Doppler analysis. COMPARISON: Same day femur radiographs. FINDINGS: Deep veins: Sonographic imaging demonstrates the left common femoral, deep femoral, superficial femoral, popliteal, posterior tibial, peroneal and the contralateral right common femoral veins to be fully compressible with normal color Doppler blood flow. Superficial veins: Greater saphenous vein is fully compressible. No popliteal cyst. Mild nonspecific subcutaneous edema involving the visualized portions of the left leg. IMPRESSION: No sign of left lower extremity deep venous thrombosis. Dictated by Mary Quintero MD @ 01/04/2023 8:51:50 AM (Electronically Signed)
--- NOTE | 2023-01-04 09:22 | ED.NURSE ---
was able to get up to the bathroom. is concerned about his hip yet and wants P.T. to evaluate. did give breakfast. Is able to sit on the edge of the bed.
== END 2023-01-04 10:35 | disposition home or self-care (01) ==
PROVIDERS: Emergency Provider Family Medicine; PCP Surgery
DX: M79.652 Pain in left thigh (principal)
CPT/HCPCS: 72170; 73552; 93971; 96372; 97116; 97162; 99284; A9270; J1885

== ENCOUNTER 2023-01-14 19:23 | Outpatient (CLI) | payer MEDICARE, OTHER, SELFPAY | END 2023-01-14 19:24 | disposition home or self-care (01) | LOC: AMB 01-21 13:35 | PROVIDERS: PCP Surgery; Visit Provider Family Medicine | DX: R07.9 Chest pain, unspecified (principal); I95.9 Hypotension, unspecified; R42 Dizziness and giddiness | CPT/HCPCS: A0425; A0427 ==

== ENCOUNTER 2023-01-14 20:08 | Emergency (ER) | payer MEDICARE, OTHER, SELFPAY ==
[2023-01-14] VITALS (51 sets, daily range): BP systolic 66–111; BP diastolic 48–74; PULSE 95–162; RESP 6–33; TEMP 36.8; O2SAT 83–100; BMI 28.1
--- NOTE | 2023-01-14 20:12 | XR_ITS ---
Patient: ANURAG SANTOS Facility:?[facility] Patient ID:?[id number] Site Patient ID:?[id number]. Site :?[id number] Study:?XRay-Chest AP PORTABLE-01/14/2023 8:25:49 PM Ordering Physician:James Chapman Final Report: INDICATION: .a fib...RVR TECHNIQUE: Chest 1 views. COMPARISON: May 2019. FINDINGS: Retention of the right Lungs: Normal lung volume. No consolidation. The tracheobronchial tree and hilar structures are unremarkable. Pleura: No pleural effusion or pneumothorax. Heart and Mediastinum: Cardiomegaly. Atherosclerotic aorta. Bones: No acute displaced osseous process. IMPRESSION: No consolidation. Dictated by Virgil Gutierrez MD @ 01/14/2023 9:45:44 PM Signed by:?Virgil Gutierrez MD @01/14/2023 9:45:44 PM (Electronic Signature)
[2023-01-14] MEDS: KETAMINE HCL 100 MG/ML inj 85 MG IVPB (20:15)
[2023-01-14] MEDS: 0.9 % SODIUM CHLORIDE 1000 ml 1,000 ML IV (20:20)
[2023-01-14 20:27] LABS: Troponin, Point-of-Care* 0.06 ng/ml (0.01-0.04)
[2023-01-14] MEDS: AMIODARONE 50 MG/ML inj 150 MG in 5 % DEXTROSE 100 ML 100 ML 618 MG IVPB (20:33)
[2023-01-14 20:35] LABS: Lactate* 2.1 mmol/L (0.5-1.9)
[2023-01-14 20:38] LABS: Albumin* 3.3 g/dL (3.3-5.0); Chloride* 109 mmol/L (96-114); Potassium* 3.8 mmol/L (3.6-5.1); Sodium* 138 mmol/L (135-149)
--- NOTE | 2023-01-14 20:39 | ED_ITS ---
HPI - Arrhythmia/Palpitations General Date Seen: 01/14/23 <Adela Solano MD - Last Filed: 01/14/23 23:22> Chief Complaint: Arrhythmia/Palpitations <Adela Solano MD - Last Filed: 01/14/23 23:22> Stated Complaint: dizziness <Adela Solano MD - Last Filed: 01/14/23 23:22> Time Seen by Provider: 01/14/23 20:11 <Adela Solano MD - Last Filed: 01/14/23 23:22> Source: patient and EMS <Adela Solano MD - Last Filed: 01/14/23 23:22> Mode of arrival: EMS <Adela Solano MD - Last Filed: 01/14/23 23:22> History of Present Illness HPI narrative: Patient is an 87-year-old male coming in with EMS for complaint of dizziness and nausea at home. EMS reported that his last blood pressure EN route was 80s systolic, had heart rates up words of 190s EN route. On arrival, patient is alert and talking to me. He states he is just going to take a nap in sleep. He is denying pain anywhere. He states he was starting to feel nauseated at home tonight which is why they called 911. As I was talking to him and nursing staff was getting monitoring done, he stated he was feeling quite dizzy and lightheaded. His blood pressure was systolic 72 at that point, heart rate was in the 150s, wide complex on the monitor. He was still oxygenating in the upper 90s. EMS had 1 IV insight, nursing staff was working at getting all the pulse oximetry, cardiac monitoring and an EKG here. His initial EKG showed wide complex atrial fibrillation with RVR, 158 beats per minute. Underlying left bundle branch block. Patient at this time was alert and conversive, with closes eyes but easily awakened them with just voice stimulation, saying his name. Sclera clear, conjugate gaze, speech normal. Neck thin, no masses urging of any distension. Lungs were clear, no wheezing crackles, noted to be coughing some, sounded to be a dry cough. CV irregular, fast, could not hear any murmur. Abdomen soft, nontender, no masses. Had about 2 to 3+ pitting edema on the pretibial areas of his legs. Would move arms and legs, following commands. Again, during this initial intake, patient had a blood pressure that was 72/54, pulse was anywhere from 140s to 170s. Did contact my partner Dr. Miranda to let him know that we needed to attempt cardioversion emergently on this patient. Was able to see that patient was on Eliquis chronically, making emergent cardioversion much less concerning for any thromboembolic events to the brain. I was able to briefly talked to his , she states that this happens with his heart. She states he developed cold symptoms on , more of like a cold in a dry cough. He started to feel worse today, they noted nausea in him feeling dizzy or lightheaded. She did decide to have him evaluated. Reviewed with her that we needed to do an emergent cardioversion for his high heart rate and low blood pressure. This was considered emergent, she did give verbal consent. Appropriate monitoring was in place, patient was placed on supplemental oxygen. Ketamine was provided by Dr. Miranda, 85 mg IV given, please see his separate note. I attempted 2 separate synchronized shocks of 200 joules with out any cardioversion. We did do a follow-up EKG, still showed atrial fibrillation with RVR. Still with left bundle branch block obviously. Patient had received the initial 500 mL normal saline bolus from EMS, subsequent 1 L normal saline was started. He was still hypotensive and tachycardic, needed to consult with Cardiology. Briefly started with Dr. Leroy from [facility]. He did recommend starting amiodarone 150 mg over 30 minutes. Upon review of the patient's chart there, he had seen that most of the cardiology was at [place]. Did subsequently contact [facility] and spoke with Dr. Jaramillo. During that time patient was continued to be hypotensive, briefly norepinephrine was started but after speaking with [facility], did want 500 mcg of IV digoxin given, did have is continue with the amiodarone. Plan will be to do the 6 hour drip after the initial 150 mg is given. He wanted the digoxin given and then to see where the patient's blood pressure and pulse was after 30 minutes. When patient was coming out of the ketamine, did have a little bit of agitation and some IV Ativan was given. Vitals are documented on the critical care she ate, medicines and interventions are documented there is well. <Adela Solano MD - Last Filed: 01/14/23 23:22> Related Data Home Medications: Home Medications Medication Instructions Recorded Confirmed apixaban 5 mg tablet (Eliquis) 5 mg PO Q12H 01/16/22 01/04/23 diclofenac sodium 1 % topical gel 2 g topical Q6H 01/16/22 01/04/23 famotidine 40 mg tablet 40 mg PO DAILY 01/16/22 01/04/23 loratadine 10 mg tablet 10 mg PO Q24H PRN 01/16/22 01/04/23 metoprolol succinate 50 mg 50 mg PO Q12H 01/16/22 01/04/23 tablet,extended release 24 hr pantoprazole 40 mg tablet,delayed 40 mg PO Q12H 01/16/22 01/04/23 release simvastatin 20 mg tablet 20 mg PO DAILY 01/16/22 01/04/23 sucralfate 100 mg/mL oral 10 ml PO Q6H 01/16/22 01/04/23 suspension tamsulosin 0.4 mg capsule 0.4 mg PO Q24H 01/16/22 01/04/23 torsemide 10 mg tablet 10 mg PO BID PRN 01/16/22 01/04/23 venlafaxine 150 mg 150 mg PO DAILY 01/16/22 01/04/23 capsule,extended release 24 hr levothyroxine 112 mcg tablet 112 mcg PO DAILY 01/04/23 01/04/23 sacubitril 97 mg-valsartan 103 mg 1 tab PO BID 01/04/23 01/04/23 tablet (Entresto) Previous Rx's Medication Instructions Recorded hydrocodone 5 mg-acetaminophen 325 1 tab PO BID PRN pain #10 tabs 01/04/23 mg tablet <Adela Solano MD - Last Filed: 01/14/23 23:22> Allergies/Adverse Reactions: Allergies Allergy/AdvReac Type Severity Reaction Status Date / Time No Known Drug Allergies Allergy Verified 01/04/23 07:10 <Adela Solano MD - Last Filed: 01/14/23 23:22> Review of Systems Status of ROS: Reports: 6 or more systems reviewed and unremarkable except as noted in History and below <Adela Solano MD - Last Filed: 01/14/23 23:22> [facility] PFS Social History: Social History Smoking Status: Never smoker Do you use any of these nicotine containing products: None Second hand tobacco smoke exposure: No How often do you have a drink containing alcohol: never How often do you have six or more drinks on one occasion: Never AUDIT-C Alcohol total score: 0 Non-prescribed substance use: denies use service: Yes <Adela Solano MD - Last Filed: 01/14/23 23:22> Exam Const: Vital Signs, click to edit/add: Vital Signs - 24 hr 01/14/23 20:22 01/14/23 20:23 01/14/23 20:25 Temperature Pulse Rate 162 H 149 H 148 H Pulse Rate [Right Pulse Oximeter] Respiratory Rate 17 22 15 Blood Pressure 80/56 L Blood Pressure [Ri ght Upper Arm] Pulse Oximetry 96 100 97 Oxygen Delivery Me thod Oxygen Flow Rate 01/14/23 20:26 01/14/23 20:26 01/14/23 20:27 Temperature 98.2 F Pulse Rate 149 H 153 H Pulse Rate [Right Pulse Oximeter] 155 H Respiratory Rate 16 20 13 Blood Pressure 86/49 L 79/48 L Blood Pressure [Ri ght Upper Arm] 86/51 L Pulse Oximetry 99 100 99 Oxygen Delivery Me thod Room Air Oxygen Flow Rate 01/14/23 20:30 01/14/23 20:32 01/14/23 20:35 Temperature Pulse Rate 147 H 152 H 156 H Pulse Rate [Right Pulse Oximeter] Respiratory Rate 18 28 H 13 Blood Pressure 79/63 L Blood Pressure [Ri ght Upper Arm] Pulse Oximetry 99 98 100 Oxygen Delivery Me thod Oxygen Flow Rate 01/14/23 20:37 01/14/23 20:40 01/14/23 20:42 Temperature Pulse Rate 145 H 136 H 142 H Pulse Rate [Right Pulse Oximeter] Respiratory Rate 26 H 29 H 26 H Blood Pressure 90/72 67/52 L Blood Pressure [Ri ght Upper Arm] Pulse Oximetry 99 96 84 L Oxygen Delivery Me thod Oxygen Flow Rate 01/14/23 20:45 01/14/23 20:46 01/14/23 20:47 Temperature Pulse Rate 95 135 H Pulse Rate [Right Pulse Oximeter] Respiratory Rate 30 H 29 H Blood Pressure 94/68 66/53 L Blood Pressure [Ri ght Upper Arm] Pulse Oximetry 83 L 96 Oxygen Delivery Me thod Oxygen Flow Rate 01/14/23 20:49 01/14/23 20:50 01/14/23 20:52 Temperature Pulse Rate 137 H 123 H 135 H Pulse Rate [Right Pulse Oximeter] Respiratory Rate 31 H 27 H 24 Blood Pressure 70/55 L 95/56 L Blood Pressure [Ri ght Upper Arm] Pulse Oximetry 98 93 94 Oxygen Delivery Me thod Oxygen Flow Rate 01/14/23 20:55 01/14/23 20:57 01/14/23 21:00 Temperature Pulse Rate 136 H 139 H 103 H Pulse Rate [Right Pulse Oximeter] Respiratory Rate 33 H 23 26 H Blood Pressure 86/63 L 92/58 L Blood Pressure [Ri ght Upper Arm] Pulse Oximetry 91 91 93 Oxygen Delivery Me thod Oxygen Flow Rate 01/14/23 21:01 01/14/23 21:02 01/14/23 21:05 Temperature Pulse Rate 105 H 109 H 109 H Pulse Rate [Right Pulse Oximeter] Respiratory Rate 27 H 13 Blood Pressure 97/60 Blood Pressure [Ri ght Upper Arm] Pulse Oximetry 87 L 97 97 Oxygen Delivery Me thod Oxygen Flow Rate 01/14/23 21:07 01/14/23 21:10 01/14/23 21:12 Temperature Pulse Rate 110 H 111 H 109 H Pulse Rate [Right Pulse Oximeter] Respiratory Rate 13 6 L 10 L Blood Pressure 94/74 92/60 Blood Pressure [Ri ght Upper Arm] Pulse Oximetry 98 99 97 Oxygen Delivery Me thod Oxygen Flow Rate 01/14/23 21:15 01/14/23 21:17 01/14/23 21:20 Temperature Pulse Rate 111 H 112 H 111 H Pulse Rate [Right Pulse Oximeter] Respiratory Rate 28 H 14 Blood Pressure 89/64 L Blood Pressure [Ri ght Upper Arm] Pulse Oximetry 98 99 97 Oxygen Delivery Me thod Oxygen Flow Rate 01/14/23 21:21 01/14/23 21:21 01/14/23 21:25 Temperature Pulse Rate 115 H 108 H 115 H Pulse Rate [Right Pulse Oximeter] Respiratory Rate 23 12 Blood Pressure 92/60 Blood Pressure [Ri ght Upper Arm] Pulse Oximetry 89 94 Oxygen Delivery Me thod Oxygen Flow Rate 01/14/23 21:27 01/14/23 21:30 01/14/23 21:31 Temperature Pulse Rate 109 H 105 H 108 H Pulse Rate [Right Pulse Oximeter] Respiratory Rate Blood Pressure 98/65 106/61 Blood Pressure [Ri ght Upper Arm] Pulse Oximetry 94 94 88 Oxygen Delivery Me thod Oxygen Flow Rate 01/14/23 21:35 01/14/23 21:36 01/14/23 21:40 Temperature Pulse Rate 103 H 114 H 108 H Pulse Rate [Right Pulse Oximeter] Respiratory Rate Blood Pressure 104/67 Blood Pressure [Ri ght Upper Arm] Pulse Oximetry 96 88 87 L Oxygen Delivery Me thod Oxygen Flow Rate 01/14/23 21:42 01/14/23 21:45 01/14/23 21:47 Temperature Pulse Rate 107 H 106 H 106 H Pulse Rate [Right Pulse Oximeter] Respiratory Rate Blood Pressure 110/61 100/70 Blood Pressure [Ri ght Upper Arm] Pulse Oximetry 93 91 93 Oxygen Delivery Me thod Oxygen Flow Rate 01/14/23 21:50 01/14/23 21:52 01/14/23 21:55 Temperature Pulse Rate 107 H 105 H 100 Pulse Rate [Right Pulse Oximeter] Respiratory Rate Blood Pressure 96/66 Blood Pressure [Ri ght Upper Arm] Pulse Oximetry 91 94 86 L Oxygen Delivery Me thod Oxygen Flow Rate 01/14/23 21:57 01/14/23 22:00 01/14/23 22:02 Temperature Pulse Rate 105 H 113 H 119 H Pulse Rate [Right Pulse Oximeter] Respiratory Rate Blood Pressure 78/66 L 111/60 Blood Pressure [Ri ght Upper Arm] Pulse Oximetry 89 91 88 Oxygen Delivery Me thod Oxygen Flow Rate 01/14/23 22:05 01/14/23 22:07 01/14/23 22:10 Temperature Pulse Rate 103 H 108 H 109 H Pulse Rate [Right Pulse Oximeter] Respiratory Rate Blood Pressure 108/54 L Blood Pressure [Ri ght Upper Arm] Pulse Oximetry 95 93 95 Oxygen Delivery Me thod Oxygen Flow Rate 01/14/23 22:12 01/14/23 22:14 Temperature Pulse Rate 105 H Pulse Rate [Right Pulse Oximeter] Respiratory Rate Blood Pressure 110/66 Blood Pressure [Ri ght Upper Arm] Pulse Oximetry 95 97 Oxygen Delivery Me thod Nasal Cannula Oxygen Flow Rate 3 Initial physical examination is documented in the HPI with the initial evaluation: Patient at this time was alert and conversive, with closes eyes but easily awakened them with just voice stimulation, saying his name. Sclera clear, conjugate gaze, speech normal. Neck thin, no masses urging of any distension. Lungs were clear, no wheezing crackles, noted to be coughing some, sounded to be a dry cough. CV irregular, fast, could not hear any murmur. Abdomen soft, nontender, no masses. Had about 2 to 3+ pitting edema on the pretibial areas of his legs. Would move arms and legs, following commands. Again, during this initial intake, patient had a blood pressure that was 72/54, pulse was anywhere from 140s to 170s. <Adela Solano MD - Last Filed: 01/14/23 23:22> Vital Signs, click to edit/add: Vital Signs - 24 hr 01/14/23 20:22 01/14/23 20:23 01/14/23 20:25 Temperature Pulse Rate 162 H 149 H 148 H Pulse Rate [Right Pulse Oximeter] Respiratory Rate 17 22 15 Blood Pressure 80/56 L Blood Pressure [Ri ght Upper Arm] Pulse Oximetry 96 100 97 Oxygen Delivery Me thod Oxygen Flow Rate 01/14/23 20:26 01/14/23 20:26 01/14/23 20:27 Temperature 98.2 F Pulse Rate 149 H 153 H Pulse Rate [Right Pulse Oximeter] 155 H Respiratory Rate 16 20 13 Blood Pressure 86/49 L 79/48 L Blood Pressure [Ri ght Upper Arm] 86/51 L Pulse Oximetry 99 100 99 Oxygen Delivery Me thod Room Air Oxygen Flow Rate 01/14/23 20:30 01/14/23 20:32 01/14/23 20:35 Temperature Pulse Rate 147 H 152 H 156 H Pulse Rate [Right Pulse Oximeter] Respiratory Rate 18 28 H 13 Blood Pressure 79/63 L Blood Pressure [Ri ght Upper Arm] Pulse Oximetry 99 98 100 Oxygen Delivery Me thod Oxygen Flow Rate 01/14/23 20:37 01/14/23 20:40 01/14/23 20:42 Temperature Pulse Rate 145 H 136 H 142 H Pulse Rate [Right Pulse Oximeter] Respiratory Rate 26 H 29 H 26 H Blood Pressure 90/72 67/52 L Blood Pressure [Ri ght Upper Arm] Pulse Oximetry 99 96 84 L Oxygen Delivery Me thod Oxygen Flow Rate 01/14/23 20:45 01/14/23 20:46 01/14/23 20:47 Temperature Pulse Rate 95 135 H Pulse Rate [Right Pulse Oximeter] Respiratory Rate 30 H 29 H Blood Pressure 94/68 66/53 L Blood Pressure [Ri ght Upper Arm] Pulse Oximetry 83 L 96 Oxygen Delivery Me thod Oxygen Flow Rate 01/14/23 20:49 01/14/23 20:50 01/14/23 20:52 Temperature Pulse Rate 137 H 123 H 135 H Pulse Rate [Right Pulse Oximeter] Respiratory Rate 31 H 27 H 24 Blood Pressure 70/55 L 95/56 L Blood Pressure [Ri ght Upper Arm] Pulse Oximetry 98 93 94 Oxygen Delivery Me thod Oxygen Flow Rate 01/14/23 20:55 01/14/23 20:57 01/14/23 21:00 Temperature Pulse Rate 136 H 139 H 103 H Pulse Rate [Right Pulse Oximeter] Respiratory Rate 33 H 23 26 H Blood Pressure 86/63 L 92/58 L Blood Pressure [Ri ght Upper Arm] Pulse Oximetry 91 91 93 Oxygen Delivery Me thod Oxygen Flow Rate 01/14/23 21:01 01/14/23 21:02 01/14/23 21:05 Temperature Pulse Rate 105 H 109 H 109 H Pulse Rate [Right Pulse Oximeter] Respiratory Rate 27 H 13 Blood Pressure 97/60 Blood Pressure [Ri ght Upper Arm] Pulse Oximetry 87 L 97 97 Oxygen Delivery Me thod Oxygen Flow Rate 01/14/23 21:07 01/14/23 21:10 01/14/23 21:12 Temperature Pulse Rate 110 H 111 H 109 H Pulse Rate [Right Pulse Oximeter] Respiratory Rate 13 6 L 10 L Blood Pressure 94/74 92/60 Blood Pressure [Ri ght Upper Arm] Pulse Oximetry 98 99 97 Oxygen Delivery Me thod Oxygen Flow Rate 01/14/23 21:15 01/14/23 21:17 01/14/23 21:20 Temperature Pulse Rate 111 H 112 H 111 H Pulse Rate [Right Pulse Oximeter] Respiratory Rate 28 H 14 Blood Pressure 89/64 L Blood Pressure [Ri ght Upper Arm] Pulse Oximetry 98 99 97 Oxygen Delivery Me thod Oxygen Flow Rate 01/14/23 21:21 01/14/23 21:21 01/14/23 21:25 Temperature Pulse Rate 115 H 108 H 115 H Pulse Rate [Right Pulse Oximeter] Respiratory Rate 23 12 Blood Pressure 92/60 Blood Pressure [Ri ght Upper Arm] Pulse Oximetry 89 94 Oxygen Delivery Me thod Oxygen Flow Rate 01/14/23 21:27 01/14/23 21:30 01/14/23 21:31 Temperature Pulse Rate 109 H 105 H 108 H Pulse Rate [Right Pulse Oximeter] Respiratory Rate Blood Pressure 98/65 106/61 Blood Pressure [Ri ght Upper Arm] Pulse Oximetry 94 94 88 Oxygen Delivery Me thod Oxygen Flow Rate 01/14/23 21:35 01/14/23 21:36 01/14/23 21:40 Temperature Pulse Rate 103 H 114 H 108 H Pulse Rate [Right Pulse Oximeter] Respiratory Rate Blood Pressure 104/67 Blood Pressure [Ri ght Upper Arm] Pulse Oximetry 96 88 87 L Oxygen Delivery Me thod Oxygen Flow Rate 01/14/23 21:42 01/14/23 21:45 01/14/23 21:47 Temperature Pulse Rate 107 H 106 H 106 H Pulse Rate [Right Pulse Oximeter] Respiratory Rate Blood Pressure 110/61 100/70 Blood Pressure [Ri ght Upper Arm] Pulse Oximetry 93 91 93 Oxygen Delivery Me thod Oxygen Flow Rate 01/14/23 21:50 01/14/23 21:52 01/14/23 21:55 Temperature Pulse Rate 107 H 105 H 100 Pulse Rate [Right Pulse Oximeter] Respiratory Rate Blood Pressure 96/66 Blood Pressure [Ri ght Upper Arm] Pulse Oximetry 91 94 86 L Oxygen Delivery Me thod Oxygen Flow Rate 01/14/23 21:57 01/14/23 22:00 01/14/23 22:02 Temperature Pulse Rate 105 H 113 H 119 H Pulse Rate [Right Pulse Oximeter] Respiratory Rate Blood Pressure 78/66 L 111/60 Blood Pressure [Ri ght Upper Arm] Pulse Oximetry 89 91 88 Oxygen Delivery Me thod Oxygen Flow Rate 01/14/23 22:05 01/14/23 22:07 01/14/23 22:10 Temperature Pulse Rate 103 H 108 H 109 H Pulse Rate [Right Pulse Oximeter] Respiratory Rate Blood Pressure 108/54 L Blood Pressure [Ri ght Upper Arm] Pulse Oximetry 95 93 95 Oxygen Delivery Me thod Oxygen Flow Rate 01/14/23 22:12 01/14/23 22:14 Temperature Pulse Rate 105 H Pulse Rate [Right Pulse Oximeter] Respiratory Rate Blood Pressure 110/66 Blood Pressure [Ri ght Upper Arm] Pulse Oximetry 95 97 Oxygen Delivery Me thod Nasal Cannula Oxygen Flow Rate 3 <Valentino Miranda DO - Last Filed: 01/14/23 21:40> Documenting provider has reviewed patient's vital signs: yes <Adela Solano MD - Last Filed: 01/14/23 23:22> Course Course ED Course: 8:31 p.m. initial conversation with Cl, subsequently contacted [place] were patient has had most of his cardiac cares. Did speak with Dr. Jaramillo. He did note that the patient had been seen at [facility] for palliative care, did have questions on this. Did certainly make recommendations as for patient's care, see above. He did want to know what all the would want, code status. I did review with him are situation that we had no Cardiology, had no in house Hospitals overnight. Really did not feel like oral should stay here unless he was going to be made comfort cares. It certainly did not seem like a comfort care situation at this point but will review this further with his . He wanted 500 mcg IV digoxin given, did not recommend using norepinephrine at this point. He stated that we could use the digoxin to try to slow his heart rate, give it 30 minutes and follow-up with him. Continue with the amiodarone bolus and then infusion. Reviewed that the patient is chronically anticoagulated with Eliquis. Did subsequently speak with patient's . He certainly is palliative care, DNR DNI. She would consider medications and doing treatments with medications but nothing invasive, nothing surgical. Reviewed with her that we really could not provide that level of care here. We have no Cardiology, this is beyond basic cares that we do provide here. She did agree to transfer, [place] was acceptable to her. 9:33 p.m. patient is a little agitated, likely some post ketamine side effects. Blood pressure systolic is 109. Will try a very small dose IV Ativan to see if it does help with his symptoms. Have ordered 0.25 mg IV Ativan. 9:53 p.m. Called [facility] back, updated Dr. Jaramillo on vitals, pulse 112, BP 96/66, oxygen sats upper 90's. Updated him on patient's advanced directives. His would have him get medications but no surgical interventions. He is DNR DNI. He accepts to the PCU. Will await for bed placement. We are to leave him on the amiodarone drip, they can take that in the PCU floor care. He did see the 3rd EKG, does think that that still is atrial fibrillation. <Adela Guajardo MD - Last Filed: 01/14/23 23:22> Vital Signs Vital signs: Initial Vital Signs Pulse Rate 162 H 01/14/23 20:22 Respiratory Rate 17 01/14/23 20:22 Blood Pressure 80/56 L 01/14/23 20:22 Blood Pressure Mean 64 L 01/14/23 20:22 Pulse Oximetry 96 01/14/23 20:22 Vital Signs Pulse Rate 162 H 01/14/23 20:22 Respiratory Rate 17 01/14/23 20:22 Blood Pressure 80/56 L 01/14/23 20:22 Pulse Oximetry 96 01/14/23 20:22 Temperature 98.2 F 01/14/23 20:26 Pulse Rate 105 H 01/14/23 22:12 Respiratory Rate 12 01/14/23 21:25 Blood Pressure 110/66 01/14/23 22:12 Pulse Oximetry 97 01/14/23 22:14 Oxygen Delivery Method Nasal Cannula 01/14/23 22:14 Oxygen Flow Rate 3 01/14/23 22:14 <Adela Solano MD - Last Filed: 01/14/23 23:22> Initial Vital Signs Pulse Rate 162 H 01/14/23 20:22 Respiratory Rate 17 01/14/23 20:22 Blood Pressure 80/56 L 01/14/23 20:22 Blood Pressure Mean 64 L 01/14/23 20:22 Pulse Oximetry 96 01/14/23 20:22 Vital Signs Pulse Rate 162 H 01/14/23 20:22 Respiratory Rate 17 01/14/23 20:22 Blood Pressure 80/56 L 01/14/23 20:22 Pulse Oximetry 96 01/14/23 20:22 Temperature 98.2 F 01/14/23 20:26 Pulse Rate 105 H 01/14/23 22:12 Respiratory Rate 12 01/14/23 21:25 Blood Pressure 110/66 01/14/23 22:12 Pulse Oximetry 97 01/14/23 22:14 Oxygen Delivery Method Nasal Cannula 01/14/23 22:14 Oxygen Flow Rate 3 01/14/23 22:14 <Valentino Miranda DO - Last Filed: 01/14/23 21:40> MDM - Arrhythmia/Palpitations Lab Data Attestation: I reviewed the patient's lab results. <Adela Solano MD - Last Filed: 01/14/23 23:22> Labs: Lab Results 01/14/23 01/14/23 Range/Units 20:13 20:14 WBC 7.79 (4.50-11.00) K/uL RBC 3.74 L (4.30-5.90) m/uL Hgb 10.6 L (13.5-17.5) gm/dL Hct 34.0 L (37.0-53.0) % MCV 91 (80-100) fL MCH 28 (26-34) pg MCHC 31 L (32-36) gm/dL RDW Coeff of Kaleigh 14.8 (11.5-15.5) % Plt Count 213 (140-440) K/uL Neut % (Auto) 74.9 H (42.0-72.0) % Lymph % (Auto) 11.2 L (20-44) % [place] % (Auto) 11.2 H (0.0-11.0) % Eos % (Auto) 1.8 (0.0-7.0) % Baso % (Auto) 0.1 (0.0-3.0) % Neut # (Auto) 5.80 (1.7-7.0) K/uL Lymph # (Auto) 0.90 (0.90-2.90) K/uL [place] # (Auto) 0.90 (0.00-0.90) K/UL Eos # (Auto) 0.14 (0.00-0.50) K/uL Baso # (Auto) 0.01 (0.00-0.30) K/uL Abs Immat Gran (auto) 0.06 (0.00-0.30) K/uL Imm/Tot Granulo (auto) 0.8 % Sodium 138 (135-149) mmol/L Potassium 3.8 (3.6-5.1) mmol/L Chloride 109 (96-114) mmol/L Carbon Dioxide 22 (20-32) mmol/L Anion Gap 7 (7-15) mEq/L BUN 20 (7-30) mg/dL Creatinine 1.1 (0.5-1.5) mg/dL Estimated Creat Clear 45.77 Estimated GFR 65 ml/min Glucose 139 H (60-115) mg/dL Lactate 2.1 H (0.5-1.9) mmol/L Calcium 8.6 (8.4-10.6) mg/dL Magnesium 2.4 (1.5-2.6) mg/dL Total Bilirubin 0.8 (0.1-1.5) mg/dL AST 108 H (12-35) U/L ALT 49 (4-50) U/L Alkaline Phosphatase 165 H (40-150) U/L NT-Pro-B Natriuret Pep 38583 pg/mL Total Protein 6.0 (6.0-8.3) g/dL Albumin 3.3 (3.3-5.0) g/dL Procalcitonin 0.04 (<0.50) ng/mL SARS-CoV-2 (PCR) Negative SARS-CoV-2 (Negative) Influenza Type A (PCR) Negative PCR FLU A (Negative) Influenza Type B (PCR) Negative PCR FLU B (Negative) RSV (PCR) Negative PCR RSV (Negative) POC Troponin I 0.06 H (0.01-0.04) ng/ml <Adela Solano MD - Last Filed: 01/14/23 23:22> Lab Results 01/14/23 01/14/23 Range/Units 20:13 20:14 WBC 7.79 (4.50-11.00) K/uL RBC 3.74 L (4.30-5.90) m/uL Hgb 10.6 L (13.5-17.5) gm/dL Hct 34.0 L (37.0-53.0) % MCV 91 (80-100) fL MCH 28 (26-34) pg MCHC 31 L (32-36) gm/dL RDW Coeff of Kaleigh 14.8 (11.5-15.5) % Plt Count 213 (140-440) K/uL Neut % (Auto) 74.9 H (42.0-72.0) % Lymph % (Auto) 11.2 L (20-44) % [place] % (Auto) 11.2 H (0.0-11.0) % Eos % (Auto) 1.8 (0.0-7.0) % Baso % (Auto) 0.1 (0.0-3.0) % Neut # (Auto) 5.80 (1.7-7.0) K/uL Lymph # (Auto) 0.90 (0.90-2.90) K/uL [place] # (Auto) 0.90 (0.00-0.90) K/UL Eos # (Auto) 0.14 (0.00-0.50) K/uL Baso # (Auto) 0.01 (0.00-0.30) K/uL Abs Immat Gran (auto) 0.06 (0.00-0.30) K/uL Imm/Tot Granulo (auto) 0.8 % Sodium 138 (135-149) mmol/L Potassium 3.8 (3.6-5.1) mmol/L Chloride 109 (96-114) mmol/L Carbon Dioxide 22 (20-32) mmol/L Anion Gap 7 (7-15) mEq/L BUN 20 (7-30) mg/dL Creatinine 1.1 (0.5-1.5) mg/dL Estimated Creat Clear 45.77 Estimated GFR 65 ml/min Glucose 139 H (60-115) mg/dL Lactate 2.1 H (0.5-1.9) mmol/L Calcium 8.6 (8.4-10.6) mg/dL Magnesium 2.4 (1.5-2.6) mg/dL Total Bilirubin 0.8 (0.1-1.5) mg/dL AST 108 H (12-35) U/L ALT 49 (4-50) U/L Alkaline Phosphatase 165 H (40-150) U/L NT-Pro-B Natriuret Pep 22505 pg/mL Total Protein 6.0 (6.0-8.3) g/dL Albumin 3.3 (3.3-5.0) g/dL Procalcitonin 0.04 (<0.50) ng/mL SARS-CoV-2 (PCR) Negative SARS-CoV-2 (Negative) Influenza Type A (PCR) Negative PCR FLU A (Negative) Influenza Type B (PCR) Negative PCR FLU B (Negative) RSV (PCR) Negative PCR RSV (Negative) POC Troponin I 0.06 H (0.01-0.04) ng/ml <Valentino Miranda DO - Last Filed: 01/14/23 21:40> Imaging Data Chest x-ray: Attestation: I have reviewed the pertinent imaging results. <Adela Guajardo MD - Last Filed: 01/14/23 23:22> My impression: I appreciate cardiomegaly, no overt CHF or infiltrate. <Adela Solano MD - Last Filed: 01/14/23 23:22> Radiologist's impression: Patient: ANURAG SANTOS Facility:?[facility] Patient ID:?[id number] Site Patient ID:?[id number]. Site :?[id number] Study:?XRay Chest AP PORTABLE-01/14/2023 8:25:49 PM Ordering Physician:James Chapman Final Report: INDICATION: .a fib...RVR TECHNIQUE: Chest 1 views. COMPARISON: May 2019. FINDINGS: Retention of the right Lungs: Normal lung volume. No consolidation. The tracheobronchial tree and hilar structures are unremarkable. Pleura: No pleural effusion or pneumothorax. Heart and Mediastinum: Cardiomegaly. Atherosclerotic aorta. Bones: No acute displaced osseous process. IMPRESSION: No consolidation. Dictated by Virgil Gutierrez MD @ 01/14/2023 9:45:44 PM (Electronic Signature) <Adela Solano MD - Last Filed: 01/14/23 23:22> Critical Care Time Critical Care Time Critical Care Time: Yes Attestation: The patient required my highest level preparedness to intervene emergently and I personally spent this critical care time directly and personally managing the patient. This critical care time included: Obtaining a history; Examining the patient; Pulse oximetry; Ordering and reviewing of studies; Arranging urgent treatment with development of a management plan; Evaluation of patients response to treatment; Frequent reassessment discussions with other providers. This critical care time was performed to assess and manage the high probability of imminent life-threatening deterioration that could result in multiorgan failure. It was exclusive of separate billable procedures and treating other patients and teaching time. <Adela Solano MD - Last Filed: 01/14/23 23:22> Total Critical Care Time in Minutes: 144 (Patient was attended to, discussions with family, consultation with specialty from Cardiology in compass this total time for critical care.) <Adela Solano MD - Last Filed: 01/14/23 23:22> Discharge Plan Discharge Clinical Impression: Acute hypotension, Atrial fibrillation with rapid ventricular response <Adela Solano MD - Last Filed: 01/14/23 23:22> Patient Disposition: [facility] <Adela Solano MD - Last Filed: 01/14/23 23:22> Discharge Location: [facility] <Adela Solano MD - Last Filed: 01/14/23 23:22> Condition: Guarded <Adela Solano MD - Last Filed: 01/14/23 23:22> Prescriptions: No Action metoprolol succinate 50 mg tablet extended release 24 hr 50 mg PO Q12H sucralfate 100 mg/mL suspension 10 ml PO Q6H famotidine 40 mg tablet 40 mg PO DAILY venlafaxine 150 mg capsule,extended release 24hr 150 mg PO DAILY torsemide 10 mg tablet 10 mg PO BID PRN tamsulosin 0.4 mg capsule 0.4 mg PO Q24H pantoprazole 40 mg tablet,delayed release (DR/EC) 40 mg PO Q12H simvastatin 20 mg tablet 20 mg PO DAILY loratadine 10 mg tablet 10 mg PO Q24H PRN diclofenac sodium 1 % gel 2 g topical Q6H Patient Comments: APPLY 2 GRAMS TOPICALLY TO THE AFFECTED AREA FOUR TIMES DAILY Eliquis 5 mg tablet 5 mg PO Q12H levothyroxine 112 mcg tablet 112 mcg PO DAILY Entresto 97-103 mg tablet 1 tab PO BID hydrocodone-acetaminophen 5-325 mg tablet 1 tab PO BID PRN (Reason: pain) Qty: 10 0RF <Adela Solano MD - Last Filed: 01/14/23 23:22> [facility] <Adela Solano MD - Last Filed: 01/14/23 23:22> Procedures Procedural Sedation Name of person perfmorming the procedure: Valentino Miranda <Valentino Miranda, DO - Last Filed: 01/14/23 21:40> Sedation provider same as procedural provider: No <Valentino Miranda DO - Last Filed: 01/14/23 21:40> Indication: other (Cardioversion) <Valentino Miranda DO - Last Filed: 01/14/23 21:40> ASA Class: III <Valentino Miranda DO - Last Filed: 01/14/23 21:40> Preparation: procurement professional applied, pulse oximeter, supplemental O2 applied, suction/airway equipment at bedside and IV secured <Valentino Miranda DO - Last Filed: 01/14/23 21:40> Ketamine: IV <Valentino Miranda DO - Last Filed: 01/14/23 21:40> Ketamine dose (mg): 85 <Valentino Miranda DO - Last Filed: 01/14/23 21:40> Patient Tolerated Procedure: well <Valentino Miranda DO - Last Filed: 01/14/23 21:40> Complications: none <Valentino Miranda DO - Last Filed: 01/14/23 21:40> Additional Comments: Did have prolonged sedation <Valentino Miranda DO - Last Filed: 01/14/23 21:40> Additional Procedures Procedure name: Synchronized cardioversion, emergent <Adela Solano MD - Last Filed: 01/14/23 23:22> Pre procedure diagnosis: Same <Adela Solano MD - Last Filed: 01/14/23 23:22> Post procedure diagnosis: Atrial fibrillation with RVR, failed cardioversion <Adela Guajardo MD - Last Filed: 01/14/23 23:22> Site marking: not applicable <Adela Solano MD - Last Filed: 01/14/23 23:22> Estimated blood loss (if any): none <Adela Solano MD - Last Filed: 01/14/23 23:22> Additional comments: Sedation was provided by Dr. Miranda, see his note. Two attempts with 200 joule synchronized cardioversion were done, patient did not convert. Phone call to Cardiology was subsequently placed. <Adela Solano MD - Last Filed: 01/14/23 23:22>
[2023-01-14 20:41] LABS: Alanine Aminotransferase* 49 U/L (4-50); Alkaline Phosphatase* 165 U/L (40-150); Anion Gap 7 mEq/L (7-15); Aspartate Amino Transferase* 108 U/L (12-35); Basophils Absolute Auto 0.01 K/uL (0.00-0.30); Basophils Percent Auto 0.1 % (0.0-3.0); Bilirubin Total* 0.8 mg/dL (0.1-1.5); Blood Urea Nitrogen* 20 mg/dL (7-30); Carbon Dioxide* 22 mmol/L (20-32); Creatinine* 1.1 mg/dL (0.5-1.5); Eosinophils Absolute Auto 0.14 K/uL (0.00-0.50); Eosinophils Percent Auto 1.8 % (0.0-7.0); Est. Creatinine Clearance* 45.77; Estimated Glomerular Filt Rate 65 ml/min; Glucose* 139 mg/dL (60-115); Hemoglobin* 10.6 gm/dL (13.5-17.5); Immature Granulocytes Abs Auto 0.06 K/uL (0.00-0.30); Immature Granulocytes Pct Auto 0.8 %; Lymphocytes Percent Auto 11.2 % (20-44); Mean Corpuscular HGB Conc 31 gm/dL (32-36); Mean Corpuscular Hemoglobin 28 pg (26-34); Mean Corpuscular Volume 91 fL (80-100); Monocytes Percent Auto 11.2 % (0.0-11.0); Neutrophils Percent Auto 74.9 % (42.0-72.0); Platelet Count* 213 K/uL (140-440); RDW Coefficient of Variation % 14.8 % (11.5-15.5); Red Blood Count 3.74 m/uL (4.30-5.90); Slide Review Reflex No; White Blood Count* 7.79 K/uL (4.50-11.00)
[2023-01-14 20:42] LABS: Calcium* 8.6 mg/dL (8.4-10.6); Magnesium* 2.4 mg/dL (1.5-2.6)
[2023-01-14 20:58] LABS: Procalcitonin* 0.04 ng/mL (<0.50)
[2023-01-14 21:09] LABS: PCR FLU A Negative PCR FLU A (Negative); PCR FLU B Negative PCR FLU B (Negative); PCR RSV Negative PCR RSV (Negative)
[2023-01-14 21:13] LABS: NT Pro B Type NatriureticPept* 48100 pg/mL
[2023-01-14 21:14] LABS: SARS PCR* Negative SARS-CoV-2 (Negative)
[2023-01-14] MEDS: DIGOXIN 250 MCG/ML inj 500 MCG IV (21:21)
[2023-01-14] MEDS: 0.9 % SODIUM CHLORIDE 1000 ml 1,000 ML 500 ML IV (21:22)
[2023-01-14] MEDS: LORazepam 2 MG/ML inj 0.25 MG IVP (21:35)
--- NOTE | 2023-01-14 22:39 | ED.NURSE ---
2007 - Patient arrives via EMS with hypotension and rapid heart rate 2008 - HR 150-170s; pacer pads placed on patient, EKG, 18G IV placed in RIGHT AC, 3L via NC initiated 2015 - 85 mg IV Ketamine bolus 2018 - 200J shock for cardioversion, HR 137 post-shock 2019 - 200J shock for cardioversion, HR 192 post-shock 2022 - Repeat EKG; oxygen removed 2030 - Dr. Moser on phone with cardiology 2032 - Amiodarone 150mg over 30 minute bolus per cardiology & Dr. Moser; 1L NS bolus started 2042 - Trendelenberg positioning for soft pressures 2055 - Norepi 0.1 mcg/kg @ 31 mL/hour started 2057 - Amiodarone 1mg/min @ 33 mL/hour started 2099 - Norepi stopped per cardiology/ Ehsan 2103 - Ehsan discussing code status with ; DNR/DNI, no surgery 2120 - Digoxin 500mcg/mL over 5 minutes bolus started, HR 107 post-push 2121 - Second 1L of NS started 2132 - Pt restless, Ehsan notified, order for Ativan 2134 - 0.25 mg IV Ativan given 2201 - Report given to [facility] RN 2206 - EMS called for transfer 2234 - Leave [phone]
== END 2023-01-14 22:35 | disposition short-term general hospital (02) ==
LOC: ED 22:05
PROVIDERS: Emergency Provider Family Medicine; PCP Surgery
DX: I48.20 Chronic atrial fibrillation, unspecified (principal); I95.9 Hypotension, unspecified
CPT/HCPCS: 36415; 71045; 80053; 83605; 83735; 83880; 84145; 84484; 85025; 87631; 96365; 96366; 96375; 99285; 99291; 99292; J0282; J1160; J2060; J3490; J7030

== ENCOUNTER 2023-01-14 22:15 | Outpatient (CLI) | payer MEDICARE, OTHER, SELFPAY | END 2023-01-14 22:16 | disposition home or self-care (01) | LOC: AMB 01-21 13:47 | PROVIDERS: PCP Surgery; Visit Provider Family Medicine | DX: I49.9 Cardiac arrhythmia, unspecified (principal); I48.91 Unspecified atrial fibrillation; R53.1 Weakness | CPT/HCPCS: A0425; A0427; A0434 ==